=== PATIENT | male | born 1955 | race Caucasian/White ===

== ENCOUNTER → 2017-10-02 13:29 | Outpatient (CLI) | payer MEDICARE, MEDICAID, SELFPAY ==
[2017-10-02 15:00] LABS: Absolute Lymphocyte Count 2.18 X10^3/ul (0.83-4.51); Absolute Neutrophil Count 5.2 X10^3/uL (2.0-7.7); Basophil# 0.02 X10^3/uL; Basophil% 0.2 % (0-1); Eosinophil# 0.08 X10^3/uL; Hematocrit 44.6 % (40-54); Hemoglobin 14.9 g/dl (13.0-16.5); Lymphocyte # 2.18 X10^3/ul (4.0); Lymphocyte % 26.1 % (19-41); Mean Corp Hgb Conc 33.4 g/gl (32-36); Mean Corpuscular Hgb 29.5 pg (27.0-32.0); Mean Corpuscular Volume 88.3 fL (80-94); Mean Platelet Vol. 11.6 fl (6.2-12.0); Monocyte# 0.81 X10^3/uL; Monocyte% 9.7 % (0-10); Neutrophil # 5.23 X10^3/uL (2.7-7.7); Neutrophil % 62.6 % (47-70); Platelet Count 174 K/mm3 (150-450); RBC Distribution Width CV 14.7 % (11.6-14.6); RBC Distribution Width SD 47.4 fl (35.1-43.9); Red Blood Count 5.05 M/mm3 (4.6-6.2); White Blood Count 8.4 K/mm3 (4.4-11.0)
[2017-10-02 15:02] LABS: POSITIVE COUNT NO; POSITIVE DIFFERENTIAL NO; POSITIVE MORPHOLOGY NO
[2017-10-02 15:44] LABS: ALB/GLOB Ratio 1.1 RATIO (0.9-2.4); AST(SGOT) 29 U/L (15-37); Alanine Aminotransfer ALT/SGPT 32 U/L (16-61); Albumin, Serum 3.9 g/dL (3.2-5.0); Alkaline Phosphatase 52 U/L (45-117); Anion Gap 15 (5-15); BUN 22 mg/dL (7-18); Calcium,Total 9.1 mg/dL (8.5-10.1); Chloride 101 mmol/L (98-107); Creatinine, Serum 1.47 mg/dL (0.70-1.30); EST Glomerular Filtration Rate 51 mL/min (>60); Est Glom Filt Rate - Afr Amer 62 mL/min (>60); Globulin 3.6 g/dL (2.2-4.2); Glucose 312 mg/dL (74-106); Magnesium 1.5 mg/dL (1.6-2.6); Potassium 4.4 mmol/L (3.5-5.1); Protein, Total 7.5 g/dL (6.4-8.2); Sodium Level 138 mmol/L (136-145); Thyroid Stim Hormone (TSH) 3.85 uIU/mL (0.358-3.74)
== END ==
PROVIDERS: Family Provider Family Medicine; PCP Family Medicine; Visit Provider Family Medicine
DX: E11.49 Type 2 diabetes mellitus with other diabetic neurological complication (principal); E11.65 Type 2 diabetes mellitus with hyperglycemia
CPT/HCPCS: 36415; 80053; 83735; 84443; 85025

== ENCOUNTER → 2018-02-01 10:47 | Outpatient (CLI) | payer MEDICARE, MEDICAID, SELFPAY ==
[2018-02-01 09:44] VITALS: BMI 32.5
--- NOTE | 2018-02-01 10:51 | RAD_ITS ---
HISTORY: NO CURRENT CHEST COMPLAINTS, BATTERY CHANGE SCHED 02/07 EXAM: XR Chest 2 Views: COMPARISON: None FINDINGS: No significant changes. Normal heart size. Right middle lobe small calcified granuloma. No vascular congestion, pleural effusion, or acute pulmonary infiltration. Left subclavian AICD pacemaker with electrode tip in the region of the right ventricle. 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 Stable fracture of the upper sternotomy sutures. The bony thorax appears intact. RAD/Chest PA and Lateral IMPRESSION: 1. No acute cardiopulmonary disease. No significant interval change. 2. Postsurgical changes, as above. at 4090 Reported and signed by: Leonel Beyer MD Electronically Signed: Leonel Beyer, at 23:55 EST Tel , Service support ,
[2018-02-01 11:06] LABS: Bacteria 0 SEEN /hpf (None Seen); Mucous, Urine 0 SEEN /hpf (<or=2+); Red Blood Cells-Urine 0 SEEN /hpf (0-5); Squamous Epithelial Cells - UA 0 SEEN /hpf (0-5); White Blood Cells 0 SEEN /hpf (0-5)
[2018-02-01 12:18] LABS: Hematocrit 43.6 % (40-54); Hemoglobin 14.5 g/dl (13.0-16.5); Mean Corp Hgb Conc 33.3 g/gl (32-36); Mean Corpuscular Hgb 29.7 pg (27.0-32.0); Mean Corpuscular Volume 89.3 fL (80-94); Mean Platelet Vol. 11.1 fl (6.2-12.0); Platelet Count 161 K/mm3 (150-450); RBC Distribution Width CV 14.4 % (11.6-14.6); RBC Distribution Width SD 46.6 fl (35.1-43.9); Red Blood Count 4.88 M/mm3 (4.6-6.2); White Blood Count 8.8 K/mm3 (4.4-11.0)
[2018-02-01 12:25] LABS: Scan Indicated on CBC? Y/N NO
[2018-02-01 12:46] LABS: Color, Urine Yellow (Yellow); Glucose, Dipstick 1000 mg/dl (Normal); Ketone-Dipstick Negative (Negative); Leukocyte Esterase-Dipstick Negative /ul (Negative); Nitrite-Dipstick Negative (Negative); Occult Blood-Urine Negative /ul (Negative); Protein-Dipstick Negative (Negative); Specific Gravity, Urine 1.015 (1.002-1.030); Urine Bilirubin Dipstick Negative (Negative); Urine Clarity Clear (Clear); Urine Urobilinogen Normal (Normal)
[2018-02-01 12:53] LABS: International Normalized Ratio 1.6; Prothrombin Time (Protime)PT. 19.2 SECONDS (11.7-14.9)
[2018-02-01 13:38] LABS: Anion Gap 12 (5-15); BUN 24 mg/dL (7-18); BUN/Creat Ratio 18.9 RATIO (10-20); Calcium,Total 9.3 mg/dL (8.5-10.1); Chloride 102 mmol/L (98-107); Creatinine, Serum 1.27 mg/dL (0.70-1.30); EST Glomerular Filtration Rate 61 mL/min (>60); Est Glom Filt Rate - Afr Amer 73 mL/min (>60); Glucose 266 mg/dL (74-106); Potassium 4.4 mmol/L (3.5-5.1); Sodium Level 138 mmol/L (136-145)
--- OUTSIDE RECORDS SUMMARY | 2018-03-20 01:55 | XMS RPT_ITS ---
:1955 Author Organization OHIP Support Name Relationship Address Phone DIANA IRA Unavailable [address] + [place] [address] ISIAH ORTIZ Unavailable . + [place] [address] D Unavailable Unavailable Unavailable IRA ORTIZ Unavailable [address] + [place] [address] ISIAH ORTIZ Unavailable Unavailable + [place] [address] D Unavailable Unavailable Unavailable IRA ORTIZ Unavailable [address] + [place] [address] ISIAH ORTIZ Unavailable Unavailable + [place] [address] D Unavailable Unavailable Unavailable IRA ORTIZ Unavailable [address] + [place] [address] ISIAH ORTIZ Unavailable Unavailable + [place] [address] D Unavailable Unavailable Unavailable IRA ORTIZ Unavailable [address] + [place] [address] ISIAH ORTIZ Unavailable 1 + [place] [address] D Unavailable Unavailable Unavailable IRA ORTIZ Unavailable [address] + [place] [address] ISIAH ORTIZ Unavailable 1 + [place] [address] D Unavailable Unavailable Unavailable IRA ORTIZ Unavailable [address] + [facility] [place] [address] ISIAH ORTIZ Unavailable 1 + [place] [address] D Unavailable Unavailable Unavailable IRA ORTIZ Unavailable [address] + [place] [address] ISIAH ORTIZ Unavailable 1 + [place] [address] D Unavailable Unavailable Unavailable DIANAEARNEST CADETIE Unavailable [address] + [place] [address] ISIAH ORTIZ Unavailable 1 + [place] [address] D Unavailable Unavailable Unavailable DIANA, IRA Unavailable [address] + [place] [address] ISIAH ORTIZ Unavailable Unavailable + [place] [address] D Unavailable Unavailable Unavailable DIANA, IRA Unavailable [address] + [place] [address] D Unavailable Unavailable Unavailable DIANA, IRA Unavailable [address] + [place] [address] ISIAH ORTIZ Unavailable Unavailable + [place] [address] D Unavailable Unavailable Unavailable DIANA, IRA Unavailable [address] + [place] [address] D Unavailable Unavailable Unavailable DIANA, IRA Unavailable [address] + [place] [address] D Unavailable Unavailable Unavailable DIANA, IRA Unavailable [address] + [place] [address] D Unavailable Unavailable Unavailable Care Team Providers Name Role Phone Yaritza Reid Attending Unavailable Harish Carreno Attending Unavailable Garcia, Bulmaro Referring Unavailable Kayla, Berry Attending Unavailable Kayla, Berry Referring Unavailable Garcia, Bulmaro Primary Care Unavailable Farshad, Adonis Attending Unavailable Farshad, Adonis Referring Unavailable Garcia, Bulmaro Primary Care Unavailable Farshad, Adonis Attending Unavailable Farshad, Adonis Referring Unavailable Garcia, Bulmaro Primary Care Unavailable Farshad, Adonis Consulting Unavailable Shy Hernandez Attending Unavailable Garcia, Bulmaro Referring Unavailable Garcia, Bulmaro Attending Unavailable Garcia, Bulmaro Primary Care Unavailable Catherine Pierre Attending Unavailable Sidra Borja Attending Unavailable Harish Carreno Attending Unavailable Garcia, Bulmaro Referring Unavailable Garcia, Bulmaro Primary Care Unavailable Shy Hernandez Attending Unavailable Garcia, Bulmaro Referring Unavailable Garcia, Bulmaro Primary Care Unavailable Gracia, Bulmaro Attending Unavailable Garcia, Bulmaro Referring Unavailable Garcia, Bulmaro Primary Care Unavailable Shy Hernandez Attending Unavailable Garcia, Bulmaro Referring Unavailable Garcia, Bulmaro Primary Care Unavailable Shy Hernandez Attending Unavailable Garcia, Bulmaro Referring Unavailable MaryShy limon Attending Unavailable Garcia, Bulmaro Referring Unavailable PROBLEMS PROBLEMS DATE TYPE CONDITION / CODE ATTENDING STATUS SOURCE Unknown Z95.810 - Presence of Berry Garza Active [place] 8 automatic (implantable) Community cardiac defibrillator / Hospital Z95.810(ICD-10) Repository Unknown I25.5 - Ischemic KaylaJamar gibsonril Active [place] 8 cardiomyopathy / Community I25.5(ICD-10) Hospital Repository Unknown E11.49 - Type 2 diabetes Bulmaro Garcia Active [place] 8 mellitus with other Community diabetic neurological Hospital complication / Repository E11.49(ICD-10) Unknown I25.10 - Atherosclerotic Roof, Harish [facility] 8 heart disease of [place] Community coronary artery without Hospital angina pectoris / Repository I25.10(ICD-10) Unknown I10 - Essential (primary) Roof, Harish [facility] [place] 8 hypertension / Community I10(ICD-10) Hospital Repository Unknown E78.00 - Pure Roof, Harish Active [place] 8 hypercholesterolemia, Community unspecified / Hospital E78.00(ICD-10) Repository Unknown E78.0 - Pure Roof, [facility] 8 hypercholesterolemia / Community E78.0(ICD-10) Hospital Repository Unknown I26.99 - Other pulmonary Roof, Harish Active [place] 8 embolism without acute Community cor pulmonale / Hospital I26.99(ICD-10) Repository PROCEDURES PROCEDURES No Procedure Records FoundRESULTS RESULTS PACEMAKER CHECK Observed: 02/25/2018 Status: F Source: [place] 6:44 AM [facility] REPOSITORY [facility] [address] [place], [place] [address]e. [address] [place] [address] Pacemaker Check Date of Service: 02/18/18 1208 MR#: [id number] Acct: [id number] Name: PETE ORTIZ Rep #: [id number] : 1955 From: Shy Hernandez Age/Sex: 62/M Location: [facility] Status: Signed Billing Codes ICD Device Billing: ICD Dev Prog Everette, Single 02/18/18 1209 <Electronically signed by Shy Hernandez > Date Shy Hernandez 02/25/18 0644<Electronically signed by Berry Garza MD> Cosigner Signature: Date (if applicable) Berry Garza MD CC: OPERATIVE REPORT Observed: 02/07/2018 Status: F Source: [place] 10:08 AM [facility] REPOSITORY [facility] Medical Records Department [address] [place] [address] Operative Report 02/07/18 1002 MR#: [id number] Acct: [id number] Name: PETE ORTIZ Rep #: [id number] : 1955 62 From: Adonis Yen MD PCP: Bulmaro Garcia MD Status: REG [facility] Location: [facility] Operative Report Date of Procedure: 02/07/18 Preoperative diagnosis is device at end of life for normal battery depletion. Postoperative diagnosis same as above. After informed consent and IV antibiotics the patient was brought to the [place] catheterization laboratory and the skin over the device was prepped and draped in the usual sterile manner. Intermittent boluses of Versed, fentanyl and ETOMIDATE were used for sedation and analgesia as well as 1% subcutaneous lidocaine. An incision was made over the pre-existing device. Using blunt and Bovie dissection the pocket was opened and the device was removed. Careful attention was paid not to injure the pre-existing leads. The leads were removed from the device header and they were interrogated. There is normal lead function. Hemostasis was obtained. The pocket was flushed with antibiotic solution. The sponge and needle count were correct. The new device was brought to the field. The leads were placed in the appropriate position in the header and secured by the set screw. The leads and the device were then placed in the pocket. At this time, the lead shock impedance was reading values of 125 ohms repeatedly. A commanded shock revealed an impedance error code. Tachy-technical with [employer] was called. A series of trouble shooting steps were completed. The old generator was reattached to the lead and the impedance was normal both painless and commanded shock testing. With this finding, the decision was made to test the lead with a second new ICD generator. With the second new ICD generator the shock impedance painless and commanded were 112-120ohms - consistent with prior history of the lead performance. The decision was to leave the current lead in place and use the second ICD generator since the first new ICD generator was considered faulty. A Tyrex pouch was placed inthe pocket. The pocket was closed with a deep layer of running 2-0 Vicryl, a superficial layer of running 4-0 Vicryl, skin with Steri-Strips which were covered with a rolled 4 x 4 and Tegaderm. Patient left the room with the device programmed to proper parameters and there were no complications. All lead parameters were tested and found to be functionally normal. Lead and device serial and model numbers are available in the chart documents provided by the device company software sales representative procedure summary. 02/07/18 1008 <Electronically signed by Adonis Yen MD> Date Adonis Yen MD CC: Adonis Yen MD; Bulmaro Garcia MD Signed CBC-COMPLETE BLOOD CNT Collected: 02/01/2018 Status: F Source: [place] NO DIFF 11:05 AM [facility] REPOSITORY TYPE CODE TESTS RESULT OUT OF RANGE REFERENCE UNITS LAB L100.1000 4.4-11.0 K/mm3 Normal WBC 8.8 LAB L100.1200 4.6-6.2 M/mm3 Normal RBC 4.88 LAB L100.1300 13.0-16.5 g/dl Normal HGB 14.5 LAB L100.1400 40-54 % Normal HCT 43.6 LAB L100.1500 80-94 fL Normal MCV 89.3 LAB L100.1600 27.0-32.0 pg Normal MCH 29.7 LAB L100.1700 32-36 g/gl Normal MCHC 33.3 LAB L100.1810 11.6-14.6 % Normal RDW CV 14.4 LAB L100.1820 35.1-43.9 fl High RDW SD 46.6 LAB L100.1900 150-450 K/mm3 Normal PLT 161 LAB L100.2000 6.2-12.0 fl Normal MPV 11.1 Performed By: #### L100.0500 #### [facility] [address] [facility] [place], [place], [address] URINALYSIS, COMPLETE Collected: 02/01/2018 Status: F Source: [place] 11:05 AM [facility] REPOSITORY Order Comment: How was Urine Obtained? ACID POLYMERIZATION OPERATOR TO SPECIFY TYPE CODE TESTS RESULT OUT OF RANGE REFERENCE UNITS LAB L400.3000 Yellow COLOR Normal Yellow LAB L400.3050 Clear Normal CLARITY Clear LAB L400.3200 Normal mg/dl High GLUCOSE, UR 1000 LAB L400.3300 Negative mg/dL Normal BILIRUBIN URINE Negative LAB L400.3400 Negative mg/dl Normal KETONE UR Negative LAB L400.3465 1.002-1.030 Normal SP.GR. DIPSTX 1.015 LAB L400.3550 5.0 - 8.0 pH UR Normal 5.0 LAB L400.3600 Negative mg/dl PROT Normal DIPSTX Negative LAB L400.3700 Normal mg/dl Normal UROBILI Normal LAB L400.3750 Negative Normal NITRITE UR Negative LAB L400.3780 Negative /ul Normal OCCULT BLOOD-UR Negative LAB L400.3800 Negative /ul LEUK Normal ESTERASE Negative LAB L400.4050 0-5 /hpf WBC 0 Normal SEEN LAB L400.4100 0-5 /hpf 0 Normal RBC-UA SEEN LAB L400.4150 0-5 /hpf SQUAM 0 Normal EPI SEEN LAB L400.4300 None Seen /hpf 0 Normal BACTERIA SEEN LAB L400.4350 <or=2+ /hpf 0 Normal MUCUS, URINE SEEN Performed By: #### L400.0001 #### [facility] [address] [place], [address] PROTHROMBIN TIME W/INR Collected: 02/01/2018 Status: F Source: [place] 11:05 AM [facility] REPOSITORY TYPE CODE TESTS RESULT OUT OF RANGE REFERENCE UNITS LAB L300.4150 11.7-14.9 SECONDS High PROTIME 19.2 LAB L300.4200 Normal INR 1.6 Performed By: #### L300.3900 #### [facility] [address] [place], [address] BASIC METABOLIC Collected: 02/01/2018 Status: F Source: [place] PROFILE (BMP) 11:05 AM [facility] REPOSITORY TYPE CODE TESTS RESULT OUT OF RANGE REFERENCE UNITS LAB L501.0100 74-106 mg/dL High GLU 266 Result Comment: Glucose result greater than or equal to 200 mg/dL suggests DIABETES MELLITUS per A.D.A. criteria. Please note revised GLUCOSE reference range effective 2017. LAB L501.1000 7-18 mg/dL High BUN 24 LAB L501.1100 0.70-1.30 mg/dL Normal CREAT,SERUM 1.27 Result Comment: The validity of the calculated GFR AND GFRAA in patients over 70 years has not been determined. Clinical correlation is essential. LAB L501.1110 >60 mL/min Normal EST GFR 61 Result Comment: Non- GFR Calc LAB L501.1115 >60 mL/min Normal EST GFR - AA 73 Result Comment: GFR Calc LAB L501.1300 10-20 RATIO Normal BUN/CRE 18.9 LAB L501.2200 8.5-10.1 mg/dL CA Normal 9.3 LAB L501.5300 136-145 mmol/L NA Normal 138 LAB L501.5600 3.5-5.1 mmol/L K Normal 4.4 LAB L501.5900 98-107 mmol/L CL Normal 102 LAB L501.6100 21.0-32.0 mmol/L Normal CO2 24.0 LAB L501.6200 5-15 Normal GAP 12 Performed By: #### L500.2500 #### [facility] [address] [place], [address] CHEST PA AND LATERAL Observed: 02/01/2018 Status: F Source: [place] 10:51 AM [facility] REPOSITORY [facility] Imaging Services [address] [place] [address] Chest PA and Lateral MR#: [id number] Acct: [id number] Name: PETE ORTIZ Rep #: [id number] : 1955 M 62 From: Leonel Beyer MD PCP: Bulmaro Garcia MD Status: REG CLI Study: Chest PA and Lateral Date of Exam: 02/01/18 Exam# [id number] Ordering Dr: Berry Garza MD HISTORY: NO CURRENT CHEST COMPLAINTS, BATTERY CHANGE SCHED 02/07 EXAM: XR Chest 2 Views: COMPARISON: None FINDINGS: No significant changes. Normal heart size. Right middle lobe small calcified granuloma. No vascular congestion, pleural effusion, or acute pulmonary infiltration. Left subclavian AICD pacemaker with electrode tip in the region of the right ventricle. 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 Stable fracture of the upper sternotomy sutures. The bony thorax appears intact. RAD/Chest PA and Lateral IMPRESSION: 1. No acute cardiopulmonary disease. No significant interval change. 2. Postsurgical changes, as above. at 2357 Reported and signed by: Leonel Beyer MD Electronically Signed: Leonel Beyer, at 23:55 EST Tel , Service support , CC: Berry Garza MD; Bulmaro Garcia MD Rn Recovery: Signed PACEMAKER CHECK Observed: 01/21/2018 Status: F Source: [place] 8:41 AM [facility] REPOSITORY [facility] [address] [place] [address] Pacemaker Check Date of Service: 01/18/18 1648 MR#: [id number] Acct: [id number] Name: PETE ORTIZ Rep #: [id number] : 1955 From: Shy Hernandez Age/Sex: 62/M Location: [facility] Status: Signed Billing Codes ICD Device Billing: ICD Dev Prog Eval, Single 01/18/18 1651 <Electronically signed by Shy Hernandez > Date Shy Hernandez 01/21/18 0841<Electronically signed by Berry Garza MD> Cosigner Signature: Date (if applicable) Berry Garza MD CC: PACEMAKER CHECK Observed: 11/28/2017 Status: F Source: [place] 3:24 PM [facility] REPOSITORY [address] [place] [address] Pacemaker Check Date of Service: 11/27/171513 MR#: [id number] Acct: [id number] Name: PETE ORTIZ Rep #: [id number] : 1955 From: Shy Hernandez Age/Sex: 62/M Location: [facility] Status: Signed Billing Codes ICD Device Billing: ICD Dev Prog Eval, Single 11/27/17 1516 <Electronically signed by Shy Hernandez > Date Shy Hernandez 11/28/17 1524<Electronically signed by Berry Garza MD> Cosignashly Signature: Date (if applicable) Berry Garza MD CC: PACEMAKER CHECK Observed: 11/01/2017 Status: F Source: [place] 10:25 AM [facility] REPOSITORY [facility] [place] [address] [place] [address] Pacemaker Check Date of Service: 10/30/17 1357 MR#: [id number] Acct: [id number] Name: PETE ORTIZ Rep #: [id number] : 1955 From: Shy Hernandez Age/Sex: 62/M Location: [facility] Status: Signed Billing Codes ICD Device Billing: ICD Dev Prog Eval, Single 10/30/17 1358 <Electronically signed by Shy Hernandez > Date Shy Hernandez 11/01/17 1025<Electronically signed by Berry Garza MD> Cosigner Signature: Date (if applicable) Berry Garza MD CC: CBC W/DIFF, AUTOMATED Collected: 10/02/2017 Status: F Source: [place] 1:34 PM [facility] REPOSITORY Order Comment: Order Date: 09/12/17 Order Info: [id number] - CBCD TYPE CODE TESTS RESULT OUT OF RANGE REFERENCE UNITS LAB L100.1000 4.4-11.0 K/mm3 Normal WBC 8.4 LAB L100.1200 4.6-6.2 M/mm3 Normal RBC 5.05 LAB L100.1300 13.0-16.5 g/dl Normal HGB 14.9 LAB L100.1400 40-54 % Normal HCT 44.6 LAB L100.1500 80-94 fL Normal MCV 88.3 LAB L100.1600 27.0-32.0 pg Normal MCH 29.5 LAB L100.1700 32-36 g/gl Normal MCHC 33.4 LAB L100.1810 11.6-14.6 % High RDW CV 14.7 LAB L100.1820 35.1-43.9 fl High RDW SD 47.4 LAB L100.1900 150-450 K/mm3 Normal PLT 174 LAB L100.2000 6.2-12.0 fl Normal MPV 11.6 LAB L100.2100 47-70 % Normal NEUT% 62.6 LAB L100.2200 19-41 % Normal LY% 26.1 LAB L100.2300 0-10 % Normal MONO% 9.7 LAB L100.2400 0-5 % Normal EO% 1.0 LAB L100.2500 0-1 % Normal BASO% 0.2 LAB L100.2550 0.0-0.9 % Normal IM GRAN % 0.400 Result Comment: IG% - Immature Granulocytes (promyelocytes, myelocytes and metamyelocytes) > 1% indicates that a LEFT SHIFT is Present. LAB L100.2620 2.0-7.7 X10 3/uL Normal Absolute Neut 5.2 LAB L100.2720 0.83-4.51 X10 3/ul Normal Absolute Lymph 2.18 Performed By: #### L100.0100, L500.4050, L501.5200, L501.9520 #### [facility] [address] [place], [address] COMPREHENSIVE METABOLIC Collected: 10/02/2017 Status: F Source: [facility] 1:34 PM [facility] REPOSITORY Order Comment: Order Date: 09/12/17 Order Info: [id number] - CMP Order Info: [id number] - MG Order Info: 3016-3 - TSH TYPE CODE TESTS RESULT OUT OF RANGE REFERENCE UNITS LAB L501.0100 74-106 mg/dL High GLU 312 Result Comment: Glucose result greater than or equal to 200 mg/dL suggests DIABETES MELLITUS per A.D.A. criteria. Please note revised GLUCOSE reference range effective 2017. LAB L501.1000 7-18 mg/dL High BUN 22 LAB L501.1100 0.70-1.30 mg/dL High CREAT,SERUM 1.47 Result Comment: The validity of the calculated GFR AND GFRAA in patients over 70 years has not been determined. Clinical correlation is essential. LAB L501.1110 >60 mL/min Low EST GFR 51 Result Comment: Non- GFR Calc LAB L501.1115 >60 mL/min Normal EST GFR - AA 62 Result Comment: GFR Calc LAB L501.1300 10-20 RATIO Normal BUN/CRE 15.0 LAB L501.1500 6.4-8.2 g/dL T Normal PROT 7.5 LAB L501.1800 3.2-5.0 g/dL Normal ALB 3.9 LAB L501.1950 2.2-4.2 g/dL Normal GLOB 3.6 LAB L501.2000 0.9-2.4 RATIO Normal A/G 1.1 LAB L501.2200 8.5-10.1 mg/dL CA Normal 9.1 LAB L501.4100 15-37 U/L Normal AST 29 LAB L501.4305 45-117 U/L Normal ALK P 52 LAB L501.4405 16-61 U/L Normal ALT 32 LAB L501.4600 0.20-1.00 mg/dL T Normal BILI 0.80 LAB L501.5300 136-145 mmol/L NA Normal 138 LAB L501.5600 3.5-5.1 mmol/L K Normal 4.4 LAB L501.5900 98-107 mmol/L CL Normal 101 LAB L501.6100 21.0-32.0 mmol/L Normal CO2 22.0 LAB L501.6200 5-15 Normal GAP 15 Performed By: #### L100.0100, L500.4050, L501.5200, L501.9520 #### [facility] [address] [place], [address] MAGNESIUM Collected: 10/02/2017 Status: F Source: [place] 1:34 PM [facility] REPOSITORY Order Comment: Order Date: 09/12/17 Order Info: [id number] - CMP Order Info: [id number] - MG Order Info: 3016-3 - TSH TYPE CODE TESTS RESULT OUT OF RANGE REFERENCE UNITS LAB L501.5200 1.6-2.6 mg/dL Low MG 1.5 Performed By: #### L100.0100, L500.4050, L501.5200, L501.9520 #### [facility] [address] [place], [address] THYROID STIM HORMONE Collected: 10/02/2017 Status: F Source: [place] (TSH) 1:34 PM [facility] REPOSITORY Order Comment: Order Date: 09/12/17 Order Info: [id number] - CMP Order Info: [id number] - MG Order Info: 3016-3 - TSH TYPE CODE TESTS RESULT OUT OF RANGE REFERENCE UNITS LAB L501.9520 0.358-3.74 uIU/mL High TSH 3.85 Performed By: #### L100.0100, L500.4050, L501.5200, L501.9520 #### [facility] [address] [place], [address] CARDIOLOGY VISIT Observed: 07/11/2017 Status: F Source: [place] REPORT 10:55 AM [facility] REPOSITORY [facility] [address] [place] [address] OFFICE VISIT Date of Service: 07/10/17 MR#: [id number] Acct: [id number] Name: PETE ORTIZ Rep #: [id number] : 1955 Provider: HALEY Carreno Age/Sex: 62/M Location: [facility] Status: Signed HPI HPI Details: PETE ORTIZ, is a 62 M who presents to the office today for a cardiovascular outpatient follow-up. He has a history of coronary artery disease status post and plasty and bare-metal stenting of the obtuse marginal vessel in February 2005 and bypass surgery in 1999 with MENDOZA to LAD and left radial artery to RCA, ischemic cardiomyopathy status post ICD implantation, peripheral vascular disease, and hyperlipidemia. Pt. denies arm, jaw, or neck discomfort. His exercise tolerance is stable via walking 4-5 times a week. Pt. denies symptoms of CHF, lightheadedness, dizziness, near syncope, or syncopal episodes. Pt. denies edema or claudication issues. Pt. denies orthopnea, PND, fever, chills, blood in urine, blood in stool, or myalgia. He states episodes rare of heart racing. He states waxing and waning levels of fatigue. Pt. states having chest pain six months ago and four months ago. This occurred while driving and sitting at home. Both were relived with NTG. There was no associated symptoms other than anxiety. Pt. states improved shortness of breath since inhalers were adjusted by PCP. He states having rotator cuff pain that is relieved with pain medication. Intake Vital Signs07/10/17 Height 6 ft 4 in 07/10/17 Weight: 268 lb 07/10/17 Body Mass Index (BMI) 32.5 07/10/17 Blood Pressure 136/70 07/10/17 Blood Pressure Location Rt brachial Intake Visit Reasons: 6 M FU (pt missed on 4-2) Sizing End Bander Required: No Accompanied by: None Is patient in pain?: No Allergies No Known Allergies Allergy (Verified 07/10/17 15:05) Medications Atorvastatin Calcium [Lipitor] 80 mg PO QHS 10/05/13 [History Confirmed 07/10/17] Insulin Aspart [Novolog Vial] 0 unit SQ BID 10/05/13 [History Confirmed 07/10/17] Insulin Glargine [Lantus SoloStar Pen] 90 units SC QHS 10/05/13 [History Confirmed 07/10/17] Ipratropium/Albuterol Respimat [Combivent Respimat Inhal [place]] 4 puff INHALATION DAILY 10/05/13 [History Confirmed 07/10/17] Carvedilol [Coreg (Beta Tin)] 6.25 mg PO BID #60 tab 10/14/13 [Rx Confirmed 07/10/17] Furosemide [Lasix] 40 mg PO DAILY #30 tab 10/14/13 [Rx Confirmed 07/10/17] Nitroglycerin [Nitrostat] 0.4 mg SUBLINGUAL Q5M PRN #25 tab 10/14/13 [Rx Confirmed 07/10/17] Spironolactone [Aldactone] 25 mg PO DAILY #30 tab 10/14/13 [Rx Confirmed 07/10/17] Valsartan [Diovan] 160 mg PO DAILY #30 tab 10/14/13 [Rx Confirmed 07/10/17] Oxycodone HCl/Acetaminophen [Percocet 5/325] 1 - 2 tab PO Q4H PRN PRN #20 tab 12/17/13 [Rx Confirmed 07/10/17] Rivaroxaban [Xarelto] 20 mg PO DAILY 07/26/15 [History Confirmed 07/10/17] traZODone [Desyrel] 25 mg PO QHS 07/26/15 [History Confirmed 07/10/17] Albuterol Sulfate [Proventil Hfa] 6.7 gm IH 07/22/16 [History Confirmed 07/10/17] Levocetirizine Dihydrochloride [Xyzal] 5 mg PO DAILY 07/22/16 [History Confirmed 07/10/17] Metformin HCl [Glucophage] 1,000 mg PO BIDCM 07/22/16 [History Confirmed 07/10/17] hydroxyzine HCl 50 mg tablet 50 mg PO QHS tab 03/14/17 [History Confirmed 07/10/17] budesonide-formoterol HFA 160 mcg-4.5 mcg/actuation aerosol inhaler 2 puff INHALATION BID 07/10/17 [History Confirmed 07/10/17] ezetimibe 10 mg tablet 10 mg PO QDAY 07/10/17 [History Confirmed 07/10/17] umeclidinium 62.5 mcg/actuation blister powder for inhalation 1 inh INHALATION QDAY 07/10/17 [History Confirmed 07/10/17] Ejection fraction %: 35 to 39 (35% per echo 10/04/2016 at [facility] Medical History Ischemic cardiomyopathy (Chronic) Coronary atherosclerosis of [place] coronary vessel (Chronic) Diabetes mellitus (Chronic) Hyperlipidemia (Chronic) History of AR (myocardial infarction) (Chronic) Renal disease (Chronic) Palpitations (Chronic) Presence of automatic implantable cardioverter-defibrillator (Chronic 08/2007) Long-term use of high-risk medication (Chronic) BMI 33.0-33.9,adult (Chronic) Stage 2 moderate COPD by GOLD classification (Chronic) CAD (coronary artery disease) (Chronic) DM2 (diabetes mellitus, type 2) (Chronic) Pacemaker (Chronic) COPD (chronic obstructive pulmonary disease) (Chronic) Pulmonary emboli (Acute) HTN (hypertension) (Chronic) Troponin I above reference range (Acute) Dyslipidemia (Chronic) Pulmonary hypertension (Chronic) Atherosclerosis of [place] coronary artery of [place] heart without angina pectoris (Acute) DVT (deep venous thrombosis) (Chronic) IBS (irritable bowel syndrome) (Chronic) Surgical History Hx of CABG (Chronic 04/18/99) History of left heart catheterization (Chronic) History of percutaneous transluminal coronary angioplasty (Chronic) Hx of cataract extraction (Chronic) Family History Father CAD (coronary artery disease) Diabetes Brother CAD (coronary artery disease) Diabetes Mother Cancer Leukemia Brother Diabetes Social History Smoking Status: Former smoker pack-years: 39 second hand exposure: No alcohol intake: never substance use type: does not use caffeine: Yes (1/day) what type of physical activity do you participate in: none ROS Const Const: Negative for fatigue, weakness, body ache, fever(s) or chills ENT ENT: Negative for dizziness Cardio Chest Pain: Yes Palpitations: Yes Edema: None Muscle aches with walking: None Resp Respiratory: Negative for SOB with activity, SOB at rest, SOB orthopnea\SOB lying down or paroxysmal nocturnal dyspnea GI GI: Negative nausea, black,tarry stools, bright, red blood in stools or vomiting blood/hematemesis : Negative for hematuria or frequent nighttime urination/ nocturia Musc Musc: Positive for joint pain; negative for muscle aches/ myalgia Skin Skin: Negative non-healing lesions or rash Neuro Neuro: Negative for weakness, dizziness, lightheadedness, near syncope, syncope or orthostatic symptoms Endo Endo: Negative for fatigue Psych Psych: Positive for anxiety Allergy Allergy/Immunology: Negative for rash Cardiology Exam Const Appearance: cooperative, healthy appearing, comfortable and no acute distress Orientation: alert, awake and oriented x3 Head Head: normal to inspection Ears: hearing grossly normal bilaterally Nose: external nose normal Face and Sinus: face symmetric Mouth: oral mucosae normal Eyes General: appearance normal, both eyes and all related structures Eyelids: eyelids normal Neck Neck: no JVD and normal visual inspection Carotids: normal carotid upstroke Chest Chest inspection: normal inspection of the chest and normal respiratory effort; negative cough Auscultation: Bilateral: Clear to Auscultation Cardio Rate: regular rate Rhythm: regular rhythm Heart sounds: S1 normal and S2 normal; negative rub or gallop GI GI: normal to inspection Neuro General: alert, awake, oriented x3 and CN's II-XI intact bilaterally Skin Skin: no rashes or lesions noted Extremities Pulses: Normal: Right Posterior Tibial Pulse, Left Posterior Tibial Pulse, Right Radial Pulse, Left Radial Pulse Lower Extremity Edema: None: Bilateral Psych Psychological: normal affect Supplemental Info Stress test from September 2016 showed evidence of previous extensive inferolateral lateral infarct, no ischemia noted, and reduced ejection fraction of 39%. Echocardiogram from September 2016 showed an estimated ejection fraction of 35%, mild concentric LVH, mild aortic stenosis, mild aortic valve insufficiency, RVSP of 42 mmHg, moderate segmental systolic dysfunction (see wall motion), and when compared to previous study no significant changes. Heart catheterization from September 2013 showed severe three- vessel coronary artery disease with occluded obtuse marginal stent appears to place in 2005, widely patent MENDOZA to LAD, widely patent radial to RCA, left to left collateral flow, ejection fraction of 25-30% with evidence of old inferior wall myocardial infarction. Medical management was recommended. Pacemaker check from November 2016 showed no VT/VF episodes since last check 08/08/16. Left pectoral pocket/incision w/o s/s of infection or erosion. Pt offers no cardiac complaints. Presenting rhythm shows NSR @ 68 bpm. 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 B.V and CT stable (MOL1). Lead impedance, sensing and pace/sense threshold remain stable. Assessment AND Plan 1. Atherosclerosis of [place] coronary artery of [place] heart without angina pectoris I25.10 FIDEL Parish Patient's 2 episodes of chest pain appears atypical at this time. Both occurred at rest and there were no associated symptoms. His heart catheterization from 2013 showed patent MENDOZA to LAD and patent radial to RCA. His obtuse marginal stented previously in 2005 is occluded. Medical management was recommended so that the MENDOZA to LAD would not be compromised. Patient is a stress test from September 2016 was negative for stress- induced myocardial ischemia. He will continue lifestyle modification. He will continue current medications. 2. ICD (implantable cardioverter-defibrillator) in place Z95.810 ICD August 2007 FIDEL Parish Patient's most recent check November 2016 showed no VT/VF episodes. Patient's pacemaker/ICD appears to be functioning appropriately. We will continue to monitor this with routine/scheduled follow-ups. 3. Ischemic cardiomyopathy I25.5 FIDEL Parish His echocardiogram from September 2016 showed an ejection fraction of 35%. Patient denies any activity intolerance or shortness of breath. He will continue current beta-tin, ARB, Lasix, and Spironolactone. 4. Essential hypertension I10 FIDEL Parish Patient's blood pressure is well-controlled today in the office. We will continue to monitor this. We will not make any medication regimen changes. 5. Pure hypercholesterolemia E78.00; E78.0 Plan - FIDEL Matamoros Patient states this is being monitored by primary care physician. He will continue current cholesterol-lowering medications. He denies any concerning symptoms such as myalgia. 6. Other pulmonary embolism without acute cor pulmonale, unspecified chronicity I26.99 Plan - FIDEL Matamoros Patient has a history of pulmonary emboli. He will continue with factor Xa inhibitor for this. Plan Detail Additional Comments - FIDEL Matamoros Discussed the above patient with Dr. Garza, he agrees with the plan of care. Thank you for allowing us to participate in the patients plan of care, if you have any questions please do not hesitate to call. This note was generated using a voice recognition system and there may be incorrect words, spelling or punctuation that were not noted when reviewing the office note prior to saving. 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 transplanted heart: [place] heart Associated angina: without angina ICD (implantable cardioverter-defibrillator) in place Z95.810 Ischemic cardiomyopathy I25.5 Essential hypertension I10 Hypertension type: essential hypertension Pure hypercholesterolemia E78.00; E78.0 Hyperlipidemia type: pure hypercholesterolemia Other pulmonary embolism without acute cor pulmonale, unspecified chronicity I26.99 Pulmonary embolism type: other Chronicity: unspecified Acute cor pulmonale presence: without acute cor pulmonale Coding Level of Care Code Off vis,est,level 3 Diagnoses Atherosclerosis of [place] coronary artery of [place] heart without angina pectoris I25.10 Coronary Disease-Associated Artery/Lesion type: [place] artery [place] vs. transplanted heart: [place] heart Associated angina: without angina ICD (implantable cardioverter-defibrillator) in place Z95.810 Ischemic cardiomyopathy I25.5 Essential hypertension I10 Hypertension type: essential hypertension Pure hypercholesterolemia E78.00; E78.0 Hyperlipidemia type: pure hypercholesterolemia Other pulmonary embolism without acute cor pulmonale, unspecified chronicity I26.99 Pulmonary embolism type: other Chronicity: unspecified Acute cor pulmonale presence: without acute cor pulmonale 07/10/17 5911 <Electronically signed by Harish H Roof FIRE DEPARTMENT MARINE ENGINEER-C> Date Harish Carreno FIRE DEPARTMENT MARINE ENGINEER-C 07/11/17 1055<Electronically signed by Berry Garza MD> Cosigner Signature: Date (if applicable) Berry Garza MD CC: Bulmaro Garcia MD HEMOGLOBIN A1C Collected: 03/14/2017 Status: F Source: [place] 1:59 PM [facility] REPOSITORY Order Comment: Order Date: 03/14/17 Order Info: 4548-4 - A1C TYPE CODE TESTS RESULT OUT OF RANGE REFERENCE UNITS LAB L501.9985 4.2-6.3 % High HGB A1C 8.4 Performed By: #### L501.9985, L500.4050 #### [facility] [address] [place], [address] COMPREHENSIVE METABOLIC Collected: 03/14/2017 Status: F Source[facility] 1:59 PM [facility] REPOSITORY Order Comment: Order Date: 03/14/17 Order Info: 0786-1 - CMP TYPE CODE TESTS RESULT OUT OF RANGE REFERENCE UNITS LAB L501.0100 70-110 mg/dL High GLU 262 Result Comment: Glucose result greater than or equal to 200 mg/dL suggests DIABETES MELLITUS per A.D.A. criteria. LAB L501.1000 7-18 mg/dL High BUN 24 LAB L501.1100 0.70-1.30 mg/dL High CREAT,SERUM 1.36 Result Comment: The validity of the calculated GFR AND GFRAA in patients over 70 years has not been determined. Clinical correlation is essential. LAB L501.1110 >60 mL/min Low EST GFR 56 Result Comment: Non- GFR Calc LAB L501.1115 >60 mL/min Normal EST GFR - AA 68 Result Comment: GFR Calc LAB L501.1300 10-20 RATIO Normal BUN/CRE 17.6 LAB L501.1500 6.4-8.2 g/dL T Normal PROT 8.1 LAB L501.1800 3.4-5.0 g/dL Normal ALB 4.1 Result Comment: Please note revised Albumin AND Globulin reference range effective 2016. LAB L501.1950 2.2-4.2 g/dL Normal GLOB 4.0 LAB L501.2000 0.9-2.4 RATIO Normal A/G 1.0 LAB L501.2200 8.5-10.1 mg/dL Normal CA 9.5 LAB L501.4100 15-37 U/L Normal AST 18 LAB L501.4305 45-117 U/L Normal ALK P 65 LAB L501.4405 12-78 U/L Normal ALT 25 LAB L501.4600 0.20-1.00 mg/dL Normal T BILI 0.90 LAB L501.5300 136-145 mmol/L Normal NA 137 LAB L501.5600 3.5-5.1 mmol/L Normal K 4.6 LAB L501.5900 98-107 mmol/L Normal CL 99 LAB L501.6100 21.0-32.0 mmol/L Normal CO2 25.0 LAB L501.6200 5-15 Normal GAP 13 Performed By: #### L501.9985, L500.4050 #### [facility] [address] [place], [address] ALLERGIES ALLERGIES DATE TYPE / CODE NAME / CODE REACTION SEVERITY SOURCE 02/01/2018 Drug No Known Unknown [facility] Allergy/4160 Allergies/F00 Hospital 18559(SNOMED 5225008(RXNOR Repository CT) M) ENCOUNTERS ENCOUNTERS ADMIT/DISCHARGE ACCOUNT ADMITTING ENCOUNTER LOCATION SOURCE NUMBER CLASS 02/18/2018/ [id number] Ambulatory BMSBuilding:B [place] 8 2 [facility] Repository 02/07/2018 [id number] Ambulatory BMSBuilding:B [place] 0 [facility] Repository 02/07/2018/ [id number] Ambulatory [place] 8 4 [facility] ing:CLSP Repository 02/01/2018 [id number] Ambulatory [place] 7 [facility] ing:RAD Repository 02/01/2018/ [id number] Ambulatory BMSBuilding:B [place] 8 8 [facility] Repository 02/01/2018 [id number] Ambulatory BMSBuilding:B [place] 1 [facility] Repository 01/18/2018/ [id number] Ambulatory BMSBuilding:B [place] 8 7 [facility] Repository 11/27/2017/ [id number] Ambulatory BMSBuilding:B [place] 8 9 [facility] Repository 10/30/2017/ [id number] Ambulatory BMSBuilding:B [place] 8 6 [facility] Repository 10/02/2017 [id number] Ambulatory [place] 0 [facility] ing:LAB Repository 07/24/2017/ [id number] Ambulatory BMSBuilding:B [place] 8 1 [facility] Repository 07/10/2017/ [id number] Ambulatory BMSBuilding:B [place] 8 8 [facility] Repository 07/03/2017 [id number] Ambulatory BMS [place] 1 [facility] Repository 03/28/2017 [id number] Ambulatory BMSBuilding:B [place] 0 [facility] Repository 03/14/2017 [id number] Ambulatory [place] 2 [facility] ing:MFPLAB Repository PAYERS PAYERS ENCOUNTER GUARANTOR PAYER SUBSCRIBER SOURCE 02/18/2018 PETE Ye [id number] Primary PETE A [place] [facility] Insurance:MEDICARE BRENNANDOB: [address] [facility] [id number] [facility] [address]Ajl: (330) Number: Repository [phone] [id number] Date:2018-02-01 02/18/2018 Secondary PETE A [place] Insurance[facility] Number: [id number] Hospital [id number] Repository Date:2018-02-01 02/18/2018 Tertiary NOT GIVENUNK [place] Insurance:SELF PAY [facility] Number: Effective Repository Date:2018-02-01 02/07/2018 PETE [id number] Primary PETE [place] Insurance:MEDICARE BRENNANDOB: [address] PART A [facility] [id number] [address]Lqd: (330) Number: Repository [phone] () [id number] Date:2018-01-21 02/07/2018 Secondary PETE A [place] Insurance:MEDICAIDPol BRENNANDOB: Community icy Number: [id number] [place] [address] [id number] Repository Date:2018-01-21 02/07/2018 Tertiary NOT GIVENUNK [place] Insurance:SELF PAY [facility]: Effective Repository Date:2018-02-07 02/07/2018 PETE [id number] Primary PETE A [place] Insurance:MEDICARE BRENNANDOB: [address] PART A [facility] [id number] [address]Bcb: (330) Number: Repository [phone] () [id number] Date:2018-01-21 02/07/2018 Secondary PETE A [place] Insurance:MEDICAIDPol BRENNANDOB: Community icy Number: [id number] [place] [address] [id number] Repository Date:2018-01-21 02/07/2018 Tertiary NOT GIVENUNK [place] Insurance:SELF PAY [facility] Number: Effective Repository Date:2018-01-21 02/01/2018 PETE [id number] Primary PETE A [place] Insurance:MEDICARE BRENNANDOB: [address] PART A [facility] [id number] [address]Igl: (330) Number: Repository [phone] () [id number] Date:2018-02-01 02/01/2018 Secondary PETE A [place] Insurance:MEDICAIDPol BRENNANDOB: Community icy Number: [id number] [place] [address] [id number] Repository Date:2018-02-01 02/01/2018 Tertiary NOT GIVENUNK [place] Insurance:SELF PAY [facility] Number: Effective Repository Date:2018-02-01 02/01/2018 PETE [id number] Primary PETE A [place] Insurance:MEDICARE BRENNANDOB: [address] PART A [facility] [id number] [address]Ist: (330) Number: Repository [phone] () [id number] Date:2018-02-01 02/01/2018 Secondary PETE A [place] Insurance:MEDICAIDPol BRENNANDOB: [facility] icy Number: [id number] [place] [address] [id number] Repository Date:2018-02-01 02/01/2018 Tertiary NOT GIVENUNK [place] Insurance:SELF PAY [facility] Number: Effective Repository Date:2018-02-01 02/01/2018 PETE [id number] Primary PETE A [place] Insurance:MEDICARE BRENNANDOB: [address] PART A [facility] [id number] [address]Mub: (330) Number: Repository [phone] () [id number] Date:2018-02-01 02/01/2018 Secondary PETE A [place] Insurance:MEDICAIDPol BRENNANDOB: [facility] icy Number: [id number] [place] [address] [id number] Repository Date:2018-02-01 02/01/2018 Tertiary NOT GIVENUNK [place] Insurance:SELF PAY [facility] Number: Effective Repository Date:2018-02-01 01/18/2018 PETE [id number] Primary PETE A [place] Insurance:MEDICARE BRENNANDOB: [address] PART A [facility] [id number] [address]Isa: (330) Number: Repository [phone] () [id number] Date:2018-01-16 01/18/2018 Secondary PETE A [place] Insurance:MEDICAIDPol BRENNANDOB: [facility] icy Number: [id number] [place] [address] [id number] Repository Date:2018-01-16 01/18/2018 Tertiary NOT GIVENUNK [place] Insurance:SELF PAY [facility] Number: Effective Repository Date:2018-01-18 11/27/2017 PETE [id number] Primary PETE A [place] Insurance:MEDICARE BRENNANDOB: [address] PART A [facility] [id number] Hospital [address]Var: (330) Number: Repository [phone] () [id number] Date:2017-10-30 11/27/2017 Secondary PETE A [place] Insurance:MEDICAIDPol BRENNANDOB: [facility] icy Number: [id number] [place] [address] [id number] Repository Date:2017-10-30 11/27/2017 Tertiary NOT GIVENUNK [place] Insurance:SELF PAY [facility] Number: Effective Repository Date:2017-11-27 10/30/2017 PETE [id number] Primary PETE [place] Insurance:MEDICARE BRENNANDOB: [address] PART A [facility] [id number] [address]Moi: (330) Number: Repository [phone] () [id number] Date:2017-08-02 10/30/2017 Secondary PETE A [place] Insurance:MEDICAIDPol BRENNANDOB: [facility] icy Number: [id number] Hospital [id number] Repository Date:2017-08-02 10/30/2017 Tertiary NOT GIVENUNK [place] Insurance:SELF PAY [facility] Number: Effective Repository Date:2017-10-30 10/02/2017 PETE [id number] Primary PETE A [place] Insurance:MEDICARE BRENNANDOB: [address] PART A [facility] [id number] [place] [address]Oau: (330) Number: Repository [phone] () [id number] Date:2017-10-02 10/02/2017 Secondary PETE A [place] Insurance:MEDICAIDPol BRENNANDOB: [facility] icy Number: [id number] Hospital [id number] Repository Date:2017-02-19 10/02/2017 Tertiary NOT GIVENUNK [place] Insurance:SELF PAY [facility] Number: Effective Repository Date:2017-10-02 07/24/2017 PETE A [id number] Primary PETE A [place] Insurance:MEDICARE BRENNANDOB: [address] PART A [facility] [id number] Hospital [address]Kue: (330) Number: Repository [phone] () [id number] Date:2017-06-12 07/24/2017 Secondary PETE A [place] Insurance:CARESOURCEP BRENNANDOB: [facility] Number: [id number] Hospital [id number] Repository Date:2017-06-12[address]ATTN: [place] [address]XB: 07/24/2017 Tertiary NOT GIVENUNK [place] Insurance:SELF PAY [facility] Number: Effective Repository Date:2017-08-04 07/10/2017 PETE A [id number] Primary PETE A [place] Insurance:MEDICARE BRENNANDOB: [address] PART A [facility] [id number] Hospital [address]Bkw: (330) Number: Repository [phone] () [id number] Date:2017-06-12 07/10/2017 Secondary PETE A [place] Insurance:CARESOURCEP BRENNANDOB: [facility] Number: [id number] Hospital [id number] Repository Date:2017-06-12[address]ATTN: [place] [address]DL: 07/10/2017 Tertiary PETE A [place] Insurance:MEDICAIDPol BRENNANDOB: [facility] Number: Effective [id number] Hospital Date:2017-06-12 Repository 07/10/2017 Tertiary NOT GIVENUNK [place] Insurance:SELF PAY [facility] Number: Effective Repository Date:2017-07-10 07/03/2017 PETE A [id number] Primary PETE A [place] Insurance:MEDICARE BRENNANDOB: [address] PART A [facility] [id number] Hospital [address]Piz: (330) Number: Repository [phone] () [id number] Date:2017-07-03 07/03/2017 Secondary PETE A [place] Insurance:CARESOURCEP BRENNANDOB: Community [facility]y Number: [id number] Hospital [id number] Repository Date:2017-07-03[address]ATTN: [place] [address]FR: 07/03/2017 Tertiary NOT GIVENUNK [place] Insurance:SELF PAY [facility] Number: Effective Repository Date:2017-07-03 03/28/2017 PETE A [id number] Primary PETE A [place] Insurance:MEDICARE BRENNANDOB: [address], [place] PART A [facility] [id number] Hospital [address]Ytv: (330) Number: Repository [phone] () [id number] Date:2017-03-28 03/28/2017 Secondary PETE A [place] Insurance:CARESOURCEP BRENNANDOB: [facility] Number: [id number] Hospital [id number] Repository Date:2017-03-28[address]ATTN: [place] [address]KN: 03/28/2017 Tertiary NOT GIVENUNK [place] Insurance:SELF PAY [facility] Number: Effective Repository Date:2017-03-28 03/14/2017 PETE A [id number] Primary PETE A [place] Insurance:MEDICARE BRENNANDOB: [address], [place] PART A [facility] [id number] Hospital [address]Fto: (330) Number: Repository [phone] () [id number] Date:2017-03-14 03/14/2017 Secondary PETE A [place] Insurance:CARESOURCEP BRENNANDOB: [facility] Number: [id number] Hospital [id number] Repository Date:2017-03-14[address]ATTN: [place] [address]MA: 03/14/2017 Tertiary NOT GIVENUNK [place] Insurance:SELF PAY [facility] Number: Effective Repository Date:2017-03-14
== END ==
PROVIDERS: Family Provider Family Medicine; PCP Family Medicine; Referring Provider Internal Medicine Cardiovascular Disease; Visit Provider Internal Medicine Cardiovascular Disease
DX: I25.5 Ischemic cardiomyopathy (principal); Z95.810 Presence of automatic (implantable) cardiac defibrillator
CPT/HCPCS: 36415; 71046; 80048; 81001; 85027; 85610

== ENCOUNTER 2018-02-07 06:35 | Day surgery (SDC) | payer MEDICARE, MEDICAID, SELFPAY ==
[2018-02-01 09:44] VITALS: BMI 32.5
[2018-02-06 10:52] VITALS: BMI 32.5
--- NOTE | 2018-02-07 10:02 | PCM.OP.BLANK ---
Operative Report Date of Procedure: 02/07/18 Preoperative diagnosis is device at end of life for normal battery depletion. Postoperative diagnosis same as above. After informed consent and IV antibiotics the patient was brought to the [facility] and the skin over the device was prepped and draped in the usual sterile manner. Intermittent boluses of Versed, fentanyl and ETOMIDATE were used for sedation and analgesia as well as 1% subcutaneous lidocaine. An incision was made over the pre-existing device. Using blunt and Bovie dissection the pocket was opened and the device was removed. Careful attention was paid not to injure the pre-existing leads. The leads were removed from the device header and they were interrogated. There is normal lead function. Hemostasis was obtained. The pocket was flushed with antibiotic solution. The sponge and needle count were correct. The new device was brought to the field. The leads were placed in the appropriate position in the header and secured by the set screw. The leads and the device were then placed in the pocket. At this time, the lead shock impedance was reading values of 125 ohms repeatedly. A commanded shock revealed an impedance error code. Tachy-technical with [employer] was called. A series of trouble shooting steps were completed. The old generator was reattached to the lead and the impedance was normal both painless and commanded shock testing. With this finding, the decision was made to test the lead with a second new ICD generator. With the second new ICD generator the shock impedance painless and commanded were 112-120ohms - consistent with prior history of the lead performance. The decision was to leave the current lead in place and use the second ICD generator since the first new ICD generator was considered faulty. A Tyrex pouch was placed inthe pocket. The pocket was closed with a deep layer of running 2-0 Vicryl, a superficial layer of running 4-0 Vicryl, skin with Steri-Strips which were covered with a rolled 4 x 4 and Tegaderm. Patient left the room with the device programmed to proper parameters and there were no complications. All lead parameters were tested and found to be functionally normal. Lead and device serial and model numbers are available in the chart documents provided by the device company software support representative procedure summary.
== END 2018-02-07 11:15 | disposition home or self-care (01) ==
PROVIDERS: Family Provider Family Medicine; PCP Family Medicine; Referring Provider Internal Medicine Cardiovascular Disease; Visit Provider Internal Medicine Cardiovascular Disease
DX: I25.5 Ischemic cardiomyopathy (principal); Z00.6 Encounter for examination for normal comparison and control in clinical research program; Z95.810 Presence of automatic (implantable) cardiac defibrillator; R42 Dizziness and giddiness; R06.02 Shortness of breath; I25.10 Atherosclerotic heart disease of native coronary artery without angina pectoris; E78.5 Hyperlipidemia, unspecified; E11.9 Type 2 diabetes mellitus without complications; E66.9 Obesity, unspecified; J44.9 Chronic obstructive pulmonary disease, unspecified; I25.2 Old myocardial infarction; Z95.1 Presence of aortocoronary bypass graft; Z95.5 Presence of coronary angioplasty implant and graft; Z87.891 Personal history of nicotine dependence; Z68.32 Body mass index [BMI] 32.0-32.9, adult
CPT/HCPCS: 33262; 93641; 99152; 99153; J7040; J7050

== ENCOUNTER → 2018-03-25 12:33 | Outpatient (CLI) | payer MEDICARE, MEDICAID, SELFPAY ==
[2018-02-06 10:52] VITALS: BMI 32.5
--- NOTE | 2018-03-25 12:37 | ART_ITS ---
Reason For Study: Atherosclerosis with intermittant claudication Procedure A bilateral lower extremity continuous wave Doppler with analog waveform analysis and ankle brachial indexes. Left Segmental Pressures Left brachial= 116mmHg. Left posterior tibial artery = 115mmHg. Left dorsalis pedis artery = 91mmHg. Left digit = 60 mmHg. The left dorsalis pedis waveforms are biphasic. The left posterior tibial artery waveforms are biphasic. Right Segmental Pressures Right brachial= 98mmHg. Right posterior tibial artery = 151mmHg. Right dorsalis pedis artery = 77mmHg. Right digit = 50 mmHg. The right dorsalis pedis waveforms are biphasic. The right posterior tibial artery waveforms are biphasic. Indices The right ankle brachial index by the dorsalis pedis is .66. The right ankle brachial index by the posterior tibial artery is 1.3. The right digital-brachial index is .43. The left ankle brachial index by the dorsalis pedis is .78. The left ankle brachial index by the posterior tibial artery is .99. The left digital-brachial index is .52. Interpretation Summary 1. Right OTTO 1.3 and biphasi flow. 2. Left OTTO 0.99 and bi[hasic flow. 3. Bilateral small vessel disease with dbi 0.43/0.52. Ordering Physician: Eloy Peacock Referring Physician: Bulmaro Garcia MD Performed By: Rosemarie Mixon RVT and Student
== END ==
PROVIDERS: Family Provider Family Medicine; PCP Family Medicine; Referring Provider Surgery Vascular Surgery; Visit Provider Surgery Vascular Surgery
DX: I70.213 Atherosclerosis of native arteries of extremities with intermittent claudication, bilateral legs (principal); E78.00 Pure hypercholesterolemia, unspecified; E11.59 Type 2 diabetes mellitus with other circulatory complications; F17.200 Nicotine dependence, unspecified, uncomplicated; I11.9 Hypertensive heart disease without heart failure
CPT/HCPCS: 93922

== ENCOUNTER 2019-02-11 23:43 | Emergency (ER) | payer MEDICARE, MEDICAID, SELFPAY ==
[2018-09-05 12:46] VITALS: BMI 31.4
[2019-02-11 23:44] VITALS: BP 116/70; PULSE 104; RESP 15; TEMP 36.3; O2SAT 96; BMI 31.1
--- NOTE | 2019-02-11 23:53 | CT_ITS ---
STUDY: CT ABDOMEN AND PELVIS WITHOUT CONTRAST REASON FOR EXAM: Male, 63 years old. diarrhea, ABD PAIN RADIATION DOSAGE (If Supplied By Facility): CTDIvol = ( 18.23 ) mGy, DLP = ( 1210.10 ) mGycm TECHNIQUE: Transaxial images were obtained from the dome of the diaphragm to the symphysis pubis without oral contrast, and without intravenous contrast. Sagittal and coronal images were reconstructed. Individualized dose optimization techniques were used for this CT. COMPARISON: None. FINDINGS: The visualized lung bases are unremarkable. The visualized portions of the heart are within normal limits. Normal liver. There are surgical clips in the gallbladder fossa consistent with a prior cholecystectomy. There are multiple benign calcified granulomata of the spleen. Mild atrophy otherwise normal pancreas. Normal bilateral adrenal glands. Minimal bilateral nonspecific perinephric stranding otherwise normal right kidney. Normal left kidney. Distended stomach with no hiatal hernia. Normal small intestine. Fluid within the colon which may indicate sequela of nonspecific enteritis. There is mild diverticulosis with no signs of diverticulitis. The appendix is visualized and appears normal. There is diffuse atherosclerotic calcification of the abdominal aorta, without a demonstrated aneurysm. Normal inferior vena cava. Normal retroperitoneum. Normal urinary bladder. Normal visualized prostate gland. Normal abdominal wall. There is grade 1 anterolisthesis of L5 on S1 with pars defect of L5. Multilevel degenerative disease throughout the spine more severe from L3 to S1. CT/Abdomen/Pelvis W IV Cont ONLY IMPRESSION: Possible nonspecific enteritis. No signs of bowel obstruction. No acute appendicitis. Mild diverticulosis with no signs of diverticulitis. Electronically Signed: Terese Moreno MD at 2:22 EST , Service support ,
[2019-02-12] MEDS: Ondansetron 4 MG/2 ML Vial IV (00:01)
[2019-02-12] MEDS: 0.9% Normal Saline 1,000 ML 1000 ML IV (00:01)
[2019-02-12 00:19] LABS: Absolute Lymphocyte Count 2.29 X10^3/uL (0.83-4.51); Absolute Neutrophil Count 6.3 X10^3/uL (2.0-7.7); Basophil# 0.03 X10^3/uL; Basophil% 0.3 % (0-1); Eosinophil# 0.17 X10^3/uL; Eosinophils% 1.7 % (0-5); Hematocrit 50.7 % (40-54); Hemoglobin 17.4 g/dL (13.0-16.5); Lymphocyte # 2.29 X10^3/ul (4.0); Lymphocyte % 23.4 % (19-41); Mean Corp Hgb Conc 34.3 g/dL (32-36); Mean Corpuscular Hgb 30.1 pg (27.0-32.0); Mean Corpuscular Volume 87.7 fL (80-94); Mean Platelet Vol. 10.9 fl (6.2-12.0); Monocyte% 10.2 % (0-10); NRBC Flagged by Analyzer 0 % (0-5); Neutrophil # 6.25 X10^3/uL (2.7-7.7); Platelet Count 229 K/mm3 (150-450); RBC Distribution Width CV 14.1 % (11.6-14.6); RBC Distribution Width SD 44.6 fl (35.1-43.9); Red Blood Count 5.78 M/mm3 (4.6-6.2); White Blood Count 9.8 K/mm3 (4.4-11.0)
[2019-02-12 00:29] LABS: ALB/GLOB Ratio 1.1 RATIO (0.9-2.4); AST(SGOT) 21 U/L (15-37); Alanine Aminotransfer ALT/SGPT 35 U/L (16-61); Albumin, Serum 4.2 g/dL (3.2-5.0); Alkaline Phosphatase 63 U/L (45-117); Anion Gap 9 (5-15); BUN 29 mg/dL (7-18); Calcium,Total 10.2 mg/dL (8.5-10.1); Chloride 104 mmol/L (98-107); Creatinine, Serum 1.61 mg/dL (0.70-1.30); EST Glomerular Filtration Rate 46 mL/min (>60); Est Glom Filt Rate - Afr Amer 56 mL/min (>60); Estimated Creatinine Clearance 56.16 ml/min; Globulin 3.9 g/dL (2.2-4.2); Glucose 75 mg/dL (74-106); Lipase 69 U/L (73-393); Potassium 3.4 mmol/L (3.5-5.1); Protein, Total 8.1 g/dL (6.4-8.2); Sodium Level 139 mmol/L (136-145)
[2019-02-12 00:47] LABS: Red Blood Cells-Urine 0 SEEN /hpf (0-5); White Blood Cells 0 SEEN /hpf (0-5)
[2019-02-12 00:49] LABS: Color, Urine Yellow (Yellow); Glucose, Dipstick 100 mg/dl (Normal); Ketone-Dipstick 5 mg/dl (Negative); Leukocyte Esterase-Dipstick Negative /ul (Negative); Nitrite-Dipstick Negative (Negative); Occult Blood-Urine Negative /ul (Negative); Protein-Dipstick 30 mg/dl (Negative); Urine Bilirubin Dipstick Negative (Negative); Urine Clarity Sl. Cloudy (Clear); Urine Urobilinogen Normal (Normal)
[2019-02-12 01:00] LABS: Bacteria RARE /hpf (None Seen); Mucous, Urine 1+ /hpf (<or=2+); Squamous Epithelial Cells - UA 0-5 SEEN /hpf (0-5)
[2019-02-12 01:18] VITALS: BP 127/74; PULSE 92; RESP 18; TEMP 37.3; O2SAT 97
--- NOTE | 2019-02-12 02:13 | ED.RN ---
PATIENT PUT ON HIS CALL LIGHT AND SAID I AM HAVING TROUBLE BREATHING HIS REGULAR NURSE WAS AT [facility] SO MYSELF AND ANOTHER NURSE WENT BACK TO CHECK ON HIM. HIS O2 WAS 96% ON ROOM AIR. I ASKED THE PATIENT WHAT DID YOU COME IN FOR? SINCE HE WAS NO MY PATIENT AND HE PROCEEDED TO SAY YOU DON'T KNOW, YOU DON'T KNOW?' I EXPLAINED TO HIM THAT WE WERE NOT HIS NURSES AND WE DIDN'T CHECK WHAT HE WAS HERE FOR PRIOR TO ADDRESSING HIS SHORTNESS OF BREATH. HE SAID THIS IS THE WORSE VISIT I HAVE EVER HAD, I DIDN'T HAVE MY CALL LIGHT, I HAD TO ASK FOR PAIN MEDICATIONS EARLIER TWICE. I WILL BE WRITING A LETTER TO ADMINISTRATION WHEN I GET OUT OF HERE WE APOLOGIZED TO THE PATIENT, AND EXPLAINED THAT WE HAD A CRITICAL PATIENT COME IN AND THERE IS JUST ONE DOCTOR AT THIS TIME AT NIGHT. PATIENT STATES THEN YOU NEED TO HIRE MORE DOCTORS . HIS NEEDS WERE BROUGHT TO THE ATTENTION TO DR. KAUR FOR A REQUEST FOR PAIN MEDICATION AND AN ALBUTERAL INHALER. BOTH OF THESE ITEMS WERE BROUGHT INTO HIS PROMPTLY BY TIA NORTH
[2019-02-12] MEDS: Morphine 4 MG/ML Syringe IV (02:16)
[2019-02-12 02:20] VITALS: BP 161/81; PULSE 97; RESP 20; O2SAT 95
--- NOTE | 2019-02-12 02:36 | ED.RN ---
UPDATED PT FINE WITH THAT.THAT HIS CAT SCAN RESULTS AND LABS ARE BACK AND THAT THE MD IS AWARE AND WILL BE IN TO GO OVER FINDINGS.PT
--- NOTE | 2019-02-12 02:43 | ED.RN ---
0035 CHECKED ON PT AND FOUND HIM AT THE END OF THE BED.PT STATED THAT HE WAS READY TO YELL SINCE HE DID NOT HAVE HIS CALL VALENTINO. PLACED CALL VALENTINO ON THE BED AND ORIENTED HIM TO IT.ASKED PT IF HE COULD GIVE A URINE SPECIMEN AND HE STATED HE COULD. 0040 URINE SPECIMEN COLLECTED.PT DENIES NEEDING ANYTHING AT THIS TIME.
--- NOTE | 2019-02-12 02:45 | ED.RN ---
0018 REPORT OBTAINED FROM KRIS Lobato
--- NOTE | 2019-02-12 02:52 | ED.DCSUM_ITS ---
- ER Visit Summary Date of Service: 02/12/19 Chief Complaint: Diarrhea History of Present Illness: The patient is a 63 M with diarrhea for 2 days. The patient also reports lower abdominal pain. He feels weak. He says he is eating and drinking okay, but is concerned he is getting dehydrated. Physical Examination: Afebrile and vital signs unremarkable except for heart rate of 104. Exam is unremarkable except for some very mild lower abdominal tenderness. No guarding or rebound. Test Results: Hemoglobin 17.4. Potassium 3.4, BUN 29, creatinine 1.61. Hepatic panel and lipase unremarkable. Urinalysis unremarkable. Patient CT shows nonspecific enteritis. Otherwise unremarkable. Emergency Department Course and Treatment: Patient treated with IV fluids and Zofran. He requested something for pain and received morphine while awaiting results. He also has a history of COPD and uses an inhaler. He requested a Ventolin treatment here. Labs were all fairly unremarkable. CT is showing signs of enteritis. I believe the patient has gastroenteritis given his symptoms. He is better on reevaluation. We will discharge with a course of Zofran. Stay hydrated. Return for any new or worsening issues. Patient voiced understanding and agreement. Treatment Plan: As above Disposition: Discharge Impression: 1. Gastroenteritis This note was generated with [employer] dictation software. It may contain incorrect words, spelling, and punctuation that were not noted in review of the chart prior to signing ED Disposition - Plan for ED Patient: Referrals: Bulmaro Garcia MD [Primary Care Provider] -
--- NOTE | 2019-02-12 02:54 | ED.DEP ---
ED Disposition - Plan for ED Patient: Instructions: VOMITING AND DIARRHEA, Nonspecific (Adult) Prescriptions: Ondansetron [Zofran Odt] 4 mg PO Q8H PRN PRN #10 tab PRN Reason: Nausea Prescription Printed Referrals: Bulmaro Garcia MD [Primary Care Provider] -
[2019-02-12 03:00] VITALS: BP 159/80; PULSE 111; RESP 18; O2SAT 93
== END 2019-02-12 03:01 | disposition home or self-care (01) ==
LOC: ED 02-12 00:08
PROVIDERS: Emergency Provider Emergency Medicine; Family Provider Family Medicine; PCP Family Medicine
DX: K52.9 Noninfective gastroenteritis and colitis, unspecified (principal); J44.9 Chronic obstructive pulmonary disease, unspecified; I25.10 Atherosclerotic heart disease of native coronary artery without angina pectoris; I25.2 Old myocardial infarction; E11.9 Type 2 diabetes mellitus without complications; E78.00 Pure hypercholesterolemia, unspecified; I35.0 Nonrheumatic aortic (valve) stenosis; I27.20 Pulmonary hypertension, unspecified; Z95.810 Presence of automatic (implantable) cardiac defibrillator; Z79.4 Long term (current) use of insulin; Z79.84 Long term (current) use of oral hypoglycemic drugs; Z79.899 Other long term (current) drug therapy; Z87.891 Personal history of nicotine dependence
CPT/HCPCS: 74177; 80053; 81001; 83690; 85025; 94640; 96361; 96374; 96375; 99285; J7030; Q9967; A4216; J2405

== ENCOUNTER → 2019-02-28 09:55 | Outpatient (CLI) | payer MEDICARE, MEDICAID, SELFPAY ==
[2019-02-11 23:44] VITALS: BMI 31.1
[2019-02-28 12:29] LABS: Erythrocyte Sedimentation Rate 24 mm/hr (0-20)
[2019-02-28 12:38] LABS: Absolute Lymphocyte Count 1.72 X10^3/uL (0.83-4.51); Absolute Neutrophil Count 5.9 X10^3/uL (2.0-7.7); Basophil# 0.07 X10^3/uL; Basophil% 0.8 % (0-1); Eosinophil# 0.07 X10^3/uL; Eosinophils% 0.8 % (0-5); Hematocrit 43.2 % (40-54); Lymphocyte # 1.72 X10^3/ul (4.0); Lymphocyte % 20.3 % (19-41); Mean Corp Hgb Conc 32.4 g/dL (32-36); Mean Corpuscular Hgb 29.1 pg (27.0-32.0); Mean Corpuscular Volume 89.8 fL (80-94); Mean Platelet Vol. 10.9 fl (6.2-12.0); Monocyte% 8.2 % (0-10); NRBC Flagged by Analyzer 0 % (0-5); Neutrophil % 69.5 % (47-70); Platelet Count 222 K/mm3 (150-450); RBC Distribution Width CV 14.1 % (11.6-14.6); RBC Distribution Width SD 45.2 fl (35.1-43.9); Red Blood Count 4.81 M/mm3 (4.6-6.2); White Blood Count 8.5 K/mm3 (4.4-11.0)
[2019-02-28 14:17] LABS: AST(SGOT) 30 U/L (15-37); Alanine Aminotransfer ALT/SGPT 31 U/L (16-61); Albumin, Serum 3.7 g/dL (3.2-5.0); Alkaline Phosphatase 59 U/L (45-117); Anion Gap 9 (5-15); BUN 17 mg/dL (7-18); BUN/Creat Ratio 12.8 RATIO (10-20); CRP < 2.90 mg/L (0.0-3.0); Calcium,Total 9.3 mg/dL (8.5-10.1); Chloride 104 mmol/L (98-107); Creatinine, Serum 1.33 mg/dL (0.70-1.30); EST Glomerular Filtration Rate 57 mL/min (>60); Est Glom Filt Rate - Afr Amer 69 mL/min (>60); Globulin 3.6 g/dL (2.2-4.2); Glucose 254 mg/dL (74-106); Potassium 4.9 mmol/L (3.5-5.1); Protein, Total 7.3 g/dL (6.4-8.2); Sodium Level 136 mmol/L (136-145)
== END ==
PROVIDERS: Family Provider Family Medicine; PCP Family Medicine; Referring Provider Family Medicine; Visit Provider Family Medicine
DX: K52.9 Noninfective gastroenteritis and colitis, unspecified (principal)
CPT/HCPCS: 36415; 80053; 85025; 85652; 86140

== ENCOUNTER → 2019-07-02 16:54 | Outpatient (CLI) | payer MEDICARE, SELFPAY ==
[2019-04-08 12:57] VITALS: BMI 30.5
[2019-07-02 18:03] LABS: Microalbumin,Random Urine 7.4 mg/L (NO RANGE EST.); Microalbumin:Creatinine Ratio 7.8 mg/g CRE (<30 mg/g CRE)
[2019-07-02 18:05] LABS: Hemoglobin A1c 8.6 % (4.2-6.3)
[2019-07-02 18:06] LABS: ALB/GLOB Ratio 1.1 RATIO (0.9-2.4); AST(SGOT) 25 U/L (15-37); Alanine Aminotransfer ALT/SGPT 31 U/L (16-61); Albumin, Serum 3.7 g/dL (3.2-5.0); Alkaline Phosphatase 59 U/L (45-117); Anion Gap 8 (5-15); BUN 28 mg/dL (7-18); BUN/Creat Ratio 18.5 RATIO (10-20); Calcium,Total 9.1 mg/dL (8.5-10.1); Chloride 106 mmol/L (98-107); Creatinine, Serum 1.51 mg/dL (0.70-1.30); EST Glomerular Filtration Rate 49 mL/min (>60); Est Glom Filt Rate - Afr Amer 60 mL/min (>60); Globulin 3.3 g/dL (2.2-4.2); Glucose 195 mg/dL (74-106); Potassium 4.3 mmol/L (3.5-5.1); Sodium Level 141 mmol/L (136-145)
== END ==
PROVIDERS: PCP Family Medicine; Referring Provider Family Medicine; Visit Provider Family Medicine
DX: E11.65 Type 2 diabetes mellitus with hyperglycemia (principal); E11.49 Type 2 diabetes mellitus with other diabetic neurological complication
CPT/HCPCS: 36415; 80053; 82043; 82570; 83036

== ENCOUNTER → 2019-10-01 14:23 | Outpatient (CLI) | payer MEDICARE, SELFPAY ==
[2019-04-08 12:57] VITALS: BMI 30.5
[2019-10-01 17:50] LABS: Absolute Lymphocyte Count 2.12 X10^3/uL (0.83-4.51); Absolute Neutrophil Count 4.5 X10^3/uL (2.0-7.7); Basophil# 0.05 X10^3/uL; Basophil% 0.7 % (0-1); Eosinophil# 0.12 X10^3/uL; Eosinophils% 1.6 % (0-5); Hematocrit 44.6 % (40-54); Hemoglobin 14.3 g/dL (13.0-16.5); Lymphocyte # 2.12 X10^3/ul (4.0); Lymphocyte % 28.7 % (19-41); Mean Corp Hgb Conc 32.1 g/dL (32-36); Mean Corpuscular Volume 90.5 fL (80-94); Mean Platelet Vol. 11.8 fl (6.2-12.0); Monocyte# 0.61 X10^3/uL; Monocyte% 8.3 % (0-10); NRBC Flagged by Analyzer 0 % (0-5); Neutrophil # 4.46 X10^3/uL (2.7-7.7); Neutrophil % 60.3 % (47-70); Platelet Count 159 K/mm3 (150-450); RBC Distribution Width CV 13.9 % (11.6-14.6); RBC Distribution Width SD 45.8 fl (35.1-43.9); Red Blood Count 4.93 M/mm3 (4.6-6.2); White Blood Count 7.4 K/mm3 (4.4-11.0)
[2019-10-01 18:09] LABS: ALB/GLOB Ratio 1.1 RATIO (0.9-2.4); AST(SGOT) 27 U/L (15-37); Alanine Aminotransfer ALT/SGPT 32 U/L (16-61); Albumin, Serum 3.9 g/dL (3.2-5.0); Alkaline Phosphatase 51 U/L (45-117); Anion Gap 12 (5-15); BUN 23 mg/dL (7-18); BUN/Creat Ratio 17.6 RATIO (10-20); Calcium,Total 9.1 mg/dL (8.5-10.1); Chloride 101 mmol/L (98-107); Creatinine, Serum 1.31 mg/dL (0.70-1.30); EST Glomerular Filtration Rate 58 mL/min (>60); Est Glom Filt Rate - Afr Amer 70 mL/min (>60); Globulin 3.5 g/dL (2.2-4.2); Glucose 285 mg/dL (74-106); Potassium 4.5 mmol/L (3.5-5.1); Protein, Total 7.4 g/dL (6.4-8.2); Sodium Level 136 mmol/L (136-145)
[2019-10-01 18:27] LABS: Amphetamine Urine VISTA NEGATIVE (<1000 ng/mL); Barbiturate Urine VISTA NEGATIVE (< 200 ng/mL); Benzodiazepine Urine VISTA NEGATIVE (< 200 ng/mL); Cocaine Urine VISTA NEGATIVE (< 300 ng/mL); Ecstacy Urine VISTA NEGATIVE (< 500 ng/mL); Methadone Urine VISTA NEGATIVE (< 300 ng/mL); PCP Urine VISTA NEGATIVE (< 25 ng/mL); THC Urine VISTA NEGATIVE (< 50 ng/mL); Vista UDS pH Range 5
[2019-10-01 18:32] LABS: Microalbumin,Random Urine 5.2 mg/L (NO RANGE EST.); Microalbumin:Creatinine Ratio 22.3 mg/g CRE (<30 mg/g CRE)
[2019-10-01 19:55] LABS: OXY Internal Control LINE = VALID (VALID); Oxycodone Drug Screen Positive (<100 ng/mL)
== END ==
PROVIDERS: PCP Family Medicine; Referring Provider Family Medicine; Visit Provider Family Medicine
DX: J44.9 Chronic obstructive pulmonary disease, unspecified (principal); F11.20 Opioid dependence, uncomplicated; E11.65 Type 2 diabetes mellitus with hyperglycemia
CPT/HCPCS: 36415; 80053; 80307; 80365; 82043; 82570; 85025; G0480

== ENCOUNTER → 2020-03-10 13:51 | Outpatient (CLI) | payer MEDICARE, SELFPAY ==
[2020-02-25 14:31] VITALS: BMI 31.4
--- NOTE | 2020-03-10 13:54 | ECHOCS_ITS ---
Reason For Study: CHF Procedure This was a 2D Doppler, Color Flow transthoracic echocardiogram. Contrast injection was performed. The study was technically difficult. Exam performed in department. Left Ventricle Normal LV size. The estimated ejection fraction is 40 %. Mild to moderate global left ventricular systolic dysfunction. There is mild to moderate global hypokinesis of the left ventricle. Infero- Basal: Akinetic. Posterior-Basal: Akinetic. Mitral Valve Bileaflet diffuse mitral valve thickening. Mild (1+) eccentric mitral valve insufficiency. Tricuspid Valve Normal tricuspid valve. Mild (1+) tricuspid valve insufficiency. Pulmonary artery systolic pressure is 34 mmHg. Aortic Valve The aortic valve is not well visualized. Mild (1+) aortic valve insufficiency. Great Vessels Normal aortic root. The pulmonary artery is normal size. Normal inferior vena cava. Pericardium/Pleural No pericardial effusion. Medication 22 gauge I.V. with prn adaptor inserted into right arm. Diluted definity 3ml given slow IV push to enhance endocardial definition. MMode/2D Measurements & Calculations LVIDd: 5.9 cm IVSd: 1.9 cm LVOT diam: 2.0 cm LVIDs: 5.0 cm LVPWd: 1.3 cm LVOT area: 3.2 cm2 FS: 13.9 % LAV(MOD-bp): 59.2 ml LA A4 area: 20.1 cm2 RA A4 area: 19.6 cm2 LAV(MOD-bp) Indexed: 24.3 ml/m2 LAV(MOD-sp2): 51.3 ml LAV(MOD-sp4): 63.3 ml Time Measurements MV dec time: 0.30 sec Doppler Measurements & Calculations MV E max luigi: 73.5 cm/sec Lat Peak E' Luigi: 7.5 cm/sec Med Peak E' Luigi: 5.9 cm/sec MV A max luigi: 95.7 cm/sec E/E' lat: 9.8 E/E' med: 12.4 MV E/A: 0.77 MV V2 max: 127.1 cm/sec MV P1/2t max luigi: 112.7 cm/sec Ao V2 max: 188.5 cm/sec MV max P.5 mmHg MV P1/2t: 81.4 msec Ao max P.2 mmHg MV V2 mean: 68.8 cm/sec Ao V2 mean: 117.7 cm/sec MV mean P.2 mmHg MV dec slope: 405.4 cm/sec2 Ao mean P.6 mmHg MV V2 VTI: 35.3 cm MVA(P1/2t): 2.7 cm2 Ao V2 VTI: 33.5 cm MVA(VTI): 1.9 cm2 SARAY(I,D): 2.0 cm2 SARAY(V,D): 1.9 cm2 AI max luigi: 357.2 cm/sec LV V1 max: 109.9 cm/sec MR max luigi: 478.8 cm/sec AI max P.0 mmHg LV V1 max P.8 mmHg MR max P.7 mmHg AI dec slope: 196.1 cm/sec2 LV V1 mean P.4 mmHg AI P1/2t: 533.6 msec LV V1 mean: 70.8 cm/sec LV V1 VTI: 20.7 cm SV(LVOT): 67.4 ml PA V2 max: 135.8 cm/sec TR max luigi: 277.6 cm/sec TR max P.8 mmHg Interpretation Summary Normal LV size. The estimated ejection fraction is 40 %. Mild to moderate global left ventricular systolic dysfunction. There is mild to moderate global hypokinesis of the left ventricle. Mild (1+) tricuspid valve insufficiency. Infero-Basal: Akinetic. Posterior-Basal: Akinetic. Compared to previous study, the left ventricular systolic function has improved.. Contrast injection was performed. Ordering Physician: Harish Carreno Referring Physician: Bulmaro Garcia Performed By: Florentino Martinez RCS
== END ==
PROVIDERS: PCP Family Medicine; Referring Provider Nurse Practitioner Family; Visit Provider Nurse Practitioner Family
DX: I25.5 Ischemic cardiomyopathy (principal); I25.10 Atherosclerotic heart disease of native coronary artery without angina pectoris; I10 Essential (primary) hypertension; E78.00 Pure hypercholesterolemia, unspecified; I35.0 Nonrheumatic aortic (valve) stenosis; Z95.1 Presence of aortocoronary bypass graft; Z95.5 Presence of coronary angioplasty implant and graft
CPT/HCPCS: 93306; Q9957; A4216; C8929

== ENCOUNTER → 2020-03-29 14:50 | Outpatient (CLI) | payer MEDICARE, MEDICAID, SELFPAY ==
[2020-02-25 14:31] VITALS: BMI 31.4
[2020-03-29 18:22] LABS: Absolute Neutrophil Count 5.1 X10^3/uL (2.0-7.7); Basophil# 0.06 X10^3/uL; Basophil% 0.7 % (0-1); Eosinophil# 0.11 X10^3/uL; Eosinophils% 1.3 % (0-5); Hematocrit 44.2 % (40-54); Hemoglobin 14.5 g/dL (13.0-16.5); Lymphocyte % 26.3 % (19-41); Mean Corp Hgb Conc 32.8 g/dL (32-36); Mean Corpuscular Hgb 29.5 pg (27.0-32.0); Mean Corpuscular Volume 89.8 fL (80-94); Mean Platelet Vol. 11.9 fl (6.2-12.0); Monocyte# 0.81 X10^3/uL; Monocyte% 9.7 % (0-10); NRBC Flagged by Analyzer 0 % (0-5); Neutrophil # 5.14 X10^3/uL (2.7-7.7); Neutrophil % 61.5 % (47-70); Platelet Count 177 K/mm3 (150-450); RBC Distribution Width CV 14.4 % (11.6-14.6); RBC Distribution Width SD 46.5 fl (35.1-43.9); Red Blood Count 4.92 M/mm3 (4.6-6.2); White Blood Count 8.4 K/mm3 (4.4-11.0)
[2020-03-29 18:59] LABS: ALB/GLOB Ratio 1.2 RATIO (0.9-2.4); AST(SGOT) 22 U/L (15-37); Alanine Aminotransfer ALT/SGPT 28 U/L (16-61); Albumin, Serum 4.2 g/dL (3.2-5.0); Alkaline Phosphatase 53 U/L (45-117); Anion Gap 9 (5-15); BUN 33 mg/dL (7-18); BUN/Creat Ratio 21.7 RATIO (10-20); Calcium,Total 9.4 mg/dL (8.5-10.1); Chloride 99 mmol/L (98-107); Creatinine, Serum 1.52 mg/dL (0.70-1.30); EST Glomerular Filtration Rate 49 mL/min (>60); Est Glom Filt Rate - Afr Amer 59 mL/min (>60); Globulin 3.6 g/dL (2.2-4.2); Glucose 294 mg/dL (74-106); Potassium 4.7 mmol/L (3.5-5.1); Protein, Total 7.8 g/dL (6.4-8.2); Sodium Level 132 mmol/L (136-145)
== END ==
PROVIDERS: PCP Family Medicine; Visit Provider Family Medicine
DX: E11.49 Type 2 diabetes mellitus with other diabetic neurological complication (principal); J44.9 Chronic obstructive pulmonary disease, unspecified
CPT/HCPCS: 36415; 80053; 85025

== ENCOUNTER 2020-05-31 16:41 | Inpatient (IN) | payer MEDICARE, SELFPAY ==
[2020-02-25 14:31] VITALS: BMI 31.4
[2020-05-31] VITALS (8 sets, daily range): BP systolic 100–147; BP diastolic 64–79; PULSE 72–80; RESP 16–18; TEMP 36.6–37.6; O2SAT 95–99; BMI 31.0; BMI 31.9; BMI 32.0
--- NOTE | 2020-05-31 17:48 | US_ITS ---
STUDY: VENOUS DOPPLER ULTRASOUND - RIGHT LOWER EXTREMITY REASON FOR EXAM: Male, 64 years old. RT TOE REDNESS- MOVING UP LEG PT ON XARELTO TECHNIQUE: Ultrasound evaluation of the deep vein system to include holloway-scale imaging and compression was performed. Holloway-scale imaging and Doppler sonographic evaluation, including duplex spectral analysis and qualitative color flow sonography, was performed. COMPARISON: None. FINDINGS: Common Femoral Vein: Normal compression, spontaneity and augmentation. Normal color Doppler. Common Femoral Vein/Greater Saphenous Junction: Normal compression, spontaneity and augmentation. Normal color Doppler. Deep Femoral Vein: Normal compression, spontaneity and augmentation. Normal color Doppler. Femoral Proximal: Normal compression, spontaneity and augmentation. Normal color Doppler. Femoral Middle: Normal compression, spontaneity and augmentation. Normal color Doppler. Femoral Distal: Normal compression, spontaneity and augmentation. Normal color Doppler. Popliteal Vein: Normal compression, spontaneity and augmentation. Normal color Doppler. Posterior Tibial Vein: Normal compression, spontaneity and augmentation. Normal color Doppler. Peroneal Vein: Normal compression, spontaneity and augmentation. Normal color Doppler. US/Venous Duplex Imag/Limited/Uni IMPRESSION: Normal venous Doppler ultrasound of the right lower extremity. Electronically Signed: Jb Caruso MD at 18:48 EDT Tel , Service support ,
[2020-05-31 18:21] LABS: Absolute Lymphocyte Count 1.89 X10^3/uL (0.83-4.51); Absolute Neutrophil Count 6.1 X10^3/uL (2.0-7.7); Basophil# 0.04 X10^3/uL; Basophil% 0.4 % (0-1); Eosinophil# 0.09 X10^3/uL; Hematocrit 43.4 % (40-54); Hemoglobin 13.9 g/dL (13.0-16.5); Lymphocyte # 1.89 X10^3/ul (4.0); Lymphocyte % 20.9 % (19-41); Mean Corpuscular Hgb 29.1 pg (27.0-32.0); Monocyte# 0.89 X10^3/uL; Monocyte% 9.8 % (0-10); NRBC Flagged by Analyzer 0 % (0-5); Neutrophil # 6.09 X10^3/uL (2.7-7.7); Neutrophil % 67.5 % (47-70); Platelet Count 206 K/mm3 (150-450); RBC Distribution Width CV 13.7 % (11.6-14.6); RBC Distribution Width SD 45.6 fl (35.1-43.9); Red Blood Count 4.77 M/mm3 (4.6-6.2)
[2020-05-31 18:29] LABS: Anion Gap 6 (5-15); BUN 21 mg/dL (7-18); BUN/Creat Ratio 16.7 RATIO (10-20); Calcium,Total 9.4 mg/dL (8.5-10.1); Chloride 98 mmol/L (98-107); Creatinine, Serum 1.26 mg/dL (0.70-1.30); EST Glomerular Filtration Rate 61 mL/min (>60); Est Glom Filt Rate - Afr Amer 73 mL/min (>60); Glucose 295 mg/dL (74-106); Potassium 3.8 mmol/L (3.5-5.1); Sodium Level 133 mmol/L (136-145)
--- NOTE | 2020-05-31 18:30 | RAD_ITS ---
STUDY: X-RAY - RIGHT FOOT CLINICAL: Male, 64 years old. Cellulitis. TECHNIQUE: 3 view(s) of the foot. COMPARISON: None. FINDINGS: Normal talus, calcaneus, and tarsal bones. Normal visualized subtalar, talonavicular, calcaneocuboid, tarsal and tarsometatarsal articulations. Normal first through fourth metatarsi. There is a mildly displaced transverse fracture through the base of the fifth metatarsal. Normal metatarsophalangeal joint of the great toe. Normal tibial and fibular sesamoid bones. Normal interphalangeal joint of the great toe. Normal phalanges of the great toe. Normal second through fifth metatarsophalangeal joints. Normal interphalangeal joints and phalanges of the lesser toes. There is soft tissue swelling about the lateral foot. RAD/Foot min 3 Views IMPRESSION: Fracture of the proximal fifth metatarsal. Electronically Signed: Bruno Bradshaw DO at 19:19 EDT Tel [phone], Service support ,
[2020-05-31 18:40] LABS: Lactic Acid 3.1 mmol/L (0.4-1.9)
[2020-05-31 18:57] LABS: Erythrocyte Sedimentation Rate 43 mm/hr (0-20)
[2020-05-31] MEDS: 0.9% Normal Saline 1,000 ML 999 ML IV (19:03)
[2020-05-31 22:14] LABS: Reflex Lactate? Y
--- NOTE | 2020-05-31 22:21 | HP.PCM_ITS ---
<Gema Kowalski - Last Filed: 05/31/20 22:21> Problem List (1) Cellulitis of right foot Status: Acute (2) Diabetes mellitus type 2, controlled, with complications Status: Acute (3) COPD (chronic obstructive pulmonary disease) Status: Chronic (4) History of implantable cardiac defibrillator (ICD) Status: Chronic Comment: 08/2007 implanted, Gen Change 01/2018 (5) History of coronary artery stent placement Status: Resolved Comment: PCI-BMS-OM1 w/ 3.0 x 12 mm, 3.0 x 16 mm and 3.5 x 12 mm Banks Stents 02/27/2005 OCCLUDED Stents per [facility] 2007 and 2013 (6) H/O coronary artery bypass surgery Status: Resolved Comment: CABG x 2: MENDOZA-LAD, RAD-RCA 04/18/1999 (7) Essential (primary) hypertension Status: Chronic (8) Hyperlipidemia Status: Chronic (9) Diabetic neuropathy associated with type 2 diabetes mellitus Status: Chronic History of Present Illness Date of Admission: 05/31/20 Chief Complaint: Foot infection, failed outpatient treatment The patient is a 64 year old M presents today to the ER by direction of his flight superintendent Dr. Gutierrez for right foot wound that is failed outpatient treatment. Patient recently completed doxycycline course with no improvement to wound. Patient presents with redness from tip of big toe to mid arch on right foot. There is an open area noted to the underside of the right big toe. Right foot is warm, erythematous, and inflamed. Patient states area is tender to touch. W [place] in ER patient was started on vancomycin which patient immediately developed severe hives to infusion area. Vancomycin was stopped at that time. After consulting with [place] pharmacist patient will be on clindamycin and Zosyn pending blood and wound culture results. Patient has medical history of hypertension, atherosclerotic heart disease with history of 7 stents and CABG x2, diabetes mellitus type 2, psoriatic arthritis, and neuropathy. Patient reports presence of an AICD. Lactic acid 3.1, however white blood cell count is within normal limits, CRP 22.4. Patient denies other symptoms. Past Medical History Past Medical History (Chronic Problems): Chronic Problems (Last Reviewed 05/31/20 @ 22:33 by Gema Kowalski, [employer]-C) COPD (chronic obstructive pulmonary disease) (Chronic) Diabetic neuropathy associated with type 2 diabetes mellitus (Chronic) History of implantable cardiac defibrillator (ICD) (Chronic 02/07/18) 08/2007 implanted, Gen Change 01/2018 Atherosclerosis of hopi coronary artery of hopi heart without angina pectoris (Chronic) Old inferior wall myocardial infarction (Chronic 02/27/05) Ischemic cardiomyopathy (Chronic) Non-rheumatic aortic stenosis (Chronic) Secondary pulmonary arterial hypertension (Chronic) NSVT (nonsustained ventricular tachycardia) (Chronic) Essential (primary) hypertension (Chronic) Hyperlipidemia (Chronic) Claudication (Chronic) Medical History: Medical History (Last Reviewed 05/31/20 @ 22:33 by Gema Kowalski, [employer]) Atherosclerosis of hopi coronary artery of hopi heart without angina pectoris (Chronic) I25.10 Old inferior wall myocardial infarction (Chronic) Onset Date: 02/27/05 I25.2 History of non-ST elevation myocardial infarction (NSTEMI) (Resolved) Onset Date: 10/11/13 I25.2 Ischemic cardiomyopathy (Chronic) I25.5 Non-rheumatic aortic stenosis (Chronic) I35.0 Secondary pulmonary arterial hypertension (Chronic) I27.21 NSVT (nonsustained ventricular tachycardia) (Chronic) I47.2 Essential (primary) hypertension (Chronic) I10 Hyperlipidemia (Chronic) E78.5 Claudication (Chronic) I73.9 COPD (chronic obstructive pulmonary disease) J44.9 Chronic kidney disease N18.9 DVT (deep venous thrombosis) I82.409 IBS (irritable bowel syndrome) K58.9 Obesity E66.9 Type 2 diabetes mellitus E11.9 Pulmonary embolism Onset Date: 09/2013 I26.99 2007, 2013 Allergies No Known Allergies Allergy (Verified 05/31/20 16:42) Home Medications: Ambulatory Orders Medication Instructions Recorded Atorvastatin Calcium [Lipitor] 80 mg PO DAILY 10/05/13 Insulin Aspart [Novolog Vial] 80 unit SQ BID 10/05/13 Nitroglycerin (INPATIENT USE) 0.4 mg SUBLINGUAL Q5M PRN #25 tab 10/14/13 [Nitrostat] Albuterol Sulfate [Proventil Hfa] 6.7 gm IH Q4H PRN PRN 07/22/16 hydroxyzine HCl 50 mg tablet 50 mg PO QHS tab 03/14/17 ezetimibe 10 mg tablet 10 mg PO DAILY 07/10/17 losartan 50 mg tablet 50 mg PO DAILY 02/01/18 rivaroxaban 15 mg tablet 20 mg PO DAILY tab 02/25/20 trazodone 50 mg tablet 50 mg PO QHS tab 02/25/20 Carvedilol [Coreg (Beta Tin)] 6.25 mg PO BID 05/31/20 Furosemide [Lasix] 40 mg PO DAILY 05/31/20 Insulin Aspart [Novolog Flexpen See Protocol [place] TIDCM 05/31/20 ([facility])] Levemir 80 unit SQ BID 05/31/20 Levocetirizine Dihydrochloride 5 mg PO QHS 05/31/20 Oxycodone HCl/Acetaminophen 1 tablet PO Q4H PRN 05/31/20 [Percocet 5/325] Umeclidinium Brm/Vilanterol Tr 1 puff PO DAILY 05/31/20 [Anoro Ellipta 62.5-25 Mcg INH] Victoza 1.8 mg SQ DAILY 05/31/20 Surgical History: Surgical History (Last Reviewed 05/31/20 @ 22:33 by Gema Kowalski NP-C) History of implantable cardiac defibrillator (ICD) (Chronic) Onset Date: 02/07/1808/2007 implanted, Gen Change 01/2018 History of coronary artery stent placement (Resolved) Onset Date: 02/27/05 Z95.5 PCI-BMS-OM1 w/ 3.0 x 12 mm, 3.0 x 16 mm and 3.5 x 12 mm Banks Stents 02/27/2005 OCCLUDED Stents per [facility] 2007 and 2013 H/O coronary artery bypass surgery (Resolved) Onset Date: 04/18/99 Z95.1 CABG x 2: MENDOZA-LAD, RAD-RCA 04/18/1999 Hx of cataract extraction Z98.49 History of left heart catheterization Onset Date: 10/13/13 Z98.890 1999, 02/2005, 03/14/2007, 10/13/13 Surgical History: coronary bypass surgery, pacemaker implantation Psychiatric History: No pertinent psych hx Lives: Alone Smoking Status: Former smoker Alcohol: None Drugs: None - *Family History Maternal Family History: Family History (Last Reviewed 02/25/20 @ 15:18 by Harish Carreno NP, [employer]) Father CAD (coronary artery disease) Diabetes Brother CAD (coronary artery disease) Diabetes Mother Cancer Brother Diabetes History Items: No pertinent history Review of Systems Constitutional: Denies: Chills, Fever, Weight Change HEENT: Denies: Head Aches, Sinus Congestion, Sinus Drainage Cardiovascular: Denies: Chest Pain, Palpitations Respiratory: Denies: Cough, Shortness of breath at rest, Sputum production Gastrointestinal: Denies: Abdominal Pain, Nausea, Vomiting Genitourinary: Denies: Dysuria Musculoskeletal: Reports: Foot Pain - Right. Denies: Joint Pain, Joint Tenderness Skin: Reports: Wounds. Denies: Rash Neurological: Denies: Numbness, Tingling, Focal weakness Psychiatric: Denies: Anxiety, Depression, Homicidal Ideations, Suicidal Ideations Hematologic/ Lymphatic: Denies: Easy Bruising, Easy Bleeding VTE Information - Inpt Only VTE Present on Admission: No VTE Mechan Device Prophylaxis: None VTE Pharm Prophylaxis ordered?: No Patient Problems: Active and Suspected Problems (Last Reviewed 05/31/20 @ 22:33 by Gema Kowalski [employer]) Diabetes mellitus type 2, controlled, with complications (Acute) Cellulitis of right foot (Acute) - Physical Exam Vitals/I&O's: Vital Signs Temp Pulse Resp BP Pulse Ox 99.6 F H 79 18 141/78 H 98 05/31/20 21:07 05/31/20 21:07 05/31/20 21:07 05/31/20 21:07 05/31/20 21:07 Oxygen Delivery Method Room Air Weight: 255 lb Body Mass Index (BMI) 31.0 Intake and Output for Last 24 Hours 05/29/20 05/30/20 05/31/20 23:59 23:59 23:59 Intake Total 1466.67 / 1466.67 Balance 1466.67 / 1466.67 General: Alert, Oriented x3, Cooperative HEENT: Atraumatic, PERRLA, EOMI, Normocephalic Neck: Supple, No JVD, Negative Carotid Bruits Lungs: Clear to auscultation, Normal air movement Cardiovascular: Regular rate, No murmurs Abdomen: Bowel Sounds Present, Soft, Non Tender Extremities: Capillary Refill Less than 3 Seconds, Peripheral Pulses Normal, - - Right foot erythematous, warm and inflamed with open area to right medial aspect of great toe Skin: No rashes, Ulcer/ Wound - Open area to medial aspect of right great toe Musculoskeletal: Tenderness - Tenderness to right foot Neurological: Cranial nerves II-XII grossly intact Psych/Mental Status: Normal Affect, Appropriate Laboratory Results 05/31/20 16:57: WBC 9.0, RBC 4.77, Hgb 13.9, Hct 43.4, MCV 91.0, MCH 29.1, MCHC 32.0, RDW Std Deviation 45.6 H, RDW Coeff of Eula 13.7, Plt Count 206, MPV 11.0, Immature Gran % (Auto) 0.400, Neut % (Auto) 67.5, Lymph % (Auto) 20.9, [place] % (Auto) 9.8, Eos % (Auto) 1.0, Baso % (Auto) 0.4, Absolute Neuts (auto) 6.1, Absolute Lymphs (auto) 1.89, Nucleated RBC % 0, ESR 43 H 05/31/20 16:57: Sodium 133 L, Potassium 3.8, Chloride 98, Carbon Dioxide 29.0, Anion Gap 6, BUN 21 H, Creatinine 1.26, Estim Creat Clear Calc 70.80, Est GFR (MDRD) Af Amer 73, Est GFR (MDRD) Non-Af 61, BUN/Creatinine Ratio 16.7, Glucose 295 H, Calcium 9.4, C-React Prot Ext Range 22.40 H 05/31/20 16:57: Lactic Acid 3.1 H* Assessment/Plan All Active Problems (Last Reviewed 05/31/20 @ 22:33 by Gema Kowalski, [employer]) Diabetes mellitus type 2, controlled, with complications (Acute) Cellulitis of right foot (Acute) History of coronary artery stent placement (Resolved 02/27/05) H/O coronary artery bypass surgery (Resolved 04/18/99) History of non-ST elevation myocardial infarction (NSTEMI) (Resolved 10/11/13) 1. Cellulitis of the right foot -To [facility] for IV therapy -Dr. Gutierrez consulted for continued treatment -Consult wound nurse -Due to reaction patient had 2 vancomycin in ER clindamycin and Zosyn initiated pending blood and wound culture. -Normal saline 100 ml/hr ordered. -Trend CBC and CMP daily -MRI ordered for rule out osteomyelitis pending evaluation of patient AICD for compatibility with MRI. -PT/OT to eval and treat 2. Diabetes mellitus type 2, controlled, with complications -We will continue patient home medication regimen of Lantus and Humalog -Hold Victoza -AC at bedtime blood sugar checks with sliding scale insulin ordered 3. Diabetic neuropathy -Patient currently not on medication regimen 4. COPD -Well-controlled at this time. 5. Essential hypertension -Continue spironolactone, losartan, Lasix, and carvedilol. 6. Hyperlipidemia -Continue atorvastatin 7. History of implantable cardiac defibrillator -Implanted 2007, GEN change 01/2018 8. History of coronary artery stent placement -Most recent stent placement February 2005 9. History of coronary artery bypass surgery -CABG x2, March 1999 DVT prophylaxis-not indicated, patient on Xarelto This patient was seen by FIDEL Sena under the supervision of Dr. Eaton. <Paolo Eaton - Last Filed: 05/31/20 23:03> History of Present Illness The patient is a 64 year old M [] Past Medical History Medical History: Medical History (Last Reviewed 05/31/20 @ 22:33 by LIBBY SenaC) Atherosclerosis of hopi coronary artery of hopi heart without angina pectoris (Chronic) I25.10 Old inferior wall myocardial infarction (Chronic) Onset Date: 02/27/05 I25.2 History of non-ST elevation myocardial infarction (NSTEMI) (Resolved) Onset Date: 10/11/13 I25.2 Ischemic cardiomyopathy (Chronic) I25.5 Non-rheumatic aortic stenosis (Chronic) I35.0 Secondary pulmonary arterial hypertension (Chronic) I27.21 NSVT (nonsustained ventricular tachycardia) (Chronic) I47.2 Essential (primary) hypertension (Chronic) I10 Hyperlipidemia (Chronic) E78.5 Claudication (Chronic) I73.9 COPD (chronic obstructive pulmonary disease) J44.9 Chronic kidney disease N18.9 DVT (deep venous thrombosis) I82.409 IBS (irritable bowel syndrome) K58.9 Obesity E66.9 Type 2 diabetes mellitus E11.9 Pulmonary embolism Onset Date: 09/2013 I26.99 2007, 2013 Allergies No Known Allergies Allergy (Verified 05/31/20 16:42) Surgical History: Surgical History (Last Reviewed 05/31/20 @ 22:33 by FIDEL Sena) History of implantable cardiac defibrillator (ICD) (Chronic) Onset Date: 02/07/1808/2007 implanted, Gen Change 01/2018 History of coronary artery stent placement (Resolved) Onset Date: 02/27/05 Z95.5 PCI-BMS-OM1 w/ 3.0 x 12 mm, 3.0 x 16 mm and 3.5 x 12 mm Banks Stents 02/27/2005 OCCLUDED Stents per [facility] 2007 and 2013 H/O coronary artery bypass surgery (Resolved) Onset Date: 04/18/99 Z95.1 CABG x 2: MENDOZA-LAD, RAD-RCA 04/18/1999 Hx of cataract extraction Z98.49 History of left heart catheterization Onset Date: 10/13/13 Z98.890 1999, 02/2005, 03/14/2007, 10/13/13 - *Family History Maternal Family History: Family History (Last Reviewed 02/25/20 @ 15:18 by Harish Carreno [employer], [employer]-C) Father CAD (coronary artery disease) Diabetes Brother CAD (coronary artery disease) Diabetes Mother Cancer Brother Diabetes - Physical Exam Vitals/I&O's: Vital Signs Temp Pulse Resp BP Pulse Ox 98.7 F 75 18 139/71 H 97 05/31/20 22:28 05/31/20 22:28 05/31/20 22:28 05/31/20 22:28 05/31/20 22:28 Oxygen Delivery Method Room Air Weight: 119.2 kg Body Mass Index (BMI) 31.9 Intake and Output for Last 24 Hours 05/29/20 05/30/20 05/31/20 23:59 23:59 23:59 Intake Total 1466.67 / 1466.67 Balance 1466.67 / 1466.67 Laboratory Results 05/31/20 16:57: WBC 9.0, RBC 4.77, Hgb 13.9, Hct 43.4, MCV 91.0, MCH 29.1, MCHC 32.0, RDW Std Deviation 45.6 H, RDW Coeff of [place]ula 13.7, Plt Count 206, MPV 11.0, Immature Gran % (Auto) 0.400, Neut % (Auto) 67.5, Lymph % (Auto) 20.9, [place] % (Auto) 9.8, Eos % (Auto) 1.0, Baso % (Auto) 0.4, Absolute Neuts (auto) 6.1, Absolute Lymphs (auto) 1.89, Nucleated RBC % 0, ESR 43 H 05/31/20 16:57: Sodium 133 L, Potassium 3.8, Chloride 98, Carbon Dioxide 29.0, Anion Gap 6, BUN 21 H, Creatinine 1.26, Estim Creat Clear Calc 70.80, Est GFR (MDRD) Af Amer 73, Est GFR (MDRD) Non-Af 61, BUN/Creatinine Ratio 16.7, Glucose 295 H, Calcium 9.4, C-React Prot Ext Range 22.40 H 05/31/20 16:57: Lactic Acid 3.1 H* 05/31/20 22:25: Lactic Acid Pending Current Medications Acetaminophen (Acetaminophen 325 Mg Tablet) 650 mg PO Q6H PRN PRN PRN Reason: Pain Score 1-10/Temp > 100.7 F Sodium Chloride () 1,000 mls @ 100 mls/hr IV .Q10H ITALIA Clindamycin Phosphate 900 mg/ (Dextrose) 106 mls @ 150 mls/hr IV Q8 ITALIA Piperacillin Sod/Tazobactam (Sod 3.375 gm/ Sodium Chloride) 50 mls @ 12.5 mls/hr IV Q8 ITALIA Insulin Human Lispro (Insulin Lispro 100 Unit/Ml Insuln.Pen) 0 unit SC ACHS ITALIA; Protocol Melatonin (Melatonin 3 Mg Tablet) 3 mg PO QHS PRN PRN PRN Reason: INSOMNIA Ondansetron HCl (Ondansetron 4 Mg/2 Ml Vial) 4 mg IV Q8H PRN PRN PRN Reason: NAUSEA/VOMITING Assessment/Plan Patient was seen and examined. I agree with assessment and plan by Gema Kowalski NP. Patient had right big toe biopsied about 2 weeks ago. Thereafter he developed infection and was treated with doxycycline. He completed doxycycline the day before presentation. He has noticed progressively worsening of right toe redness and now it has progressed to his right foot distal right leg. He saw his PCP and podiatry on the same day of presentation. Reportedly right big toe was debrided at flight superintendent office and he was instructed come to the Hospital for IV antibiotics. Reportedly at the ED he was started on vancomycin but developed chills and redness with vancomycin. He is alert and oriented Heart sounds S1-S2 present Lung clear to auscultate Abdomen bowel sounds present soft nontender nondistended. Left leg and leg foot with induration R big toe with eschar and serous drainage; erythema of right big toe; right foot and distal right leg. Tender right foot and right leg. Impression Infected right foot wound with surrounding cellulitis extending to distal right leg. Started on vancomycin but had allergies to it. Review emergency department labs showed elevated CRP and ESR. With elevated lactic acidosis. Lactic acidosis likely secondary to tissue hypoxia. Trend lactic acid Clindamycin and Zosyn ordered. Podiatry consult MRI of right toe and right folds if pacemaker with ICD is MRI compatible Diabetes mellitus Blood glucose on presentation was now within goal Continue home basal insulin. Check Accu-Cheks and add correction scale insulin ordered. Prandial insulin ordered. Ischemic cardiomyopathy With a pacemaker and ICD Stable Review of records shows that EF (from stress test) in 2017 was if ejection fraction of 39% An echocardiogram in 2013 showed ejection fraction of 35% Continue beta-blockers, ALEXANDER receptor blockers; and Lasix History of DVT/PE Xarelto continued. Inpatient E&M: 84183 Init Hosp L3
[2020-05-31 23:26] LABS: Bedside Glucose 140 mg/dL (70-110)
[2020-05-31 23:28] LABS: Lactic Acid 2.8 mmol/L (0.4-1.9)
[2020-06-01] VITALS (8 sets, daily range): BP systolic 95–141; BP diastolic 53–76; PULSE 73–99; RESP 16–18; TEMP 36.7–37.1; O2SAT 94–99
--- NOTE | 2020-06-01 00:02 | ED.DCSUM_ITS ---
- ER Visit Summary Date of Service: 06/01/20 Chief Complaint: Right foot redness History of Present Illness: The patient is a 64 M presenting with redness to right foot. Patient states 2 weeks ago he had a biopsy performed by Dr. Gutierrez. He states he developed infection following that. He just finished 1 week course of doxycycline. He was seen today and advised to come to the ED for failed outpatient treatment and worsening cellulitis. He denies fever. Denies chest pain or shortness of breath. Patient is on Xarelto for history of previous DVT. Denies other complaints. Physical Examination: Vitals are stable. Patient is afebrile. Alert no acute distress. HEENT exam is unremarkable. Neck is supple. Lungs are clear and equal bilaterally. Heart is regular rate and rhythm. Abdomen is soft nontender nondistended. Extremities erythema right great toe with erythema extending to his right calf. Normal cap refill and normal pulses. Skin is warm and dry. Remainder of exam is unremarkable. Emergency Department Course and Treatment: CBC, chemistries unremarkable other than glucose 295. ESR 43, CRP 22.4. Lactic acid 3.1. Patient was given vancomycin and IV fluids. Right foot x-ray read by myself and radiology shows fracture of the proximal fifth metatarsal. Patient states this is a chronic fracture. Venous Doppler right lower extremity shows normal venous Doppler ultrasound of the right lower extremity. Discussed with hospitalist for admission. Disposition: Admission Impression: Right lower extremity cellulitis This note was generated with [employer] dictation software. It may contain incorrect words, spelling, and punctuation that were not noted in review of the chart prior to signing ED Disposition - Plan for ED Patient: Disposition: Acute Care [facility]
[2020-06-01] MEDS: 0.9% Saline Lock 10 ML Syringe IV ×2 (00:43→14:59)
[2020-06-01] MEDS: Acetaminophen 325 MG Tablet 650 MG PO ×2 (00:49→11:15)
[2020-06-01] MEDS: oxyCODONE 5 MG Tablet PO ×4 (00:49→22:22)
[2020-06-01 01:36] LABS: Bedside Glucose 282 mg/dL (70-110)
[2020-06-01 06:25] LABS: Absolute Lymphocyte Count 2.23 X10^3/uL (0.83-4.51); Absolute Neutrophil Count 4.3 X10^3/uL (2.0-7.7); Basophil# 0.04 X10^3/uL; Basophil% 0.5 % (0-1); Eosinophils% 1.3 % (0-5); Hematocrit 37.3 % (40-54); Hemoglobin 11.6 g/dL (13.0-16.5); Lymphocyte # 2.23 X10^3/ul (4.0); Mean Corp Hgb Conc 31.1 g/dL (32-36); Mean Corpuscular Hgb 28.6 pg (27.0-32.0); Mean Corpuscular Volume 91.9 fL (80-94); Monocyte# 0.99 X10^3/uL; Monocyte% 12.9 % (0-10); NRBC Flagged by Analyzer 0 % (0-5); Neutrophil # 4.31 X10^3/uL (2.7-7.7); Neutrophil % 55.9 % (47-70); Platelet Count 162 K/mm3 (150-450); RBC Distribution Width CV 13.5 % (11.6-14.6); RBC Distribution Width SD 46.4 fl (35.1-43.9); Red Blood Count 4.06 M/mm3 (4.6-6.2); White Blood Count 7.7 K/mm3 (4.4-11.0)
[2020-06-01] MEDS: Ipratropium/Albuterol Sulfate 3 ML AMPUL.NEB INHALATION (06:46)
[2020-06-01 06:54] LABS: AST(SGOT) 18 U/L (15-37); Alanine Aminotransfer ALT/SGPT 15 U/L (16-61); Albumin, Serum 2.9 g/dL (3.2-5.0); Alkaline Phosphatase 66 U/L (45-117); Anion Gap 11 (5-15); BUN 21 mg/dL (7-18); BUN/Creat Ratio 19.6 RATIO (10-20); Calcium,Total 8.4 mg/dL (8.5-10.1); Chloride 97 mmol/L (98-107); Creatinine, Serum 1.07 mg/dL (0.70-1.30); EST Glomerular Filtration Rate 73 mL/min (>60); Est Glom Filt Rate - Afr Amer 89 mL/min (>60); Estimated Creatinine Clearance 83.37 ml/min; Glucose 368 mg/dL (74-106); Potassium 4.3 mmol/L (3.5-5.1); Protein, Total 5.9 g/dL (6.4-8.2); Sodium Level 132 mmol/L (136-145)
[2020-06-01 07:00] LABS: Bedside Glucose 260 mg/dL (70-110)
[2020-06-01] MEDS: Insulin Lispro 100 UNIT/ML INSULN.PEN 74 UNIT SC ×2 (08:36→16:03)
--- NOTE | 2020-06-01 08:39 | NURSING ---
wound photo: right medial great toe
[2020-06-01] MEDS: Glucerna Shake 120 ML LIQUID PO ×2 (08:43→12:17)
[2020-06-01] MEDS: hydrOXYzine PAM 25 MG Capsule 50 MG PO ×2 (09:22→22:46)
[2020-06-01] MEDS: Losartan Potassium 50 MG Tablet PO (09:23)
[2020-06-01] MEDS: Furosemide 40 MG Tablet PO (09:23)
[2020-06-01] MEDS: Carvedilol 6.25 MG Tablet PO ×2 (09:23→22:06)
[2020-06-01] MEDS: Ezetimibe 10 MG Tablet PO (09:24)
--- NOTE | 2020-06-01 09:38 | PCM.CONS.GEN ---
Problem List (1) Neuropathic ulcer of right foot with fat layer exposed Status: Acute (2) Diabetes mellitus type 2, controlled, with complications Status: Acute (3) Cellulitis of right foot Status: Acute (4) Psoriasis Status: Acute Reason for Consult Date of Consultation: 06/01/20 Reason for Consultation: Right foot ulcer and cellulitis History of Present Illness: The patient is a 64 year old M who presents for worsening right foot cellulitis. Patient has no significant medical history including diabetes with neuropathy and peripheral vascular disease and psoriasis. Patient failed a course of oral doxycycline. Patient relates that the pain in his right foot has extended up to his thigh. This is improved since being on IV antibiotics. Patient had wound to right foot which started after biopsy of suspicious skin lesion with nonhealing. Patient has history of PVD and is established with Dr. Peacock. Patient relates that he supposed to see him recently but failed to schedule appointment. Patient relates have been about a year or 2 since his last vascular studies. Patient relates that his chest pain and shortness of breath is improved since being in the hospital. Patient denies any current nausea fever vomiting chills chest pain shortness of breath. Patient relates that the right great toe looks and feels better today with significant decrease in pain. [] Past Medical History Past Medical History (Chronic Problems): Chronic Problems (Last Reviewed 05/31/20 @ 22:33 by FIDEL Sena) COPD (chronic obstructive pulmonary disease) (Chronic) Diabetic neuropathy associated with type 2 diabetes mellitus (Chronic) History of implantable cardiac defibrillator (ICD) (Chronic 02/07/18) 08/2007 implanted, Gen Change 01/2018 Atherosclerosis [place] coronary artery [place] heart without angina pectoris (Chronic) Old inferior wall myocardial infarction (Chronic 02/27/05) Ischemic cardiomyopathy (Chronic) Non-rheumatic aortic stenosis (Chronic) Secondary pulmonary arterial hypertension (Chronic) NSVT (nonsustained ventricular tachycardia) (Chronic) Essential (primary) hypertension (Chronic) Hyperlipidemia (Chronic) Claudication (Chronic) Medical History: Medical History (Last Reviewed 05/31/20 @ 22:33 by Gema Kowalski NP-C) Atherosclerosis [place] coronary artery [place] heart without angina pectoris (Chronic) I25.10 Old inferior wall myocardial infarction (Chronic) Onset Date: 02/27/05 I25.2 History of non-ST elevation myocardial infarction (NSTEMI) (Resolved) Onset Date: 10/11/13 I25.2 Ischemic cardiomyopathy (Chronic) I25.5 Non-rheumatic aortic stenosis (Chronic) I35.0 Secondary pulmonary arterial hypertension (Chronic) I27.21 NSVT (nonsustained ventricular tachycardia) (Chronic) I47.2 Essential (primary) hypertension (Chronic) I10 Hyperlipidemia (Chronic) E78.5 Claudication (Chronic) I73.9 COPD (chronic obstructive pulmonary disease) J44.9 Chronic kidney disease N18.9 DVT (deep venous thrombosis) I82.409 IBS (irritable bowel syndrome) K58.9 Obesity E66.9 Type 2 diabetes mellitus E11.9 Pulmonary embolism Onset Date: 09/2013 I26.99 2007, 2013 Allergies vancomycin Adverse Reaction (Verified 06/01/20 05:22) Rash Home Medications: Ambulatory Orders Medication Instructions Recorded Atorvastatin Calcium [Lipitor] 80 mg PO DAILY 10/05/13 Nitroglycerin (INPATIENT USE) 0.4 mg SUBLINGUAL Q5M PRN #25 tab 10/14/13 [Nitrostat] Albuterol Sulfate [Proventil Hfa] 6.7 gm IH Q4H PRN PRN 07/22/16 hydroxyzine HCl 50 mg tablet 50 mg PO QHS tab 03/14/17 ezetimibe 10 mg tablet 10 mg PO DAILY 07/10/17 losartan 50 mg tablet 50 mg PO DAILY 02/01/18 rivaroxaban 15 mg tablet 20 mg PO DAILY tab 02/25/20 trazodone 50 mg tablet 50 mg PO QHS tab 02/25/20 Carvedilol [Coreg (Beta Tin)] 6.25 mg PO BID 05/31/20 Furosemide [Lasix] 40 mg PO DAILY 05/31/20 Insulin Aspart [Novolog Flexpen See Protocol SC TIDCM 05/31/20 ([facility])] Insulin Aspart [Novolog Vial] 80 units SQ BID 05/31/20 Levemir 80 unit SQ BID 05/31/20 Levocetirizine Dihydrochloride 5 mg PO QHS 05/31/20 Oxycodone HCl/Acetaminophen 1 tablet PO Q4H PRN 05/31/20 [Percocet 5/325] Umeclidinium Brm/Vilanterol Tr 1 puff PO DAILY 05/31/20 [Anoro Ellipta 62.5-25 Mcg INH] Victoza 1.8 mg SQ DAILY 05/31/20 Surgical History: Surgical History (Last Reviewed 05/31/20 @ 22:33 by Gema Kowalski NP-Windy) History of implantable cardiac defibrillator (ICD) (Chronic) Onset Date: 02/07/1808/2007 implanted, Gen Change 01/2018 History of coronary artery stent placement (Resolved) Onset Date: 02/27/05 Z95.5 PCI-BMS-OM1 w/ 3.0 x 12 mm, 3.0 x 16 mm and 3.5 x 12 mm Elma Stents 02/27/[address] [facility] 2007 and 2013 H/O coronary artery bypass surgery (Resolved) Onset Date: 04/18/99 Z95.1 CABG x 2: MENDOZA-LAD, RAD-RCA 04/18/1999 Hx of cataract extraction Z98.49 History of left heart catheterization Onset Date: 10/13/13 Z98.890 1999, 02/2005, 03/14/2007, 10/13/13 Surgical History: coronary bypass surgery, pacemaker implantation Psychiatric History: No pertinent psych hx Lives: Alone Smoking Status: Former smoker Tobacco Use: Cigarettes Alcohol: None Drugs: None - *Family History Maternal Family History: Family History (Last Reviewed 02/25/20 @ 15:18 by Harish Carreno NP, NEUROLOGIST-C) Father CAD (coronary artery disease) Diabetes Brother CAD (coronary artery disease) Diabetes Mother Cancer Brother Diabetes History Items: No pertinent history Review of Systems Constitutional: Denies: Chills, Fever, Weakness HEENT: Denies: Difficulty Hearing, Hard of Hearing Cardiovascular: Denies: Chest Pain, Edema Respiratory: Denies: Cough, Shortness of Breath Gastrointestinal: Denies: Nausea, Vomiting Musculoskeletal: Denies: Foot Pain Skin: Reports: Lesions - Psoriasis, Wounds Neurological: Reports: Numbness, Tingling Hematologic/ Lymphatic: Reports: Easy Bleeding, Hx of blood clot Patient Problems: Active and Suspected Problems (Last Reviewed 05/31/20 @ 22:33 by Gema Kowalski, NEUROLOGIST-C) Diabetes mellitus type 2, controlled, with complications (Acute) Cellulitis of right foot (Acute) Neuropathic ulcer of right foot with fat layer exposed (Acute) Psoriasis (Acute) Subjective: Patient seen and examined resting comfortably. Patient denies any new pedal complaints. Patient denies any nausea, fever, chills, chest pain, shortness of breath, cough, streaking, purulence, vomiting. Relates that the pain in his right foot is significantly improved - Physical Exam Vitals/I&O's: Vital Signs Temp Pulse Resp BP Pulse Ox 98.5 F 73 18 136/74 H 97 06/01/20 08:26 06/01/20 08:26 06/01/20 08:26 06/01/20 08:26 06/01/20 08:26 Oxygen Delivery Method Room Air Weight: 119.2 kg Body Mass Index (BMI) 31.9 Intake and Output for Last 24 Hours 05/30/20 05/31/20 06/01/20 23:59 23:59 23:59 Intake Total 1466.67 / 1466.67 1042 / 1042 Balance 1466.67 / 1466.67 1042 / 1042 General: Alert, Oriented x3 HEENT: Atraumatic Extremities: No clubbing, No cyanosis, Capillary Refill Less than 3 Seconds, No Calf Tenderness - Negative Nathaly and Solorzano sign, Diminished Peripheral Pulses, Edema - Right first ray Skin: Ulcer/ Wound - No malodor or purulent drainage. There is surrounding erythema and edema to lower extremity. Does not probes to bone, skin is atrophic and hairless. Minimal serosanguineous drainage Musculoskeletal: Tenderness - Medial thigh Neurological: - - Absent epicritic sensation Psych/Mental Status: Normal Affect, Appropriate Laboratory Results 05/31/20 16:57: WBC 9.0, RBC 4.77, Hgb 13.9, Hct 43.4, MCV 91.0, MCH 29.1, MCHC 32.0, RDW Std Deviation 45.6 H, RDW Coeff of [place] 13.7, Plt Count 206, MPV 11.0, Immature Gran % (Auto) 0.400, Neut % (Auto) 67.5, Lymph % (Auto) 20.9, Shelby % (Auto) 9.8, Eos % (Auto) 1.0, Baso % (Auto) 0.4, Absolute Neuts (auto) 6.1, Absolute Lymphs (auto) 1.89, Nucleated RBC % 0, ESR 43 H 05/31/20 16:57: Sodium 133 L, Potassium 3.8, Chloride 98, Carbon Dioxide 29.0, Anion Gap 6, BUN 21 H, Creatinine 1.26, Estim Creat Clear Calc 70.80, Est GFR (MDRD) Af Amer 73, Est GFR (MDRD) Non-Af 61, BUN/Creatinine Ratio 16.7, Glucose 295 H, Calcium 9.4, C-React Prot Ext Range 22.40 H 05/31/20 16:57: Lactic Acid 3.1 H* 05/31/20 22:25: Lactic Acid 2.8 H* 05/31/20 22:40: POC Glucose 140 H 06/01/20 00:53: POC Glucose 282 H 06/01/20 06:08: WBC 7.7, RBC 4.06 L, Hgb 11.6 L, Hct 37.3 L, MCV 91.9, MCH 28.6, MCHC 31.1 L, RDW Std Deviation 46.4 H, RDW Coeff of Eula 13.5, Plt Count 162, MPV 11.0, Immature Gran % (Auto) 0.400, Neut % (Auto) 55.9, Lymph % (Auto) 29.0, Shelby % (Auto) 12.9 H, Eos % (Auto) 1.3, Baso % (Auto) 0.5, Absolute Neuts (auto) 4.3, Absolute Lymphs (auto) 2.23, Nucleated RBC % 0 06/01/20 06:08: Sodium 132 L, Potassium 4.3, Chloride 97 L, Carbon Dioxide 24.0, Anion Gap 11, BUN 21 H, Creatinine 1.07, Estim Creat Clear Calc 83.37, Est GFR (MDRD) Af Amer 89, Est GFR (MDRD) Non-Af 73, BUN/Creatinine Ratio 19.6, Glucose 368 H, Calcium 8.4 L, Total Bilirubin 0.70, AST 18, ALT 15 L, Alkaline Phosphatase 66, Total Protein 5.9 L, Albumin 2.9 L, Globulin 3.0, Albumin/Globulin Ratio 1.0 06/01/20 06:52: POC Glucose 260 H Current Medications Acetaminophen (Acetaminophen 325 Mg Tablet) 650 mg PO Q6H PRN PRN PRN Reason: Pain Score 1-10/Temp > 100.7 F Last Admin: 06/01/20 00:49 Dose: 650 mg Documented by: Albuterol/Ipratropium (Ipratropium/Albuterol Sulfate 3 Ml Ampul.Neb) 3 ml INHALATION Q6HWA.RT [facility] Last Admin: 06/01/20 06:46 Dose: 3 ml Documented by: Atorvastatin Calcium (Atorvastatin Calcium 80 Mg Tablet) 80 mg PO DAILY@2200 [place] Carvedilol (Carvedilol 6.25 Mg Tablet) 6.25 mg PO BID [facility] Last Admin: 06/01/20 09:23 Dose: 6.25 mg Documented by: Ezetimibe (Ezetimibe 10 Mg Tablet) 10 mg PO DAILY [facility] Last Admin: 06/01/20 09:24 Dose: 10 mg Documented by: Furosemide (Furosemide 40 Mg Tablet) 40 mg PO DAILY [facility] Last Admin: 06/01/20 09:23 Dose: 40 mg Documented by: Hydroxyzine Pamoate (Hydroxyzine Deb 25 Mg Capsule) 50 mg PO QHS [facility] Last Admin: 06/01/20 09:22 Dose: 50 mg Documented by: Clindamycin Phosphate 900 mg/ (Dextrose) 106 mls @ 150 mls/hr IV Q8 [facility] Last Infusion: 06/01/20 06:12 Dose: Infused Documented by: Piperacillin Sod/Tazobactam (Sod 3.375 gm/ Sodium Chloride) 50 mls @ 12.5 mls/hr IV Q8 [facility] Last Admin: 06/01/20 06:53 Dose: 12.5 mls/hr Documented by: Sodium Chloride () 250 mls @ 15 mls/hr IV .[id number] PRN PRN Reason: Saline Flush Insulin Glargine (Insulin Glargine 100 Units/Ml Pen) 80 units SC BID [facility] Insulin Human Lispro (Insulin Lispro 100 Unit/Ml Insuln.Pen) 0 unit SC ACHS [facility]; Protocol Last Admin: 06/01/20 08:40 Dose: Not Given Documented by: Insulin Human Lispro (Insulin Lispro 100 Unit/Ml Insuln.Pen) [facility] Last Admin: 06/01/20 08:36 Dose: 74 units Documented by: Loratadine (Loratadine 10 Mg Tablet) 5 mg PO QHS [facility] Losartan Potassium (Losartan Potassium 50 Mg Tablet) 50 mg PO DAILY [facility] Last Admin: 06/01/20 09:23 Dose: 50 mg Documented by: Melatonin (Melatonin 3 Mg Tablet) 3 mg PO QHS PRN PRN PRN Reason: INSOMNIA Nutritional Formula (Lactose Free) (Glucerna Shake 120 Ml Liquid) 120 ml PO TIDCM [place] Last Admin: 06/01/20 08:43 Dose: 120 ml Documented by: Ondansetron HCl (Ondansetron 4 Mg/2 Ml Vial) 4 mg IV Q8H PRN PRN PRN Reason: NAUSEA/VOMITING Oxycodone HCl (Oxycodone 5 Mg Tablet) 5 mg PO Q4H PRN PRN Reason: Pain Score 1-10 Last Admin: 06/01/20 00:49 Dose: 5 mg Documented by: Rivaroxaban (Rivaroxaban 20 Mg Tablet) 20 mg PO DAILY@1700 [facility] Sodium Chloride (0.9% Saline Lock 10 Ml Syringe) 10 - 40 ml IV UD PRN PRN Reason: SALINE FLUSH Last Admin: 06/01/20 00:43 Dose: 10 ml Documented by: Trazodone HCl (Trazodone 50 Mg Tablet) 50 mg PO QHS [facility] Assessment/Plan All Active Problems (Last Reviewed 05/31/20 @ 22:33 by Gema Kowalski, NEUROLOGIST-C) Diabetes mellitus type 2, controlled, with complications (Acute) Cellulitis of right foot (Acute) Neuropathic ulcer of right foot with fat layer exposed (Acute) Psoriasis (Acute) History of coronary artery stent placement (Resolved 02/27/05) H/O coronary artery bypass surgery (Resolved 04/18/99) History of non-ST elevation myocardial infarction (NSTEMI) (Resolved 10/11/13) Right hallux ulcer to subcu Right hallux and foot cellulitis Diabetes with neuropathy Peripheral vascular disease Patient seen and examined Improvement noted to right foot wound and erythema since being on IV antibiotics Follow wound and blood cultures Continue antibiotics X-ray reviewed without signs of emphysema or osteomyelitis. There is chronic fracture the fifth metatarsal that is been present for years. Reviewed lab work with white blood cell count of 7.7, ESR 43, CRP of 22.4, lactic acid 2.8 MRI and new vascular studies were ordered Venous Doppler reviewed showing no DVT Continue wound care daily. Wound care nurse consulted. Reviewed case with her. Heel weightbearing to right lower extremity No current surgical podiatry plans at this time. Podiatry will continue to follow. Thank you for the consult. Charmaine Gutierrez DPM [facility] [phone]
--- NOTE | 2020-06-01 09:39 | MRI_ITS ---
STUDY: MRI RIGHT FOREFOOT WITHOUT CONTRAST REASON FOR EXAM: Male, 64 years old. hallux ulcer possible OM TECHNIQUE: Standardized fat and water weighted pulse sequences were obtained in all 3 orthogonal planes. COMPARISON: X-ray 05/31/2020 FINDINGS: Normal metatarsophalangeal joint of the hallux. Normal tibial and fibular sesamoids, with normal sesamoids-first metatarsal articulations. Normal interphalangeal joint of the hallux. Skin thickening and edema of the subcutaneous fat of the medial aspect of the first digit consistent with cellulitis. No likely a fluid collection to suggest abscess. Partial destruction of the medial and dorsal cortex of the base of the first distal phalanx consistent with osteomyelitis. Normal medial and lateral heads of the flexor hallucis brevis tendons. Normal flexor and extensor hallucis longus tendons. Normal second through fifth metatarsophalangeal (MTP) joints. Normal interphalangeal joints of the second through fifth toes. Normal proximal, middle and distal phalanges of the second through fifth toes. Normal first through fourth intermetatarsal spaces. Normal flexor and extensor tendons of the second through fifth toes. Normal visualized metatarsi. Normal intrinsic muscles of the forefoot. There is no demonstrated soft tissue abnormality. MRI/Lower Ext/No Jt/w/o IMPRESSION: Cellulitis the medial first digit with osteomyelitis of the dorsal and medial aspect of the base of the first distal phalanx. Electronically Signed: Jessee Rob MD at 15:34 EDT Tel , Service support ,
--- NOTE | 2020-06-01 09:42 | ART_ITS ---
Reason For Study: PVD Procedure A bilateral lower extremity continuous wave Doppler with analog waveform analysis,segmental pressures,and ankle brachial indexes without exercise. Left Segmental Pressures Left brachial= 147mmHg. Left posterior tibial artery = 150mmHg. Left dorsalis pedis artery = 94mmHg. The left dorsalis pedis waveforms are biphasic. The left posterior tibial artery waveforms are biphasic. Right Segmental Pressures Right brachial= 144mmHg. Right posterior tibial artery = >254mmHg. Right dorsalis pedis artery = 98mmHg. The right dorsalis pedis waveforms are monophasic. The right posterior tibial artery waveforms are monophasic. Indices The right ankle brachial index by the dorsalis pedis is 0.67. The right ankle brachial index by the posterior tibial artery is NC. The left ankle brachial index by the dorsalis pedis is 0.64. The left ankle brachial index by the posterior tibial artery is 1.02. VL/Lower Ext Art Exam w/o Exercis Interpretation Summary Right leg with moderate occlusive disease with OTTO 0.67 and monophasic flow. Le ft normal at 1.02. Ordering Physician: Charmaine Gutierrez Referring Physician: Bulmaro Garcia MD Performed By: Haily Farris RVT and Student
[2020-06-01] MEDS: Rivaroxaban 20 MG Tablet PO (11:11)
[2020-06-01 11:31] LABS: Bedside Glucose 379 mg/dL (70-110)
--- NOTE | 2020-06-01 11:35 | CASEMGMT ---
TIA ESCOBAR Assessment: Face to Face with pt for initial transition planning/care coordination assessment. TIA ESCOBAR introduced self and role at [facility], pt voices understanding and consents to assessment. Pt is A/O x4 and answers all questions appropriately at this time. Pt sitting up in chair in no distress. Care providers, pharmacy, and demographics verified/updated. Admitting Dx: Cellulitis, failed oupt tx PCP: Jose Specialists: Kayla, cardio; Shantanu, general laborer; Ayush, vascular [facility]erred [email or web address] [employer] [facility] Prescription Benefit: yes LW/HPOA: Pt denies having a LW/HPOA. LNOK: Renate Ackerman, friend Living Arrangements: Pt lives with friend Renate in a mobile home with 2 steps with a rail. Pt reports being I in ADL's and denies concerns at home. Transportation: Pt states he drives and has no concerns regarding transportation. DME/HHC/SNF: Pt has a walker and crutches at home. He does not use currently. Pt denies having previous HHC or SNF stays. Pt states no concerns with going home at time of dc. Pt states no further concerns/needs. CM to follow for safe dc. Advised pt to ask CM if any further question/concerns/needs arise, voices understanding. Pt Goal: Home Plan: Home with friend support.
[2020-06-01] MEDS: Insulin Lispro 100 UNIT/ML INSULN.PEN SC ×3 (12:10→22:07)
--- NOTE | 2020-06-01 13:37 | PCM.PN.HOSP ---
Patient Problems: Active and Suspected Problems (Last Reviewed 05/31/20 @ 22:33 by Gema Kowalski NP-C) Diabetes mellitus type 2, controlled, with complications (Acute) Cellulitis of right foot (Acute) Neuropathic ulcer of right foot with fat layer exposed (Acute) Psoriasis (Acute) Reason for Visit: Follow-up for foot infection status post failed outpatient therapy Subjective: Patient was seen and examined. He had an episode of anxiety attack this morning. Did not receive his Vistaril last night. He denied any new complaints at time of being seen. Objective: Physical exam: General: Alert, Oriented x3, Cooperative, No apparent distress, Well developed HEENT: Atraumatic Oral: Moist Mucosa Neck: Supple Lungs: Clear to auscultation Cardiovascular: HS I+II, regular, no murmurs Abdomen: Bowel Sounds Present, Soft, Non Tender Extremities: No edema Skin: No rashes, No breakdown Neurological: Grossly intact Psych/Mental Status: Appropriate Vitals/I&O's: Vital Signs Temp Pulse Resp BP Pulse Ox 98.0 F 75 16 134/76 H 96 06/01/20 13:03 06/01/20 13:03 06/01/20 13:03 06/01/20 13:03 06/01/20 13:03 Oxygen Delivery Method Room Air Weight: 119.2 kg Body Mass Index (BMI) 31.9 Intake and Output for Last 24 Hours 05/30/20 05/31/20 06/01/20 23:59 23:59 23:59 Intake Total 1466.67 / 1466.67 1492 / 1492 Balance 1466.67 / 1466.67 1492 / 1492 Microbiology Past 72 Hours 05/31/20 19:26 Wound - Right Foot Gram Stain - Final 05/31/20 19:26 Wound - Right Foot Wound Culture - Preliminary Gram negative leilani Gram Positive Cocci Laboratory Results 05/31/20 16:57: WBC 9.0, RBC 4.77, Hgb 13.9, Hct 43.4, MCV 91.0, MCH 29.1, MCHC 32.0, RDW Std Deviation 45.6 H, RDW Coeff of [place] 13.7, Plt Count 206, MPV 11.0, Immature Gran % (Auto) 0.400, Neut % (Auto) 67.5, Lymph % (Auto) 20.9, [place] % (Auto) 9.8, Eos % (Auto) 1.0, Baso % (Auto) 0.4, Absolute Neuts (auto) 6.1, Absolute Lymphs (auto) 1.89, Nucleated RBC % 0, ESR 43 H 05/31/20 16:57: Sodium 133 L, Potassium 3.8, Chloride 98, Carbon Dioxide 29.0, Anion Gap 6, BUN 21 H, Creatinine 1.26, Estim Creat Clear Calc 70.80, Est GFR (MDRD) Af Amer 73, Est GFR (MDRD) Non-Af 61, BUN/Creatinine Ratio 16.7, Glucose 295 H, Calcium 9.4, C-React Prot Ext Range 22.40 H 05/31/20 16:57: Lactic Acid 3.1 H* 05/31/20 22:25: Lactic Acid 2.8 H* 05/31/20 22:40: POC Glucose 140 H 06/01/20 00:53: POC Glucose 282 H 06/01/20 06:08: WBC 7.7, RBC 4.06 L, Hgb 11.6 L, Hct 37.3 L, MCV 91.9, MCH 28.6, MCHC 31.1 L, RDW Std Deviation 46.4 H, RDW Coeff of [place] 13.5, Plt Count 162, MPV 11.0, Immature Gran % (Auto) 0.400, Neut % (Auto) 55.9, Lymph % (Auto) 29.0, [place] % (Auto) 12.9 H, Eos % (Auto) 1.3, Baso % (Auto) 0.5, Absolute Neuts (auto) 4.3, Absolute Lymphs (auto) 2.23, Nucleated RBC % 0 06/01/20 06:08: Sodium 132 L, Potassium 4.3, Chloride 97 L, Carbon Dioxide 24.0, Anion Gap 11, BUN 21 H, Creatinine 1.07, Estim Creat Clear Calc 83.37, Est GFR (MDRD) Af Amer 89, Est GFR (MDRD) Non-Af 73, BUN/Creatinine Ratio 19.6, Glucose 368 H, Calcium 8.4 L, Total Bilirubin 0.70, AST 18, ALT 15 L, Alkaline Phosphatase 66, Total Protein 5.9 L, Albumin 2.9 L, Globulin 3.0, Albumin/Globulin Ratio 1.0 06/01/20 06:52: POC Glucose 260 H 06/01/20 11:20: POC Glucose 379 H Current Medications Acetaminophen (Acetaminophen 325 Mg Tablet) 650 mg PO Q6H PRN PRN PRN Reason: Pain Score 1-10/Temp > 100.7 F Last Admin: 06/01/20 11:15 Dose: 650 mg Documented by: Atorvastatin Calcium (Atorvastatin Calcium 80 Mg Tablet) 80 mg PO DAILY@2200 [facility] Carvedilol (Carvedilol 6.25 Mg Tablet) 6.25 mg PO BID [facility] Last Admin: 06/01/20 09:23 Dose: 6.25 mg Documented by: Ezetimibe (Ezetimibe 10 Mg Tablet) 10 mg PO DAILY [facility] Last Admin: 06/01/20 09:24 Dose: 10 mg Documented by: Furosemide (Furosemide 40 Mg Tablet) 40 mg PO DAILY [facility] Last Admin: 06/01/20 09:23 Dose: 40 mg Documented by: Hydroxyzine Pamoate (Hydroxyzine Deb 25 Mg Capsule) 50 mg PO QHS [facility] Last Admin: 06/01/20 09:22 Dose: 50 mg Documented by: Clindamycin Phosphate 900 mg/ (Dextrose) 106 mls @ 150 mls/hr IV Q8 [facility] Last Admin: 06/01/20 12:56 Dose: 150 mls/hr Documented by: Piperacillin Sod/Tazobactam (Sod 3.375 gm/ Sodium Chloride) 50 mls @ 12.5 mls/hr IV Q8 [facility] Last Infusion: 06/01/20 10:58 Dose: Infused Documented by: Sodium Chloride () 250 mls @ 15 mls/hr IV .[id number] PRN PRN Reason: Saline Flush Insulin Glargine (Insulin Glargine 100 Units/Ml Pen) 80 units SC BID [facility] Last Admin: 06/01/20 11:20 Dose: 80 units Documented by: Insulin Human Lispro (Insulin Lispro 100 Unit/Ml Insuln.Pen) 0 unit SC ACHS [facility]; Protocol Last Admin: 06/01/20 12:10 Dose: 14 units Documented by: Insulin Human Lispro (Insulin Lispro 100 Unit/Ml [facility]uln.Pen) [facility] Last Admin: 06/01/20 08:36 Dose: 74 units Documented by: Ipratropium [place] (Ipratropium 0.5 Mg/2.5 Ml Solution) 0.5 mg INHALATION Q4H.RT PRN PRN Reason: SOB &/OR WHEEZING Loratadine (Loratadine 10 Mg Tablet) 5 mg PO QHS [facility] Losartan Potassium (Losartan Potassium 50 Mg Tablet) 50 mg PO DAILY [facility] Last Admin: 06/01/20 09:23 Dose: 50 mg Documented by: Melatonin (Melatonin 3 Mg Tablet) 3 mg PO QHS PRN PRN PRN Reason: INSOMNIA Nutritional Formula (Lactose Free) (Glucerna Shake 120 Ml Liquid) 120 ml PO TIDCM [facility] Last Admin: 06/01/20 12:17 Dose: 120 ml Documented by: Ondansetron HCl (Ondansetron 4 Mg/2 Ml Vial) 4 mg IV Q8H PRN PRN PRN Reason: NAUSEA/VOMITING Oxycodone HCl (Oxycodone 5 Mg Tablet) 5 mg PO Q4H PRN PRN Reason: Pain Score 1-10 Last Admin: 06/01/20 11:15 Dose: 5 mg Documented by: Rivaroxaban (Rivaroxaban 20 Mg Tablet) 20 mg PO DAILY [facility] Last Admin: 06/01/20 11:11 Dose: 20 mg Documented by: Sodium Chloride (0.9% Saline Lock 10 Ml Syringe) 10 - 40 ml IV UD PRN PRN Reason: SALINE FLUSH Last Admin: 06/01/20 00:43 Dose: 10 ml Documented by: Trazodone HCl (Trazodone 50 Mg Tablet) 50 mg PO QHS [facility] [place] Vital Signs/Narrative: Vital Signs Temp Pulse Resp BP Pulse Ox 06/01/20 13:03 98.0 F 75 16 134/76 H 96 Medical Necessity - Tobacco Use Smoking Status: Former smoker Tobacco Use: Cigarettes Assessment/Plan All Active Problems (Last Reviewed 05/31/20 @ 22:33 by FIDEL Sena) Diabetes mellitus type 2, controlled, with complications (Acute) Cellulitis of right foot (Acute) Neuropathic ulcer of right foot with fat layer exposed (Acute) Psoriasis (Acute) History of coronary artery stent placement (Resolved 02/27/05) H/O coronary artery bypass surgery (Resolved 04/18/99) History of non-ST elevation myocardial infarction (NSTEMI) (Resolved 10/11/13) 1. Acute Cellulitis/infected ulcer right foot, improving, wound cultures growing gram-negative and positive organisms MRI pending, podiatry following, continue on clindamycin and Zosyn 2. Acute fracture of the proximal fifth metatarsal, podiatry consulted, pain fairly controlled 3. Elevated lactic acid, unclear etiology, no signs of sepsis, improved 4. Type 2 DM complicated with diabetic neuropathy, sugars are fairly uncontrolled, continue on home Lantus and scheduled lispro 3. Hypertension/Hyperlipidemia/ s/p ICD/CAD s/p stent/CABG, stable, continue on statin, carvedilol, Zetia, Lasix, losartan 4. H/o DVT, continue on Xarelto 5. DVT prophylaxis-on Xarelto Inpatient E&M: 30008 Subs Hosp L2
[2020-06-01 16:10] LABS: Bedside Glucose 403 mg/dL (70-110)
[2020-06-01 17:30] LABS: Bedside Glucose 322 mg/dL (70-110)
[2020-06-01] MEDS: Atorvastatin Calcium 80 MG Tablet PO (22:05)
[2020-06-01] MEDS: traZODone 50 MG Tablet PO (22:05)
[2020-06-01] MEDS: Loratadine 10 MG Tablet 5 MG PO (22:05)
[2020-06-01 22:55] LABS: Bedside Glucose 241 mg/dL (70-110)
[2020-06-02 03:25] VITALS: BP 115/41; PULSE 72; RESP 18; TEMP 36.8; O2SAT 98
[2020-06-02] MEDS: oxyCODONE 5 MG Tablet PO ×3 (07:37→22:32)
[2020-06-02] MEDS: Ezetimibe 10 MG Tablet PO (07:38)
[2020-06-02] MEDS: Carvedilol 6.25 MG Tablet PO ×2 (07:38→22:48)
[2020-06-02] MEDS: Losartan Potassium 50 MG Tablet PO (07:38)
[2020-06-02] MEDS: Furosemide 40 MG Tablet PO (07:38)
[2020-06-02] MEDS: Rivaroxaban 20 MG Tablet PO (07:39)
[2020-06-02 07:41] LABS: Bedside Glucose 218 mg/dL (70-110)
[2020-06-02 08:02] VITALS: O2SAT 92
[2020-06-02 08:13] VITALS: BP 126/59; PULSE 75; RESP 16; TEMP 36.6; O2SAT 98
--- NOTE | 2020-06-02 08:45 | PN_ITS ---
Patient Problems: Active and Suspected Problems (Last Reviewed 05/31/20 @ 22:33 by Gema Kowalski NP-C) Diabetes mellitus type 2, controlled, with complications (Acute) Cellulitis of right foot (Acute) Neuropathic ulcer of right foot with fat layer exposed (Acute) Psoriasis (Acute) Subjective: Patient seen and examined resting comfortably. Patient denies any new pedal complaints. Patient denies any nausea, fever, chills, chest pain, shortness of breath, cough, streaking, purulence, vomiting. Patient still complaining of pain to the back of his thighs. Patient has no pain to his foot. He relates his shortness of breath has resolved. Patient relates that he did not sleep well - Physical Exam Vitals/I&O's: Vital Signs Temp Pulse Resp BP Pulse Ox 98 F 75 16 126/59 H 98 06/02/20 08:13 06/02/20 08:13 06/02/20 08:13 06/02/20 08:13 06/02/20 08:13 Oxygen Delivery Method Room Air Weight: 119.2 kg Body Mass Index (BMI) 31.9 Intake and Output for Last 24 Hours 05/31/20 06/01/20 06/02/20 23:59 23:59 23:59 Intake Total 1466.67 / 1466.67 2204 / 2204 106 / 106 Output Total 400 / 400 Balance 1466.67 / 1466.67 1804 / 1804 106 / 106 General: Alert, Oriented x3 HEENT: Atraumatic Extremities: No cyanosis, No edema, Capillary Refill Less than 3 Seconds, No Calf Tenderness - There is some remaining bilateral tenderness behind the knee, Diminished Peripheral Pulses - Bilateral DP and PT Skin: Ulcer/ Wound - Right medial hallux ulceration. Wound is stable with no overall change noted. Fibrotic wound with some eschar noted. Wound is dry. Does not probe to bone. Surrounding erythema and edema improved. No purulence. No malodor., - - Chronic psoriasis bilateral lower extremities changes Musculoskeletal: Tenderness - Behind upper knee into the thigh bilateral Neurological: - - Absent epicritic sensation consistent with patient's neuropathy Psych/Mental Status: Normal Affect, Appropriate Microbiology Past 72 Hours 05/31/20 19:26 Wound - Right Foot Gram Stain - Final 05/31/20 19:26 Wound - Right Foot Wound Culture - Preliminary Escherichia coli Gram Positive Cocci Laboratory Results 06/01/20 11:20: POC Glucose 379 H 06/01/20 16:01: POC Glucose 403 H 06/01/20 17:23: POC Glucose 322 H 06/01/20 22:02: POC Glucose 241 H 06/02/20 07:25: S.aureus Protein A PCR Pending, MRSA (PCR) Pending 06/02/20 07:31: POC Glucose 218 H Current Medications Acetaminophen (Acetaminophen 325 Mg Tablet) 650 mg PO Q6H PRN PRN PRN Reason: Pain Score 1-10/Temp > 100.7 F Last Admin: 06/01/20 11:15 Dose: 650 mg Documented by: Atorvastatin Calcium (Atorvastatin Calcium 80 Mg Tablet) 80 mg PO DAILY@2200 [facility] Last Admin: 06/01/20 22:05 Dose: 80 mg Documented by: Carvedilol (Carvedilol 6.25 Mg Tablet) 6.25 mg PO BID [facility] Last Admin: 06/02/20 07:38 Dose: 6.25 mg Documented by: Collagenase (Collagenase 30gm Tube) 1 applic TOPICAL DAILY [facility]; Protocol Ezetimibe (Ezetimibe 10 Mg Tablet) 10 mg PO DAILY [facility] Last Admin: 06/02/20 07:38 Dose: 10 mg Documented by: Furosemide (Furosemide 40 Mg Tablet) 40 mg PO DAILY [facility] Last Admin: 06/02/20 07:38 Dose: 40 mg Documented by: Hydroxyzine Pamoate (Hydroxyzine Deb 25 Mg Capsule) 50 mg PO QHS [facility] Last Admin: 06/01/20 09:22 Dose: 50 mg Documented by: Clindamycin Phosphate 900 mg/ (Dextrose) 106 mls @ 150 mls/hr IV Q8 [facility] Last Infusion: 06/02/20 07:35 Dose: Infused Documented by: Piperacillin Sod/Tazobactam (Sod 3.375 gm/ Sodium Chloride) 50 mls @ 12.5 mls/hr IV Q8 [facility] Last Admin: 06/02/20 06:33 Dose: 12.5 mls/hr Documented by: Sodium Chloride () 250 mls @ 15 mls/hr IV .[id number] PRN PRN Reason: Saline Flush Insulin Glargine (Insulin Glargine 100 Units/Ml Pen) 84 units SC BID [facility] Insulin Human Lispro (Insulin Lispro 100 Unit/Ml Insuln.Pen) 0 unit SC ACHS [facility]; Protocol Last Admin: 06/01/20 22:07 Dose: 6 units Documented by: Insulin Human Lispro (Insulin Lispro 100 Unit/Ml Insuln.Pen) 74 unit SC BIDCM [facility] Last Admin: 06/01/20 16:03 Dose: 74 units Documented by: Ipratropium [place] (Ipratropium 0.5 Mg/2.5 Ml Solution) 0.5 mg INHALATION Q4H.RT PRN PRN Reason: SOB &/OR WHEEZING Loratadine (Loratadine 10 Mg Tablet) 5 mg PO QHS [facility] Last Admin: 06/01/20 22:05 Dose: 5 mg Documented by: Losartan Potassium (Losartan Potassium 50 Mg Tablet) 50 mg PO DAILY [facility] Last Admin: 06/02/20 07:38 Dose: 50 mg Documented by: Melatonin (Melatonin 3 Mg Tablet) 3 mg PO QHS PRN PRN PRN Reason: INSOMNIA Ondansetron HCl (Ondansetron 4 Mg/2 Ml Vial) 4 mg IV Q8H PRN PRN PRN Reason: NAUSEA/VOMITING Oxycodone HCl (Oxycodone 5 Mg Tablet) 5 mg PO Q4H PRN PRN Reason: Pain Score 1-10 Last Admin: 06/02/20 07:37 Dose: 5 mg Documented by: Rivaroxaban (Rivaroxaban 20 Mg Tablet) 20 mg PO DAILY [facility] Last Admin: 06/02/20 07:39 Dose: 20 mg Documented by: Sodium Chloride (0.9% Saline Lock 10 Ml Syringe) 10 - 40 ml IV UD PRN PRN Reason: SALINE FLUSH Last Admin: 06/01/20 14:59 Dose: 20 ml Documented by: Trazodone HCl (Trazodone 50 Mg Tablet) 50 mg PO QHS [facility] Last Admin: 06/01/20 22:05 Dose: 50 mg Documented by: Medical Necessity - Tobacco Use Smoking Status: Former smoker Tobacco Use: Cigarettes Assessment/Plan All Active Problems (Last Reviewed 05/31/20 @ 22:33 by Gema Kowalski NP-C) Osteomyelitis (Acute) Diabetes mellitus type 2, controlled, with complications (Acute) Cellulitis of right foot (Acute) Neuropathic ulcer of right foot with fat layer exposed (Acute) Psoriasis (Acute) History of coronary artery stent placement (Resolved 02/27/05) H/O coronary artery bypass surgery (Resolved 04/18/99) History of non-ST elevation myocardial infarction (NSTEMI) (Resolved 10/11/13) Right hallux ulcer to subcu Right hallux and foot cellulitis Diabetes with neuropathy Peripheral vascular disease Patient seen and examined Wound noted to be stable with some improvement and erythema noted Follow wound and blood cultures. Wound cultures growing e. coli and gram pos cocci Continue antibiotics. Follow ID recommendations X-ray reviewed without signs of emphysema or osteomyelitis. There is chronic fracture the fifth metatarsal that is been present for years. MRI reviewed showing acute osteomyelitis changes to the hallux right foot. LEAS reviewed showing peripheral vascular disease. Vascular surgery consulted would appreciate their input and recommendations. Reviewed lab work with white blood cell count of ESR 43, CRP of 22.4, lactic acid 2.8 Venous Doppler reviewed showing no DVT Continue wound care daily. Wound care nurse consulted. Reviewed case with her. To start Santyl daily dressing changes. Heel weightbearing to right lower extremity Discussed with the patient at length various treatment options. Given his acute osteo and his wish to save the toe is reasonable to attempt antibiotic therapy. Discussed with the patient other options including surgical debridement or amputation as well. Patient would like to try to save the toe. Discussed the patient that due to his poor vascular status he may have some issues healing the wound. Discussed getting vascular surgery involved to see if there is any intervention that might be possible to improve his blood flow. Discussed all pros and cons of all options. Discussed the risk benefits alternatives and complications of all of them. We will proceed with nonsurgical antibiotic treatment at this time with wound care. We will continue to monitor closely. No current surgical podiatry plans at this time. Podiatry will continue to follow. Charmaine Gutierrez DPM [facility] [phone]
[2020-06-02] MEDS: Collagenase 30gm Tube 1 APPLIC TOPICAL (08:46)
[2020-06-02] MEDS: Insulin Lispro 100 UNIT/ML INSULN.PEN SC ×4 (09:15→22:48)
[2020-06-02] MEDS: Insulin Lispro 100 UNIT/ML INSULN.PEN 74 UNIT SC ×2 (09:15→17:21)
[2020-06-02 11:27] VITALS: BP 121/52; PULSE 77; RESP 16; TEMP 37; O2SAT 94
[2020-06-02 11:30] LABS: Bedside Glucose 264 mg/dL (70-110)
[2020-06-02 11:57] LABS: M R Staph aureus DNA By PCR Negative (Negative); Probe Check PASS; Specimen Processing Control PASS; Staph aureus DNA By PCR POSITIVE (Negative)
--- NOTE | 2020-06-02 12:09 | CON.PCM_ITS ---
Problem List (1) PAD (peripheral artery disease) Status: Acute Reason for Consult Date of Consultation: 06/02/20 Reason for Consultation: PAD History of Present Illness: The patient is a 64 year old M that had area right great toe nonhealing. Had biopsy of the bone and had worsening infection in this area. Appears to have infection into the joint of the right great toe. Has some known underlying PAD. Previously been seen in the past by myself with some iliofemoral disease but it had been stable. Last time we saw was 2017. He had some vascular studies while he was here that showed noncompressibility of the posterior tibial on the right with an OTTO 1.02 on the left. The DP was 0.67 on the right 0.64 on the left. But with monophasic flow both vessels at the ankle on the right with biphasic on the left. Currently is getting antibiotics and is overall doing better. [] Past Medical History Past Medical History (Chronic Problems): Chronic Problems (Last Reviewed 06/02/20 @ 12:[address] 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) History of implantable cardiac defibrillator (ICD) (Chronic 02/07/18) 08/2007 implanted, Gen Change 01/2018 Atherosclerosis of [place] coronary artery of [place] heart without angina pectoris (Chronic) Old inferior wall myocardial infarction (Chronic 02/27/05) Ischemic cardiomyopathy (Chronic) Non-rheumatic aortic stenosis (Chronic) Secondary pulmonary arterial hypertension (Chronic) NSVT (nonsustained ventricular tachycardia) (Chronic) Essential (primary) hypertension (Chronic) Hyperlipidemia (Chronic) Claudication (Chronic) Medical History: Medical History (Last Reviewed 06/02/20 @ 12:[address] Eloy Peacock MD) Atherosclerosis of [place] coronary artery of [place] heart without angina pectoris (Chronic) I25.10 Old inferior wall myocardial infarction (Chronic) Onset Date: 02/27/05 I25.2 History of non-ST elevation myocardial infarction (NSTEMI) (Resolved) Onset Date: 10/11/13 I25.2 Ischemic cardiomyopathy (Chronic) I25.5 Non-rheumatic aortic stenosis (Chronic) I35.0 Secondary pulmonary arterial hypertension (Chronic) I27.21 NSVT (nonsustained ventricular tachycardia) (Chronic) I47.2 Essential (primary) hypertension (Chronic) I10 Hyperlipidemia (Chronic) E78.5 Claudication (Chronic) I73.9 COPD (chronic obstructive pulmonary disease) J44.9 Chronic kidney disease N18.9 DVT (deep venous thrombosis) I82.409 IBS (irritable bowel syndrome) K58.9 Obesity E66.9 Type 2 diabetes mellitus E11.9 Pulmonary embolism Onset Date: 09/2013 I26.99 2007, 2013 Allergies vancomycin Adverse Reaction (Verified 06/01/20 05:22) Rash Home Medications: Ambulatory Orders Medication Instructions Recorded Atorvastatin Calcium [Lipitor] 80 mg PO DAILY 10/05/13 Nitroglycerin (INPATIENT USE) 0.4 mg SUBLINGUAL Q5M PRN #25 tab 10/14/13 [Nitrostat] Albuterol Sulfate [Proventil Hfa] 6.7 gm IH Q4H PRN PRN 07/22/16 hydroxyzine HCl 50 mg tablet 50 mg PO QHS tab 03/14/17 ezetimibe 10 mg tablet 10 mg PO DAILY 07/10/17 losartan 50 mg tablet 50 mg PO DAILY 02/01/18 rivaroxaban 15 mg tablet 20 mg PO DAILY tab 02/25/20 trazodone 50 mg tablet 50 mg PO QHS tab 02/25/20 Carvedilol [Coreg (Beta Tin)] 6.25 mg PO BID 05/31/20 Furosemide [Lasix] 40 mg PO DAILY 05/31/20 Insulin Aspart [Novolog Flexpen See Protocol [facility] 05/31/20 ([facility])] Insulin Aspart [Novolog Vial] 80 units SQ BID 05/31/20 Levemir 80 unit SQ BID 05/31/20 Levocetirizine Dihydrochloride 5 mg PO QHS 05/31/20 Oxycodone HCl/Acetaminophen 1 tablet PO Q4H PRN 05/31/20 [Percocet 5/325] Umeclidinium Brm/Vilanterol Tr 1 puff PO DAILY 05/31/20 [Anoro Ellipta 62.5-25 Mcg INH] Victoza 1.8 mg SQ DAILY 05/31/20 Surgical History: Surgical History (Last Reviewed 06/02/20 @ 12:[address] Eloy Peacock MD) History of implantable cardiac defibrillator (ICD) (Chronic) Onset Date: 02/07/1808/2007 implanted, Gen Change 01/2018 History of coronary artery stent placement (Resolved) Onset Date: 02/27/05 Z95.5 PCI-BMS-OM1 w/ 3.0 x 12 mm, 3.0 x 16 mm and 3.5 x 12 mm [place] Stents 02/27/2005 OCCLUDED Stents per [facility] 2007 and 2013 H/O coronary artery bypass surgery (Resolved) Onset Date: 04/18/99 Z95.1 CABG x 2: MENDOZA-LAD, RAD-RCA 04/18/1999 Hx of cataract extraction Z98.49 History of left heart catheterization Onset Date: 10/13/13 Z98.890 1999, 02/2005, 03/14/2007, 10/13/13 Surgical History: coronary bypass surgery, pacemaker implantation Psychiatric History: No pertinent psych hx Lives: Alone Smoking Status: Former smoker Tobacco Use: Cigarettes Alcohol: None Drugs: None - *Family History Maternal Family History: Family History (Last Reviewed 06/02/20 @ 12:[address] Eloy Peacock MD) Father CAD (coronary artery disease) Diabetes Brother CAD (coronary artery disease) Diabetes Mother Cancer Brother Diabetes History Items: No pertinent history Review of Systems Constitutional: Denies: Anorexia Eyes: Denies: Blurred vision HEENT: Denies: Difficulty Hearing Cardiovascular: Denies: Chest Pain, Claudication Respiratory: Denies: Cough Gastrointestinal: Denies: Abdominal Pain Genitourinary: Denies: Dysuria Musculoskeletal: Denies: Arm Pain, Back Pain Skin: Reports: Wounds - Right great toe Psychiatric: Denies: Anxiety Hematologic/ Lymphatic: Denies: Adenopathy Patient Problems: Active and Suspected Problems (Last Reviewed 06/02/20 @ 12:[address] Eloy Peacock MD) Diabetes mellitus type 2, controlled, with complications (Acute) Cellulitis of right foot (Acute) Neuropathic ulcer of right foot with fat layer exposed (Acute) Psoriasis (Acute) - Physical Exam Vitals/I&O's: Vital Signs Temp Pulse Resp BP Pulse Ox 98.6 F 77 16 121/52 H 94 06/02/20 11:27 06/02/20 11:27 06/02/20 11:27 06/02/20 11:27 06/02/20 11:27 Oxygen Delivery Method Room Air Weight: 262 lb 12.656 oz Body Mass Index (BMI) 31.9 Intake and Output for Last 24 Hours 05/31/20 06/01/20 06/02/20 23:59 23:59 23:59 Intake Total 1466.67 / 1466.67 2204 / 2204 756 / 756 Output Total 400 / 400 Balance 1466.67 / 1466.67 1804 / 1804 756 / 756 General: Alert, Oriented x3 HEENT: Atraumatic, PERRLA Oral: Moist Mucosa Neck: Supple Lungs: Clear to auscultation Cardiovascular: Regular rate Abdomen: Bowel Sounds Present, Soft, Non Tender Extremities: - - Right great toe dressing intact. Palpable radial pulse No palpable pedal pulse Neurological: - - Moves all extremities well x4 Microbiology Past 72 Hours 05/31/20 19:26 Wound - Right Foot Gram Stain - Final 05/31/20 19:26 Wound - Right Foot Wound Culture - Preliminary Escherichia coli Gram Positive Cocci Laboratory Results 06/01/20 16:01: POC Glucose 403 H 06/01/20 17:23: POC Glucose 322 H 06/01/20 22:02: POC Glucose 241 H 06/02/20 07:25: S.aureus Protein A PCR POSITIVE H, MRSA (PCR) Negative 06/02/20 07:31: POC Glucose 218 H 06/02/20 11:20: POC Glucose 264 H Current Medications Acetaminophen (Acetaminophen 325 Mg Tablet) 650 mg PO Q6H PRN PRN PRN Reason: Pain Score 1-10/Temp > 100.7 F Last Admin: 06/01/20 11:15 Dose: 650 mg Documented by: Atorvastatin Calcium (Atorvastatin Calcium 80 Mg Tablet) 80 mg PO DAILY@2200 [facility] Last Admin: 06/01/20 22:05 Dose: 80 mg Documented by: Carvedilol (Carvedilol 6.25 Mg Tablet) 6.25 mg PO BID [facility] Last Admin: 06/02/20 07:38 Dose: 6.25 mg Documented by: Collagenase (Collagenase 30gm Tube) 1 applic TOPICAL DAILY [facility]; Protocol Last Admin: 06/02/20 08:46 Dose: 1 applic Documented by: Ezetimibe (Ezetimibe 10 Mg Tablet) 10 mg PO DAILY [facility] Last Admin: 06/02/20 07:38 Dose: 10 mg Documented by: Furosemide (Furosemide 40 Mg Tablet) 40 mg PO DAILY [facility] Last Admin: 06/02/20 07:38 Dose: 40 mg Documented by: Hydroxyzine Pamoate (Hydroxyzine Deb 25 Mg Capsule) 50 mg PO QHS [facility] Last Admin: 06/01/20 09:22 Dose: 50 mg Documented by: Clindamycin Phosphate 900 mg/ (Dextrose) 106 mls @ 150 mls/hr IV Q8 [facility] Last Infusion: 06/02/20 07:35 Dose: Infused Documented by: Piperacillin Sod/Tazobactam (Sod 3.375 gm/ Sodium Chloride) 50 mls @ 12.5 mls/hr IV Q8 [facility] Last Infusion: 06/02/20 10:34 Dose: Infused Documented by: Sodium Chloride () 250 mls @ 15 mls/hr IV .[id number] PRN PRN Reason: Saline Flush Insulin Glargine (Insulin Glargine 100 Units/Ml Pen) 84 units SC BID [facility] Last Admin: 06/02/20 09:19 Dose: 84 unit Documented by: Insulin Human Lispro (Insulin Lispro 100 Unit/Ml Insuln.Pen) 0 unit SC [facility]; Protocol Last Admin: 06/02/20 11:25 Dose: 9 units Documented by: Insulin Human Lispro (Insulin Lispro 100 Unit/Ml Insuln.Pen) [facility] Last Admin: 06/02/20 09:15 Dose: 74 units Documented by: Ipratropium [place] (Ipratropium 0.5 Mg/2.5 Ml Solution) 0.5 mg INHALATION Q4H.RT PRN PRN Reason: SOB &/OR WHEEZING Loratadine (Loratadine 10 Mg Tablet) 5 mg PO QHS [facility] Last Admin: 06/01/20 22:05 Dose: 5 mg Documented by: Losartan Potassium (Losartan Potassium 50 Mg Tablet) 50 mg PO DAILY [facility] Last Admin: 06/02/20 07:38 Dose: 50 mg Documented by: Melatonin (Melatonin 3 Mg Tablet) 3 mg PO QHS PRN PRN PRN Reason: INSOMNIA Ondansetron HCl (Ondansetron 4 Mg/2 Ml Vial) 4 mg IV Q8H PRN PRN PRN Reason: NAUSEA/VOMITING Oxycodone HCl (Oxycodone 5 Mg Tablet) 5 mg PO Q4H PRN PRN Reason: Pain Score 1-10 Last Admin: 06/02/20 07:37 Dose: 5 mg Documented by: Rivaroxaban (Rivaroxaban 20 Mg Tablet) 20 mg PO DAILY [facility] Last Admin: 06/02/20 07:39 Dose: 20 mg Documented by: Sodium Chloride (0.9% Saline Lock 10 Ml Syringe) 10 - 40 ml IV UD PRN PRN Reason: SALINE FLUSH Last Admin: 06/01/20 14:59 Dose: 20 ml Documented by: Trazodone HCl (Trazodone 50 Mg Tablet) 50 mg PO QHS [facility] Last Admin: 06/01/20 22:05 Dose: 50 mg Documented by: Assessment/Plan All Active Problems (Last Reviewed 06/02/20 @ 12:[address] Eloy Peacock MD) PAD (peripheral artery disease) (Acute) Osteomyelitis (Acute) Diabetes mellitus type 2, controlled, with complications (Acute) Cellulitis of right foot (Acute) Neuropathic ulcer of right foot with fat layer exposed (Acute) Psoriasis (Acute) History of coronary artery stent placement (Resolved 02/27/05) H/O coronary artery bypass surgery (Resolved 04/18/99) History of non-ST elevation myocardial infarction (NSTEMI) (Resolved 10/11/13) 1. PAD. We will need to get a CTA abdomen pelvis with runoff. We will have to better assess this to see how his iliofemoral segment is. This will also assist if we need to come from his arm or his groin to do some angioplasty. Will probably need some type of intervention before proceeding with a toe amputation. We can get the CTA done this week I will review and get him set for an angiogra m while he is here next week
--- NOTE | 2020-06-02 12:14 | CASEMGMT ---
RN LUZ NOTE: [facility] palliative screening tool completed. Pt does not meet criteria for Palliative referral at this time. Nikki JULES RN CM
--- NOTE | 2020-06-02 12:45 | PCM.PN.HOSP ---
Patient Problems: Active and Suspected Problems (Last Reviewed 06/02/20 @ 12:[address] Eloy Peacock MD) PAD (peripheral artery disease) (Acute) Diabetes mellitus type 2, controlled, with complications (Acute) Cellulitis of right foot (Acute) Neuropathic ulcer of right foot with fat layer exposed (Acute) Psoriasis (Acute) Reason for Visit: Follow-up for foot infection status post failed outpatient therapy Subjective: Patient was seen and examined. He was feeling sleepy today. MRI of the left foot showed osteomyelitis of the dorsal and medial aspect of base of 1st distal phalanx. He denies any fever or chills. Objective: Physical exam: General: Alert, Oriented x3, Cooperative, No apparent distress, Well developed HEENT: Atraumatic Oral: Moist Mucosa Neck: Supple Lungs: Clear to auscultation Cardiovascular: HS I+II, regular, no murmurs Abdomen: Bowel Sounds Present, Soft, Non Tender Extremities: No edema Skin: No rashes, No breakdown Neurological: Grossly intact Psych/Mental Status: Appropriate Vitals/I&O's: Vital Signs Temp Pulse Resp BP Pulse Ox 98.6 F 77 16 121/52 H 94 06/02/20 11:27 06/02/20 11:27 06/02/20 11:27 06/02/20 11:27 06/02/20 11:27 Oxygen Delivery Method Room Air Weight: 119.2 kg Body Mass Index (BMI) 31.9 Intake and Output for Last 24 Hours 05/31/20 06/01/20 06/02/20 23:59 23:59 23:59 Intake Total 1466.67 / 1466.67 2204 / 2204 756 / 756 Output Total 400 / 400 Balance 1466.67 / 1466.67 1804 / 1804 756 / 756 Microbiology Past 72 Hours 05/31/20 19:26 Wound - Right Foot Gram Stain - Final 05/31/20 19:26 Wound - Right Foot Wound Culture - Preliminary Escherichia coli Gram Positive Cocci Laboratory Results 06/01/20 16:01: POC Glucose 403 H 06/01/20 17:23: POC Glucose 322 H 06/01/20 22:02: POC Glucose 241 H 06/02/20 07:25: S.aureus Protein A PCR POSITIVE H, MRSA (PCR) Negative 06/02/20 07:31: POC Glucose 218 H 06/02/20 11:20: POC Glucose 264 H Current Medications Acetaminophen (Acetaminophen 325 Mg Tablet) 650 mg PO Q6H PRN PRN PRN Reason: Pain Score 1-10/Temp > 100.7 F Last Admin: 06/01/20 11:15 Dose: 650 mg Documented by: Atorvastatin Calcium (Atorvastatin Calcium 80 Mg Tablet) 80 mg PO DAILY@2200 [facility] Last Admin: 06/01/20 22:05 Dose: 80 mg Documented by: Carvedilol (Carvedilol 6.25 Mg Tablet) 6.25 mg PO BID [facility] Last Admin: 06/02/20 07:38 Dose: 6.25 mg Documented by: Collagenase (Collagenase 30gm Tube) 1 applic TOPICAL DAILY [facility]; Protocol Last Admin: 06/02/20 08:46 Dose: 1 applic Documented by: Ezetimibe (Ezetimibe 10 Mg Tablet) 10 mg PO DAILY [facility] Last Admin: 06/02/20 07:38 Dose: 10 mg Documented by: Furosemide (Furosemide 40 Mg Tablet) 40 mg PO DAILY [facility] Last Admin: 06/02/20 07:38 Dose: 40 mg Documented by: Hydroxyzine Pamoate (Hydroxyzine Deb 25 Mg Capsule) 50 mg PO QHS [facility] Last Admin: 06/01/20 09:22 Dose: 50 mg Documented by: Sodium Chloride () 250 mls @ 15 mls/hr IV .[id number] PRN PRN Reason: Saline Flush Ampicillin Sodium/Sulbactam (Sodium 3 gm/ Sodium Chloride) 112 mls @ 150 mls/hr IV Q8 [facility] Insulin Glargine (Insulin Glargine 100 Units/Ml Pen) 84 units SC BID [facility] Last Admin: 06/02/20 09:19 Dose: 84 unit Documented by: Insulin Human Lispro (Insulin Lispro 100 Unit/Ml Insuln.Pen) 0 unit SC ACHS [facility]; Protocol Last Admin: 06/02/20 11:25 Dose: 9 units Documented by: Insulin Human Lispro (Insulin Lispro 100 Unit/Ml [facility]uln.Pen) [facility] Last Admin: 06/02/20 09:15 Dose: 74 units Documented by: Ipratropium [place] (Ipratropium 0.5 Mg/2.5 Ml Solution) 0.5 mg INHALATION Q4H.RT PRN PRN Reason: SOB &/OR WHEEZING Loratadine (Loratadine 10 Mg Tablet) 5 mg PO QHS [facility] Last Admin: 06/01/20 22:05 Dose: 5 mg Documented by: Losartan Potassium (Losartan Potassium 50 Mg Tablet) 50 mg PO DAILY [facility] Last Admin: 06/02/20 07:38 Dose: 50 mg Documented by: Melatonin (Melatonin 3 Mg Tablet) 3 mg PO QHS PRN PRN PRN Reason: INSOMNIA Ondansetron HCl (Ondansetron 4 Mg/2 Ml Vial) 4 mg IV Q8H PRN PRN PRN Reason: NAUSEA/VOMITING Oxycodone HCl (Oxycodone 5 Mg Tablet) 5 mg PO Q4H PRN PRN Reason: Pain Score 1-10 Last Admin: 06/02/20 07:37 Dose: 5 mg Documented by: Rivaroxaban (Rivaroxaban 20 Mg Tablet) 20 mg PO DAILY [facility] Last Admin: 06/02/20 07:39 Dose: 20 mg Documented by: Sodium Chloride (0.9% Saline Lock 10 Ml Syringe) 10 - 40 ml IV UD PRN PRN Reason: SALINE FLUSH Last Admin: 06/01/20 14:59 Dose: 20 ml Documented by: Trazodone HCl (Trazodone 50 Mg Tablet) 50 mg PO QHS [facility] Last Admin: 06/01/20 22:05 Dose: 50 mg Documented by: STROKE Vital Signs/Narrative: Vital Signs Temp Pulse Resp BP Pulse Ox 06/02/20 11:27 98.6 F 77 16 121/52 H 94 Medical Necessity - Tobacco Use Smoking Status: Former smoker Tobacco Use: Cigarettes Assessment/Plan All Active Problems (Last Reviewed 06/02/20 @ 12:[address] Eloy Peacock MD) PAD (peripheral artery disease) (Acute) Osteomyelitis (Acute) Diabetes mellitus type 2, controlled, with complications (Acute) Cellulitis of right foot (Acute) Neuropathic ulcer of right foot with fat layer exposed (Acute) Psoriasis (Acute) History of coronary artery stent placement (Resolved 02/27/05) H/O coronary artery bypass surgery (Resolved 04/18/99) History of non-ST elevation myocardial infarction (NSTEMI) (Resolved 10/11/13) 1. Acute left distal phalanx E. coli./gram positive cocci osteomyelitis/Cellulitis/infected ulcer right foot Vascular surgery, ID and podiatry consulted Was on IV clindamycin and Zosyn; currently on IV unasyn Will continue per ID recommendations 2.Chronic, not acute, fracture of the proximal fifth metatarsal, podiatry consulted, pain fairly controlled 3. Elevated lactic acid, unclear etiology, no signs of sepsis, improved 4. Type 2 DM complicated with diabetic neuropathy, sugars are fairly uncontrolled, continue on home Lantus and scheduled lispro 5. Hypertension/Hyperlipidemia/ s/p ICD/CAD s/p stent/CABG, stable, continue on statin, carvedilol, Zetia, Lasix, losartan 6. H/o DVT, continue on Xarelto 7. DVT prophylaxis-on Xarelto Inpatient E&M: 34711 Subs Hosp L2
--- NOTE | 2020-06-02 13:37 | CT_ITS ---
STUDY: CTA OF THE ABDOMINAL AORTA AND BILATERAL LOWER EXTREMITIES REASON FOR EXAM: Male, 64 years old. Severe PAD RADIATION DOSAGE (If Supplied By Facility): CTDIvol = ( 8.34 ) mGy, DLP = ( 1727.44 ) mGycm TECHNIQUE: Axial CT angiography multi-detector data acquisition was obtained from the lung bases to the feet following intravenous administration of IV 100mL Isovue-370. Axial images and MIP images were reconstructed from the axial data set. Post-processing of the angiographic images was performed, with multiplanar reformation and 3D reconstruction. Individualized dose optimization techniques were used for this CT. TECHNICAL QUALITY: Good COMPARISON: None. Descriptors of Narrowing: None (0%) Mild (< 50%) Moderate (50-70%) Severe (70-90%) Subtotal/Total Occlusion (90-100%) Non-Evaluable (technically non-diagnostic FINDINGS: Abdominal aorta: Atherosclerotic calcifications with no hemodynamically significant narrowing. Celiac artery: Focal calcification with moderate luminal narrowing of the origin. Calcifications with narrowing at the hepatic artery. Superior mesenteric artery: Atherosclerotic calcification with mild luminal narrowing. Inferior mesenteric artery: Atherosclerotic calcification at the origin with mild narrowing. Right renal artery(arteries): Atherosclerotic calcifications with mild luminal narrowing. Left renal artery(arteries): Focal calcification with slight narrowing at the origin. Right common iliac artery: Diffuse atherosclerotic calcifications with mild luminal narrowing. Right external iliac artery: Diffuse atherosclerotic calcifications with mild luminal narrowing. Right internal iliac artery: Diffuse atherosclerotic calcifications with mild luminal narrowing. Left common iliac artery: Diffuse atherosclerotic calcifications with mild luminal narrowing. Left external iliac artery: Diffuse atherosclerotic calcifications with moderate luminal narrowing. Left internal iliac artery: Diffuse atherosclerotic calcifications with moderate luminal narrowing. RIGHT LOWER EXTREMITY Right common femoral artery: Diffuse atherosclerotic calcifications with severe luminal narrowing. Right profundus femoris: Diffuse atherosclerotic calcifications with mild luminal narrowing. Right superficial femoral: Diffuse atherosclerotic calcifications with moderate to severe segmental luminal narrowings. Right popliteal artery: Diffuse atherosclerotic calcifications with mild focal luminal narrowing. Right tibioperoneal trunk: Diffuse atherosclerotic calcifications with moderate luminal narrowing. Right anterior tibial artery: Distal occlusion just above the ankle. Right posterior tibial artery: Diffuse atherosclerotic calcifications with mild luminal narrowing. Right peroneal artery: Diffuse atherosclerotic calcifications with mild luminal narrowing. LEFT LOWER EXTREMITY Left common femoral artery: Diffuse atherosclerotic calcifications with severe luminal narrowing. Left profundus femoris: Diffuse atherosclerotic calcifications with mild luminal narrowing. Left superficial femoral: Diffuse atherosclerotic calcifications with moderate to severe luminal narrowings. Left popliteal artery: Diffuse atherosclerotic calcifications with mild luminal narrowing. Left tibioperoneal trunk: Diffuse atherosclerotic calcifications with mild luminal narrowing. Left anterior tibial artery: Diffuse atherosclerotic calcifications with mild luminal narrowing. Left posterior tibial artery: Diffuse atherosclerotic calcifications with mild luminal narrowing. Left peroneal artery: Diffuse atherosclerotic calcifications with mild luminal narrowing. Right pulmonary calcified granulomas. Fatty liver. Status post cholecystectomy. CT/CTA Abd w/Runoff W/WO Contrast IMPRESSION: Atherosclerotic calcifications of the abdominal aorta and bilateral lower lower extremity arteries as noted. Occluded distal right anterior tibial artery. Electronically Signed: Yovanny Montilla DO at 20:00 EDT Tel [phone], Service support ,
--- NOTE | 2020-06-02 13:41 | CON.PCM_ITS ---
Problem List (1) Osteomyelitis Status: Acute Reason for Consult: osteo Consulted by: Dr. Gutierrez History of Present Illness: The patient is a 64 year old M with DM neuropathy, reports toe biopsy done 2 weeks ago, then 2 days later started to have progressive redness, swelling, purulent/bloody drainage. No fever or chills. No pain due to neuropathy. Started on a twice daily po antibiotic without improvement. Redness spread up to knee. Came to ED, had rash/itching on arm when vanc was infusing, resolved when vanc was stopped. Admitted on clinda/zosyn, feeling better, redness improved, wants to keep his toe. Refuses covid vaccine, has been masking/distancing. Full ROS performed and neg except as noted above. - Medical History Past Medical History (Chronic Problems): Chronic Problems (Last Reviewed 06/02/20 @ 12:[address] 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) History of implantable cardiac defibrillator (ICD) (Chronic 02/07/18) 08/2007 implanted, Gen Change 01/2018 Atherosclerosis of [place] coronary artery of [place] heart without angina pectoris (Chronic) Old inferior wall myocardial infarction (Chronic 02/27/05) Ischemic cardiomyopathy (Chronic) Non-rheumatic aortic stenosis (Chronic) Secondary pulmonary arterial hypertension (Chronic) NSVT (nonsustained ventricular tachycardia) (Chronic) Essential (primary) hypertension (Chronic) Hyperlipidemia (Chronic) Claudication (Chronic) Allergies/Adverse Reactions: Allergies vancomycin Adverse Reaction (Verified 06/01/20 05:22) Rash Home Medications: Ambulatory Orders Medication Instructions Recorded Atorvastatin Calcium [Lipitor] 80 mg PO DAILY 10/05/13 Nitroglycerin (INPATIENT USE) 0.4 mg SUBLINGUAL Q5M PRN #25 tab 10/14/13 [Nitrostat] Albuterol Sulfate [Proventil Hfa] 6.7 gm IH Q4H PRN PRN 07/22/16 hydroxyzine HCl 50 mg tablet 50 mg PO QHS tab 03/14/17 ezetimibe 10 mg tablet 10 mg PO DAILY 07/10/17 losartan 50 mg tablet 50 mg PO DAILY 02/01/18 rivaroxaban 15 mg tablet 20 mg PO DAILY tab 02/25/20 trazodone 50 mg tablet 50 mg PO QHS tab 02/25/20 Carvedilol [Coreg (Beta Tin)] 6.25 mg PO BID 05/31/20 Furosemide [Lasix] 40 mg PO DAILY 05/31/20 Insulin Aspart [Novolog Flexpen See Protocol SC TIDCM 05/31/20 ([facility])] Insulin Aspart [Novolog Vial] 80 units SQ BID 05/31/20 Levemir 80 unit SQ BID 05/31/20 Levocetirizine Dihydrochloride 5 mg PO QHS 05/31/20 Oxycodone HCl/Acetaminophen 1 tablet PO Q4H PRN 05/31/20 [Percocet 5/325] Umeclidinium Brm/Vilanterol Tr 1 puff PO DAILY 05/31/20 [Anoro Ellipta 62.5-25 Mcg INH] Victoza 1.8 mg SQ DAILY 05/31/20 - Social History SMOKING STATUS:: Former smoker Vital Signs Temp Pulse Resp BP Pulse Ox 98.6 F 77 16 121/52 H 94 06/02/20 11:27 06/02/20 11:27 06/02/20 11:27 06/02/20 11:27 06/02/20 11:27 Oxygen Delivery Method Room Air Weight: 119.2 kg Body Mass Index (BMI) 31.9 Microbiology Past 72 Hours 05/31/20 19:26 Gram Stain - Final Wound - Right Foot Wound Culture - Preliminary Escherichia coli Gram Positive Cocci Laboratory Tests Past 24 Hrs 06/02/20 07:25 S.aureus Protein A PCR POSITIVE H MRSA (PCR) Negative - Other Studies Radiology: [] reviewed Other Studies: [] Route of nutrition/ use of supplements: [] Nutritional Intake: [] IV Site: [] Patel Catheter: [] - Physical Exam General: Alert, Oriented x3, Cooperative, No apparent distress HEENT: Atraumatic, PERRLA, EOMI Neck: Supple, No Nodes Lungs: Clear to auscultation, Normal air movement Cardiovascular: Regular rate, Regular Rhythm Abdomen: Soft, Non Tender, Non-Distended Extremities: No edema Skin: Ulcer/ Wound - reviewed photo IV Site: Peripheral, without redness Musculoskeletal: No Tenderness to Palpation of Joints or Extremities Neurological: Cranial nerves II-XII grossly intact - Assessment/Plan Antibiotics: [] Assessment/Plan: [] Active and Suspected Problems (Last Reviewed 06/02/20 @ 12:[address] Eloy Peacock MD) PAD (peripheral artery disease) (Acute) Diabetes mellitus type 2, controlled, with complications (Acute) Cellulitis of right foot (Acute) Neuropathic ulcer of right foot with fat layer exposed (Acute) Psoriasis (Acute) R 1st toe osteo - cx with ecoli and GPC, pcr (+) mssa. Red Man syndrome with vanc, likely not true allergy. Based on cxs so far, will narrow to unasyn. Will follow, thank you
[2020-06-02] MEDS: 0.9% Normal Saline 1,000 ML 100 ML IV (15:01)
[2020-06-02 15:16] VITALS: BP 128/52; PULSE 85; RESP 16; TEMP 36.8; O2SAT 96
--- NOTE | 2020-06-02 15:35 | CASEMGMT ---
RN LUZ NOTE: Anticipate pt may need IV atb's @ discharge. TIA CM to room to talk with pt. He states, if he would need IV atb's, that he and Indira, who lives with him, would be willing/able to be taught how to do IV administration. He was provided w/list of Infusion companies. He denies preference and is agreeable to [facility]. Call placed to [facility] at this time and spoke w/Indira. Demographics w/insurance information faxed to [facility] at this time. She will run financials and return call to this RN CM once this info is obtained. Pt states he/Indira would both be able to do the dressing changes as well. Pt states he has 3 daughters that are nurses that live fairly close and could assist as needed as well. Nikki JULES RN CM
[2020-06-02 20:01] LABS: Bedside Glucose 326 mg/dL (70-110)
[2020-06-02 22:17] VITALS: BP 142/64; PULSE 81; RESP 18; TEMP 36.8; O2SAT 93
[2020-06-02] MEDS: traZODone 50 MG Tablet PO (22:31)
[2020-06-02] MEDS: hydrOXYzine PAM 25 MG Capsule 50 MG PO (22:31)
[2020-06-02] MEDS: Atorvastatin Calcium 80 MG Tablet PO (22:31)
[2020-06-02] MEDS: Loratadine 10 MG Tablet 5 MG PO (22:32)
[2020-06-02 23:06] LABS: Bedside Glucose 264 mg/dL (70-110)
[2020-06-03] MEDS: 0.9% Normal Saline 1,000 ML 100 ML IV (02:36)
[2020-06-03 04:14] VITALS: BP 133/47; PULSE 76; RESP 18; TEMP 36.6; O2SAT 95
[2020-06-03 07:32] VITALS: O2SAT 96
[2020-06-03 07:40] VITALS: BP 119/45; PULSE 74; RESP 16; TEMP 36.6; O2SAT 97
[2020-06-03 07:40] LABS: Bedside Glucose 130 mg/dL (70-110)
[2020-06-03] MEDS: Insulin Lispro 100 UNIT/ML INSULN.PEN 74 UNIT SC (08:13)
--- NOTE | 2020-06-03 09:12 | PN_ITS ---
Patient Problems: Active and Suspected Problems (Last Reviewed 06/02/20 @ 12:[address] Eloy Peacock MD) PAD (peripheral artery disease) (Acute) Osteomyelitis (Acute) Diabetes mellitus type 2, controlled, with complications (Acute) Cellulitis of right foot (Acute) Neuropathic ulcer of right foot with fat layer exposed (Acute) Psoriasis (Acute) Subjective: Patient seen and examined resting comfortably. Patient denies any new pedal complaints. Patient denies any nausea, fever, chills, chest pain, shortness of breath, cough, streaking, purulence, vomiting. Patient relates pain is better in the foot but not resolved completely. - Physical Exam Vitals/I&O's: Vital Signs Temp Pulse Resp BP Pulse Ox 97.9 F 74 16 119/45 L 97 06/03/20 07:40 06/03/20 07:40 06/03/20 07:40 06/03/20 07:40 06/03/20 07:40 Oxygen Delivery Method Room Air Weight: 119.2 kg Body Mass Index (BMI) 31.9 Intake and Output for Last 24 Hours 06/01/20 06/02/20 06/03/20 23:59 23:59 23:59 Intake Total 2204 / 2204 1686.67 / 1886.67 2098.66 / 2098.66 Output Total 400 / 400 Balance 1804 / 1804 1686.67 / 1886.67 2098.66 / 2098.66 General: Alert, Oriented x3 HEENT: Atraumatic Abdomen: Obese Extremities: No cyanosis, Capillary Refill Less than 3 Seconds, No Calf Tenderness - Negative Nathaly and Solorzano sign, Diminished Peripheral Pulses, Edema - Almost completely resolved to right foot Skin: Ulcer/ Wound - Right medial hallux ulceration. No malodor, purulence, probing to bone, streaking, fluctuation, crepitus. Erythema and edema are much improved. Skin is atrophic and hairless. Wound base is fibrotic in appearance with no remaining necrotic tissue noted since starting Santyl. Musculoskeletal: Tenderness Neurological: - - Absent epicritic sensation consistent with neuropathy Psych/Mental Status: Normal Affect, Appropriate Microbiology Past 72 Hours 05/31/20 19:26 Wound - Right Foot Gram Stain - Final 05/31/20 19:26 Wound - Right Foot Wound Culture - Preliminary Escherichia coli Strep anginosus 05/31/20 19:26 Wound - Right Foot Anaerobic Culture - Preliminary Checking for anaerobes, further studies to follow. Laboratory Results 06/02/20 07:25: S.aureus Protein A PCR POSITIVE H, MRSA (PCR) Negative 06/02/20 11:20: POC Glucose 264 H 06/02/20 16:00: POC Glucose 326 H 06/02/20 22:25: POC Glucose 264 H 06/03/20 07:36: POC Glucose 130 H Current Medications Acetaminophen (Acetaminophen 325 Mg Tablet) 650 mg PO Q6H PRN PRN PRN Reason: Pain Score 1-10/Temp > 100.7 F Last Admin: 06/01/20 11:15 Dose: 650 mg Documented by: Atorvastatin Calcium (Atorvastatin Calcium 80 Mg Tablet) 80 mg PO DAILY@2200 REPLACED BY [facility] Last Admin: 06/02/20 22:31 Dose: 80 mg Documented by: Carvedilol (Carvedilol 6.25 Mg Tablet) 6.25 mg PO BID REPLACED BY [facility] Last Admin: 06/02/20 22:48 Dose: 6.25 mg Documented by: Collagenase (Collagenase 30gm Tube) 1 applic TOPICAL DAILY REPLACED BY [facility]; Protocol Last Admin: 06/02/20 08:46 Dose: 1 applic Documented by: Ezetimibe (Ezetimibe 10 Mg Tablet) 10 mg PO DAILY REPLACED BY [facility] Last Admin: 06/02/20 07:38 Dose: 10 mg Documented by: Furosemide (Furosemide 40 Mg Tablet) 40 mg PO DAILY REPLACED BY [facility] Last Admin: 06/02/20 07:38 Dose: 40 mg Documented by: Hydroxyzine Pamoate (Hydroxyzine Deb 25 Mg Capsule) 50 mg PO QHS REPLACED BY [facility] Last Admin: 06/02/20 22:31 Dose: 50 mg Documented by: Sodium Chloride () 250 mls @ 15 mls/hr IV .[id number] PRN PRN Reason: Saline Flush Ampicillin Sodium/Sulbactam (Sodium 3 gm/ Sodium Chloride) 112 mls @ 150 mls/hr IV Q8 REPLACED BY [facility] Last Infusion: 06/03/20 07:30 Dose: Infused Documented by: Insulin Glargine (Insulin Glargine 100 Units/Ml Pen) 86 units SC BID REPLACED BY [facility] Insulin Human Lispro (Insulin Lispro 100 Unit/Ml Insuln.Pen) 0 unit SC ACHS REPLACED BY [facility]; Protocol Last Admin: 06/03/20 07:39 Dose: Not Given Documented by: Insulin Human Lispro (Insulin Lispro 100 Unit/Ml Insuln.Pen) 74 unit SC BIDCM REPLACED BY [facility] Last Admin: 06/03/20 08:13 Dose: 74 units Documented by: Ipratropium [place] (Ipratropium 0.5 Mg/2.5 Ml Solution) 0.5 mg INHALATION Q4H.RT PRN PRN Reason: SOB &/OR WHEEZING Loratadine (Loratadine 10 Mg Tablet) 5 mg PO QHS REPLACED BY [facility] Last Admin: 06/02/20 22:32 Dose: 5 mg Documented by: Losartan Potassium (Losartan Potassium 50 Mg Tablet) 50 mg PO DAILY REPLACED BY [facility] Last Admin: 06/02/20 07:38 Dose: 50 mg Documented by: Melatonin (Melatonin 3 Mg Tablet) 3 mg PO QHS PRN PRN PRN Reason: INSOMNIA Ondansetron HCl (Ondansetron 4 Mg/2 Ml Vial) 4 mg IV Q8H PRN PRN PRN Reason: NAUSEA/VOMITING Oxycodone HCl (Oxycodone 5 Mg Tablet) 5 mg PO Q4H PRN PRN Reason: Pain Score 1-10 Last Admin: 06/02/20 22:32 Dose: 5 mg Documented by: Rivaroxaban (Rivaroxaban 20 Mg Tablet) 20 mg PO DAILY REPLACED BY [facility] Last Admin: 06/02/20 07:39 Dose: 20 mg Documented by: Sodium Chloride (0.9% Saline Lock 10 Ml Syringe) 10 - 40 ml IV UD PRN PRN Reason: SALINE FLUSH Last Admin: 06/01/20 14:59 Dose: 20 ml Documented by: Trazodone HCl (Trazodone 50 Mg Tablet) 50 mg PO QHS REPLACED BY [facility] Last Admin: 06/02/20 22:31 Dose: 50 mg Documented by: Medical Necessity - Tobacco Use Smoking Status: Former smoker Tobacco Use: Cigarettes Assessment/Plan All Active Problems (Last Reviewed 06/02/20 @ 12:[address] Eloy Peacock MD) PAD (peripheral artery disease) (Acute) Osteomyelitis (Acute) Diabetes mellitus type 2, controlled, with complications (Acute) Cellulitis of right foot (Acute) Neuropathic ulcer of right foot with fat layer exposed (Acute) Psoriasis (Acute) History of coronary artery stent placement (Resolved 02/27/05) H/O coronary artery bypass surgery (Resolved 04/18/99) History of non-ST elevation myocardial infarction (NSTEMI) (Resolved 10/11/13) Right hallux ulcer to fat Right hallux and foot cellulitis Right hallux osteomyelitis Diabetes with neuropathy Peripheral vascular disease Patient seen and examined and is in good spirits. Wound noted to be improved with lack of necrotic tissue and decreased erythema and edema Follow wound and blood cultures. Wound cultures growing e. coli and strep anginosus. Blood cultures are pending Continue antibiotics. Follow ID recommendations. Will likely be discharged on IV antibiotics with PICC line X-ray reviewed without signs of emphysema or osteomyelitis. There is chronic fracture the fifth metatarsal that is been present for years. MRI reviewed showing acute osteomyelitis changes to the hallux distal phalanx right foot. LEAS reviewed showing peripheral vascular disease. Per vascular recommendation CTA was also ordered. Plan for likely angio next week. Venous Doppler reviewed showing no DVT Continue wound care daily. Wound care nurse consulted. Reviewed case with her. To start Santyl daily dressing changes. Focus heel weightbearing in surgical shoe Patient to follow-up with me at the wound care center Sunday upon discharge. Patient is also follow-up with vascular surgery with Dr. Peacock for possible intervention on discharge. Reviewed with the patient concerning signs and symptoms to watch out for upon discharge and if any are seen to contact the office or go the emergency room. All questions answered Podiatry will continue to follow. Charmaine Gutierrez DPM [facility] [phone]
--- NOTE | 2020-06-03 09:20 | DCINST_ITS ---
- Discharge Diagnoses Current Active Problems: Current Active and Chronic Problems (Last Reviewed 06/02/20 @ 12:[address] Eloy Peacock MD) PAD (peripheral artery disease) (Acute) Osteomyelitis (Acute) Diabetes mellitus type 2, controlled, with complications (Acute) COPD (chronic obstructive pulmonary disease) (Chronic) Cellulitis of right foot (Acute) Diabetic neuropathy associated with type 2 diabetes mellitus (Chronic) Neuropathic ulcer of right foot with fat layer exposed (Acute) Psoriasis (Acute) History of implantable cardiac defibrillator (ICD) (Chronic 02/07/18) 08/2007 implanted, Gen Change 01/2018 Essential (primary) hypertension (Chronic) Hyperlipidemia (Chronic) You will use the following diet at home:: Calorie/Carbohydrate Controlled (specify 1200, 1400, etc) Discharge Activity: Return to Normal Activity - Limit excessive physical activity. Okay to ambulate for activities of daily living. Should be in surgical shoe for every step Weight Bearing Status: Weight bearing as tolerated - Surgical shoe right foot Call your doctor if your incision/area has: Increased Pain/ Swelling, Increased Redness, Foul Smelling Discharge, Swelling at the incision site Call your doctor if you observe: Fever of 101 or Higher, Shortness of breath, Dizziness, Fainting spells, Chest pain, Calf discomfort Additional Dressing/Incision Instructions:: Daily dressing change with Santyl to wound bed covered with dry sterile dressing. If applying Greg wrap to prevent dressing from falling off should be applied loosely. Allergies/Adverse Reactions: Allergies vancomycin Adverse Reaction (Verified 06/02/20 13:45) Rash Red Man Syndrome Medications to take at Discharge Atorvastatin Calcium [Lipitor] 80 mg PO DAILY 10/05/13 Nitroglycerin (INPATIENT USE) [Nitrostat] 0.4 mg SUBLINGUAL Q5M PRN #25 tab 10/14/13 Albuterol Sulfate [Proventil Hfa] 6.7 gm IH Q4H PRN PRN 07/22/16 hydroxyzine HCl 50 mg tablet 50 mg PO QHS tab 03/14/17 ezetimibe 10 mg tablet 10 mg PO DAILY 07/10/17 losartan 50 mg tablet 50 mg PO DAILY 02/01/18 rivaroxaban 15 mg tablet 20 mg PO DAILY tab 02/25/20 trazodone 50 mg tablet 50 mg PO QHS tab 02/25/20 Carvedilol [Coreg (Beta Tin)] 6.25 mg PO BID 05/31/20 Furosemide [Lasix] 40 mg PO DAILY 05/31/20 Insulin Aspart [Novolog Flexpen ([facility])] See Protocol SC TIDCM 05/31/20 Insulin Aspart [Novolog Vial] 80 units SQ BID 05/31/20 Levemir 80 unit SQ BID 05/31/20 Levocetirizine Dihydrochloride 5 mg PO QHS 05/31/20 Oxycodone HCl/Acetaminophen [Percocet 5/325] 1 tablet PO Q4H PRN 05/31/20 Umeclidinium Brm/Vilanterol Tr [Anoro Ellipta 62.5-25 Mcg INH] 1 puff PO DAILY 05/31/20 Victoza 1.8 mg SQ DAILY 05/31/20 Primary Care Physician: Bulmaro Garcia MD [Primary Care Provider] - Test Results: Test results from this visit will be discussed in further detail at your follow- up appointment, if applicable. Please Follow Up With: Charmaine Gutierrez DPM When: Next Sunday at the wound care center at [phone]
--- NOTE | 2020-06-03 09:51 | PN.ID_ITS ---
Patient Problems: Active and Suspected Problems (Last Reviewed 06/02/20 @ 12:[address] Eloy Peacock MD) PAD (peripheral artery disease) (Acute) Osteomyelitis (Acute) Diabetes mellitus type 2, controlled, with complications (Acute) Cellulitis of right foot (Acute) Neuropathic ulcer of right foot with fat layer exposed (Acute) Psoriasis (Acute) Subjective: Feeling better, no fever, no n/v/d. - Physical Exam Vitals/I&O's: Vital Signs Temp Pulse Resp BP Pulse Ox 97.9 F 74 16 119/45 L 97 06/03/20 07:40 06/03/20 07:40 06/03/20 07:40 06/03/20 07:40 06/03/20 07:40 Oxygen Delivery Method Room Air Weight: 119.2 kg Body Mass Index (BMI) 31.9 Intake and Output for Last 24 Hours 06/01/20 06/02/20 06/03/20 23:59 23:59 23:59 Intake Total 2204 / 2204 1686.67 / 1886.67 2098.66 / 2098.66 Output Total 400 / 400 Balance 1804 / 1804 1686.67 / 1886.67 2098.66 / 2098.66 General: Alert, Cooperative, No apparent distress Lungs: Clear to auscultation, Normal air movement Cardiovascular: Regular rate, Regular Rhythm Abdomen: Soft, Non Tender, Non-Distended Skin: Rash Present - redness improved Microbiology Past 72 Hours 05/31/20 19:05 Blood Culture (Wb) - Left Hand Blood Culture - Preliminary No growth in 48 hours. 05/31/20 16:57 Blood Culture (Wb) - Right Forearm Blood Culture - Preli minary No growth in 48 hours. 05/31/20 19:26 Wound - Right Foot Gram Stain - Final 05/31/20 19:26 Wound - Right Foot Wound Culture - Preliminary Escherichia coli Strep anginosus 05/31/20 19:26 Wound - Right Foot Anaerobic Culture - Preliminary Checking for anaerobes, further studies to follow. Laboratory Results 06/02/20 07:25: S.aureus Protein A PCR POSITIVE H, MRSA (PCR) Negative 06/02/20 11:20: POC Glucose 264 H 06/02/20 16:00: POC Glucose 326 H 06/02/20 22:25: POC Glucose 264 H 06/03/20 07:36: POC Glucose 130 H Current Medications Acetaminophen (Acetaminophen 325 Mg Tablet) 650 mg PO Q6H PRN PRN PRN Reason: Pain Score 1-10/Temp > 100.7 F Last Admin: 06/01/20 11:15 Dose: 650 mg Documented by: Atorvastatin Calcium (Atorvastatin Calcium 80 Mg Tablet) 80 mg PO DAILY@2200 [facility] Last Admin: 06/02/20 22:31 Dose: 80 mg Documented by: Carvedilol (Carvedilol 6.25 Mg Tablet) 6.25 mg PO BID [facility] Last Admin: 06/02/20 22:48 Dose: 6.25 mg Documented by: Collagenase (Collagenase 30gm Tube) 1 applic TOPICAL DAILY [facility]; Protocol Last Admin: 06/02/20 08:46 Dose: 1 applic Documented by: Ezetimibe (Ezetimibe 10 Mg Tablet) 10 mg PO DAILY [facility] Last Admin: 06/02/20 07:38 Dose: 10 mg Documented by: Furosemide (Furosemide 40 Mg Tablet) 40 mg PO DAILY [facility] Last Admin: 06/02/20 07:38 Dose: 40 mg Documented by: Hydroxyzine Pamoate (Hydroxyzine Deb 25 Mg Capsule) 50 mg PO QHS [facility] Last Admin: 06/02/20 22:31 Dose: 50 mg Documented by: Sodium Chloride () 250 mls @ 15 mls/hr IV .[id number] PRN PRN Reason: Saline Flush Ampicillin Sodium/Sulbactam (Sodium 3 gm/ Sodium Chloride) 112 mls @ 150 mls/hr IV Q8 [facility] Last Infusion: 06/03/20 07:30 Dose: Infused Documented by: Insulin Glargine (Insulin Glargine 100 Units/Ml Pen) 86 units SC BID [facility] Insulin Human Lispro (Insulin Lispro 100 Unit/Ml Insuln.Pen) 0 unit SC ACHS [facility]; Protocol Last Admin: 06/03/20 07:39 Dose: Not Given Documented by: Insulin Human Lispro (Insulin Lispro 100 Unit/Ml [facility]n.[facility]) [facility] Last Admin: 06/03/20 08:13 Dose: 74 units Documented by: Ipratropium [place] (Ipratropium 0.5 Mg/2.5 Ml Solution) 0.5 mg INHALATION Q4H.RT PRN PRN Reason: SOB &/OR WHEEZING Loratadine (Loratadine 10 Mg Tablet) 5 mg PO QHS [facility] Last Admin: 06/02/20 22:32 Dose: 5 mg Documented by: Losartan Potassium (Losartan Potassium 50 Mg Tablet) 50 mg PO DAILY [facility] Last Admin: 06/02/20 07:38 Dose: 50 mg Documented by: Melatonin (Melatonin 3 Mg Tablet) 3 mg PO QHS PRN PRN PRN Reason: INSOMNIA Ondansetron HCl (Ondansetron 4 Mg/2 Ml Vial) 4 mg IV Q8H PRN PRN PRN Reason: NAUSEA/VOMITING Oxycodone HCl (Oxycodone 5 Mg Tablet) 5 mg PO Q4H PRN PRN Reason: Pain Score 1-10 Last Admin: 06/02/20 22:32 Dose: 5 mg Documented by: Rivaroxaban (Rivaroxaban 20 Mg Tablet) 20 mg PO DAILY [facility] Last Admin: 06/02/20 07:39 Dose: 20 mg Documented by: Sodium Chloride (0.9% Saline Lock 10 Ml Syringe) 10 - 40 ml IV UD PRN PRN Reason: SALINE FLUSH Last Admin: 06/01/20 14:59 Dose: 20 ml Documented by: Trazodone HCl (Trazodone 50 Mg Tablet) 50 mg PO QHS [facility] Last Admin: 06/02/20 22:31 Dose: 50 mg Documented by: Medical Necessity - Tobacco Use Smoking Status: Former smoker Tobacco Use: Cigarettes Route of nutrition/ use of supplements: [] Nutritional Intake: [] IV Site: [] Patel Catheter: [] - Assessment/Plan Antibiotics: [] Assessment/Plan: [] Active and Suspected Problems (Last Reviewed 06/02/20 @ 12:[address] Eloy Peacock MD) PAD (peripheral artery disease) (Acute) Diabetes mellitus type 2, controlled, with complications (Acute) Cellulitis of right foot (Acute) Neuropathic ulcer of right foot with fat layer exposed (Acute) Psoriasis (Acute) R 1st toe osteo - cx with ecoli and strep, pcr (+) mssa. Red Man syndrome with vanc, likely not true allergy. On unasyn. Had been on doxy as an outpt. Ok for d/c home on po doxy and augmentin for 6 week course. Planned vascular intervention. Will follow as needed as an outpt, d/w case manager specialist
[2020-06-03] MEDS: Carvedilol 6.25 MG Tablet PO (10:31)
[2020-06-03] MEDS: Losartan Potassium 50 MG Tablet PO (10:31)
[2020-06-03] MEDS: Ezetimibe 10 MG Tablet PO (10:33)
[2020-06-03] MEDS: Rivaroxaban 20 MG Tablet PO (10:33)
[2020-06-03] MEDS: Furosemide 40 MG Tablet PO (10:33)
[2020-06-03] MEDS: Collagenase 30gm Tube 1 APPLIC TOPICAL (10:34)
[2020-06-03] MEDS: Insulin Lispro 100 UNIT/ML INSULN.PEN SC (10:40)
[2020-06-03 10:51] LABS: Bedside Glucose 180 mg/dL (70-110)
--- NOTE | 2020-06-03 11:07 | CASEMGMT ---
Addendum entered by Enedelia Wilkins 06/03/20 11:10: TIA ESCOBAR notified Leslee at [facility] to make aware that pt will not need IV antibiotics. Referral cancelled. Also called [facility] to cancel referral. Original Note: TIA ESCOBAR updated that pt will be dc'd on PO antibiotics. TIA ESCOBAR in to pt room. Pt states he is to follow up at the Wound Center with and denies need for HH nurse for monitoring and assessment of wound. Pt states he is I in dressing changes prior and he and his friend are able to do. He is aware that if he changes his mind or is unable to notify at the wound center who can set up HH if she wishes. Pt denied further needs at this time.
[2020-06-03 13:37] VITALS: BP 129/68; PULSE 82; RESP 16; TEMP 36.7; O2SAT 97
--- NOTE | 2020-06-03 14:52 | DCINST_ITS ---
- Discharge Diagnoses Current Active Problems: Current Active and Chronic Problems (Last Reviewed 06/02/20 @ 12:[address] 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 Okay to ambulate for activities of daily living. Should be in surgical shoe for every step Weight Bearing Status: Weight bearing as tolerated - Surgical shoe right foot Call your doctor if your incision/area has: Increased Pain/ Swelling, Increased Redness, Foul Smelling Discharge, Swelling at the incision site Call your doctor if you observe: Fever of 101 or Higher, Shortness of breath, Dizziness, Fainting spells, Chest pain, Calf discomfort Additional Dressing/Incision Instructions:: Daily dressing change with Santyl to wound bed covered with dry sterile dressing. If applying Greg wrap to prevent dressing from falling off should be applied loosely. Additional Instructions: Continue antibiotics as prescribed. Follow-up with Dr. Gutierrez as planned. Allergies/Adverse Reactions: Allergies vancomycin Adverse Reaction (Verified 06/02/20 13:45) Rash Red Man Syndrome Medications to take at Discharge Atorvastatin Calcium [Lipitor] 80 mg PO DAILY 10/05/13 Nitroglycerin (INPATIENT USE) [Nitrostat] 0.4 mg SUBLINGUAL Q5M PRN #25 tab 10/14/13 Albuterol Sulfate [Proventil Hfa] 6.7 gm IH Q4H PRN PRN 07/22/16 hydroxyzine HCl 50 mg tablet 50 mg PO QHS tab 03/14/17 ezetimibe 10 mg tablet 10 mg PO DAILY 07/10/17 losartan 50 mg tablet 50 mg PO DAILY 02/01/18 rivaroxaban 15 mg tablet 20 mg PO DAILY tab 02/25/20 trazodone 50 mg tablet 50 mg PO QHS tab 02/25/20 Carvedilol [Coreg (Beta Tin)] 6.25 mg PO BID 05/31/20 Furosemide [Lasix] 40 mg PO DAILY 05/31/20 Insulin Aspart [Novolog Flexpen] See Protocol SC TIDCM 05/31/20 Insulin Aspart [Novolog Vial] 80 units SQ BID 05/31/20 Levocetirizine Dihydrochloride 5 mg PO QHS 05/31/20 Oxycodone HCl/Acetaminophen [Percocet 5-325] 1 tablet PO Q4H PRN 05/31/20 Umeclidinium Brm/Vilanterol Tr [Anoro Ellipta 62.5-25 Mcg INH] 1 puff PO DAILY 05/31/20 Victoza 1.8 mg SQ DAILY 05/31/20 Amoxicillin/Potassium Clav [Augmentin 875-125 Tablet] 1 each PO BID #80 tablet 06/03/20 Collagenase [Santyl] 1 applic TOPICAL DAILY tube 06/03/20 Doxycycline 100 mg PO BID #80 capsule 06/03/20 Insulin Glargine [Lantus SoloStar Pen] 86 units SC BID pen 06/03/20 The following prescriptions were given: Amoxicillin/Potassium Clav [Augmentin 875-125 Tablet] 1 each PO BID #80 tablet Transmission Status: Received by [facility] Doxycycline 100 mg PO BID #80 capsule Transmission Status: Received by [facility] Primary Care Physician: Bulmaro Garcia MD [Primary Care Provider] - Please follow up with your Primary Care Physician in: within 2 weeks Test Results: Test results from this visit will be discussed in further detail at your follow- up appointment, if applicable. Please Follow Up With: Charmaine Gutierrez DPM When: Next Sunday at the [facility] at [phone] Proposed Discharge Date: 06/03/20
--- NOTE | 2020-06-03 14:53 | PCM.DC.SUM ---
Discharge Date and Diagnosis - Problem List Patient Problems: Active and Suspected Problems (Last Reviewed 06/02/20 @ 12:[address] Eloy Peacock MD) PAD (peripheral artery disease) (Acute) Osteomyelitis (Acute) Diabetes mellitus type 2, controlled, with complications (Acute) Cellulitis of right foot (Acute) Neuropathic ulcer of right foot with fat layer exposed (Acute) Psoriasis (Acute) Date of Admission: 05/31/20 Date of Discharge: 06/03/20 - Primary Discharge Diagnosis Acute Problems: Active Problems (Last Reviewed 06/02/20 @ 12:[address] Eloy Peacock MD) 1. Acute left distal phalanx E. coli./gram positive cocci osteomyelitis/Cellulitis/infected ulcer right foot 2.Chronic, not acute, fracture of the proximal fifth metatarsal 3. Elevated lactic acid, unclear etiology, no signs of sepsis, improved - Secondary Discharge Diagnosis Chronic Problems: Chronic Problems (Last Reviewed 06/02/20 @ 12:[address] 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 Electronically Signed: Jb Caruso MD at 18:48 EDT Tel , Service support , Foot X-Ray 05/31/20 18:30 IMPRESSION: Fracture of the proximal fifth metatarsal. Electronically Signed: Bruno Bradshaw DO at 19:19 EDT Tel [phone], Service support , Lower Extremity MRI 06/01/20 09:39 IMPRESSION: Cellulitis the medial first digit with osteomyelitis of the dorsal and medial aspect of the base of the first distal phalanx. Electronically Signed: Jessee Rob MD at 15:34 EDT Tel , Service support , Extremity Arterial Study 06/01/20 09:42 Interpretation Summary Right leg with moderate occlusive disease with OTTO 0.67 and monophasic flow. Left normal at 1.02. Ordering Physician: Charmaine Gutierrez Referring Physician: Bulmaro Garcia MD Performed By: Haily Farris RVT and Student Abdomen/Pelvis CTA 06/02/20 13:37 IMPRESSION: Atherosclerotic calcifications of the abdominal aorta and bilateral lower lower extremity arteries as noted. Occluded distal right anterior tibial artery. Electronically Signed: Yovanny Montilla DO at 20:00 EDT Tel [phone], Service support , Consultations 05/31/20 22:22 Consult: Onc/Wound/clinical orthoptist Routine Comment: Podiatry Infectious disease Operations: None Procedures: None Summary of Care Provided: The patient is a 64 year old M with PMHx of Type 2 DM, complicated by peripheral neuropathy, PAD, Hypertension, COPD who follows with podiatry in the outpatient. He had recently completed antibiotics - oral antibiotics for a right toe infection. Patient was referred for evaluation for acute osteomyelitis. He had an MRI of the foot that showed acute right distal phalanx osteomyelitis. In the ED, patient was started on IV vancomycin but developed Mac syndrome. Vancomycin was stopped. He was managed on IV clindamycin and Zosyn. His antibiotics were further narrowed to IV Unasyn. Patient was discharged on doxycycline and Augmentin. Wound cultures grew E. coli/strep anginosus. No blood cultures showed no growth. Patient was seen by ID, podiatry and vascular surgery. He underwent CTA abd/pelvis with run offs. Findings showed an occluded right anterior tibial artery, atherosclerotic calcification of the abdominal aorta and distal lower extremity arteries. Patient Problems: Active and Suspected Problems (Last Reviewed 06/02/20 @ 12:[address] Eloy Peacock MD) PAD (peripheral artery disease) (Acute) Osteomyelitis (Acute) Diabetes mellitus type 2, controlled, with complications (Acute) Cellulitis of right foot (Acute) Neuropathic ulcer of right foot with fat layer exposed (Acute) Psoriasis (Acute) Subjective: On the day of discharge, patient was seen and examined. He felt improved. He is being discharged on oral antibiotics. Objective: Physical exam: General: Alert, Oriented x3, Cooperative, No apparent distress, Well developed HEENT: Atraumatic Oral: Moist Mucosa Neck: Supple Lungs: Clear to auscultation Cardiovascular: HS I+II, regular, no murmurs Abdomen: Bowel Sounds Present, Soft, Non Tender Extremities: No edema Skin: No rashes, No breakdown Neurological: Grossly intact Psych/Mental Status: Appropriate - Physical Exam Vitals/I&O's: Vital Signs Temp Pulse Resp BP Pulse Ox 98.1 F 82 16 129/68 H 97 06/03/20 13:37 06/03/20 13:37 06/03/20 13:37 06/03/20 13:37 06/03/20 13:37 Oxygen Delivery Method Room Air Weight: 119.2 kg Body Mass Index (BMI) 31.9 Intake and Output for Last 24 Hours 06/01/20 06/02/20 06/03/20 23:59 23:59 23:59 Intake Total 2204 / 2204 1686.67 / 1886.67 2210.66 / 2210.66 Output Total 400 / 400 Balance 1804 / 1804 1686.67 / 1886.67 2210.66 / 2210.66 Microbiology Past 72 Hours 05/31/20 19:05 Blood Culture (Wb) - Left Hand Blood Culture - Preliminary No growth in 48 hours. 05/31/20 16:57 Blood Culture (Wb) - Right Forearm Blood Culture - Preliminary No growth in 48 hours. 05/31/20 19:26 Wound - Right Foot Gram Stain - Final 05/31/20 19:26 Wound - Right Foot Wound Culture - Preliminary Escherichia coli Strep anginosus 05/31/20 19:26 Wound - Right Foot Anaerobic Culture - Preliminary Checking for anaerobes, further studies to follow. Laboratory Results 06/02/20 16:00: POC Glucose 326 H 06/02/20 22:25: POC Glucose 264 H 06/03/20 07:36: POC Glucose 130 H 06/03/20 10:39: POC Glucose 180 H Current Medications Acetaminophen (Acetaminophen 325 Mg Tablet) 650 mg PO Q6H PRN PRN PRN Reason: Pain Score 1-10/Temp > 100.7 F Last Admin: 06/01/20 11:15 Dose: 650 mg Documented by: Atorvastatin Calcium (Atorvastatin Calcium 80 Mg Tablet) 80 mg PO DAILY@2200 [facility] Last Admin: 06/02/20 22:31 Dose: 80 mg Documented by: Carvedilol (Carvedilol 6.25 Mg Tablet) 6.25 mg PO BID [facility] Last Admin: 06/03/20 10:31 Dose: 6.25 mg Documented by: Collagenase (Collagenase 30gm Tube) 1 applic TOPICAL DAILY [facility]; Protocol Last Admin: 06/03/20 10:34 Dose: 1 applic Documented by: Ezetimibe (Ezetimibe 10 Mg Tablet) 10 mg PO DAILY [facility] Last Admin: 06/03/20 10:33 Dose: 10 mg Documented by: Furosemide (Furosemide 40 Mg Tablet) 40 mg PO DAILY [facility] Last Admin: 06/03/20 10:33 Dose: 40 mg Documented by: Hydroxyzine Pamoate (Hydroxyzine Deb 25 Mg Capsule) 50 mg PO QHS [facility] Last Admin: 06/02/20 22:31 Dose: 50 mg Documented by: Sodium Chloride () 250 mls @ 15 mls/hr IV .[id number] PRN PRN Reason: Saline Flush Ampicillin Sodium/Sulbactam (Sodium 3 gm/ Sodium Chloride) 112 mls @ 150 mls/hr IV Q8 [facility] Last Infusion: 06/03/20 14:17 Dose: Infused Documented by: Insulin Glargine (Insulin Glargine 100 Units/Ml Pen) 86 units SC BID [facility] Last Admin: 06/03/20 10:32 Dose: 86 u Documented by: Insulin Human Lispro (Insulin Lispro 100 Unit/Ml Insuln.Pen) 0 unit SC ACHS [facility]; Protocol Last Admin: 06/03/20 10:40 Dose: 3 units Documented by: Insulin Human Lispro (Insulin Lispro 100 Unit/Ml Insuln.Pen) [facility] Last Admin: 06/03/20 08:13 Dose: 74 units Documented by: Ipratropium Scott (Ipratropium 0.5 Mg/2.5 Ml Solution) 0.5 mg INHALATION Q4H.RT PRN PRN Reason: SOB &/OR WHEEZING Loratadine (Loratadine 10 Mg Tablet) 5 mg PO QHS [facility] Last Admin: 06/02/20 22:32 Dose: 5 mg Documented by: Losartan Potassium (Losartan Potassium 50 Mg Tablet) 50 mg PO DAILY [facility] Last Admin: 06/03/20 10:31 Dose: 50 mg Documented by: Melatonin (Melatonin 3 Mg Tablet) 3 mg PO QHS PRN PRN PRN Reason: INSOMNIA Ondansetron HCl (Ondansetron 4 Mg/2 Ml Vial) 4 mg IV Q8H PRN PRN PRN Reason: NAUSEA/VOMITING Oxycodone HCl (Oxycodone 5 Mg Tablet) 5 mg PO Q4H PRN PRN Reason: Pain Score 1-10 Last Admin: 06/02/20 22:32 Dose: 5 mg Documented by: Rivaroxaban (Rivaroxaban 20 Mg Tablet) 20 mg PO DAILY [facility] Last Admin: 06/03/20 10:33 Dose: 20 mg Documented by: Sodium Chloride (0.9% Saline Lock 10 Ml Syringe) 10 - 40 ml IV UD PRN PRN Reason: SALINE FLUSH Last Admin: 06/01/20 14:59 Dose: 20 ml Documented by: Trazodone HCl (Trazodone 50 Mg Tablet) 50 mg PO QHS [facility] Last Admin: 06/02/20 22:31 Dose: 50 mg Documented by: Discharge Diet: Low fat/ Low Cholesterol, 2000 mg Sodium Diet, Carb Control Diet Discharge Activity: Return to Normal Activity - Limit excessive physical activity. Okay to ambulate for activities of daily living. Should be in surgical shoe for every step Weight Bearing Status: Weight bearing as tolerated - Surgical shoe right foot Call your doctor if your incision/area has: Increased Pain/ Swelling, Increased Redness, Foul Smelling Discharge, Swelling at the incision site Call your doctor if you observe: Fever of 101 or Higher, Shortness of breath, Dizziness, Fainting spells, Chest pain, Calf discomfort Additional Dressing/Incision Instructions:: Daily dressing change with Santyl to wound bed covered with dry sterile dressing. If applying Greg wrap to prevent dressing from falling off should be applied loosely. Home Medications: Medications to take at Discharge Atorvastatin Calcium [Lipitor] 80 mg PO DAILY 10/05/13 Nitroglycerin (INPATIENT USE) [Nitrostat] 0.4 mg SUBLINGUAL Q5M PRN #25 tab 10/14/13 Albuterol Sulfate [Proventil Hfa] 6.7 gm IH Q4H PRN PRN 07/22/16 hydroxyzine HCl 50 mg tablet 50 mg PO QHS tab 03/14/17 ezetimibe 10 mg tablet 10 mg PO DAILY 07/10/17 losartan 50 mg tablet 50 mg PO DAILY 02/01/18 rivaroxaban 15 mg tablet 20 mg PO DAILY tab 02/25/20 trazodone 50 mg tablet 50 mg PO QHS tab 02/25/20 Carvedilol [Coreg (Beta Tin)] 6.25 mg PO BID 05/31/20 Furosemide [Lasix] 40 mg PO DAILY 05/31/20 Insulin Aspart [Novolog Flexpen] See Protocol SC TIDCM 05/31/20 Insulin Aspart [Novolog Vial] 80 units SQ BID 05/31/20 Levocetirizine Dihydrochloride 5 mg PO QHS 05/31/20 Oxycodone HCl/Acetaminophen [Percocet 5-325] 1 tablet PO Q4H PRN 05/31/20 Umeclidinium Brm/Vilanterol Tr [Anoro Ellipta 62.5-25 Mcg INH] 1 puff PO DAILY 05/31/20 Victoza 1.8 mg SQ DAILY 05/31/20 Amoxicillin/Potassium Clav [Augmentin 875-125 Tablet] 1 each PO BID #80 tablet 06/03/20 Collagenase [Santyl] 1 applic TOPICAL DAILY tube 06/03/20 Doxycycline 100 mg PO BID #80 capsule 06/03/20 Insulin Glargine [Lantus SoloStar Pen] 86 units SC BID pen 06/03/20 Following Prescriptions Were Given to Patient: Amoxicillin/Potassium Clav [Augmentin 875-125 Tablet] 1 each PO BID #80 tablet Transmission Status: Received by [facility] Doxycycline 100 mg PO BID #80 capsule Transmission Status: Received by [facility] Primary Care Physician: Bulmaro Garcia MD [Primary Care Provider] - Please follow up with your Primary Care Physician in: within 2 weeks Please Follow Up With: Charmaine Gutierrez DPM When: Next Sunday at the wound care center at [phone] Disposition: Home Minutes spent on discharge:: 40 Patient Condition:: Stable Medical Necessity - Tobacco Use Smoking Status: Former smoker Tobacco Use: Cigarettes Meaningful Use Info Meaningful Use Diagnoses (Choose all that apply): None applicable Inpatient E&M: [id number] Disch Hosp
--- NOTE | 2020-06-04 14:23 | CASEMGMT ---
RN CM Discharge Follow Up Phone Call: DEANNEE: Lester Strata: 3 Call Date: 06.04.20 Discharge Date: 06.03.20 Time of Call: 1425 Duration: <1 min Admitting Dx: cellulitis failed outpt treatment RN LUZ attempted to complete follow up phone call after recent hospitalization. Received identified vm. Left message for pt with return call back number.
== END 2020-06-03 15:55 | disposition home or self-care (01) | DRG 603 ==
LOC: ED 20:39 → MS3 21:24
PROVIDERS: Nurse Practitioner Family; Podiatrist Foot & Ankle Surgery; Admitting Provider Hospitalist; Emergency Provider Emergency Medicine; PCP Family Medicine; Visit Provider Internal Medicine
DX: L03.115 Cellulitis of right lower limb (principal); E87.2 Acidosis; M86.171 Other acute osteomyelitis, right ankle and foot; E11.621 Type 2 diabetes mellitus with foot ulcer; L97.512 Non-pressure chronic ulcer of other part of right foot with fat layer exposed; J44.9 Chronic obstructive pulmonary disease, unspecified; E78.5 Hyperlipidemia, unspecified; E11.51 Type 2 diabetes mellitus with diabetic peripheral angiopathy without gangrene; E11.22 Type 2 diabetes mellitus with diabetic chronic kidney disease; I12.9 Hypertensive chronic kidney disease with stage 1 through stage 4 chronic kidney disease, or unspecified chronic kidney disease; N18.9 Chronic kidney disease, unspecified; I25.5 Ischemic cardiomyopathy; E11.42 Type 2 diabetes mellitus with diabetic polyneuropathy; I25.10 Atherosclerotic heart disease of native coronary artery without angina pectoris; B96.20 Unspecified Escherichia coli [E. coli] as the cause of diseases classified elsewhere; Z86.718 Personal history of other venous thrombosis and embolism; Z79.01 Long term (current) use of anticoagulants; Z95.810 Presence of automatic (implantable) cardiac defibrillator; Z95.5 Presence of coronary angioplasty implant and graft; Z95.1 Presence of aortocoronary bypass graft; I25.2 Old myocardial infarction; Z87.891 Personal history of nicotine dependence; I70.0 Atherosclerosis of aorta; B95.4 Other streptococcus as the cause of diseases classified elsewhere; M84.474G Pathological fracture, right foot, subsequent encounter for fracture with delayed healing
CPT/HCPCS: 36415; 73630; 73718; 75635; 80048; 80053; 82962; 83605; 85025; 85652; 86140; 87040; 87070; 87075; 87077; 87186; 87205; 87640; 93923; 93971; 94640; 97802; 99284; 99406; J7030; J7040; J7050; Q9967; A4216; J0295

== ENCOUNTER 2020-06-15 08:30 | Outpatient (RCR) | payer MEDICARE, MEDICAID, SELFPAY ==
[2020-05-31 22:33] VITALS: BMI 31.9
[2020-06-08 08:16] VITALS: BP 124/64; PULSE 76; RESP 18; TEMP 35.5; BMI 31.6
--- NOTE | 2020-06-08 12:28 | PCM.WC.HP ---
(1) Non-pressure chronic ulcer of other part of left foot limited to breakdown of skin Status: Acute Code(s): L97.521 - Non-pressure chronic ulcer of other part of left foot limited to breakdown of skin (2) Osteomyelitis Status: Acute Code(s): M86.9 - Osteomyelitis, unspecified (3) Cellulitis of right foot Status: Acute Code(s): L03.115 - Cellulitis of right lower limb (4) PAD (peripheral artery disease) Status: Chronic Code(s): I73.9 - Peripheral vascular disease, unspecified (5) Diabetes mellitus type 2, controlled, with complications Status: Chronic Code(s): E11.8 - Type 2 diabetes mellitus with unspecified complications History of Present Illness Date of Service: 06/08/20 Chief Complaint: Ulceration right hallux. Osteomyelitis right hallux distal phalanx. Cellulitis right hallux. Peripheral vascular disease History of Wound: The patient is a 64 year old M who presents for worsening right foot cellulitis. Patient has significant medical history including diabetes with neuropathy and peripheral vascular disease and psoriasis. Patient was noted to have ulceration after a biopsy of a suspicious lesion to his right hallux failed to heal. Patient was noted to have worsening of ulceration site which sentences be admitted to the hospital per further work-up after failing a course of oral doxycycline. Patient was admitted on 05/31/2020 to [facility]. Patient had cultures obtained which grew E. coli, strep anginosus, Enterococcus faecalis, prevotella disiens and prevotella bivia. Infectious disease was consulted and Dr. Mast had patient discharged on po doxy and augmentin for 6 week course. Patient had an MRI obtained of his right foot which demonstrated cellulitis the medial first digit with osteomyelitis of the dorsal and medial aspect of the base of the first distal phalanx. Dr. Peacock, vascular surgery, was also consulted while in the hospital. Repeat blood flow studies were obtained including L AAS and CTA. Patient is to follow with Dr. Peacock as an outpatient for angioplasty. Patient was discharged from the hospital with instructions to follow-up with the wound care center for continued wound care Past Medical History Past Medical History: Chronic Problems (Last Reviewed 06/02/20 @ 12:[address] Elyo Peacock MD) PAD (peripheral artery disease) (Chronic) Diabetes mellitus type 2, controlled, with complications (Chronic) COPD (chronic obstructive pulmonary disease) (Chronic) Diabetic neuropathy associated with type 2 diabetes mellitus (Chronic) History of implantable cardiac defibrillator (ICD) (Chronic 02/07/18) 08/2007 implanted, Gen Change 01/2018 Atherosclerosis of [place] coronary artery of [place] heart without angina pectoris (Chronic) Old inferior wall myocardial infarction (Chronic 02/27/05) Ischemic cardiomyopathy (Chronic) Non-rheumatic aortic stenosis (Chronic) Secondary pulmonary arterial hypertension (Chronic) NSVT (nonsustained ventricular tachycardia) (Chronic) Essential (primary) hypertension (Chronic) Hyperlipidemia (Chronic) Claudication (Chronic) Surgical History: coronary bypass surgery, pacemaker implantation Allergies/Adverse Reactions: Allergies vancomycin Adverse Reaction (Verified 06/08/20 08:39) Rash Red Man Syndrome Home Medications: Ambulatory Orders Medication Instructions Recorded Atorvastatin Calcium [Lipitor] 80 mg PO DAILY 10/05/13 Nitroglycerin (INPATIENT USE) 0.4 mg SUBLINGUAL Q5M PRN #25 tab 10/14/13 [Nitrostat] Albuterol Sulfate [Proventil Hfa] 6.7 gm IH Q4H PRN PRN 07/22/16 hydroxyzine HCl 50 mg tablet 50 mg PO QHS tab 03/14/17 ezetimibe 10 mg tablet 10 mg PO DAILY 07/10/17 losartan 50 mg tablet 50 mg PO DAILY 02/01/18 rivaroxaban 15 mg tablet 20 mg PO DAILY tab 02/25/20 trazodone 50 mg tablet 50 mg PO QHS tab 02/25/20 Carvedilol [Coreg (Beta Tin)] 6.25 mg PO BID 05/31/20 Furosemide [Lasix] 40 mg PO DAILY 05/31/20 Insulin Aspart [Novolog Flexpen] See Protocol SC TIDCM 05/31/20 Insulin Aspart [Novolog Vial] 80 units SQ BID 05/31/20 Levocetirizine Dihydrochloride 5 mg PO QHS 05/31/20 Oxycodone HCl/Acetaminophen 1 tablet PO Q4H PRN 05/31/20 [Percocet 5-325] Umeclidinium Brm/Vilanterol Tr 1 puff PO DAILY 05/31/20 [Anoro Ellipta 62.5-25 Mcg INH] Victoza 1.8 mg SQ DAILY 05/31/20 Amoxicillin/Potassium Clav 1 each PO BID #80 tablet 06/03/20 [Augmentin 875-125 Tablet] Collagenase [Santyl] 1 applic TOPICAL DAILY tube 06/03/20 Doxycycline 100 mg PO BID #80 capsule 06/03/20 Insulin Glargine [Lantus SoloStar 86 units SC BID pen 06/03/20 Pen] - Family History Maternal Family History: Family History (Last Reviewed 06/02/20 @ 12:[address] Eloy Peacock MD) Father CAD (coronary artery disease) Diabetes Brother CAD (coronary artery disease) Diabetes Mother Cancer Brother Diabetes No pertinent history Smoking Status: Former smoker Review of Systems Constitutional: Denies: Chills, Fever HEENT: Denies: Difficulty Hearing Cardiovascular: Denies: Chest Pain, Edema Respiratory: Denies: Cough, Shortness of Breath Gastrointestinal: Denies: Nausea, Vomiting Musculoskeletal: Denies: Leg Pain Skin: Reports: Wounds - Right hallux Neurological: Reports: Numbness, Tingling Hematologic/ Lymphatic: Reports: - - Bad blood flow Subjective: Patient seen and examined resting comfortably. Patient denies any new pedal complaints. Patient denies any nausea, fever, chills, chest pain, shortness of breath, cough, streaking, purulence, vomiting. - Physical Exam Vital Signs Temp Pulse Resp BP 96 F L 76 18 124/64 H 06/08/20 08:16 06/08/20 08:16 06/08/20 08:16 06/08/20 08:16 General: Alert, Oriented x3 HEENT: Atraumatic Abdomen: Obese Extremities: No clubbing, No cyanosis, No edema, Capillary Refill Less than 3 Seconds, No Calf Tenderness, Diminished Peripheral Pulses Skin: Ulcer/ Wound - Right medial hallux. No malodor, purulence, probing to bone, streaking, fluctuation, crepitus. Erythema is improved. Mild maceration noted to periulcerative area. Skin is atrophic and hairless. Largely fibrotic base base, - - Psoriatic lesions noted bilateral lower extremities without interval change Wound Measurements and Assessment WC - Nurse 1 - General Ulcer Measurement Start: 06/08/20 08:16 Freq: Status: Active Protocol: Activity Type Activity Date Activity User E-Sign Co-Sign Detail Recorded Client Recorded Date Recorded By Document 06/08/20 08:16 [facility] [id number] 06/08/20 08:36 [facility] 06/08/20 08:16 Wound Center Nurse 1 [Ulcer Assessment] #1- R LATERAL GR TOE -Combined with other wound No -Current Size (cm) - Length 0.9 -Current Size (cm) - Width 1.1 -Current Size (cm) - Depth 0.3 -Total Square Cm 0.99 -Date of Last Picture (Recall this 06/08/20 field) -Photo Taken Yes -Epithelialization None Present -Tunneling No -Undermining/Tunneling No -Circular Undermining No -Exudate Amt Small -Exudate Type Serous -Wound Margin Distinct, Outline Attached -Granulation Amt None Present (0 %) -Slough/Fibrin Yes -Necrosis Amt Large (67-100%) -Necrotic Tissue Type Adherent Slough -Texture (Chantelle-wound Skin Appearance) Assessed, Scarring -Moisture (Chantelle-wound Skin Appearance Assessed, ) Maceration,Dry/ Scaly -Color (Chantelle-wound Skin Appearance) Assessed, Erythema,Palor -Temperature (Chantelle-wound Skin No Abnormality Appearance) (Pt Warm) -Tenderness on Palpation (Chantelle-wound No Skin Appearance) -Ulcer Cleansing SOAPY WATER -Foul Odor after Cleansing No -Anesthetic Used 4% Lidocaine Solution [Edema Assessment] -Right Calf (cm) 34.4 -Right Ankle (cm) 20.5 -Left Calf (cm) 33.5 -Left Ankle (cm) 19.9 WC - Nurse 2 - General Ulcer CM Notes Start: 06/08/20 08:16 Freq: Status: Active Protocol: Activity Type Activity Date Activity User E-Sign Co-Sign Detail Recorded Client Recorded Date Recorded By Document 06/08/20 08:49 [facility] [id number] 06/08/20 08:57 [facility] 06/08/20 08:49 Wound Center Nurse 2 [Procedure/Treatment] #1- R LATERAL GR TOE -Time 08:49 -Correct Patient Yes -Correct Side, Site, Position Yes -Correct Procedure Yes -Procedure Performed Yes -Type of Procedure Debridement -Clinical Debridement Subcutaneous -Tissue Removed Subcutaneous -Post Debridement (cm) - Length 1 -Post Debridement (cm) - Width 1.2 -Post Debridement (cm) - Depth 0.2 -Total Square (Post) (cm) 1.2 -Area of Debridement (cm) - Length 1 -Area of Debridement (cm) - Width 1.2 -Total Square (Area) (cm) 1.2 -Tunneling No -Undermining/Tunneling No -Circular Undermining No -Wound/Ulcer Outcome Not Healed -Ulcer Cleansing Rinsed/ Irrigated with Saline -Foul Odor after Cleansing No -Bioengineered Tissue No -Bleeding Controlled with Pressure -Offloading Yes -Type of Offloading Surgical Shoe -Treatment Response Procedure Tolerated Well -Debridement - Subq, 1st 20sq cm Yes [See Physician Procedure note for Specifics] Pain Scale: 0-10 Numeric [Pain] -Is Patient Pain Free? Yes - Nurse 3 - General Ulcer D/C NN Start: 06/08/20 08:16 Freq: Status: Active Protocol: Activity Type Activity Date Activity User E-Sign Co-Sign Detail Recorded Client Recorded Date Recorded By Document 06/08/20 09:07 [facility] [id number] 06/08/20 09:08 [facility] 06/08/20 09:07 Wound Care Nurse 3 [Wound Dressing] #1- R LATERAL GR TOE -Ulcer Cleansing Rinsed/ Irrigated with Saline -Primary Dressing Applied Other -Other Dressing HYDROGEL, BETADINE TO CHANTELLE WOUND -Primary Dressing Covered/Secured Dry Gauze, with Secured with Tape [Compression Applied] Right -Compression Wrap Greg Wrap -Other GREG WRAP TO SECURE [Post Procedure Tolerated] -Treatment Response Procedure Tolerated Well Pain Scale: 0-10 Numeric [Pain] -Is Patient Pain Free? Yes - Visit Discharge [Visit Discharge Information] -Discharge Condition Stable -Ambulatory Status Ambulatory -Transportation Private Auto Musculoskeletal: No Tenderness to Palpation of Joints or Extremities Neurological: - - Absent epicritic sensation Psych/Mental Status: Normal Affect, Appropriate Debridement Note Post-Debridement Measurements/Treatment - Nurse 2 - General Ulcer CM Notes Start: 06/08/20 08:16 Freq: Status: Active Protocol: Activity Type Activity Date Activity User E-Sign Co-Sign Detail Recorded Client Recorded Date Recorded By Document 06/08/20 08:49 [id number] 06/08/20 08:57 [facility] 06/08/20 08:49 Wound Center Nurse 2 #1- R LATERAL GR TOE -Time 08:49 -Correct Patient Yes -Correct Side, Site, Position Yes -Correct Procedure Yes -Procedure Performed Yes -Type of Procedure Debridement -Clinical Debridement Subcutaneous -Tissue Removed Subcutaneous -Post Debridement (cm) - Length 1 -Post Debridement (cm) - Width 1.2 -Post Debridement (cm) - Depth 0.2 -Total Square (Post) (cm) 1.2 -Area of Debridement (cm) - Length 1 -Area of Debridement (cm) - Width 1.2 -Total Square (Area) (cm) 1.2 -Tunneling No -Undermining/Tunneling No -Circular Undermining No -Wound/Ulcer Outcome Not Healed -Ulcer Cleansing Rinsed/ Irrigated with Saline -Foul Odor after Cleansing No -Bioengineered Tissue No -Bleeding Controlled with Pressure -Offloading Yes -Type of Offloading Surgical Shoe -Treatment Response Procedure Tolerated Well -Debridement - Subq, 1st 20sq cm Yes Pain Scale: 0-10 Numeric Is Patient Pain Free? Yes - Nurse 3 - General Ulcer D/C NN Start: 06/08/20 08:16 Freq: Status: Active Protocol: Activity Type Activity Date Activity User E-Sign Co-Sign Detail Recorded Client Recorded Date Recorded By Document 06/08/20 09:07 [facility] [id number] 06/08/20 09:08 [facility] 06/08/20 09:07 Wound Care Nurse 3 #1- R LATERAL GR TOE -Ulcer Cleansing Rinsed/ Irrigated with Saline -Primary Dressing Applied Other -Other Dressing HYDROGEL, BETADINE TO CHANTELLE WOUND -Primary Dressing Covered/Secured with Dry Gauze, Secured with Tape Right -Compression Wrap Greg Wrap -Other GREG WRAP TO SECURE Treatment Response Procedure Tolerated Well Pain Scale: 0-10 Numeric Is Patient Pain Free? Yes - Visit Discharge Discharge Condition Stable Ambulatory Status Ambulatory Transportation Private Auto Wound debrided: Hallux Laterality: Right Wound Grade/Stage: Li 3 Type of Debridement: Excisional debridement Anesthesia Used: 4% Lidocaine Solution Depth: in the subcutaneous layer Percentage of wound debrided: 100 Instrument Used: 3mm curette Tissue Removed: Tissue removed includes fibrous, devitalized, biofilm, and slough tissue Severity: Fat Layer Exposed Amount of bleeding with debridement: Mild Bleeding Controlled with: Pressure Patient tolerated procedure well Assessment/Plan Active Problems (Last Reviewed 06/02/20 @ 12:[address] Eloy Peacock MD) PAD (peripheral artery disease) (Chronic) Non-pressure chronic ulcer of other part of left foot limited to breakdown of skin (Acute) Osteomyelitis (Acute) Diabetes mellitus type 2, controlled, with complications (Chronic) Cellulitis of right foot (Acute) Assessment: Right hallux ulceration-Li 3. Osteomyelitis right hallux distal phalanx. Right hallux cellulitis. PVD. Diabetes with neuropathy. Psoriasis Plan: Patient seen and examined. Patient noted to have stable wound to the right hallux. There is noted less edema and erythema compared to when seen in the hospital last. Patient is to continue using Santyl daily dressing changes. Patient relates that he has wound supplies. Patient to continue antibiotics per infectious disease. Patient is a call Dr. Peacock's office to schedule follow-up appointment for intervention. Patient presents today in surgical shoe for offloading. The surgical shoe was further modified with 2 layers of padding in order to offload the hallux with cut out. Patient educated on the importance of proper wound care, smoking cessation, offloading, proper diet with good nutrition, blood sugar control and their impact on wound healing. After verbal consent was obtained ulceration was sharply debrided without incident. All questions answered. Patient is to follow-up in 1 week. This note was generated with [employer] dictation software. It may contain incorrect words, spelling, and punctuation that were not noted in checking the note before signing.
[2020-06-15 08:46] VITALS: BMI 31.6
[2020-06-15 08:51] VITALS: BP 124/51; PULSE 77; RESP 16; TEMP 36.6
--- NOTE | 2020-06-15 16:19 | PN.PCM_ITS ---
History of Present Illness Date of Service: 06/15/20 Chief Complaint: Ulceration right hallux Osteomyelitis right hallux distal phalanx Cellulitis right hallux Peripheral vascular disease History of Wound: The patient is a 64 year old M who presents for worsening right foot cellulitis. Patient has significant medical history including diabetes with neuropathy and peripheral vascular disease and psoriasis. Patient was noted to have ulceration after a biopsy of a suspicious lesion to his right hallux failed to heal. Patient was noted to have worsening of ulceration site which sent him to be admitted to the hospital per further work-up after failing a course of oral doxycycline. Patient was admitted on 05/31/2020 to [facility]. Patient had cultures obtained which grew E. coli, strep anginosus, Enterococcus faecalis, prevotella disiens and prevotella bivia. Infectious disease was consulted and Dr. Peoples had patient discharged on po doxy and augmentin for 6 week course. Patient had an MRI obtained of his right foot which demonstrated cellulitis the medial first digit with osteomyelitis of the dorsal and medial aspect of the base of the first distal phalanx. Dr. Peacock, vascular surgery, was also consulted while in the hospital. Repeat blood flow studies were obtained including L AAS and CTA. Patient is to follow with Dr. Peacock as an outpatient for angioplasty. Patient was discharged from the hospital with instructions to follow-up with the wound care center for continued wound care Patient has been unable to get a hold of Dr. Peacock's office for follow-up care. Patient continues to take antibiotics Subjective Subjective: Patient is resting comfortably and denies any new pedal complains. Patient denies any nausea, fever, vomiting, chills, chest pain, shortness of xena ath, streaking, or purulence Objective Data Objective Data Vital Signs: Vital Signs Temp Pulse Resp BP 98 F 77 16 124/51 H 06/15/20 08:51 06/15/20 08:51 06/15/20 08:51 06/15/20 08:51 Oxygen Delivery Method Room Air Weight: 117.934 kg Body Mass Index (BMI) 31.6 Exam Physical Exam Const alert and no apparent distress General Appearance: cooperative and comfortable HEENT Head and Scalp: atraumatic Lymph Lymphatic: no lymphedema noted Resp normal respiratory effort Effort and Inspection: able to speak in complete sentences Cardio Peripheral Pulses: posterior tibial pulses present bilateral diminished and dorsalis pedis pulses present bilateral diminished Extremity normal capillary refill, no calf tenderness and no pedal edema General Extremity: no tenderness to palpation of joints or extremities; Negative for clubbing or cyanosis Peripheral Pulses: Yes posterior tibial pulses present right other (nonpalpable) and left 1+ and dorsalis pedis pulses present right other (nonpalpable) and left 1+ Skin General Skin Exam: atrophy and dry skin; Negative for ecchymosis, erythema, eschar or pallor Wounds: wounds noted Wound Narrative: ulcers noted to right hallux No malodor, purulence, probing to bone, streaking, fluctuation, crepitus. Skin is atrophic and hairless. More granular base. Less erthema/edema noted. Capsule is exposed. Psoriasis rash noted to bilateral lower extremities Neuro Gait (Neuro): normal gait Sensory Exam: extremities light-touch: decreased Motor Exam: strength 5/5 throughout Psych Appearance: appropriate Attitude: calm Nursing Assessment and Debridement Post-Debridement Measurements and Additional Note: Post-Debridement Measurements/Treatment - Nurse 1 - General Ulcer Assessment Start: 06/08/20 08:16 Freq: Status: Active Protocol: WC.LOWEXT Activity Type Activity Date Activity User E-Sign Co-Sign Detail Recorded Client Recorded Date Recorded By Document 06/15/20 08:46 [facility] [id number] 06/15/20 08:47 [facility] 06/15/20 08:46 - Today's Visit Information Type of service Follow-up Visit (Physician/PRODUCTION COST ESTIMATOR ) Arrival Mode Ambulatory Transfer Assistance None Patient Identification Verified (Name & Yes ) Patient Requires Transmission-Based No Precautions Height and Weight Body Mass Index (BMI) 31.6 BMI Classification Obese History Since Last Visit- (Skip if this is Patient's initial visit) Have you changed medications since your No last visit? Any new allergies or adverse reactions No Had a fall/change in ADL's that may No increase risk of falls Signs or symptoms of abuse and/or No neglect since last visit Have you been in the hospital since your No last visit? Has dressing in place as prescribed Yes Has compression in place as prescribed Yes Has offloadiing in place as prescribed N/A Experienced any changes in pain level or No management Left Footwear Regular Shoe Right Footwear Surgical Shoe with pressure relief insole Pain Scale: 0-10 Numeric Is Patient Pain Free? Yes - Nurse 1 - General Ulcer Measurement Start: 06/08/20 08:16 Freq: Status: Active Protocol: Activity Type Activity Date Activity User E-Sign Co-Sign Detail Recorded Client Recorded Date Recorded By Document 06/15/20 08:46 [facility] [id number] 06/15/20 08:47 [facility] 06/15/20 08:46 Wound Center Nurse 1 #1- R LATERAL GR TOE -Combined with other wound No -Current Size (cm) - Length 1.1 -Current Size (cm) - Width 1 -Current Size (cm) - Depth 0.2 -Total Square Cm 1.1 -Epithelialization None Present -Tunneling No -Undermining/Tunneling No -Circular Undermining No -Exudate Amt Medium -Exudate Type Serosanguineous -Wound Margin Distinct, Outline Attached -Granulation Amt Small (1-33%) -Granulation Quality Red -Slough/Fibrin Yes -Necrosis Amt Medium (34-66%) -Necrotic Tissue Type Adherent Slough -Texture (Chantelle-wound Skin Appearance) Assessed, Localized Edema ,Scarring -Moisture (Chantelle-wound Skin Appearance) Assessed,Dry/ Scaly -Color (Chantelle-wound Skin Appearance) Assessed, Erythema -Temperature (Chantelle-wound Skin No Abnormality Appearance) (Pt Warm) -Tenderness on Palpation (Chantelle-wound No Skin Appearance) -Ulcer Cleansing Rinsed/ Irrigated with Saline -Foul Odor after Cleansing No -Anesthetic Used 4% Lidocaine Solution - Nurse 2 - General Ulcer CM Notes Start: 06/08/20 08:16 Freq: Status: Active Protocol: Activity Type Activity Date Activity User E-Sign Co-Sign Detail Recorded Client Recorded Date Recorded By Document 06/15/20 08:42 MW [id number] 06/15/20 08:46 MW 06/15/20 08:42 Wound Center Nurse 2 -Time 08:42 -Correct Patient Yes -Correct Side, Site, Position Yes -Correct Procedure Yes -Procedure Performed Yes -Type of Procedure Debridement -Clinical Debridement Subcutaneous -Tissue Removed Subcutaneous -Post Debridement (cm) - Length 0.7 -Post Debridement (cm) - Width 1.2 -Post Debridement (cm) - Depth 0.2 -Total Square (Post) (cm) 0.84 -Area of Debridement (cm) - Length 0.7 -Area of Debridement (cm) - Width 1.2 -Total Square (Area) (cm) 0.84 -Tunneling No -Undermining/Tunneling No -Circular Undermining No -Wound/Ulcer Outcome Not Healed -Ulcer Cleansing Rinsed/ Irrigated with Saline -Foul Odor after Cleansing No -Bioengineered Tissue No -Bleeding Controlled with Pressure -Offloading No -Treatment Response Procedure Tolerated Well -Debridement - Subq, 1st 20sq cm Yes Pain Scale: 0-10 Numeric Is Patient Pain Free? Yes - Nurse 3 - General Ulcer D/C NN Start: 06/08/20 08:16 Freq: Status: Active Protocol: Activity Type Activity Date Activity User E-Sign Co-Sign Detail Recorded Client Recorded Date Recorded By Document 06/15/20 08:51 REGGIE [id number] 06/15/20 08:51 REGGIE 06/15/20 08:51 Wound Care Nurse 3 #1- R LATERAL GR TOE -Ulcer Cleansing Rinsed/ Irrigated with Saline -Primary Dressing Applied C Hydrogel ($) -Primary Dressing Covered/Secured with Dry Gauze, Secured with Tape Vital Signs Temperature (97.8 F-99.1 F) 98 F Temperature Source Temporal Pulse Rate (60-100) 77 Pulse Location Monitor Respiratory Rate (12-18) 16 Respiratory rate source Observation Oxygen Delivery Method Room Air Blood Pressure (90/60-120/80) 124/51 H Blood Pressure Mean (mm Hg) 75 Source Monitor Position Sitting Blood Pressure Location Left Arm Pain Scale: 0-10 Numeric Is Patient Pain Free? Yes - Visit Discharge Discharge Condition Stable Ambulatory Status Ambulatory Transportation Private Auto Assessment and Debridement #1- R LATERAL GR TOE: Wound Debrided: Right hallux Laterality: Right Wound Grade/Stage: Li 3 Type of Debridement: Excisional debridement Anesthesia Used: 4% Lidocaine Solution Depth: to muscle (Wound is to the level OF what only debrided to subcu) Percentage of Wound Debrided: 100 Instrument Used: 3mm curette Tissue Removed: Tissue removed includes fibrous, devitalized, biofilm, and slough tissue Severity: Fat Layer Exposed Amt of Bleeding w/Debridement: Mild Bleeding Controlled with: Pressure Patient Tolerated Procedure: Patient tolerated procedure well Assessment & Plan Assessment/Plan (1) 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 exposed: Status: Chronic Code(s): L97.512 - 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 exposed (2) Osteomyelitis: Status: Acute Code(s): M86.9 - Osteomyelitis, unspecified Qualifiers: Osteomyelitis type: other acute Osteomyelitis location: foot Latera lity: right Qualified Code(s): M86.171 - Other acute osteomyelitis, right ankle and foot (3) PAD (peripheral artery disease): Status: Chronic Code(s): I73.9 - Peripheral vascular disease, unspecified (4) Cellulitis of right foot: Status: Acute Code(s): L03.115 - Cellulitis of right lower limb (5) Diabetic neuropathy associated with type 2 diabetes mellitus: Status: Chronic Code(s): E11.40 - Type 2 diabetes mellitus with diabetic neuropathy, unspecified Qualifiers: Diabetes mellitus complication detail: diabetic polyneuropathy Qualified Code(s): E11.42 - Type 2 diabetes mellitus with diabetic polyneuropathy Plan: Assessment: Right hallux ulceration-Li 3. Osteomyelitis right hallux distal phalanx. Right hallux cellulitis. PVD. Diabetes with neuropathy. Psoriasis Plan: Patient seen and examined. Patient noted to have improved wound to the right hallux with more granulation tissue noted. There is noted less edema and erythema. Ulceration was sharply debrided after verbal consent was given by patient without incident. Patient is to use hydrogel daily dressing changes. Patient relates that he has wound supplies. Patient to continue antibiotics per infectious disease. Patient is a call Dr. Peacock's office to schedule follow-up appointment for intervention. Patient has been unable to get a hold of Dr. Peacock's office. He states he will she will try again today Patient presents today in surgical shoe for offloading. Patient noted to have appointment at our office this afternoon for picking up of his diabetic shoes. Discussed with patient he should bring his surgical shoe with the offloading pad and made at last visit with him to the office. Patient relates that he was unable to keep the offload pad in the shoe as it is only taped down and he did not feel secure with it in. Discussed that he brought to the office that they could glue it down for him so it would be more stable. Patient educated on the importance of proper wound care, smoking cessation, offloading, proper diet with good nutrition, blood sugar control and their impact on wound healing. All questions answered. Patient is to follow-up in 1 week. This note was generated with [employer] software. It may contain incorrect words, spelling, and punctuation that were not noted in checking the note before signing.
--- NOTE | 2020-06-17 13:43 | PCM.WC.PN ---
History of Present Illness Date of Service: 06/17/20 Chief Complaint: Ulceration right hallux Osteomyelitis right hallux distal phalanx Cellulitis right hallux Peripheral vascular disease History of Wound: The patient is a 64 year old M who presents for worsening right foot cellulitis. Patient has significant medical history including diabetes with neuropathy and peripheral vascular disease and psoriasis. Patient was noted to have ulceration after a biopsy of a suspicious lesion to his right hallux failed to heal. Patient was noted to have worsening of ulceration site which sentences be admitted to the hospital per further work-up after failing a course of oral doxycycline. Patient was admitted on 05/31/2020 to [facility]. Patient had cultures obtained which grew E. coli, strep anginosus, Enterococcus faecalis, prevotella disiens and prevotella bivia. Infectious disease was consulted and Dr. Mast had patient discharged on po doxy and augmentin for 6 week course Patient had an MRI obtained of his right foot which demonstrated cellulitis the medial first digit with osteomyelitis of the dorsal and medial aspect of the base of the first distal phalanx. Dr. Peacock, vascular surgery, was also consulted while in the hospital. Repeat blood flow studies were obtained including L AAS and CTA. Patient is to follow with Dr. Peacock as an outpatient for angioplasty. Patient was discharged from the hospital with instructions to follow-up with the wound care center for continued wound care Subjective Subjective: Patient is resting comfortably and denies any new pedal complains. Patient denies any nausea, fever, vomiting, chills, chest pain, shortness of breath, streaking, or purulence Objective Data Objective Data Vital Signs: Vital Signs Temp Pulse Resp BP 98 F 77 16 124/51 H 06/15/20 08:51 06/15/20 08:51 06/15/20 08:51 06/15/20 08:51 Oxygen Delivery Method Room Air Weight: 117.934 kg Body Mass Index (BMI) 31.6 Exam Physical Exam Const alert and no apparent distress General Appearance: cooperative and comfortable HEENT Head and Scalp: atraumatic Resp normal respiratory effort Extremity normal capillary refill and no calf tenderness General Extremity: pulses abnormal; Negative for clubbing, cyanosis or edema Right Lower Extremity: foot and digits Positive for neurovascular exam (decreased epicritic sensation noted) Skin Wounds: wounds noted drainage serosanguineous and no odor Hair: other decreased hair growth noted to lower extremities Psych Appearance: appropriate Attitude: calm Assessment and Debridement #1- R LATERAL GR TOE: Post-Debridement Measurements/Treatment - Nurse 1 - General Ulcer Assessment Start: 06/08/20 08:16 Freq: Status: Active Protocol: MAHSA Activity Type Activity Date Activity User E-Sign Co-Sign Detail Recorded Client Recorded Date Recorded By Document 06/15/20 08:46 [facility] [id number] 06/15/20 08:47 [facility] 06/15/20 08:46 - Today's Visit Information Type of service Follow-up Visit (Physician/BOOKMOBILE LIBRARIAN ) Arrival Mode Ambulatory Transfer Assistance None Patient Identification Verified (Name & Yes ) Patient Requires Transmission-Based No Precautions Height and Weight Body Mass Index (BMI) 31.6 BMI Classification Obese History Since Last Visit- (Skip if this is Patient's initial visit) Have you changed medications since your No last visit? Any new allergies or adverse reactions No Had a fall/change in ADL's that may No increase risk of falls Signs or symptoms of abuse and/or No neglect since last visit Have you been in the hospital since your No last visit? Has dressing in place as prescribed Yes Has compression in place as prescribed Yes Has offloadiing in place as prescribed N/A Experienced any changes in pain level or No management Left Footwear Regular Shoe Right Footwear Surgical Shoe with pressure relief insole Pain Scale: 0-10 Numeric Is Patient Pain Free? Yes - Nurse 2 - General Ulcer CM Notes Start: 06/08/20 08:16 Freq: Status: Active Protocol: Activity Type Activity Date Activity User E-Sign Co-Sign Detail Recorded Client Recorded Date Recorded By Document 06/15/20 08:42 [id number] 06/15/20 08:46 MW 06/15/20 08:42 Wound Center Nurse 2 #1- R LATERAL GR TOE -Time 08:42 -Correct Patient Yes -Correct Side, Site, Position Yes -Correct Procedure Yes -Procedure Performed Yes -Type of Procedure Debridement -Clinical Debridement Subcutaneous -Tissue Removed Subcutaneous -Post Debridement (cm) - Length 0.7 -Post Debridement (cm) - Width 1.2 -Post Debridement (cm) - Depth 0.2 -Total Square (Post) (cm) 0.84 -Area of Debridement (cm) - Length 0.7 -Area of Debridement (cm) - Width 1.2 -Total Square (Area) (cm) 0.84 -Tunneling No -Undermining/Tunneling No -Circular Undermining No -Wound/Ulcer Outcome Not Healed -Ulcer Cleansing Rinsed/ Irrigated with Saline -Foul Odor after Cleansing No -Bioengineered Tissue No -Bleeding Controlled with Pressure -Offloading No -Treatment Response Procedure Tolerated Well -Debridement - Subq, 1st 20sq cm Yes Pain Scale: 0-10 Numeric Is Patient Pain Free? Yes - Nurse 3 - General Ulcer D/C NN Start: 06/08/20 08:16 Freq: Status: Active Protocol: Activity Type Activity Date Activity User E-Sign Co-Sign Detail Recorded Client Recorded Date Recorded By Document 06/15/20 08:51 REGGIE [id number] 06/15/20 08:51 REGGIE 06/15/20 08:51 Wound Care Nurse 3 #1- R LATERAL GR TOE -Ulcer Cleansing Rinsed/ Irrigated with Saline -Primary Dressing Applied C Hydrogel ($) -Primary Dressing Covered/Secured with Dry Gauze, Secured with Tape Vital Signs Temperature (97.8 F-99.1 F) 98 F Temperature Source Temporal Pulse Rate (60-100) 77 Pulse Location Monitor Respiratory Rate (12-18) 16 Respiratory rate source Observation Oxygen Delivery Method Room Air Blood Pressure (90/60-120/80) 124/51 H Blood Pressure Mean (mm Hg) 75 Source Monitor Position Sitting Blood Pressure Location Left Arm Pain Scale: 0-10 Numeric Is Patient Pain Free? Yes WC - Visit Discharge Discharge Condition Stable Ambulatory Status Ambulatory Transportation Private Auto
== END 2020-06-18 23:59 ==
LOC: WC 08:30
PROVIDERS: PCP Family Medicine; Visit Provider Podiatrist Foot & Ankle Surgery
DX: E11.621 Type 2 diabetes mellitus with foot ulcer (principal); L97.512 Non-pressure chronic ulcer of other part of right foot with fat layer exposed; M86.9 Osteomyelitis, unspecified; L03.115 Cellulitis of right lower limb; I73.9 Peripheral vascular disease, unspecified; E11.51 Type 2 diabetes mellitus with diabetic peripheral angiopathy without gangrene; L40.9 Psoriasis, unspecified; J44.9 Chronic obstructive pulmonary disease, unspecified; E78.5 Hyperlipidemia, unspecified; E11.42 Type 2 diabetes mellitus with diabetic polyneuropathy; I10 Essential (primary) hypertension; I25.10 Atherosclerotic heart disease of native coronary artery without angina pectoris; Z95.810 Presence of automatic (implantable) cardiac defibrillator; I27.21 Secondary pulmonary arterial hypertension; Z79.01 Long term (current) use of anticoagulants; Z79.4 Long term (current) use of insulin; Z82.49 Family history of ischemic heart disease and other diseases of the circulatory system; Z83.3 Family history of diabetes mellitus; Z87.891 Personal history of nicotine dependence
CPT/HCPCS: 11042; 99213; G0463

== ENCOUNTER 2020-07-06 08:02 | Day surgery (SDC) | payer MEDICARE, MEDICAID, SELFPAY ==
[2020-06-29 08:16] VITALS: BMI 31.6
[2020-07-06 08:23] LABS: Hematocrit 44.9 % (40-54); Hemoglobin 14.5 g/dL (13.0-16.5); Mean Corp Hgb Conc 32.3 g/dL (32-36); Mean Corpuscular Volume 89.8 fL (80-94); Platelet Count 144 K/mm3 (150-450); RBC Distribution Width CV 14.2 % (11.6-14.6); RBC Distribution Width SD 46.5 fl (35.1-43.9)
[2020-07-06 08:31] LABS: Albumin, Serum 3.5 g/dL (3.2-5.0); BUN 24 mg/dL (7-18); BUN/Creat Ratio 20.7 RATIO (10-20); Calcium,Total 8.9 mg/dL (8.5-10.1); Chloride 104 mmol/L (98-107); Creatinine, Serum 1.16 mg/dL (0.70-1.30); EST Glomerular Filtration Rate 67 mL/min (>60); Est Glom Filt Rate - Afr Amer 81 mL/min (>60); Estimated Creatinine Clearance 79.89 ml/min; Glucose 187 mg/dL (74-106); Phosphorus 3.1 mg/dL (2.5-4.9); Potassium 4.4 mmol/L (3.5-5.1); Sodium Level 138 mmol/L (136-145)
--- NOTE | 2020-07-06 11:54 | OP.PCM_ITS ---
Problems Associated Problem List Diagnoses (1) Claudication: Report of Operation Date of Procedure: 07/06/20 Pre-Operative Diagnosis: PAD with right great toe ulcer Post-Operative Diagnosis: This same Surgery/Procedure Performed:: 1. Ultrasound-guided access retrograde left brachial artery. 2. Aortogram with bilateral iliofemoral angiogram. 3. Balloon angioplasty the right external iliac artery through the common fe moral and into the femoral with a 6 x 120 balloon for 2 different inflations. 4. Closure with manual pressure Surgeon: Eloy Peacock Type of Anesthesia: IV Sedation Description of Procedure: Patient brought to the Computer Equipment Repairer. Underwent appropriate timeout consent. Underwent sedation. Prepped and draped in a s terile fashion. We did ultrasound-guided access retrograde left brachial artery. Put a Glidewire and then a 5 [place] sheath. Get 5000 units of heparin. We got the wire down the descending thoracic aorta and switch to a stiff Glidewire. Brought in a long 6 [place] sheath. We then did an angiogram from the aorta. This showed the bilateral common iliac arteries were patent. Left iliac to common femoral patent with some stenosis distally. The right proximal external iliac artery with moderate stenosis. The right common femoral artery with moderate focal stenosis. Proximal profunda and femoral were patent with good flow. We got the wire through the common femoral artery stenosis. Of note it was getting held up significantly confirming moderate to severe stenosis in this segment. We then balloon from the femoral artery through the common femoral and into the external iliac with a 6 x 120 balloon for over 3 minutes. We then pulled this back and balloon the rest of the external leg artery to the common iliac for over 2 minutes. Completion was much improved with better flow through this entire area. We then removed the sheath put a shorter sheath and then held pressure with good hemostasis after given 40 of protamine. Patient brought to recovery stable condition. Sedation: This 65-year-old gentleman underwent moderate sedation given by Dr. Eloy Peacock. He was monitored EKG blood pressure and pulse ox for over the 30 minutes of the procedure. See the EMR for the complete record. Complications None
== END 2020-07-06 15:35 | disposition home or self-care (01) ==
PROVIDERS: PCP Family Medicine; Referring Provider Surgery Vascular Surgery; Visit Provider Surgery Vascular Surgery
DX: I70.213 Atherosclerosis of native arteries of extremities with intermittent claudication, bilateral legs (principal); L97.519 Non-pressure chronic ulcer of other part of right foot with unspecified severity; I11.9 Hypertensive heart disease without heart failure; E78.00 Pure hypercholesterolemia, unspecified; E11.59 Type 2 diabetes mellitus with other circulatory complications; F17.200 Nicotine dependence, unspecified, uncomplicated; I25.2 Old myocardial infarction
CPT/HCPCS: 36245; 36415; 37220; 75710; 76937; 80069; 85027; 99152; 99153; J7040; Q9967; C1725; C1769; C1887; C1894

== ENCOUNTER 2020-07-13 08:15 | Outpatient (RCR) | payer MEDICARE, SELFPAY ==
[2020-06-19 00:57] VITALS: BP 124/51; PULSE 77; RESP 16; TEMP 36.6
[2020-06-22 08:07] VITALS: BP 104/65; PULSE 75; RESP 20; TEMP 36.8; BMI 31.6
--- NOTE | 2020-06-22 11:18 | PN.PCM_ITS ---
History of Present Illness Date of Service: 06/22/20 Chief Complaint: Ulceration right hallux Osteomyelitis right hallux distal phalanx Cellulitis right hallux Peripheral vascular disease History of Wound: The patient is a 64 year old M who presents for worsening right foot cellulitis. Patient has significant medical history including diabetes with neuropathy and peripheral vascular disease and psoriasis. Patient was noted to have ulceration after a biopsy of a suspicious lesion to his right hallux failed to heal. Patient was noted to have worsening of ulceration site which sent him to be admitted to the hospital per further work-up after failing a course of oral doxycycline. Patient was admitted on 05/31/2020 to [facility]. Patient had cultures obtained which grew E. coli, strep anginosus, Enterococcus faecalis, prevotella disiens and prevotella bivia. Infectious disease was consulted and Dr. Peoples had patient discharged on po doxy and augmentin for 6 week course. Patient had an MRI obtained of his right foot which demonstrated cellulitis the medial first digit with osteomyelitis of the dorsal and medial aspect of the base of the first distal phalanx. Dr. Peacock, vascular surgery, was also consulted while in the hospital. Repeat blood flow studies were obtained including L AAS and CTA. Patient is to follow with Dr. Peacock as an outpatient for angioplasty. Patient was discharged from the hospital with instructions to follow-up with the wound care center for continued wound care Patient has scheduled appointment with Dr Peacock for July 06 Progress of Wound: improved Subjective Subjective: Patient seen and examined resting comfortably. Patient denies any new pedal complaints. Patient denies any nausea, fever, chills, chest pain, shortness of breath, cough, streaking, purulence, vomiting. Objective Data Objective Data Vital Signs: Vital Signs Temp Pulse Resp BP 98.2 F 75 20 H 104/65 06/22/20 08:07 06/22/20 08:07 06/22/20 08:07 06/22/20 08:07 Weight: 260 lb Body Mass Index (BMI) 31.6 Assessment & Plan Assessment/Plan (1) 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 exposed: Status: Chronic Code(s): L97.512 - 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 exposed (2) PAD (peripheral artery disease): Status: Chronic Code(s): I73.9 - Peripheral vascular disease, unspecified (3) Osteomyelitis: Status: Acute Code(s): M86.9 - Osteomyelitis, unspecified Qualifiers: Laterality: right Osteomyelitis location: foot Osteomyelitis type: other acute Qualified Code(s): M86.171 - Other acute osteomyelitis, right ankle and foot (4) Cellulitis of right foot: Status: Acute Code(s): L03.115 - Cellulitis of right lower limb (5) Diabetic neuropathy associated with type 2 diabetes mellitus: Status: Chronic Code(s): E11.40 - Type 2 diabetes mellitus with diabetic neuropathy, unspecified Qualifiers: Diabetes mellitus complication detail: diabetic polyneuropathy Qualified Code(s): E11.42 - Type 2 diabetes mellitus with diabetic polyneuropathy (6) Psoriasis: Status: Acute Code(s): L40.9 - Psoriasis, unspecified (7) Claudication: Status: Chronic Code(s): I73.9 - Peripheral vascular disease, unspecified Plan: Patient seen and examined.? Patient noted to have improved wound to the right hallux with more granulation tissue noted.? There is noted less edema and erythema.? Ulceration was sharply debrided after verbal consent was given by patient without incident. Patient is to use hydrogel daily dressing changes.? Patient relates that he has wound supplies.? Patient to continue antibiotics per infectious disease.? Patient is a call Dr. Peacock's office to schedule follow-up appointment for intervention.? Patient has planned angioplasty with Dr Peacock on July 06, 2020 Patient presents today in surgical shoe for offloading.? Patient relates that even after having offloading insert go down to the bottom of the shoe he still felt unstable and was afraid he was going to roll his ankle.. States that he removed the offloading insert to the surgical shoe and feels much more stable. Patient? educated on the importance of proper wound care, smoking cessation, offloading, proper diet with good nutrition, blood sugar control and their impact on wound healing.? All questions answered.? Patient is to follow-up in 1 week.? This note was generated with [employer] dictation software.? It may contain incorrect words, spelling, and punctuation that were not noted in checking the note before signing. Physical Exam Const alert and no apparent distress General Appearance: cooperative and comfortable HEENT Head and Scalp: atraumatic Lymph Lymphatic: no lymphedema noted Resp normal respiratory effort Effort and Inspection: able to speak in complete sentences Extremity normal capillary refill, no calf tenderness and no pedal edema General Extremity: no tenderness to palpation of joints or extremities; Negative for clubbing or cyanosis Peripheral Pulses: Yes posterior tibial pulses present bilateral diminished and dorsalis pedis pulses present bilateral diminished Skin General Skin Exam: dry skin and venous stasis; Negative for ecchymosis, eschar or pallor Wounds: wounds noted Wound Narrative: ulcers noted to right hallux No malodor, purulence, probing to bone, streaking, fluctuation, crepitus. Skin is atrophic and hairless. More granular base. Less erthema/edema noted. Capsule is exposed. Psoriasis rash noted to bilateral lower extremities Neuro Gait (Neuro): normal gait Sensory Exam: extremities light-touch: decreased Motor Exam: strength 5/5 throughout Psych Appearance: appropriate Attitude: calm Debridement Note Debridement Note Post-Debridement Measurements and Additional Note: Post-Debridement Measurements/Treatment WC - Nurse 2 - General Ulcer CM Notes Start: 06/22/20 08:04 Freq: Status: Active Protocol: Activity Type Activity Date Activity User E-Sign Co-Sign Detail Recorded Client Recorded Date Recorded By Document 06/22/20 08:15 [id number] 06/22/20 08:24 SABA 06/22/20 08:15 Wound Center Nurse 2 #1- R LATERAL GR TOE -Time 08:19 -Correct Patient Yes -Correct Side, Site, Position Yes -Correct Procedure Yes -Procedure Performed Yes -Type of Procedure Debridement -Clinical Debridement Subcutaneous -Tissue Removed Subcutaneous -Post Debridement (cm) - Length 0.7 -Post Debridement (cm) - Width 1.2 -Post Debridement (cm) - Depth 0.2 -Total Square (Post) (cm) 0.84 -Area of Debridement (cm) - Length 0.7 -Area of Debridement (cm) - Width 1.2 -Total Square (Area) (cm) 0.84 -Tunneling No -Undermining/Tunneling No -Circular Undermining No -Wound/Ulcer Outcome Not Healed -Ulcer Cleansing Rinsed/ Irrigated with Saline -Foul Odor after Cleansing No -Bioengineered Tissue No -Bleeding Controlled with Pressure -Offloading Yes -Type of Offloading Surgical Shoe -Treatment Response Procedure Tolerated Well -Debridement - Subq, 1st 20sq cm Yes Pain Scale: 0-10 Numeric Is Patient Pain Free? Yes WC - Nurse 3 - General Ulcer D/C NN Start: 06/22/20 08:04 Freq: Status: Active Protocol: Activity Type Activity Date Activity User E-Sign Co-Sign Detail Recorded Client Recorded Date Recorded By Document 06/22/20 08:31 DL [id number] 06/22/20 08:32 DL 06/22/20 08:31 Wound Care Nurse 3 #1- R LATERAL GR TOE -Ulcer Cleansing Rinsed/ Irrigated with Saline -Foul Odor after Cleansing No -Primary Dressing Applied C Hydrogel ($) -Primary Dressing Covered/Secured with Dry Gauze, Secured with Tape Treatment Response Procedure Tolerated Well Pain Scale: 0-10 Numeric Is Patient Pain Free? Yes WC - Visit Discharge Discharge Condition Stable Ambulatory Status Ambulatory Wound debrided: hallux Laterality: Right Wound Grade/Stage: muniz 3 Type of Debridement: Excisional debridement Anesthesia Used: 4% Lidocaine Solution Depth: in the subcutaneous layer Percentage of wound debrided: 100 Instrument Used: 3mm curette Tissue Removed: includes fibrous, devitalized, biofilm, callus and slough tissue Severity: Fat Layer Exposed Amount of bleeding with debridement: Mild Bleeding Controlled with: Pressure Patient tolerated procedure: Patient tolerated procedure well
[2020-06-29 08:16] VITALS: BP 148/65; PULSE 82; RESP 16; TEMP 36.6; BMI 31.6
--- NOTE | 2020-06-29 09:19 | PCM.WC.PN ---
History of Present Illness Date of Service: 06/29/20 Chief Complaint: Ulceration right hallux Osteomyelitis right hallux distal phalanx Cellulitis right hallux Peripheral vascular disease History of Wound: The patient is a 64 year old M who presents for worsening right foot cellulitis. Patient has significant medical history including diabetes with neuropathy and peripheral vascular disease and psoriasis. Patient was noted to have ulceration after a biopsy of a suspicious lesion to his right hallux failed to heal. Patient was noted to have worsening of ulceration site which sent him to be admitted to the hospital per further work-up after failing a course of oral doxycycline. Patient was admitted on 05/31/2020 to [facility]. Patient had cultures obtained which grew E. coli, strep anginosus, Enterococcus faecalis, prevotella disiens and prevotella bivia. Infectious disease was consulted and Dr. Peoples had patient discharged on po doxy and augmentin for 6 week course. Patient had an MRI obtained of his right foot which demonstrated cellulitis the medial first digit with osteomyelitis of the dorsal and medial aspect of the base of the first distal phalanx. Dr. Peacock, vascular surgery, was also consulted while in the hospital. Repeat blood flow studies were obtained including L AAS and CTA. Patient is to follow with Dr. Peacock as an outpatient for angioplasty. Patient was discharged from the hospital with instructions to follow-up with the wound care center for continued wound care Patient has scheduled appointment with Dr Peacock for July 06 he believes. He is to contact office to confirm date Patient relates running into a cinderblock while doing yard work over the weekend causing a wound to his anterior allan which has been bleeding. He relates that he is on Xarelto and he bleeds easily. Progress of Wound: improved hallux wound. New wound anterior allan Subjective Subjective: Patient seen and examined resting comfortably. Patient relates running into a cinder block causing a wound to his anterior right allan which has been bleeding.. Patient denies any nausea, fever, chills, chest pain, shortness of breath, cough, streaking, purulence, vomiting. Objective Data Objective Data Vital Signs: Vital Signs Temp Pulse Resp BP 97.9 F 82 16 148/65 H 06/29/20 08:16 06/29/20 08:16 06/29/20 08:16 06/29/20 08:16 Oxygen Delivery Method Room Air Weight: 117.934 kg Body Mass Index (BMI) 31.6 Assessment & Plan Assessment/Plan (1) Ulcer of right lower extremity with fat layer exposed: (2) 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 exposed: (3) PAD (peripheral artery disease): (4) Osteomyelitis: QUALIFIERS: Laterality: right Osteomyelitis location: foot Osteomyelitis type: other acute Qualified Code(s): M86.171 - Other acute osteomyelitis, right ankle and foot (5) Cellulitis of right foot: (6) Diabetic neuropathy associated with type 2 diabetes mellitus: QUALIFIERS: Diabetes mellitus complication detail: diabetic polyneuropathy Qualified Code(s): E11.42 - Type 2 diabetes mellitus with diabetic polyneuropathy (7) Psoriasis: (8) Claudication: PLAN: Patient seen and examined.? Patient noted to have improved wound to the right hallux with more granulation tissue noted.? There is noted less edema and erythema.? New wound is noted to the anterior leg. This is superficial with sanguinous drainage. Ulcerations was sharply debrided after verbal consent was given by patient without incident. Patient is to use hydrogel daily dressing changes.? Patient relates that he has wound supplies.? Patient to continue antibiotics per infectious disease.? Patient is a call Dr. Peacock's office to schedule follow-up appointment for intervention.? Patient has planned angioplasty with Dr Peacock on July 06, 2020. Patient instructed to call to confirm date and time Patient presents today in surgical shoe for offloading.? Patient relates that even after having offloading insert go down to the bottom of the shoe he still felt unstable and was afraid he was going to roll his ankle.. States that he removed the offloading insert to the surgical shoe and feels much more stable. Patient? educated on the importance of proper wound care, smoking cessation, offloading, proper diet with good nutrition, blood sugar control and their impact on wound healing.? All questions answered.? Patient is to follow-up in 1 week.? This note was generated with [employer] software.? It may contain incorrect words, spelling, and punctuation that were not noted in checking the note before signing. The problems addressed require a low medical decision making level which includes two or more minor problems, a stable chronic illness, or an acute uncomplicated illness or injury. Physical Exam Const alert and no apparent distress General Appearance: cooperative and comfortable Lymph Lymphatic: no lymphedema noted Resp normal respiratory effort Effort and Inspection: able to speak in complete sentences Extremity normal capillary refill, no calf tenderness and no pedal edema General Extremity: no tenderness to palpation of joints or extremities; Negative for clubbing or cyanosis Skin General Skin Exam: dry skin and venous stasis; Negative for ecchymosis, eschar or pallor Wounds: wounds noted Wound Narrative: ulcers noted to right hallux and anterior allan No malodor, purulence, probing to bone, streaking, fluctuation, crepitus. Skin is atrophic and hairless. More granular base. Less erythema/edema noted. Capsule is exposed to hallux wound. Psoriasis rash noted to bilateral lower extremities. Excoriations noted to anterior allan with open wound noted with bleeding. The superficial. No signs of infection. Neuro Gait (Neuro): normal gait Sensory Exam: extremities light-touch: decreased Motor Exam: strength 5/5 throughout Psych Appearance: appropriate Attitude: calm Debridement Note Debridement Note Post-Debridement Measurements and Additional Note: Post-Debridement Measurements/Treatment - Nurse 1 - General Ulcer Assessment Start: 06/22/20 08:04 Freq: Status: Active Protocol: WC.KAYLYN Activity Type Activity Date Activity User E-Sign Co-Sign Detail Recorded Client Recorded Date Recorded By Document 06/22/20 08:07 [id number] 06/22/20 08:14 DL Document 06/29/20 08:16 [facility] [id number] 06/29/20 08:18 [facility] 06/22/20 06/29/20 08:07 08:16 - Today's Visit Information Type of service Follow-up Visit Follow-up Visit (Physician/PING PONG TABLE ASSEMBLER (Physician/PING PONG TABLE ASSEMBLER ) ) Arrival Mode Ambulatory Ambulatory Transfer Assistance None None Patient Identification Verified (Name & Yes Yes ) Patient Requires Transmission-Based No No Precautions Finger Stick Blood Sugar(mg/dl) (if 161 indicated): Blood Sugar Stated by Stated by Patient Patient Height and Weight Body Mass Index (BMI) 31.6 31.6 BMI Classification Obese Obese Vital Signs Temperature (97.8 F-99.1 F) 98.2 F 97.9 F Temperature Source Temporal Temporal Pulse Rate (60-100) 75 82 Pulse Location Monitor Monitor Respiratory Rate (12-18) 20 H 16 Respiratory rate source Observation Observation Oxygen Delivery Method Room Air Blood Pressure (90/60-120/80) 104/65 148/65 H Blood Pressure Mean (mm Hg) 78 92 Source Monitor Monitor Position Sitting Blood Pressure Location Left Forearm History Since Last Visit- (Skip if this is Patient's initial visit) Have you changed medications since your No No last visit? Any new allergies or adverse reactions No No Had a fall/change in ADL's that may No No increase risk of falls Signs or symptoms of abuse and/or No No neglect since last visit Have you been in the hospital since your No No last visit? Has dressing in place as prescribed Yes Yes Has compression in place as prescribed Yes N/A Has offloadiing in place as prescribed N/A Experienced any changes in pain level or No No management Left Footwear Regular Shoe Right Footwear Surgical Shoe with pressure relief insole Pain Scale: 0-10 Numeric Is Patient Pain Free? Yes WC - Nurse 1 - General Ulcer Measurement Start: 06/22/20 08:04 Freq: Status: Active Protocol: Activity Type Activity Date Activity User E-Sign Co-Sign Detail Recorded Client Recorded Date Recorded By Document 06/22/20 08:07 DL [id number] 06/22/20 08:14 DL Document 06/29/20 08:16 BMF [id number] 06/29/20 08:18 BMF 06/22/20 06/29/20 08:07 08:16 Wound Center Nurse 1 #2- R ALLAN CLUSTER -Combined with other wound No -Current Size (cm) - Length 6.6 -Current Size (cm) - Width 3.7 -Current Size (cm) - Depth 0.1 -Total Square Cm 24.42 -Date of Last Picture (Recall this 06/29/20 field) -Photo Taken Yes -Epithelialization None Present -Tunneling No -Undermining/Tunneling No -Circular Undermining No -Exudate Amt None Present -Wound Margin Distinct, Outline Attached -Granulation Amt None Present (0 %) -Slough/Fibrin Yes -Necrosis Amt Large (67-100%) -Necrotic Tissue Type Eschar -Texture (Chantelle-wound Skin Appearance) Assessed, Localized Edema ,Scarring -Moisture (Chantelle-wound Skin Appearance) Assessed -Color (Chantelle-wound Skin Appearance) Assessed, Erythema -Temperature (Chantelle-wound Skin No Abnormality Appearance) (Pt Warm) -Tenderness on Palpation (Chantelle-wound No Skin Appearance) -Ulcer Cleansing Rinsed/ Irrigated with Saline -Foul Odor after Cleansing No -Anesthetic Used 4% Lidocaine Solution #1- R LATERAL GR TOE -Combined with other wound No No -Current Size (cm) - Length 0.8 0.8 -Current Size (cm) - Width 1 1 -Current Size (cm) - Depth 0.2 0.2 -Total Square Cm 0.8 0.8 -Photo Taken No No -Epithelialization None Present -Tunneling No -Undermining/Tunneling No -Circular Undermining No -Exudate Amt Medium Small -Exudate Type Serosanguineous Serosanguineous -Wound Margin Distinct, Distinct, Outline Outline Attached Attached -Granulation Amt Medium (34-66%) Medium (34-66%) -Granulation Quality Red Red -Slough/Fibrin Yes -Necrosis Amt Medium (34-66%) Medium (34-66%) -Necrotic Tissue Type Adherent Slough Adherent Slough -Structure Exposed N/A -Texture (Chantelle-wound Skin Appearance) Scarring Assessed, Scarring -Moisture (Chantelle-wound Skin Appearance) Maceration Assessed -Color (Chantelle-wound Skin Appearance) Hemosiderin Assessed, Staining Erythema -Temperature (Chantelle-wound Skin No Abnormality No Abnormality Appearance) (Pt Warm) (Pt Warm) -Tenderness on Palpation (Chantelle-wound No No Skin Appearance) -Ulcer Cleansing Wound Cleanser Rinsed/ Irrigated with Saline -Foul Odor after Cleansing No No -Anesthetic Used 4% Lidocaine 5% Lidocaine Solution Gel Left Calf (cm) 34 Left Ankle (cm) 19 WC - Nurse 2 - General Ulcer CM Notes Start: 06/22/20 08:04 Freq: Status: Active Protocol: Activity Type Activity Date Activity User E-Sign Co-Sign Detail Recorded Client Recorded Date Recorded By Document 06/22/20 08:15 JF [id number] 06/22/20 08:24 JF Document 06/29/20 08:31 JF [id number] 06/29/20 08:37 JF 06/22/20 06/29/20 08:15 08:31 Wound Center Nurse 2 #2- R ALLAN CLUSTER -Time 08:34 -Correct Patient Yes -Correct Side, Site, Position Yes -Correct Procedure Yes -Procedure Performed Yes -Type of Procedure Debridement -Clinical Debridement Subcutaneous -Tissue Removed Subcutaneous -Post Debridement (cm) - Length 1.2 -Post Debridement (cm) - Width 1.2 -Post Debridement (cm) - Depth 0.1 -Total Square (Post) (cm) 1.44 -Area of Debridement (cm) - Length 1.2 -Area of Debridement (cm) - Width 1.2 -Total Square (Area) (cm) 1.44 -Tunneling No -Undermining/Tunneling No -Circular Undermining No -Wound/Ulcer Outcome Not Healed -Ulcer Cleansing Rinsed/ Irrigated with Saline -Foul Odor after Cleansing No -Bioengineered Tissue No -Bleeding Controlled with Pressure -Offloading Yes -Type of Offloading Surgical Shoe -Treatment Response Procedure Tolerated Well -Debridement - Subq, 1st 20sq cm No #1- R LATERAL GR TOE -Time 08:19 08:31 -Correct Patient Yes Yes -Correct Side, Site, Position Yes Yes -Correct Procedure Yes Yes -Procedure Performed Yes Yes -Type of Procedure Debridement Debridement -Clinical Debridement Subcutaneous Subcutaneous -Tissue Removed Subcutaneous Subcutaneous -Post Debridement (cm) - Length 0.7 0.7 -Post Debridement (cm) - Width 1.2 1.1 -Post Debridement (cm) - Depth 0.2 0.2 -Total Square (Post) (cm) 0.84 0.77 -Area of Debridement (cm) - Length 0.7 0.7 -Area of Debridement (cm) - Width 1.2 1.1 -Total Square (Area) (cm) 0.84 0.77 -Tunneling No No -Undermining/Tunneling No No -Circular Undermining No No -Wound/Ulcer Outcome Not Healed Not Healed -Ulcer Cleansing Rinsed/ Rinsed/ Irrigated with Irrigated with Saline Saline -Foul Odor after Cleansing No No -Bioengineered Tissue No No -Bleeding Controlled with Pressure Pressure -Offloading Yes Yes -Type of Offloading Surgical Shoe Camwalker -Treatment Response Procedure Procedure Tolerated Well Tolerated Well -Debridement - Subq, 1st 20sq cm Yes Yes Pain Scale: 0-10 Numeric Is Patient Pain Free? Yes Yes WC - Nurse 3 - General Ulcer D/C NN Start: 06/22/20 08:04 Freq: Status: Active Protocol: Activity Type Activity Date Activity User E-Sign Co-Sign Detail Recorded Client Recorded Date Recorded By Document 06/22/20 08:31 DL [id number] 06/22/20 08:32 DL Document 06/29/20 08:44 DL [id number] 06/29/20 08:46 DL 06/22/20 06/29/20 08:31 08:44 Wound Care Nurse 3 #2- R ALLAN CLUSTER -Ulcer Cleansing Rinsed/ Irrigated with Saline -Foul Odor after Cleansing No -Primary Dressing Applied C Hydrogel ($) -Primary Dressing Covered/Secured with Dry Gauze & Roll Gauze, Secured with Tape #1- R LATERAL GR TOE -Ulcer Cleansing Rinsed/ Rinsed/ Irrigated with Irrigated with Saline Saline -Foul Odor after Cleansing No No -Primary Dressing Applied C Hydrogel ($) -Other Dressing hydrogel -Primary Dressing Covered/Secured with Dry Gauze, Dry Gauze & Secured with Roll Gauze, Tape Secured with Tape -Other Covering galileo Treatment Response Procedure Procedure Tolerated Well Tolerated Well Vital Signs Source Monitor Pain Scale: 0-10 Numeric Is Patient Pain Free? Yes Yes WC - Visit Discharge Discharge Condition Stable Stable Ambulatory Status Ambulatory Ambulatory Transportation Private Auto Wound debrided: Right hallux Laterality: Right Wound Grade/Stage: Li 3 Type of Debridement: Excisional debridement Anesthesia Used: 4% Lidocaine Solution Depth: in the subcutaneous layer Percentage of wound debrided: 100 Instrument Used: 3mm curette Tissue Removed: Includes fibrous, devitalized, biofilm, callus and slough tissue Severity: Fat Layer Exposed Amount of bleeding with debridement: Mild Bleeding Controlled with: Pressure Patient tolerated procedure: Patient tolerated procedure well Additional Wound Wound debrided: Anterior allan Laterality: Right Wound Grade/Stage: Li 1 Type of Debridement: Excisional debridement Anesthesia Used: 4% Lidocaine Solution Depth: in the subcutaneous layer Percentage of wound debrided: 50 Instrument Used: 3mm curette Tissue Removed: Includes fibrous, devitalized, biofilm, callus and slough tissue Severity: Fat Layer Exposed Amount of bleeding with debridement: Mild Bleeding Controlled with: Pressure Patient tolerated procedure: Patient tolerated procedure well
[2020-07-13 08:09] VITALS: BP 132/68; PULSE 84; RESP 18; TEMP 36.8; BMI 31.6
--- NOTE | 2020-07-13 08:45 | PN.PCM_ITS ---
History of Present Illness Date of Service: 07/13/20 Chief Complaint: Ulceration right hallux Osteomyelitis right hallux distal phalanx Cellulitis right hallux Peripheral vascular disease History of Wound: The patient is a 64 year old M who presents for worsening right foot cellulitis. Patient has significant medical history including diabetes with neuropathy and peripheral vascular disease and psoriasis. Patient was noted to have ulceration after a biopsy of a suspicious lesion to his right hallux failed to heal. Patient was noted to have worsening of ulceration site which sent him to be admitted to the hospital per further work-up after failing a course of oral doxycycline. Patient was admitted on 05/31/2020 to [facility]. Patient had cultures obtained which grew E. coli, strep anginosus, Enterococcus faecalis, prevotella disiens and prevotella bivia. Infectious disease was consulted and Dr. Peoples had patient discharged on po doxy and augmentin for 6 week course. Patient had an MRI obtained of his right foot which demonstrated cellulitis the medial first digit with osteomyelitis of the dorsal and medial aspect of the base of the first distal phalanx. Dr. Peacock, vascular surgery, was also consulted while in the hospital. Repeat blood flow studies were obtained including L AAS and CTA. Patient is to follow with Dr. Peacock as an outpatient for angioplasty. Patient was discharged from the hospital with instructions to follow-up with the wound care center for continued wound care Patient had intervention with Dr Peacock July 06. Patient had an balloon angioplasty done at 2 different locations with an angiogram. Patient relates running into a cinderblock while doing yard work over the weekend causing a wound to his anterior allan which has been bleeding. He relates that he is on Xarelto and he bleeds easily. He relates that while wrapping this area he has noticed a new sore to the back of his left leg. Progress of Wound: improved hallux wound. Anterior allan wound improved. New sore area to posterior leg right. Subjective Subjective Patient seen and examined resting comfortably. Patient denies any new pedal complaints. Patient denies any nausea, fever, chills, chest pain, shortness of breath, cough, streaking, purulence, vomiting. Objective Data Objective Data Vital Signs: Vital Signs Temp Pulse Resp BP 98.2 F 84 18 132/68 H 07/13/20 08:09 07/13/20 08:09 07/13/20 08:09 07/13/20 08:09 Oxygen Delivery Method Room Air Weight: 117.934 kg Body Mass Index (BMI) 31.6 Physical Exam Const alert and no apparent distress General Appearance: cooperative and comfortable Lymph Lymphatic: no lymphedema noted Resp normal respiratory effort Effort and Inspection: able to speak in complete sentences Extremity normal capillary refill, no calf tenderness and no pedal edema General Extremity: no tenderness to palpation of joints or extremities; Negative for clubbing or cyanosis Peripheral Pulses: Yes posterior tibial pulses present right 2+ and dorsalis pedis pulses present right 2+ Skin General Skin Exam: dry skin and venous stasis; Negative for ecchymosis, eschar or pallor Wounds: wounds noted Wound Narrative: ulcers noted to right hallux and anterior allan No malodor, purulence, probing to bone, streaking, fluctuation, crepitus. Skin is atrophic and hairless. More granular base. Less erythema/edema noted. Caps ule is exposed to hallux wound. Psoriasis rash noted to bilateral lower extremities. Excoriations noted to anterior allan with open wound noted with bleeding. This is superficial. No signs of infection. Mild maceration noted perihallux wound. Serous drainage from anterior allan wound. Posterior right calf noted to have area preulcerative with pain on palpation. There is no open wound at this time. This is likely from cutting off while putting bandage to anterior allan wound. There is callus tissue noted to the distal tuft of the hallux as well as to the plantar aspect of the fifth metatarsal styloid process. 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 Neuro Gait (Neuro): normal gait Sensory Exam: extremities light-touch: decreased Motor Exam: strength 5/5 throughout Psych Appearance: appropriate Attitude: calm Debridement Note Debridement Note Post-Debridement Measurements and Additional Note: Post-Debridement Measurements/Treatment [place] - Nurse 1 - General Ulcer Assessment Start: 06/22/20 08:04 Freq: Status: Active Protocol: MOEEXT Activity Type Activity Date Activity User E-Sign Co-Sign Detail Recorded Client Recorded Date Recorded By Document 06/22/20 08:07 DL [id number] 06/22/20 08:14 DL Document 06/29/20 08:16 BMF [id number] 06/29/20 08:18 BMF Document 07/13/20 08:09 BMF [id number] 07/13/20 08:16 BM 06/22/20 06/29/20 07/13/20 08:07 08:16 08:09 WC - Today's Visit Information Type of service Follow-up Visit Follow-up Visit Follow-up Visit (Physician/ROAD PASSENGER FIRER (Physician/ROAD PASSENGER FIRER (Physician/ROAD PASSENGER FIRER ) ) ) Arrival Mode Ambulatory Ambulatory Ambulatory Transfer Assistance None None None Patient Identification Verified (Name & Yes Yes Yes ) Patient Requires Transmission-Based No No No Precautions Finger Stick Blood Sugar(mg/dl) (if 161 161 indicated): Blood Sugar Stated by Stated by Stated by Patient Patient Patient Height and Weight Body Mass Index (BMI) 31.6 31.6 31.6 BMI Classification Obese Obese Obese Vital Signs Temperature (97.8 F-99.1 F) 98.2 F 97.9 F 98.2 F Temperature Source Temporal Temporal Temporal Pulse Rate (60-100) 75 82 84 Pulse Location Monitor Monitor Monitor Respiratory Rate (12-18) 20 H 16 18 Respiratory rate source Observation Observation Observation Oxygen Delivery Method Room Air Room Air Blood Pressure (90/60-120/80) 104/65 148/65 H 132/68 H Blood Pressure Mean (mm Hg) 78 92 89 Source Monitor Monitor Monitor Position Sitting Sitting Blood Pressure Location Left Forearm Left Arm History Since Last Visit- (Skip if this is Patient's initial visit) Have you changed medications since your No No No last visit? Any new allergies or adverse reactions No No No Had a fall/change in ADL's that may No No No increase risk of falls Signs or symptoms of abuse and/or No No No neglect since last visit Have you been in the hospital since your No No No last visit? Has dressing in place as prescribed Yes Yes Yes Has compression in place as prescribed Yes N/A N/A Has offloadiing in place as prescribed N/A Yes Experienced any changes in pain level or No No No management Left Footwear Regular Shoe Regular Shoe Right Footwear Surgical Shoe Removable Cast with pressure Walker/Walking relief insole Boot Pain Scale: 0-10 Numeric Is Patient Pain Free? Yes Yes - Nurse 1 - General Ulcer Measurement Start: 06/22/20 08:04 Freq: Status: Active Protocol: Activity Type Activity Date Activity User E-Sign Co-Sign Detail Recorded Client Recorded Date Recorded By Document 06/22/20 08:07 DL [id number] 06/22/20 08:14 DL Document 06/29/20 08:16 [facility] [id number] 06/29/20 08:18 BMF Document 07/13/20 08:09 [facility] [id number] 07/13/20 08:16 F 06/22/20 06/29/20 07/13/20 08:07 08:16 08:09 Wound Center Nurse 1 #2- R ALLAN CLUSTER -Combined with other wound No No -Current Size (cm) - Length 6.6 1.2 -Current Size (cm) - Width 3.7 2 -Current Size (cm) - Depth 0.1 0.2 -Total Square Cm 24.42 2.4 -Date of Last Picture (Recall this 06/29/20 field) -Photo Taken Yes No -Epithelialization None Present Small 1-33% -Tunneling No No -Undermining/Tunneling No No -Circular Undermining No No -Exudate Amt None Present Small -Exudate Type Serosanguineous -Wound Margin Distinct, Flat & Intact Outline Attached -Granulation Amt None Present (0 Small (1-33%) %) -Granulation Quality Red -Slough/Fibrin Yes Yes -Necrosis Amt Large (67-100%) Large (67-100%) -Necrotic Tissue Type Eschar Eschar -Texture (Chantelle-wound Skin Appearance) Assessed, Assessed, Localized Edema Scarring,Rash ,Scarring -Moisture (Chantelle-wound Skin Appearance) Assessed Assessed,Dry/ Scaly -Color (Chantelle-wound Skin Appearance) Assessed, Assessed Erythema -Temperature (Chantelle-wound Skin No Abnormality No Abnormality Appearance) (Pt Warm) (Pt Warm) -Tenderness on Palpation (Chantelle-wound No No Skin Appearance) -Ulcer Cleansing Rinsed/ Rinsed/ Irrigated with Irrigated with Saline Saline -Foul Odor after Cleansing No No -Anesthetic Used 4% Lidocaine 5% Lidocaine Solution Gel #1- R LATERAL GR TOE -Combined with other wound No No No -Current Size (cm) - Length 0.8 0.8 0.9 -Current Size (cm) - Width 1 1 0.9 -Current Size (cm) - Depth 0.2 0.2 0.2 -Total Square Cm 0.8 0.8 0.81 -Photo Taken No No No -Epithelialization None Present Small 1-33% -Tunneling No No -Undermining/Tunneling No No -Circular Undermining No No -Exudate Amt Medium Small Small -Exudate Type Serosanguineous Serosanguineous Serosanguineous -Wound Margin Distinct, Distinct, Distinct, Outline Outline Outline Attached Attached Attached -Granulation Amt Medium (34-66%) Medium (34-66%) Small (1-33%) -Granulation Quality Red Red [place] -Slough/Fibrin Yes Yes -Necrosis Amt Medium (34-66%) Medium (34-66%) Large (67-100%) -Necrotic Tissue Type Adherent Slough Adherent Slough Adherent Slough -Structure Exposed N/A -Texture (Chantelle-wound Skin Appearance) Scarring Assessed, Assessed, Scarring Scarring -Moisture (Chantelle-wound Skin Appearance) Maceration Assessed Assessed, Maceration -Color (Chantelle-wound Skin Appearance) Hemosiderin Assessed, Assessed,Palor Staining Erythema -Temperature (Chantelle-wound Skin No Abnormality No Abnormality No Abnormality Appearance) (Pt Warm) (Pt Warm) (Pt Warm) -Tenderness on Palpation (Chantelle-wound No No No Skin Appearance) -Ulcer Cleansing Wound Cleanser Rinsed/ Rinsed/ Irrigated with Irrigated with Saline Saline -Foul Odor after Cleansing No No No -Anesthetic Used 4% Lidocaine 5% Lidocaine 5% Lidocaine Solution Gel Gel Left Calf (cm) 34 Left Ankle (cm) 19 - Nurse 2 - General Ulcer CM Notes Start: 06/22/20 08:04 Freq: Status: Active Protocol: Activity Type Activity Date Activity User E-Sign Co-Sign Detail Recorded Client Recorded Date Recorded By Document 06/22/20 08:15 JF [id number] 06/22/20 08:24 Document 06/29/20 08:31 [id number] 06/29/20 08:37 06/22/20 06/29/20 08:15 08:31 Wound Center Nurse 2 #2- R ALLAN CLUSTER -Time 08:34 -Correct Patient Yes -Correct Side, Site, Position Yes -Correct Procedure Yes -Procedure Performed Yes -Type of Procedure Debridement -Clinical Debridement Subcutaneous -Tissue Removed Subcutaneous -Post Debridement (cm) - Length 1.2 -Post Debridement (cm) - Width 1.2 -Post Debridement (cm) - Depth 0.1 -Total Square (Post) (cm) 1.44 -Area of Debridement (cm) - Length 1.2 -Area of Debridement (cm) - Width 1.2 -Total Square (Area) (cm) 1.44 -Tunneling No -Undermining/Tunneling No -Circular Undermining No -Wound/Ulcer Outcome Not Healed -Ulcer Cleansing Rinsed/ Irrigated with Saline -Foul Odor after Cleansing No -Bioengineered Tissue No -Bleeding Controlled with Pressure -Offloading Yes -Type of Offloading Surgical Shoe -Treatment Response Procedure Tolerated Well -Debridement - Subq, 1st 20sq cm No #1- R LATERAL GR TOE -Time 08:19 08:31 -Correct Patient Yes Yes -Correct Side, Site, Position Yes Yes -Correct Procedure Yes Yes -Procedure Performed Yes Yes -Type of Procedure Debridement Debridement -Clinical Debridement Subcutaneous Subcutaneous -Tissue Removed Subcutaneous Subcutaneous -Post Debridement (cm) - Length 0.7 0.7 -Post Debridement (cm) - Width 1.2 1.1 -Post Debridement (cm) - Depth 0.2 0.2 -Total Square (Post) (cm) 0.84 0.77 -Area of Debridement (cm) - Length 0.7 0.7 -Area of Debridement (cm) - Width 1.2 1.1 -Total Square (Area) (cm) 0.84 0.77 -Tunneling No No -Undermining/Tunneling No No -Circular Undermining No No -Wound/Ulcer Outcome Not Healed Not Healed -Ulcer Cleansing Rinsed/ Rinsed/ Irrigated with Irrigated with Saline Saline -Foul Odor after Cleansing No No -Bioengineered Tissue No No -Bleeding Controlled with Pressure Pressure -Offloading Yes Yes -Type of Offloading Surgical Shoe Camwalker -Treatment Response Procedure Procedure Tolerated Well Tolerated Well -Debridement - Subq, 1st 20sq cm Yes Yes Pain Scale: 0-10 Numeric Is Patient Pain Free? Yes Yes WC - Nurse 3 - General Ulcer D/C NN Start: 06/22/20 08:04 Freq: Status: Active Protocol: Activity Type Activity Date Activity User E-Sign Co-Sign Detail Recorded Client Recorded Date Recorded By Document 06/22/20 08:31 DL [id number] 06/22/20 08:32 DL Document 06/29/20 08:44 DL [id number] 06/29/20 08:46 DL 06/22/20 06/29/20 08:31 08:44 Wound Care Nurse 3 #2- R ALLAN CLUSTER -Ulcer Cleansing Rinsed/ Irrigated with Saline -Foul Odor after Cleansing No -Primary Dressing Applied C Hydrogel ($) -Primary Dressing Covered/Secured with Dry Gauze & Roll Gauze, Secured with Tape #1- R LATERAL GR TOE -Ulcer Cleansing Rinsed/ Rinsed/ Irrigated with Irrigated with Saline Saline -Foul Odor after Cleansing No No -Primary Dressing Applied C Hydrogel ($) -Other Dressing hydrogel -Primary Dressing Covered/Secured with Dry Gauze, Dry Gauze & Secured with Roll Gauze, Tape Secured with Tape -Other Covering galileo Treatment Response Procedure Procedure Tolerated Well Tolerated Well Vital Signs Source Monitor Pain Scale: 0-10 Numeric Is Patient Pain Free? Yes Yes WC - Visit Discharge Discharge Condition Stable Stable Ambulatory Status Ambulatory Ambulatory Transportation Private Auto Wound debrided: Hallux Laterality: Right Wound Grade/Stage: Li 3 Type of Debridement: Excisional debridement Anesthesia Used: 4% Lidocaine Solution Depth: in the subcutaneous layer Percentage of wound debrided: 100 Instrument Used: #15 blade Tissue Removed: includes fibrous, devitalized, biofilm, callus and slough tissue Severity: Fat Layer Exposed Amount of bleeding with debridement: Mild Bleeding Controlled with: Pressure Patient tolerated procedure: Patient tolerated procedure well Additional Wound Wound debrided: Anterior allan Laterality: Right Wound Grade/Stage: Li 1 Type of Debridement: Excisional debridement Anesthesia Used: 4% Lidocaine Solution Depth: in the subcutaneous layer Percentage of wound debrided: 100 Instrument Used: 3mm curette Tissue Removed: Includes fibrous, devitalized, biofilm, callus and slough tissue Severity: Fat Layer Exposed Amount of bleeding with debridement: Mild Bleeding Controlled with: Pressure Patient tolerated procedure: Patient tolerated procedure well Assessment/Plan Assessment/Plan (1) Ulcer of right lower extremity with fat layer exposed: CODE(S): L97.912 - Non-pressure chronic ulcer of unspecified part of right lower leg with fat layer exposed (2) 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 exposed: CODE(S): L97.512 - 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 exposed (3) PAD (peripheral artery disease): CODE(S): I73.9 - Peripheral vascular disease, unspecified (4) Osteomyelitis: CODE(S): M86.9 - Osteomyelitis, unspecified QUALIFIERS: Osteomyelitis type: other acute Osteomyelitis location: foot Laterality: right Qualified Code(s): M86.171 - Other acute osteomyelitis, right ankle and foot (5) Cellulitis of right foot: CODE(S): L03.115 - Cellulitis of right lower limb (6) Diabetic neuropathy associated with type 2 diabetes mellitus: CODE(S): E11.40 - Type 2 diabetes mellitus with diabetic neuropathy, unspecified QUALIFIERS: Diabetes mellitus complication detail: diabetic polyneuropathy Qualified Code(s): E11.42 - Type 2 diabetes mellitus with diabetic polyneuropathy (7) Psoriasis: CODE(S): L40.9 - Psoriasis, unspecified (8) Claudication: CODE(S): I73.9 - Peripheral vascular disease, unspecified PLAN: Patient seen and examined.? Patient noted to have improved wound to the right hallux and anterior allan with more granulation tissue noted.? There is noted less edema and erythema.? New preulcerative area to the posterior calf right. This is likely from digging into area from dressing to anterior allan. Discussed padding up area better to prevent irritation. Patient is watch his area closely. Ulcerations was sharply debrided after verbal consent was given by patient without incident. Patient is to use hydrogel daily dressing changes.? Patient is the pad of posterior calf well to prevent future wounds. Patient relates that he has wound supplies.? Patient relates that today is his last day of antibiotics per infectious d luann. Patient had an arteriogram with bilateral iliofemoral angiogram and a balloon angioplasty to the right external iliac artery performed by Dr. Peacock on 07/06/2020. Patient presents today in surgical shoe for offloading.? Patient relates that even after having offloading insert go down to the bottom of the shoe he still felt unstable and was afraid he was going to roll his ankle.. States that he removed the offloading insert to the surgical shoe and feels much more stable. Patient? educated on the importance of proper wound care, smoking cessation, offloading, proper diet with good nutrition, blood sugar control and their impact on wound healing.? All questions answered.? Patient is to follow-up in 1 week.? This note was generated with Inflectionation software.? It may contain incorrect words, spelling, and punctuation that were not noted in checking the note before signing.
== END 2020-07-19 23:59 ==
LOC: WC 08:15
PROVIDERS: PCP Family Medicine; Visit Provider Podiatrist Foot & Ankle Surgery
DX: E11.621 Type 2 diabetes mellitus with foot ulcer (principal); L97.512 Non-pressure chronic ulcer of other part of right foot with fat layer exposed; E11.51 Type 2 diabetes mellitus with diabetic peripheral angiopathy without gangrene; M86.171 Other acute osteomyelitis, right ankle and foot; L03.115 Cellulitis of right lower limb; E11.42 Type 2 diabetes mellitus with diabetic polyneuropathy; L40.9 Psoriasis, unspecified; Z79.01 Long term (current) use of anticoagulants; E11.69 Type 2 diabetes mellitus with other specified complication
CPT/HCPCS: 11042

== ENCOUNTER 2020-07-14 06:58 | Emergency (ER) | payer MEDICARE, SELFPAY ==
[2020-07-14 06:59] VITALS: BP 164/97; PULSE 90; RESP 14; TEMP 36.9; O2SAT 98; BMI 32.4
--- NOTE | 2020-07-14 07:15 | CT_ITS ---
STUDY: CT ABDOMEN AND PELVIS WITHOUT CONTRAST REASON FOR EXAM: Male, 65 years old. SBO RADIATION DOSAGE (If Supplied By Facility): CTDIvol = ( 21.22 ) mGy, DLP = ( 1102.93 ) mGycm TECHNIQUE: Transaxial images were obtained from the dome of the diaphragm to the symphysis pubis without oral contrast, and without intravenous contrast. Sagittal and coronal images were reconstructed. Individualized dose optimization techniques were used for this CT. COMPARISON: 02/12/2019. FINDINGS: Lung bases: No acute processes. Heart: Cardiac device. Liver: Unremarkable. Gallbladder/biliary ducts: Cholecystectomy. No acute process. Pancreas: Unremarkable. Spleen: Splenic granulomas. Adrenal glands: Unremarkable. Kidneys/ureters/bladder: Unremarkable. Prostate: Prostate calcifications. Mild prostatomegaly. Large bowel/small bowel: Mild constipation. No acute large bowel or small bowel process. Appendix: Unremarkable (axial image 140 series 2). Gastroesophageal junction/stomach: Fluid-filled stomach. Retroperitoneum/lymph nodes: No intra-abdominal free air. No ascites. No pathologically enlarged lymph nodes. Vascular: Vascular calcifications. Osseous structures: L5 bilateral pars defects with grade 1 spondylolisthesis. Spinal degenerative changes. No acute process. Subcutaneous/soft tissues: Mild nonspecific ventral stranding (axial image [address] CT/Abdomen/Pelvis without Cont IMPRESSION: Constipation without acute small bowel obstruction No acute intra-abdominal/pelvic findings Nonspecific fluid-filled stomach (potential gastroenteritis) Nonemergent findings, as above Electronically Signed: Bulmaro Rivera DO at 8:07 EDT Tel , Service support ,
[2020-07-14] MEDS: Ondansetron 4 MG/2 ML Vial IV (07:27)
[2020-07-14] MEDS: 0.9% Normal Saline 1,000 ML 1000 ML IV (07:27)
--- NOTE | 2020-07-14 07:28 | EDS_ITS ---
HPI HPI - GI History of Present Illness Chief Complaint: Constipation Narrative Narrative: of hypertension, hyperlipidemia,Patient presenting secondary to constipation nausea and vomiting. Patient has a underlying history peripheral artery disease, ischemic cardiomyopathy, past history of open cholecystectomy, diabetes, COPD. Patient states that over the course of about the last 5 days he has had a inability to have a bowel movement. Tells me that it feels as if he has stool in the vault, but he is unable to pass it. Now he states that it is progressed to the point where he feels like he either needs to vomit or have a bowel movement but can really do neither. He has not been passing any flatus. He does endorse that he has been having some abdominal distention. He denies that there is really any abdominal pain associated with this. His emesis is almost completely nonproductive, he is only spitting up small amounts of fluid. He denies any fevers. Review of systems otherwise negative. [facility] Medical History (Updated 07/14/20 @ 08:[address] Marko Wright MD) Atherosclerosis of [place] coronary artery of [place] heart without angina p ectoris Chronic kidney disease Claudication COPD (chronic obstructive pulmonary disease) DVT (deep venous thrombosis) Essential (primary) hypertension History of non-ST elevation myocardial infarction (NSTEMI) (10/11/13) Hyperlipidemia IBS (irritable bowel syndrome) Ischemic cardiomyopathy Non-rheumatic aortic stenosis NSVT (nonsustained ventricular tachycardia) Obesity Old inferior wall myocardial infarction (02/27/05) Pulmonary embolism (09/2013) Secondary pulmonary arterial hypertension Type 2 diabetes mellitus Home Medications atorvastatin 80 mg PO DAILY 10/05/13 [History Last Taken 05/31/20] nitroglycerin 0.4 mg SUBLINGUAL Q5M PRN #25 tab 10/14/13 [Rx Last Taken Unknown] albuterol sulfate 6.7 gm IH Q4H PRN PRN 07/22/16 [History Last Taken 05/31/20] hydroxyzine HCl 50 mg tablet 50 mg PO QHS tab 03/14/17 [History Last Taken 05/30/20] ezetimibe 10 mg tablet 10 mg PO DAILY 07/10/17 [History Last Taken 05/31/20] losartan 50 mg tablet 50 mg PO DAILY 02/01/18 [History Last Taken 05/31/20] rivaroxaban 15 mg tablet 20 mg PO DAILY tab 02/25/20 [History Last Taken 05/31/20] trazodone 50 mg tablet 50 mg PO QHS tab 02/25/20 [History Last Taken 05/30/20] Levocetirizine Dihydrochloride 5 mg PO QHS 05/31/20 [History Last Taken 05/30/20] Victoza 1.8 mg SQ DAILY 05/31/20 [History Last Taken 05/31/20] carvedilol 6.25 mg PO BID 05/31/20 [History Last Taken 05/31/20] furosemide 40 mg PO DAILY 05/31/20 [History Last Taken 05/31/20] insulin aspart U-100 80 units SQ BID 05/31/20 [History Last Taken 05/31/20] insulin aspart U-100 See Protocol SC TIDCM 05/31/20 [History Last Taken 05/31/20] oxycodone-acetaminophen 1 tablet PO Q4H PRN 05/31/20 [History Last Taken 05/31/20] umeclidinium-vilanterol 1 puff PO DAILY 05/31/20 [History Last Taken 05/31/20] amoxicillin-pot clavulanate 1 each PO BID #80 tablet 06/03/20 [Rx Last Taken Unknown] collagenase clostridium histo. 1 applic TOPICAL DAILY tube 06/03/20 [Rx Last Taken Unknown] doxycycline monohydrate 100 mg PO BID #80 capsule 06/03/20 [Rx Last Taken Unknown] insulin glargine 86 units SC BID pen 06/03/20 [Rx Last Taken Unknown] valsartan [Diovan] 160 mg PO DAILY 07/05/20 [History Last Taken Unknown] Allergy/AdvReac Type Severity Reaction Status Date / Time vancomycin AdvReac Rash Verified 07/14/20 07:02 Family History Father CAD (coronary artery disease) Diabetes Brother CAD (coronary artery disease) Diabetes Mother Cancer Leukemia Brother Diabetes Surgical History H/O coronary artery bypass surgery (04/18/99) History of coronary artery stent placement (02/27/05) History of implantable cardiac defibrillator (ICD) (02/07/18) History of left heart catheterization (10/13/13) Hx of cataract extraction Social History Smoking Status: Former smoker pack-years: 39 second hand exposure: No alcohol intake: never substance use type: does not use caffeine: Yes (1/day) what type of physical activity do you participate in: none ROS ROS ED Constitutional Constitutional ED: Denies chills or fever(s) ENT ENT ED: Denies sore throat Cardiovascular Cardiovascular: Denies chest pain Respiratory/Chest Respiratory/Chest: Denies cough or dyspnea Gastrointestinal Gastrointestinal: Reports constipation, nausea and vomiting; Denies abdominal pain Genitourinary Genitourinary ED: Denies dysuria, hematuria or urinary frequency Musculoskeletal Musculoskeletal: Denies myalgias Integumentary Denies rash Neurologic Neurologic: Denies paresthesias or weakness Psychiatric Psychiatric: Denies depression Endocrine Endocrinology: Denies polyuria Hematologic/Lymphatic Hematologic/Lymphatic: Denies easy bleeding or easy bruising Allergic/Immunologic Allergic/Immunologic ED: Denies urticaria EXAM Physical Exam Const Vital Signs: 07/14/20 06:59 Temperature 98.5 F Temperature Source Oral Pulse Rate 90 Respiratory Rate 14 Blood Pressure 164/97 H Blood Pressure Mean 119 Pulse Ox 98 Oxygen Delivery Method Room Air Positive well nourished, well developed and obese Constitutional Narrative: Patient is actively retching on my exam General Appearance ED: well developed and NAD Nutritional Appearance: obese HEENT normocephalic and atraumatic Eyes EOMs intact bilaterally General Eye ED: Negative for pale conjunctiva or scleral icterus Neck no lymphadenopathy and supple Resp normal respiratory effort and clear to auscultation bilaterally Cardio regular rate, regular rhythm, no murmurs and peripheral pulses 2+ throughout GI GI Narrative: Abdomen is minimally distended, it is nontender to palpation. No evidence of rigidity. Palpation: soft; Negative for guarding, rigid or rebound tenderness present Narrative: Rectal exam initially deferred secondary to the fact that the patient was actively retching Back/Spine no CVA tenderness Extremity full ROM General Extremety ED: Negative for edema General Extremity: Negative for edema Neuro moves all extremities and no sensory deficits noted Sensorium / Orientation: alert, oriented to person, oriented to place and oriented to time Motor Exam: strength 5/5 throughout Psych mental status grossly normal Skin Rashes: no rashes MDM MDM MDM Narrative Medical decision making narrative: Patient presented secondary to constipation nausea and vomiting. He was actively retching on initial physical exam, I was suspicious for the possibility of a bowel obstruction. Patient was given Zofran and fluids laboratory studies were obtained. CBC and chemistry were basically unremarkable. CT abdomen and pelvis without contrast were performed, per radiology that showed constipation without any evidence of small bowel obstruction. Patient was given an enema in the emergency department and did have a moderate amount of relief. Patient at this point I believe is stable and appropriate for discharge with a course of magnesium citrate. Patient will follow up with his primary care physician. Lab Data Labs: Laboratory Results - last 24 hr 07/14/20 07/14/20 07:20 07:20 WBC 8.9 RBC 5.07 Hgb 14.5 Hct 45.1 MCV 89.0 MCH 28.6 MCHC 32.2 RDW Std Deviation 45.1 H RDW Coeff of [place] 14.1 Plt Count 166 MPV 11.2 Immature Gran % (Auto) 0.500 Neut % (Auto) 63.6 Lymph % (Auto) 24.6 [place] % (Auto) 9.8 Eos % (Auto) 1.2 Baso % (Auto) 0.3 Absolute Neuts (auto) 5.6 Absolute Lymphs (auto) 2.18 Nucleated RBC % 0 Sodium 135 L Potassium 4.5 Chloride 102 Carbon Dioxide 28.0 Anion Gap 5 BUN 17 Creatinine 1.24 Estim Creat Clear Calc 70.97 Est GFR (MDRD) Af Amer 75 Est GFR (MDRD) Non-Af 62 BUN/Creatinine Ratio 13.7 Glucose 189 H Calcium 9.6 Radiography Diagnostic Testing: Radiology Impression Abdomen/Pelvis CT 07/14/20 07:15 IMPRESSION: Constipation without acute small bowel obstruction No acute intra-abdominal/pelvic findings Nonspecific fluid-filled stomach (potential gastroenteritis) Nonemergent findings, as above Electronically Signed: Bulmaro Rivera DO at 8:07 EDT Tel , Service support , Discharge Plan Triage Chief Complaint: Constipation ED Provider: Marko Wright Dx/Rx/DC Orders Clinical Impression: Constipation Instructions: ED Constipation (Adult) Prescriptions: No Action hydroxyzine HCl 50 mg tablet 50 mg PO QHS RF: 0 ezetimibe [Zetia] 10 mg tablet 10 mg PO DAILY RF: 0 losartan 50 mg tablet 50 mg PO DAILY RF: 0 Xarelto 15 mg tablet 20 mg PO DAILY RF: 0 atorvastatin 80 MG tablet 80 mg PO DAILY RF: 0 nitroglycerin 0.4 MG tablet 0.4 mg SUBLINGUAL Q5M PRN (Reason: Angina pain ) Qty: 25 RF: 0 trazodone 50 mg tablet 50 mg PO QHS RF: 0 albuterol sulfate 6.7 GM HFA aerosol inhaler 6.7 gm IH Q4H PRN PRN (Reason: COPD) RF: 0 umeclidinium-vilanterol 1 EACH blister with device 1 puff PO DAILY RF: 0 Victoza 1.8 mg SQ DAILY RF: 0 oxycodone-acetaminophen 1 TABLET tablet 1 tablet PO Q4H PRN (Reason: Pain Score 1-10) RF: 0 insulin aspart U-100 100 UNITS/ML insulin pen See Protocol units SC TIDCM RF: 0 Levocetirizine Dihydrochloride 5 mg PO QHS RF: 0 furosemide 40 MG tablet 40 mg PO DAILY RF: 0 carvedilol 6.25 MG tablet 6.25 mg PO BID RF: 0 insulin aspart U-100 100 UNIT/ML solution 80 units SQ BID RF: 0 amoxicillin-pot clavulanate 1 EACH tablet 1 each PO BID Qty: 80 RF: 0 doxycycline monohydrate 100 MG capsule 100 mg PO BID Qty: 80 RF: 0 collagenase clostridium histo. 1 APPLIC ointment 1 applic TOPICAL DAILY RF: 0 insulin glargine 100 UNITS/ML insulin pen 86 units SC BID RF: 0 valsartan [Diovan] 160 mg Tablet 160 mg PO DAILY RF: 0 Primary Care Provider: Bulmaro Garcia Referrals: Bulmaro Garcia MD [Primary Care Provider] - As Needed Disposition Disposition: Home, self care
[2020-07-14 07:36] LABS: Absolute Lymphocyte Count 2.18 X10^3/uL (0.83-4.51); Absolute Neutrophil Count 5.6 X10^3/uL (2.0-7.7); Basophil# 0.03 X10^3/uL; Basophil% 0.3 % (0-1); Eosinophil# 0.11 X10^3/uL; Eosinophils% 1.2 % (0-5); Hematocrit 45.1 % (40-54); Hemoglobin 14.5 g/dL (13.0-16.5); Lymphocyte # 2.18 X10^3/ul (0.83-4.51); Lymphocyte % 24.6 % (19-41); Mean Corp Hgb Conc 32.2 g/dL (32-36); Mean Corpuscular Hgb 28.6 pg (27.0-32.0); Mean Platelet Vol. 11.2 fl (6.2-12.0); Monocyte# 0.87 X10^3/uL; Monocyte% 9.8 % (0-10); NRBC Flagged by Analyzer 0 % (0-5); Neutrophil # 5.64 X10^3/uL (2.7-7.7); Neutrophil % 63.6 % (47-70); Platelet Count 166 K/mm3 (150-450); RBC Distribution Width CV 14.1 % (11.6-14.6); RBC Distribution Width SD 45.1 fl (35.1-43.9); Red Blood Count 5.07 M/mm3 (4.6-6.2); White Blood Count 8.9 K/mm3 (4.4-11.0)
[2020-07-14 07:45] LABS: Anion Gap 5 (5-15); BUN 17 mg/dL (7-18); BUN/Creat Ratio 13.7 RATIO (10-20); Calcium,Total 9.6 mg/dL (8.5-10.1); Chloride 102 mmol/L (98-107); Creatinine, Serum 1.24 mg/dL (0.70-1.30); EST Glomerular Filtration Rate 62 mL/min (>60); Est Glom Filt Rate - Afr Amer 75 mL/min (>60); Estimated Creatinine Clearance 70.97 ml/min; Glucose 189 mg/dL (74-106); Potassium 4.5 mmol/L (3.5-5.1); Sodium Level 135 mmol/L (136-145)
[2020-07-14] MEDS: Fleet Enema 1 ML RC (08:23)
[2020-07-14] MEDS: Magnesium Citrate 300 ML PO (08:47)
== END 2020-07-14 08:48 | disposition home or self-care (01) ==
PROVIDERS: Emergency Provider Emergency Medicine; PCP Family Medicine
DX: K59.00 Constipation, unspecified (principal); E11.51 Type 2 diabetes mellitus with diabetic peripheral angiopathy without gangrene; E66.9 Obesity, unspecified; E78.5 Hyperlipidemia, unspecified; I10 Essential (primary) hypertension; I25.10 Atherosclerotic heart disease of native coronary artery without angina pectoris; I25.5 Ischemic cardiomyopathy; I27.21 Secondary pulmonary arterial hypertension; J44.9 Chronic obstructive pulmonary disease, unspecified; Z79.01 Long term (current) use of anticoagulants; I25.2 Old myocardial infarction; Z79.4 Long term (current) use of insulin; Z87.891 Personal history of nicotine dependence
CPT/HCPCS: 74176; 80048; 85025; 96361; 96374; 99284; J7030; A4216; J2405

== ENCOUNTER 2020-08-17 08:30 | Outpatient (RCR) | payer MEDICARE, SELFPAY ==
[2020-07-14 06:59] VITALS: BMI 32.4
[2020-07-20 00:36] VITALS: BP 132/68; PULSE 84; RESP 18; TEMP 36.8
[2020-07-20 08:40] VITALS: BMI 32.4
--- NOTE | 2020-07-20 09:43 | PCM.WC.PN ---
History of Present Illness Date of Service: 07/20/20 Chief Complaint: Ulceration right hallux Osteomyelitis right hallux distal phalanx Cellulitis right hallux Peripheral vascular disease History of Wound: The patient is a 64 year old M who presents for worsening right foot cellulitis. Patient has significant medical history including diabetes with neuropathy and peripheral vascular disease and psoriasis. Patient was noted to have ulceration after a biopsy of a suspicious lesion to his right hallux failed to heal. Patient was noted to have worsening of ulceration site which sent him to be admitted to the hospital per further work-up after failing a course of oral doxycycline. Patient was admitted on 05/31/2020 to [facility]. Patient had cultures obtained which grew E. coli, strep anginosus, Enterococcus faecalis, prevotella disiens and prevotella bivia. Infectious disease was consulted and Dr. Peoples had patient discharged on po doxy and augmentin for 6 week course. Patient had an MRI obtained of his right foot which demonstrated cellulitis the medial first digit with osteomyelitis of the dorsal and medial aspect of the base of the first distal phalanx. Dr. Peacock, vascular surgery, was also consulted while in the hospital. Repeat blood flow studies were obtained including L AAS and CTA. Patient is to follow with Dr. Peacock as an outpatient for angioplasty. Patient was discharged from the hospital with instructions to follow-up with the wound care center for continued wound care Patient had intervention with Dr Peacock 07/06/2020 with an iliofemoral angiogram and balloon angioplasty of the right external iliac artery. Patient relates running into a cinderblock while doing yard work over the weekend causing a wound to his anterior allan which has been bleeding. He relates that he is on Xarelto and he bleeds easily. He relates that while wrapping this area he has noticed a new sore to the back of his left leg which is much better now. Progress of Wound: Improvement of the allan wound and hallux wound but with maceration around the hallux wound Subjective Subjective Patient seen and examined resting comfortably. Patient denies any new pedal complaints. Patient denies any nausea, fever, chills, chest pain, shortness of breath, cough, streaking, purulence, vomiting. Objective Data Objective Data Vital Signs: Vital Signs Temp Pulse Resp BP 98.2 F 84 18 132/68 H 07/20/20 00:36 07/20/20 00:36 07/20/20 00:36 07/20/20 00:36 Weight: 117.934 kg Body Mass Index (BMI) 32.4 Physical Exam Narrative Const alert and no apparent distress General Appearance: cooperative and comfortable Lymph Lymphatic: no lymphedema noted Resp normal respiratory effort Effort and Inspection: able to speak in complete sentences Extremity no calf tenderness, negative magdalene and mirza sign no pedal edema General Extremity: no tenderness to palpation of joints or extremities; Negative for clubbing or cyanosis or ecchymosis or erythema Vasc Peripheral Pulses: Yes posterior tibial pulses present right 2+ and dorsalis pedis pulses present right 2+, normal capillary refill, no acute ischemic skin changes noted Skin General Skin Exam: dry skin and venous stasis, decreased hair growth noted; Negative for ecchymosis, eschar, pallor, rashes Wound Narrative: ulcers noted to ulcers noted to right hallux and anterior allan No malodor, purulence, probing to bone, streaking, fluctuation, crepitus. Skin is atrophic and hairless. More granular base. Less erythema/edema noted. Capsule is no longer exposed to hallux wound. Psoriasis rash noted to bilateral lower extremities, improved. Excoriations noted to anterior allan with open wound noted with bleeding. This is superficial. No signs of infection. Maceration noted perihallux wound. Serosanginous drainage from wounds. Posterior right calf noted to have improved. 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 Neuro Gait (Neuro): heel to toe Sensory Exam: extremities light-touch: decreased MSK Motor Exam: strength 5/5 throughout, ROM to foot and ankle joints within normal limits Psych Appearance: appropriate Attitude: calm Debridement Note Debridement Note Post-Debridement Measurements and Additional Note: Post-Debridement Measurements/Treatment [place] - Nurse 1 - General Ulcer Assessment Start: 07/20/20 08:40 Freq: Status: Active Protocol: MAHSA Activity Type Activity Date Activity User E-Sign Co-Sign Detail Recorded Client Recorded Date Recorded By Document 07/20/20 08:40 MW [id number] 07/20/20 08:43 MW 07/20/20 08:40 WC - Today's Visit Information Type of service Follow-up Visit (Physician/DIGITAL PERFORMANCE ANALYST ) Arrival Mode Ambulatory Transfer Assistance None Accompanied by self Patient Identification Verified (Name & Yes ) Patient Requires Transmission-Based No Precautions Safety Precautions NA Finger Stick Blood Sugar(mg/dl) (if 118 indicated): Blood Sugar Stated by Patient Height and Weight Body Mass Index (BMI) 32.4 BMI Classification Obese History Since Last Visit- (Skip if this is Patient's initial visit) Have you changed medications since your No last visit? Any new allergies or adverse reactions No Had a fall/change in ADL's that may No increase risk of falls Signs or symptoms of abuse and/or No neglect since last visit Has dressing in place as prescribed Yes Has compression in place as prescribed Yes Has offloadiing in place as prescribed N/A Experienced any changes in pain level or No management Left Footwear Regular Shoe Right Footwear Regular Shoe Pain Scale: 0-10 Numeric Is Patient Pain Free? Yes WC - Nurse 1 - General Ulcer Measurement Start: 07/20/20 08:40 Freq: Status: Active Protocol: Activity Type Activity Date Activity User E-Sign Co-Sign Detail Recorded Client Recorded Date Recorded By Document 07/20/20 08:40 MW [id number] 07/20/20 08:43 MW 07/20/20 08:40 Wound Center Nurse 1 #2- R ALLAN CLUSTER -Combined with other wound No -Current Size (cm) - Length 0.1 -Current Size (cm) - Width 0.1 -Current Size (cm) - Depth 0.1 -Total Square Cm 0.01 -Photo Taken No -Epithelialization None Present -Tunneling No -Undermining/Tunneling No -Circular Undermining No -Exudate Amt None Present -Wound Margin Flat & Intact -Granulation Amt None Present (0 %) -Granulation Quality N/A -Slough/Fibrin Yes -Necrosis Amt Large (67-100%) -Necrotic Tissue Type Adherent Slough -Structure Exposed N/A -Texture (Chantelle-wound Skin Appearance) Assessed, Scarring -Moisture (Chantelle-wound Skin Appearance) Assessed,Dry/ Scaly -Color (Chantelle-wound Skin Appearance) Assessed, Hemosiderin Staining -Temperature (Chantelle-wound Skin No Abnormality Appearance) (Pt Warm) -Ulcer Cleansing Rinsed/ Irrigated with Saline -Foul Odor after Cleansing No -Anesthetic Used 4% Lidocaine Solution #1- R LATERAL GR TOE -Combined with other wound No -Current Size (cm) - Length 0.5 -Current Size (cm) - Width 0.6 -Current Size (cm) - Depth 0.1 -Total Square Cm 0.30 -Photo Taken No -Epithelialization None Present -Tunneling No -Undermining/Tunneling No -Circular Undermining No -Exudate Amt None Present -Exudate Type Serosanguineous -Wound Margin Distinct, Outline Attached -Granulation Amt Medium (34-66%) -Granulation Quality [place] -Slough/Fibrin Yes -Necrotic Tissue Type Adherent Slough -Texture (Chantelle-wound Skin Appearance) Assessed, Scarring -Moisture (Chantelle-wound Skin Appearance) Assessed -Color (Chantelle-wound Skin Appearance) Assessed -Temperature (Chantelle-wound Skin No Abnormality Appearance) (Pt Warm) -Tenderness on Palpation (Chantelle-wound Yes Skin Appearance) -Ulcer Cleansing Rinsed/ Irrigated with Saline -Foul Odor after Cleansing No -Anesthetic Used 4% Lidocaine Solution Lower Limb Edema Present No WC - Nurse 2 - General Ulcer CM Notes Start: 07/20/20 08:40 Freq: Status: Active Protocol: Activity Type Activity Date Activity User E-Sign Co-Sign Detail Recorded Client Recorded Date Recorded By Document 07/20/20 09:07 SABA [id number] 07/20/20 09:19 SABA 07/20/20 09:07 Wound Center Nurse 2 #2- R ALLAN CLUSTER -Time 09:08 -Correct Patient Yes -Correct Side, Site, Position Yes -Correct Procedure Yes -Procedure Performed Yes -Type of Procedure Debridement -Clinical Debridement Subcutaneous -Tissue Removed Subcutaneous -Post Debridement (cm) - Length 0.7 -Post Debridement (cm) - Width 0.3 -Post Debridement (cm) - Depth 0.1 -Total Square (Post) (cm) 0.21 -Area of Debridement (cm) - Length 0.7 -Area of Debridement (cm) - Width 0.3 -Total Square (Area) (cm) 0.21 -Tunneling No -Undermining/Tunneling No -Circular Undermining No -Wound/Ulcer Outcome Not Healed -Ulcer Cleansing Rinsed/ Irrigated with Saline -Foul Odor after Cleansing No -Bioengineered Tissue No -Bleeding Controlled with Pressure -Offloading No -Treatment Response Procedure Tolerated Well -Debridement - Subq, 1st 20sq cm Yes #1- R LATERAL GR TOE -Time 09:08 -Correct Patient Yes -Correct Side, Site, Position Yes -Correct Procedure Yes -Procedure Performed Yes -Type of Procedure Debridement -Clinical Debridement Subcutaneous -Tissue Removed Subcutaneous -Post Debridement (cm) - Length 0.6 -Post Debridement (cm) - Width 0.4 -Post Debridement (cm) - Depth 0.1 -Total Square (Post) (cm) 0.24 -Area of Debridement (cm) - Length 0.6 -Area of Debridement (cm) - Width 0.4 -Total Square (Area) (cm) 0.24 -Tunneling No -Circular Undermining No -Wound/Ulcer Outcome Not Healed -Ulcer Cleansing Rinsed/ Irrigated with Saline -Foul Odor after Cleansing No -Bioengineered Tissue No -Bleeding Controlled with Pressure -Offloading Yes -Type of Offloading Surgical Shoe -Treatment Response Procedure Tolerated Well -Debridement - Subq, 1st 20sq cm No Pain Scale: 0-10 Numeric Is Patient Pain Free? Yes - Nurse 3 - General Ulcer D/C NN Start: 07/20/20 08:40 Freq: Status: Active Protocol: Activity Type Activity Date Activity User E-Sign Co-Sign Detail Recorded Client Recorded Date Recorded By Document 07/20/20 09:19 [id number] 07/20/20 09:20 SABA 07/20/20 09:19 Wound Care Nurse 3 #2- R ALLAN CLUSTER -Ulcer Cleansing Rinsed/ Irrigated with Saline -Foul Odor after Cleansing No -Primary Dressing Applied C Hydrogel ($), NonAdherent Contact Layer -Primary Dressing Covered/Secured with Dry Gauze & Roll Gauze, Secured with Tape #1- R LATERAL GR TOE -Ulcer Cleansing Rinsed/ Irrigated with Saline -Foul Odor after Cleansing No -Primary Dressing Applied C Hydrogel ($), NonAdherent Contact Layer -Primary Dressing Covered/Secured with Dry Gauze & Roll Gauze, Secured with Tape Pain Scale: 0-10 Numeric Is Patient Pain Free? Yes - Visit Discharge Discharge Condition Stable Ambulatory Status Ambulatory Transportation Private Auto Medication Reconcilliation completed & Yes provided to patient/care provider Clinical Summary of Care Provided Yes Wound debrided: Medial hallux and anterior allan Laterality: Right Wound Grade/Stage: Li 3 Type of Debridement: Excisional debridement Anesthesia Used: 4% Lidocaine Solution Depth: in the subcutaneous layer Percentage of wound debrided: 100 Instrument Used: 3mm curette Tissue Removed: includes fibrous, devitalized, biofilm, callus and slough tissue Severity: Fat Layer Exposed Amount of bleeding with debridement: Mild Bleeding Controlled with: Pressure Patient tolerated procedure: Patient tolerated procedure well Assessment/Plan Assessment/Plan (1) Ulcer of right lower extremity with fat layer exposed: CODE(S): L97.912 - Non-pressure chronic ulcer of unspecified part of right lower leg with fat layer exposed (2) 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 exposed: CODE(S): L97.512 - 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 exposed (3) PAD (peripheral artery disease): CODE(S): I73.9 - Peripheral vascular disease, unspecified (4) Osteomyelitis: CODE(S): M86.9 - Osteomyelitis, unspecified QUALIFIERS: Laterality: right Osteomyelitis location: foot Osteomyelitis type: other acute Qualified Code(s): M86.171 - Other acute osteomyelitis, right ankle and foot (5) Diabetic neuropathy associated with type 2 diabetes mellitus: CODE(S): E11.40 - Type 2 diabetes mellitus with diabetic neuropathy, unspecified QUALIFIERS: Diabetes mellitus complication detail: diabetic polyneuropathy Qualified Code(s): E11.42 - Type 2 diabetes mellitus with diabetic polyneuropathy (6) Psoriasis: CODE(S): L40.9 - Psoriasis, unspecified PLAN: Patient seen and examined. Patient noted to have improved wound to the right hallux and anterior allan with more granulation tissue noted. There is noted less edema and erythema. preulcerative area to the posterior calf right has resolved. Some maceration noted to to hallux wound. Ulcerations was sharply debrided after verbal consent was given by patient without incident. Patient is to use hydrogel daily dressing changes. Patient is the pad of posterior calf well to prevent future wounds. Patient relates that he has wound supplies. Patient relates that today is his last day of antibiotics per infectious disease. Patient had an arteriogram with bilateral iliofemoral angiogram and a balloon angioplasty to the right external iliac artery performed by Dr. Peacock on 07/06/2020. Operative report was recieved and reviewed showing iliofemoral angiogram with balloon angioplasty to right external iliac artery. Patient presents today in surgical shoe for offloading. Patient relates that even after having offloading insert go down to the bottom of the shoe he still felt unstable and was afraid he was going to roll his ankle. States that he removed the offloading insert to the surgical shoe and feels much more stable. Patient educated on the importance of proper wound care, smoking cessation, offloading, proper diet with good nutrition, blood sugar control and their impact on wound healing. All questions answered. Patient is to follow-up in 1 week. This note was generated with [employer] dictation software. It may contain incorrect words, spelling, and punctuation that were not noted in checking the note before signing.
[2020-07-27 08:42] VITALS: BP 125/67; PULSE 77; RESP 18; TEMP 36.6; BMI 32.4
--- NOTE | 2020-07-28 09:45 | PN.PCM_ITS ---
History of Present Illness Date of Service: 07/27/20 Chief Complaint: Ulceration right hallux Osteomyelitis right hallux distal phalanx Peripheral vascular disease History of Wound: The patient is a 64 year old M who presents for worsening right foot cellulitis. Patient has significant medical history including diabetes with neuropathy and peripheral vascular disease and psoriasis. Patient was noted to have ulceration after a biopsy of a suspicious lesion to his right hallux failed to heal. Patient was noted to have worsening of ulceration site which sent him to be admitted to the hospital per further work-up after failing a course of oral doxycycline. Patient was admitted on 05/31/2020 to [facility]. Patient had cultures obtained which grew E. coli, strep anginosus, Enterococcus faecalis, prevotella disiens and prevotella bivia. Infectious disease was consulted and Dr. Peoples had patient discharged on po doxy and augmentin for 6 week course. Patient had an MRI obtained of his right foot which demonstrated cellulitis the medial first digit with osteomyelitis of the dorsal and medial aspect of the base of the first distal phalanx. Dr. Peacock, vascular surgery, was also consulted while in the hospital. Repeat blood flow studies were obtained incl uding L AAS and CTA. Patient is to follow with Dr. Peacock as an outpatient for angioplasty. Patient was discharged from the hospital with instructions to follow-up with the wound care center for continued wound care Patient had intervention with Dr Peacock 07/06/2020 with an iliofemoral angiogram and balloon angioplasty of the right external iliac artery. Patient relates running into a cinderblock while doing yard work over the weekend causing a wound to his anterior allan which has been bleeding. He relates that he is on Xarelto and he bleeds easily. He relates that while wrapping this area he has noticed a new sore to the back of his left leg which is healed Progress of Wound: Improvement of the allan wound and hallux wound and with less maceration around the hallux wound Subjective Subjective Patient seen and examined resting comfortably. Patient denies any new pedal complaints. Patient denies any nausea, fever, chills, chest pain, shortness of breath, cough, streaking, purulence, vomiting. Patient has complaint of constipation Objective Data Objective Data Vital Signs: Vital Signs Temp Pulse Resp BP 97.9 F 77 18 125/67 H 07/27/20 08:42 07/27/20 08:42 07/27/20 08:42 07/27/20 08:42 Weight: 117.934 kg Body Mass Index (BMI) 32.4 Physical Exam Narrative Const alert and no apparent distress General Appearance: cooperative and comfortable Lymph Lymphatic: no lymphedema noted Resp normal respiratory effort Effort and Inspection: able to speak in complete sentences Extremity no calf tenderness, negative magdalene and mirza sign no pedal edema General Extremity: no tenderness to palpation of joints or extremities; Negative for clubbing or cyanosis or ecchymosis or erythema Vasc Peripheral Pulses: Yes posterior tibial pulses present right 2+ and dorsalis pedis pulses present right 2+, normal capillary refill, no acute ischemic skin changes noted Skin General Skin Exam: dry skin and venous stasis, decreased hair growth noted; Negative for ecchymosis, eschar, pallor, rashes Wound Narrative: ulcers noted to ulcers noted to right hallux and anterior allan No malodor, purulence, probing to bone, streaking, fluctuation, crepitus. Skin is atrophic and hairless. More granular base. Less erythema/edema noted. Capsule is no longer exposed to hallux wound. Psoriasis rash noted to bilateral lower extremities, improved. Ulcer noted to anterior allan with open wound smaller in appearance with minimal drainage. This is superficial. No signs of infection. Maceration noted perihallux wound. Serosanginous drainage from wounds. Posterior right calf noted to have healed. 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 Neuro Gait (Neuro): heel to toe Sensory Exam: extremities light-touch: decreased MSK Motor Exam: strength 5/5 throughout, ROM to foot and ankle joints within normal limits Psych Appearance: appropriate Attitude: calm Debridement Note Debridement Note Post-Debridement Measurements and Additional Note: Post-Debridement Measur ements/Treatment WC - Nurse 1 - General Ulcer Assessment Start: 07/20/20 08:40 Freq: Status: Active Protocol: MOEEXT Activity Type Activity Date Activity User E-Sign Co-Sign Detail Recorded Client Recorded Date Recorded By Document 07/20/20 08:40 MW [id number] 07/20/20 08:43 MW Document 07/27/20 08:42 DL [id number] 07/27/20 08:49 DL 07/20/20 07/27/20 08:40 08:42 - Today's Visit Information Type of service Follow-up Visit Follow-up Visit (Physician/RUG CUTTER HELPER (Physician/RUG CUTTER HELPER ) ) Arrival Mode Ambulatory Ambulatory Transfer Assistance None Transfer Board Accompanied by self Patient Identification Verified (Name & Yes ) Patient Requires Transmission-Based No No Precautions Safety Precautions NA Finger Stick Blood Sugar(mg/dl) (if 118 119 indicated): Blood Sugar Stated by Stated by Patient Patient Height and Weight Body Mass Index (BMI) 32.4 32.4 BMI Classification Obese Obese Vital Signs Temperature (97.8 F-99.1 F) 97.9 F Temperature Source Temporal Pulse Rate (60-100) 77 Pulse Location Monitor Respiratory Rate (12-18) 18 Respiratory rate source Observation Blood Pressure (90/60-120/80) 125/67 H Blood Pressure Mean (mm Hg) 86 Source Monitor History Since Last Visit- (Skip if this is Patient's initial visit) Have you changed medications since your No No last visit? Any new allergies or adverse reactions No No Had a fall/change in ADL's that may No No increase risk of falls Signs or symptoms of abuse and/or No No neglect since last visit Have you been in the hospital since your No last visit? Has dressing in place as prescribed Yes Yes Has compression in place as prescribed Yes No Has offloadiing in place as prescribed N/A Yes Experienced any changes in pain level or No No management Left Footwear Regular Shoe Right Footwear Regular Shoe Surgical Shoe with pressure relief insole Pain Scale: 0-10 Numeric Is Patient Pain Free? Yes Yes - Nurse 1 - General Ulcer Measurement Start: 07/20/20 08:40 Freq: Status: Active Protocol: Activity Type Activity Date Activity User E-Sign Co-Sign Detail Recorded Client Recorded Date Recorded By Document 07/20/20 08:40 MW [id number] 07/20/20 08:43 MW Document 07/27/20 08:42 DL [id number] 07/27/20 08:49 DL 07/20/20 07/27/20 08:40 08:42 Wound Center Nurse 1 #2- R ALLAN CLUSTER -Combined with other wound No -Current Size (cm) - Length 0.1 0.4 -Current Size (cm) - Width 0.1 0.2 -Current Size (cm) - Depth 0.1 0.1 -Total Square Cm 0.01 0.08 -Photo Taken No No -Epithelialization None Present -Tunneling No -Undermining/Tunneling No -Circular Undermining No -Exudate Amt None Present None Present -Wound Margin Flat & Intact Thickened -Granulation Amt None Present (0 None Present (0 %) %) -Granulation Quality N/A -Slough/Fibrin Yes -Necrosis Amt Large (67-100%) Small (1-33%) -Necrotic Tissue Type Adherent Slough Eschar -Structure Exposed N/A N/A -Texture (Chantelle-wound Skin Appearance) Assessed, Rash Scarring -Moisture (Chantelle-wound Skin Appearance) Assessed,Dry/ Dry/Scaly Scaly -Color (Chantelle-wound Skin Appearance) Assessed, No Abnormality Hemosiderin Staining -Temperature (Chantelle-wound Skin No Abnormality No Abnormality Appearance) (Pt Warm) (Pt Warm) -Ulcer Cleansing Rinsed/ Rinsed/ Irrigated with Irrigated with Saline Saline -Foul Odor after Cleansing No Yes, Due to Product Use -Anesthetic Used 4% Lidocaine 4% Lidocaine Solution Solution #1- R LATERAL GR TOE -Combined with other wound No -Current Size (cm) - Length 0.5 0.3 -Current Size (cm) - Width 0.6 0.4 -Current Size (cm) - Depth 0.1 0.1 -Total Square Cm 0.30 0.12 -Photo Taken No No -Epithelialization None Present -Tunneling No -Undermining/Tunneling No -Circular Undermining No -Exudate Amt None Present Small -Exudate Type Serosanguineous Serosanguineous -Wound Margin Distinct, Thickened Outline Attached -Granulation Amt Medium (34-66%) Small (1-33%) -Granulation Quality [place] -Slough/Fibrin Yes -Necrosis Amt Small (1-33%) -Necrotic Tissue Type Adherent Slough Adherent Slough -Structure Exposed N/A -Texture (Chantelle-wound Skin Appearance) Assessed, Scarring Scarring -Moisture (Chantelle-wound Skin Appearance) Assessed Maceration -Color (Chantelle-wound Skin Appearance) Assessed Rubor -Temperature (Chantelle-wound Skin No Abnormality No Abnormality Appearance) (Pt Warm) (Pt Warm) -Tenderness on Palpation (Chantelle-wound Yes No Skin Appearance) -Ulcer Cleansing Rinsed/ Rinsed/ Irrigated with Irrigated with Saline Saline -Foul Odor after Cleansing No -Anesthetic Used 4% Lidocaine 4% Lidocaine Solution Solution, Cetacaine Lower Limb Edema Present No WC - Nurse 2 - General Ulcer CM Notes Start: 07/20/20 08:40 Freq: Status: Active Protocol: Activity Type Activity Date Activity User E-Sign Co-Sign Detail Recorded Client Recorded Date Recorded By Document 07/20/20 09:07 JF [id number] 07/20/20 09:19 JF Document 07/27/20 09:02 JF [id number] 07/27/20 09:06 07/20/20 07/27/20 09:07 09:02 Wound Center Nurse 2 #2- R ALLAN CLUSTER -Time 09:08 09:03 -Correct Patient Yes Yes -Correct Side, Site, Position Yes Yes -Correct Procedure Yes Yes -Procedure Performed Yes Yes -Type of Procedure Debridement Debridement -Clinical Debridement Subcutaneous Subcutaneous -Tissue Removed Subcutaneous Subcutaneous -Post Debridement (cm) - Length 0.7 0.4 -Post Debridement (cm) - Width 0.3 0.1 -Post Debridement (cm) - Depth 0.1 0.1 -Total Square (Post) (cm) 0.21 0.04 -Area of Debridement (cm) - Length 0.7 0.4 -Area of Debridement (cm) - Width 0.3 0.1 -Total Square (Area) (cm) 0.21 0.04 -Tunneling No No -Undermining/Tunneling No No -Circular Undermining No No -Wound/Ulcer Outcome Not Healed Not Healed -Ulcer Cleansing Rinsed/ Irrigated with Saline -Foul Odor after Cleansing No No -Bioengineered Tissue No No -Bleeding Controlled with Pressure Silver Nitrate -Offloading No No -Treatment Response Procedure Procedure Tolerated Well Tolerated Well -Debridement - Subq, 1st 20sq cm Yes Yes #1- R LATERAL GR TOE -Time 09:08 09:03 -Correct Patient Yes Yes -Correct Side, Site, Position Yes Yes -Correct Procedure Yes Yes -Procedure Performed Yes Yes -Type of Procedure Debridement Debridement -Clinical Debridement Subcutaneous Subcutaneous -Tissue Removed Subcutaneous Subcutaneous -Post Debridement (cm) - Length 0.6 0.4 -Post Debridement (cm) - Width 0.4 0.5 -Post Debridement (cm) - Depth 0.1 0.1 -Total Square (Post) (cm) 0.24 0.20 -Area of Debridement (cm) - Length 0.6 0.4 -Area of Debridement (cm) - Width 0.4 0.5 -Total Square (Area) (cm) 0.24 0.20 -Tunneling No No -Undermining/Tunneling No -Circular Undermining No No -Wound/Ulcer Outcome Not Healed Not Healed -Ulcer Cleansing Rinsed/ Rinsed/ Irrigated with Irrigated with Saline Saline -Foul Odor after Cleansing No No -Bioengineered Tissue No No -Bleeding Controlled with Pressure Pressure -Offloading Yes Yes -Type of Offloading Surgical Shoe Surgical Shoe -Treatment Response Procedure Procedure Tolerated Well Tolerated Well -Debridement - Subq, 1st 20sq cm No No Pain Scale: 0-10 Numeric Is Patient Pain Free? Yes Yes - Nurse 3 - General Ulcer D/C NN Start: 07/20/20 08:40 Freq: Status: Active Protocol: Activity Type Activity Date Activity User E-Sign Co-Sign Detail Recorded Client Recorded Date Recorded By Document 07/20/20 09:19 [id number] 07/20/20 09:20 Document 07/27/20 09:27 [id number] 07/27/20 09:27 07/20/20 07/27/20 09:19 09:27 Wound Care Nurse 3 #2- R ALLAN CLUSTER -Ulcer Cleansing Rinsed/ Rinsed/ Irrigated with Irrigated with Saline Saline -Foul Odor after Cleansing No No -Primary Dressing Applied C Hydrogel ($), C Hydrogel ($) NonAdherent Contact Layer -Primary Dressing Covered/Secured with Dry Gauze & Dry Gauze Roll Gauze, Secured with Tape #1- R LATERAL GR TOE -Ulcer Cleansing Rinsed/ Rinsed/ Irrigated with Irrigated with Saline Saline -Foul Odor after Cleansing No No -Primary Dressing Applied C Hydrogel ($), C Hydrogel ($) NonAdherent Contact Layer -Primary Dressing Covered/Secured with Dry Gauze & Dry Gauze Roll Gauze, Secured with Tape Pain Scale: 0-10 Numeric Is Patient Pain Free? Yes Yes - Visit Discharge Discharge Condition Stable Stable Ambulatory Status Ambulatory Ambulatory Transportation Private Auto Private Auto Medication Reconcilliation completed & Yes Yes provided to patient/care provider Clinical Summary of Care Provided Yes Yes Wound debrided: Hallux Laterality: Right Wound Grade/Stage: Li 3 Type of Debridement: Excisional debridement Anesthesia Used: 4% Lidocaine Solution Depth: in the subcutaneous layer Percentage of wound debrided: 100 Instrument Used: 3mm curette Tissue Removed: includes fibrous, devitalized, biofilm, callus and slough tissue Severity: Fat Layer Exposed Amount of bleeding with debridement: Mild Bleeding Controlled with: Pressure Patient tolerated procedure: Patient tolerated procedure well Additional Wound Wound debrided: Anterior allan Laterality: Right Wound Grade/Stage: Li 1 Type of Debridement: Excisional debridement Anesthesia Used: 4% Lidocaine Solution Depth: in the subcutaneous layer Percentage of wound debrided: 100 Instrument Used: 3mm curette Tissue Removed: Includes fibrous, devitalized, biofilm, callus and slough tissue Severity: Fat Layer Exposed Amount of bleeding with debridement: Mild Bleeding Controlled with: Pressure Patient tolerated procedure: Patient tolerated procedure well Assessment/Plan Assessment/Plan (1) Ulcer of right lower extremity with fat layer exposed: CODE(S): L97.912 - Non-pressure chronic ulcer of unspecified part of right lower leg with fat layer exposed (2) 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 exposed: CODE(S): L97.512 - 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 exposed (3) PAD (peripheral artery disease): CODE(S): I73.9 - Peripheral vascular disease, unspecified (4) Osteomyelitis: CODE(S): M86.9 - Osteomyelitis, unspecified QUALIFIERS: Osteomyelitis type: other acute Osteomyelitis location: foot Laterality: right Qualified Code(s): M86.171 - Other acute osteomyelitis, right ankle and foot (5) Diabetic neuropathy associated with type 2 diabetes mellitus: CODE(S): E11.40 - Type 2 diabetes mellitus with diabetic neuropathy, unspecified QUALIFIERS: Diabetes mellitus complication detail: diabetic polyneuropathy Qualified Code(s): E11.42 - Type 2 diabetes mellitus with diabetic polyneuropathy (6) Psoriasis: CODE(S): L40.9 - Psoriasis, unspecified PLAN: Patient seen and examined. Patient noted to have improved wound to the right hallux and anterior allan with more granulation tissue noted. Right anterior allan is almost healed. There is noted less edema and erythema. preulcerative area to the posterior calf right has resolved. Some maceration noted to to hallux wound. Patient is also complaining of constipation. He relates that he has an appoint with Dr. Garcia to get this treated. He has been to the emergency room for this issue as well. Ulcerations was sharply debrided after verbal consent was given by patient without incident. Patient is to use hydrogel daily dressing changes. Patient is the pad of posterior calf well to prevent future wounds. Patient relates that he has wound supplies. Patient relates that today is his last day of antibiotics per infectious disease. Patient had an arteriogram with bilateral iliofemoral angiogram and a balloon angioplasty to the right external iliac artery performed by Dr. Peacock on 07/06/2020. Operative report was received and reviewed showing iliofemoral angiogram with balloon angioplasty to right external iliac artery. Patient presents today in surgical shoe for offloading. Patient relates that even after having offloading insert go down to the bottom of the shoe he still felt unstable and was afraid he was going to roll his ankle. States that he removed the offloading insert to the surgical shoe and feels much more stable. Patient educated on the importance of proper wound care, smoking cessation, offloading, proper diet with good nutrition, blood sugar control and their impact on wound healing. All questions answered. Patient is to follow-up in 1 week. This note was generated with [employer] dictation software. It may contain incorrect words, spelling, and punctuation that were not noted in checking the note before signing.
[2020-08-03 08:52] VITALS: BP 128/66; PULSE 88; RESP 16; TEMP 36.9; BMI 32.4
--- NOTE | 2020-08-03 09:36 | PN.PCM_ITS ---
History of Present Illness Date of Service: 08/03/20 Chief Complaint: Ulceration right hallux Osteomyelitis right hallux distal phalanx Peripheral vascular disease History of Wound: The patient is a 64 year old M who presents for worsening right foot cellulitis. Patient has significant medical history including diabetes with neuropathy and peripheral vascular disease and psoriasis. Patient was noted to have ulceration after a biopsy of a suspicious lesion to his right hallux failed to heal. Patient was noted to have worsening of ulceration site which sent him to be admitted to the hospital per further work-up after failing a course of oral doxycycline. Patient was admitted on 05/31/2020 to [facility]. Patient had cultures obtained which grew E. coli, strep anginosus, Enterococcus faecalis, prevotella disiens and prevotella bivia. Infectious disease was consulted and Dr. Peoples had patient discharged on po doxy and augmentin for 6 week course. Patient had an MRI obtained of his right foot which demonstrated cellulitis the medial first digit with osteomyelitis of the dorsal and medial aspect of the base of the first distal phalanx. Dr. Peacock, vascular surgery, was also consulted while in the hospital. Repeat blood flow studies were obtained incl uding L AAS and CTA. Patient is to follow with Dr. Peacock as an outpatient for angioplasty. Patient was discharged from the hospital with instructions to follow-up with the wound care center for continued wound care Patient had intervention with Dr Peacock 07/06/2020 with an iliofemoral angiogram and balloon angioplasty of the right external iliac artery. Patient relates running into a cinderblock while doing yard work over the weekend causing a wound to his anterior nelson which has been bleeding. He relates that he is on Xarelto and he bleeds easily. He relates that while wrapping this area he has noticed a new sore to the back of his left leg which is healed Progress of Wound: Nelson wound has healed. Hallux wound is much improved Subjective Subjective Patient seen and examined resting comfortably. Patient denies any new pedal complaints. Patient denies any nausea, fever, chills, chest pain, shortness of breath, cough, streaking, purulence, vomiting. Objective Data Objective Data Vital Signs: Vital Signs Temp Pulse Resp BP 98.4 F 88 16 128/66 H 08/03/20 08:52 08/03/20 08:52 08/03/20 08:52 08/03/20 08:52 Oxygen Delivery Method Room Air Weight: 117.934 kg Body Mass Index (BMI) 32.4 Physical Exam Narrative Const alert and no apparent distress General Appearance: cooperative and comfortable Lymph Lymphatic: no lymphedema noted Resp normal respiratory effort Effort and Inspection: able to speak in complete sentences Extremity no calf tenderness, negative magdalene and mirza sign no pedal edema General Extremity: no tenderness to palpation of joints or extremities; Negative for clubbing or cyanosis or ecchymosis or erythema Vasc Peripheral Pulses: Yes posterior tibial pulses present right 2+ and dorsalis pedis pulses present right 2+, normal capillary refill, no acute ischemic skin changes noted Skin General Skin Exam: dry skin and venous stasis, decreased hair growth noted; Negative for ecchymosis, eschar, pallor, rashes Wound Narrative: ulcer noted to right hallux. anterior nelson is healed. No malodor, purulence, probing to bone, streaking, fluctuation, crepitus. Skin is atrophic and hairless. More granular base. Less erythema/edema noted. To fascia. Less maceration. Psoriasis rash noted to bilateral lower extremities, improved. 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 Neuro Gait (Neuro): heel to toe Sensory Exam: extremities light-touch: decreased MSK Motor Exam: strength 5/5 throughout, ROM to foot and ankle joints within normal limits Psych Appearance: appropriate Attitude: calm Debridement Note Debridement Note Post-Debridement Measurements and Additional Note: Post-Debridement Measurements/Treatment - Nurse 1 - General Ulcer Assessment Start: 07/20/20 08:40 Freq: Status: Active Protocol: [email or web address] Activity Type Activity Date Activity User E-Sign Co-Sign Detail Recorded Client Recorded Date Recorded By Document 07/20/20 08:40 MW [id number] 07/20/20 08:43 MW Document 07/27/20 08:42 DL [id number] 07/27/20 08:49 DL Document 08/03/20 08:52 BMF [id number] 08/03/20 08:57 BMF 07/20/20 07/27/20 08/03/20 08:40 08:42 08:52 - Today's Visit Information Type of service Follow-up Visit Follow-up Visit Follow-up Visit (Physician/KNITTING MACHINE OPERATOR (Physician/KNITTING MACHINE OPERATOR (Physician/KNITTING MACHINE OPERATOR ) ) ) Arrival Mode Ambulatory Ambulatory Ambulatory Transfer Assistance None Transfer Board None Accompanied by self Patient Identification Verified (Name & Yes Yes ) Patient Requires Transmission-Based No No No Precautions Safety Precautions NA Finger Stick Blood Sugar(mg/dl) (if 118 119 indicated): Blood Sugar Stated by Stated by Patient Patient Height and Weight Body Mass Index (BMI) 32.4 32.4 32.4 BMI Classification Obese Obese Obese Vital Signs Temperature (97.8 F-99.1 F) 97.9 F 98.4 F Temperature Source Temporal Temporal Pulse Rate (60-100) 77 88 Pulse Location Monitor Monitor Respiratory Rate (12-18) 18 16 Respiratory rate source Observation Observation Oxygen Delivery Method Room Air Blood Pressure (90/60-120/80) 125/67 H 128/66 H Blood Pressure Mean (mm Hg) 86 86 Source Monitor Monitor Position Sitting Blood Pressure Location Left Arm History Since Last Visit- (Skip if this is Patient's initial visit) Have you changed medications since your No No No last visit? Any new allergies or adverse reactions No No No Had a fall/change in ADL's that may No No No increase risk of falls Signs or symptoms of abuse and/or No No No neglect since last visit Have you been in the hospital since your No No last visit? Has dressing in place as prescribed Yes Yes No Has compression in place as prescribed Yes No N/A Has offloadiing in place as prescribed N/A Yes Yes Experienced any changes in pain level or No No No management Left Footwear Regular Shoe Regular Shoe Right Footwear Regular Shoe Surgical Shoe Surgical Shoe with pressure with pressure relief insole relief insole Pain Scale: 0-10 Numeric Is Patient Pain Free? Yes Yes Yes WC - Nurse 1 - General Ulcer Measurement Start: 07/20/20 08:40 Freq: Status: Active Protocol: Activity Type Activity Date Activity User E-Sign Co-Sign Detail Recorded Client Recorded Date Recorded By Document 07/20/20 08:40 MW [id number] 07/20/20 08:43 MW Document 07/27/20 08:42 DL [id number] 07/27/20 08:49 DL Document 08/03/20 08:52 BMF [id number] 08/03/20 08:57 BMF 07/20/20 07/27/2021 08:40 08:42 08:52 Wound Center Nurse 1 #2- R NELSON CLUSTER -Combined with other wound No No -Current Size (cm) - Length 0.1 0.4 0.1 -Current Size (cm) - Width 0.1 0.2 0.1 -Current Size (cm) - Depth 0.1 0.1 0.1 -Total Square Cm 0.01 0.08 0.01 -Photo Taken No No -Epithelialization None Present Large 67-100% -Tunneling No -Undermining/Tunneling No -Circular Undermining No -Exudate Amt None Present None Present -Wound Margin Flat & Intact Thickened -Granulation Amt None Present (0 None Present (0 %) %) -Granulation Quality N/A -Slough/Fibrin Yes -Necrosis Amt Large (67-100%) Small (1-33%) -Necrotic Tissue Type Adherent Slough Eschar -Structure Exposed N/A N/A -Texture (Chantelle-wound Skin Appearance) Assessed, Rash Assessed, Scarring Scarring -Moisture (Chantelle-wound Skin Appearance) Assessed,Dry/ Dry/Scaly Assessed Scaly -Color (Chantelle-wound Skin Appearance) Assessed, No Abnormality Assessed Hemosiderin Staining -Temperature (Chantelle-wound Skin No Abnormality No Abnormality No Abnormality Appearance) (Pt Warm) (Pt Warm) (Pt Warm) -Ulcer Cleansing Rinsed/ Rinsed/ Rinsed/ Irrigated with Irrigated with Irrigated with Saline Saline Saline -Foul Odor after Cleansing No Yes, Due to No Product Use -Anesthetic Used 4% Lidocaine 4% Lidocaine Solution Solution #1- R LATERAL GR TOE -Combined with other wound No No -Current Size (cm) - Length 0.5 0.3 0.3 -Current Size (cm) - Width 0.6 0.4 0.3 -Current Size (cm) - Depth 0.1 0.1 0.1 -Total Square Cm 0.30 0.12 0.09 -Photo Taken No No No -Epithelialization None Present Medium 34-66% -Tunneling No No -Undermining/Tunneling No No -Circular Undermining No No -Exudate Amt None Present Small Small -Exudate Type Serosanguineous Serosanguineous Serous -Wound Margin Distinct, Thickened Flat & Intact Outline Attached -Granulation Amt Medium (34-66%) Small (1-33%) Large (67-100%) -Granulation Quality Felton Felton Red -Slough/Fibrin Yes No -Necrosis Amt Small (1-33%) None Present (0 %) -Necrotic Tissue Type Adherent Slough Adherent Slough -Structure Exposed N/A -Texture (Chantelle-wound Skin Appearance) Assessed, Scarring Assessed, Scarring Scarring -Moisture (Chantelle-wound Skin Appearance) Assessed Maceration Assessed, Maceration -Color (Chantelle-wound Skin Appearance) Assessed Rubor Assessed,Palor -Temperature (Chantelle-wound Skin No Abnormality No Abnormality No Abnormality Appearance) (Pt Warm) (Pt Warm) (Pt Warm) -Tenderness on Palpation (Chantelle-wound Yes No No Skin Appearance) -Ulcer Cleansing Rinsed/ Rinsed/ Rinsed/ Irrigated with Irrigated with Irrigated with Saline Saline Saline -Foul Odor after Cleansing No No -Anesthetic Used 4% Lidocaine 4% Lidocaine 5% Lidocaine Solution Solution, Gel Cetacaine Lower Limb Edema Present No WC - Nurse 2 - General Ulcer CM Notes Start: 07/20/20 08:40 Freq: Status: Active Protocol: Activity Type Activity Date Activity User E-Sign Co-Sign Detail Recorded Client Recorded Date Recorded By Document 07/20/20 09:07 [id number] 07/20/20 09:19 Document 07/27/20 09:02 [id number] 07/27/20 09:06 Document 08/03/20 09:10 MW [id number] 08/03/20 09:12 MW 07/20/20 07/27/20 08/03/20 09:07 09:02 09:10 Wound Center Nurse 2 #2- R NELSON CLUSTER -Time 09:08 09:03 09:11 -Correct Patient Yes Yes -Correct Side, Site, Position Yes Yes Yes -Correct Procedure Yes Yes Yes -Procedure Performed Yes Yes No -Type of Procedure Debridement Debridement -Clinical Debridement Subcutaneous Subcutaneous -Tissue Removed Subcutaneous Subcutaneous -Post Debridement (cm) - Length 0.7 0.4 0 -Post Debridement (cm) - Width 0.3 0.1 0 -Post Debridement (cm) - Depth 0.1 0.1 0 -Total Square (Post) (cm) 0.21 0.04 0 -Area of Debridement (cm) - Length 0.7 0.4 -Area of Debridement (cm) - Width 0.3 0.1 -Total Square (Area) (cm) 0.21 0.04 -Tunneling No No -Undermining/Tunneling No No -Circular Undermining No No -Wound/Ulcer Outcome Not Healed Not Healed Healed- Epithelialized -Ulcer Cleansing Rinsed/ Irrigated with Saline -Foul Odor after Cleansing No No -Bioengineered Tissue No No -Bleeding Controlled with Pressure Silver Nitrate -Offloading No No -Treatment Response Procedure Procedure Tolerated Well Tolerated Well -Debridement - Subq, 1st 20sq cm Yes Yes #1- R LATERAL GR TOE -Time 09:08 09:03 09:11 -Correct Patient Yes Yes Yes -Correct Side, Site, Position Yes Yes Yes -Correct Procedure Yes Yes Yes -Procedure Performed Yes Yes Yes -Type of Procedure Debridement Debridement Debridement -Clinical Debridement Subcutaneous Subcutaneous Subcutaneous -Tissue Removed Subcutaneous Subcutaneous -Post Debridement (cm) - Length 0.6 0.4 0.1 -Post Debridement (cm) - Width 0.4 0.5 0.4 -Post Debridement (cm) - Depth 0.1 0.1 0.1 -Total Square (Post) (cm) 0.24 0.20 0.04 -Area of Debridement (cm) - Length 0.6 0.4 0.1 -Area of Debridement (cm) - Width 0.4 0.5 0.4 -Total Square (Area) (cm) 0.24 0.20 0.04 -Tunneling No No No -Undermining/Tunneling No No -Circular Undermining No No No -Wound/Ulcer Outcome Not Healed Not Healed Not Healed -Ulcer Cleansing Rinsed/ Rinsed/ Rinsed/ Irrigated with Irrigated with Irrigated with Saline Saline Saline -Foul Odor after Cleansing No No No -Bioengineered Tissue No No No -Bleeding Controlled with Pressure Pressure Pressure -Offloading Yes Yes No -Type of Offloading Surgical Shoe Surgical Shoe -Treatment Response Procedure Procedure Procedure Tolerated Well Tolerated Well Tolerated Well -Debridement - Subq, 1st 20sq cm No No Yes Pain Scale: 0-10 Numeric Is Patient Pain Free? Yes Yes Yes - Nurse 3 - General Ulcer D/C NN Start: 07/20/20 08:40 Freq: Status: Active Protocol: Activity Type Activity Date Activity User E-Sign Co-Sign Detail Recorded Client Recorded Date Recorded By Document 07/20/20 09:19 SABA [id number] 07/20/20 09:20 Document 07/27/20 09:27 [id number] 07/27/20 09:27 Document 08/03/20 09:17 MW [id number] 08/03/20 09:18 MW 07/20/20 07/27/20 08/03/20 09:19 09:27 09:17 Wound Care Nurse 3 #2- R NELSON CLUSTER -Ulcer Cleansing Rinsed/ Rinsed/ Irrigated with Irrigated with Saline Saline -Foul Odor after Cleansing No No -Primary Dressing Applied C Hydrogel ($), C Hydrogel ($) NonAdherent Contact Layer -Primary Dressing Covered/Secured with Dry Gauze & Dry Gauze Roll Gauze, Secured with Tape #1- R LATERAL GR TOE -Ulcer Cleansing Rinsed/ Rinsed/ Rinsed/ Irrigated with Irrigated with Irrigated with Saline Saline Saline -Foul Odor after Cleansing No No No -Primary Dressing Applied C Hydrogel ($), C Hydrogel ($) NonAdherent NonAdherent Contact Layer, Contact Layer Other -Other Dressing hydrogel -Primary Dressing Covered/Secured with Dry Gauze & Dry Gauze Dry Gauze,Other Roll Gauze, Secured with Tape -Other Covering secured w coban Treatment Response Procedure Tolerated Well Pain Scale: 0-10 Numeric Is Patient Pain Free? Yes Yes Yes WC - Visit Discharge Discharge Condition Stable Stable Stable Ambulatory Status Ambulatory Ambulatory Ambulatory Transportation Private Auto Private Auto Private Auto Medication Reconcilliation completed & Yes Yes provided to patient/care provider Clinical Summary of Care Provided Yes Yes Wound debrided: Hallux Laterality: Right Wound Grade/Stage: Li 3 Type of Debridement: Excisional debridement Anesthesia Used: 4% Lidocaine Solution Depth: in the subcutaneous layer Percentage of wound debrided: 100 Instrument Used: 3mm curette Tissue Removed: includes fibrous, devitalized, biofilm, callus and slough tissue Severity: Fat Layer Exposed Amount of bleeding with debridement: Mild Bleeding Controlled with: Pressure Patient tolerated procedure: Patient tolerated procedure well Assessment/Plan Assessment/Plan (1) Ulcer of right lower extremity with fat layer exposed: CODE(S): L97.912 - Non-pressure chronic ulcer of unspecified part of right lower leg with fat layer exposed (2) 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 exposed: CODE(S): L97.512 - 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 exposed (3) PAD (peripheral artery disease): CODE(S): I73.9 - Peripheral vascular disease, unspecified (4) Osteomyelitis: CODE(S): M86.9 - Osteomyelitis, unspecified QUALIFIERS: Osteomyelitis type: other acute Osteomyelitis location: foot Laterality: right Qualified Code(s): M86.171 - Other acute osteomyelitis, right ankle and foot (5) Diabetic neuropathy associated with type 2 diabetes mellitus: CODE(S): E11.40 - Type 2 diabetes mellitus with diabetic neuropathy, unspecified QUALIFIERS: Diabetes mellitus complication detail: diabetic polyneuropathy Qualified Code(s): E11.42 - Type 2 diabetes mellitus with diabetic polyneuropathy (6) Psoriasis: CODE(S): L40.9 - Psoriasis, unspecified PLAN: Patient seen and examined. Patient noted to have improved wound to the right hallux and anterior nelson has healed. Constipation has resolved Ulceration was sharply debrided after verbal consent was given by patient without incident. Patient is to use hydrogel with Adaptic daily dressing changes. Patient relates that he has wound supplies. Patient had an arteriogram with bilateral iliofemoral angiogram and a balloon angioplasty to the right external iliac artery performed by Dr. Peacock on 07/06/2020. Operative report was received and reviewed showing iliofemoral angiogram with balloon angioplasty to right external iliac artery. Patient has follow-up with Dr. Peacock tomorrow. Patient presents today in surgical shoe for offloading. Patient relates that even after having offloading insert go down to the bottom of the shoe he still felt unstable and was afraid he was going to roll his ankle. States that he removed the offloading insert to the surgical shoe and feels much more stable. Patient educated on the importance of proper wound care, smoking cessation, offloading, proper diet with good nutrition, blood sugar control and their impact on wound healing. All questions answered. Patient is to follow-up in 1 week. This note was generated with [employer] dictation software. It may contain incorrect words, spelling, and punctuation that were not noted in checking the note before signing.
[2020-08-10 08:29] VITALS: BP 143/77; PULSE 89; RESP 16; TEMP 36.3; BMI 32.4
--- NOTE | 2020-08-10 08:56 | PN.PCM_ITS ---
History of Present Illness Date of Service: 08/10/20 Chief Complaint: Ulceration right hallux Osteomyelitis right hallux distal phalanx Peripheral vascular disease History of Wound: The patient is a 64 year old M who presents for worsening right foot cellulitis. Patient has significant medical history including diabetes with neuropathy and peripheral vascular disease and psoriasis. Patient was noted to have ulceration after a biopsy of a suspicious lesion to his right hallux failed to heal. Patient was noted to have worsening of ulceration site which sent him to be admitted to the hospital per further work-up after failing a course of oral doxycycline. Patient was admitted on 05/31/2020 to [facility]. Patient had cultures obtained which grew E. coli, strep anginosus, Enterococcus faecalis, prevotella disiens and prevotella bivia. Infectious disease was consulted and Dr. Peoples had patient discharged on po doxy and augmentin for 6 week course. Patient had an MRI obtained of his right foot which demonstrated cellulitis the medial first digit with osteomyelitis of the dorsal and medial aspect of the base of the first distal phalanx. Dr. Peacock, vascular surgery, was also consulted while in the hospital. Repeat blood flow studies were obtained incl uding L AAS and CTA. Patient is to follow with Dr. Peacock as an outpatient for angioplasty. Patient was discharged from the hospital with instructions to follow-up with the wound care center for continued wound care Patient had intervention with Dr Peacock 07/06/2020 with an iliofemoral angiogram and balloon angioplasty of the right external iliac artery. Progress of Wound: Nelson wound remains healed. Hallux wound is much improved Subjective Subjective Patient seen and examined resting comfortably. Patient denies any new pedal complaints. Patient denies any nausea, fever, chills, chest pain, shortness of breath, cough, streaking, purulence, vomiting. Objective Data Objective Data Vital Signs: Vital Signs Temp Pulse Resp BP 97.4 F L 89 16 143/77 H 08/10/20 08:29 08/10/20 08:29 08/10/20 08:29 08/10/20 08:29 Oxygen Delivery Method Room Air Weight: 117.934 kg Body Mass Index (BMI) 32.4 Physical Exam Narrative Const alert and no apparent distress General Appearance: cooperative and comfortable Lymph Lymphatic: no lymphedema noted Resp normal respiratory effort Effort and Inspection: able to speak in complete sentences Extremity no calf tenderness, negative magdalene and mirza sign no pedal edema General Extremity: no tenderness to palpation of joints or extremities; Negative for clubbing or cyanosis or ecchymosis or erythema Vasc Peripheral Pulses: Yes posterior tibial pulses present right 2+ and dorsalis pedis pulses present right 2+, normal capillary refill, no acute ischemic skin changes noted Skin General Skin Exam: dry skin and venous stasis, decreased hair growth noted; Negative for ecchymosis, eschar, pallor, rashes Wound Narrative: ulcer noted to right hallux. anterior nelson is healed. No malodor, purulence, probing to bone, streaking, fluctuation, crepitus. Skin is atrophic and hairless. More granular base. Less erythema/edema noted. To fascia. Minimal maceration. Psoriasis rash noted to bilateral lower extremities, improved. 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 Neuro Gait (Neuro): heel to toe Sensory Exam: extremities light-touch: Absent MSK Motor Exam: strength 5/5 throughout, ROM to foot and ankle joints within normal limits Psych Appearance: appropriate Attitude: calm Debridement Note Debridement Note Post-Debridement Measurements and Additional Note: Post-Debridement Measurements/Treatment - Nurse 1 - General Ulcer Assessment Start: 07/20/20 08:40 Freq: Status: Active Protocol: LOWEXT Activity Type Activity Date Activity User E-Sign Co-Sign Detail Recorded Client Recorded Date Recorded By Document 07/20/20 08:40 MW [id number] 07/20/20 08:43 MW Document 07/27/20 08:42 DL [id number] 07/27/20 08:49 DL Document 08/03/20 08:52 BMF [id number] 08/03/20 08:57 BMF Document 08/10/20 08:29 BMF [id number] 08/10/20 08:33 [facility] 07/20/20 07/27/20 08/03/20 08:40 08:42 08:52 - Today's Visit Information Type of service Follow-up Visit Follow-up Visit Follow-up Visit (Physician/EMERGENCY ROOM REGISTERED NURSE (Physician/EMERGENCY ROOM REGISTERED NURSE (Physician/EMERGENCY ROOM REGISTERED NURSE ) ) ) Arrival Mode Ambulatory Ambulatory Ambulatory Transfer Assistance None Transfer Board None Accompanied by self Patient Identification Verified (Name & Yes Yes ) Patient Requires Transmission-Based No No No Precautions Safety Precautions NA Finger Stick Blood Sugar(mg/dl) (if 118 119 indicated): Blood Sugar Stated by Stated by Patient Patient Height and Weight Body Mass Index (BMI) 32.4 32.4 32.4 BMI Classification Obese Obese Obese Vital Signs Temperature (97.8 F-99.1 F) 97.9 F 98.4 F Temperature Source Temporal Temporal Pulse Rate (60-100) 77 88 Pulse Location Monitor Monitor Respiratory Rate (12-18) 18 16 Respiratory rate source Observation Observation Oxygen Delivery Method Room Air Blood Pressure (90/60-120/80) 125/67 H 128/66 H Blood Pressure Mean (mm Hg) 86 86 Source Monitor Monitor Position Sitting Blood Pressure Location Left Arm History Since Last Visit- (Skip if this is Patient's initial visit) Have you changed medications since your No No No last visit? Any new allergies or adverse reactions No No No Had a fall/change in ADL's that may No No No increase risk of falls Signs or symptoms of abuse and/or No No No neglect since last visit Have you been in the hospital since your No No last visit? Has dressing in place as prescribed Yes Yes No Has compression in place as prescribed Yes No N/A Has offloadiing in place as prescribed N/A Yes Yes Experienced any changes in pain level or No No No management Left Footwear Regular Shoe Regular Shoe Right Footwear Regular Shoe Surgical Shoe Surgical Shoe with pressure with pressure relief insole relief insole Pain Scale: 0-10 Numeric Is Patient Pain Free? Yes Yes Yes 08/10/20 08:29 WC - Today's Visit Information Type of service Follow-up Visit (Physician/EMERGENCY ROOM REGISTERED NURSE ) Arrival Mode Ambulatory Transfer Assistance None Accompanied by Patient Identification Verified (Name & Yes ) Patient Requires Transmission-Based No Precautions Safety Precautions Finger Stick Blood Sugar(mg/dl) (if indicated): Blood Sugar Height and Weight Body Mass Index (BMI) 32.4 BMI Classification Obese Vital Signs Temperature (97.8 F-99.1 F) 97.4 F L Temperature Source Temporal Pulse Rate (60-100) 89 Pulse Location Monitor Respiratory Rate (12-18) 16 Respiratory rate source Observation Oxygen Delivery Method Room Air Blood Pressure (90/60-120/80) 143/77 H Blood Pressure Mean (mm Hg) 99 Source Monitor Position Sitting Blood Pressure Location Left Arm History Since Last Visit- (Skip if this is Patient's initial visit) Have you changed medications since your No last visit? Any new allergies or adverse reactions No Had a fall/change in ADL's that may No increase risk of falls Signs or symptoms of abuse and/or No neglect since last visit Have you been in the hospital since your No last visit? Has dressing in place as prescribed Has compression in place as prescribed N/A Has offloadiing in place as prescribed Yes Experienced any changes in pain level or No management Left Footwear Regular Shoe Right Footwear Surgical Shoe with pressure relief insole Pain Scale: 0-10 Numeric Is Patient Pain Free? Yes WC - Nurse 1 - General Ulcer Measurement Start: 07/20/20 08:40 Freq: Status: Active Protocol: Activity Type Activity Date Activity User E-Sign Co-Sign Detail Recorded Client Recorded Date Recorded By Document 07/20/20 08:40 MW [id number] 07/20/20 08:43 MW Document 07/27/20 08:42 DL [id number] 07/27/20 08:49 DL Document 08/03/20 08:52 BMF [id number] 08/03/20 08:57 BMF Document 08/10/20 08:29 BMF [id number] 08/10/20 08:33 BMF 07/20/20 07/27/20 08/03/20 08:40 08:42 08:52 Wound Center Nurse 1 #2- R NELSON CLUSTER -Combined with other wound No No -Current Size (cm) - Length 0.1 0.4 0.1 -Current Size (cm) - Width 0.1 0.2 0.1 -Current Size (cm) - Depth 0.1 0.1 0.1 -Total Square Cm 0.01 0.08 0.01 -Photo Taken No No -Epithelialization None Present Large 67-100% -Tunneling No -Undermining/Tunneling No -Circular Undermining No -Exudate Amt None Present None Present -Wound Margin Flat & Intact Thickened -Granulation Amt None Present (0 None Present (0 %) %) -Granulation Quality N/A -Slough/Fibrin Yes -Necrosis Amt Large (67-100%) Small (1-33%) -Necrotic Tissue Type Adherent Slough Eschar -Structure Exposed N/A N/A -Texture (Chantelle-wound Skin Appearance) Assessed, Rash Assessed, Scarring Scarring -Moisture (Chantelle-wound Skin Appearance) Assessed,Dry/ Dry/Scaly Assessed Scaly -Color (Chantelle-wound Skin Appearance) Assessed, No Abnormality Assessed Hemosiderin Staining -Temperature (Chantelle-wound Skin No Abnormality No Abnormality No Abnormality Appearance) (Pt Warm) (Pt Warm) (Pt Warm) -Ulcer Cleansing Rinsed/ Rinsed/ Rinsed/ Irrigated with Irrigated with Irrigated with Saline Saline Saline -Foul Odor after Cleansing No Yes, Due to No Product Use -Anesthetic Used 4% Lidocaine 4% Lidocaine Solution Solution #1- R LATERAL GR TOE -Combined with other wound No No -Current Size (cm) - Length 0.5 0.3 0.3 -Current Size (cm) - Width 0.6 0.4 0.3 -Current Size (cm) - Depth 0.1 0.1 0.1 -Total Square Cm 0.30 0.12 0.09 -Photo Taken No No No -Epithelialization None Present Medium 34-66% -Tunneling No No -Undermining/Tunneling No No -Circular Undermining No No -Exudate Amt None Present Small Small -Exudate Type Serosanguineous Serosanguineous Serous -Wound Margin Distinct, Thickened Flat & Intact Outline Attached -Granulation Amt Medium (34-66%) Small (1-33%) Large (67-100%) -Granulation Quality [place] Red -Slough/Fibrin Yes No -Necrosis Amt Small (1-33%) None Present (0 %) -Necrotic Tissue Type Adherent Slough Adherent Slough -Structure Exposed N/A -Texture (Chantelle-wound Skin Appearance) Assessed, Scarring Assessed, Scarring Scarring -Moisture (Chantelle-wound Skin Appearance) Assessed Maceration Assessed, Maceration -Color (Chantelle-wound Skin Appearance) Assessed Rubor Assessed,Palor -Temperature (Chantelle-wound Skin No Abnormality No Abnormality No Abnormality Appearance) (Pt Warm) (Pt Warm) (Pt Warm) -Tenderness on Palpation (Chantelle-wound Yes No No Skin Appearance) -Ulcer Cleansing Rinsed/ Rinsed/ Rinsed/ Irrigated with Irrigated with Irrigated with Saline Saline Saline -Foul Odor after Cleansing No No -Anesthetic Used 4% Lidocaine 4% Lidocaine 5% Lidocaine Solution Solution, Gel Cetacaine Lower Limb Edema Present No 08/10/20 08:29 Wound Center Nurse 1 #2- R NELSON CLUSTER -Combined with other wound -Current Size (cm) - Length -Current Size (cm) - Width -Current Size (cm) - Depth -Total Square Cm -Photo Taken -Epithelialization -Tunneling -Undermining/Tunneling -Circular Undermining -Exudate Amt -Wound Margin -Granulation Amt -Granulation Quality -Slough/Fibrin -Necrosis Amt -Necrotic Tissue Type -Structure Exposed -Texture (Chantelle-wound Skin Appearance) -Moisture (Chantelle-wound Skin Appearance) -Color (Chantelle-wound Skin Appearance) -Temperature (Chantelle-wound Skin Appearance) -Ulcer Cleansing -Foul Odor after Cleansing -Anesthetic Used #1- R LATERAL GR TOE -Combined with other wound No -Current Size (cm) - Length 0.1 -Current Size (cm) - Width 0.1 -Current Size (cm) - Depth 0.1 -Total Square Cm 0.01 -Photo Taken -Epithelialization Large 67-100% -Tunneling -Undermining/Tunneling -Circular Undermining -Exudate Amt -Exudate Type -Wound Margin -Granulation Amt -Granulation Quality -Slough/Fibrin -Necrosis Amt -Necrotic Tissue Type -Structure Exposed -Texture (Chantelle-wound Skin Appearance) Assessed, Scarring -Moisture (Chantelle-wound Skin Appearance) Assessed, Maceration -Color (Chantelle-wound Skin Appearance) Assessed,Palor -Temperature (Chantelle-wound Skin No Abnormality Appearance) (Pt Warm) -Tenderness on Palpation (Chantelle-wound No Skin Appearance) -Ulcer Cleansing Rinsed/ Irrigated with Saline -Foul Odor after Cleansing No -Anesthetic Used 5% Lidocaine Gel Lower Limb Edema Present WC - Nurse 2 - General Ulcer CM Notes Start: 07/20/20 08:40 Freq: Status: Active Protocol: Activity Type Activity Date Activity User E-Sign Co-Sign Detail Recorded Client Recorded Date Recorded By Document 07/20/20 09:07 [id number] 07/20/20 09:19 Document 07/27/20 09:02 [id number] 07/27/20 09:06 Document 08/03/20 09:10 MW [id number] 08/03/20 09:12 MW Document 08/10/20 08:54 [id number] 08/10/20 08:56 07/20/20 07/27/20 08/03/20 09:07 09:02 09:10 Wound Center Nurse 2 #2- R NELSON CLUSTER -Time : 09:03 09:11 -Correct Patient Yes Yes -Correct Side, Site, Position Yes Yes Yes -Correct Procedure Yes Yes Yes -Procedure Performed Yes Yes No -Type of Procedure Debridement Debridement -Clinical Debridement Subcutaneous Subcutaneous -Tissue Removed Subcutaneous Subcutaneous -Post Debridement (cm) - Length 0.7 0.4 0 -Post Debridement (cm) - Width 0.3 0.1 0 -Post Debridement (cm) - Depth 0.1 0.1 0 -Total Square (Post) (cm) 0.21 0.04 0 -Area of Debridement (cm) - Length 0.7 0.4 -Area of Debridement (cm) - Width 0.3 0.1 -Total Square (Area) (cm) 0.21 0.04 -Tunneling No No -Undermining/Tunneling No No -Circular Undermining No No -Wound/Ulcer Outcome Not Healed Not Healed Healed- Epithelialized -Ulcer Cleansing Rinsed/ Irrigated with Saline -Foul Odor after Cleansing No No -Bioengineered Tissue No No -Bleeding Controlled with Pressure Silver Nitrate -Offloading No No -Treatment Response Procedure Procedure Tolerated Well Tolerated Well -Debridement - Subq, 1st 20sq cm Yes Yes #1- R LATERAL GR TOE -Time : 09:03 09:11 -Correct Patient Yes Yes Yes -Correct Side, Site, Position Yes Yes Yes -Correct Procedure Yes Yes Yes -Procedure Performed Yes Yes Yes -Type of Procedure Debridement Debridement Debridement -Clinical Debridement Subcutaneous Subcutaneous Subcutaneous -Tissue Removed Subcutaneous Subcutaneous -Post Debridement (cm) - Length 0.6 0.4 0.1 -Post Debridement (cm) - Width 0.4 0.5 0.4 -Post Debridement (cm) - Depth 0.1 0.1 0.1 -Total Square (Post) (cm) 0.24 0.20 0.04 -Area of Debridement (cm) - Length 0.6 0.4 0.1 -Area of Debridement (cm) - Width 0.4 0.5 0.4 -Total Square (Area) (cm) 0.24 0.20 0.04 -Tunneling No No No -Undermining/Tunneling No No -Circular Undermining No No No -Wound/Ulcer Outcome Not Healed Not Healed Not Healed -Ulcer Cleansing Rinsed/ Rinsed/ Rinsed/ Irrigated with Irrigated with Irrigated with Saline Saline Saline -Foul Odor after Cleansing No No No -Bioengineered Tissue No No No -Bleeding Controlled with Pressure Pressure Pressure -Offloading Yes Yes No -Type of Offloading Surgical Shoe Surgical Shoe -Treatment Response Procedure Procedure Procedure Tolerated Well Tolerated Well Tolerated Well -Debridement - Subq, 1st 20sq cm No No Yes Pain Scale: 0-10 Numeric Is Patient Pain Free? Yes Yes Yes 08/10/20 08:54 Wound Center Nurse 2 #2- R NELSON CLUSTER -Time -Correct Patient -Correct Side, Site, Position -Correct Procedure -Procedure Performed -Type of Procedure -Clinical Debridement -Tissue Removed -Post Debridement (cm) - Length -Post Debridement (cm) - Width -Post Debridement (cm) - Depth -Total Square (Post) (cm) -Area of Debridement (cm) - Length -Area of Debridement (cm) - Width -Total Square (Area) (cm) -Tunneling -Undermining/Tunneling -Circular Undermining -Wound/Ulcer Outcome -Ulcer Cleansing -Foul Odor after Cleansing -Bioengineered Tissue -Bleeding Controlled with -Offloading -Treatment Response -Debridement - Subq, 1st 20sq cm #1- R LATERAL GR TOE -Time 08:54 -Correct Patient Yes -Correct Side, Site, Position Yes -Correct Procedure Yes -Procedure Performed Yes -Type of Procedure Debridement -Clinical Debridement Subcutaneous -Tissue Removed Subcutaneous -Post Debridement (cm) - Length 0.2 -Post Debridement (cm) - Width 0.1 -Post Debridement (cm) - Depth 0.1 -Total Square (Post) (cm) 0.02 -Area of Debridement (cm) - Length 0.2 -Area of Debridement (cm) - Width 0.1 -Total Square (Area) (cm) 0.02 -Tunneling No -Undermining/Tunneling No -Circular Undermining No -Wound/Ulcer Outcome Not Healed -Ulcer Cleansing Rinsed/ Irrigated with Saline -Foul Odor after Cleansing No -Bioengineered Tissue No -Bleeding Controlled with Pressure -Offloading Yes -Type of Offloading Surgical Shoe -Treatment Response Procedure Tolerated Well -Debridement - Subq, 1st 20sq cm Yes Pain Scale: 0-10 Numeric Is Patient Pain Free? WC - Nurse 3 - General Ulcer D/C NN Start: 07/20/20 08:40 Freq: Status: Active Protocol: Activity Type Activity Date Activity User E-Sign Co-Sign Detail Recorded Client Recorded Date Recorded By Document 07/20/20 09:19 [id number] 07/20/20 09:20 JF Document 07/27/20 09:27 [id number] 07/27/20 09:27 Document 08/03/20 09:17 MW [id number] 08/03/20 09:18 MW 07/20/20 07/27/20 08/03/20 09:19 09:27 09:17 Wound Care Nurse 3 #2- R NELSON CLUSTER -Ulcer Cleansing Rinsed/ Rinsed/ Irrigated with Irrigated with Saline Saline -Foul Odor after Cleansing No No -Primary Dressing Applied C Hydrogel ($), C Hydrogel ($) NonAdherent Contact Layer -Primary Dressing Covered/Secured with Dry Gauze & Dry Gauze Roll Gauze, Secured with Tape #1- R LATERAL GR TOE -Ulcer Cleansing Rinsed/ Rinsed/ Rinsed/ Irrigated with Irrigated with Irrigated with Saline Saline Saline -Foul Odor after Cleansing No No No -Primary Dressing Applied C Hydrogel ($), C Hydrogel ($) NonAdherent NonAdherent Contact Layer, Contact Layer Other -Other Dressing hydrogel -Primary Dressing Covered/Secured with Dry Gauze & Dry Gauze Dry Gauze,Other Roll Gauze, Secured with Tape -Other Covering secured w coban Treatment Response Procedure Tolerated Well Pain Scale: 0-10 Numeric Is Patient Pain Free? Yes Yes Yes WC - Visit Discharge Discharge Condition Stable Stable Stable Ambulatory Status Ambulatory Ambulatory Ambulatory Transportation Private Auto Private Auto Private Auto Medication Reconcilliation completed & Yes Yes provided to patient/care provider Clinical Summary of Care Provided Yes Yes Wound debrided: Medial hallux Laterality: Right Wound Grade/Stage: Li 3 Type of Debridement: Excisional debridement Anesthesia Used: 4% Lidocaine Solution Depth: in the subcutaneous layer Percentage of wound debrided: 100 Instrument Used: 3mm curette Tissue Removed: includes fibrous, devitalized, biofilm, callus and slough tissue Severity: Fat Layer Exposed Amount of bleeding with debridement: Mild Bleeding Controlled with: Pressure Patient tolerated procedure: Patient tolerated procedure well Assessment/Plan Assessment/Plan (1) 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 exposed: CODE(S): L97.512 - 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 exposed (2) PAD (peripheral artery disease): CODE(S): I73.9 - Peripheral vascular disease, unspecified (3) Osteomyelitis: CODE(S): M86.9 - Osteomyelitis, unspecified QUALIFIERS: Osteomyelitis type: other acute Osteomyelitis location: foot Laterality: right Qualified Code(s): M86.171 - Other acute osteomyelitis, right ankle and foot (4) Diabetic neuropathy associated with type 2 diabetes mellitus: CODE(S): E11.40 - Type 2 diabetes mellitus with diabetic neuropathy, unspecified QUALIFIERS: Diabetes mellitus complication detail: diabetic polyneuropathy Qualified Code(s): E11.42 - Type 2 diabetes mellitus with diabetic polyneuropathy (5) Psoriasis: CODE(S): L40.9 - Psoriasis, unspecified PLAN: Patient seen and examined. Patient noted to have improved wound to the right hallux and anterior nelson remains healed. Ulceration was sharply debrided after verbal consent was given by patient without incident. Patient is to use hydrogel with Adaptic daily dressing changes. Patient relates that he has wound supplies. Patient had an arteriogram with bilateral iliofemoral angiogram and a balloon angioplasty to the right external iliac artery performed by Dr. Peacock on 07/06/2020. Operative report was received and reviewed showing iliofemoral angiogram with balloon angioplasty to right external iliac artery. Patient has follow-up with Dr. Peacock last week that patient relates went well. Patient presents today in surgical shoe for offloading. Patient relates that even after having offloading insert go down to the bottom of the shoe he still felt unstable and was afraid he was going to roll his ankle. States that he removed the offloading insert to the surgical shoe and feels much more stable. Patient educated on the importance of proper wound care, smoking cessation, offloading, proper diet with good nutrition, blood sugar control and their impact on wound healing. All questions answered. Patient is to follow-up in 1 week. This note was generated with [employer] dictation software. It may contain incorrect words, spelling, and punctuation that were not noted in checking the note before signing.
[2020-08-17 08:40] VITALS: BP 141/71; PULSE 86; RESP 16; TEMP 36.6; BMI 32.4
--- NOTE | 2020-08-17 09:52 | PCM.WC.PN ---
History of Present Illness Date of Service: 08/17/20 Chief Complaint: Ulceration right hallux Osteomyelitis right hallux distal phalanx Peripheral vascular disease History of Wound: The patient is a 64 year old M who presents for worsening right foot cellulitis. Patient has significant medical history including diabetes with neuropathy and peripheral vascular disease and psoriasis. Patient was noted to have ulceration after a biopsy of a suspicious lesion to his right hallux failed to heal. Patient was noted to have worsening of ulceration site which sent him to be admitted to the hospital per further work-up after failing a course of oral doxycycline. Patient was admitted on 05/31/2020 to [facility]. Patient had cultures obtained which grew E. coli, strep anginosus, Enterococcus faecalis, prevotella disiens and prevotella bivia. Infectious disease was consulted and Dr. Peoples had patient discharged on po doxy and augmentin for 6 week course. Patient had an MRI obtained of his right foot which demonstrated cellulitis the medial first digit with osteomyelitis of the dorsal and medial aspect of the base of the first distal phalanx. Dr. Peacock, vascular surgery, was also consulted while in the hospital. Repeat blood flow studies were obtained including L AAS and CTA. Patient is to follow with Dr. Peacock as an outpatient for angioplasty. Patient was discharged from the hospital with instructions to follow-up with the wound care center for continued wound care Patient had intervention with Dr Peacock 07/06/2020 with an iliofemoral angiogram and balloon angioplasty of the right external iliac artery. Progress of Wound: Nelson wound remains healed. Hallux wound is stable Subjective Subjective Patient seen and examined resting comfortably. Patient denies any new pedal complaints. Patient denies any nausea, fever, chills, chest pain, shortness of breath, cough, streaking, purulence, vomiting. Objective Data Objective Data Vital Signs: Vital Signs Temp Pulse Resp BP 97.9 F 86 16 141/71 H 08/17/20 08:40 08/17/20 08:40 08/17/20 08:40 08/17/20 08:40 Oxygen Delivery Method Room Air Weight: 117.934 kg Body Mass Index (BMI) 32.4 Physical Exam Narrative Const alert and no apparent distress General Appearance: cooperative and comfortable Lymph Lymphatic: no lymphedema noted Resp normal respiratory effort Effort and Inspection: able to speak in complete sentences Extremity no calf tenderness, negative magdalene and mirza sign no pedal edema General Extremity: no tenderness to palpation of joints or extremities; Negative for clubbing or cyanosis or ecchymosis or erythema Vasc Peripheral Pulses: Yes posterior tibial pulses present right 2+ and dorsalis pedis pulses present right 2+, normal capillary refill, no acute ischemic skin changes noted Skin General Skin Exam: dry skin and venous stasis, decreased hair growth noted; Negative for ecchymosis, eschar, pallor, rashes Wound Narrative: ulcer noted to right hallux. No malodor, purulence, probing to bone, streaking, fluctuation, crepitus. Skin is atrophic and hairless. More granular base. Less erythema/edema noted. To fascia. Minimal maceration. Psoriasis rash noted to bilateral lower extremities, improved. 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 Neuro Gait (Neuro): heel to toe Sensory Exam: extremities light-touch: Absent MSK Motor Exam: strength 5/5 throughout, ROM to foot and ankle joints within normal limits Psych Appearance: appropriate Attitude: calm Debridement Note Debridement Note Post-Debridement Measurements and Additional Note: Post-Debridement Measurements/Treatment - Nurse 1 - General Ulcer Assessment Start: 07/20/20 08:40 Freq: Status: Active Protocol: MAHSA Activity Type Activity Date Activity User E-Sign Co-Sign Detail Recorded Client Recorded Date Recorded By Document 07/20/20 08:40 MW [id number] 07/20/20 08:43 MW Document 07/27/20 08:42 DL [id number] 07/27/20 08:49 DL Document 08/03/20 08:52 BMF [id number] 08/03/20 08:57 BMF Document 08/10/20 08:29 BMF [id number] 08/10/20 08:33 BMF Document 08/17/20 08:40 DL [id number] 08/17/20 08:42 DL 07/20/20 07/27/20 08/03/20 08:40 08:42 08:52 - Today's Visit Information Type of service Follow-up Visit Follow-up Visit Follow-up Visit (Physician/CONSULTING BUSINESS DEVELOPER (Physician/CONSULTING BUSINESS DEVELOPER (Physician/CONSULTING BUSINESS DEVELOPER ) ) ) Arrival Mode Ambulatory Ambulatory Ambulatory Transfer Assistance None Transfer Board None Accompanied by self Patient Identification Verified (Name & Yes Yes ) Patient Requires Transmission-Based No No No Precautions Safety Precautions NA Finger Stick Blood Sugar(mg/dl) (if 118 119 indicated): Blood Sugar Stated by Stated by Patient Patient Height and Weight Body Mass Index (BMI) 32.4 32.4 32.4 BMI Classification Obese Obese Obese Vital Signs Temperature (97.8 F-99.1 F) 97.9 F 98.4 F Temperature Source Temporal Temporal Pulse Rate (60-100) 77 88 Pulse Location Monitor Monitor Respiratory Rate (12-18) 18 16 Respiratory rate source Observation Observation Oxygen Delivery Method Room Air Blood Pressure (90/60-120/80) 125/67 H 128/66 H Blood Pressure Mean (mm Hg) 86 86 Source Monitor Monitor Position Sitting Blood Pressure Location Left Arm History Since Last Visit- (Skip if this is Patient's initial visit) Have you changed medications since your No No No last visit? Any new allergies or adverse reactions No No No Had a fall/change in ADL's that may No No No increase risk of falls Signs or symptoms of abuse and/or No No No neglect since last visit Have you been in the hospital since your No No last visit? Has dressing in place as prescribed Yes Yes No Has compression in place as prescribed Yes No N/A Has offloadiing in place as prescribed N/A Yes Yes Experienced any changes in pain level or No No No management Left Footwear Regular Shoe Regular Shoe Right Footwear Regular Shoe Surgical Shoe Surgical Shoe with pressure with pressure relief insole relief insole Pain Scale: 0-10 Numeric Is Patient Pain Free? Yes Yes Yes 08/10/20 08/17/20 08:29 08:40 WC - Today's Visit Information Type of service Follow-up Visit Follow-up Visit (Physician/CONSULTING BUSINESS DEVELOPER (Physician/CONSULTING BUSINESS DEVELOPER ) ) Arrival Mode Ambulatory Ambulatory Transfer Assistance None None Accompanied by Patient Identification Verified (Name & Yes Yes ) Patient Requires Transmission-Based No No Precautions Safety Precautions NA Finger Stick Blood Sugar(mg/dl) (if indicated): Blood Sugar Height and Weight Body Mass Index (BMI) 32.4 32.4 BMI Classification Obese Obese Vital Signs Temperature (97.8 F-99.1 F) 97.4 F L 97.9 F Temperature Source Temporal Temporal Pulse Rate (60-100) 89 86 Pulse Location Monitor Monitor Respiratory Rate (12-18) 16 16 Respiratory rate source Observation Observation Oxygen Delivery Method Room Air Blood Pressure (90/60-120/80) 143/77 H 141/71 H Blood Pressure Mean (mm Hg) 99 94 Source Monitor Monitor Position Sitting Blood Pressure Location Left Arm History Since Last Visit- (Skip if this is Patient's initial visit) Have you changed medications since your No No last visit? Any new allergies or adverse reactions No No Had a fall/change in ADL's that may No No increase risk of falls Signs or symptoms of abuse and/or No No neglect since last visit Have you been in the hospital since your No No last visit? Has dressing in place as prescribed Yes Has compression in place as prescribed N/A N/A Has offloadiing in place as prescribed Yes Yes Experienced any changes in pain level or No management Left Footwear Regular Shoe Right Footwear Surgical Shoe with pressure relief insole Pain Scale: 0-10 Numeric Is Patient Pain Free? Yes Yes WC - Nurse 1 - General Ulcer Measurement Start: 07/20/20 08:40 Freq: Status: Active Protocol: Activity Type Activity Date Activity User E-Sign Co-Sign Detail Recorded Client Recorded Date Recorded By Document 07/20/20 08:40 MW [id number] 07/20/20 08:43 MW Document 07/27/20 08:42 DL [id number] 07/27/20 08:49 DL Document 08/03/20 08:52 BMF [id number] 08/03/20 08:57 BMF Document 08/10/20 08:29 BMF [id number] 08/10/20 08:33 BMF Document 08/17/20 08:40 DL [id number] 08/17/20 08:42 DL 07/20/20 07/27/20 08/03/20 08:40 08:42 08:52 Wound Center Nurse 1 #2- R NELSON CLUSTER -Combined with other wound No No -Current Size (cm) - Length 0.1 0.4 0.1 -Current Size (cm) - Width 0.1 0.2 0.1 -Current Size (cm) - Depth 0.1 0.1 0.1 -Total Square Cm 0.01 0.08 0.01 -Photo Taken No No -Epithelialization None Present Large 67-100% -Tunneling No -Undermining/Tunneling No -Circular Undermining No -Exudate Amt None Present None Present -Wound Margin Flat & Intact Thickened -Granulation Amt None Present (0 None Present (0 %) %) -Granulation Quality N/A -Slough/Fibrin Yes -Necrosis Amt Large (67-100%) Small (1-33%) -Necrotic Tissue Type Adherent Slough Eschar -Structure Exposed N/A N/A -Texture (Chantelle-wound Skin Appearance) Assessed, Rash Assessed, Scarring Scarring -Moisture (Chantelle-wound Skin Appearance) Assessed,Dry/ Dry/Scaly Assessed Scaly -Color (Chantelle-wound Skin Appearance) Assessed, No Abnormality Assessed Hemosiderin Staining -Temperature (Chantelle-wound Skin No Abnormality No Abnormality No Abnormality Appearance) (Pt Warm) (Pt Warm) (Pt Warm) -Ulcer Cleansing Rinsed/ Rinsed/ Rinsed/ Irrigated with Irrigated with Irrigated with Saline Saline Saline -Foul Odor after Cleansing No Yes, Due to No Product Use -Anesthetic Used 4% Lidocaine 4% Lidocaine Solution Solution #1- R LATERAL GR TOE -Combined with other wound No No -Current Size (cm) - Length 0.5 0.3 0.3 -Current Size (cm) - Width 0.6 0.4 0.3 -Current Size (cm) - Depth 0.1 0.1 0.1 -Total Square Cm 0.30 0.12 0.09 -Photo Taken No No No -Epithelialization None Present Medium 34-66% -Tunneling No No -Undermining/Tunneling No No -Circular Undermining No No -Exudate Amt None Present Small Small -Exudate Type Serosanguineous Serosanguineous Serous -Wound Margin Distinct, Thickened Flat & Intact Outline Attached -Granulation Amt Medium (34-66%) Small (1-33%) Large (67-100%) -Granulation Quality Lacona Lacona Red -Slough/Fibrin Yes No -Necrosis Amt Small (1-33%) None Present (0 %) -Necrotic Tissue Type Adherent Slough Adherent Slough -Structure Exposed N/A -Texture (Chantelle-wound Skin Appearance) Assessed, Scarring Assessed, Scarring Scarring -Moisture (Chantelle-wound Skin Appearance) Assessed Maceration Assessed, Maceration -Color (Chantelle-wound Skin Appearance) Assessed Rubor Assessed,Palor -Temperature (Chantelle-wound Skin No Abnormality No Abnormality No Abnormality Appearance) (Pt Warm) (Pt Warm) (Pt Warm) -Tenderness on Palpation (Chantelle-wound Yes No No Skin Appearance) -Ulcer Cleansing Rinsed/ Rinsed/ Rinsed/ Irrigated with Irrigated with Irrigated with Saline Saline Saline -Foul Odor after Cleansing No No -Anesthetic Used 4% Lidocaine 4% Lidocaine 5% Lidocaine Solution Solution, Gel Cetacaine Lower Limb Edema Present No 08/10/20 08/17/20 08:29 08:40 Wound Center Nurse 1 #2- R NELSON CLUSTER -Combined with other wound -Current Size (cm) - Length -Current Size (cm) - Width -Current Size (cm) - Depth -Total Square Cm -Photo Taken -Epithelialization -Tunneling -Undermining/Tunneling -Circular Undermining -Exudate Amt -Wound Margin -Granulation Amt -Granulation Quality -Slough/Fibrin -Necrosis Amt -Necrotic Tissue Type -Structure Exposed -Texture (Chantelle-wound Skin Appearance) -Moisture (Chantelle-wound Skin Appearance) -Color (Chantelle-wound Skin Appearance) -Temperature (Chantelle-wound Skin Appearance) -Ulcer Cleansing -Foul Odor after Cleansing -Anesthetic Used #1- R LATERAL GR TOE -Combined with other wound No -Current Size (cm) - Length 0.1 0.2 -Current Size (cm) - Width 0.1 0.2 -Current Size (cm) - Depth 0.1 0.2 -Total Square Cm 0.01 0.04 -Photo Taken No -Epithelialization Large 67-100% -Tunneling -Undermining/Tunneling -Circular Undermining -Exudate Amt Small -Exudate Type Serosanguineous -Wound Margin Distinct, Outline Attached -Granulation Amt Small (1-33%) -Granulation Quality Lacona -Slough/Fibrin -Necrosis Amt Small (1-33%) -Necrotic Tissue Type Eschar -Structure Exposed N/A -Texture (Chantelle-wound Skin Appearance) Assessed, Scarring -Moisture (Chantelle-wound Skin Appearance) Assessed, Maceration Maceration -Color (Chantelle-wound Skin Appearance) Assessed,Palor No Abnormality -Temperature (Chantelle-wound Skin No Abnormality No Abnormality Appearance) (Pt Warm) (Pt Warm) -Tenderness on Palpation (Chantelle-wound No No Skin Appearance) -Ulcer Cleansing Rinsed/ Wound Cleanser Irrigated with Saline -Foul Odor after Cleansing No No -Anesthetic Used 5% Lidocaine 5% Lidocaine Gel Gel Lower Limb Edema Present WC - Nurse 2 - General Ulcer CM Notes Start: 07/20/20 08:40 Freq: Status: Active Protocol: Activity Type Activity Date Activity User E-Sign Co-Sign Detail Recorded Client Recorded Date Recorded By Document 07/20/20 09:07 JF [id number] 07/20/20 09:19 JF Document 07/27/20 09:02 JF [id number] 07/27/20 09:06 JF Document 08/03/20 09:10 MW [id number] 08/03/20 09:12 MW Document 08/10/20 08:54 JF [id number] 08/10/20 08:56 JF Document 08/17/20 08:46 JF [id number] 08/17/20 08:48 JF 07/20/20 07/27/20 08/03/20 09:07 09:02 09:10 Wound Center Nurse 2 #2- R NELSON CLUSTER -Time 09:08 09:03 09:11 -Correct Patient Yes Yes -Correct Side, Site, Position Yes Yes Yes -Correct Procedure Yes Yes Yes -Procedure Performed Yes Yes No -Type of Procedure Debridement Debridement -Clinical Debridement Subcutaneous Subcutaneous -Tissue Removed Subcutaneous Subcutaneous -Post Debridement (cm) - Length 0.7 0.4 0 -Post Debridement (cm) - Width 0.3 0.1 0 -Post Debridement (cm) - Depth 0.1 0.1 0 -Total Square (Post) (cm) 0.21 0.04 0 -Area of Debridement (cm) - Length 0.7 0.4 -Area of Debridement (cm) - Width 0.3 0.1 -Total Square (Area) (cm) 0.21 0.04 -Tunneling No No -Undermining/Tunneling No No -Circular Undermining No No -Wound/Ulcer Outcome Not Healed Not Healed Healed- Epithelialized -Ulcer Cleansing Rinsed/ Irrigated with Saline -Foul Odor after Cleansing No No -Bioengineered Tissue No No -Bleeding Controlled with Pressure Silver Nitrate -Offloading No No -Treatment Response Procedure Procedure Tolerated Well Tolerated Well -Debridement - Subq, 1st 20sq cm Yes Yes #1- R LATERAL GR TOE -Time 09:08 09:03 09:11 -Correct Patient Yes Yes Yes -Correct Side, Site, Position Yes Yes Yes -Correct Procedure Yes Yes Yes -Procedure Performed Yes Yes Yes -Type of Procedure Debridement Debridement Debridement -Clinical Debridement Subcutaneous Subcutaneous Subcutaneous -Tissue Removed Subcutaneous Subcutaneous -Post Debridement (cm) - Length 0.6 0.4 0.1 -Post Debridement (cm) - Width 0.4 0.5 0.4 -Post Debridement (cm) - Depth 0.1 0.1 0.1 -Total Square (Post) (cm) 0.24 0.20 0.04 -Area of Debridement (cm) - Length 0.6 0.4 0.1 -Area of Debridement (cm) - Width 0.4 0.5 0.4 -Total Square (Area) (cm) 0.24 0.20 0.04 -Tunneling No No No -Undermining/Tunneling No No -Circular Undermining No No No -Wound/Ulcer Outcome Not Healed Not Healed Not Healed -Ulcer Cleansing Rinsed/ Rinsed/ Rinsed/ Irrigated with Irrigated with Irrigated with Saline Saline Saline -Foul Odor after Cleansing No No No -Bioengineered Tissue No No No -Bleeding Controlled with Pressure Pressure Pressure -Offloading Yes Yes No -Type of Offloading Surgical Shoe Surgical Shoe -Treatment Response Procedure Procedure Procedure Tolerated Well Tolerated Well Tolerated Well -Debridement - Subq, 1st 20sq cm No No Yes Pain Scale: 0-10 Numeric Is Patient Pain Free? Yes Yes Yes 08/10/20 08/17/20 08:54 08:46 Wound Center Nurse 2 #2- R NELSON CLUSTER -Time -Correct Patient -Correct Side, Site, Position -Correct Procedure -Procedure Performed -Type of Procedure -Clinical Debridement -Tissue Removed -Post Debridement (cm) - Length -Post Debridement (cm) - Width -Post Debridement (cm) - Depth -Total Square (Post) (cm) -Area of Debridement (cm) - Length -Area of Debridement (cm) - Width -Total Square (Area) (cm) -Tunneling -Undermining/Tunneling -Circular Undermining -Wound/Ulcer Outcome -Ulcer Cleansing -Foul Odor after Cleansing -Bioengineered Tissue -Bleeding Controlled with -Offloading -Treatment Response -Debridement - Subq, 1st 20sq cm #1- R LATERAL GR TOE -Time 08:54 08:46 -Correct Patient Yes Yes -Correct Side, Site, Position Yes Yes -Correct Procedure Yes Yes -Procedure Performed Yes Yes -Type of Procedure Debridement Debridement -Clinical Debridement Subcutaneous Subcutaneous -Tissue Removed Subcutaneous Subcutaneous -Post Debridement (cm) - Length 0.2 0.4 -Post Debridement (cm) - Width 0.1 0.1 -Post Debridement (cm) - Depth 0.1 0.1 -Total Square (Post) (cm) 0.02 0.04 -Area of Debridement (cm) - Length 0.2 0.4 -Area of Debridement (cm) - Width 0.1 0.1 -Total Square (Area) (cm) 0.02 0.04 -Tunneling No No -Undermining/Tunneling No No -Circular Undermining No No -Wound/Ulcer Outcome Not Healed Not Healed -Ulcer Cleansing Rinsed/ Rinsed/ Irrigated with Irrigated with Saline Saline -Foul Odor after Cleansing No No -Bioengineered Tissue No No -Bleeding Controlled with Pressure Pressure -Offloading Yes Yes -Type of Offloading Surgical Shoe Surgical Shoe -Treatment Response Procedure Procedure Tolerated Well Tolerated Well -Debridement - Subq, 1st 20sq cm Yes Yes Pain Scale: 0-10 Numeric Is Patient Pain Free? Yes - Nurse 3 - General Ulcer D/C NN Start: 07/20/20 08:40 Freq: Status: Active Protocol: Activity Type Activity Date Activity User E-Sign Co-Sign Detail Recorded Client Recorded Date Recorded By Document 07/20/20 09:19 [id number] 07/20/20 09:20 Document 07/27/20 09:27 [id number] 07/27/20 09:27 Document 08/03/20 09:17 MW [id number] 08/03/20 09:18 MW Document 08/10/20 09:00 [id number] 08/10/20 09:00 Document 08/17/20 08:54 [facility] Desktop 08/17/20 08:55 [facility] 07/20/20 07/27/20 08/03/20 09:19 09:27 09:17 Wound Care Nurse 3 #2- R NELSON CLUSTER -Ulcer Cleansing Rinsed/ Rinsed/ Irrigated with Irrigated with Saline Saline -Foul Odor after Cleansing No No -Primary Dressing Applied C Hydrogel ($), C Hydrogel ($) NonAdherent Contact Layer -Primary Dressing Covered/Secured with Dry Gauze & Dry Gauze Roll Gauze, Secured with Tape #1- R LATERAL GR TOE -Ulcer Cleansing Rinsed/ Rinsed/ Rinsed/ Irrigated with Irrigated with Irrigated with Saline Saline Saline -Foul Odor after Cleansing No No No -Primary Dressing Applied C Hydrogel ($), C Hydrogel ($) NonAdherent NonAdherent Contact Layer, Contact Layer Other -Other Dressing hydrogel -Primary Dressing Covered/Secured with Dry Gauze & Dry Gauze Dry Gauze,Other Roll Gauze, Secured with Tape -Other Covering secured w coban Treatment Response Procedure Tolerated Well Pain Scale: 0-10 Numeric Is Patient Pain Free? Yes Yes Yes WC - Visit Discharge Discharge Condition Stable Stable Stable Ambulatory Status Ambulatory Ambulatory Ambulatory Transportation [facility] [employer] [facility] [employer] Medication Reconcilliation completed & Yes Yes provided to patient/care provider Clinical Summary of Care Provided Yes Yes 08/10/20 08/17/20 09:00 08:54 Wound Care Nurse 3 #2- R NELSON CLUSTER -Ulcer Cleansing -Foul Odor after Cleansing -Primary Dressing Applied -Primary Dressing Covered/Secured with #1- R LATERAL GR TOE -Ulcer Cleansing Rinsed/ Rinsed/ Irrigated with Irrigated with Saline Saline -Foul Odor after Cleansing No -Primary Dressing Applied C Hydrogel ($), NonAdherent NonAdherent Contact Layer, Contact Layer Other -Other Dressing hydrogel -Primary Dressing Covered/Secured with Dry Gauze, Dry Gauze, Secured with Secured with Tape Tape -Other Covering Treatment Response Procedure Tolerated Well Pain Scale: 0-10 Numeric Is Patient Pain Free? Yes WC - Visit Discharge Discharge Condition Stable Stable Ambulatory Status Ambulatory Ambulatory Transportation [facility] [employer] Medication Reconcilliation completed & Yes provided to patient/care provider Clinical Summary of Care Provided Yes Wound debrided: Hallux Laterality: Right Wound Grade/Stage: Li 3 Type of Debridement: Excisional debridement Anesthesia Used: 4% Lidocaine Solution Depth: in the subcutaneous layer Percentage of wound debrided: 100 Instrument Used: 3mm curette Tissue Removed: includes fibrous, devitalized, biofilm, callus and slough tissue Severity: Fat Layer Exposed Amount of bleeding with debridement: Mild Bleeding Controlled with: Pressure Patient tolerated procedure: Patient tolerated procedure well Assessment/Plan Assessment/Plan (1) 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 exposed: CODE(S): L97.512 - 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 exposed (2) PAD (peripheral artery disease): CODE(S): I73.9 - Peripheral vascular disease, unspecified (3) Osteomyelitis: CODE(S): M86.9 - Osteomyelitis, unspecified QUALIFIERS: Osteomyelitis type: other acute Osteomyelitis location: foot Laterality: right Qualified Code(s): M86.171 - Other acute osteomyelitis, right ankle and foot (4) Diabetic neuropathy associated with type 2 diabetes mellitus: CODE(S): E11.40 - Type 2 diabetes mellitus with diabetic neuropathy, unspecified QUALIFIERS: Diabetes mellitus complication detail: diabetic polyneuropathy Qualified Code(s): E11.42 - Type 2 diabetes mellitus with diabetic polyneuropathy (5) Psoriasis: CODE(S): L40.9 - Psoriasis, unspecified PLAN: Patient seen and examined. Patient noted to have stable wound to the right hallux and anterior nelson remains healed. Ulceration was sharply debrided after verbal consent was given by patient without incident. Patient is to use hydrogel with Adaptic daily dressing changes. Patient relates that he has wound supplies. Patient had an arteriogram with bilateral iliofemoral angiogram and a balloon angioplasty to the right external iliac artery performed by Dr. Peacock on 07/06/2020. Operative report was received and reviewed showing iliofemoral angiogram with balloon angioplasty to right external iliac artery. Patient has follow-up with Dr. Peacock last week that patient relates went well. Patient presents today in surgical shoe for offloading. Patient relates that even after having offloading insert go down to the bottom of the shoe he still felt unstable and was afraid he was going to roll his ankle. States that he removed the offloading insert to the surgical shoe and feels much more stable. Patient educated on the importance of proper wound care, smoking cessation, offloading, proper diet with good nutrition, blood sugar control and their impact on wound healing. All questions answered. Patient is to follow-up in 2 weeks. This note was generated with [employer] dictation software. It may contain incorrect words, spelling, and punctuation that were not noted in checking the note before signing.
== END 2020-08-18 23:59 ==
LOC: WC 08:30
PROVIDERS: PCP Family Medicine; Visit Provider Podiatrist Foot & Ankle Surgery
DX: E11.621 Type 2 diabetes mellitus with foot ulcer (principal); L97.512 Non-pressure chronic ulcer of other part of right foot with fat layer exposed; I73.9 Peripheral vascular disease, unspecified; M86.171 Other acute osteomyelitis, right ankle and foot; E11.42 Type 2 diabetes mellitus with diabetic polyneuropathy; L40.9 Psoriasis, unspecified; E11.51 Type 2 diabetes mellitus with diabetic peripheral angiopathy without gangrene; Z79.01 Long term (current) use of anticoagulants; K59.00 Constipation, unspecified; E11.69 Type 2 diabetes mellitus with other specified complication
CPT/HCPCS: 11042

== ENCOUNTER 2020-08-31 08:30 | Outpatient (RCR) | payer MEDICARE, SELFPAY ==
[2020-08-19 00:26] VITALS: BP 141/71; PULSE 86; RESP 16; TEMP 36.6
[2020-08-31 08:22] VITALS: BP 107/67; BMI 32.4
--- NOTE | 2020-08-31 08:52 | PN.PCM_ITS ---
History of Present Illness Date of Service: 08/31/20 Chief Complaint: Ulceration right hallux Osteomyelitis right hallux distal phalanx Peripheral vascular disease History of Wound: The patient is a 64 year old M who presents for worsening right foot cellulitis. Patient has significant medical history including diabetes with neuropathy and peripheral vascular disease and psoriasis. Patient was noted to have ulceration after a biopsy of a suspicious lesion to his right hallux failed to heal. Patient was noted to have worsening of ulceration site which sent him to be admitted to the hospital per further work-up after failing a course of oral doxycycline. Patient was admitted on 05/31/2020 to [facility]. Patient had cultures obtained which grew E. coli, strep anginosus, Enterococcus faecalis, prevotella disiens and prevotella bivia. Infectious disease was consulted and Dr. Peoples had patient discharged on po doxy and augmentin for 6 week course. Patient had an MRI obtained of his right foot which demonstrated cellulitis the medial first digit with osteomyelitis of the dorsal and medial aspect of the base of the first distal phalanx. Dr. Peacock, vascular surgery, was also consulted while in the hospital. Repeat blood flow studies were obtained incl uding L AAS and CTA. Patient is to follow with Dr. Peacock as an outpatient for angioplasty. Patient was discharged from the hospital with instructions to follow-up with the wound care center for continued wound care Patient had intervention with Dr Peacock 07/06/2020 with an iliofemoral angiogram and balloon angioplasty of the right external iliac artery. Progress of Wound: Much improved, denies drainage Subjective Subjective Patient seen and examined resting comfortably. Patient denies any new pedal complaints. Patient denies any nausea, fever, chills, chest pain, shortness of breath, cough, streaking, purulence, vomiting. Objective Data Objective Data Vital Signs: Vital Signs Temp Pulse Resp BP 97.9 F 86 16 107/67 08/19/20 00:26 08/19/20 00:26 08/19/20 00:26 08/31/20 08:22 Weight: 117.934 kg Body Mass Index (BMI) 32.4 Physical Exam Narrative Const alert and no apparent distress General Appearance: cooperative and comfortable Lymph Lymphatic: no lymphedema noted Resp normal respiratory effort Effort and Inspection: able to speak in complete sentences Extremity no calf tenderness, negative magdalene and mirza sign no pedal edema General Extremity: no tenderness to palpation of joints or extremities; Negative for clubbing or cyanosis or ecchymosis or erythema Vasc Peripheral Pulses: Yes posterior tibial pulses present right 2+ and dorsalis pedis pulses present right 2+, normal capillary refill, no acute ischemic skin changes noted Skin General Skin Exam: dry skin and venous stasis, decreased hair growth noted; Negative for ecchymosis, eschar, pallor, rashes Wound Narrative: ulcer noted to right hallux has since healed with mild maceration noted around the area site.. Psoriasis rash noted to bilateral lower extremities, improved. 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 Neuro Gait (Neuro): heel to toe Sensory Exam: extremities light-touch: Absent MSK Motor Exam: strength 5/5 throughout, ROM to foot and ankle joints within normal limits Psych Appearance: appropriate Attitude: calm Debridement Note Debridement Note Post-Debridement Measurements and Additional Note: Post-Debridement Measurements/Treatment - Nurse 1 - General Ulcer Assessment Start: 08/31/20 08:22 Freq: Status: Active Protocol: [email or web address] Activity Type Activity Date Activity User E-Sign Co-Sign Detail Recorded Client Recorded Date Recorded By Document 08/31/20 08:22 [id number] 08/31/20 08:24 DL 08/31/20 08:22 - Today's Visit Information Type of service Follow-up Visit (Physician/[facility] ) Transfer Assistance None Patient Identification Verified (Name & Yes ) Patient Requires Transmission-Based No Precautions Finger Stick Blood Sugar(mg/dl) (if 146 indicated): Blood Sugar Stated by Patient Height and Weight Body Mass Index (BMI) 32.4 BMI Classification Obese Vital Signs Blood Pressure (90/60-120/80) 107/67 Blood Pressure Mean (mm Hg) 80 Source Monitor History Since Last Visit- (Skip if this is Patient's initial visit) Have you changed medications since your No last visit? Any new allergies or adverse reactions No Had a fall/change in ADL's that may No increase risk of falls Signs or symptoms of abuse and/or No neglect since last visit Have you been in the hospital since your No last visit? Has dressing in place as prescribed Yes Has compression in place as prescribed N/A Has offloadiing in place as prescribed Yes Experienced any changes in pain level or No management Right Footwear Surgical Shoe with pressure relief insole Pain Scale: 0-10 Numeric Is Patient Pain Free? Yes WC - Nurse 1 - General Ulcer Measurement Start: 08/31/20 08:22 Freq: Status: Active Protocol: Activity Type Activity Date Activity User E-Sign Co-Sign Detail Recorded Client Recorded Date Recorded By Document 08/31/20 08:22 DL [id number] 08/31/20 08:24 DL 08/31/20 08:22 Wound Center Nurse 1 #1- R LATERAL GR TOE -Current Size (cm) - Length 0.1 -Current Size (cm) - Width 0.1 -Current Size (cm) - Depth 0.1 -Total Square Cm 0.01 -Photo Taken No -Exudate Amt None Present -Wound Margin Flat & Intact -Granulation Amt Large (67-100%) -Granulation Quality [place] -Necrosis Amt None Present (0 %) -Structure Exposed N/A -Texture (Chantelle-wound Skin Appearance) Scarring -Moisture (Chantelle-wound Skin Appearance) Maceration -Color (Chantelle-wound Skin Appearance) Assessed -Temperature (Chantelle-wound Skin No Abnormality Appearance) (Pt Warm) -Tenderness on Palpation (Chantelle-wound No Skin Appearance) -Ulcer Cleansing Wound Cleanser -Foul Odor after Cleansing No -Anesthetic Used 4% Lidocaine Solution WC - Nurse 2 - General Ulcer CM Notes Start: 08/31/20 08:22 Freq: Status: Active Protocol: Activity Type Activity Date Activity User E-Sign Co-Sign Detail Recorded Client Recorded Date Recorded By Document 08/31/20 08:41 MW [id number] 08/31/20 08:42 MW 08/31/20 08:41 Wound Center Nurse 2 -Time 08:41 -Correct Patient Yes -Correct Side, Site, Position Yes -Correct Procedure Yes -Procedure Performed No -Post Debridement (cm) - Length 0 -Post Debridement (cm) - Width 0 -Post Debridement (cm) - Depth 0 -Total Square (Post) (cm) 0 -Wound/Ulcer Outcome Healed- Epithelialized Pain Scale: 0-10 Numeric Is Patient Pain Free? Yes LINWOOD - Nurse 3 - General Ulcer D/C NN Start: 08/31/20 08:22 Freq: Status: Active Protocol: Activity Type Activity Date Activity User E-Sign Co-Sign Detail Recorded Client Recorded Date Recorded By Document 08/31/20 08:42 MW [id number] 08/31/20 08:43 MW 08/31/20 08:42 Is Patient Pain Free? Yes Teaching: Wound Center Discharge Instructions -Person Taught Patient -Teaching Method Discussion -Response to teaching Verbalize understanding Dressing Your Wound -Person Taught Patient -Teaching Method Discussion, Demonstration -Response to teaching Verbalize understanding WC - Visit Discharge Discharge Condition Stable Ambulatory Status Ambulatory Transportation Private Auto Accompanied by self Medication Reconcilliation completed & No provided to patient/care provider Clinical Summary of Care Provided Yes Notes: discharged from clinic Assessment/Plan Assessment/Plan (1) Ulcer of right lower extremity with fat layer exposed: CODE(S): L97.912 - Non-pressure chronic ulcer of unspecified part of right lower leg with fat layer exposed (2) PAD (peripheral artery disease): CODE(S): I73.9 - Peripheral vascular disease, unspecified (3) Osteomyelitis: CODE(S): M86.9 - Osteomyelitis, unspecified QUALIFIERS: Osteomyelitis type: other acute Osteomyelitis lo cation: foot Laterality: right Qualified Code(s): M86.171 - Other acute osteomyelitis, right ankle and foot PLAN: Patient seen and examined. Ulceration site is noted to have healed. Reviewed with the patient concerning signs and symptoms to watch out for in the future. Reviewed proper foot care and shoe gear with the patient. Educated patient on proper foot care, and the importance of daily foot checks. All questions were answered. Patient to follow up immediately with any problems, questions and/or concerns. Discussed keeping bandage for another week or so as the skin softens up. Discussed any concerning signs and symptoms and contact if seen. Some Betadine placed today around old ulceration site due to the mild maceration is most likely secondary to the hydrogel that he has been placing on the area. Discussed stopping the hydrogel at this time. All questions were answered. Follow-up as needed
== END 2020-08-31 08:54 | disposition home or self-care (01) ==
LOC: WC 08:30
PROVIDERS: PCP Family Medicine; Visit Provider Podiatrist Foot & Ankle Surgery
DX: E11.621 Type 2 diabetes mellitus with foot ulcer (principal); L97.512 Non-pressure chronic ulcer of other part of right foot with fat layer exposed; E11.42 Type 2 diabetes mellitus with diabetic polyneuropathy; E11.51 Type 2 diabetes mellitus with diabetic peripheral angiopathy without gangrene; I87.8 Other specified disorders of veins
CPT/HCPCS: 99213; G0463

== ENCOUNTER → 2020-09-14 12:13 | Outpatient (CLI) | payer MEDICARE, SELFPAY ==
[2020-08-31 08:22] VITALS: BMI 32.4
[2020-09-14 13:03] LABS: Erythrocyte Sedimentation Rate 16 mm/hr (0-20)
[2020-09-14 13:05] LABS: Absolute Lymphocyte Count 2.28 X10^3/uL (0.83-4.51); Absolute Neutrophil Count 4.6 X10^3/uL (2.0-7.7); Basophil# 0.04 X10^3/uL; Basophil% 0.5 % (0-1); Eosinophil# 0.15 X10^3/uL; Eosinophils% 1.9 % (0-5); Hematocrit 42.3 % (40-54); Hemoglobin 14.1 g/dL (13.0-16.5); Lymphocyte # 2.28 X10^3/ul (0.83-4.51); Lymphocyte % 29.2 % (19-41); Mean Corp Hgb Conc 33.3 g/dL (32-36); Mean Corpuscular Hgb 29.1 pg (27.0-32.0); Mean Corpuscular Volume 87.2 fL (80-94); Mean Platelet Vol. 10.7 fl (6.2-12.0); Monocyte# 0.66 X10^3/uL; Monocyte% 8.5 % (0-10); NRBC Flagged by Analyzer 0 % (0-5); Neutrophil # 4.63 X10^3/uL (2.7-7.7); Neutrophil % 59.3 % (47-70); Platelet Count 173 K/mm3 (150-450); RBC Distribution Width CV 14.1 % (11.6-14.6); Red Blood Count 4.85 M/mm3 (4.6-6.2); White Blood Count 7.8 K/mm3 (4.4-11.0)
[2020-09-14 13:28] LABS: Microalbumin,Random Urine 15.5 mg/L (NO RANGE EST.); Microalbumin:Creatinine Ratio 10.5 mg/g CRE (<30 mg/g CRE)
[2020-09-14 13:37] LABS: ALB/GLOB Ratio 0.9 RATIO (0.9-2.4); AST(SGOT) 32 U/L (15-37); Alanine Aminotransfer ALT/SGPT 37 U/L (16-61); Albumin, Serum 3.6 g/dL (3.2-5.0); Alkaline Phosphatase 67 U/L (45-117); Anion Gap 8 (5-15); BUN 22 mg/dL (7-18); BUN/Creat Ratio 16.5 RATIO (10-20); CRP 4.66 mg/L (0.0-3.0); Chloride 101 mmol/L (98-107); Cholesterol 110 mg/dL (200); Creatinine, Serum 1.33 mg/dL (0.70-1.30); EST Glomerular Filtration Rate 57 mL/min (>60); Est Glom Filt Rate - Afr Amer 69 mL/min (>60); Globulin 3.8 g/dL (2.2-4.2); Glucose 323 mg/dL (74-106); High Density Lipoprotein 36 mg/dL; Potassium 4.5 mmol/L (3.5-5.1); Protein, Total 7.4 g/dL (6.4-8.2); Sodium Level 134 mmol/L (136-145); Triglycerides 310 mg/dL; Very Low Density Lipoprotein 62 mg/dL (5-40)
[2020-09-14 13:39] LABS: Hemoglobin A1c 8.5 % (3.8-5.6)
== END ==
LOC: LAB 12:15
PROVIDERS: PCP Family Medicine; Referring Provider Family Medicine; Visit Provider Family Medicine
DX: E11.49 Type 2 diabetes mellitus with other diabetic neurological complication (principal); M86.9 Osteomyelitis, unspecified; J44.9 Chronic obstructive pulmonary disease, unspecified
CPT/HCPCS: 36415; 80053; 80061; 82043; 82570; 83036; 85025; 85652; 86140

== ENCOUNTER → 2021-01-17 16:45 | Outpatient (CLI) | payer MEDICARE, SELFPAY ==
[2021-01-17 18:01] LABS: Absolute Lymphocyte Count 1.39 X10^3/uL (0.83-4.51); Basophil# 0.01 X10^3/uL; Basophil% 0.2 % (0-1); Eosinophil# 0.02 X10^3/uL; Eosinophils% 0.4 % (0-5); Hematocrit 44.1 % (40-54); Hemoglobin 14.9 g/dL (13.0-16.5); Lymphocyte # 1.39 X10^3/ul (0.83-4.51); Lymphocyte % 27.4 % (19-41); Mean Corp Hgb Conc 33.8 g/dL (32-36); Mean Corpuscular Hgb 29.4 pg (27.0-32.0); Mean Corpuscular Volume 87.2 fL (80-94); Mean Platelet Vol. 11.4 fl (6.2-12.0); Monocyte# 0.67 X10^3/uL; Monocyte% 13.2 % (0-10); NRBC Flagged by Analyzer 0 % (0-5); Neutrophil # 2.97 X10^3/uL (2.7-7.7); Neutrophil % 58.4 % (47-70); Platelet Count 114 K/mm3 (150-450); RBC Distribution Width SD 48.2 fl (35.1-43.9); Red Blood Count 5.06 M/mm3 (4.6-6.2); White Blood Count 5.1 K/mm3 (4.4-11.0)
[2021-01-17 18:28] LABS: ALB/GLOB Ratio 0.9 RATIO (0.9-2.4); AST(SGOT) 44 U/L (15-37); Alanine Aminotransfer ALT/SGPT 40 U/L (16-61); Albumin, Serum 3.6 g/dL (3.2-5.0); Alkaline Phosphatase 77 U/L (45-117); Anion Gap 9 (5-15); BUN 31 mg/dL (7-18); BUN/Creat Ratio 18.9 RATIO (10-20); Chloride 97 mmol/L (98-107); Cholesterol 90 mg/dL (200); Creatinine, Serum 1.64 mg/dL (0.70-1.30); EST Glomerular Filtration Rate 45 mL/min (>60); Est Glom Filt Rate - Afr Amer 54 mL/min (>60); Globulin 4.2 g/dL (2.2-4.2); Glucose 372 mg/dL (74-106); High Density Lipoprotein 27 mg/dL; Potassium 4.3 mmol/L (3.5-5.1); Protein, Total 7.8 g/dL (6.4-8.2); Sodium Level 132 mmol/L (136-145); Triglycerides 282 mg/dL; Very Low Density Lipoprotein 56 mg/dL (5-40)
[2021-01-17 18:58] LABS: Hemoglobin A1c 8.5 % (3.8-5.6)
== END ==
PROVIDERS: PCP Family Medicine; Visit Provider Family Medicine
DX: E11.40 Type 2 diabetes mellitus with diabetic neuropathy, unspecified (principal); R05.9 Cough, unspecified; J44.9 Chronic obstructive pulmonary disease, unspecified
CPT/HCPCS: 36415; 80053; 80061; 83036; 85025; 86769; 87633

== ENCOUNTER 2021-01-21 23:27 | Inpatient (IN) | payer MEDICARE, MEDICAID, SELFPAY ==
[2021-01-21 23:28] VITALS: BP 126/64; PULSE 100; RESP 18; TEMP 39.4; O2SAT 96; BMI 31.0
[2021-01-21 23:57] VITALS: BP 143/92; PULSE 106; RESP 18; TEMP 37.9; O2SAT 93
[2021-01-22] VITALS (13 sets, daily range): BP systolic 108–148; BP diastolic 57–72; PULSE 83–100; RESP 8–20; TEMP 36.8–37.4; O2SAT 91–96; BMI 30.2
--- NOTE | 2021-01-22 01:02 | CT_ITS ---
EXAM: CT Abdomen and Pelvis With Intravenous Contrast CLINICAL INDICATION: 65 years old, Male; abd pain TECHNIQUE: Helically acquired images were obtained of the abdomen and pelvis with intravenous contrast. This CT exam was performed using one or more of the following dose reduction techniques: automated exposure control, adjustment of the mA and/or kV according to patient size, and/or use of iterative reconstruction technique. This report was created using [employer] report generation technology. CONTRAST: IV 100mL Isovue-300 COMPARISON: CT Abdomen Pelvis dated 07/14/2020 FINDINGS: Lower thorax: Infiltrates in the lung bases worrisome for pneumonia. Calcified granulomata in the right lung. No cardiomegaly. No significant pericardial effusion. ABDOMEN: Liver: Unremarkable. Homogeneous. No focal mass. Gallbladder and bile ducts: Cholecystectomy. No intra- or extrahepatic biliary ductal dilation. Pancreas: Unremarkable. No focal cystic or solid mass. Spleen: Calcified granulomata in the spleen. Adrenals: Unremarkable. No nodules. Kidneys and ureters: Unremarkable. Normal renal size and position. No hydronephrosis. Stomach and bowel: There is fluid in the colon suggesting diarrhea. No stomach or bowel distention. No focal inflammatory change. PELVIS: Appendix: Normal appendix. Bladder: Unremarkable. Reproductive: Prostate hypertrophy. ABDOMEN and PELVIS: Intraperitoneal space: Unremarkable. No ascites or other fluid collection. No free air. Bones/joints: Grade 1 anterolisthesis of L5 on S1 due to bilateral spondylolistheses. No suspicious lytic or blastic abnormality. Soft tissues: Unremarkable. No discrete abdominal or pelvic wall hernia. Vasculature: Atherosclerotic disease. Abdominal aorta is non-dilated. Lymph nodes: Unremarkable. No enlarged lymph nodes. Tubes, lines and devices: Automatic implantable cardioverter defibrillator (AICD). CT/Abdomen/Pelvis W IV Cont ONLY IMPRESSION: 1. Infiltrates in the lung bases worrisome for pneumonia. 2. There is fluid in the colon suggesting diarrhea. Electronically Signed: Harish Gandhi MD at 4:06 EST Tel , Service support ,
[2021-01-22] MEDS: 0.9% Normal Saline 1,000 ML 999 ML IV (01:40)
[2021-01-22 02:31] LABS: Absolute Lymphocyte Count 0.79 X10^3/uL (0.83-4.51); Absolute Neutrophil Count 3.3 X10^3/uL (2.0-7.7); Basophil# 0.01 X10^3/uL; Basophil% 0.2 % (0-1); Hematocrit 41.9 % (40-54); Hemoglobin 14.2 g/dL (13.0-16.5); Lymphocyte # 0.79 X10^3/ul (0.83-4.51); Lymphocyte % 16.7 % (19-41); Mean Corp Hgb Conc 33.9 g/dL (32-36); Mean Corpuscular Hgb 28.9 pg (27.0-32.0); Mean Corpuscular Volume 85.2 fL (80-94); Mean Platelet Vol. 12.3 fl (6.2-12.0); Monocyte# 0.61 X10^3/uL; Monocyte% 12.9 % (0-10); NRBC Flagged by Analyzer 0 % (0-5); Neutrophil # 3.29 X10^3/uL (2.7-7.7); Neutrophil % 69.4 % (47-70); POSITIVE COUNT YES; Platelet Count 93 K/mm3 (150-450); RBC Distribution Width CV 14.8 % (11.6-14.6); RBC Distribution Width SD 46.3 fl (35.1-43.9); Red Blood Count 4.92 M/mm3 (4.6-6.2); White Blood Count 4.7 K/mm3 (4.4-11.0)
[2021-01-22 02:32] LABS: Differential Indicated SCAN CRITERIA MET
[2021-01-22 02:45] LABS: Anion Gap 13 (5-15); BUN 28 mg/dL (7-18); BUN/Creat Ratio 17.4 RATIO (10-20); Calcium,Total 8.6 mg/dL (8.5-10.1); Chloride 96 mmol/L (98-107); Creatinine, Serum 1.61 mg/dL (0.70-1.30); EST Glomerular Filtration Rate 46 mL/min (>60); Est Glom Filt Rate - Afr Amer 55 mL/min (>60); Estimated Creatinine Clearance 54.66 ml/min; Glucose 422 mg/dL (74-106); Potassium 4.2 mmol/L (3.5-5.1); Sodium Level 129 mmol/L (136-145)
[2021-01-22 02:49] LABS: Differential Comment SCANNED
[2021-01-22] MEDS: Ipratropium/Albuterol Sulfate 3 ML AMPUL.NEB INHALATION ×3 (04:46→19:17)
--- NOTE | 2021-01-22 05:12 | RAD_ITS ---
EXAM: XR Chest, 1 View CLINICAL INDICATION: 65 years old, Male; cough TECHNIQUE: Frontal view of the chest. This report was created using [employer] report generation technology. COMPARISON: XR Chest dated 02/01/2018 FINDINGS: Lungs and pleural spaces: Infiltrates or atelectasis in the lung bases. No pneumothorax. No effusion. Heart: Unremarkable. Cardiac silhouette not enlarged. Mediastinum: Central airways and mediastinal contour are unremarkable. Bones/joints: Median sternotomy. Soft tissues: Unremarkable. Tubes, lines and devices: Pacemaker. RAD/Chest 1 View (Portable) IMPRESSION: Infiltrates or atelectasis in the lung bases. Electronically Signed: Harish Gandhi MD at 5:36 EST Tel , Service support ,
[2021-01-22 06:01] LABS: Lactic Acid 1.8 mmol/L (0.4-1.9)
--- NOTE | 2021-01-22 06:44 | EX.ED.DYSGE1 ---
HPI History of Present Illness Chief Complaint: Diarrhea Narrative Narrative: Patient is a 65-year-old male from home. He states that for the past 7 to 10 days he has been having persistent bouts of diarrhea. He denies any history of intestinal disorder. He states that there has been no known sick contacts recent antibiotic use or travel. He also denies any exposure to livestock. He does state he has history of COPD but does not need supplemental oxygen. He reports that his family doctor ordered an outpatient Covid test on him which was reportedly negative. He states he is getting to the point where he is having bouts of falling now with his persistent diarrhea and secondary to this comes to the ER for evaluation [facility] Medical History Atherosclerosis of [place] coronary artery of [place] heart without angina pectoris Chronic kidney disease Claudication Constipation COPD (chronic obstructive pulmonary disease) DVT (deep venous thrombosis) Essential (primary) hypertension History of non-ST elevation myocardial infarction (NSTEMI) (10/11/13) Hyperlipidemia IBS (irritable bowel syndrome) Ischemic cardiomyopathy NSVT (nonsustained ventricular tachycardia) Obesity Old inferior wall myocardial infarction (02/27/05) Pulmonary embolism (09/2013) Secondary pulmonary arterial hypertension Type 2 diabetes mellitus Home Medications atorvastatin 80 mg PO DAILY 10/05/13 [History Last Taken 05/31/20] nitroglycerin 0.4 mg SUBLINGUAL Q5M PRN #25 tab 10/14/13 [Rx Last Taken Unknown] albuterol sulfate 6.7 gm IH Q4H PRN PRN 07/22/16 [History Last Taken 05/31/20] hydroxyzine HCl 50 mg tablet 50 mg PO QHS tab 03/14/17 [History Last Taken 05/30/20] losartan 50 mg tablet 50 mg PO DAILY 02/01/18 [History Last Taken 05/31/20] rivaroxaban 15 mg tablet 20 mg PO DAILY tab 02/25/20 [History Last Taken 05/31/20] trazodone 50 mg tablet 50 mg PO QHS tab 02/25/20 [History Last Taken 05/30/20] Levocetirizine Dihydrochloride 5 mg PO QHS 05/31/20 [History Last Taken 05/30/20] Victoza 1.8 mg SQ DAILY 05/31/20 [History Last Taken 05/31/20] carvedilol 6.25 mg PO BID 05/31/20 [History Last Taken 05/31/20] furosemide 40 mg PO DAILY 05/31/20 [History Last Taken 05/31/20] insulin aspart U-100 80 units SQ BID 05/31/20 [History Last Taken 05/31/20] insulin aspart U-100 See Protocol SC TIDCM 05/31/20 [History Last Taken 05/31/20] oxycodone-acetaminophen 1 tablet PO Q4H PRN 05/31/20 [History Last Taken 05/31/20] umeclidinium-vilanterol 1 puff PO DAILY 05/31/20 [History Last Taken 05/31/20] insulin glargine 86 units SC BID pen 06/03/20 [Rx Last Taken Unknown] Allergy/AdvReac Type Severity Reaction Status Date / Time vancomycin AdvReac Rash Verified 11/05/20 13:09 Family History Father CAD (coronary artery disease) Diabetes Brother CAD (coronary artery disease) Diabetes Mother Cancer Leukemia Brother Diabetes Surgical History H/O coronary artery bypass surgery (04/18/99) History of coronary artery stent placement (02/27/05) History of implantable cardiac defibrillator (ICD) (02/07/18) History of left heart catheterization (10/13/13) Hx of cataract extraction Social History Smoking Status: Former smoker pack-years: 39 second hand exposure: No alcohol intake: never substance use type: does not use caffeine: Yes (1/day) what type of physical activity do you participate in: none ROS ROS ED Constitutional Constitutional ED: Denies chills or fever(s) ENT ENT ED: Denies sore throat Cardiovascular Cardiovascular: Denies chest pain Respiratory/Chest Respiratory/Chest: Reports cough; Denies dyspnea Gastrointestinal Gastrointestinal: Reports diarrhea; Denies abdominal pain, nausea or vomiting Genitourinary Genitourinary ED: Denies dysuria Musculoskeletal Musculoskeletal: Denies myalgias Integumentary Denies rash Neurologic Neurologic: Denies headache(s) Hematologic/Lymphatic Hematologic/Lymphatic: Reports easy bleeding and easy bruising EXAM Physical Exam Const Vital Signs: 01/21/21 23:28 01/21/21 23:57 01/22/21 01:28 Temperature 103 F H 100.2 F H Temperature Source Temporal Temporal Pulse Rate 100 106 H 100 Respiratory Rate 18 18 16 Respiratory Pattern Blood Pressure 126/64 H 143/92 H 130/68 H Blood Pressure Mean 84 109 88 Pulse Ox 96 93 91 Oxygen Delivery Method Room Air Room Air Room Air 01/22/21 02:37 01/22/21 04:46 01/22/21 05:13 Temperature 99.4 F H 98.2 F Temperature Source Oral Oral Pulse Rate 89 96 94 Respiratory Rate 16 14 16 Respiratory Pattern Normal Blood Pressure 108/72 121/57 H Blood Pressure Mean 84 78 Pulse Ox 95 93 Oxygen Delivery Method Room Air Room Air Positive well nourished, well developed, obese and unkempt General Appearance ED: unkempt and well developed Nutritional Appearance: obese HEENT Reports dry mucous membranes Mouth ED: Yes dry mucous membranes Mouth: dry mucous membranes Eyes PERRL and EOMs intact bilaterally Neck supple and no JVD Resp normal respiratory effort Resp Narrative: Breath sounds are diminished throughout with diffuse expiratory wheeze consistent with history of COPD but no signs of respiratory distress Cardio regular rate and regular rhythm GI non-tender, non-distended and no masses GI Narrative: Abdomen is soft nontender nondistended with hyperactive bowel sounds. No voluntary guarding or rigidity no pulsatile mass. Palpation: soft Back/Spine no CVA tenderness Extremity Extremity Narrative: Patient has chronic soft tissue changes to his bilateral lower legs consistent with peripheral arterial disease however no new or acute findings Neuro oriented x3 and CN's II-XII intact bilaterally Sensorium / Orientation: alert Psych mental status grossly normal Appearance: unkempt Skin Skin Narrative: Soft tissue changes to the bilateral lower legs consistent with peripheral arterial disease MDM MDM MDM Narrative Medical decision making narrative: Patient presented to the ER complaining of 7 to 10 days of persistent diarrhea. He has no known sick contacts and no history of intestinal disorder. He states he had a an outpatient Covid test by his family doctor which was negative. Therefore at this time with his persistent diarrhea I did elect to perform basic laboratory studies as well as a CT scan. A stool pathogen panel as well as influenza swab was also obtained. Stool pathogen panel was negative influenza is negative. CT scan shows fluid in the colon consistent with diarrhea but otherwise no signs of infection or blockage. The patient's chest x-ray shows atelectasis versus infiltrate. The patient does have COPD and has persistent cough but this is chronic for him and therefore I feel it is most likely related to atelectasis instead of underlying true infection. The patient's triage vitals showed a temperature of 103 but he was not given any type of antipyretic medication and his temperature is now 98.2. Moreover patient does not have a white count left shift or lactic acidosis. The patient shows that he is not caring for himself as he has stooled down his legs. He also has not able to ambulate and has report recurrent falls at home secondary to weakness. Therefore at this time I feel patient will need admitted to the hospital for continued IV hydration and to further evaluate him for causes of diarrhea. He states he is agreeable to rehab placement if necessary because of his weakness and inability to ambulate Lab Data Attestation: I reviewed the patient's lab results. Labs: Laboratory Results - last 24 hr 01/22/21 01/22/21 01/22/21 02:20 02:20 05:25 WBC 4.7 RBC 4.92 Hgb 14.2 Hct 41.9 MCV 85.2 MCH 28.9 MCHC 33.9 RDW Std Deviation 46.3 H RDW Coeff of [place]ula 14.8 H Plt Count 93 L MPV 12.3 H Immature Gran % (Auto) 0.800 Neut % (Auto) 69.4 Lymph % (Auto) 16.7 L [place] % (Auto) 12.9 H Eos % (Auto) 0.0 Baso % (Auto) 0.2 Absolute Neuts (auto) 3.3 Absolute Lymphs (auto) 0.79 L Nucleated RBC % 0 Differential Comment SCANNED Sodium 129 L Potassium 4.2 Chloride 96 L Carbon Dioxide 20.0 L Anion Gap 13 BUN 28 H Creatinine 1.61 H Estim Creat Clear Calc 54.66 Est GFR (MDRD) Af Amer 55 L Est GFR (MDRD) Non-Af 46 L BUN/Creatinine Ratio 17.4 Glucose 422 H Lactic Acid 1.8 Calcium 8.6 Magnesium 2.0 Radiography Diagnostic Testing: Clinical Impression(s) from Imaging Studies Abdomen/Pelvis CT 01/22/21 01:02 IMPRESSION: 1. Infiltrates in the lung bases worrisome for pneumonia. 2. There is fluid in the colon suggesting diarrhea. Electronically Signed: Harish Gandhi MD at 4:06 EST Tel , Service support , Chest X-Ray 01/22/21 05:12 IMPRESSION: Infiltrates or atelectasis in the lung bases. Electronically Signed: Harish Gandhi MD at 5:36 EST Tel , Service support , Discharge Plan Triage Chief Complaint: Diarrhea ED Provider: Darryl Márquez Dx/Rx/DC Orders Clinical Impression: Diarrhea, Dehydration, Inability to walk Prescriptions: No Action hydroxyzine HCl 50 mg tablet 50 mg PO QHS RF: 0 losartan 50 mg tablet 50 mg PO DAILY RF: 0 Xarelto 15 mg tablet 20 mg PO DAILY RF: 0 atorvastatin 80 MG tablet 80 mg PO DAILY RF: 0 nitroglycerin 0.4 MG tablet 0.4 mg sublingual Q5M PRN (Reason: Angina pain ) Qty: 25 RF: 0 trazodone 50 mg tablet 50 mg PO QHS RF: 0 albuterol sulfate 6.7 GM HFA aerosol inhaler 6.7 gm IH Q4H PRN PRN (Reason: COPD) RF: 0 umeclidinium-vilanterol 1 EACH blister with device 1 puff PO DAILY RF: 0 Victoza 1.8 mg SQ DAILY RF: 0 oxycodone-acetaminophen 1 TABLET tablet 1 tablet PO Q4H PRN (Reason: Pain Score 1-10) RF: 0 insulin aspart U-100 100 UNITS/ML insulin pen See Protocol units SC TIDCM RF: 0 Levocetirizine Dihydrochloride 5 mg PO QHS RF: 0 furosemide 40 MG tablet 40 mg PO DAILY RF: 0 carvedilol 6.25 MG tablet 6.25 mg PO BID RF: 0 insulin aspart U-100 100 UNIT/ML solution 80 units SQ BID RF: 0 insulin glargine 100 UNITS/ML insulin pen 86 units SC BID RF: 0 Primary Care Provider: Bulmaro Garcia Referrals: Bulmaro Garcia MD [Primary Care Provider] - Disposition Disposition: Acute Care Hospital [facility]
--- NOTE | 2021-01-22 07:20 | HP.PCM.HOS_ITS ---
HPI - General General Date of Admission: 01/22/21 Date of Service: 01/22/21 Chief Complaint: Generalized weakness HPI Narrative PETE ORTIZ, is a 65 M who presents generalized weakness. Patient has multiple comorbidities including coronary artery disease status post CABG diabetes mellitus type 2 peripheral arterial disease who presents with generalized weakness. Per patient symptoms have been ongoing since 01/12/2021 (a day before ). He also did experience watery diarrhea. He has since experienced progressive generalized weakness to the extent where he can hardly ambulate. Presented to the emergency department was found to be dehydrated. There was a suspicion of possible COVID 19 this was confirmed with PCR. Admitted to regular nursing floor for further management [facility] Medical History Atherosclerosis of [place] coronary artery of [place] heart without angina pectoris Chronic kidney disease Claudication Constipation COPD (chronic obstructive pulmonary disease) DVT (deep venous thrombosis) Essential (primary) hypertension History of non-ST elevation myocardial infarction (NSTEMI) (10/11/13) Hyperlipidemia IBS (irritable bowel syndrome) Ischemic cardiomyopathy NSVT (nonsustained ventricular tachycardia) Obesity Old inferior wall myocardial infarction (02/27/05) Pulmonary embolism (09/2013) Secondary pulmonary arterial hypertension Type 2 diabetes mellitus Home Medications atorvastatin 80 mg PO DAILY 10/05/13 [History Last Taken 01/21/21] nitroglycerin 0.4 mg SUBLINGUAL Q5M PRN #25 tab 10/14/13 [Rx Last Taken Unknown] albuterol sulfate 6.7 gm IH Q4H PRN PRN 07/22/16 [History Last Taken 05/31/20] hydroxyzine HCl 50 mg tablet 50 mg PO QHS tab 03/14/17 [History Last Taken 01/21/21] losartan 50 mg tablet 50 mg PO DAILY 02/01/18 [History Last Taken 01/21/21] rivaroxaban 15 mg tablet 20 mg PO DAILY tab 02/25/20 [History Last Taken ] trazodone 50 mg tablet 50 mg PO QHS tab 02/25/20 [History Last Taken 01/21/21] Levocetirizine Dihydrochloride 5 mg PO QHS 05/31/20 [History Last Taken 01/21/21] Victoza 1.8 mg SQ DAILY 05/31/20 [History Last Taken 05/31/20] carvedilol 6.25 mg PO BID 05/31/20 [History Last Taken 01/21/21] furosemide 40 mg PO DAILY 05/31/20 [History Last Taken 01/21/21] insulin aspart U-100 80 units SQ BIDCM 05/31/20 [History Last Taken 05/31/20] oxycodone-acetaminophen 1 tablet PO Q4H PRN 05/31/20 [History Last Taken 05/31/20] umeclidinium-vilanterol 1 puff PO DAILY 05/31/20 [History Last Taken 01/21/21] insulin glargine [Lantus U-100 Insulin] 80 unit SUBCUT BID 01/22/21 [History Last Taken 01/21/21] liraglutide [Victoza 3-Mychal] 1.8 mg SUBCUT DAILY 01/22/21 [History Last Taken 01/21/21] Allergy/AdvReac Type Severity Reaction Status Date / Time No Known Allergies Allergy Verified 01/22/21 08:22 Family History Father CAD (coronary artery disease) Diabetes Brother CAD (coronary artery disease) Diabetes Mother Cancer Leukemia Brother Diabetes Surgical History H/O coronary artery bypass surgery (04/18/99) History of coronary artery stent placement (02/27/05) History of implantable cardiac defibrillator (ICD) (02/07/18) History of left heart catheterization (10/13/13) Hx of cataract extraction Social History Smoking Status: Former smoker pack-years: 39 second hand exposure: No alcohol intake: never substance use type: does not use caffeine: Yes (1/day) what type of physical activity do you participate in: none ROS ROS Narrative GENERAL: Progressive generalized weakness, anorexia HEENT: denies headache, sinus congestion, or drainage, RESPIRATORY: denies cough, sputum production, CARDIAC: denies chest pain, palpitations, orthopnea, PND GASTROINTESTINAL: denies abdominal pain, nausea, GENITOURINARY: denies dysuria, urgency, frequency, EXTREMITY: denies swelling MUSCULOSKELETAL: denies current joint pain or tenderness NEUROLOGIC: denies focal numbness, weakness, tingling HEMATOLOGIC: denies easy bruising and/or hemorrhage INTEGUMENT: denies rashes PSYCHIATRIC: denies suicidal or homicidal ideation Vital Signs Vital Signs Vital Signs: 01/21/21 23:28 01/21/21 23:57 01/22/21 01:28 Temperature 103 F H 100.2 F H Temperature Source Temporal Temporal Pulse Rate 100 106 H 100 Respiratory Rate 18 18 16 Respiratory Pattern Blood Pressure 126/64 H 143/92 H 130/68 H Blood Pressure Mean 84 109 88 Pulse Ox 96 93 91 Oxygen Delivery Method Room Air Room Air Room Air 01/22/21 02:37 01/22/21 04:46 01/22/21 05:13 Temperature 99.4 F H 98.2 F Temperature Source Oral Oral Pulse Rate 89 96 94 Respiratory Rate 16 14 16 Respiratory Pattern Normal Blood Pressure 108/72 121/57 H Blood Pressure Mean 84 78 Pulse Ox 95 93 Oxygen Delivery Method Room Air Room Air Weight Weight: 115.666 kg Body Mass Index (BMI) 31.0 Physical Exam Narrative GENERAL: cooperative HEENT: Atraumatic; EYES; Anicteric, Normal Conjunctiva NECK; supple, normal thyroid, RESPIRATORY: Diminished to auscultation CARDIOVASCULAR: Regular S1 S2, GI: soft, normoactive bowel sounds, : No Renal angle tenderness; EXTREMITIES: Stasis dermatitis, MUSCULOSKELETAL: no muscle waisting NEURO: Awake; no lateralizing signs. SKIN: No Rash PSYCH; Flat affect Results Lab / Micro Data Result Diagrams: 01/22/21 02:20 01/22/21 02:20 Labs: Laboratory Results - last 24 hr 01/22/21 02:20: WBC 4.7, RBC 4.92, Hgb 14.2, Hct 41.9, MCV 85.2, MCH 28.9, MCHC 33.9, RDW Std Deviation 46.3 H, RDW Coeff of Eula 14.8 H, Plt Count 93 L, MPV 12.3 H, Immature Gran % (Auto) 0.800, Neut % (Auto) 69.4, Lymph % (Auto) 16.7 L, [place] % (Auto) 12.9 H, Eos % (Auto) 0.0, Baso % (Auto) 0.2, Absolute Neuts (auto) 3.3, Absolute Lymphs (auto) 0.79 L, Nucleated RBC % 0, Differential Comment SCANNED 01/22/21 02:20: Sodium 129 L, Potassium 4.2, Chloride 96 L, Carbon Dioxide 20.0 L, Anion Gap 13, BUN 28 H, Creatinine 1.61 H, Estim Creat Clear Calc 54.66, Est GFR (MDRD) Af Amer 55 L, Est GFR (MDRD) Non-Af 46 L, BUN/Creatinine Ratio 17.4, Glucose 422 H, Calcium 8.6, Magnesium 2.0 01/22/21 05:25: Lactic Acid 1.8 Micro: Microbiology 01/22/21 05:19 Mucosa - Nasopharyngeal Influenza Types A,B Direct FA (BAYLEE) - Final 01/22/21 01:50 Stool Enteric Bacteriology - Final Radiology Impression Abdomen/Pelvis CT 01/22/21 01:02 IMPRESSION: 1. Infiltrates in the lung bases worrisome for pneumonia. 2. There is fluid in the colon suggesting diarrhea. Electronically Signed: Harish Gandhi MD at 4:06 EST Tel , Service support , Chest X-Ray 01/22/21 05:12 IMPRESSION: Infiltrates or atelectasis in the lung bases. Electronically Signed: Harish Gandhi MD at 5:36 EST Tel , Service support , Assessment & Plan Assessment/Plan (1) COVID-19: (2) Diarrhea: (3) Dehydration: (4) FTT (failure to thrive) in adult: PLAN: Patient is a 65-year-old gentleman unvaccinated against COVID-19, presented with progressive generalized weakness with associated diarrhea. Tested positive for COVID-19 admitted to regular nursing floor for further management 1. COVID 19 ?Patient currently presenting with only GI symptoms mainly diarrhea. Imaging studies obtained on admission demonstrated infiltrate in the lung bases consist ent with pneumonitis. Admitted to regular nursing floor for management of his symptoms 2. Acute viral gastroenteritis ?Secondary to COVID 19 plan is to treat symptomatically 3. Acute kidney injury on chronic kidney disease stage IIIa ?Patient baseline creatinine around 1.3, was 1.61 on admission started on IV fluid with subsequent monitoring of electrolytes with BMPs ordered 4. Diabetes mellitus type II -patient's oral hypoglycemics held. Placed on long acting insulin, Accu-Cheks a.c. and at bedtime and covered with sliding scale insulin 5. Coronary artery disease ?Status post CABG 6. Hypertension - Blood pressure controlled, home medications continued with dose adjustment as needed 7. Peripheral arterial disease ?Per history 8. Ischemic heart disease ?Status post AICD placement 9. History of DVT/PE ?Patient is on Xarelto discontinued 10. Irritable bowel syndrome ?Per history 11. COPD ?Currently not in exacerbation aerosol treatments as needed 12. Class I obesity with BMI of 30.3 ?Weight loss advised 13. DVT prophylaxis ?Patient is on Xarelto Advance planning; did discuss with the patient and family regarding advanced directives as well as CODE STATUS. Did explain the various scenarios involved ( FULL CODE, DNR CCA, DNR CCA with no intubation, and DNR CC and what each meant) patient elected full code with CPR and intubation if warranted. Order was p laced. Time spent on discussion 18 minutes. Charges/Coding Visit Charges Inpatient E&M: 06447 Init Hosp L3 Procedures Hospitalists Procedures: 95784 Advncd Care Plan 30 Min
[2021-01-22] MEDS: 0.9% Normal Saline 1,000 ML 150 ML IV ×3 (08:30→21:12)
[2021-01-22 08:51] LABS: Probe Check PASS
[2021-01-22 11:16] LABS: Fibrinogen 556 mg/dl (203-444)
[2021-01-22 11:22] LABS: D-Dimer Quantitative (DVT/PE) 0.85 FEU/ug/m (0.27-0.49)
[2021-01-22 11:26] LABS: Lactic Acid 1.8 mmol/L (0.4-1.9)
[2021-01-22 11:33] LABS: Procalcitonin 0.21 ng/mL (0.00-0.09)
[2021-01-22] MEDS: Insulin Lispro 100 UNIT/ML INSULN.PEN 80 UNIT SC (11:37)
[2021-01-22 11:41] LABS: AST(SGOT) 37 U/L (15-37); Alanine Aminotransfer ALT/SGPT 23 U/L (16-61); Albumin, Serum 2.7 g/dL (3.2-5.0); Alkaline Phosphatase 60 U/L (45-117); Bilirubin, Direct 0.38 mg/dL (0.00-0.30); CPK Total, Creatine Kinase 603 U/L (39-308); Globulin 4.1 g/dL (2.2-4.2); Glucose 452 mg/dL (74-106); LDH 303 U/L (87-241); Protein, Total 6.8 g/dL (6.4-8.2); Troponin-I HS 124 pg/mL (3.0-78.0)
[2021-01-22 12:00] LABS: Bedside Glucose > 500 mg/dL (70-110)
[2021-01-22 12:00] LABS: Bedside Glucose 433 mg/dL (70-110)
[2021-01-22] MEDS: Loperamide 2 MG Capsule 4 MG PO (12:44)
[2021-01-22] MEDS: Carvedilol 6.25 MG Tablet PO ×2 (12:44→21:12)
[2021-01-22 12:50] LABS: Bedside Glucose 395 mg/dL (70-110)
[2021-01-22] MEDS: Glucerna Shake 120 ML LIQUID PO (17:38)
[2021-01-22] MEDS: Rivaroxaban 20 MG Tablet PO (17:39)
[2021-01-22 17:46] LABS: Bedside Glucose 217 mg/dL (70-110)
[2021-01-22] MEDS: Insulin Lispro 100 UNIT/ML INSULN.PEN 50 UNIT SC (17:54)
--- NOTE | 2021-01-22 18:30 | CASEMGMT ---
TIA ESCOBAR POCKETED SPRING MACHINE OPERATOR CM spoke w/patient for initial transition planning/care coordination assessment. TIA ESCOBAR introduced self and role at [facility]. Pt voices understanding and consents to assessment at this time. Pt is A/O at this time and answers all questions appropriately. Care providers, pharmacy, and demographics verified/updated at this time. COVID testing completed @ [facility]. PCP: Dr Garcia Specialists: Dr Garza-cardiology Preferred Pharmacy: [facility] Retail Insurance: [employer] Prescription Benefit: Yes Living Will/HPOA: Pt does not currently have LW/HCPOA. LNOK: 3 children. Daughter, Janett. Daughter, Shereen. Son, Edwin Living Arrangements: Lives alone. Was independent until about 3 weeks ago when he started becoming ill and has been becoming more weak. He has been falling and it has been becoming more difficult to care for self. Transportation: Pt drives DME: Has functioning glucometer w/supplies. Has no other DME. No home O2. HHC/SNF: No hx of either. Pt states if SNF is needed @ d/c, he would be agreeable and if he is able to go home, may be interested in HHC. PLAN: TBD by course of treatment and progress w/therapy. SNF vs Home w/HHC. Nikki JULES RN, CM
[2021-01-22] MEDS: traZODone 50 MG Tablet PO (21:12)
[2021-01-22] MEDS: Loratadine 10 MG Tablet PO (21:12)
[2021-01-22] MEDS: Atorvastatin Calcium 80 MG Tablet PO (21:12)
[2021-01-22] MEDS: hydrOXYzine PAM 25 MG Capsule 50 MG PO (21:12)
[2021-01-22 21:26] LABS: Bedside Glucose 190 mg/dL (70-110)
[2021-01-23] VITALS (13 sets, daily range): BP systolic 105–149; BP diastolic 55–83; PULSE 79–88; RESP 18–22; TEMP 36.6–38.2; O2SAT 92–96
[2021-01-23] MEDS: Acetaminophen 325 MG Tablet 650 MG PO ×2 (06:18→15:06)
[2021-01-23] MEDS: Ipratropium/Albuterol Sulfate 3 ML AMPUL.NEB INHALATION ×3 (06:40→19:46)
[2021-01-23 06:44] LABS: Absolute Lymphocyte Count 1.17 X10^3/uL (0.83-4.51); Absolute Neutrophil Count 2.8 X10^3/uL (2.0-7.7); Basophil# 0.01 X10^3/uL; Basophil% 0.2 % (0-1); Eosinophil# 0.01 X10^3/uL; Eosinophils% 0.2 % (0-5); Hematocrit 38.8 % (40-54); Hemoglobin 13.1 g/dL (13.0-16.5); Lymphocyte # 1.17 X10^3/ul (0.83-4.51); Lymphocyte % 27.2 % (19-41); Mean Corp Hgb Conc 33.8 g/dL (32-36); Mean Corpuscular Volume 85.8 fL (80-94); Mean Platelet Vol. 12.1 fl (6.2-12.0); Monocyte# 0.28 X10^3/uL; Monocyte% 6.5 % (0-10); NRBC Flagged by Analyzer 0 % (0-5); Neutrophil # 2.79 X10^3/uL (2.7-7.7); POSITIVE COUNT YES; Platelet Count 99 K/mm3 (150-450); RBC Distribution Width CV 15.2 % (11.6-14.6); RBC Distribution Width SD 47.9 fl (35.1-43.9); Red Blood Count 4.52 M/mm3 (4.6-6.2); White Blood Count 4.3 K/mm3 (4.4-11.0)
[2021-01-23 07:13] LABS: Anion Gap 9 (5-15); BUN 19 mg/dL (7-18); BUN/Creat Ratio 18.4 RATIO (10-20); Calcium,Total 8.2 mg/dL (8.5-10.1); Chloride 109 mmol/L (98-107); Creatinine, Serum 1.03 mg/dL (0.70-1.30); EST Glomerular Filtration Rate 76 mL/min (>60); Est Glom Filt Rate - Afr Amer 93 mL/min (>60); Estimated Creatinine Clearance 85.44 ml/min; Glucose 72 mg/dL (74-106); Magnesium 1.8 mg/dL (1.6-2.6); Sodium Level 137 mmol/L (136-145)
[2021-01-23] MEDS: Carvedilol 6.25 MG Tablet PO ×2 (09:07→21:42)
[2021-01-23] MEDS: Glucerna Shake 120 ML LIQUID PO ×3 (09:07→17:30)
[2021-01-23 09:15] LABS: Bedside Glucose 128 mg/dL (70-110)
--- NOTE | 2021-01-23 09:20 | PN.HOSP_ITS ---
Subjective Subjective Patient admitted with acute gastroenteritis tested positive for Covid. Admitted to a monitored bed where patient is currently being managed. Patient hospital stay so far complicated by huge swings in patient's glucose levels. Adjustment made to his insulin therapy Objective Data Objective Data Vital Signs: Vital Signs Temp Pulse Resp BP Pulse Ox 98.1 F 88 18 105/55 L 92 01/23/21 03:00 01/23/21 06:55 01/23/21 03:00 01/23/21 03:00 01/23/21 03:00 Oxygen Flow Rate (L/min) 2 Oxygen Delivery Method Room Air Weight: 112.854 kg Body Mass Index (BMI) 30.2 Intake & Output: Intake and Output for Last 24 Hours 01/21/21 01/22/21 01/23/21 23:59 23:59 23:59 Intake Total 4047.5 / 4247.5 1200 / 1200 Output Total 300 / 300 Balance 4047.5 / 3947.5 900 / 900 Lab / Micro Data Result Diagrams: 01/23/21 05:02 01/23/21 05:02 Labs: Laboratory Results - last 24 hr 01/22/21 08:20: COVID-19 (TYLER) Detected 01/22/21 10:46: Fibrinogen 556 H, D-Dimer Quant (PE/DVT) 0.85 H* 01/22/21 10:46: Total Bilirubin 1.00, Direct Bilirubin 0.38 H, AST 37, ALT 23, Alkaline Phosphatase 60, Lactate Dehydrogenase 303 H, Total Creatine Kinase 603 H, Troponin I High Sens 124 H*, Total Protein 6.8, Albumin 2.7 L, Globulin 4.1 01/22/21 10:46: Lactic Acid 1.8 01/22/21 10:46: Procalcitonin 0.21 H 01/22/21 10:46: Glucose 452 H* 01/22/21 11:26: POC Glucose > 500 H* 01/22/21 11:53: POC Glucose 433 H 01/22/21 12:43: POC Glucose 395 H 01/22/21 17:37: POC Glucose 217 H 01/22/21 21:09: POC Glucose 190 H 01/23/21 05:02: WBC 4.3 L, RBC 4.52 L, Hgb 13.1, Hct 38.8 L, MCV 85.8, MCH 29.0, MCHC 33.8, RDW Std Deviation 47.9 H, RDW Coeff of Eula 15.2 H, Plt Count 99 L, MPV 12.1 H, Immature Gran % (Auto) 0.900, Neut % (Auto) 65.0, Lymph % (Auto) 27.2, [place] % (Auto) 6.5, Eos % (Auto) 0.2, Baso % (Auto) 0.2, Absolute Neuts (auto) 2.8, Absolute Lymphs (auto) 1.17, Nucleated RBC % 0 01/23/21 05:02: Sodium 137, Potassium 4.0, Chloride 109 H, Carbon Dioxide 19.0 L , Anion Gap 9, BUN 19 H, Creatinine 1.03, Estim Creat Clear Calc 85.44, Est GFR (MDRD) Af Amer 93, Est GFR (MDRD) Non-Af 76, BUN/Creatinine Ratio 18.4, Glucose 72 L, Calcium 8.2 L, Magnesium 1.8 01/23/21 09:03: POC Glucose 128 H Micro: Microbiology 01/22/21 20:52 Urine, Clean Catch Legionella Antigen - Final 01/22/21 20:52 Urine, Clean Catch Streptococcus pneumoniae Antigen (M - Final 01/22/21 01:50 Stool C. difficile DNA Amplification - Final 01/22/21 05:19 Mucosa - Nasopharyngeal Influenza Types A,B Direct FA (BAYLEE) - Final 01/22/21 01:50 Stool Enteric Bacteriology - Final Physical Exam Narrative GENERAL: cooperative HEENT: Atraumatic; EYES; Anicteric, Normal Conjunctiva NECK; supple, normal thyroid, RESPIRATORY: Diminished to auscultation CARDIOVASCULAR: Regular S1 S2, GI: soft, normoactive bowel sounds, : No Renal angle tenderness; EXTREMITIES: Stasis dermatitis, MUSCULOSKELETAL: no muscle waisting NEURO: Awake; no lateralizing signs. SKIN: No Rash PSYCH; Flat affect Assessment & Plan Assessment/Plan (1) COVID-19: (2) Diarrhea: (3) Dehydration: (4) FTT (failure to thrive) in adult: PLAN: Patient is a 65-year-old gentleman unvaccinated against COVID-19, presented with progressive generalized weakness with associated diarrhea. Tested positive for COVID-19 admitted to regular nursing floor for further management 1. COVID 19 ?Patient currently presenting with only GI symptoms mainly diarrhea. Imaging studies obtained on admission demonstrated infiltrate in the lung bases consistent with pneumonitis. Admitted to regular nursing floor for management of his symptoms ?02/02/2021; patient so far not requiring any supplemental oxygen held off in itiating Decadron and remdesivir 2. Acute viral gastroenteritis ?Secondary to COVID 19 plan is to treat symptomatically ?02/02/2021 no diarrhea episode this a.m. 3. Acute kidney injury on chronic kidney disease stage IIIa ?Patient baseline creatinine around 1.3, was 1.61 on admission started on IV fluid with subsequent monitoring of electrolytes with BMPs ordered ?02/02/2021 patient kidney function back to baseline - 4. Diabetes mellitus type II -patient's oral hypoglycemics held. Placed on long acting insulin, Accu-Cheks a.c. and at bedtime and covered with sliding scale insulin ?Huge swings in patient glucose levels with both hypo and hyperglycemic episodes. Adjusted insulin therapy 5. Coronary artery disease ?Status post CABG 6. Hypertension - Blood pressure controlled, home medications continued with dose adjustment as needed 7. Peripheral arterial disease ?Per history 8. Ischemic heart disease ?Status post AICD placement 9. History of DVT/PE ?Patient is on Xarelto discontinued 10. Irritable bowel syndrome ?Per history 11. COPD ?Currently not in exacerbation aerosol treatments as needed 12. Class I obesity with BMI of 30.3 ?Weight loss advised 13. DVT prophylaxis ?Patient is on Xarelto Charges/Coding Visit Charges Inpatient E&M: 51748 Subs Hosp L3
[2021-01-23] MEDS: Insulin Lispro 100 UNIT/ML INSULN.PEN 30 UNIT SC ×2 (12:34→17:32)
[2021-01-23 12:50] LABS: Bedside Glucose 268 mg/dL (70-110)
[2021-01-23] MEDS: Ceftriaxone 1 GM/50 ML BAG IV (14:58)
[2021-01-23] MEDS: 0.9% Saline Lock 10 ML Syringe IV ×2 (15:10→21:42)
[2021-01-23] MEDS: Rivaroxaban 20 MG Tablet PO (17:31)
[2021-01-23 17:45] LABS: Bedside Glucose 284 mg/dL (70-110)
[2021-01-23] MEDS: traZODone 50 MG Tablet PO (21:42)
[2021-01-23] MEDS: Atorvastatin Calcium 80 MG Tablet PO (21:42)
[2021-01-23] MEDS: hydrOXYzine PAM 25 MG Capsule 50 MG PO (21:42)
[2021-01-23] MEDS: Loratadine 10 MG Tablet PO (21:42)
[2021-01-23 22:20] LABS: Bedside Glucose 262 mg/dL (70-110)
[2021-01-24] VITALS (12 sets, daily range): BP systolic 133–136; BP diastolic 60–63; PULSE 74–92; RESP 16–22; TEMP 36.6–36.7; O2SAT 92–94
[2021-01-24 07:32] LABS: Absolute Lymphocyte Count 1.14 X10^3/uL (0.83-4.51); Basophil# 0.01 X10^3/uL; Basophil% 0.2 % (0-1); Eosinophil# 0.02 X10^3/uL; Eosinophils% 0.4 % (0-5); Hematocrit 39.8 % (40-54); Hemoglobin 13.2 g/dL (13.0-16.5); Lymphocyte # 1.14 X10^3/ul (0.83-4.51); Lymphocyte % 25.3 % (19-41); Mean Corp Hgb Conc 33.2 g/dL (32-36); Mean Corpuscular Hgb 28.8 pg (27.0-32.0); Mean Corpuscular Volume 86.7 fL (80-94); Mean Platelet Vol. 11.9 fl (6.2-12.0); Monocyte# 0.29 X10^3/uL; Monocyte% 6.4 % (0-10); NRBC Flagged by Analyzer 0 % (0-5); Neutrophil % 66.8 % (47-70); Platelet Count 122 K/mm3 (150-450); RBC Distribution Width CV 15.2 % (11.6-14.6); RBC Distribution Width SD 48.2 fl (35.1-43.9); Red Blood Count 4.59 M/mm3 (4.6-6.2); White Blood Count 4.5 K/mm3 (4.4-11.0)
[2021-01-24] MEDS: Ipratropium/Albuterol Sulfate 3 ML AMPUL.NEB INHALATION ×2 (07:37→21:16)
[2021-01-24 08:02] LABS: Anion Gap 6 (5-15); BUN 12 mg/dL (7-18); BUN/Creat Ratio 11.7 RATIO (10-20); Calcium,Total 8.6 mg/dL (8.5-10.1); Chloride 107 mmol/L (98-107); Creatinine, Serum 1.03 mg/dL (0.70-1.30); EST Glomerular Filtration Rate 76 mL/min (>60); Est Glom Filt Rate - Afr Amer 93 mL/min (>60); Estimated Creatinine Clearance 85.44 ml/min; Glucose 129 mg/dL (74-106); Potassium 3.9 mmol/L (3.5-5.1); Sodium Level 137 mmol/L (136-145)
[2021-01-24] MEDS: Carvedilol 6.25 MG Tablet PO ×2 (09:13→20:17)
[2021-01-24] MEDS: Loperamide 2 MG Capsule PO (09:13)
[2021-01-24] MEDS: Ceftriaxone 1 GM/50 ML BAG IV (09:13)
[2021-01-24] MEDS: Glucerna Shake 120 ML LIQUID PO ×2 (09:21→17:22)
[2021-01-24] MEDS: Insulin Lispro 100 UNIT/ML INSULN.PEN 30 UNIT SC ×3 (09:21→17:22)
[2021-01-24 09:31] LABS: Bedside Glucose 133 mg/dL (70-110)
--- NOTE | 2021-01-24 12:18 | NURSING ---
0900-pt in bed and o2 off and sleeping with breakfast tray in room. pt at times doesnt answer and seemingly with no interest in getting up or doing for self. immodium given for diarhea again today. pt on ra was 94% and left off. instructed pt that needs to stay awake and participate in care and to get up to chair and eat. will follow with spot checks for o2 needs but will leave off for now.
[2021-01-24 12:25] LABS: Bedside Glucose 303 mg/dL (70-110)
--- NOTE | 2021-01-24 15:36 | PCM.PN.HOSP ---
Subjective Subjective Follow-up for debility/acute COVID-19 gastroenteritis/acute COVID-19 pneumonia Patient was seen and examined. He has been on and off oxygen. Weaned off 3 L of oxygen. Currently on room air. He has been having diarrhea. Stool for C. difficile is negative. He feels very weak. Objective Data Objective Data Vital Signs: Vital Signs Temp Pulse Resp BP Pulse Ox 98.1 F 82 18 133/63 H 93 01/24/21 09:12 01/24/21 11:00 01/24/21 09:12 01/24/21 09:12 01/24/21 14:27 Oxygen Flow Rate (L/min) 92 Oxygen Delivery Method Room Air Weight: 112.854 kg Body Mass Index (BMI) 30.2 Intake & Output: Intake and Output for Last 24 Hours 01/22/21 01/23/21 01/24/21 23:59 23:59 23:59 Intake Total 4047.5 / 4247.5 2690 / 2930 530 / 530 Output Total 300 / 925 625 / 625 Balance 4047.5 / 3947.5 2390 / 2004 -95 / -95 Lab / Micro Data Result Diagrams: 01/24/21 06:58 01/24/21 06:58 Labs: Laboratory Results - last 24 hr 01/23/21 17:23: POC Glucose 284 H 01/23/21 21:33: POC Glucose 262 H 01/24/21 06:58: WBC 4.5, RBC 4.59 L, Hgb 13.2, Hct 39.8 L, MCV 86.7, MCH 28.8, MCHC 33.2, RDW Std Deviation 48.2 H, RDW Coeff of Eula 15.2 H, Plt Count 122 L, MPV 11.9, Immature Gran % (Auto) 0.900, Neut % (Auto) 66.8, Lymph % (Auto) 25.3, [place] % (Auto) 6.4, Eos % (Auto) 0.4, Baso % (Auto) 0.2, Absolute Neuts (auto) 3.0, Absolute Lymphs (auto) 1.14, Nucleated RBC % 0 01/24/21 06:58: Sodium 137, Potassium 3.9, Chloride 107, Carbon Dioxide 24.0, Anion Gap 6, BUN 12, Creatinine 1.03, Estim Creat Clear Calc 85.44, Est GFR (MDRD) Af Amer 93, Est GFR (MDRD) Non-Af 76, BUN/Creatinine Ratio 11.7, Glucose 129 H, Calcium 8.6 01/24/21 09:09: POC Glucose 133 H 01/24/21 12:17: POC Glucose 303 H Micro: Microbiology 01/22/21 20:52 Sputum, Expectorated/Coughed Gram Stain - Final 01/22/21 20:52 Sputum, Expectorated/Coughed Respiratory Culture - Final Mixed normal respiratory tonya. No Streptococcus pneumoniae, beta-hemolytic Streptococcus or Staphylococcus aureus isolated. 01/22/21 20:52 Urine, Clean Catch Legionella Antigen - Final 01/22/21 20:52 Urine, Clean Catch Streptococcus pneumoniae Antigen (M - Final 01/22/21 01:50 Stool C. difficile DNA Amplification - Final 01/22/21 05:19 Mucosa - Nasopharyngeal Influenza Types A,B Direct FA (BAYLEE) - Final 01/22/21 01:50 Stool Enteric Bacteriology - Final Physical Exam Narrative Physical exam: General: Alert, oriented x3, Cooperative, no apparent distress, appears very frail HEENT: Atraumatic Oral: Moist Mucosa Neck: Supple Lungs: Diminished to auscultation Cardiovascular: HS I+II, regular, no murmurs Abdomen: Bowel Sounds Present, Soft, Non Tender Extremities: No edema Assessment & Plan Assessment/Plan (1) FTT (failure to thrive) in adult: (2) COVID-19: (3) Diarrhea: QUALIFIERS: Diarrhea type: unspecified type Qualified Code(s): R19.7 - Diarrhea, unspecified (4) Dehydration: (5) Debility: PLAN: 1. Acute COVID-19 gastroenteritis, improved Stool for C. difficile and enteric panel are negative Continue on Imodium as needed 2. Hypoxia secondary to acute COVID-19 pneumonia Admitting chest x-ray shows bilateral infiltrates at the lung bases Patient was on 3 L of oxygen overnight; weaned off this morning Start on dexamethasone 6 mg daily Continue to monitor oxygen levels 3. BREN[place] on CKD stage IIIa, resolved Creatinine is at baseline 4. Type II DM, oral hypoglycemics continue to be on hold, Continue on Lantus, insulin sliding scale with blood glucose checks 5. Debility related to #1, PT and OT to evaluate and treat Check magnesium level 6. Rest of chronic medical conditions including CAD status post CABG, hypertension, PAD, ischemic heart disease status post AICD remain stable Charges/Coding Visit Charges Inpatient E&M: 08894 Subs Hosp L2
[2021-01-24 16:26] LABS: Magnesium 1.9 mg/dL (1.6-2.6)
[2021-01-24] MEDS: dexAMETHasone 4 MG Tablet 6 MG PO (17:27)
[2021-01-24] MEDS: Rivaroxaban 20 MG Tablet PO (17:28)
[2021-01-24 18:00] LABS: Bedside Glucose 194 mg/dL (70-110)
[2021-01-24] MEDS: traZODone 50 MG Tablet PO (20:17)
[2021-01-24] MEDS: Atorvastatin Calcium 80 MG Tablet PO (20:17)
[2021-01-24] MEDS: Loratadine 10 MG Tablet PO (20:17)
[2021-01-24] MEDS: hydrOXYzine PAM 25 MG Capsule 50 MG PO (20:17)
[2021-01-24 20:26] LABS: Bedside Glucose 213 mg/dL (70-110)
[2021-01-25] VITALS (9 sets, daily range): BP systolic 112–136; BP diastolic 54–78; PULSE 76–98; RESP 16–20; TEMP 36.3–36.8; O2SAT 92–97
[2021-01-25] MEDS: Ipratropium/Albuterol Sulfate 3 ML AMPUL.NEB INHALATION ×2 (06:51→12:38)
[2021-01-25 07:12] LABS: Absolute Lymphocyte Count 0.51 X10^3/uL (0.83-4.51); Absolute Neutrophil Count 2.4 X10^3/uL (2.0-7.7); Basophil# 0.01 X10^3/uL; Basophil% 0.3 % (0-1); Hemoglobin 12.8 g/dL (13.0-16.5); Lymphocyte # 0.51 X10^3/ul (0.83-4.51); Mean Corp Hgb Conc 33.7 g/dL (32-36); Mean Corpuscular Hgb 28.8 pg (27.0-32.0); Mean Corpuscular Volume 85.4 fL (80-94); Monocyte# 0.24 X10^3/uL; Monocyte% 7.5 % (0-10); NRBC Flagged by Analyzer 0 % (0-5); Neutrophil # 2.38 X10^3/uL (2.7-7.7); Neutrophil % 74.9 % (47-70); POSITIVE DIFFERENTIAL YES; POSITIVE MORPHOLOGY YES; Platelet Count 133 K/mm3 (150-450); RBC Distribution Width CV 14.9 % (11.6-14.6); RBC Distribution Width SD 46.5 fl (35.1-43.9); Red Blood Count 4.45 M/mm3 (4.6-6.2); White Blood Count 3.2 K/mm3 (4.4-11.0)
[2021-01-25 07:16] LABS: Differential Indicated SCAN CRITERIA MET
[2021-01-25 07:40] LABS: ALB/GLOB Ratio 0.6 RATIO (0.9-2.4); AST(SGOT) 46 U/L (15-37); Alanine Aminotransfer ALT/SGPT 36 U/L (16-61); Albumin, Serum 2.4 g/dL (3.2-5.0); Alkaline Phosphatase 57 U/L (45-117); Anion Gap 9 (5-15); BUN 16 mg/dL (7-18); BUN/Creat Ratio 14.3 RATIO (10-20); Calcium,Total 8.7 mg/dL (8.5-10.1); Chloride 107 mmol/L (98-107); Creatinine, Serum 1.12 mg/dL (0.70-1.30); EST Glomerular Filtration Rate 69 mL/min (>60); Est Glom Filt Rate - Afr Amer 84 mL/min (>60); Estimated Creatinine Clearance 78.58 ml/min; Globulin 4.1 g/dL (2.2-4.2); Glucose 410 mg/dL (74-106); Potassium 4.8 mmol/L (3.5-5.1); Protein, Total 6.5 g/dL (6.4-8.2); Sodium Level 136 mmol/L (136-145)
[2021-01-25 08:33] LABS: Reactive Lymphocyte RARE
--- NOTE | 2021-01-25 08:49 | CASEMGMT ---
SW spoke with patient regarding his discharge plan. Patient said he does not know. HEATHER explained to him that the only local facility that is taking positive COVID patient's is [facility] in [place]. Patient immediately said he will go home. SW asked if he would like home health and he declined. SW let him know home health is covered by insurance and he understood. He wants to try it on his own first. HEATHER told him that if he changes his mind once he gets home he can contact his primary care office and they can order home health. He thanked HEATHER. Uzma Serrato PATIENT ASSISTANT JEREMI
[2021-01-25] MEDS: dexAMETHasone 4 MG Tablet 6 MG PO (09:44)
[2021-01-25] MEDS: Carvedilol 6.25 MG Tablet PO (09:44)
[2021-01-25] MEDS: Glucerna Shake 120 ML LIQUID PO ×3 (09:46→16:07)
--- NOTE | 2021-01-25 09:50 | PCM.DC.SUM ---
Providers Date of Admission: 01/22/21 Date of Discharge: 01/25/21 Primary Care Physician: Dr. Bulmaro Garcia MD Reason For Visit: COVID Diagnosis Discharge Diagnosis (1) FTT (failure to thrive) in adult: Status: Acute Code(s): R62.7 - Adult failure to thrive (2) COVID-19: Status: Acute Code(s): U07.1 - COVID-19 (3) Diarrhea: Status: Resolved Code(s): R19.7 - Diarrhea, unspecified Qualifiers: Diarrhea type: unspecified type Qualified Code(s): R19.7 - Diarrhea, unspecified (4) Dehydration: Status: Resolved Code(s): E86.0 - Dehydration (5) Debility: Status: Acute Code(s): R53.81 - Other malaise Medications at Discharge Home Medications atorvastatin 80 mg PO DAILY 10/05/13 nitroglycerin 0.4 mg SUBLINGUAL Q5M PRN #25 tab 10/14/13 albuterol sulfate 6.7 gm IH Q4H PRN PRN 07/22/16 hydroxyzine HCl 50 mg tablet 50 mg PO QHS tab 03/14/17 losartan 50 mg tablet 50 mg PO DAILY 02/01/18 rivaroxaban 15 mg tablet 20 mg PO DAILY tab 02/25/20 trazodone 50 mg tablet 50 mg PO QHS tab 02/25/20 Levocetirizine Dihydrochloride 5 mg PO QHS 05/31/20 carvedilol 6.25 mg PO BID 05/31/20 furosemide 40 mg PO DAILY 05/31/20 oxycodone-acetaminophen 1 tablet PO Q4H PRN 05/31/20 umeclidinium-vilanterol 1 puff PO DAILY 05/31/20 Victoza 3-Mychal 1.8 mg SUBCUT DAILY 01/22/21 dexamethasone 6 mg PO BREAKFAST 8 Days #12 tab 01/25/21 insulin glargine [Lantus Solostar U-100 Insulin] 80 units SUBCUT BID 30 Days #48 ml 01/25/21 insulin lispro [Humalog KwikPen Insulin] 40 unit SUBCUT TIDCM 30 Days #36 ml 01/25/21 loperamide 2 mg PO Q2H PRN PRN 3 Days #12 cap 01/25/21 Hospital Course Operations None Procedures None Summary of Care Provided Minutes Spent on Discharge: 45 Hospital Course: 65-year old male with past medical history of CAD status post CABG, type II DM who presented with progressive weakness and diarrhea ongoing since 12/21/20. Patient was found to have acute COVID-19 infection. He was admitted to the telemetry floor. He was started on IV fluids and dexamethasone. He also had acute kidney injury on CKD stage IIIa. Patient generally improved. Stool for C. difficile was negative. He was transiently on oxygen but came off it. Patient was seen by PT and OT and skilled for discharge to intermediate facility. ER via did not want to go to the facility accepting Covid patients. He chose to go home. There were issues with blood sugars on account of the steroids. Changes were made to his insulin. Patient declined home health. Patient was discharged to follow-up with his primary care doctor within 1 to 2 weeks. He will complete 20-day quarantine. He was discharged to complete 10 days of dexamethasone. Physical Exam Narrative Physical exam: General: Alert, oriented x3, Cooperative, no apparent distress, appears very frail HEENT: Atraumatic Oral: Moist Mucosa Neck: Supple Lungs: Diminished to auscultation Cardiovascular: HS I+II, regular, no murmurs Abdomen: Bowel Sounds Present, Soft, Non Tender Extremities: No edema Weight / BMI Weight Weight: 112.854 kg Body Mass Index (BMI) 30.2 ABG / Lab / Microbiology Data Result Diagrams: 01/25/21 06:20 01/25/21 06:20 Laboratory: Laboratory Results - last 24 hr 01/24/21 06:58: Magnesium 1.9 01/24/21 12:17: POC Glucose 303 H 01/24/21 17:19: POC Glucose 194 H 01/24/21 20:14: POC Glucose 213 H 01/25/21 06:20: WBC 3.2 L, RBC 4.45 L, Hgb 12.8 L, Hct 38.0 L, MCV 85.4, MCH 28.8, MCHC 33.7, RDW Std Deviation 46.5 H, RDW Coeff of [place] 14.9 H, Plt Count 133 L, MPV 12.0, Immature Gran % (Auto) 1.300 H, Neut % (Auto) 74.9 H, Lymph % (Auto) 16.0 L, [place] % (Auto) 7.5, Eos % (Auto) 0.0, Baso % (Auto) 0.3, Absolute Neuts (auto) 2.4, Absolute Lymphs (auto) 0.51 L, Nucleated RBC % 0, Differential Comment COMMENT, Diff Path Review May foll, Reactive Lymphocytes RARE 01/25/21 06:20: Sodium 136, Potassium 4.8, Chloride 107, Carbon Dioxide 20.0 L, Anion Gap 9, BUN 16, Creatinine 1.12, Estim Creat Clear Calc 78.58, Est GFR (MDRD) Af Amer 84, Est GFR (MDRD) Non-Af 69, BUN/Creatinine Ratio 14.3, Glucose 410 H, Calcium 8.7, Total Bilirubin 0.70, AST 46 H, ALT 36, Alkaline Phosphatase 57, Total Protein 6.5, Albumin 2.4 L, Globulin 4.1, Albumin/Globulin Ratio 0.6 L Microbiology: Microbiology 01/22/21 20:52 Sputum, Expectorated/Coughed Gram Stain - Final 01/22/21 20:52 Sputum, Expectorated/Coughed Respiratory Culture - Final Mixed normal respiratory tonya. No Streptococcus pneumoniae, beta-hemolytic Streptococcus or Staphylococcus aureus isolated. 01/22/21 20:52 Urine, Clean Catch Legionella Antigen - Final 01/22/21 20:52 Urine, Clean Catch Streptococcus pneumoniae Antigen (M - Final 01/22/21 01:50 Stool C. difficile DNA Amplification - Final 01/22/21 05:19 Mucosa - Nasopharyngeal Influenza Types A,B Direct FA (BAYLEE) - Final 01/22/21 01:50 Stool Enteric Bacteriology - Final D/C Instructions Discharge Diet: Low fat / Low cholesterol, 2000 mg Sodium Diet and Carb Control Diet Meaningful Use Info Meaningful Use Diagnoses (Choose all that apply): None applicable Discharge Plan Admission Admit Date/Time: 01/22/21 11:00 Primary Reason for Your Visit: Acute hypoxic respiratory failure/acute COVID-19 pneumonia Attending Provider: Sandra Jacques Primary Care Provider: Bulmaro Garcia Instructions Patient Instructions: Coronavirus Disease 2019 (COVID-19): Caring for Yourself or Others, Preventing the Spread of Infection Understanding Isolation Procedures Additional Instructions / Restrictions: Continue to quarantine for total of 20 days. Wear your mask when you go out. Complete your Decadron Continue to monitor your blood glucose closely. Follow-up with your primary care doctor for changes to your insulin levels in accordance with your blood glucose levels. Discharge Orders/Prescriptions Prescriptions: New insulin lispro [Humalog KwikPen Insulin] 100 unit/mL Insulin Pen 40 unit subcut TIDCM 30 Days Qty: 36 RF: 0 loperamide 2 mg Capsule 2 mg PO Q2H PRN PRN (Reason: diarrhea) 3 Days Qty: 12 RF: 0 dexamethasone 4 mg Tablet 6 mg PO BREAKFAST 8 Days Qty: 12 RF: 0 Lantus Solostar U-100 Insulin 100 unit/mL (3 mL) Insulin Pen 80 units subcut BID 30 Days Qty: 48 RF: 0 Continued hydroxyzine HCl 50 mg tablet 50 mg PO QHS RF: 0 losartan 50 mg tablet 50 mg PO DAILY RF: 0 Xarelto 15 mg tablet 20 mg PO DAILY RF: 0 atorvastatin 80 MG tablet 80 mg PO DAILY RF: 0 nitroglycerin 0.4 MG tablet 0.4 mg sublingual Q5M PRN (Reason: Angina pain ) Qty: 25 RF: 0 trazodone 50 mg tablet 50 mg PO QHS RF: 0 albuterol sulfate 6.7 GM HFA aerosol inhaler 6.7 gm IH Q4H PRN PRN (Reason: COPD) RF: 0 umeclidinium-vilanterol 1 EACH blister with device 1 puff PO DAILY RF: 0 oxycodone-acetaminophen 1 TABLET tablet 1 tablet PO Q4H PRN (Reason: Pain Score 1-10) RF: 0 Levocetirizine Dihydrochloride 5 mg PO QHS RF: 0 furosemide 40 MG tablet 40 mg PO DAILY RF: 0 carvedilol 6.25 MG tablet 6.25 mg PO BID RF: 0 Victoza 3-Mychal 0.6 mg/0.1 mL (18 mg/3 mL) pen injector 1.8 mg SUBCUT DAILY RF: 0 Discontinued Victoza 1.8 mg SQ DAILY RF: 0 insulin aspart U-100 100 UNIT/ML solution 80 units SQ BIDCM RF: 0 Lantus U-100 Insulin 100 unit/mL Solution 80 unit SUBCUT BID RF: 0 Referrals / Follow Up: Bulmaro Garcia MD [Primary Care Provider] - 02/08/21 3:20 pm Disposition Disposition (needs filled in before D/C Order can be placed): Home, Self Care Charges/Coding Visit Charges Inpatient E&M: 13423 Disch Hosp
[2021-01-25] MEDS: Ceftriaxone 1 GM/50 ML BAG IV (09:53)
[2021-01-25] MEDS: Insulin Lispro 100 UNIT/ML INSULN.PEN 30 UNIT SC ×3 (10:01→16:07)
[2021-01-25 10:05] LABS: Bedside Glucose 462 mg/dL (70-110)
--- NOTE | 2021-01-25 11:18 | CASEMGMT ---
Pt does not qualify for home oxygen at this time and per Rebeca ROMERO, pt is declining SNF and HHC at this time. CM to follow for any further discharge planning/needs. Mary WEBER CM
[2021-01-25 11:20] LABS: Bedside Glucose > 500 mg/dL (70-110)
[2021-01-25] MEDS: Insulin Lispro 100 UNIT/ML INSULN.PEN 20 UNIT SC (11:39)
[2021-01-25 12:44] LABS: Pathologist Review Reviewed
[2021-01-25] MEDS: Rivaroxaban 20 MG Tablet PO (16:07)
[2021-01-25 16:16] LABS: Bedside Glucose 474 mg/dL (70-110)
== END 2021-01-25 17:57 | disposition home or self-care (01) | DRG 177 ==
LOC: ED 01-22 07:25 → PCU 01-22 07:45
PROVIDERS: Internal Medicine; Admitting Provider Internal Medicine; Emergency Provider Emergency Medicine; PCP Family Medicine; Visit Provider Internal Medicine
DX: U07.1 COVID-19 (principal); J12.82 Pneumonia due to coronavirus disease 2019; A08.39 Other viral enteritis; N17.9 Acute kidney failure, unspecified; J44.0 Chronic obstructive pulmonary disease with (acute) lower respiratory infection; E86.0 Dehydration; I12.9 Hypertensive chronic kidney disease with stage 1 through stage 4 chronic kidney disease, or unspecified chronic kidney disease; E11.22 Type 2 diabetes mellitus with diabetic chronic kidney disease; N18.31 Chronic kidney disease, stage 3a; I25.10 Atherosclerotic heart disease of native coronary artery without angina pectoris; E78.5 Hyperlipidemia, unspecified; R62.7 Adult failure to thrive; Z28.3 Underimmunization status; K58.9 Irritable bowel syndrome, unspecified; E66.9 Obesity, unspecified; Z68.30 Body mass index [BMI] 30.0-30.9, adult; Z95.1 Presence of aortocoronary bypass graft; Z95.810 Presence of automatic (implantable) cardiac defibrillator; E11.51 Type 2 diabetes mellitus with diabetic peripheral angiopathy without gangrene; I25.9 Chronic ischemic heart disease, unspecified; I25.2 Old myocardial infarction; Z68.31 Body mass index [BMI] 31.0-31.9, adult; Z79.01 Long term (current) use of anticoagulants; Z79.4 Long term (current) use of insulin; Z82.49 Family history of ischemic heart disease and other diseases of the circulatory system; Z83.3 Family history of diabetes mellitus; Z95.5 Presence of coronary angioplasty implant and graft; Z87.891 Personal history of nicotine dependence; R29.6 Repeated falls; Z86.711 Personal history of pulmonary embolism; Z86.718 Personal history of other venous thrombosis and embolism; Z66 Do not resuscitate
CPT/HCPCS: 36415; 71045; 74177; 80048; 80053; 80076; 82550; 82947; 82962; 83605; 83615; 83735; 84145; 84484; 85025; 85379; 85384; 87070; 87205; 87449; 87493; 87506; 87635; 87804; 94640; 97162; 97165; 97530; 99251; 99285; 99406; J7030; J7040; Q9967; U0005; A4216; G0463; U0003

== ENCOUNTER → 2021-06-27 | Outpatient (CLI) | payer MEDICARE, MEDICAID, SELFPAY ==
[2021-06-27 18:02] LABS: Absolute Lymphocyte Count 2.58 X10^3/uL (0.83-4.51); Absolute Neutrophil Count 5.2 X10^3/uL (2.0-7.7); Basophil# 0.05 X10^3/uL; Basophil% 0.6 % (0-1); Eosinophil# 0.14 X10^3/uL; Eosinophils% 1.6 % (0-5); Hematocrit 45.5 % (40-54); Lymphocyte # 2.58 X10^3/ul (0.83-4.51); Lymphocyte % 29.3 % (19-41); Mean Corpuscular Hgb 29.4 pg (27.0-32.0); Mean Corpuscular Volume 89.2 fL (80-94); Mean Platelet Vol. 11.9 fl (6.2-12.0); Monocyte# 0.88 X10^3/uL; NRBC Flagged by Analyzer 0 % (0-5); Neutrophil # 5.15 X10^3/uL (2.7-7.7); Neutrophil % 58.3 % (47-70); Platelet Count 173 K/mm3 (150-450); RBC Distribution Width CV 14.6 % (11.6-14.6); RBC Distribution Width SD 46.7 fl (35.1-43.9); White Blood Count 8.8 K/mm3 (4.4-11.0)
[2021-06-27 18:26] LABS: ALB/GLOB Ratio 1.1 RATIO (0.9-2.4); AST(SGOT) 22 U/L (15-37); Alanine Aminotransfer ALT/SGPT 31 U/L (16-61); Albumin, Serum 3.9 g/dL (3.2-5.0); Alkaline Phosphatase 72 U/L (45-117); Anion Gap 10 (5-15); BUN 28 mg/dL (7-18); BUN/Creat Ratio 19.6 RATIO (10-20); Calcium,Total 9.6 mg/dL (8.5-10.1); Chloride 97 mmol/L (98-107); Creatinine, Serum 1.43 mg/dL (0.70-1.30); EST Glomerular Filtration Rate 52 mL/min (>60); Est Glom Filt Rate - Afr Amer 63 mL/min (>60); Globulin 3.6 g/dL (2.2-4.2); Glucose 263 mg/dL (74-106); Magnesium 2.4 mg/dL (1.6-2.6); Potassium 4.6 mmol/L (3.5-5.1); Protein, Total 7.5 g/dL (6.4-8.2); Sodium Level 134 mmol/L (136-145)
[2021-06-27 19:05] LABS: Hemoglobin A1c 8.1 % (3.8-5.6)
== END | disposition home or self-care (01) ==
LOC: MFPLAB 14:52
PROVIDERS: PCP Family Medicine; Visit Provider Family Medicine
DX: E11.40 Type 2 diabetes mellitus with diabetic neuropathy, unspecified (principal)
CPT/HCPCS: 36415; 80053; 83036; 83735; 85025

== ENCOUNTER 2021-09-17 18:09 | Emergency (ER) | payer MEDICARE, SELFPAY ==
[2021-09-17 18:10] VITALS: BP 138/79; PULSE 82; RESP 16; TEMP 36.8; O2SAT 96; BMI 30.4
--- NOTE | 2021-09-17 18:36 | EDS_ITS ---
HPI HPI - GI History of Present Illness Chief Complaint: Constipation Informant: patient Abdominal Pain/Flank Pain Onset: Days Context: Gradual Onset Timing: Continuous Current Severity: Mild Maximum Severity: Mild Worsened by: Nothing Relieved by: Nothing Nausea/Vomiting/Emesis GI Symptom: Negative for Nausea or Vomiting Diarrhea/Melena/Hematochezia GI Symptom: Negative for Diarrhea, Melena or Hematochezia Associated Symptoms Associated Symptoms: Negative for Dysuria, Frequency or Hematuria Narrative Narrative: 66-year-old male with extensive past medical history CAD with stents, COPD, chronic kidney disease, irritable bowel, diabetes, pulmonary emboli. He is on chronic anticoagulation Xarelto. Patient had a history of intermittent constipation the last 2 years. He has not had any significant bowel movement for last 8 days. He denies nausea or vomiting. No pain. No dysuria. No f ever. He has done milk of magnesia and suppository without relief. He said normally in the past he has used magnesium citrate he went to store to get some and they told him there is have been recalled so I could not get any. 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) Pulmonary embolism (09/2013) Secondary pulmonary arterial hypertension Type 2 diabetes mellitus Home Medications atorvastatin 80 mg tablet 80 mg PO DAILY cholesterol 10/05/13 [History Last Taken 01/21/21] nitroglycerin 0.4 mg sublingual tablet 0.4 mg sublingual Q5M PRN Angina pain #25 tabs 10/14/13 [Rx Last Taken Unknown] albuterol sulfate 90 mcg/actuation aerosol inhaler 6.7 gm IH Q4H PRN PRN COPD 07/22/16 [History Last Taken 05/31/20] hydroxyzine HCl 50 mg tablet 50 mg PO QHS sleep 03/14/17 [History Last Taken 01/21/21] losartan 50 mg tablet 50 mg PO DAILY blood pressure 02/01/18 [History Last Taken 01/21/21] rivaroxaban 15 mg tablet (Xarelto) 20 mg PO DAILY clots 02/25/20 [History Last Taken 01/21/21] trazodone 50 mg tablet 50 mg PO QHS sleep 02/25/20 [History Last Taken 01/21/21] Levocetirizine Dihydrochloride 5 mg PO QHS sleep 05/31/20 [History Last Taken 01/21/21] carvedilol 6.25 mg tablet 6.25 mg PO BID blood pressure 05/31/20 [History Last Taken 01/21/21] furosemide 40 mg tablet 40 mg PO DAILY diuretic 05/31/20 [History Last Taken 01/21/21] oxycodone-acetaminophen 5 mg-325 mg tablet 1 tablet PO Q4H PRN Pain Score 1-10 05/31/20 [History Last Taken 05/31/20] umeclidinium 62.5 mcg-vilanterol 25 mcg/actuation powdr for inhalation 1 puff PO DAILY COPD 05/31/20 [History Last Taken 01/21/21] liraglutide 0.6 mg/0.1 mL (18 mg/3 mL) subcutaneous pen injector (Victoza 3-Mychal) 1.8 mg subcut DAILY diabetes 01/22/21 [History Last Taken 01/21/21] dexamethasone 4 mg tablet 6 mg PO BREAKFAST 8 days #12 tabs 01/25/21 [Rx Last Taken Unknown] insulin glargine 100 unit/mL (3 mL) subcutaneous pen (Lantus Solostar U-100 Insulin) 80 units (0.8 mL) subcut BID 30 days #48 mL 01/25/21 [Rx Last Taken Unknown] insulin lispro 100 unit/mL subcutaneous pen (Humalog KwikPen (U-100) Insulin) 40 unit (0.4 mL) subcut TIDCM 30 days #36 mL 01/25/21 [Rx Last Taken Unknown] loperamide 2 mg capsule 2 mg PO Q2H PRN PRN diarrhea 3 days #12 caps 01/25/21 [Rx Last Taken Unknown] Allergy/AdvReac Type Severity Reaction Status Date / Time No Known Allergies Allergy Verified 09/17/21 18:12 Family History Father CAD (coronary artery disease) Diabetes Brother CAD (coronary artery disease) Diabetes Mother Cancer Leukemia Brother Diabetes Surgical History H/O coronary artery bypass surgery (04/18/99) History of coronary artery stent placement (02/27/05) History of implantable cardiac defibrillator (ICD) (02/07/18) History of left heart catheterization (10/13/13) Hx of cataract extraction Social History Smoking Status: Former smoker pack-years: 39 second hand exposure: No alcohol intake: never substance use type: does not use caffeine: Yes (1/day) what type of physical activity do you participate in: none ROS ROS ED ROS Narrative Constipation. No abdominal pain. No fever. No vomiting. Review of Systems ROS Unobtainable: Denies due to encephalopathy Constitutional Constitutional ED: Denies chills ENT ENT ED: Denies ear pain Cardiovascular Cardiovascular: Denies chest pain Respiratory/Chest Respiratory/Chest: Denies cough Gastrointestinal Gastrointestinal: Reports constipation; Denies abdominal pain, diarrhea, melena or nausea Genitourinary Genitourinary ED: Denies dysuria Musculoskeletal Musculoskeletal: Denies arthralgias Integumentary Denies abscess Neurologic Neurologic: Denies headache(s) Psychiatric Psychiatric: Denies anxiety Endocrine Endocrinology: Denies polydipsia Hematologic/Lymphatic Hematologic/Lymphatic: Denies easy bleeding Allergic/Immunologic Allergic/Immunologic ED: Denies mouth swelling EXAM Physical Exam Narrative Exam Narrative: 58-year-old male no acute distress. Vital signs stable afebrile. Lungs are clear. Heart regular rhythm. Abdomen soft nondistended normal bowel sounds no peritoneal signs. No hernia or mass. No obstruction. Moving all 4 extremities. Nontender no edema. Neurologically is awake and alert. Const Vital Signs: 09/17/21 18:10 Temperature 98.2 F Temperature Source Temporal Pulse Rate 82 Respiratory Rate 16 Blood Pressure 138/79 H Blood Pressure Mean 98 Pulse Ox 96 Oxygen Delivery Method Room Air Positive well nourished, well developed and obese; Negative for cachectic, contractures or unkempt General Appearance ED: well developed; Negative for unkempt, cachectic, contractures or pallor Nutritional Appearance: obese; Negative for cachectic HEENT Reports moist mucous membranes normocephalic and atraumatic; Negative for trauma or tenderness Eyes PERRL and EOMs intact bilaterally General Eye ED: Negative for pale conjunctiva or scleral icterus Neck no lymphadenopathy, supple and no JVD General: Negative for tenderness Carotids: Negative for other Lymph Lymphatic: Negative for other Resp normal respiratory effort and clear to auscultation bilaterally Effort and Inspection: Negative for respiratory distress Auscultation: Negative for rales, rhonchi or wheezes Cardio regular rate, regular rhythm, S1 normal heart sound, S2 normal heart sound and no murmurs Rate: Negative for bradycardia Rhythm: Negative for abnormal rhythm GI non-tender, non-distended and no masses Inspection: Negative for abdominal distention Auscultation: normoactive bowel sounds Palpation: soft; Negative for tender, guarding, rigid, hernia, mass or pulsatile mass Back/Spine no CVA tenderness General Back: Negative for CVA tenderness Cervical Spine: Negative for cervical spine tenderness Thoracic Spine / Upper Back: Negative for thoracic spinal tenderness Lumbar Spine / Lower Back: Negative for lumbar spinal tenderness Coccyx: Negative for other Extremity full ROM General Extremety ED: Negative for edema or tenderness General Extremity: Negative for edema Neuro CN's II-XII intact bilaterally and moves all extremities Sensorium / Orientation: alert, oriented to person, oriented to place and oriented to time; Negative for orientation impaired, confused, lethargic or stuporous Motor Exam: strength 5/5 throughout Psych Appearance: Negative for unkempt Skin no wounds General Skin Exam: Negative for jaundice or pallor Rashes: no rashes MDM MDM MDM Narrative Medical decision making narrative: 66-year-old male with constipation. KUB being obtained. He will be discharged home with magnesium citrate. We did look it up there was a recall on magnesium citrate but it did not have a certain particular flavor. Repeat exam patient is doing well. He will be given magnesium citrate to take at home. Drink the first bottle if no bowel movement several hours drink the second. Return if worse. Follow-up with his doctor if not improving. Radiography Diagnostic Testing: KUB, single view, interpreted by myself shows increased stool load. Consistent with constipation. No bowel obstruction. No free air. Discharge Plan Triage Chief Complaint: Constipation ED Provider: Hayden Grace Dx/Rx/DC Orders Clinical Impression: Constipation, History of coronary artery disease, History of COPD, History of diabetes mellitus Instructions: ED Constipation (Adult) Prescriptions: No Action hydroxyzine HCl 50 mg tablet 50 mg PO QHS losartan 50 mg tablet 50 mg PO DAILY Xarelto 15 mg tablet 20 mg PO DAILY atorvastatin 80 MG tablet 80 mg PO DAILY Label Comments: LOWERS CHOLESTEROL nitroglycerin 0.4 MG tablet 0.4 mg sublingual Q5M PRN (Reason: Angina pain ) Qty: 25 0RF Label Comments: chest pain trazodone 50 mg tablet 50 mg PO QHS albuterol sulfate 6.7 GM HFA aerosol inhaler 6.7 gm IH Q4H PRN PRN (Reason: COPD) umeclidinium-vilanterol 1 EACH blister with device 1 puff PO DAILY Label Comments: inhale 1 (ONE) puff BY MOUTH EVERY DAY oxycodone-acetaminophen 1 TABLET tablet 1 tablet PO Q4H PRN (Reason: Pain Score 1-10) Levocetirizine Dihydrochloride 5 mg PO QHS furosemide 40 MG tablet 40 mg PO DAILY Label Comments: diuretic carvedilol 6.25 MG tablet 6.25 mg PO BID Victoza 3-Mychal 0.6 mg/0.1 mL (18 mg/3 mL) pen injector 1.8 mg SUBCUT DAILY Label Comments: INJECT 1.8 mg SUBCUTANEOUSLY ONCE DAILY. insulin lispro [Humalog KwikPen Insulin] 100 unit/mL Insulin Pen 40 unit subcut TIDCM 30 Days Qty: 36 0RF loperamide 2 mg Capsule 2 mg PO Q2H PRN PRN (Reason: diarrhea) 3 Days Qty: 12 0RF dexamethasone 4 mg Tablet 6 mg PO BREAKFAST 8 Days Qty: 12 0RF Lantus Solostar U-100 Insulin 100 unit/mL (3 mL) Insulin Pen 80 units subcut BID 30 Days Qty: 48 0RF Primary Care Provider: Bulmaro Garcia Referrals: Bulmaro Garcia MD [Primary Care Provider] - 3-5 Days if not improving Activity Restrictions/Additional Instructions: Plenty of fluids, fruits, vegetables and fiber. Use the first bottle of magnesium citrate. Drink the whole thing. If no bowel movement in 4 to 6 hours drink the second. Follow-up with your doctor as needed. Disposition Disposition: Home, Self Care
--- NOTE | 2021-09-17 18:45 | RAD_ITS ---
STUDY: X-RAY - ABDOMEN/PELVIS REASON FOR EXAM: Male, 66 years old. constipation TECHNIQUE: KUB COMPARISON: None. FINDINGS: Lung bases are clear. There is a non-obstructive bowel gas pattern. There is no organomegaly. No abnormal calcifications. Prior cholecystectomy. Soft tissues and bony structures are unremarkable. RAD/Abdomen Single View IMPRESSION: Normal x-ray examination of the abdomen and pelvis. Electronically Signed: Claudia Plummer MD at 19:58 EDT Reading Location ID and State: [id number] / Tel , Service support ,
[2021-09-17] MEDS: Magnesium Citrate 300 ML PO (19:39)
== END 2021-09-17 19:41 | disposition home or self-care (01) ==
PROVIDERS: Emergency Provider Emergency Medicine; PCP Family Medicine; Visit Provider Emergency Medicine
DX: K59.00 Constipation, unspecified (principal); I25.10 Atherosclerotic heart disease of native coronary artery without angina pectoris; I25.2 Old myocardial infarction; E66.9 Obesity, unspecified; Z79.01 Long term (current) use of anticoagulants; Z86.711 Personal history of pulmonary embolism; Z95.5 Presence of coronary angioplasty implant and graft; Z87.891 Personal history of nicotine dependence
CPT/HCPCS: 74018; 99283

== ENCOUNTER → 2021-12-14 | Outpatient (CLI) | payer MEDICARE, SELFPAY ==
--- NOTE | 2021-12-14 17:11 | RAD_ITS ---
STUDY: XR Knee 3 Views 12/14/2021 5:40 PM REASON FOR EXAM: Male, 66 years old. PAIN TECHNIQUE: XR Knee 3 Views RIGHT COMPARISON: None FINDINGS: Normal visualized distal femur. Normal visualized proximal tibia and fibula. Normal proximal tibiofibular articulation. Normal medial femorotibial compartment. Normal lateral femorotibial compartment. Normal patellofemoral articulation. There is a soft tissue prominence in the suprapatellar region suggesting a small volume joint effusion. There are atherosclerotic calcifications. RAD/Knee 3 Views IMPRESSION: Effusion, as described above. Electronically Signed: David Landrum MD at 17:41 EDT ,
== END | disposition home or self-care (01) ==
PROVIDERS: PCP Family Medicine; Referring Provider Nurse Practitioner Family; Visit Provider Nurse Practitioner Family
DX: M25.561 Pain in right knee (principal)
CPT/HCPCS: 73562

== ENCOUNTER → 2021-12-16 | Outpatient (CLI) | payer MEDICARE, SELFPAY ==
[2021-12-16 12:40] LABS: Pathologist Comment May follow
[2021-12-16 13:48] LABS: Synovial Fld Mononuclear WBC # 0.187 10^3/ul; Synovial Fld Mononuclear WBC % 54.2 %; Synovial Fld Polynuclear WBC # 0.158 10^3/uL; Synovial Fld Polynuclear WBC % 45.8 %
[2021-12-16 13:50] LABS: RBC /Synovial Fluid 0.003 10^6/uL (0)
[2021-12-16 14:09] LABS: AUTO B FLUID DILUENT BKGD CT WBC <0.1 RBC <0.01 (W<.1,R<.01)
[2021-12-16 14:10] LABS: CRYSTALS, BODY FLUID MONOSODIUM URATE; Source- Body Fluid SYNOVIAL
[2021-12-16 14:11] LABS: Source / Synovial Fluid RIGHT KNEE; Viscosity / Synovial Fluid Mod. Viscous (HIGH)
[2021-12-16 14:13] LABS: Appearance /Synovial Fluid Hazy (CLEAR); Color / Synovial Fluid Yellow (Pale Yellow)
[2021-12-16 14:48] LABS: Lymph 13 %; Monocyte /Synovial Fluid 8 %; Neutrophil 55 % (0-25); Other Cell /Synovial Fluid 24 %
[2021-12-16 14:53] LABS: Body Fluid QC Type(s) BF4Q,BF5Q
[2021-12-17 14:15] LABS: GLUCOSE, SYNOVIAL FLUID 125 mg/dL (.); PROTEIN, SYNOVIAL FLUID 2.7 g/dL (.)
[2021-12-19 11:56] LABS: Pathologist Review Reviewed
== END | disposition home or self-care (01) ==
LOC: LABSPEC 12:36
PROVIDERS: PCP Family Medicine; Referring Provider Orthopaedic Surgery Sports Medicine; Visit Provider Orthopaedic Surgery Sports Medicine
DX: M11.261 Other chondrocalcinosis, right knee (principal); M25.461 Effusion, right knee
CPT/HCPCS: 82945; 84157; 87070; 87075; 87205; 89050; 89051; 89060

== ENCOUNTER 2021-12-31 04:42 | Emergency (ER) | payer MEDICARE, SELFPAY ==
[2021-12-31 04:45] VITALS: BP 159/72; PULSE 71; RESP 17; TEMP 35.6; O2SAT 99; BMI 32.4
[2021-12-31 04:48] VITALS: BP 159/72; PULSE 68; RESP 14; TEMP 35.6; O2SAT 100
--- NOTE | 2021-12-31 05:07 | EKG12_ITS ---
Test Reason : CP Blood Pressure : / mmHG Vent. Rate : 067 BPM Atrial Rate : 067 BPM P-R Int : 224 ms QRS Dur : 110 ms QT Int : 446 ms P-R-T Axes : 044 085 -62 degrees QTc Int : 471 ms Sinus rhythm with sinus arrhythmia with 1st degree A-V block Possible Left atrial enlargement ST & T wave abnormality, consider inferior ischemia Prolonged QT Abnormal ECG Confirmed by ERNESTO OLIVA, PITA ([id number]), news editor VERONIKA THRUSTON ([id number]) on 01/03/2022 11:02:04 AM Referred By: SCOUT Confirmed By:PITA OROZCO MD
--- NOTE | 2021-12-31 05:07 | RAD_ITS ---
STUDY: X-RAY CHEST REASON FOR EXAM: Male, 66 years old. Chest pain. TECHNIQUE: PA and lateral COMPARISON: 01/22/2021 CXR FINDINGS: LUNGS: No evidence of pneumonia, pulmonary edema, pneumothorax or pleural effusion. Mildly lucent and hyperinflated lungs. MEDIASTINUM, ELSI: Cardiac silhouette, hilar and mediastinal contours with no acute findings. Heart size within normal limits. Sternotomy wires and implanted cardiac device left chest with a single intact lead extending in the right ventricle again demonstrated. BONES: Degenerative osseous changes with no acute osseous abnormality. UPPER ABDOMEN: Not well evaluated on this view. RAD/Chest PA and Lateral IMPRESSION: No acute findings. Underlying COPD/emphysema. Electronically Signed: Jose Townsend MD at 5:47 EST Reading Location ID and State: [facility] / [place] Tel , Service support ,
[2021-12-31 05:21] VITALS: BP 133/67; PULSE 68; RESP 14; O2SAT 96
[2021-12-31 05:23] LABS: Absolute Lymphocyte Count 3.05 X10^3/uL (0.83-4.51); Absolute Neutrophil Count 5.8 X10^3/uL (2.0-7.7); Basophil# 0.06 X10^3/uL; Basophil% 0.6 % (0-1); Eosinophil# 0.41 X10^3/uL; Eosinophils% 3.9 % (0-5); Hematocrit 46.6 % (40-54); Hemoglobin 15.2 g/dL (13.0-16.5); Lymphocyte # 3.05 X10^3/ul (0.83-4.51); Lymphocyte % 28.9 % (19-41); Mean Corp Hgb Conc 32.6 g/dL (32-36); Mean Corpuscular Hgb 29.2 pg (27.0-32.0); Mean Corpuscular Volume 89.4 fL (80-94); Mean Platelet Vol. 10.3 fl (6.2-12.0); Monocyte# 1.19 X10^3/uL; Monocyte% 11.3 % (0-10); NRBC Flagged by Analyzer 0 % (0-5); Neutrophil # 5.79 X10^3/uL (2.7-7.7); Neutrophil % 54.7 % (47-70); Platelet Count 169 K/mm3 (150-450); RBC Distribution Width CV 14.8 % (11.6-14.6); RBC Distribution Width SD 48.6 fl (35.1-43.9); Red Blood Count 5.21 M/mm3 (4.6-6.2); White Blood Count 10.6 K/mm3 (4.4-11.0)
--- NOTE | 2021-12-31 05:27 | EX.ED.DYSGE1 ---
HPI History of Present Illness Chief Complaint: Chest Pain Narrative Narrative: Patient is a 66-year-old male with past medical history of ischemic cardiomyopathy hypertension hyperlipidemia and CAD requiring stent placement in 2005 and bypass in 1999. He also is a history of DVT/PE and is currently on Eliquis. He states he awoke this morning around 345 and noticed midsternal chest discomfort. He states it felt more like a tightness. He states there is no radiation of the pain and he denies any associated nausea vomiting diaphoresis or shortness of breath. He reports because of his severe cardiac history he does have nitro at home and took 2 of these pills with resolution of symptoms. He states however because of his medical history he was concerned that something further could be going on and decided come to the hospital for evaluation [facility] Medical History Atherosclerosis of [place] coronary artery of [place] heart without angina pectoris Chronic kidney disease Claudication Constipation COPD (chronic obstructive pulmonary disease) DVT (deep venous thrombosis) Effusion, right knee Essential (primary) hypertension Gout of right knee History of non-ST elevation myocardial infarction (NSTEMI) (10/11/13) Hyperlipidemia IBS (irritable bowel syndrome) Ischemic cardiomyopathy NSVT (nonsustained ventricular tachycardia) Obesity Old inferior wall myocardial infarction (02/27/05) Pseudogout of right knee Pulmonary embolism (09/2013) Right knee pain Secondary pulmonary arterial hypertension Type 2 diabetes mellitus Home Medications atorvastatin 80 mg tablet 80 mg PO DAILY cholesterol 10/05/13 [History Last Taken 01/21/21] nitroglycerin 0.4 mg sublingual tablet 0.4 mg sublingual Q5M PRN Angina pain #25 tabs 10/14/13 [Rx Last Taken Unknown] albuterol sulfate 90 mcg/actuation aerosol inhaler 6.7 g IH Q4H PRN PRN COPD 07/22/16 [History Last Taken 05/31/20] hydroxyzine HCl 50 mg tablet 50 mg PO QHS sleep 03/14/17 [History Last Taken 01/21/21] losartan 50 mg tablet 50 mg PO DAILY blood pressure 02/01/18 [History Last Taken 01/21/21] rivaroxaban 15 mg tablet (Xarelto) 20 mg PO DAILY clots 02/25/20 [History Last Taken 01/21/21] trazodone 50 mg tablet 50 mg PO QHS sleep 02/25/20 [History Last Taken 01/21/21] Levocetirizine Dihydrochloride 5 mg PO QHS sleep 05/31/20 [History Last Taken 01/21/21] carvedilol 6.25 mg tablet 6.25 mg PO BID blood pressure 05/31/20 [History Last Taken 01/21/21] furosemide 40 mg tablet 40 mg PO DAILY diuretic 05/31/20 [History Last Taken 01/21/21] oxycodone-acetaminophen 5 mg-325 mg tablet 1 tablet PO Q4H PRN Pain Score 1-10 05/31/20 [History Last Taken 05/31/20] umeclidinium 62.5 mcg-vilanterol 25 mcg/actuation powdr for inhalation 1 puff PO DAILY COPD 05/31/20 [History Last Taken 01/21/21] liraglutide 0.6 mg/0.1 mL (18 mg/3 mL) subcutaneous pen injector (Victoza 3-Mychal) 1.8 mg subcut DAILY diabetes 01/22/21 [History Last Taken 01/21/21] insulin glargine 100 unit/mL (3 mL) subcutaneous pen (Lantus Solostar U-100 Insulin) 80 units (0.8 mL) subcut BID 30 days #48 mL 01/25/21 [Rx Last Taken Unknown] insulin lispro 100 unit/mL subcutaneous pen (Humalog KwikPen (U-100) Insulin) 80 unit subcut TIDCM 12/31/21 [History Last Taken Unknown] Allergy/AdvReac Type Severity Reaction Status Date / Time No Known Allergies Allergy Verified 12/19/21 14:53 Family History Father CAD (coronary artery disease) Diabetes Brother CAD (coronary artery disease) Diabetes Mother Cancer Leukemia Brother Diabetes Surgical History H/O coronary artery bypass surgery (04/18/99) History of coronary artery stent placement (02/27/05) History of implantable cardiac defibrillator (ICD) (02/07/18) History of left heart catheterization (10/13/13) Hx of cataract extraction Social History (Reviewed 12/19/21 @ 14:54 by Sarah Villanueva Smoking Status: Former smoker pack-years: 39 second hand exposure: No alcohol intake: never substance use type: does not use caffeine: Yes (1/day) what type of physical activity do you participate in: none ROS ROS ED Constitutional Constitutional ED: Denies chills or fever(s) ENT ENT ED: Denies sore throat Cardiovascular Cardiovascular: Reports chest pain; Denies palpitations or racing heartbeat Respiratory/Chest Respiratory/Chest: Denies cough or dyspnea Gastrointestinal Gastrointestinal: Denies abdominal pain, diarrhea, nausea or vomiting Genitourinary Genitourinary ED: Denies dysuria Musculoskeletal Musculoskeletal: Denies myalgias Integumentary Denies rash Neurologic Neurologic: Denies headache(s) Hematologic/Lymphatic Hematologic/Lymphatic: Reports easy bleeding and easy bruising EXAM Physical Exam Const Vital Signs: 12/31/21 04:45 12/31/21 04:48 12/31/21 05:21 Temperature 96.0 F L 96.0 F L Temperature Source Temporal Temporal Pulse Rate 71 68 68 Respiratory Rate 17 14 14 Blood Pressure 159/72 H 159/72 H 133/67 H Blood Pressure Mean 101 101 89 Pulse Ox 99 100 96 Oxygen Delivery Method Room Air Room Air Room Air Positive well nourished and well developed General Appearance ED: well developed HEENT Reports moist mucous membranes Eyes PERRL and EOMs intact bilaterally Neck supple and no JVD Chest Wall palpation of chest normal Resp normal respiratory effort and clear to auscultation bilaterally Resp Narrative: Breath sounds are slightly diminished throughout but overall clear to auscultation with no signs of respiratory distress Cardio regular rate and regular rhythm Rate: other Other Details: Radial pulses are plus 2 out of 4 bilaterally are equal and symmetric. Carotid pulses are equal and symmetric as well GI normal to inspection, nondistended, normoactive bowel sounds, non-tender and non-distended GI Narrative: No voluntary guarding or rigidity no pulsatile mass Auscultation: normoactive bowel sounds Palpation: soft Extremity normal to inspection Extremity Narrative: No asymmetric edema no pitting edema negative Homans' sign bilaterally Neuro oriented x3 and CN's II-XII intact bilaterally Sensorium / Orientation: alert Psych mental status grossly normal Skin no rashes or lesions noted MDM MDM MDM Narrative Medical decision making narrative: Patient presented to the ER slightly hypertensive but otherwise with stable vitals and had resolution of his chest pain. He is on Xarelto with his history of DVT/PE and states has been taking his medication as directed so I do not feel the need for CTA. Because of his significant cardiac risk factors I did elect to perform a basic cardiac work-up. Labs showed no clinically significant findings with a troponin in the normal value of 46. I discussed with patient that he should wait for a 2-hour delta as his EKG does show nonspecific ST segment flattening and he has multiple cardiac risk factor in order to ensure that the value is not elevating. He states that he has been pain-free since his arrival and he does not wish to stay in the hospital any longer especially as he is follow-up with his family doctor on Sunday. The patient's blood pressure has improved without any type of medication given in the ER. His pain has been resolved for his entire ER stay and his chest x-ray does not suggest any type of widened mediastinum to suggest dissection he is low risk for DVT/PE as he is on Xarelto and as his initial troponin is technically normal I will comply with the patient's wishes and discharge him at this time as his overall cardiac work-up is negative Lab Data Attestation: I reviewed the patient's lab results. Labs: Laboratory Results - last 24 hr 12/31/21 12/31/21 05:17 05:17 WBC 10.6 RBC 5.21 Hgb 15.2 Hct 46.6 MCV 89.4 MCH 29.2 MCHC 32.6 RDW Std Deviation 48.6 H RDW Coeff of Eula 14.8 H Plt Count 169 MPV 10.3 Immature Gran % (Auto) 0.600 Neut % (Auto) 54.7 Lymph % (Auto) 28.9 [place] % (Auto) 11.3 H Eos % (Auto) 3.9 Baso % (Auto) 0.6 Absolute Neuts (auto) 5.8 Absolute Lymphs (auto) 3.05 Nucleated RBC % 0 Sodium 139 Potassium 3.8 Chloride 101 Carbon Dioxide 31.0 Anion Gap 7 BUN 27 H Creatinine 1.25 Estim Creat Clear Calc 69.44 Est GFR (MDRD) Af Amer 74 Est GFR (MDRD) Non-Af 61 BUN/Creatinine Ratio 21.6 H Glucose 65 L Calcium 9.5 Magnesium 2.1 Troponin I High Sens 46 Radiography Diagnostic Testing: Clinical Impression(s) from Imaging Studies Chest X-Ray 12/31/21 05:07 IMPRESSION: No acute findings. Underlying COPD/emphysema. Electronically Signed: Jose Townsend MD at 5:47 EST Reading Location ID and State: [address] [place] [address] Tel , Service support , 2 view chest x-ray as interpreted by the emergency medicine physician reveals underlying COPD/emphysema changes without acute infiltrate pneumothorax pleural effusion or widening of the mediastinum Discharge Plan Triage Chief Complaint: Chest Pain ED Provider: Darryl Márquez Dx/Rx/DC Orders Clinical Impression: Nonspecific chest pain, History of implantable cardiac defibrillator (ICD), Essential (primary) hypertension, Type 2 diabetes mellitus Instructions: ED Chest Pain, Uncertain Cause Prescriptions: No Action hydroxyzine HCl 50 mg tablet 50 mg PO QHS losartan 50 mg tablet 50 mg PO DAILY Xarelto 15 mg tablet 20 mg PO DAILY atorvastatin 80 MG tablet 80 mg PO DAILY Label Comments: LOWERS CHOLESTEROL nitroglycerin 0.4 MG tablet 0.4 mg sublingual Q5M PRN (Reason: Angina pain ) Qty: 25 0RF Label Comments: chest pain trazodone 50 mg tablet 50 mg PO QHS albuterol sulfate 6.7 GM HFA aerosol inhaler 6.7 g IH Q4H PRN PRN (Reason: COPD) umeclidinium-vilanterol 1 EACH blister with device 1 puff PO DAILY Label Comments: inhale 1 (ONE) puff BY MOUTH EVERY DAY oxycodone-acetaminophen 1 TABLET tablet 1 tablet PO Q4H PRN (Reason: Pain Score 1-10) Levocetirizine Dihydrochloride 5 mg PO QHS furosemide 40 MG tablet 40 mg PO DAILY Label Comments: diuretic carvedilol 6.25 MG tablet 6.25 mg PO BID Victoza 3-Mychal 0.6 mg/0.1 mL (18 mg/3 mL) pen injector 1.8 mg SUBCUT DAILY Label Comments: INJECT 1.8 mg SUBCUTANEOUSLY ONCE DAILY. insulin glargine [Lantus Solostar U-100 Insulin] 100 unit/mL (3 mL) Insulin Pen 80 units subcut BID 30 Days Qty: 48 0RF insulin lispro [Humalog KwikPen Insulin] 100 unit/mL insulin pen 80 unit subcut TIDCM Primary Care Provider: Bulmaro Garcia Referrals: Bulmaro Garcia MD [Primary Care Provider] - Activity Restrictions/Additional Instructions: Please continue your medications as directed by your doctor and if you have any further concerns or worsening of symptoms please return to the ER for repeat evaluation Disposition Disposition: Home, Self Care
[2021-12-31 05:46] LABS: Anion Gap 7 (5-15); BUN 27 mg/dL (7-18); BUN/Creat Ratio 21.6 RATIO (10-20); Calcium,Total 9.5 mg/dL (8.5-10.1); Chloride 101 mmol/L (98-107); Creatinine, Serum 1.25 mg/dL (0.70-1.30); EST Glomerular Filtration Rate 61 mL/min (>60); Est Glom Filt Rate - Afr Amer 74 mL/min (>60); Estimated Creatinine Clearance 69.44 ml/min; Glucose 65 mg/dL (74-106); Magnesium 2.1 mg/dL (1.6-2.6); Potassium 3.8 mmol/L (3.5-5.1); Sodium Level 139 mmol/L (136-145); Troponin-I HS 46 pg/mL (3.0-78.0)
[2021-12-31 06:15] VITALS: BP 131/70; PULSE 69; RESP 22; O2SAT 95
[2021-12-31 06:21] VITALS: BP 131/70; PULSE 69; RESP 22; O2SAT 95
== END 2021-12-31 06:22 | disposition home or self-care (01) ==
PROVIDERS: Emergency Provider Emergency Medicine; PCP Family Medicine; Visit Provider Emergency Medicine
DX: R07.9 Chest pain, unspecified (principal); J44.9 Chronic obstructive pulmonary disease, unspecified; E11.22 Type 2 diabetes mellitus with diabetic chronic kidney disease; N18.9 Chronic kidney disease, unspecified; I12.9 Hypertensive chronic kidney disease with stage 1 through stage 4 chronic kidney disease, or unspecified chronic kidney disease; I25.10 Atherosclerotic heart disease of native coronary artery without angina pectoris; I25.5 Ischemic cardiomyopathy; Z87.891 Personal history of nicotine dependence; E78.5 Hyperlipidemia, unspecified; Z95.810 Presence of automatic (implantable) cardiac defibrillator; Z95.5 Presence of coronary angioplasty implant and graft; Z79.01 Long term (current) use of anticoagulants; Z86.718 Personal history of other venous thrombosis and embolism; I25.2 Old myocardial infarction
CPT/HCPCS: 71046; 80048; 83735; 84484; 85025; 93005; 96374; 99283; A4216

== ENCOUNTER 2022-01-02 22:17 | Emergency (ER) | payer MEDICARE, MEDICAID, SELFPAY ==
[2022-01-02 22:23] VITALS: BP 112/64; PULSE 109; RESP 22; TEMP 37.2; O2SAT 95; BMI 30.4
--- NOTE | 2022-01-02 23:02 | EDS_ITS ---
HPI History of Present Illness Chief Complaint: Nausea/Vomiting Informant: patient Onset/Context/Timing Onset: Today Timing: Intermittent Current Severity: Mild Maximum Severity: Mild Narrative Narrative: 66-year-old male history of CAD, SD, defibrillator, cardiomyopathy, COPD, DVT on Eliquis and diabetic. States just felt generally weak and nausea and vomiting today. Constipation for a week. He denies any fever. No dysuria. Said his blood sugars have been running well around 125. Prior similar symptoms: Yes Recent Illness/Hospitalization: No PFSH PFSH Medical History Atherosclerosis of [place] coronary artery of [place] heart without angina pectoris Chronic kidney disease Claudication Constipation COPD (chronic obstructive pulmonary disease) DVT (deep venous thrombosis) Effusion, right knee Essential (primary) hypertension Gout of right knee History of non-ST elevation myocardial infarction (NSTEMI) (10/11/13) Hyperlipidemia IBS (irritable bowel syndrome) Ischemic cardiomyopathy NSVT (nonsustained ventricular tachycardia) Obesity Old inferior wall myocardial infarction (02/27/05) Pseudogout of right knee Pulmonary embolism (09/2013) Right knee pain Secondary pulmonary arterial hypertension Type 2 diabetes mellitus Home Medications atorvastatin 80 mg tablet 80 mg PO DAILY cholesterol 10/05/13 [History Last Taken 01/21/21] nitroglycerin 0.4 mg sublingual tablet 0.4 mg sublingual Q5M PRN Angina pain #25 tabs 10/14/13 [Rx Last Taken Unknown] albuterol sulfate 90 mcg/actuation aerosol inhaler 6.7 g IH Q4H PRN PRN COPD 07/22/16 [History Last Taken 05/31/20] hydroxyzine HCl 50 mg tablet 50 mg PO QHS sleep 03/14/17 [History Last Taken 01/21/21] losartan 50 mg tablet 50 mg PO DAILY blood pressure 02/01/18 [History Last Taken 01/21/21] rivaroxaban 15 mg tablet (Xarelto) 20 mg PO DAILY clots 02/25/20 [History Last Taken 01/21/21] trazodone 50 mg tablet 50 mg PO QHS sleep 02/25/20 [History Last Taken 01/21/21] Levocetirizine Dihydrochloride 5 mg PO QHS sleep 05/31/20 [History Last Taken 01/21/21] carvedilol 6.25 mg tablet 6.25 mg PO BID blood pressure 05/31/20 [History Last Taken 01/21/21] furosemide 40 mg tablet 40 mg PO DAILY diuretic 05/31/20 [History Last Taken 01/21/21] oxycodone-acetaminophen 5 mg-325 mg tablet 1 tablet PO Q4H PRN Pain Score 1-10 05/31/20 [History Last Taken 05/31/20] umeclidinium 62.5 mcg-vilanterol 25 mcg/actuation powdr for inhalation 1 puff PO DAILY COPD 05/31/20 [History Last Taken 01/21/21] liraglutide 0.6 mg/0.1 mL (18 mg/3 mL) subcutaneous pen injector (Victoza 3-Mychal) 1.8 mg subcut DAILY diabetes 01/22/21 [History Last Taken 01/21/21] insulin glargine 100 unit/mL (3 mL) subcutaneous pen (Lantus Solostar U-100 Insulin) 80 units (0.8 mL) subcut BID 30 days #48 mL 01/25/21 [Rx Last Taken Unknown] insulin lispro 100 unit/mL subcutaneous pen (Humalog KwikPen (U-100) Insulin) 80 unit subcut TIDCM 12/31/21 [History Last Taken Unknown] ondansetron 4 mg disintegrating tablet 4 mg PO Q6H PRN nausea and vomiting #7 tabs 01/03/22 [Rx Last Taken Unknown] Allergy/AdvReac Type Severity Reaction Status Date / Time No Known Allergies Allergy Verified 01/02/22 22:23 Family History Father CAD (coronary artery disease) Diabetes Brother CAD (coronary artery disease) Diabetes Mother Cancer Leukemia Brother Diabetes Surgical History H/O coronary artery bypass surgery (04/18/99) History of coronary artery stent placement (02/27/05) History of implantable cardiac defibrillator (ICD) (02/07/18) History of left heart catheterization (10/13/13) Hx of cataract extraction Social History Smoking Status: Former smoker pack-years: 39 second hand exposure: No alcohol intake: never substance use type: does not use caffeine: Yes (1/day) what type of physical activity do you participate in: none ROS ROS ED ROS Narrative Nausea and vomiting. Generalized weakness. Review of Systems ROS Unobtainable: Denies due to encephalopathy Constitutional Constitutional ED: Denies chills or fever(s) Eyes Eyes: Denies blurry vision ENT ENT ED: Denies ear pain Cardiovascular Cardiovascular: Denies chest pain Respiratory/Chest Respiratory/Chest: Denies cough or dyspnea Gastrointestinal Gastrointestinal: Reports constipation, nausea and vomiting; Denies abdominal pain, diarrhea or melena Genitourinary Genitourinary ED: Denies dysuria or hematuria Musculoskeletal Musculoskeletal: Denies arthralgias Integumentary Denies abscess Neurologic Neurologic: Denies headache(s) Psychiatric Psychiatric: Denies anxiety Endocrine Endocrinology: Denies cold intolerance Hematologic/Lymphatic Hematologic/Lymphatic: Reports none Allergic/Immunologic Allergic/Immunologic ED: Denies mouth swelling or tongue swelling EXAM Physical Exam Narrative Exam Narrative: 14-year-old male no acute distress. Vital signs stable afebrile. Pulse ox 95% on room air no hypoxia. H EENT exam dry mucous membranes. Otherwise unremarkable. No facial droop. Normal speech. Atraumatic. Neck nontender. No lymphadenopathy. Lungs clear to auscultation bilaterally. Heart regular rhythm rate about 109 no murmur. Chest wall nontender. Abdomen soft nontender normal bowel sounds no peritoneal signs. No distention or obstruction. No pulsatile mass. Moving all 4 extremities. Nontender no edema. Neurologically is awake and alert. Answering questions and following commands. Const Vital Signs: 01/02/22 22:23 Temperature 99 F Temperature Source Temporal Pulse Rate 109 H Respiratory Rate 22 H Blood Pressure 112/64 Blood Pressure Mean 80 Pulse Ox 95 Oxygen Delivery Method Room Air Positive well nourished, well developed and obese; Negative for cachectic, contractures or unkempt General Appearance ED: well developed and NAD; Negative for unkempt, cachectic, contractures, cyanotic or diaphoretic Nutritional Appearance: obese; Negative for cachectic HEENT Reports dry mucous membranes; Denies moist mucous membranes Negative for trauma or tenderness Mouth ED: Yes dry mucous membranes Mouth: dry mucous membranes Eyes PERRL and EOMs intact bilaterally General Eye ED: Negative for pale conjunctiva or scleral icterus Neck no lymphadenopathy, supple and no JVD General: Negative for tenderness Lymph Lymphatic: Negative for other Chest Wall inspection of chest normal Chest: Negative for other Resp normal respiratory effort and clear to auscultation bilaterally Effort and Inspection: Negative for retractions Auscultation: Negative for rales, rhonchi or wheezes Cardio regular rate, regular rhythm, S1 normal heart sound, S2 normal heart sound and no murmurs Palpation: Negative for palpable S3 Rate: Negative for bradycardia Rhythm: Negative for abnormal rhythm GI normal to inspection, nondistended, normoactive bowel sounds, non-tender and no masses Inspection: Negative for abdominal distention Auscultation: normoactive bowel sounds Palpation: soft; Negative for tender Back/Spine no CVA tenderness General Back: Negative for CVA tenderness Cervical Spine: Negative for cervical spine tenderness Thoracic Spine / Upper Back: Negative for thoracic spinal tenderness Lumbar Spine / Lower Back: Negative for lumbar spinal tenderness Extremity normal to inspection General Extremety ED: Negative for edema or tenderness General Extremity: Negative for edema Neuro oriented x3, CN's II-XII intact bilaterally and no sensory deficits noted Sensorium / Orientation: alert; Negative for orientation impaired, lethargic or stuporous Psych Appearance: Negative for unkempt Attitude: No agitated Mood & Affect: Negative for depressed Skin no rashes or lesions noted and no wounds Lesions: No lesion noted Rashes: No rashes noted Trauma: Negative for abrasion Wounds: Negative for wounds noted MDM MDM MDM Narrative Medical decision making narrative: States 66-year-old male complain nausea and vomiting. Clinical looks dehydrated. Will be treated with IV fluids. Abdomen is benign. Screening labs. IV Zofran for nausea. Repeat exam at 12:25 AM patient is doing better he is receiving IV fluids. Has been drinking glasses of water now gene cedric. I went over his labs his hemoglobin is down about 3 units from several days ago. He denies any bruising. He denies any hematemesis. He denies any melena. I did a rectal exam. There is no gross blood or melena at this time. Patient doing well on repeat exam at 12:43 AM. He is only received about a third of the normal saline because the IV has been running very slowly. He is drank several glasses of water and gene cedric. His abdomen is completely benign. He is comfortable being discharged home with outpatient follow-up. Lab Data Attestation: I reviewed the patient's lab results. Lab results narrative: CBC shows a white count 8.1. H&H 11.4 and 34. This is a change from recent labs were his hemoglobin was 14-15. Platelets 223. Electrolytes show a gap of 7 normal BUN of 11 and creatinine 0.7. No signs of dehydration on his labs. Liver enzymes normal. Labs: Laboratory Results - last 24 hr 01/02/22 01/02/22 23:55 23:55 WBC 8.1 RBC 4.06 L Hgb 11.4 L Hct 34.8 L MCV 85.7 MCH 28.1 MCHC 32.8 RDW Std Deviation 42.8 RDW Coeff of Eula 13.7 Plt Count 223 MPV 8.7 Immature Gran % (Auto) 0.400 Neut % (Auto) 65.4 Lymph % (Auto) 23.5 [place] % (Auto) 9.9 Eos % (Auto) 0.4 Baso % (Auto) 0.4 Absolute Neuts (auto) 5.3 Absolute Lymphs (auto) 1.89 Nucleated RBC % 0 Sodium 137 Potassium 3.6 Chloride 104 Carbon Dioxide 26.0 Anion Gap 7 BUN 11 Creatinine 0.70 Estim Creat Clear Calc 86.80 Est GFR (MDRD) Af Amer 143 Est GFR (MDRD) Non-Af 118 BUN/Creatinine Ratio 15.6 Glucose 94 Calcium 8.6 Total Bilirubin 0.20 AST 14 L ALT 24 Alkaline Phosphatase 62 Total Protein 7.0 Albumin 2.8 L Globulin 4.2 Albumin/Globulin Ratio 0.7 L Discharge Plan Triage Chief Complaint: Nausea/Vomiting ED Provider: Hayden Grace Dx/Rx/DC Orders Clinical Impression: Nausea & vomiting, Acute dehydration, History of diabetes mellitus, Anemia Instructions: ED Vomiting (Adult) Prescriptions: New ondansetron 4 mg tablet,disintegrating 4 mg PO Q6H PRN (Reason: nausea and vomiting) Qty: 7 0RF No Action hydroxyzine HCl 50 mg tablet 50 mg PO QHS losartan 50 mg tablet 50 mg PO DAILY Xarelto 15 mg tablet 20 mg PO DAILY atorvastatin 80 MG tablet 80 mg PO DAILY Label Comments: LOWERS CHOLESTEROL nitroglycerin 0.4 MG tablet 0.4 mg sublingual Q5M PRN (Reason: Angina pain ) Qty: 25 0RF Label Comments: chest pain trazodone 50 mg tablet 50 mg PO QHS albuterol sulfate 6.7 GM HFA aerosol inhaler 6.7 g IH Q4H PRN PRN (Reason: COPD) umeclidinium-vilanterol 1 EACH blister with device 1 puff PO DAILY Label Comments: inhale 1 (ONE) puff BY MOUTH EVERY DAY oxycodone-acetaminophen 1 TABLET tablet 1 tablet PO Q4H PRN (Reason: Pain Score 1-10) Levocetirizine Dihydrochloride 5 mg PO QHS furosemide 40 MG tablet 40 mg PO DAILY Label Comments: diuretic carvedilol 6.25 MG tablet 6.25 mg PO BID Victoza 3-Mychal 0.6 mg/0.1 mL (18 mg/3 mL) pen injector 1.8 mg SUBCUT DAILY Label Comments: INJECT 1.8 mg SUBCUTANEOUSLY ONCE DAILY. insulin glargine [Lantus Solostar U-100 Insulin] 100 unit/mL (3 mL) Insulin Pen 80 units subcut BID 30 Days Qty: 48 0RF insulin lispro [Humalog KwikPen Insulin] 100 unit/mL insulin pen 80 unit subcut TIDCM Primary Care Provider: Bulmaro Garcia Referrals: Bulmaro Garcia MD [Primary Care Provider] - 3-5 Days if not improving Activity Restrictions/Additional Instructions: Plenty of fluids and rest. Zofran as needed if you have nausea. Follow-up with your doctor next couple weeks have your blood count rechecked because today it was a little low but it was normal several days ago when you were in the emergency department. Continue your current medications as prescribed. Disposition Disposition: Home, Self Care
[2022-01-03 00:01] LABS: Absolute Lymphocyte Count 1.89 X10^3/uL (0.83-4.51); Absolute Neutrophil Count 5.3 X10^3/uL (2.0-7.7); Basophil# 0.03 X10^3/uL; Basophil% 0.4 % (0-1); Eosinophil# 0.03 X10^3/uL; Eosinophils% 0.4 % (0-5); Hematocrit 34.8 % (40-54); Hemoglobin 11.4 g/dL (13.0-16.5); Lymphocyte # 1.89 X10^3/ul (0.83-4.51); Lymphocyte % 23.5 % (19-41); Mean Corp Hgb Conc 32.8 g/dL (32-36); Mean Corpuscular Hgb 28.1 pg (27.0-32.0); Mean Corpuscular Volume 85.7 fL (80-94); Mean Platelet Vol. 8.7 fl (6.2-12.0); Monocyte% 9.9 % (0-10); NRBC Flagged by Analyzer 0 % (0-5); Neutrophil # 5.27 X10^3/uL (2.7-7.7); Neutrophil % 65.4 % (47-70); Platelet Count 223 K/mm3 (150-450); RBC Distribution Width CV 13.7 % (11.6-14.6); RBC Distribution Width SD 42.8 fl (35.1-43.9); Red Blood Count 4.06 M/mm3 (4.6-6.2); White Blood Count 8.1 K/mm3 (4.4-11.0)
[2022-01-03 00:21] LABS: ALB/GLOB Ratio 0.7 RATIO (0.9-2.4); AST(SGOT) 14 U/L (15-37); Alanine Aminotransfer ALT/SGPT 24 U/L (16-61); Albumin, Serum 2.8 g/dL (3.2-5.0); Alkaline Phosphatase 62 U/L (45-117); Anion Gap 7 (5-15); BUN 11 mg/dL (7-18); BUN/Creat Ratio 15.6 RATIO (10-20); Calcium,Total 8.6 mg/dL (8.5-10.1); Chloride 104 mmol/L (98-107); EST Glomerular Filtration Rate 118 mL/min (>60); Est Glom Filt Rate - Afr Amer 143 mL/min (>60); Globulin 4.2 g/dL (2.2-4.2); Glucose 94 mg/dL (74-106); Potassium 3.6 mmol/L (3.5-5.1); Sodium Level 137 mmol/L (136-145)
[2022-01-03] MEDS: 0.9% Normal Saline 1,000 ML 1000 ML IV (00:36)
== END 2022-01-03 01:40 | disposition home or self-care (01) ==
PROVIDERS: Emergency Provider Emergency Medicine; PCP Family Medicine; Visit Provider Emergency Medicine
DX: R11.2 Nausea with vomiting, unspecified (principal); J44.9 Chronic obstructive pulmonary disease, unspecified; E11.22 Type 2 diabetes mellitus with diabetic chronic kidney disease; E78.5 Hyperlipidemia, unspecified; I12.9 Hypertensive chronic kidney disease with stage 1 through stage 4 chronic kidney disease, or unspecified chronic kidney disease; I25.10 Atherosclerotic heart disease of native coronary artery without angina pectoris; Z87.891 Personal history of nicotine dependence; E86.0 Dehydration; N18.9 Chronic kidney disease, unspecified; I25.5 Ischemic cardiomyopathy
CPT/HCPCS: 99284; 80053; 85025; A4216; J2405

== ENCOUNTER 2022-01-03 07:31 | Inpatient (IN) | payer MEDICARE, MEDICAID, SELFPAY ==
[2022-01-03] VITALS (10 sets, daily range): BP systolic 86–118; BP diastolic 52–69; PULSE 82–140; RESP 14–22; TEMP 36.3–37.1; O2SAT 94–98; BMI 30.4
--- NOTE | 2022-01-03 07:42 | EKG12_ITS ---
Test Reason : Blood Pressure : / mmHG Vent. Rate : 136 BPM Atrial Rate : 136 BPM P-R Int : 132 ms QRS Dur : 102 ms QT Int : 302 ms P-R-T Axes : 032 088 140 degrees QTc Int : 454 ms Sinus tachycardia with Fusion complexes ST & T wave abnormality, consider anterolateral ischemia Abnormal ECG Confirmed by ERNESTO OLIVA, PITA ([id number]), technical writer and editor RAJANI SHEETS ([id number]) on 01/04/2022 2:39:18 PM Referred By: Confirmed By:PITA OROZCO MD
[2022-01-03 08:14] LABS: Absolute Lymphocyte Count 0.61 X10^3/uL (0.83-4.51); Absolute Neutrophil Count 10.5 X10^3/uL (2.0-7.7); Basophil# 0.03 X10^3/uL; Basophil% 0.2 % (0-1); Eosinophil# 0.28 X10^3/uL; Eosinophils% 2.1 % (0-5); Hematocrit 49.4 % (40-54); Hemoglobin 16.6 g/dL (13.0-16.5); Lymphocyte # 0.61 X10^3/ul (0.83-4.51); Lymphocyte % 4.5 % (19-41); Mean Corp Hgb Conc 33.6 g/dL (32-36); Mean Corpuscular Hgb 29.2 pg (27.0-32.0); Mean Corpuscular Volume 86.8 fL (80-94); Mean Platelet Vol. 10.7 fl (6.2-12.0); Monocyte# 1.96 X10^3/uL; Monocyte% 14.5 % (0-10); NRBC Flagged by Analyzer 0 % (0-5); Neutrophil # 10.47 X10^3/uL (2.7-7.7); Neutrophil % 77.5 % (47-70); POSITIVE DIFFERENTIAL YES; Platelet Count 154 K/mm3 (150-450); RBC Distribution Width CV 15.3 % (11.6-14.6); RBC Distribution Width SD 47.7 fl (35.1-43.9); Red Blood Count 5.69 M/mm3 (4.6-6.2); White Blood Count 13.5 K/mm3 (4.4-11.0)
[2022-01-03 08:15] LABS: Differential Indicated SCAN CRITERIA MET
--- NOTE | 2022-01-03 08:18 | EDS_ITS ---
HPI History of Present Illness Chief Complaint: Nausea/Vomiting/Diarrhea Detail of Chief Complaint: Thirst, nausea, vomiting diarrhea Informant: patient Onset/Context/Timing Onset: Yesterday Context: Sudden Onset Timing: Continuous Quality: Nausea, vomiting diarrhea Location: GI Current Severity: Mild Maximum Severity: Severe Worsened by: Nothing specific Relieved by: Nothing Associated Symptoms Associated Symptoms: Thirst, dry mouth and lightheadedness Narrative Narrative: Patient is a 66-year-old male with multiple medical problems who was seen earlier today and discharged with complaint of nausea, vomiting dehydration. His labs were reviewed. Documentation by Dr. Grace was reviewed. Patient presents because he has vomited 5-10 times since he left and now reports diarrhea. He denies hematemesis, hematochezia or melena. He complains of a vague generalized nausea with abdominal discomfort. He presently has no abdominal discomfort. He denies fever, chills night sweats. He denies headache, visual, ocular auditory symptoms. He denies cardiac or respiratory symptoms. He does endorse decreased urine output. He is uncertain whether his urine is darker in color. He is on Eliquis. He denies bruising easily. He does have a history of DVT. He denies ill contacts. 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) Pseudogout of right knee Pulmonary embolism (09/2013) Right knee pain Secondary pulmonary arterial hypertension Type 2 diabetes mellitus Home Medications atorvastatin 80 mg tablet 80 mg PO DAILY cholesterol 10/05/13 [History Last Taken 01/21/21] nitroglycerin 0.4 mg sublingual tablet 0.4 mg sublingual Q5M PRN Angina pain #25 tabs 10/14/13 [Rx Last Taken Unknown] albuterol sulfate 90 mcg/actuation aerosol inhaler 6.7 g IH Q4H PRN PRN COPD 07/22/16 [History Last Taken 05/31/20] hydroxyzine HCl 50 mg tablet 50 mg PO QHS sleep 03/14/17 [History Last Taken 01/21/21] losartan 50 mg tablet 50 mg PO DAILY blood pressure 02/01/18 [History Last Taken 01/21/21] rivaroxaban 15 mg tablet (Xarelto) 20 mg PO DAILY clots 02/25/20 [History Last Taken 01/21/21] trazodone 50 mg tablet 50 mg PO QHS sleep 02/25/20 [History Last Taken 01/21/21] Levocetirizine Dihydrochloride 5 mg PO QHS sleep 05/31/20 [History Last Taken 01/21/21] carvedilol 6.25 mg tablet 6.25 mg PO BID blood pressure 05/31/20 [History Last Taken 01/21/21] furosemide 40 mg tablet 40 mg PO DAILY diuretic 05/31/20 [History Last Taken 01/21/21] oxycodone-acetaminophen 5 mg-325 mg tablet 1 tablet PO Q4H PRN Pain Score 1-10 05/31/20 [History Last Taken 05/31/20] umeclidinium 62.5 mcg-vilanterol 25 mcg/actuation powdr for inhalation 1 puff PO DAILY COPD 05/31/20 [History Last Taken 01/21/21] liraglutide 0.6 mg/0.1 mL (18 mg/3 mL) subcutaneous pen injector (Victoza 3-Mychal) 1.8 mg subcut DAILY diabetes 01/22/21 [History Last Taken 01/21/21] insulin glargine 100 unit/mL (3 mL) subcutaneous pen (Lantus Solostar U-100 Insulin) 80 units (0.8 mL) subcut BID 30 days #48 mL 01/25/21 [Rx Last Taken Unknown] insulin lispro 100 unit/mL subcutaneous pen (Humalog KwikPen (U-100) Insulin) 80 unit subcut TIDCM 12/31/21 [History Last Taken Unknown] ondansetron 4 mg disintegrating tablet 4 mg PO Q6H PRN nausea and vomiting #7 tabs 01/03/22 [Rx Last Taken Unknown] Allergy/AdvReac Type Severity Reaction Status Date / Time No Known Allergies Allergy Verified 01/03/22 07:32 Family History Father CAD (coronary artery disease) Diabetes Brother CAD (coronary artery disease) Diabetes Mother Cancer Leukemia Brother Diabetes Surgical History H/O coronary artery bypass surgery (04/18/99) History of coronary artery stent placement (02/27/05) History of implantable cardiac defibrillator (ICD) (02/07/18) History of left heart catheterization (10/13/13) Hx of cataract extraction Social History Smoking Status: Former smoker pack-years: 39 second hand exposure: No alcohol intake: never substance use type: does not use caffeine: Yes (1/day) what type of physical activity do you participate in: none ROS ROS ED Constitutional Constitutional ED: Denies chills, fever(s), subjective, sweats or weight loss Eyes Eyes: Denies blurry vision, change in vision or diplopia ENT ENT ED: Denies ear pain, rhinorrhea or sore throat Cardiovascular Cardiovascular: Denies chest pain, orthopnea, palpitations, paroxysmal nocturnal dyspnea or racing heartbeat Respiratory/Chest Respiratory/Chest: Denies cough, dyspnea, dyspnea on exertion, orthopnea or paro xysmal nocturnal dyspnea Gastrointestinal Gastrointestinal: Reports abdominal pain, diarrhea, nausea and vomiting; Denies constipation or melena Genitourinary Genitourinary ED: Denies dysuria, hematuria or urinary frequency Musculoskeletal Musculoskeletal: Denies arthralgias, back pain, myalgias or neck pain Integumentary Denies Abrasions or rash Neurologic Neurologic: Reports weakness; Denies headache(s) or paresthesias Endocrine Endocrinology: Denies cold intolerance, heat intolerance, polydipsia or polyuria Hematologic/Lymphatic Hematologic/Lymphatic: Reports easy bruising; Denies anemia EXAM Physical Exam Const Vital Signs: 01/03/22 07:32 Temperature 97.4 F L Temperature Source Temporal Pulse Rate 140 H Respiratory Rate 18 Blood Pressure 118/69 Blood Pressure Mean 85 Pulse Ox 96 Oxygen Delivery Method Room Air Positive well nourished, well developed and unkempt General Appearance ED: unkempt, well developed and NAD; Negative for cyanotic, diaphoretic or pallor HEENT Reports dry mucous membranes HEENT Narrative: Head is normocephalic. There is no evidence of trauma. Ears normal. Nares patent. Mucosa is dry. Uvula is midline. No deviation tongue or protrusion. No erythema or exudate of the posterior pharynx. Mouth ED: Yes dry mucous membranes Mouth: dry mucous membranes Eyes PERRL and EOMs intact bilaterally General Eye ED: Negative for scleral icterus Neck no lymphadenopathy, supple and no JVD Chest Wall inspection of chest normal and palpation of chest normal Resp normal respiratory effort and clear to auscultation bilaterally Cardio S1 normal heart sound, S2 normal heart sound and no murmurs Rate: tachycardic Rhythm: abnormal rhythm ectopic beats GI normal to inspection, nondistended, normoactive bowel sounds, non-tender, non- distended and no masses; Negative for hepatosplenomegaly Auscultation: hypoactive bowel sounds Palpation: soft Back/Spine no CVA tenderness Cervical Spine: Negative for cervical spine tenderness Thoracic Spine / Upper Back: Negative for thoracic spinal tenderness Lumbar Spine / Lower Back: Negative for lumbar spinal tenderness Extremity normal to inspection General Extremety ED: Negative for edema or tenderness General Extremity: Negative for edema Neuro oriented x3, CN's II-XII intact bilaterally and no sensory deficits noted Sensorium / Orientation: alert Motor Exam: strength 5/5 throughout Psych mental status grossly normal Appearance: unkempt Skin no rashes or lesions noted and no wounds General Skin Exam: Negative for jaundice or pallor MDM MDM MDM Narrative Medical decision making narrative: Patient presents with nausea, vomiting diarrhea. Suspect gastroenteritis. Doubt infectious cause. Will obtain blood work and compare to prior visit. CBC was obtained to determine white count and H&H and specifically to determine if he has hemoconcentration compared to prior labs. Basic metabolic panel because of his multiple medical problems assess glucose, CO2 anion gap, electrolytes and specifically potassium as renal function. Because he has history of congestive heart failure he was given a 500 cc bolus of normal saline initially. He also received Zofran. Lab Data Attestation: I reviewed the patient's lab results. Lab results narrative: White count is elevated at 13.5. Hemoglobin slightly elevated 16.6. Patient is hemoconcentrated compared to prior labs. Patient has a mild anion gap. BUN and creatinine are markedly elevated from yesterday's laboratory results. Total bili slightly elevated nonspecific. Patient will require hydration and admission for his acute kidney injury. Labs: Laboratory Results - last 24 hr 01/03/22 01/03/22 08:07 08:07 WBC 13.5 H RBC 5.69 Hgb 16.6 H Hct 49.4 MCV 86.8 MCH 29.2 MCHC 33.6 RDW Std Deviation 47.7 H RDW Coeff of Eula 15.3 H Plt Count 154 MPV 10.7 Immature Gran % (Auto) 1.200 H Neut % (Auto) 77.5 H Lymph % (Auto) 4.5 L Moca % (Auto) 14.5 H Eos % (Auto) 2.1 Baso % (Auto) 0.2 Absolute Neuts (auto) 10.5 H Absolute Lymphs (auto) 0.61 L Nucleated RBC % 0 Differential Comment COMMENT Diff Path Review May foll Sodium 138 Potassium 3.5 Chloride 100 Carbon Dioxide 22.0 Anion Gap 16 H BUN 39 H Creatinine 2.42 H Estim Creat Clear Calc 35.87 Est GFR (MDRD) Af Amer 34 L Est GFR (MDRD) Non-Af 28 L BUN/Creatinine Ratio 16.1 Glucose 163 H Calcium 9.3 Total Bilirubin 1.50 H AST 18 ALT 30 Alkaline Phosphatase 74 Total Protein 7.7 Albumin 4.0 Globulin 3.7 Albumin/Globulin Ratio 1.1 EKG Initial EKG: Attestation: I personally reviewed and interpreted this EKG as follows: Interpretation: Sinus Tachycardia (Ventricular rate is 136. There are pr emature beats noted. SD interval is 132 ms. QS 302 ms. QT duration 202 ms. [place] is normal. There is an ossific anterolateral changes. We will need to compare to prior. These are slightly more pronounced compared to EKG that was obtained on July 22, 2016.) Prior EKG tracings: available for review (Documented earlier in the chart) Discharge Plan Dx/Rx/DC Orders Clinical Impression: Abdominal pain, vomiting, and diarrhea, Atherosclerosis of osage coronary artery of osage heart without angina pectoris, Acute kidney injury, Severe dehydration, Sinus tachycardia, Hyperglycemia due to type 2 diabetes mellitus, Increased anion gap metabolic acidosis Disposition Disposition: [facility]
[2022-01-03] MEDS: Ondansetron 4 MG/2 ML Vial IV ×2 (08:21→16:27)
[2022-01-03 08:34] LABS: ALB/GLOB Ratio 1.1 RATIO (0.9-2.4); AST(SGOT) 18 U/L (15-37); Alanine Aminotransfer ALT/SGPT 30 U/L (16-61); Alkaline Phosphatase 74 U/L (45-117); Anion Gap 16 (5-15); BUN 39 mg/dL (7-18); BUN/Creat Ratio 16.1 RATIO (10-20); Calcium,Total 9.3 mg/dL (8.5-10.1); Chloride 100 mmol/L (98-107); Creatinine, Serum 2.42 mg/dL (0.70-1.30); EST Glomerular Filtration Rate 28 mL/min (>60); Est Glom Filt Rate - Afr Amer 34 mL/min (>60); Estimated Creatinine Clearance 35.87 ml/min; Globulin 3.7 g/dL (2.2-4.2); Glucose 163 mg/dL (74-106); Potassium 3.5 mmol/L (3.5-5.1); Protein, Total 7.7 g/dL (6.4-8.2); Sodium Level 138 mmol/L (136-145)
[2022-01-03] MEDS: 0.9% Normal Saline 1,000 ML 1000 ML IV (09:58)
--- NOTE | 2022-01-03 11:20 | PCM.HP.STD ---
HPI - General General Date of Admission: 01/03/22 Date of Service: 01/03/22 Chief Complaint: Nausea/vomiting/diarrhea HPI Narrative PETE ORTIZ, is a 66 M who presented emergency department [facility] on 01/03/2022 complaining of intractable nausea vomiting and diarrhea. Patient evidently presented overnight with nausea and vomiting and was treated and given a p.o. challenge to which he tolerated and was able to drink water and gene cedric prior to discharge however the patient indicates when he got home he started having profuse nausea and vomiting and then developed diarrhea. He indicated he had had constipation for approximately a week and then developed nausea and vomiting the day prior to admission. Evidently since he was discharged home from the emergency department overnight he had vomited 5-10 times and had profuse diarrhea and was unable to keep anything down. He denied any hematemesis melena or hematochezia and complained of only some mild lower abdominal cramping. He denied any fever or chills/sweats. He denies any respiratory symptoms but does indicate his urine is darker than normal with decreased output but he does not endorse dysuria. He has no known ill contacts. Vital signs in the emergency department demonstrated a temperature of 97.4, heart rate on presentation was 140, initial blood pressure was 118/69 however this decreased to a floresita of 71/41 at the time of my evaluation at which time I requested a liter bolus be given. His blood pressure did improve with an improved heart rate as well to 116 and 96/52. Respirations were anywhere from 14-22 and he is satting 94 to 96% on room air. His CBC shows a mild leukocytosis and erythrocytosis at 13.5 and 16.6 respectively however I suspect these are hemoconcentrated with his dehydration. His chemistry panel showed normal electrolytes however his anion gap was 16 his BUN was 39 and his serum creatinine was 2.42. This is a dramatic change in 8-hour time frame where his anion gap was 7, BUN was 11 and serum creatinine was 0.7 while he was in the emergency department last evening. His bilirubin is slightly elevated at 1.50 likely due to his dehydration and his LFTs are within normal limits. In the emergency department he was initially given 500 cc as they were concerned with his history of ischemic cardiomyopathy and an EF of 40% however with him being hypotensive and tachycardic another liter was given at which time his heart rate and blood pressure did improve. [facility] Medical History (Updated 01/03/22 @ 11:[address] 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) Pseudogout of right knee Pulmonary embolism (09/2013) Right knee pain Secondary pulmonary arterial hypertension Type 2 diabetes mellitus Home Medications atorvastatin 80 mg tablet 80 mg PO DAILY cholesterol 10/05/13 [History Last Taken 01/21/21] nitroglycerin 0.4 mg sublingual tablet 0.4 mg sublingual Q5M PRN Angina pain #25 tabs 10/14/13 [Rx Last Taken Unknown] albuterol sulfate 90 mcg/actuation aerosol inhaler 6.7 g IH Q4H PRN PRN COPD 07/22/16 [History Last Taken 05/31/20] hydroxyzine HCl 50 mg tablet 50 mg PO QHS sleep 03/14/17 [History Last Taken 01/21/21] losartan 50 mg tablet 50 mg PO DAILY blood pressure 02/01/18 [History Last Taken 01/21/21] rivaroxaban 15 mg tablet (Xarelto) 20 mg PO DAILY clots 02/25/20 [History Last Taken 01/21/21] trazodone 50 mg tablet 50 mg PO QHS sleep 02/25/20 [History Last Taken 01/21/21] Levocetirizine Dihydrochloride 5 mg PO QHS sleep 05/31/20 [History Last Taken 01/21/21] carvedilol 6.25 mg tablet 6.25 mg PO BID blood pressure 05/31/20 [History Last Taken 01/21/21] furosemide 40 mg tablet 40 mg PO DAILY diuretic 05/31/20 [History Last Taken 01/21/21] oxycodone-acetaminophen 5 mg-325 mg tablet 1 tablet PO Q4H PRN Pain Score 1-10 05/31/20 [History Last Taken 05/31/20] umeclidinium 62.5 mcg-vilanterol 25 mcg/actuation powdr for inhalation 1 puff PO DAILY COPD 05/31/20 [History Last Taken 01/21/21] liraglutide 0.6 mg/0.1 mL (18 mg/3 mL) subcutaneous pen injector (Victoza 3-Mychal) 1.8 mg subcut DAILY diabetes 01/22/21 [History Last Taken 01/21/21] insulin glargine 100 unit/mL (3 mL) subcutaneous pen (Lantus Solostar U-100 Insulin) 80 units (0.8 mL) subcut BID 30 days #48 mL 01/25/21 [Rx Last Taken Unknown] insulin lispro 100 unit/mL subcutaneous pen (Humalog KwikPen (U-100) Insulin) 80 unit subcut TIDCM 12/31/21 [History Last Taken Unknown] ondansetron 4 mg disintegrating tablet 4 mg PO Q6H PRN nausea and vomiting #7 tabs 01/03/22 [Rx Last Taken Unknown] Allergy/AdvReac Type Severity Reaction Status Date / Time No Known Allergies Allergy Verified 01/03/22 07:32 Family History Father CAD (coronary artery disease) Diabetes Brother CAD (coronary artery disease) Diabetes Mother Cancer Leukemia Brother Diabetes Surgical History (Updated 01/03/22 @ 11:[address] Velia Bright DO) H/O coronary artery bypass surgery (04/18/99) History of cholecystectomy History of coronary artery stent placement (02/27/05) History of implantable cardiac defibrillator (ICD) (02/07/18) History of left heart catheterization (10/13/13) Hx of cataract extraction Social History (Updated 01/03/22 @ 11:[address] Velia Bright DO) Smoking Status: Former smoker pack-years: 39 second hand exposure: No alcohol intake: former substance use type: does not use caffeine: Yes (1/day) what type of physical activity do you participate in: none ROS Constitutional Constitutional: Reports anorexia and weakness; Denies change in weight, chills, fatigue, fever(s), malaise, night sweats or other Eyes Eyes: Denies blurry vision, change in eye color, change in vision, discharge from eye(s), double vision, erythema, eye pain, loss of vision or other ENT HEENT: Reports abnormal hearing and hearing loss; Denies dysphagia, ear pain, epistaxis, headache(s), nasal congestion, nasal discharge, post nasal drip, sinus pressure, sore throat or other Cardiovascular Cardiovascular: Denies chest pain, claudication, dyspnea on exertion, edema, lightheadedness, orthopnea, palpitations, paroxysmal nocturnal dyspnea, rapid heart rate, syncope or other Respiratory/Chest Respiratory/Chest: Denies cough, dyspnea, excessive phlegm production, hemoptysis, productive cough, shortness of breath at rest, shortness of breath with exertion, wheezing or other Gastrointestinal Gastrointestinal: Reports abdominal pain, diarrhea, nausea and vomiting; Denies coffee ground emesis, constipation, dyspepsia, hematemesis, hematochezia, loose stools, melena or other Genitourinary Genitourinary: Reports other Details: Dark urine with decreased output ; Denies burning urination, difficulty urinating, dysuria, hematuria, nocturia, urinary frequency, urinary hesitancy, urinary incontinence or urinary urgency Musculoskeletal Musculoskeletal: Reports joint pain and joint stiffness; Denies arthralgias, back pain, joint swelling, myalgias, neck pain or other Neurologic Neurologic: Denies abnormal gait, abnormal speech, confusion, disequilibrium, dizziness, focal weakness, headache(s), numbness, paresthesias, seizure-like activity, seizures, syncope, tingling, tremor(s) or other Psychiatric Psychiatric: Denies anxiety, depression, homicidal ideation, suicidal ideation or other Endocrine Endocrinology: Denies change in body appearance, cold intolerance, excessive sweating, heat intolerance, polydipsia, polyuria or other Hematologic/Lymphatic Hematologic/Lymphatic: Denies anemia, easy bleeding, easy bruising, lymphadenopathy or other Allergic/Immunologic Allergic/Immunologic: Denies rhinitis, hives, eczemia, asthma or other Vital Signs Vital Signs Vital Signs: 01/03/22 07:32 01/03/22 09:10 01/03/22 09:57 Temperature 97.4 F L 98 F Temperature Source Temporal Temporal Pulse Rate 140 H 122 H Respiratory Rate 18 22 H Blood Pressure 118/69 91/55 L 86/66 L Blood Pressure Mean 85 67 72 Pulse Ox 96 94 Oxygen Delivery Method Room Air Room Air 01/03/22 10:29 01/03/22 11:05 Temperature Temperature Source Pulse Rate 113 H 116 H Respiratory Rate 14 17 Blood Pressure 96/57 L 96/52 L Blood Pressure Mean 70 66 Pulse Ox 96 96 Oxygen Delivery Method Room Air Room Air Weight Weight: 113.451 kg Body Mass Index (BMI) 30.4 Physical Exam Const alert, oriented x3 and well nourished Constitutional Narrative: Upper middle-aged white male sitting up in bed, appears nontoxic but mildly uncomfortable General Appearance: cooperative HEENT normocephalic and head/scalp atraumatic HEENT Narrative: Dentition is fair, Mallampati is 3, mucous membranes are dry, moderate hearing loss Eyes PERRL, EOMs intact bilaterally and conjunctivae normal Eyes Narrative: No scleral icterus Neck no lymphadenopathy and supple Neck Narrative: Trachea midline, no thyroid enlargement Resp normal respiratory effort, no retractions, no use of accessory muscles and clear to auscultation bilaterally Resp Narrative: Diffusely diminished but clear Auscultation: Negative for crackles, rales, rhonchi or wheezes Cardio regular rhythm, S1 normal heart sound, S2 normal heart sound, no murmurs, no rub, no gallops, no clicks and no JVD Cardio Narrative: Sinus tachycardia GI normal to inspection, nondistended, normoactive bowel sounds and soft to palpation GI Narrative: Mild abdominal discomfort with palpation at bilateral lower quadrants Extremity no clubbing, cyanosis or edema Extremity Narrative: 1+ pedal pulses rapid and thready Skin no rashes or lesions noted, no wounds, skin turgor normal, no jaundice, no petechiae and no mottling Neuro oriented x3, CN's II-XII intact bilaterally, moves all extremities and no focal motor deficits Neuro Narrative: Decreased sensation bilateral distal lower extremities Speech: speech normal Psych affect normal Psych Narrative: Very pleasant and appropriately interactive Results Lab / Micro Data Attestation: I reviewed the patient's lab results. Result Diagrams: 01/03/22 08:07 01/03/22 08:07 Labs: Laboratory Results - last 24 hr 01/03/22 08:07: WBC 13.5 H, RBC 5.69, Hgb 16.6 H, Hct 49.4, MCV 86.8, MCH 29.2, MCHC 33.6, RDW Std Deviation 47.7 H, RDW Coeff of Eula 15.3 H, Plt Count 154, MPV 10.7, Immature Gran % (Auto) 1.200 H, Neut % (Auto) 77.5 H, Lymph % (Auto) 4.5 L, [place] % (Auto) 14.5 H, Eos % (Auto) 2.1, Baso % (Auto) 0.2, Absolute Neuts (auto) 10.5 H, Absolute Lymphs (auto) 0.61 L, Nucleated RBC % 0, Differential Comment COMMENT, Diff Path Review June01/03/22 08:07: Sodium 138, Potassium 3.5, Chloride 100, Carbon Dioxide 22.0, Anion Gap 16 H, BUN 39 H, Creatinine 2.42 H, Estim Creat Clear Calc 35.87, Est GFR (MDRD) Af Amer 34 L, Est GFR (MDRD) Non-Af 28 L, BUN/Creatinine Ratio 16.1, Glucose 163 H, Calcium 9.3, Total Bilirubin 1.50 H, AST 18, ALT 30, Alkaline Phosphatase 74, Total Protein 7.7, Albumin 4.0, Globulin 3.7, Albumin/Globulin Ratio 1.1 Assessment & Plan Assessment/Plan (1) Nausea & vomiting: (2) Acute dehydration: (3) BRENNAN (acute kidney injury): (4) Diarrhea: (5) Increased anion gap metabolic acidosis: (6) Hypotension: (7) Sinus tachycardia: PLAN: Plan Intractable nausea vomiting/diarrhea -Suspect viral illness -Check C. difficile -Check stool enteric's -Antiemetics -IV fluids -Clear liquid diet and will advance as patient is able to tolerate Hypotension/tachycardia -This appears to be all related to his severe dehydration -Responding well to IV fluids -Continue hydration -Monitor vitals -Hold parameters on antihypertensives Acute kidney injury secondary to dehydration -Baseline serum creatinine appears to be between 0.7 and 1.1 -Current serum creatinine 2.4 to -Decrease insulin dosing based on decreased clear since -Hold home losartan -Hold home diuretics -Aggressive IV fluids with LR at 100 cc/h -Closely for any signs of respiratory decompensation with history of ischemic cardiomyopathy and EF of 40% -Repeat BMP in a.m. -If creatinine does not improve will pursue further work-up Elevated anion gap -Likely related to acute kidney injury -Should resolve with IV fluids -Continue to monitor DM-2 -Patient is on substantial doses of insulin including Lantus 80 units twice daily and Humalog 80 units 3 times daily -We will reduce Lantus dose by 50% with 40 units twice daily given oral intake is reduced -We will utilize Humalog 20 units 3 times daily with meals -Sliding scale -Accu-Cheks -Hold home Victoza CAD/HTN/HPL/ischemic cardiomyopathy/history of nonsustained VT -Continue home atorvastatin -continue carvedilol with hold parameters for blood pressure and heart rate next hold home losartan -Patient is status post CABG 1999/stent placement 2005 with BMS -HFrEF is currently compensated -Last echo is from 03/10/2020 and demonstrate an EF of 40% with mild to moderate global left ventricular dysfunction and global hypokinesis along with akinesis in the inferior basal region and posterior basal region of the LV -Monitor respiratory status closely with aggressive hydration due to dehydration -Patient has ICD COPD -Continue home inhalers History of DVT/PE -Continue anticoagulation with Xarelto as I do anticipate his renal function should improve dramatically if not we will need to transition to Eliquis Obesity -BMI 30.4 -Recommend weight loss -Complicates treatment, prognosis, outcomes DVT prophylaxis -Xarelto as above CODE STATUS -Full code is verified prior to admission Charges/Coding Visit Charges OBSV E&M: 87274 Initial observation care L3
[2022-01-03] MEDS: Lactated Ringers 1,000 ML 100 ML IV ×2 (12:00→22:41)
[2022-01-03] MEDS: 0.9% Normal Saline 1,000 ML 250 ML IV (13:17)
[2022-01-03 13:25] LABS: Color, Urine Yellow (Yellow); Glucose, Dipstick Normal (Normal); Ketone-Dipstick 5 mg/dl (Negative); Leukocyte Esterase-Dipstick 25 /ul (Negative); Nitrite-Dipstick Negative (Negative); Occult Blood-Urine Negative /ul (Negative); Protein-Dipstick 30 mg/dl (Negative); Urine Bilirubin Dipstick 3 mg/dL (Negative); Urine Clarity Sl. Cloudy (Clear); Urine Urobilinogen 1 mg/dl (Normal)
[2022-01-03] MEDS: Insulin Lispro 100 UNIT/ML INSULN.PEN 20 UNIT SC (13:30)
[2022-01-03 13:55] LABS: Bedside Glucose 203 mg/dL (74-106)
[2022-01-03 15:15] LABS: Pathologist Review Reviewed
[2022-01-03] MEDS: Insulin Lispro 100 UNIT/ML INSULN.PEN SC (16:23)
[2022-01-03] MEDS: Rivaroxaban 20 MG Tablet PO (16:27)
[2022-01-03 16:50] LABS: Bedside Glucose 172 mg/dL (74-106)
[2022-01-03] MEDS: traZODone 50 MG Tablet PO (22:45)
[2022-01-03] MEDS: hydrOXYzine PAM 25 MG Capsule 50 MG PO (22:45)
[2022-01-03] MEDS: Atorvastatin Calcium 80 MG Tablet PO (22:45)
[2022-01-03] MEDS: Insulin Glargine-YFGN 100 UNIT/ML Pen 40 UNIT SC (22:52)
[2022-01-03 23:41] LABS: Bedside Glucose 221 mg/dL (74-106)
[2022-01-04] VITALS (7 sets, daily range): BP systolic 103–131; BP diastolic 48–66; PULSE 72–88; RESP 16–18; TEMP 36.3–37.2; O2SAT 93–97
[2022-01-04 05:11] LABS: Absolute Lymphocyte Count 1.47 X10^3/uL (0.83-4.51); Absolute Neutrophil Count 5.2 X10^3/uL (2.0-7.7); Basophil# 0.01 X10^3/uL; Basophil% 0.1 % (0-1); Eosinophil# 0.11 X10^3/uL; Eosinophils% 1.3 % (0-5); Hemoglobin 12.4 g/dL (13.0-16.5); Lymphocyte # 1.47 X10^3/ul (0.83-4.51); Mean Corp Hgb Conc 32.6 g/dL (32-36); Mean Platelet Vol. 11.1 fl (6.2-12.0); Monocyte# 1.34 X10^3/uL; Monocyte% 16.4 % (0-10); NRBC Flagged by Analyzer 0 % (0-5); Neutrophil # 5.21 X10^3/uL (2.7-7.7); POSITIVE MORPHOLOGY YES; Platelet Count 105 K/mm3 (150-450); RBC Distribution Width CV 15.4 % (11.6-14.6); RBC Distribution Width SD 49.8 fl (35.1-43.9); Red Blood Count 4.27 M/mm3 (4.6-6.2); White Blood Count 8.2 K/mm3 (4.4-11.0)
[2022-01-04 05:12] LABS: Differential Indicated SCAN CRITERIA MET
[2022-01-04 05:29] LABS: Anisocytosis 1+; Platelet Estimate SLT DEC (ADEQ)
[2022-01-04] MEDS: Lactated Ringers 1,000 ML 100 ML IV (06:28)
[2022-01-04 06:30] LABS: ALB/GLOB Ratio 0.8 RATIO (0.9-2.4); AST(SGOT) 20 U/L (15-37); Alanine Aminotransfer ALT/SGPT 20 U/L (16-61); Albumin, Serum 2.6 g/dL (3.2-5.0); Alkaline Phosphatase 45 U/L (45-117); Anion Gap 8 (5-15); BUN 45 mg/dL (7-18); BUN/Creat Ratio 26.6 RATIO (10-20); Chloride 102 mmol/L (98-107); Creatinine, Serum 1.69 mg/dL (0.70-1.30); EST Glomerular Filtration Rate 43 mL/min (>60); Est Glom Filt Rate - Afr Amer 52 mL/min (>60); Estimated Creatinine Clearance 51.36 ml/min; Globulin 3.1 g/dL (2.2-4.2); Glucose 177 mg/dL (74-106); Magnesium 1.7 mg/dL (1.6-2.6); Phosphorus 2.9 mg/dL (2.5-4.9); Protein, Total 5.7 g/dL (6.4-8.2); Sodium Level 136 mmol/L (136-145); Thyroid Stim Hormone (TSH) 0.64 uIU/mL (0.358-3.74)
[2022-01-04] MEDS: oxyCODONE 5 MG Tablet PO ×2 (10:01→22:35)
[2022-01-04] MEDS: Insulin Glargine-YFGN 100 UNIT/ML Pen 40 UNIT SC (10:02)
[2022-01-04] MEDS: Carvedilol 6.25 MG Tablet PO ×2 (10:02→22:36)
[2022-01-04] MEDS: Insulin Lispro 100 UNIT/ML INSULN.PEN 20 UNIT SC (10:03)
[2022-01-04 10:25] LABS: Bedside Glucose 197 mg/dL (74-106)
--- NOTE | 2022-01-04 12:25 | CASEMGMT ---
RN CM CRIMINAL ANALYST CM to room to meet with patient for initial transition planning/care coordination assessment. RN LUZ introduced self and role at [facility]. Pt voices understanding and consents to assessment at this time. Pt sitting up in recliner chair in room in no distress at this time. Pt is A/O at this time and answers all questions appropriately. Care providers, pharmacy, and demographics verified/updated at this time. PCP: Dr Bulmaro Garcia Specialists: Dr Garza-cardiology Preferred Pharmacy: [facility] Retail pharmacy Insurance: N-Trig ARJUN DEVRIES Prescription Benefit: Yes Living Will/HPOA: Pt does not currently have LW/HCPOA LNOK: 3 daughter: Shereen Rowland Brandy Living Arrangements: Lives alone in mobile home w/2-3 steps to enter. Denies difficulty w/stairs. Independent w/ADL's and IADL's. Transportation: Pt states drives self and states no transportation concerns at this time. DME: States has the following DME: functioning glucometer w/supplies. Has a cane and walker available but does not use. Pt states no need for further DME at this time. HHC/SNF: No hx of either. No needs identified. Pt wishes to return home and states has no concerns with going home at time of discharge. Pt states does not smoke or drink ETOH. CM to follow for any discharge planning/needs. Pt voices no concerns/needs at this time. Advised pt to ask for CM if any further questions/concerns/needs arise. Voices understanding. PLAN: Home Nikki JULES RN, CM
[2022-01-04] MEDS: Vancomycin 125 MG/5 ML Susp PO.SYRINGE PO ×3 (13:14→23:28)
--- NOTE | 2022-01-04 14:57 | PCM.PN.HOSP ---
Subjective Subjective Patient still with ongoing diarrhea. Reports nausea and vomiting has improved. Tolerating clear liquids without any issues. We did discuss that he is positive for C. difficile and he again denies recent antibiotic use. 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 Objective Data Objective Data Vital Signs: Vital Signs Temp Pulse Resp BP Pulse Ox O2 Del Method 98.2 F 83 16 121/52 H 96 Room Air 01/04/22 10:00 01/04/22 10:00 01/04/22 10:00 01/04/22 10:00 01/04/22 10:00 01/04/22 10:00 Oxygen Delivery Method Room Air Weight: 111.8 kg Body Mass Index (BMI) 30.0 Intake & Output: Intake and Output for Last 24 Hours 01/02/22 01/03/22 01/04/22 23:59 23:59 23:59 Intake Total 3900 / 3900 778.33 / 778.33 Balance 3900 / 3900 778.33 / 778.33 Lab / Micro Data Result Diagrams: 01/04/22 04:32 01/04/22 04:32 Labs: Laboratory Results - last 24 hr 01/03/22 08:07: Diff Path Review Reviewed 01/03/22 16:21: POC Glucose 172 H 01/03/22 22:43: POC Glucose 221 H 01/04/22 04:32: WBC 8.2, RBC 4.27 L, Hgb 12.4 L, Hct 38.0 L, MCV 89.0, MCH 29.0, MCHC 32.6, RDW Std Deviation 49.8 H, RDW Coeff of Eula 15.4 H, Plt Count 105 L, MPV 11.1, Immature Gran % (Auto) 0.200, Neut % (Auto) 64.0, Lymph % (Auto) 18.0 L, [place] % (Auto) 16.4 H, Eos % (Auto) 1.3, Baso % (Auto) 0.1, Absolute Neuts (auto) 5.2, Absolute Lymphs (auto) 1.47, Nucleated RBC % 0, Platelet Estimate SLT DEC, Anisocytosis 1+ 01/04/22 04:32: Sodium 136, Potassium 4.0, Chloride 102, Carbon Dioxide 26.0, Anion Gap 8, BUN 45 H, Creatinine 1.69 H, Estim Creat Clear Calc 51.36, Est GFR (MDRD) Af Amer 52 L, Est GFR (MDRD) Non-Af 43 L, BUN/Creatinine Ratio 26.6 H, Glucose 177 H, Calcium 8.0 L, Phosphorus 2.9, Magnesium 1.7, Total Bilirubin 1.40 H, AST 20, ALT 20, Alkaline Phosphatase 45, Total Protein 5.7 L, Albumin 2.6 L, Globulin 3.1, Albumin/Globulin Ratio 0.8 L, TSH 0.64 01/04/22 10:01: POC Glucose 197 H Micro: Microbiology 01/03/22 15:35 Stool Enteric Bacteriology - Final 01/03/22 15:35 Stool C. difficile GDH Antigen & Toxins - Final 01/03/22 15:35 Stool C. difficile DNA Amplification - Final Physical Exam Const alert, oriented x3 and well nourished Constitutional Narrative: Upper middle-aged white male sitting up in bed, appears more comfortable today, ill but nontoxic-appearing General Appearance: cooperative HEENT normocephalic and head/scalp atraumatic Head and Scalp: normocephalic Resp normal respiratory effort, no retractions, no use of accessory muscles and clear to auscultation bilaterally Resp Narrative: Diffusely diminished but clear Auscultation: Negative for crackles, rales, rhonchi or wheezes Cardio regular rate, regular rhythm, S1 normal heart sound, S2 normal heart sound, no murmurs, no rub, no gallops, no clicks and no JVD GI normal to inspection, nondistended, normoactive bowel sounds and soft to palpation GI Narrative: Mild abdominal discomfort with palpation at bilateral lower quadrants Extremity no clubbing, cyanosis or edema Extremity Narrative: 2+ pedal pulses Neuro oriented x3, moves all extremities and no focal motor deficits Speech: speech normal Psych affect normal Psych Narrative: Very pleasant and appropriately interactive Assessment & Plan Assessment/Plan (1) Nausea & vomiting: (2) Acute dehydration: (3) BRENNAN (acute kidney injury): (4) Diarrhea: (5) Increased anion gap metabolic acidosis: (6) Hypotension: (7) Sinus tachycardia: PLAN: Plan C. difficile related diarrheal infection -C. difficile toxin and PCR positive -Start vancomycin oral 125 mg 4 times daily for total of 14 days -Advance diet from clear to falls and if patient tolerates well will be able to advance to regular diet -Decrease IV fluids from 100 cc/h to 50 cc/h -Continue to monitor stool Hypotension/tachycardia -Resolved -Fluid responsive and likely related dehydration which was severe Acute kidney injury secondary to dehydration -Baseline serum creatinine appears to be between 0.7 and 1.1 -Serum creatinine was 2.42 on admission and has improved to 1.69 with hydration -Continue to hold home losartan -Continue to hold home diuretics -Patient received 3 total liters bolus of IV fluids on the day of admission -Decrease IV fluids from 100 to 50 cc/h -Closely for any signs of respiratory decompensation with history of ischemic cardiomyopathy and EF of 40% -Repeat BMP in a.m. Elevated anion gap -Resolved DM-2 -Patient is on substantial doses of insulin including Lantus 80 units twice daily and Humalog 80 units 3 times daily -With advancing of p.o. diet will increase insulin to 60 units twice daily -We will continue to utilize Humalog 20 units 3 times daily with meals -Sliding scale -Accu-Cheks -Hold home Victoza CAD/HTN/HPL/ischemic cardiomyopathy/history of nonsustained VT -Continue home atorvastatin -continue carvedilol with hold parameters for blood pressure and heart rate next hold home losartan -Patient is status post CABG 1999/stent placement 2005 with BMS -HFrEF is currently compensated -Last echo is from 03/10/2020 and demonstrate an EF of 40% with mild to moderate global left ventricular dysfunction and global hypokinesis along with akinesis in the inferior basal region and posterior basal region of the LV -Monitor respiratory status closely with aggressive hydration due to dehydration -Patient has ICD COPD -Continue home inhalers History of DVT/PE -Continue anticoagulation with Xarelto as I do anticipate his renal function should improve dramatically if not we will need to transition to Eliquis Obesity -BMI 30.4 -Recommend weight loss -Complicates treatment, prognosis, outcomes DVT prophylaxis -Xarelto as above CODE STATUS -Full code is verified prior to admission Charges/Coding Visit Charges Inpatient E&M: 94001 Subs Hosp L2
[2022-01-04] MEDS: Rivaroxaban 20 MG Tablet PO (16:34)
[2022-01-04 17:00] LABS: Bedside Glucose 95 mg/dL (74-106)
[2022-01-04] MEDS: Lactated Ringers 1,000 ML 50 ML IV (22:31)
[2022-01-04] MEDS: Insulin Glargine-YFGN 100 UNIT/ML Pen 60 UNIT SC (22:32)
[2022-01-04] MEDS: Atorvastatin Calcium 80 MG Tablet PO (22:36)
[2022-01-04] MEDS: hydrOXYzine PAM 25 MG Capsule 50 MG PO (22:36)
[2022-01-04] MEDS: traZODone 50 MG Tablet PO (22:37)
[2022-01-05] VITALS (11 sets, daily range): BP systolic 94–135; BP diastolic 50–84; PULSE 67–88; RESP 16–18; TEMP 36.3–36.9; O2SAT 92–98
[2022-01-05 02:01] LABS: Bedside Glucose 218 mg/dL (74-106)
[2022-01-05 05:00] LABS: Absolute Lymphocyte Count 1.81 X10^3/uL (0.83-4.51); Absolute Neutrophil Count 4.3 X10^3/uL (2.0-7.7); Basophil# 0.01 X10^3/uL; Basophil% 0.1 % (0-1); Eosinophil# 0.16 X10^3/uL; Eosinophils% 2.2 % (0-5); Hematocrit 36.4 % (40-54); Lymphocyte # 1.81 X10^3/ul (0.83-4.51); Lymphocyte % 25.1 % (19-41); Mean Corpuscular Hgb 29.4 pg (27.0-32.0); Mean Corpuscular Volume 89.2 fL (80-94); Mean Platelet Vol. 10.8 fl (6.2-12.0); Monocyte# 0.92 X10^3/uL; Monocyte% 12.8 % (0-10); NRBC Flagged by Analyzer 0 % (0-5); Neutrophil # 4.25 X10^3/uL (2.7-7.7); Neutrophil % 59.1 % (47-70); POSITIVE COUNT YES; Platelet Count 98 K/mm3 (150-450); RBC Distribution Width CV 14.8 % (11.6-14.6); RBC Distribution Width SD 48.7 fl (35.1-43.9); Red Blood Count 4.08 M/mm3 (4.6-6.2); White Blood Count 7.2 K/mm3 (4.4-11.0)
[2022-01-05] MEDS: Albuterol 2.5 MG/3 ML VIAL.NEB. INHALATION (05:00)
[2022-01-05 05:23] LABS: Anion Gap 4 (5-15); BUN 32 mg/dL (7-18); BUN/Creat Ratio 25.6 RATIO (10-20); Calcium,Total 8.3 mg/dL (8.5-10.1); Chloride 106 mmol/L (98-107); Creatinine, Serum 1.25 mg/dL (0.70-1.30); EST Glomerular Filtration Rate 61 mL/min (>60); Est Glom Filt Rate - Afr Amer 74 mL/min (>60); Estimated Creatinine Clearance 69.44 ml/min; Glucose 180 mg/dL (74-106); Phosphorus 2.5 mg/dL (2.5-4.9); Sodium Level 138 mmol/L (136-145)
[2022-01-05] MEDS: Vancomycin 125 MG/5 ML Susp PO.SYRINGE PO ×4 (05:45→23:54)
[2022-01-05] MEDS: Insulin Lispro 100 UNIT/ML INSULN.PEN 20 UNIT SC ×2 (07:47→16:23)
[2022-01-05] MEDS: Insulin Lispro 100 UNIT/ML INSULN.PEN SC ×3 (07:47→16:23)
[2022-01-05] MEDS: Carvedilol 6.25 MG Tablet PO ×2 (07:54→22:19)
[2022-01-05 08:16] LABS: Bedside Glucose 159 mg/dL (74-106)
[2022-01-05] MEDS: Insulin Glargine-YFGN 100 UNIT/ML Pen 60 UNIT SC ×2 (10:31→22:22)
[2022-01-05 10:50] LABS: Bedside Glucose 161 mg/dL (74-106)
--- NOTE | 2022-01-05 11:25 | PCM.PN.HOSP ---
Subjective Subjective Patient notes that he is feeling much better today. No diarrhea through the night. Ate his first full meal this morning. States he still feels weak and is concerned about going home today as he has to take care of everything on his own at home as he lives alone. He does indicate though that he might be ready tomorrow. Objective Data Objective Data Vital Signs: Vital Signs Temp Pulse Resp BP Pulse Ox O2 Del Method 98.1 F 88 18 127/68 H 98 Room Air 01/05/22 10:00 01/05/22 10:00 01/05/22 10:00 01/05/22 10:00 01/05/22 10:00 01/05/22 10:00 Oxygen Delivery Method Room Air Weight: 111.5 kg Body Mass Index (BMI) 30.0 Intake & Output: Intake and Output for Last 24 Hours 01/03/22 01/04/22 01/05/22 23:59 23:59 23:59 Intake Total 3900 / 3900 1778.33 / 1778.33 Balance 3900 / 3900 1778.33 / 1778.33 Lab / Micro Data Result Diagrams: 01/05/22 04:38 01/05/22 04:38 Labs: Laboratory Results - last 24 hr 01/04/22 16:30: POC Glucose 95 01/04/22 22:28: POC Glucose 218 H 01/05/22 04:38: WBC 7.2, RBC 4.08 L, Hgb 12.0 L, Hct 36.4 L, MCV 89.2, MCH 29.4, MCHC 33.0, RDW Std Deviation 48.7 H, RDW Coeff of Eula 14.8 H, Plt Count 98 L, MPV 10.8, Immature Gran % (Auto) 0.700, Neut % (Auto) 59.1, Lymph % (Auto) 25.1, [place] % (Auto) 12.8 H, Eos % (Auto) 2.2, Baso % (Auto) 0.1, Absolute Neuts (auto) 4.3, Absolute Lymphs (auto) 1.81, Nucleated RBC % 0 01/05/22 04:38: Sodium 138, Potassium 4.0, Chloride 106, Carbon Dioxide 28.0, Anion Gap 4 L, BUN 32 H, Creatinine 1.25, Estim Creat Clear Calc 69.44, Est GFR (MDRD) Af Amer 74, Est GFR (MDRD) Non-Af 61, BUN/Creatinine Ratio 25.6 H, Glucose 180 H, Calcium 8.3 L, Phosphorus 2.5, Magnesium 2.0 01/05/22 07:46: POC Glucose 159 H 01/05/22 10:30: POC Glucose 161 H Micro: Microbiology 01/03/22 15:35 Stool Enteric Bacteriology - Final 01/03/22 15:35 Stool C. difficile GDH Antigen & Toxins - Final 01/03/22 15:35 Stool C. difficile DNA Amplification - Final Physical Exam Const alert, oriented x3 and well nourished Constitutional Narrative: Overweight, upper middle-aged white male sitting up reclining in a chair at the bedside, appears comfortable, nontoxic General Appearance: cooperative HEENT normocephalic, head/scalp atraumatic and moist oral mucous membranes Resp normal respiratory effort, no retractions, no use of accessory muscles and clear to auscultation bilaterally Resp Narrative: Diffusely diminished but clear Auscultation: Negative for crackles, rales, rhonchi or wheezes Cardio regular rate, regular rhythm, S1 normal heart sound, S2 normal heart sound, no murmurs, no rub, no gallops, no clicks and no JVD Cardio Narrative: GI normal to inspection, nondistended, normoactive bowel sounds, soft to palpation and non-tender Extremity no clubbing, cyanosis or edema Extremity Narrative: 2+ pedal pulses Neuro oriented x3, moves all extremities and no focal motor deficits Speech: speech normal Psych affect normal Psych Narrative: Very pleasant and appropriately interactive Assessment & Plan Assessment/Plan (1) Nausea & vomiting: (2) Acute dehydration: (3) BRENNAN (acute kidney injury): (4) Diarrhea: (5) Increased anion gap metabolic acidosis: (6) Hypotension: (7) Sinus tachycardia: (8) Clostridioides difficile infection: PLAN: Plan C. difficile related diarrheal infection -C. difficile toxin and PCR positive -Continue vancomycin oral 125 mg 4 times daily for total of 14 days--> day 2 of 14 -Diet advanced to regular -Discontinue IV fluids -Continue to monitor stool--> diarrhea is much improved Acute kidney injury secondary to dehydration -Baseline serum creatinine appears to be between 0.7 and 1.1 -K eye has almost completely resolved -Serum creatinine was 2.42 on admission and has improved to 1.25 today -Continue to hold home losartan -Continue to hold home diuretics -Patient received 3 total liters bolus of IV fluids on the day of admission -Discontinue IV fluids -Repeat BMP in a.m. DM-2 -Patient is on substantial doses of insulin including Lantus 80 units twice daily and Humalog 80 units 3 times daily -Continue insulin to 60 units twice daily and continue to monitor fasting sugars -We will continue to utilize Humalog 20 units 3 times daily with meals and monitor blood sugars -Sliding scale -Accu-Cheks -Hold home Victoza CAD/HTN/HPL/ischemic cardiomyopathy/history of nonsustained VT -Continue home atorvastatin -continue carvedilol with hold parameters for blood pressure and heart rate -Continue to hold home losartan -Continue to hold Lasix -Patient is status post CABG 1999/stent placement 2005 with BMS -HFrEF is currently compensated -Last echo is from 03/10/2020 and demonstrate an EF of 40% with mild to moderate global left ventricular dysfunction and global hypokinesis along with akinesis in the inferior basal region and posterior basal region of the LV -Monitor respiratory status closely with aggressive hydration due to dehydration -Patient has ICD COPD -Continue home inhalers History of DVT/PE -Continue Xarelto Obesity -BMI 30.4 -Recommend weight loss -Complicates treatment, prognosis, outcomes DVT prophylaxis -Xarelto CODE STATUS -Full code is verified prior to admission Charges/Coding Visit Charges Inpatient E&M: 53699 Subs Hosp L2
--- NOTE | 2022-01-05 13:19 | CASEMGMT ---
[facility]OB[facility] cost of liquid Vancom[facility]. Medication is non-formulary and will cost $220. Hospitalist updated regarding cost.
[2022-01-05] MEDS: oxyCODONE 5 MG Tablet PO (16:26)
[2022-01-05] MEDS: Rivaroxaban 20 MG Tablet PO (16:26)
[2022-01-05 16:45] LABS: Bedside Glucose 272 mg/dL (74-106)
[2022-01-05] MEDS: traZODone 50 MG Tablet PO (22:19)
[2022-01-05] MEDS: Atorvastatin Calcium 80 MG Tablet PO (22:19)
[2022-01-05] MEDS: hydrOXYzine PAM 25 MG Capsule 50 MG PO (22:19)
[2022-01-05 22:45] LABS: Bedside Glucose 225 mg/dL (74-106)
[2022-01-05] MEDS: Ipratropium/Albuterol Sulfate 3 ML AMPUL.NEB INHALATION (22:52)
[2022-01-06 04:17] VITALS: BP 109/43; PULSE 71; RESP 18; TEMP 36.4; O2SAT 96
[2022-01-06 04:20] VITALS: BP 109/43; PULSE 71; RESP 18; TEMP 36.4; O2SAT 96
[2022-01-06] MEDS: Vancomycin 125 MG/5 ML Susp PO.SYRINGE PO ×2 (05:35→12:10)
[2022-01-06 06:12] LABS: Anion Gap 4 (5-15); BUN 26 mg/dL (7-18); BUN/Creat Ratio 24.1 RATIO (10-20); Calcium,Total 8.8 mg/dL (8.5-10.1); Chloride 107 mmol/L (98-107); Creatinine, Serum 1.08 mg/dL (0.70-1.30); EST Glomerular Filtration Rate 72 mL/min (>60); Est Glom Filt Rate - Afr Amer 87 mL/min (>60); Estimated Creatinine Clearance 80.37 ml/min; Glucose 219 mg/dL (74-106); Potassium 4.2 mmol/L (3.5-5.1); Sodium Level 138 mmol/L (136-145)
[2022-01-06 08:20] VITALS: BP 133/62; PULSE 96; RESP 18; TEMP 36.4; O2SAT 96
[2022-01-06] MEDS: Insulin Lispro 100 UNIT/ML INSULN.PEN SC (08:27)
[2022-01-06] MEDS: Carvedilol 6.25 MG Tablet PO (08:29)
[2022-01-06] MEDS: Insulin Lispro 100 UNIT/ML INSULN.PEN 30 UNIT SC (08:29)
[2022-01-06] MEDS: 0.9% Saline Lock 10 ML Syringe IV (08:38)
[2022-01-06] MEDS: Insulin Glargine-YFGN 100 UNIT/ML Pen 80 UNIT SC (08:50)
[2022-01-06] MEDS: oxyCODONE 5 MG Tablet PO (08:52)
[2022-01-06 09:25] LABS: Bedside Glucose 199 mg/dL (74-106)
[2022-01-06 10:00] VITALS: BP 133/62; PULSE 96; RESP 18; TEMP 36.4; O2SAT 96
--- NOTE | 2022-01-06 10:27 | PCM.DC.SUM ---
Providers Date of Admission: 01/04/22 Date of Discharge: 01/06/22 Primary Care Physician: Dr. Bulmaro Garcia MD Reason For Visit: INTRACTABLE NAUSEA/VOMITING Diagnosis Discharge Diagnosis (1) Nausea & vomiting: Status: Resolved Code(s): R11.2 - Nausea with vomiting, unspecified (2) Acute dehydration: Status: Resolved Code(s): E86.0 - Dehydration (3) BRENNAN (acute kidney injury): Status: Acute Code(s): N17.9 - Acute kidney failure, unspecified (4) Diarrhea: Status: Acute Code(s): R19.7 - Diarrhea, unspecified (5) Increased anion gap metabolic acidosis: Status: Resolved Code(s): E87.29 - Other acidosis (6) Hypotension: Status: Resolved Code(s): I95.9 - Hypotension, unspecified (7) Sinus tachycardia: Status: Resolved Code(s): R00.0 - Tachycardia, unspecified (8) Clostridioides difficile infection: Status: Acute Code(s): A49.8 - Other bacterial infections of unspecified site Medications at Discharge Home Medications atorvastatin 80 mg tablet 80 mg PO DAILY cholesterol 10/05/13 nitroglycerin 0.4 mg sublingual tablet 0.4 mg sublingual Q5M PRN Angina pain #25 tabs 10/14/13 albuterol sulfate 90 mcg/actuation aerosol inhaler 6.7 g IH Q4H PRN PRN COPD 07/22/16 hydroxyzine HCl 50 mg tablet 50 mg PO QHS sleep 03/14/17 losartan 50 mg tablet 50 mg PO DAILY blood pressure 02/01/18 trazodone 50 mg tablet 50 mg PO QHS sleep 02/25/20 Levocetirizine Dihydrochloride 5 mg PO QHS sleep 05/31/20 carvedilol 6.25 mg tablet 6.25 mg PO BID blood pressure 05/31/20 furosemide 40 mg tablet 40 mg PO DAILY diuretic 05/31/20 oxycodone-acetaminophen 5 mg-325 mg tablet 1 tablet PO Q4H PRN Pain Score 1-10 05/31/20 umeclidinium 62.5 mcg-vilanterol 25 mcg/actuation powdr for inhalation 1 puff PO DAILY COPD 05/31/20 insulin glargine 100 unit/mL (3 mL) subcutaneous pen (Lantus Solostar U-100 Insulin) 80 units (0.8 mL) subcut BID 30 days #48 mL 01/25/21 insulin lispro 100 unit/mL subcutaneous pen (Humalog KwikPen (U-100) Insulin) 90 unit subcut TIDCM 12/31/21 ezetimibe 10 mg tablet 10 mg PO DAILY 01/03/22 ondansetron 4 mg disintegrating tablet 4 mg PO Q6H PRN nausea and vomiting #7 tabs 01/03/22 rivaroxaban 20 mg tablet (Xarelto) 20 mg PO DAILY 01/03/22 vancomycin 125 mg capsule 125 mg PO Q6H 12 days #48 caps 01/06/22 Hospital Course Operations None Procedures EKG Summary of Care Provided Minutes Spent on Discharge: 38 Hospital Course: Mr. Meier is a 66-year-old male who presented to the emergency department [facility] on 01/03/2022 complaining of intractable nausea, vomiting, and diarrhea. The patient had presented the previous night with nausea vomiting and was discharged after p.o. challenge which she tolerated well. The patient at this admission indicating he got home and started having profuse nausea and vomiting and then developed diarrhea. He indicated that he had some constipation for approximately 1 week prior and then on the day prior to admission developed his nausea and vomiting. He reported he had vomited at least 5-10 times after being discharged home initially from the ER and was not able to keep anything down. He denied any hematemesis, melena, hematochezia and only complained of some mild lower abdominal cramping. He had not been on any recent antibiotics. He denied any fever, chills, or sweats. He reported that his urine has been darker than normal. Vital signs in the emergency department demonstrated a temperature of 97.4, heart rate on presentation was 140, initial blood pressure was 118/69 however this decreased to a floresita of 71/41 at the time of my evaluation at which time I requested a liter bolus be given.? His blood pressure did improve with an improved heart rate as well to 116 and 96/52.? Respirations were anywhere from 14-22 and he is satting 94 to 96% on room air.? His CBC shows a mild leukocytosis and erythrocytosis at 13.5 and 16.6 respectively however I suspect these are hemoconcentrated with his dehydration.? His chemistry panel showed normal electrolytes however his anion gap was 16 his BUN was 39 and his serum creatinine was 2.42.? This is a dramatic change in 8-hour time frame where his anion gap was 7, BUN was 11 and serum creatinine was 0.7 while he was in the emergency department last evening.? His bilirubin is slightly elevated at 1.50 likely due to his dehydration and his LFTs are within normal limits. He was aggressively hydrated given his ongoing blood pressure issues despite his cardiomyopathy and his blood pressure responded well to hydration. Given his marked increase in serum creatinine it is likely that this was just likely due to his severe dehydration. On day 2 of his hospitalization we were able to discontinue IV fluids and he was maintaining hydration without any difficulty. His p.o. intake had improved. On admission so cultures and C. difficile were sent. Enteric panel was negative however C. difficile was positive for toxin and PCR. He was started on vancomycin on 01/04/2022 and will continue this for a total of 14 days. He was discharged home on vancomycin tablets to complete for another 12 days. His creatinine had normalized and his blood pressure was in normal range. We did hold his Lasix and losartan during his hospitalization and I have asked him to hold his Lasix for another week and his losartan for another 5 days. He will continue his carvedilol. All other medications were continued. I request that he follow-up with his primary care physician in the next week to repeat assess his blood pressure given the fact that we are holding his medications for a few days and make sure he is continuing to do well. He was discharged home in stable condition on 01/06/2022. Discharge diagnoses: C. difficile related diarrhea infection Intractable nausea and vomiting-resolved Diarrhea-resolved BRENNAN-resolved Severe dehydration-resolved DM-2 CAD HTN HPL Ischemic cardiomyopathy History of nonsustained VT COPD History of DVT/PE Obesity Physical Exam Narrative No further diarrhea since initiation of vancomycin. Patient indicates he is feeling much better however does not have much of an appetite yet. He has been able to eat regular food without any problem. He does admit to being a bit gassy. Const alert, oriented x3, healthy appearing and well nourished Constitutional Narrative: Overweight, upper middle-aged white male sitting up bed watching TV, appears comfortable, nontoxic, patient indicates he is feeling a lot better and ready to go home General Appearance: cooperative, comfortable, well kempt and well developed Orientation / Consciousness: awake, oriented to person, oriented to place and oriented to time Exam Limitations: no limitations Nutritional Appearance: obese HEENT normocephalic, head/scalp atraumatic and moist oral mucous membranes HEENT Narrative: Moderate hearing loss, dentition is poor, Mallampati is 3, no thrush Eyes PERRL, EOMs intact bilaterally and conjunctivae normal Eyes Narrative: No scleral icterus Neck no lymphadenopathy and supple Neck Narrative: Trachea midline, no thyroid enlargement Resp normal respiratory effort, no retractions, no use of accessory muscles and clear to auscultation bilaterally Resp Narrative: Diffusely diminished but clear Auscultation: Negative for crackles, rales, rhonchi or wheezes Cardio regular rate, regular rhythm, S1 normal heart sound, S2 normal heart sound, no murmurs, no rub, no gallops, no clicks and no JVD Cardio Narrative: GI normal to inspection, nondistended, normoactive bowel sounds, soft to palpation and non-tender Extremity no clubbing, cyanosis or edema Extremity Narrative: 2+ pedal pulses Skin no wounds, skin turgor normal, no jaundice, no petechiae and no mottling Skin Narrative: Few scattered ecchymosis from needle sticks for blood draws Neuro oriented x3, CN's II-XII intact bilaterally, moves all extremities, no focal motor deficits and No no sensory deficits noted Neuro Narrative: Decreased sensation bilateral distal lower extremities, very minimal generalized weakness with proximal musculature being weaker than distal Speech: speech normal Psych affect normal Psych Narrative: Very pleasant and appropriately interactive, joking and much more playful with interaction today Weight / BMI Weight Weight: 115.5 kg Body Mass Index (BMI) 30.0 ABG / Lab / Microbiology Data Result Diagrams: 01/05/22 04:38 01/06/22 04:43 Laboratory: Laboratory Results - last 24 hr 01/05/22 10:30: POC Glucose 161 H 01/05/22 16:21: POC Glucose 272 H 01/05/22 22:06: POC Glucose 225 H 01/06/22 04:43: Sodium 138, Potassium 4.2, Chloride 107, Carbon Dioxide 27.0, Anion Gap 4 L, BUN 26 H, Creatinine 1.08, Estim Creat Clear Calc 80.37, Est GFR (MDRD) Af Amer 87, Est GFR (MDRD) Non-Af 72, BUN/Creatinine Ratio 24.1 H, Glucose 219 H, Calcium 8.8 01/06/22 08:19: POC Glucose 199 H Microbiology: Microbiology 01/03/22 15:35 Stool Enteric Bacteriology - Final 01/03/22 15:35 Stool C. difficile GDH Antigen & Toxins - Final 01/03/22 15:35 Stool C. difficile DNA Amplification - Final Meaningful Use Info Meaningful Use Diagnoses (Choose all that apply): None applicable Discharge Plan Admission Admit Date/Time: 01/04/22 10:25 Primary Reason for Your Visit: Diarrhea/nausea and vomiting Attending Provider: Velia Bright Primary Care Provider: Bulmaro Garcia Instructions Patient Instructions: C diff, C. Diff Prevent Infection, Clostridium Difficile Infection Discharge Orders/Prescriptions Prescriptions: New vancomycin 125 mg capsule 125 mg PO Q6H 12 Days Qty: 48 0RF Continued hydroxyzine HCl 50 mg tablet 50 mg PO QHS atorvastatin 80 MG tablet 80 mg PO DAILY Label Comments: LOWERS CHOLESTEROL nitroglycerin 0.4 MG tablet 0.4 mg sublingual Q5M PRN (Reason: Angina pain ) Qty: 25 0RF Label Comments: chest pain trazodone 50 mg tablet 50 mg PO QHS albuterol sulfate 6.7 GM HFA aerosol inhaler 6.7 g IH Q4H PRN PRN (Reason: COPD) umeclidinium-vilanterol 1 EACH blister with device 1 puff PO DAILY Label Comments: inhale 1 (ONE) puff BY MOUTH EVERY DAY oxycodone-acetaminophen 1 TABLET tablet 1 tablet PO Q4H PRN (Reason: Pain Score 1-10) Levocetirizine Dihydrochloride 5 mg PO QHS carvedilol 6.25 MG tablet 6.25 mg PO BID insulin glargine [Lantus Solostar U-100 Insulin] 100 unit/mL (3 mL) Insulin Pen 80 units subcut BID 30 Days Qty: 48 0RF insulin lispro [Humalog KwikPen Insulin] 100 unit/mL insulin pen 90 unit subcut TIDCM ondansetron 4 mg tablet,disintegrating 4 mg PO Q6H PRN (Reason: nausea and vomiting) Qty: 7 0RF ezetimibe 10 mg tablet 10 mg PO DAILY Xarelto 20 mg tablet 20 mg PO DAILY Held losartan 50 mg tablet 50 mg PO DAILY Hold Instructions: Restart in 5 days furosemide 40 MG tablet 40 mg PO DAILY Hold Instructions: Restart in 1 week Label Comments: diuretic Referrals / Follow Up: Bulmaro Garcia MD [Primary Care Provider] - In 1 Week Disposition Disposition (needs filled in before D/C Order can be placed): Home, Self Care Charges/Coding Visit Charges Inpatient E&M: 21357 Disch Hosp
--- NOTE | 2022-01-06 11:46 | CASEMGMT ---
Addendum entered by Haily Lowery 01/06/22 13:50: Due to uncertainty of prior auth, this RN CM asked charge nurse if pt could get 4 pills to take home but then pt was discharged prior to obtaining. Call to pt to update and see if he could just buy 4 pills to get him till tomorrow or come back and get pills. Pt states he just spoke with pharmacy and they told him the auth went thru and he has no co-pay. Pt voices no further questions/concerns/needs. Mary WEBER CM Original Note: Per [facility], pt needs a prior auth for the Vancomycin capsules. Call to [employer] and prior auth started, expedited. Per rep, approval could take [address] Deangelo holden. Mary WEBER CM
--- NOTE | 2022-01-06 11:57 | PHA.DC.MC ---
Pharmacy Service has performed discharge medication reconciliation and counseling for this patient. The patient was counseled on the following discharge medications and changes in medications for homegoing were reviewed. 1. VANCOMYCIN The Reason for Use, instructions for use, and potential side effects were reviewed for all new medications. The patient's questions regarding all of their medications were answered. The patient was able to verbally demonstrate an understanding of their discharge medications. Home Medications atorvastatin 80 mg tablet 80 mg PO DAILY cholesterol 10/05/13 nitroglycerin 0.4 mg sublingual tablet 0.4 mg sublingual Q5M PRN Angina pain #25 tabs 10/14/13 albuterol sulfate 90 mcg/actuation aerosol inhaler 6.7 g IH Q4H PRN PRN COPD 07/22/16 hydroxyzine HCl 50 mg tablet 50 mg PO QHS sleep 03/14/17 losartan 50 mg tablet 50 mg PO DAILY blood pressure 02/01/18 trazodone 50 mg tablet 50 mg PO QHS sleep 02/25/20 Levocetirizine Dihydrochloride 5 mg PO QHS sleep 05/31/20 carvedilol 6.25 mg tablet 6.25 mg PO BID blood pressure 05/31/20 furosemide 40 mg tablet 40 mg PO DAILY diuretic 05/31/20 oxycodone-acetaminophen 5 mg-325 mg tablet 1 tablet PO Q4H PRN Pain Score 1-10 05/31/20 umeclidinium 62.5 mcg-vilanterol 25 mcg/actuation powdr for inhalation 1 puff PO DAILY COPD 05/31/20 insulin glargine 100 unit/mL (3 mL) subcutaneous pen (Lantus Solostar U-100 Insulin) 80 units (0.8 mL) subcut BID 30 days #48 mL 01/25/21 insulin lispro 100 unit/mL subcutaneous pen (Humalog KwikPen (U-100) Insulin) 90 unit subcut TIDCM 12/31/21 ezetimibe 10 mg tablet 10 mg PO DAILY 01/03/22 ondansetron 4 mg disintegrating tablet 4 mg PO Q6H PRN nausea and vomiting #7 tabs 01/03/22 rivaroxaban 20 mg tablet (Xarelto) 20 mg PO DAILY 01/03/22 vancomycin 125 mg capsule 125 mg PO Q6H 12 days #48 caps 01/06/22 The patient's discharge medication list was reviewed for discrepancies and discrepancies were resolved. Counselled by Roxi Silveira PharmD Candidate
[2022-01-06 12:25] LABS: Bedside Glucose 153 mg/dL (74-106)
== END 2022-01-06 12:59 | disposition home or self-care (01) | DRG 372 ==
LOC: ED 08:42 → PCU 09:21
PROVIDERS: Admitting Provider Internal Medicine; Emergency Provider Emergency Medicine; PCP Family Medicine; Visit Provider Internal Medicine
DX: A04.72 Enterocolitis due to Clostridium difficile, not specified as recurrent (principal); I13.0 Hypertensive heart and chronic kidney disease with heart failure and stage 1 through stage 4 chronic kidney disease, or unspecified chronic kidney disease; E87.20 Acidosis, unspecified; N17.9 Acute kidney failure, unspecified; I50.22 Chronic systolic (congestive) heart failure; E11.22 Type 2 diabetes mellitus with diabetic chronic kidney disease; I95.9 Hypotension, unspecified; J44.9 Chronic obstructive pulmonary disease, unspecified; Z79.4 Long term (current) use of insulin; E11.51 Type 2 diabetes mellitus with diabetic peripheral angiopathy without gangrene; E11.65 Type 2 diabetes mellitus with hyperglycemia; E86.0 Dehydration; I25.5 Ischemic cardiomyopathy; I25.10 Atherosclerotic heart disease of native coronary artery without angina pectoris; N18.9 Chronic kidney disease, unspecified; E78.5 Hyperlipidemia, unspecified; Z87.891 Personal history of nicotine dependence; Z68.30 Body mass index [BMI] 30.0-30.9, adult; E66.9 Obesity, unspecified; Z79.01 Long term (current) use of anticoagulants
CPT/HCPCS: 36415; 80048; 80053; 81002; 82962; 83735; 84100; 84443; 85025; 87493; 87506; 93005; 94640; 97162; 97166; 97802; 99284; 99285; J7030; J7040; J7120; A4216; J2405

== ENCOUNTER → 2022-01-10 | Outpatient (CLI) | payer MEDICARE, MEDICAID, SELFPAY ==
[2022-01-10 12:07] LABS: Absolute Lymphocyte Count 1.59 X10^3/uL (0.83-4.51); Basophil# 0.04 X10^3/uL; Basophil% 0.6 % (0-1); Eosinophil# 0.09 X10^3/uL; Eosinophils% 1.4 % (0-5); Hematocrit 42.4 % (40-54); Hemoglobin 14.4 g/dL (13.0-16.5); Lymphocyte # 1.59 X10^3/ul (0.83-4.51); Lymphocyte % 24.1 % (19-41); Mean Corpuscular Hgb 29.9 pg (27.0-32.0); Monocyte# 0.65 X10^3/uL; Monocyte% 9.9 % (0-10); NRBC Flagged by Analyzer 0 % (0-5); Neutrophil # 4.01 X10^3/uL (2.7-7.7); Neutrophil % 60.8 % (47-70); Platelet Count 151 K/mm3 (150-450); RBC Distribution Width CV 14.6 % (11.6-14.6); RBC Distribution Width SD 47.2 fl (35.1-43.9); Red Blood Count 4.82 M/mm3 (4.6-6.2); White Blood Count 6.6 K/mm3 (4.4-11.0)
[2022-01-10 12:28] LABS: ALB/GLOB Ratio 0.8 RATIO (0.9-2.4); AST(SGOT) 12 U/L (15-37); Alanine Aminotransfer ALT/SGPT 23 U/L (16-61); Albumin, Serum 3.2 g/dL (3.2-5.0); Alkaline Phosphatase 70 U/L (45-117); Anion Gap 5 (5-15); BUN 16 mg/dL (7-18); BUN/Creat Ratio 14.2 RATIO (10-20); Calcium,Total 9.2 mg/dL (8.5-10.1); Chloride 103 mmol/L (98-107); Creatinine, Serum 1.13 mg/dL (0.70-1.30); EST Glomerular Filtration Rate 69 mL/min (>60); Est Glom Filt Rate - Afr Amer 83 mL/min (>60); Globulin 3.9 g/dL (2.2-4.2); Glucose 248 mg/dL (74-106); Magnesium 1.9 mg/dL (1.6-2.6); Potassium 4.7 mmol/L (3.5-5.1); Protein, Total 7.1 g/dL (6.4-8.2); Sodium Level 137 mmol/L (136-145)
[2022-01-10 12:29] LABS: Hemoglobin A1c 7.3 % (3.8-5.6)
== END | disposition home or self-care (01) ==
LOC: MTLAB 09:58
PROVIDERS: PCP Family Medicine; Referring Provider Family Medicine; Visit Provider Family Medicine
DX: M10.9 Gout, unspecified (principal); A04.72 Enterocolitis due to Clostridium difficile, not specified as recurrent
CPT/HCPCS: 36415; 80053; 83036; 83735; 84550; 85025

== ENCOUNTER 2022-03-06 08:47 | Emergency (ER) | payer MEDICARE, MEDICAID, SELFPAY ==
[2022-03-06] VITALS (9 sets, daily range): BP systolic 141–155; BP diastolic 73–83; PULSE 79–99; RESP 12–22; TEMP 36–36.7; O2SAT 92–97; BMI 30.4
--- NOTE | 2022-03-06 09:05 | EKG12_ITS ---
Test Reason : SOB Blood Pressure : / mmHG Vent. Rate : 094 BPM Atrial Rate : 094 BPM P-R Int : 186 ms QRS Dur : 116 ms QT Int : 406 ms P-R-T Axes : 021 086 -55 degrees QTc Int : 507 ms Sinus rhythm with occasional Premature ventricular complexes and Fusion complexes Possible Left atrial enlargement Nonspecific ST and T wave abnormality Prolonged QT Abnormal ECG Confirmed by NELLY OLIVA, AB ([id number]), makeup editor VERONIKA THURSTON ([id number]) on 03/07/2022 9:38:08 AM Referred By: YANICK Confirmed By:AB VILLEGAS MD
--- NOTE | 2022-03-06 09:06 | EDS_ITS ---
HPI History of Present Illness Chief Complaint: Shortness of Breath Detail of Chief Complaint: Shortness of breath that started 5 days ago Informant: patient Narrative Narrative: Patient presents with cough and shortness of breath x5 days. Patient's had fever at home up to 102. Patient coughing up some phlegm at times but mostly clear. He denies chest pain just soreness from coughing. Patient does have history of COPD but does not wear home O2. He does not use inhalers at home. Patient also with history of coronary artery disease and had two-vessel CABG in 2003. Patient has not had the COVID-vaccine but states he had COVID about 2 years ago. Patient did get the flu vaccine. He denies sick contacts. He denies recent travel or surgery. Patient currently on Xarelto for history of DVT and PE. [facility] Medical History (Updated 03/06/22 @ 10:[address] Justine Javier, ) Atherosclerosis of gray[place] coronary artery of [place] heart without angina pectoris Chronic kidney disease Claudication Clostridioides difficile infection Constipation COPD (chronic obstructive pulmonary disease) DVT (deep venous thrombosis) Effusion, right knee Essential (primary) hypertension Gout of right knee History of non-ST elevation myocardial infarction (NSTEMI) (10/11/13) Hyperglycemia due to type 2 diabetes mellitus Hyperlipidemia IBS (irritable bowel syndrome) Ischemic cardiomyopathy NSVT (nonsustained ventricular tachycardia) Obesity Old inferior wall myocardial infarction (02/27/05) Pseudogout of right knee Pulmonary embolism (09/2013) Right knee pain Secondary pulmonary arterial hypertension Type 2 diabetes mellitus Home Medications atorvastatin 80 mg tablet 80 mg PO DAILY cholesterol 10/05/13 [History Last Taken 01/21/21] nitroglycerin 0.4 mg sublingual tablet 0.4 mg sublingual Q5M PRN Angina pain #25 tabs 10/14/13 [Rx Last Taken Unknown] albuterol sulfate 90 mcg/actuation aerosol inhaler 6.7 g IH Q4H PRN PRN COPD 07/22/16 [History Last Taken 05/31/20] hydroxyzine HCl 50 mg tablet 50 mg PO QHS sleep 03/14/17 [History Last Taken 01/21/21] losartan 50 mg tablet 50 mg PO DAILY blood pressure 02/01/18 [History Last Taken 01/21/21] trazodone 50 mg tablet 50 mg PO QHS sleep 02/25/20 [History Last Taken 01/21/21] Levocetirizine Dihydrochloride 5 mg PO QHS sleep 05/31/20 [History Last Taken 1 03/24/20] carvedilol 6.25 mg tablet 6.25 mg PO BID blood pressure 05/31/20 [History Last Taken 01/21/21] furosemide 40 mg tablet 40 mg PO DAILY diuretic 05/31/20 [History Last Taken 01/21/21] oxycodone-acetaminophen 5 mg-325 mg tablet 1 tablet PO Q4H PRN Pain Score 1-10 05/31/20 [History Last Taken 05/31/20] umeclidinium 62.5 mcg-vilanterol 25 mcg/actuation powdr for inhalation 1 puff PO DAILY COPD 05/31/20 [History Last Taken 01/21/21] insulin glargine 100 unit/mL (3 mL) subcutaneous pen (Lantus Solostar U-100 Insulin) 80 units (0.8 mL) subcut BID 30 days #48 mL 01/25/21 [Rx Last Taken Unknown] insulin lispro 100 unit/mL subcutaneous pen (Humalog KwikPen (U-100) Insulin) 90 unit subcut TIDCM 12/31/21 [History Last Taken Unknown] ezetimibe 10 mg tablet 10 mg PO DAILY 01/03/22 [History Last Taken Unknown] ondansetron 4 mg disintegrating tablet 4 mg PO Q6H PRN nausea and vomiting #7 tabs 01/03/22 [Rx Last Taken Unknown] rivaroxaban 20 mg tablet (Xarelto) 20 mg PO DAILY 01/03/22 [History Last Taken Unknown] allopurinol 100 mg tablet 100 mg PO BID 03/06/22 [History Last Taken Unknown] prednisone 20 mg tablet 20 mg PO BID 5 days #10 tabs 03/06/22 [Rx Last Taken Unknown] Allergy/AdvReac Type Severity Reaction Status Date / Time No Known Allergies Allergy Verified 03/06/22 08:47 Family History Father CAD (coronary artery disease) Diabetes Brother CAD (coronary artery disease) Diabetes Mother Cancer Leukemia Brother Diabetes Surgical History H/O coronary artery bypass surgery (04/18/99) History of cholecystectomy History of coronary artery stent placement (02/27/05) History of implantable cardiac defibrillator (ICD) (02/07/18) History of left heart catheterization (10/13/13) Hx of cataract extraction Social History (Updated 01/03/22 @ 11:[address] Velia Bright, DO) Smoking Status: Former smoker pack-years: 39 second hand exposure: No alcohol intake: former substance use type: does not use caffeine: Yes (1/day) what type of physical activity do you participate in: none ROS ROS ED Review of Systems ROS Unobtainable: other Constitutional Constitutional ED: Reports lethargy; Denies chills, fever(s), sweats or weight loss Eyes Eyes: Denies blurry vision, change in vision or diplopia ENT ENT ED: Denies rhinorrhea or sore throat Cardiovascular Cardiovascular: Denies chest pain, orthopnea or racing heartbeat Respiratory/Chest Respiratory/Chest: Reports cough, dyspnea, dyspnea on exertion and sputum; Denies orthopnea Gastrointestinal Gastrointestinal: Denies abdominal pain, diarrhea, nausea or vomiting Genitourinary Genitourinary ED: Denies dysuria, hematuria or urinary frequency Musculoskeletal Musculoskeletal: Denies arthralgias, back pain, myalgias or neck pain Integumentary Denies abscess, Abrasions or rash Neurologic Neurologic: Denies headache(s) or weakness Psychiatric Psychiatric: Denies anxiety, depression or suicidal thoughts Endocrine Endocrinology: Denies polydipsia, polyphagia or polyuria Hematologic/Lymphatic Hematologic/Lymphatic: Denies easy bleeding, easy bruising or lymphadenopathy Allergic/Immunologic Allergic/Immunologic ED: Denies mouth swelling, tongue swelling or urticaria EXAM Physical Exam Const Vital Signs: 03/06/22 08:48 03/06/22 08:50 03/06/22 08:55 Temperature 96.8 F L 97.2 F L Temperature Source Temporal Temporal Pulse Rate 98 94 Respiratory Rate 22 H 18 Respiratory Effort Short of Breath Labored Accessory Muscle Use Respiratory Depth Normal Respiratory Pattern Normal Blood Pressure 141/83 H 149/78 H Blood Pressure Mean 102 101 Pulse Ox 95 94 Oxygen Delivery Method Room Air Room Air Room Air 03/06/22 09:17 03/06/22 09:50 Temperature 97.3 F L Temperature Source Temporal Pulse Rate 92 99 Respiratory Rate 12 20 H Respiratory Effort Respiratory Depth Respiratory Pattern Normal Blood Pressure 155/76 H Blood Pressure Mean 102 Pulse Ox 92 Oxygen Delivery Method Room Air Positive well nourished and well developed General Appearance ED: well developed and NAD HEENT Reports TM's clear and moist mucous membranes normocephalic and atraumatic; Negative for trauma or tenderness Tympanic Membrane ED: Yes TM's clear Eyes PERRL and EOMs intact bilaterally General Eye ED: Negative for pale conjunctiva or scleral icterus Neck no lymphadenopathy, supple and no JVD General: Negative for tenderness Chest Wall inspection of chest normal and palpation of chest normal Chest: Negative for tenderness Resp Resp Narrative: Mild tachypnea. No sensory muscle use or retractions. No conversational dyspnea. Patient has expiratory wheezes bilaterally with slightly diminished breath sounds bilaterally. Effort and Inspection: Negative for respiratory distress or pain with movement Auscultation: wheezes and diminished lung sounds; Negative for rhonchi Cardio regular rate, regular rhythm, S1 normal heart sound, S2 normal heart sound and no murmurs Peripheral Pulses: pulses 2+ throughout GI normal to inspection, nondistended, normoactive bowel sounds, soft to palpation, non-tender, non-distended and no masses Back/Spine no CVA tenderness and no thoracic nor lumbar tenderness Extremity normal to inspection General Extremety ED: Negative for edema General Extremity: Negative for edema Neuro oriented x3, CN's II-XII intact bilaterally, no sensory deficits noted and gait normal Sensorium / Orientation: awake, alert, oriented to person, oriented to place and oriented to time Motor Exam: strength 5/5 throughout and strength abnormal Psych mental status grossly normal Skin no rashes or lesions noted and no wounds MDM MDM MDM Narrative Medical decision making narrative: IV line established on arrival. Patient placed on monitoring and evaluation advisor. Patient was noted to have a sinus rhythm with a rate in the 90s. Patient was given DuoNeb aerosol and albuterol aerosols as well as Solu-Medrol 125 mg IV. Lab work-up was unremarkable. Troponin was negative. In the differential was pneumonia versus CHF versus COPD versus viral illness with reactive airway disease. I considered acute coronary syndrome although I feel this is much less likely. After treatments. Patient did feel somewhat improved but continues to have some wheezing. He did ambulate in the department and had no associated hypoxemia. I feel patient can be discharged to home with albuterol MDI and prescription for prednisone. His rapid flu and COVID were negative. Patient advised to follow- up with his primary care physician within next 3 to 5 days. He is to return if increasing shortness of breath or condition should worsen anyway. Clinically I suspect he likely has a viral URI with reactive airway disease and exacerbation of his COPD. Lab Data Attestation: I reviewed the patient's lab results. Labs: Laboratory Results - last 24 hr 03/06/22 03/06/22 09:20 09:20 WBC 6.3 RBC 5.05 Hgb 14.8 Hct 44.3 MCV 87.7 MCH 29.3 MCHC 33.4 RDW Std Deviation 49.5 H RDW Coeff of Eula 15.6 H Plt Count 145 L MPV 10.8 Immature Gran % (Auto) 0.600 Neut % (Auto) 59.5 Lymph % (Auto) 26.9 Centre % (Auto) 10.4 H Eos % (Auto) 2.1 Baso % (Auto) 0.5 Absolute Neuts (auto) 3.8 Absolute Lymphs (auto) 1.70 Nucleated RBC % 0 Sodium 135 L Potassium 4.0 Chloride 99 Carbon Dioxide 30.0 Anion Gap 6 BUN 26 H Creatinine 1.37 H Estim Creat Clear Calc 63.36 Est GFR (MDRD) Af Amer 66 Est GFR (MDRD) Non-Af 55 L BUN/Creatinine Ratio 19.0 Glucose 265 H Calcium 9.5 Troponin I High Sens 50 Radiography Chest X-Ray - ED: 1 View Diagnostic Testin view chest x-ray obtained interpreted by myself as cardiomegaly with no acute infiltrate or pulmonary congestion or effusions noted. There was evidence of p rior sternotomy wires. Radiology in agreement. EKG Initial EKG: Attestation: I personally reviewed and interpreted this EKG as follows: Comments: Sinus rhythm with ventricular rate of 94 bpm with occasional PVCs and nonspecific ST changes noted anteriorly. Prior EKG tracings: available for review Prior: Unchanged Discharge Plan Triage Chief Complaint: Shortness of Breath ED Provider: Justine Javier Dx/Rx/DC Orders Clinical Impression: Viral URI, COPD exacerbation Instructions: ED COPD Flare, ED URI, Viral W/ Wheezing (Adult) Prescriptions: New prednisone 20 mg tablet 20 mg PO BID 5 Days Qty: 10 0RF No Action hydroxyzine HCl 50 mg tablet 50 mg PO QHS losartan 50 mg tablet 50 mg PO DAILY Hold Instructions: Restart in 5 days atorvastatin 80 MG tablet 80 mg PO DAILY Label Comments: LOWERS CHOLESTEROL nitroglycerin 0.4 MG tablet 0.4 mg sublingual Q5M PRN (Reason: Angina pain ) Qty: 25 0RF Label Comments: chest pain trazodone 50 mg tablet 50 mg PO QHS albuterol sulfate 6.7 GM HFA aerosol inhaler 6.7 g IH Q4H PRN PRN (Reason: COPD) umeclidinium-vilanterol 1 EACH blister with device 1 puff PO DAILY Label Comments: inhale 1 (ONE) puff BY MOUTH EVERY DAY oxycodone-acetaminophen 1 TABLET tablet 1 tablet PO Q4H PRN (Reason: Pain Score 1-10) Levocetirizine Dihydrochloride 5 mg PO QHS furosemide 40 MG tablet 40 mg PO DAILY Hold Instructions: Restart in 1 week Label Comments: diuretic carvedilol 6.25 MG tablet 6.25 mg PO BID insulin glargine [Lantus Solostar U-100 Insulin] 100 unit/mL (3 mL) Insulin Pen 80 units subcut BID 30 Days Qty: 48 0RF insulin lispro [Humalog KwikPen Insulin] 100 unit/mL insulin pen 90 unit subcut TIDCM ondansetron 4 mg tablet,disintegrating 4 mg PO Q6H PRN (Reason: nausea and vomiting) Qty: 7 0RF ezetimibe 10 mg tablet 10 mg PO DAILY Xarelto 20 mg tablet 20 mg PO DAILY allopurinol 100 mg tablet 100 mg PO BID Label Comments: TAKE 1 TABLET BY MOUTH TWICE DAILY Primary Care Provider: Bulmaro Garcia Referrals: Bulmaro Garcia MD [Primary Care Provider] - 3-5 Days Disposition Disposition: Home, Self Care
[2022-03-06] MEDS: Albuterol 2.5 MG/3 ML VIAL.NEB. INHALATION ×3 (09:14)
[2022-03-06] MEDS: Ipratropium/Albuterol Sulfate 3 ML AMPUL.NEB INHALATION (09:14)
[2022-03-06 09:40] LABS: Absolute Neutrophil Count 3.8 X10^3/uL (2.0-7.7); Basophil# 0.03 X10^3/uL; Basophil% 0.5 % (0-1); Eosinophil# 0.13 X10^3/uL; Eosinophils% 2.1 % (0-5); Hematocrit 44.3 % (40-54); Hemoglobin 14.8 g/dL (13.0-16.5); Lymphocyte % 26.9 % (19-41); Mean Corp Hgb Conc 33.4 g/dL (32-36); Mean Corpuscular Hgb 29.3 pg (27.0-32.0); Mean Corpuscular Volume 87.7 fL (80-94); Mean Platelet Vol. 10.8 fl (6.2-12.0); Monocyte# 0.66 X10^3/uL; Monocyte% 10.4 % (0-10); NRBC Flagged by Analyzer 0 % (0-5); Neutrophil # 3.77 X10^3/uL (2.7-7.7); Neutrophil % 59.5 % (47-70); Platelet Count 145 K/mm3 (150-450); RBC Distribution Width CV 15.6 % (11.6-14.6); RBC Distribution Width SD 49.5 fl (35.1-43.9); Red Blood Count 5.05 M/mm3 (4.6-6.2); White Blood Count 6.3 K/mm3 (4.4-11.0)
--- NOTE | 2022-03-06 09:48 | RAD_ITS ---
STUDY: X-RAY CHEST REASON FOR EXAM: Male, 66 years old. Dyspnea TECHNIQUE: Single AP portable view of the chest. COMPARISON: Comparison is made with prior study of 12/31/2021. FINDINGS: EKG electrodes are seen. Hyperinflation. The lungs are clear. There is no demonstrated pleural abnormality. Sternal cerclage wires and vascular clips are present from a prior sternotomy and coronary artery bypass graft procedure (CABG). Cardiomegaly. A left-sided unipolar pacemaker is seen. Normal mediastinum and satish. Normal visualized pulmonary arteries. Normal visualized aortic arch and descending thoracic aorta. Normal visualized thoracic spine. Normal visualized ribs, clavicles, and shoulders. There is no demonstrated abnormality of the visualized soft tissue structures of the upper abdomen. RAD/Chest 1 View (Portable) IMPRESSION: Cardiomegaly. The lungs are clear. Electronically Signed: Sami Valdes MD at 10:28 [facility] ,
[2022-03-06] MEDS: MethylPREDNISolone 125 MG/2 ML Vial IV (09:49)
[2022-03-06] MEDS: 0.9% Normal Saline 1,000 ML 150 ML IV (09:49)
[2022-03-06 09:58] LABS: Anion Gap 6 (5-15); BUN 26 mg/dL (7-18); Calcium,Total 9.5 mg/dL (8.5-10.1); Chloride 99 mmol/L (98-107); Creatinine, Serum 1.37 mg/dL (0.70-1.30); EST Glomerular Filtration Rate 55 mL/min (>60); Est Glom Filt Rate - Afr Amer 66 mL/min (>60); Estimated Creatinine Clearance 63.36 ml/min; Glucose 265 mg/dL (74-106); Sodium Level 135 mmol/L (136-145); Troponin-I HS 50 pg/mL (3.0-78.0)
[2022-03-06 10:36] LABS: Lactic Acid 2.6 mmol/L (0.4-1.9)
[2022-03-06] MEDS: Albuterol Sulfate 8 gm Inhaler (60 puffs) 2 PUFF INHALATION (11:25)
[2022-03-06 13:30] LABS: Reflex Lactate? Y
--- NOTE | 2022-03-07 10:03 | ED.RN ---
THIS RN CONTACTED PT LISTED PHONE NUMBER [phone] TO INFORM PT OF BLOOD CULTURE RESULTS. PT DID NOT ANSWER. THIS RN LEFT A VOICE MESSAGE WITH CALL BACK NUMBER.
--- NOTE | 2022-03-07 10:06 | ED.RN ---
PT CALLS BACK TO THE ED, CONFIMRS NAME AND BIRTHDAY. PT INFORMED OF BLOOD CULTURE RESULTS AND THAT PRESCRIPTION FOR AUGMENTIN WAS SENT TO [facility]. PT EDUCATED TO TAKE ANTIBIOTIC PRESCRIPTION UNTIL COMPLETED AND FOLLOW UP WITH PRIMARY CARE
== END 2022-03-06 11:28 | disposition home or self-care (01) ==
PROVIDERS: Emergency Provider Emergency Medicine; PCP Family Medicine; Visit Provider Emergency Medicine
DX: J06.9 Acute upper respiratory infection, unspecified (principal); J44.1 Chronic obstructive pulmonary disease with (acute) exacerbation; E11.22 Type 2 diabetes mellitus with diabetic chronic kidney disease; E78.5 Hyperlipidemia, unspecified; I25.5 Ischemic cardiomyopathy; Z87.891 Personal history of nicotine dependence; N18.9 Chronic kidney disease, unspecified; I12.9 Hypertensive chronic kidney disease with stage 1 through stage 4 chronic kidney disease, or unspecified chronic kidney disease; I25.10 Atherosclerotic heart disease of native coronary artery without angina pectoris; Z95.1 Presence of aortocoronary bypass graft; Z86.16 Personal history of COVID-19; I25.2 Old myocardial infarction; Z86.718 Personal history of other venous thrombosis and embolism
CPT/HCPCS: 71045; 80048; 83605; 84484; 85025; 87040; 87428; 93005; 94640; 96361; 96374; 99284; J7030; A4216

== ENCOUNTER → 2022-04-03 | Outpatient (CLI) | payer MEDICARE, MEDICAID, SELFPAY ==
[2022-04-03 18:56] LABS: Amphetamine Urine VISTA NEGATIVE (<1000 ng/mL); Barbiturate Urine VISTA NEGATIVE (< 200 ng/mL); Benzodiazepine Urine VISTA NEGATIVE (< 200 ng/mL); Cocaine Urine VISTA NEGATIVE (< 300 ng/mL); Ecstacy Urine VISTA NEGATIVE (< 500 ng/mL); Methadone Urine VISTA NEGATIVE (< 300 ng/mL); PCP Urine VISTA NEGATIVE (< 25 ng/mL); THC Urine VISTA NEGATIVE (< 50 ng/mL); Vista UDS pH Range 5
== END | disposition home or self-care (01) ==
LOC: MFPLAB 15:29
PROVIDERS: PCP Family Medicine; Visit Provider Family Medicine
DX: G89.4 Chronic pain syndrome (principal)
CPT/HCPCS: 80307

== ENCOUNTER 2022-10-13 13:41 | Emergency (ER) | payer MEDICARE, MEDICAID, SELFPAY ==
[2022-10-13 13:42] VITALS: BP 100/56; PULSE 81; RESP 18; TEMP 36; O2SAT 98; BMI 29.9
== END 2022-10-13 15:30 | disposition left against medical advice (07) ==
LOC: ED 15:34
PROVIDERS: PCP Family Medicine
DX: T81.89XA Other complications of procedures, not elsewhere classified, initial encounter (principal)

== ENCOUNTER → 2022-10-17 | Outpatient (CLI) | payer MEDICARE, MEDICAID, SELFPAY ==
[2022-10-17 17:30] LABS: Absolute Lymphocyte Count 2.41 X10^3/uL (0.83-4.51); Absolute Neutrophil Count 9.4 X10^3/uL (2.0-7.7); Basophil# 0.06 X10^3/uL; Basophil% 0.5 % (0-1); Eosinophil# 0.16 X10^3/uL; Eosinophils% 1.2 % (0-5); Hematocrit 46.9 % (40-54); Hemoglobin 15.4 g/dL (13.0-16.5); Lymphocyte # 2.41 X10^3/ul (0.83-4.51); Lymphocyte % 18.5 % (19-41); Mean Corp Hgb Conc 32.8 g/dL (32-36); Mean Corpuscular Hgb 29.1 pg (27.0-32.0); Mean Corpuscular Volume 88.7 fL (80-94); Mean Platelet Vol. 11.1 fl (6.2-12.0); Monocyte# 0.96 X10^3/uL; Monocyte% 7.4 % (0-10); NRBC Flagged by Analyzer 0 % (0-5); Neutrophil # 9.38 X10^3/uL (2.7-7.7); Neutrophil % 71.8 % (47-70); Platelet Count 230 K/mm3 (150-450); RBC Distribution Width CV 14.8 % (11.6-14.6); RBC Distribution Width SD 47.7 fl (35.1-43.9); Red Blood Count 5.29 M/mm3 (4.6-6.2); White Blood Count 13.1 K/mm3 (4.4-11.0)
[2022-10-17 18:45] LABS: Hepatitis C Antibody Non-Reactive (Nonreactive)
[2022-10-17 18:49] LABS: ALB/GLOB Ratio 0.8 RATIO (0.9-2.4); AST(SGOT) 26 U/L (15-37); Alanine Aminotransfer ALT/SGPT 30 U/L (16-61); Alkaline Phosphatase 101 U/L (45-117); Anion Gap 9 (5-15); BUN 13 mg/dL (7-18); BUN/Creat Ratio 11.3 RATIO (10-20); CRP 7.83 mg/L (0.0-3.0); Calcium,Total 9.1 mg/dL (8.5-10.1); Chloride 97 mmol/L (98-107); Creatinine, Serum 1.15 mg/dL (0.70-1.30); EST Glomerular Filtration Rate 67 mL/min (>60); Est Glom Filt Rate - Afr Amer 81 mL/min (>60); Globulin 3.8 g/dL (2.2-4.2); Glucose 300 mg/dL (74-106); Potassium 4.2 mmol/L (3.5-5.1); Protein, Total 6.8 g/dL (6.4-8.2); Sodium Level 134 mmol/L (136-145)
== END | disposition home or self-care (01) ==
LOC: MFPLAB 14:35
PROVIDERS: PCP Family Medicine; Visit Provider Family Medicine
DX: Z11.59 Encounter for screening for other viral diseases (principal); E11.40 Type 2 diabetes mellitus with diabetic neuropathy, unspecified; I99.8 Other disorder of circulatory system
CPT/HCPCS: 36415; 80053; 85025; 86140; 86803

== ENCOUNTER 2022-12-02 10:59 | Inpatient (IN) | payer MEDICARE, SELFPAY ==
[2022-12-02 11:00] VITALS: BP 115/67; PULSE 100; RESP 16; TEMP 36.8; O2SAT 93; BMI 28.9
--- NOTE | 2022-12-02 11:09 | CT_ITS ---
STUDY: CT ABDOMEN AND PELVIS WITH CONTRAST - URINARY TRACT REASON FOR EXAM: Male, 67 years old. abdominal pain RADIATION DOSAGE (If Supplied By Facility): CTDIvol = ( 14.63 ) mGy, DLP = ( 1203.52 ) mGycm TECHNIQUE: IV 100mL Isovue-370 was administered. Transaxial images were obtained from the dome of the diaphragm to the symphysis pubis in the arterial, nephrographic and excretory phases. Multiplanar coronal and sagittal images were reformatted. Individualized Dose Optimization Techniques Were Used For This CT. COMPARISON: CT 01/22/2021. FINDINGS: The visualized lung bases are unremarkable. The visualized portions of the heart are within normal limits. Bibasilar infiltrates have resolved. Normal liver. Status post cholecystectomy. Normal spleen. Pancreatic atrophy likely age-related. Normal bilateral adrenal glands. Normal visualized stomach. Normal small intestine. Fluid is again noted throughout the colon suggesting diarrhea. This appears stable. The appendix is visualized and appears normal. Normal abdominal aorta. No retroperitoneal adenopathy. Normal right kidney. Normal left kidney. Normal urinary bladder. Enlarged prostate with dystrophic calcifications inferiorly. Normal abdominal wall. 5-S1 grade 2 spondylol[address]hesis with bilateral sp[address]ylolysis. CT/Abdomen/Pelvis W IV Cont ONLY IMPRESSION: Interval resolution of bibasilar infiltrates. Fluid throughout nondistended colon consistent with diarrhea. Status post cholecystectomy. Pancreatic atrophy likely age-related. L5-S1 grade 2 spondylolisthesis with bilateral spondylolysis. Electronically Signed: Ross Tran MD at 12:43 EDT ,
--- NOTE | 2022-12-02 11:16 | EX.ED.DYSGE1 ---
HPI <QUYNH Duarte - Last Filed: 12/02/22 20:57> History of Present Illness Chief Complaint: Nausea/Vomiting Narrative Narrative: Presenting today with concerns that he has C. difficile. He had C. difficile about a year ago that did resolve but was recently on an 8-week course of two different antibiotics due to an infected toe after being admitted to [facility] due to a toe infection. He is unsure what antibiotics he was on. He reports that he has been having several bouts of foul-smelling diarrhea over the past week and today has had nausea and several episodes of vomiting. He reports that his abdomen feels like it is, on fire. Previous abdominal surgeries include cholecystectomy. He denies any fever, chills, urinary symptoms, blood in the stool, hematemesis. PMH includes history of CABG, cardiomyopathy, HTN, hyperlipidemia, diabetes mellitus, and COPD. PFSH <QUYNH Duarte - Last Filed: 12/02/22 20:57> PFS Medical History Atherosclerosis of [place] coronary artery of [place] heart without angina pectoris Chronic kidney disease Claudication Clostridioides difficile infection Constipation COPD (chronic obstructive pulmonary disease) DVT (deep venous thrombosis) Effusion, right knee Essential (primary) hypertension Gout of right knee History of non-ST elevation myocardial infarction (NSTEMI) (10/11/13) Hyperglycemia due to type 2 diabetes mellitus Hyperlipidemia IBS (irritable bowel syndrome) Ischemic cardiomyopathy NSVT (nonsustained ventricular tachycardia) Obesity Old inferior wall myocardial infarction (02/27/05) Pseudogout of right knee Pulmonary embolism (09/2013) Right knee pain Secondary pulmonary arterial hypertension Type 2 diabetes mellitus Home Medications atorvastatin 80 mg tablet 80 mg PO DAILY cholesterol 10/05/13 [History Last Taken 12/01/22] nitroglycerin 0.4 mg sublingual tablet 0.4 mg sublingual Q5M PRN Angina pain #25 tabs 10/14/13 [Rx Last Taken Unknown] albuterol sulfate 90 mcg/actuation aerosol inhaler 6.7 g IH Q4H PRN PRN COPD 07/22/16 [History Last Taken 12/02/22] hydroxyzine HCl 50 mg tablet 50 mg PO QHS sleep 03/14/17 [History Last Taken 12/01/22] losartan 50 mg tablet 50 mg PO DAILY blood pressure 02/01/18 [History Last Taken 12/01/22] trazodone 50 mg tablet 50 mg PO QHS sleep 02/25/20 [History Last Taken 12/01/22] Levocetirizine Dihydrochloride 5 mg PO QHS sleep 05/31/20 [History Last Taken 12/01/22] carvedilol 6.25 mg tablet 6.25 mg PO BID blood pressure 05/31/20 [History Last Taken 12/01/22] furosemide 40 mg tablet 40 mg PO DAILY diuretic 05/31/20 [History Last Taken 12/01/22] oxycodone-acetaminophen 5 mg-325 mg tablet 1 tablet PO Q4H PRN Pain Score 1-10 05/31/20 [History Last Taken 12/01/22] umeclidinium 62.5 mcg-vilanterol 25 mcg/actuation powdr for inhalation 1 puff PO DAILY COPD 05/31/20 [History Last Taken 12/01/22] insulin glargine 100 unit/mL (3 mL) subcutaneous pen (Lantus Solostar U-100 Insulin) 80 units (0.8 mL) subcut BID Diabetes 30 days #48 mL 01/25/21 [Rx Last Taken 12/01/22] insulin lispro 100 unit/mL subcutaneous pen (Humalog KwikPen (U-100) Insulin) 90 unit subcut TIDCM diabetes 12/31/21 [History Last Taken Unknown] ezetimibe 10 mg tablet 10 mg PO DAILY Cholesterol 01/03/22 [History Last Taken Unknown] ondansetron 4 mg disintegrating tablet 4 mg PO Q6H PRN nausea and vomiting #7 tabs 01/03/22 [Rx Last Taken Unknown] rivaroxaban 20 mg tablet (Xarelto) 20 mg PO DAILY hx- DVT 01/03/22 [History Last Taken Unknown] allopurinol 100 mg tablet 100 mg PO BID GOUT 03/06/22 [History Last Taken Unknown] Allergy/AdvReac Type Severity Reaction Status Date / Time No Known Allergies Allergy Verified 03/06/22 08:47 Family History Father CAD (coronary artery disease) Diabetes Brother CAD (coronary artery disease) Diabetes Mother Cancer Leukemia Brother Diabetes Surgical History H/O coronary artery bypass surgery (04/18/99) History of cholecystectomy History of coronary artery stent placement (02/27/05) History of implantable cardiac defibrillator (ICD) (02/07/18) History of left heart catheterization (10/13/13) Hx of cataract extraction Social History Smoking Status: Former smoker pack-years: 39 second hand exposure: No alcohol intake: former substance use type: does not use caffeine: Yes (1/day) what type of physical activity do you participate in: none ROS <QUYNH Duarte - Last Filed: 12/02/22 20:57> ROS ED Constitutional Constitutional ED: Denies chills or fever(s) Cardiovascular Cardiovascular: Denies chest pain Respiratory/Chest Respiratory/Chest: Denies cough or dyspnea Gastrointestinal Gastrointestinal: Reports abdominal pain, diarrhea, nausea and vomiting; Denies melena Genitourinary Genitourinary ED: Denies dysuria, hematuria or urinary urgency Musculoskeletal Musculoskeletal: Denies arthralgias or myalgias Integumentary Denies rash Neurologic Neurologic: Denies weakness EXAM <QUYNH Duarte - Last Filed: 12/02/22 20:57> Physical Exam Const Vital Signs: 12/02/22 11:00 Temperature 98.2 F Temperature Source Oral Pulse Rate 100 Respiratory Rate 16 Blood Pressure 115/67 Blood Pressure Mean 83 Pulse Ox 93 Oxygen Delivery Method Room Air Positive well nourished, well developed and no apparent distress General Appearance ED: well developed HEENT Reports normocephalic and head/scalp atraumatic Mouth ED: Yes moist mucous membranes normal Eyes PERRL and EOMs intact bilaterally Neck full ROM and supple Chest Wall inspection of chest normal Resp normal respiratory effort and clear to auscultation bilaterally Cardio regular rate and regular rhythm GI soft to palpation, non-distended and no masses GI Narrative: Generalized tenderness to palpation without any rigidity, guarding, or peritoneal signs. Back/Spine normal ROM and normal to inspection Extremity normal to inspection and full ROM Neuro oriented x3, CN's II-XII intact bilaterally, moves all extremities, no focal motor deficits and no sensory deficits noted Sensorium / Orientation: awake and alert Psych mental status grossly normal and thought process normal Skin no rashes or lesions noted and no wounds <Dr. Prieto Paz MD - Last Filed: 12/02/22 14:45> Physical Exam Const Vital Signs: 12/02/22 11:00 Temperature 98.2 F Temperature Source Oral Pulse Rate 100 Respiratory Rate 16 Blood Pressure 115/67 Blood Pressure Mean 83 Pulse Ox 93 Oxygen Delivery Method Room Air MDM <QUYNH Duarte - Last Filed: 12/02/22 20:57> [facility] Narrative Medical decision making narrative: Patient presenting today with concerns that he has C. difficile. He had in the past, about a year ago that did resolve. However, he was recently on an 8-week course of 2 different antibiotics for a toe infection. He has had several bouts of foul-smelling diarrhea over the past week and today has had nausea and vomiting. He is actively vomiting on initial examination and does have tenderness to his abdomen diffusely. Labs will be obtained to rule out leukocytosis, anemia, electrolyte abnormality, BRENNAN, and UTI. CT of the abdomen and pelvis will be obtained to rule out intra-abdominal etiology. And we will obtain a stool culture to rule out C. difficile. He has been given IV fluids, Zofran, and morphine for pain. He does have a mild BRENNAN, elevated WBC,. I did discuss admission versus outpatient treatment with patient and he reports that he feels too weak to go home and would like to be admitted. Spoke with the hospitalist and he will be admitted in stable condition and is comfortable with plan. Work-up is consistent with C. difficile, however stool culture is pending. My independent interpretation of the CT scan of the abdomen shows increased fluid in the bowels but no acute process. Final reading is similar. Patient CBC CT does show high white count. This is also consistent with C. difficile colitis. Patient's electrolytes show mild elevation of his BUN and creatinine above his baseline. He also has elevated glucose. He was given IV fluids. Patient's liver function test show mild elevation of alkaline phosphatase but no marked abnormalities. Patient's lipase is normal. Since your and does not show signs of acute infection. Patient has had a week or more of diarrhea. He is now having vomiting generalized weakness. He is getting worse. He has a history of C. difficile colitis with malodorous stool that he recognizes as C. difficile. He also has a high white count that supports this. His final studies are pending. But his exam and work-up is consistent with C. difficile colitis. Due to his overall weakness and vomiting he will be admitted. Lab Data Attestation: I reviewed the patient's lab results. Lab results narrative: WBC 70.99, sodium 135, BUN 20, creatinine 1.57 Labs: Laboratory Results - last 24 hr 12/02/22 12/02/22 11:07 13:09 WBC 17.9 H RBC 5.45 Hgb 16.0 Hct 49.4 MCV 90.6 MCH 29.4 MCHC 32.4 RDW Std Deviation 46.6 H RDW Coeff of [place] 14.5 Plt Count 241 MPV 11.1 Immature Gran % (Auto) 0.400 Neut % (Auto) 84.0 H Lymph % (Auto) 9.3 L [place] % (Auto) 5.5 Eos % (Auto) 0.4 Baso % (Auto) 0.4 Absolute Neuts (auto) 15.0 H Absolute Lymphs (auto) 1.66 Nucleated RBC % 0 Sodium 135 L Potassium 3.9 Chloride 101 Carbon Dioxide 23.0 Anion Gap 11 BUN 20 H Creatinine 1.57 H Estim Creat Clear Calc 54.52 Est GFR (MDRD) Af Amer 57 L Est GFR (MDRD) Non-Af 47 L BUN/Creatinine Ratio 12.7 Glucose 282 H Calcium 10.3 H Total Bilirubin 1.00 AST 14 L ALT 23 Alkaline Phosphatase 146 H Total Protein 8.3 H Albumin 3.9 Globulin 4.4 H Albumin/Globulin Ratio 0.9 Lipase 17 Urine Color Yellow Urine Clarity Clear Urine pH 5.0 Ur Specific [place] 1.015 Urine Protein 15 H Urine Glucose (UA) 50 H Urine Ketones Negative Urine Occult Blood Negative Urine Nitrite Negative Urine Bilirubin Negative Urine Urobilinogen Normal Ur Leukocyte Esterase 25 H Urine RBC 0 SEEN Urine WBC 0-5 SEEN Ur Squamous Epith Cells 0 SEEN Urine Bacteria 0 SEEN Urine Mucus 0 SEEN Radiography Diagnostic Testing: Clinical Impression(s) from Imaging Studies Abdomen/Pelvis CT 12/02/22 11:09 IMPRESSION: Interval resolution of bibasilar infiltrates. Fluid throughout nondistended colon consistent with diarrhea. Status post cholecystectomy. Pancreatic atrophy likely age-related. L5-S1 grade 2 spondylolisthesis with bilateral spondylolysis. Electronically Signed: Ross Tran MD at 12:43 EDT , <Dr. Prieto Paz MD - Last Filed: 12/02/22 14:45> [facility] Narrative Medical decision making narrative: Patient presenting today with concerns that he has C. difficile. He had in the past, about a year ago that did resolve. However, he was recently on an 8-week course of 2 different antibiotics for a toe infection. He has had several bouts of foul-smelling diarrhea over the past week and today has had nausea and vomiting. He is actively vomiting on initial examination and does have tenderness to his abdomen diffusely. Labs will be obtained to rule out leukocytosis, anemia, electrolyte abnormality, BRENNAN, and UTI. CT of the abdomen and pelvis will be obtained to rule out intra-abdominal etiology. And we will obtain a stool culture to rule out C. difficile. He has been given IV fluids, Zofran, and morphine for pain. My independent interpretation of the CT scan of the abdomen shows increased fluid in the bowels but no acute process. Final reading is similar. Patient CBC CT does show high white count. This is also consistent with C. difficile colitis. Patient's electrolytes show mild elevation of his BUN and creatinine above his baseline. He also has elevated glucose. He was given IV fluids. Patient's liver function test show mild elevation of alkaline phosphatase but no marked abnormalities. Patient's lipase is normal. Since your and does not show signs of acute infection. Patient has had a week or more of diarrhea. He is now having vomiting generalized weakness. He is getting worse. He has a history of C. difficile colitis with malodorous stool that he recognizes as C. difficile. He also has a high white count that supports this. His final studies are pending. But his exam and work-up is consistent with C. difficile colitis. Due to his overall weakness and vomiting he will be admitted. Lab Data Labs: Laboratory Results - last 24 hr 12/02/22 12/02/22 11:07 13:09 WBC 17.9 H RBC 5.45 Hgb 16.0 Hct 49.4 MCV 90.6 MCH 29.4 MCHC 32.4 RDW Std Deviation 46.6 H RDW Coeff of [place] 14.5 Plt Count 241 MPV 11.1 Immature Gran % (Auto) 0.400 Neut % (Auto) 84.0 H Lymph % (Auto) 9.3 L [place] % (Auto) 5.5 Eos % (Auto) 0.4 Baso % (Auto) 0.4 Absolute Neuts (auto) 15.0 H Absolute Lymphs (auto) 1.66 Nucleated RBC % 0 Sodium 135 L Potassium 3.9 Chloride 101 Carbon Dioxide 23.0 Anion Gap 11 BUN 20 H Creatinine 1.57 H Estim Creat Clear Calc 54.52 Est GFR (MDRD) Af Amer 57 L Est GFR (MDRD) Non-Af 47 L BUN/Creatinine Ratio 12.7 Glucose 282 H Calcium 10.3 H Total Bilirubin 1.00 AST 14 L ALT 23 Alkaline Phosphatase 146 H Total Protein 8.3 H Albumin 3.9 Globulin 4.4 H Albumin/Globulin Ratio 0.9 Lipase 17 Urine Color Yellow Urine Clarity Clear Urine pH 5.0 Ur Specific [place] 1.015 Urine Protein 15 H Urine Glucose (UA) 50 H Urine Ketones Negative Urine Occult Blood Negative Urine Nitrite Negative Urine Bilirubin Negative Urine Urobilinogen Normal Ur Leukocyte Esterase 25 H Urine RBC 0 SEEN Urine WBC 0-5 SEEN Ur Squamous Epith Cells 0 SEEN Urine Bacteria 0 SEEN Urine Mucus 0 SEEN Radiography Diagnostic Testing: Clinical Impression(s) from Imaging Studies Abdomen/Pelvis CT 12/02/22 11:09 IMPRESSION: Interval resolution of bibasilar infiltrates. Fluid throughout nondistended colon consistent with diarrhea. Status post cholecystectomy. Pancreatic atrophy likely age-related. L5-S1 grade 2 spondylolisthesis with bilateral spondylolysis. Electronically Signed: Ross Tran MD at 12:43 EDT , Management Discussion w/another healthcare provider: Hospitalist Treatment and Re-Evaluation :: I have personally performed a face to face assessment of the patient and have reviewed the RENE Note. I performed a substantive portion of the visit including all aspects of the following. My rubin findings include: History: Patient presents with nausea vomiting diarrhea and concern for C. difficile colitis. Patient had C. difficile about a year ago. He had been doing well. He then developed an infection on his left foot related to his diabetes. He was on 1 course of antibiotics for about 6 weeks and another 1 for about 8 weeks. He finished these about 3 weeks ago. He does not recall the names. It was oral not IV. Now for the last week to 10 days he has had diarrhea. It has been turning very watery. He states it smells just like the diarrhea he had when he had C. difficile. He came in today because he is getting more abdominal cramping and now he is vomiting. No fever. His abdominal pain is more just of a generalized ache. He does feel dehydrated. Exam: Patient awake alert. He does not look toxic but he looks tired. He does look a little bit dry. Of note he is also on Lasix. His lungs are clear. Saturations are normal. Abdomen has mild distention versus some obesity. Bowel sounds sound about normal to slightly increased. There is no focal tenderness on exam though Medical Decision Making: Patient will have blood work. We will also check for C-diff. He will be given IV fluids as he has had decreased intake vomiting diarrhea and looks dehydrated. Discharge Plan Dx/Rx/DC Orders Clinical Impression: Nausea vomiting and diarrhea, Creatinine elevation, Dehydration, History of Clostridioides difficile colitis Disposition Disposition: Acute Care Hospital [facility] Discharge Date/Time: 12/02/22 15:13
[2022-12-02 11:21] LABS: Absolute Lymphocyte Count 1.66 X10^3/uL (0.83-4.51); Basophil# 0.08 X10^3/uL; Basophil% 0.4 % (0-1); Eosinophil# 0.07 X10^3/uL; Eosinophils% 0.4 % (0-5); Hematocrit 49.4 % (40-54); Lymphocyte # 1.66 X10^3/ul (0.83-4.51); Lymphocyte % 9.3 % (19-41); Mean Corp Hgb Conc 32.4 g/dL (32-36); Mean Corpuscular Hgb 29.4 pg (27.0-32.0); Mean Corpuscular Volume 90.6 fL (80-94); Mean Platelet Vol. 11.1 fl (6.2-12.0); Monocyte# 0.99 X10^3/uL; Monocyte% 5.5 % (0-10); NRBC Flagged by Analyzer 0 % (0-5); Neutrophil # 14.99 X10^3/uL (2.7-7.7); Platelet Count 241 K/mm3 (150-450); RBC Distribution Width CV 14.5 % (11.6-14.6); RBC Distribution Width SD 46.6 fl (35.1-43.9); Red Blood Count 5.45 M/mm3 (4.6-6.2); White Blood Count 17.9 K/mm3 (4.4-11.0)
[2022-12-02] MEDS: Ondansetron 4 MG/2 ML Vial IV (11:32)
[2022-12-02] MEDS: 0.9% Normal Saline (1000mL) 1,000 ML 1000 ML IV (11:33)
[2022-12-02 11:44] LABS: ALB/GLOB Ratio 0.9 RATIO (0.9-2.4); AST(SGOT) 14 U/L (15-37); Alanine Aminotransfer ALT/SGPT 23 U/L (16-61); Albumin, Serum 3.9 g/dL (3.2-5.0); Alkaline Phosphatase 146 U/L (45-117); Anion Gap 11 (5-15); BUN 20 mg/dL (7-18); BUN/Creat Ratio 12.7 RATIO (10-20); Calcium,Total 10.3 mg/dL (8.5-10.1); Chloride 101 mmol/L (98-107); Creatinine, Serum 1.57 mg/dL (0.70-1.30); EST Glomerular Filtration Rate 47 mL/min (>60); Est Glom Filt Rate - Afr Amer 57 mL/min (>60); Estimated Creatinine Clearance 54.52 ml/min; Globulin 4.4 g/dL (2.2-4.2); Glucose 282 mg/dL (74-106); Lipase 17 U/L (13-75); Potassium 3.9 mmol/L (3.5-5.1); Protein, Total 8.3 g/dL (6.4-8.2); Sodium Level 135 mmol/L (136-145)
[2022-12-02] MEDS: Morphine 4 MG/ML Syringe IV ×2 (11:47→13:58)
[2022-12-02 13:10] LABS: Bacteria 0 SEEN /hpf (None Seen); Mucous, Urine 0 SEEN /hpf (<or=2+); Red Blood Cells-Urine 0 SEEN /hpf (0-5); Squamous Epithelial Cells - UA 0 SEEN /hpf (0-5)
[2022-12-02 13:17] LABS: Color, Urine Yellow (Yellow); Glucose, Dipstick 50 mg/dl (Normal); Ketone-Dipstick Negative (Negative); Leukocyte Esterase-Dipstick 25 /ul (Negative); Nitrite-Dipstick Negative (Negative); Occult Blood-Urine Negative /ul (Negative); Protein-Dipstick 15 mg/dl (Negative); Specific Gravity, Urine 1.015 (1.002-1.030); Urine Bilirubin Dipstick Negative (Negative); Urine Clarity Clear (Clear); Urine Urobilinogen Normal (Normal)
[2022-12-02 13:32] LABS: White Blood Cells 0-5 SEEN /hpf (0-5)
--- NOTE | 2022-12-02 13:47 | PCM.HP.STD ---
HPI - General General Date of Admission: 12/02/22 HPI Narrative PETE ORTIZ, is a 67 M who presents to the hospital with about 10 days of diarrhea. He says it smells very much like his previous episodes of C. difficile which she had about a year ago. He states that he had a toe infection and had been on 6 weeks of p.o. antibiotics and then the diarrhea began. He came in today because of continued diarrhea but then he also developed nausea and vomiting and was unable to hold anything down. Stool studies are pending, and C. difficile is pending. His white is elevated at 18 with an BRENNAN as his baseline creatinine is 1 and today present at 1.57. FORMERLY [facility] Medical History Atherosclerosis of [place] coronary artery of [place] heart without angina pectoris Chronic kidney disease Claudication Clostridioides difficile infection Constipation COPD (chronic obstructive pulmonary disease) DVT (deep venous thrombosis) Effusion, right knee Essential (primary) hypertension Gout of right knee History of non-ST elevation myocardial infarction (NSTEMI) (10/11/13) Hyperglycemia due to type 2 diabetes mellitus Hyperlipidemia IBS (irritable bowel syndrome) Ischemic cardiomyopathy NSVT (nonsustained ventricular tachycardia) Obesity Old inferior wall myocardial infarction (02/27/05) Pseudogout of right knee Pulmonary embolism (09/2013) Right knee pain Secondary pulmonary arterial hypertension Type 2 diabetes mellitus Home Medications atorvastatin 80 mg tablet 80 mg PO DAILY cholesterol 10/05/13 [History Last Taken 12/01/22] nitroglycerin 0.4 mg sublingual tablet 0.4 mg sublingual Q5M PRN Angina pain #25 tabs 10/14/13 [Rx Last Taken Unknown] albuterol sulfate 90 mcg/actuation aerosol inhaler 6.7 g IH Q4H PRN PRN COPD 07/22/16 [History Last Taken 12/02/22] hydroxyzine HCl 50 mg tablet 50 mg PO QHS sleep 03/14/17 [History Last Taken 12/01/22] losartan 50 mg tablet 50 mg PO DAILY blood pressure 02/01/18 [History Last Taken 12/01/22] trazodone 50 mg tablet 50 mg PO QHS sleep 02/25/20 [History Last Taken 12/01/22] Levocetirizine Dihydrochloride 5 mg PO QHS sleep 05/31/20 [History Last Taken 12/01/22] carvedilol 6.25 mg tablet 6.25 mg PO BID blood pressure 05/31/20 [History Last Taken 12/01/22] furosemide 40 mg tablet 40 mg PO DAILY diuretic 05/31/20 [History Last Taken 12/01/22] oxycodone-acetaminophen 5 mg-325 mg tablet 1 tablet PO Q4H PRN Pain Score 1-10 05/31/20 [History Last Taken 12/01/22] umeclidinium 62.5 mcg-vilanterol 25 mcg/actuation powdr for inhalation 1 puff PO DAILY COPD 05/31/20 [History Last Taken 12/01/22] insulin glargine 100 unit/mL (3 mL) subcutaneous pen (Lantus Solostar U-100 Insulin) 80 units (0.8 mL) subcut BID Diabetes 30 days #48 mL 01/25/21 [Rx Last Taken 12/01/22] insulin lispro 100 unit/mL subcutaneous pen (Humalog KwikPen (U-100) Insulin) 90 unit subcut TIDCM diabetes 12/31/21 [History Last Taken Unknown] ezetimibe 10 mg tablet 10 mg PO DAILY Cholesterol 01/03/22 [History Last Taken Unknown] ondansetron 4 mg disintegrating tablet 4 mg PO Q6H PRN nausea and vomiting #7 tabs 01/03/22 [Rx Last Taken Unknown] rivaroxaban 20 mg tablet (Xarelto) 20 mg PO DAILY hx- DVT 01/03/22 [History Last Taken Unknown] allopurinol 100 mg tablet 100 mg PO BID GOUT 03/06/22 [History Last Taken Unknown] Allergy/AdvReac Type Severity Reaction Status Date / Time No Known Allergies Allergy Verified 03/06/22 08:47 Family History Father CAD (coronary artery disease) Diabetes Brother CAD (coronary artery disease) Diabetes Mother Cancer Leukemia Brother Diabetes Surgical History H/O coronary artery bypass surgery (04/18/99) History of cholecystectomy History of coronary artery stent placement (02/27/05) History of implantable cardiac defibrillator (ICD) (02/07/18) History of left heart catheterization (10/13/13) Hx of cataract extraction Social History Smoking Status: Former smoker pack-years: 39 second hand exposure: No alcohol intake: former substance use type: does not use caffeine: Yes (1/day) what type of physical activity do you participate in: none ROS Constitutional Constitutional: Denies chills, fatigue, fever(s) or malaise Eyes Eyes: Denies blurry vision ENT HEENT: Denies headache(s) or nasal discharge Cardiovascular Cardiovascular: Denies chest pain, dyspnea on exertion or syncope Respiratory/Chest Respiratory/Chest: Denies cough, shortness of breath at rest or shortness of breath with exertion Gastrointestinal Gastrointestinal: Reports abdominal pain, diarrhea, nausea and vomiting; Denies constipation Genitourinary Genitourinary: Denies dysuria Neurologic Neurologic: Denies focal weakness, numbness or tremor(s) Psychiatric Psychiatric: Denies anxiety or depression Vital Signs Vital Signs Vital Signs: 12/02/22 11:00 Temperature 98.2 F Temperature Source Oral Pulse Rate 100 Respiratory Rate 16 Blood Pressure 115/67 Blood Pressure Mean 83 Pulse Ox 93 Oxygen Delivery Method Room Air Weight Weight: 237 lb 11.2 oz Body Mass Index (BMI) 28.9 Physical Exam Narrative General: Alert, Oriented x3, Cooperative, No apparent distress HEENT: Atraumatic, PERRLA, EOMI, Normocephalic Oral: Dry mucosa Neck: Supple, No JVD Lungs: Clear to auscultation, Normal air movement, No rhonchi, No wheeze, No rales Cardiovascular: Regular rate, Regular Rhythm, Normal S1, Normal S2, No murmurs Abdomen: Soft, mildly tender, Non-Distended, No Hepato-splenomegaly Extremities: No edema, Capillary Refill Less than 3 Seconds Skin: No rashes, No breakdown Musculoskeletal: No Tenderness to Palpation of Joints or Extremities Neurological: Cranial nerves II-XII grossly intact, Motor Exam 5/5 strength throughout, Sensory exam intact to light touch and pain Psych/Mental Status: Normal Affect, Appropriate Results Lab / Micro Data 12/02/22 11:07 12/02/22 11:07 Labs: Laboratory Results - last 24 hr 12/02/22 11:07: WBC 17.9 H, RBC 5.45, Hgb 16.0, Hct 49.4, MCV 90.6, MCH 29.4, MCHC 32.4, RDW Std Deviation 46.6 H, RDW Coeff of [place] 14.5, Plt Count 241, MPV 11.1, Immature Gran % (Auto) 0.400, Neut % (Auto) 84.0 H, Lymph % (Auto) 9.3 L, [place] % (Auto) 5.5, Eos % (Auto) 0.4, Baso % (Auto) 0.4, Absolute Neuts (auto) 15.0 H, Absolute Lymphs (auto) 1.66, Nucleated RBC % 0, Sodium 135 L, Potassium 3.9, Chloride 101, Carbon Dioxide 23.0, Anion Gap 11, BUN 20 H, Creatinine 1.57 H, Estim Creat Clear Calc 54.52, Est GFR (MDRD) Af Amer 57 L, Est GFR (MDRD) Non-Af 47 L, BUN/Creatinine Ratio 12.7, Glucose 282 H, Calcium 10.3 H, Total Bilirubin 1.00, AST 14 L, ALT 23, Alkaline Phosphatase 146 H, Total Protein 8.3 H, Albumin 3.9, Globulin 4.4 H, Albumin/Globulin Ratio 0.9, Lipase 17 12/02/22 13:09: Urine Color Yellow, Urine Clarity Clear, Urine pH 5.0, Ur Specific [place] 1.015, Urine Protein 15 H, Urine Glucose (UA) 50 H, Urine Ketones Negative, Urine Occult Blood Negative, Urine Nitrite Negative, Urine Bilirubin Negative, Urine Urobilinogen Normal, Ur Leukocyte Esterase 25 H, Urine RBC 0 SEEN, Urine WBC 0-5 SEEN, Ur Squamous Epith Cells 0 SEEN, Urine Bacteria 0 SEEN, Urine Mucus 0 SEEN Radiology Impression Abdomen/Pelvis CT 12/02/22 11:09 IMPRESSION: Interval resolution of bibasilar infiltrates. Fluid throughout nondistended colon consistent with diarrhea. Status post cholecystectomy. Pancreatic atrophy likely age-related. L5-S1 grade 2 spondylolisthesis with bilateral spondylolysis. Electronically Signed: Ross Tran MD at 12:43 EDT , Assessment & Plan Assessment/Plan (1) Creatinine elevation: (2) Dehydration: (3) Nausea vomiting and diarrhea: PLAN: Plan 1. BRENNAN due to dehydration from gastroenteritis versus a C. difficile colitis ? He states that he started having diarrhea for about 10 days then developed some nausea and vomiting says that it is similar to his previous C. difficile infection, testing is pending ? Also obtain fecal leukocytes and enteric pathogen panel as well ? Preemptively start him based on his history on p.o. vancomycin ? CT scan does not show any obvious signs of colitis ? Continue with IV fluids 2. Chronic systolic CHF/HTN/HLD/CAD status post CABG #history of nonsustained VT ? Given his IV fluids and his elevated creatinine we will hold his Lasix and losartan ? Can resume his Lipitor and Coreg 3. DM2 ? He is on significant insulin, will decrease his dose ? Accu-Cheks ACHS ? Sliding scale insulin ? We will monitor and make adjustments as necessary 4. History of DVT/PE ? We will continue with his Xarelto 5. COPD ? Not in exacerbation ? Can his home inhalers DVT: Xarelto 76 minutes was spent on direct patient care, including documentation as well as chart review and collaboration with colleagues Charges/Coding Visit Charges Inpatient E&M: 37964 Init Hosp L3
[2022-12-02 14:00] VITALS: BP 120/60; BP 129/60; PULSE 74; PULSE 77; RESP 18; TEMP 37; O2SAT 97
--- NOTE | 2022-12-02 14:00 | NURSING ---
MED SURG KENDALL DIARRHEA, WEAKNESS, VOMITING, HX CDIFF, ELEVATED CREATINE
[2022-12-02 15:26] VITALS: BMI 28.9
[2022-12-02 16:01] VITALS: BP 114/91; PULSE 120; RESP 16; TEMP 38.2; O2SAT 92
[2022-12-02] MEDS: Insulin Lispro 100 UNIT/ML INSULN.PEN SC ×2 (16:12→21:39)
[2022-12-02] MEDS: 0.9% Normal Saline (1000mL) 1,000 ML 100 ML IV (16:15)
[2022-12-02 16:34] LABS: Bedside Glucose 373 mg/dL (74-106)
[2022-12-02 18:03] VITALS: BP 101/57; PULSE 102; RESP 18; TEMP 36.8; O2SAT 97
[2022-12-02] MEDS: Vancomycin 125 MG/5 ML Susp PO.SYRINGE PO (18:03)
[2022-12-02] MEDS: Ipratropium/Albuterol Sulfate 3 ML AMPUL.NEB INHALATION (19:49)
[2022-12-02 19:54] VITALS: PULSE 98; RESP 18
[2022-12-02] MEDS: Insulin Glargine-YFGN 100 UNIT/ML Pen 20 UNIT SC (21:40)
[2022-12-02] MEDS: Allopurinol 100 MG Tablet PO (21:43)
[2022-12-02] MEDS: Carvedilol 6.25 MG Tablet PO (21:43)
[2022-12-02] MEDS: hydrOXYzine PAM 25 MG Capsule 50 MG PO (21:43)
[2022-12-02] MEDS: traZODone 50 MG Tablet PO (21:44)
[2022-12-02] MEDS: Atorvastatin Calcium 80 MG Tablet PO (21:44)
[2022-12-02 22:06] LABS: Bedside Glucose 410 mg/dL (74-106)
[2022-12-02 22:46] VITALS: BP 129/36; PULSE 88; RESP 16; TEMP 37.1; O2SAT 98
[2022-12-03] MEDS: Vancomycin 125 MG/5 ML Susp PO.SYRINGE PO ×5 (00:12→23:17)
[2022-12-03] MEDS: 0.9% Normal Saline (1000mL) 1,000 ML 100 ML IV ×3 (02:20→21:04)
[2022-12-03] MEDS: oxyCODONE 5 MG Tablet PO ×2 (03:00→21:07)
[2022-12-03 06:00] VITALS: BP 101/63; PULSE 73; RESP 16; TEMP 36.7; O2SAT 95
[2022-12-03 07:17] LABS: Absolute Lymphocyte Count 1.88 X10^3/uL (0.83-4.51); Absolute Neutrophil Count 12.1 X10^3/uL (2.0-7.7); Basophil# 0.07 X10^3/uL; Basophil% 0.4 % (0-1); Eosinophil# 0.08 X10^3/uL; Eosinophils% 0.5 % (0-5); Hematocrit 41.5 % (40-54); Hemoglobin 13.3 g/dL (13.0-16.5); Lymphocyte # 1.88 X10^3/ul (0.83-4.51); Lymphocyte % 11.8 % (19-41); Mean Corpuscular Hgb 29.7 pg (27.0-32.0); Mean Corpuscular Volume 92.6 fL (80-94); Monocyte# 1.64 X10^3/uL; Monocyte% 10.3 % (0-10); NRBC Flagged by Analyzer 0 % (0-5); Neutrophil # 12.13 X10^3/uL (2.7-7.7); Neutrophil % 76.4 % (47-70); POSITIVE DIFFERENTIAL YES; Platelet Count 169 K/mm3 (150-450); RBC Distribution Width CV 14.7 % (11.6-14.6); RBC Distribution Width SD 49.1 fl (35.1-43.9); Red Blood Count 4.48 M/mm3 (4.6-6.2); White Blood Count 15.9 K/mm3 (4.4-11.0)
[2022-12-03] MEDS: Ipratropium/Albuterol Sulfate 3 ML AMPUL.NEB INHALATION ×2 (07:29→19:29)
[2022-12-03 07:30] VITALS: PULSE 77; RESP 18
[2022-12-03 07:37] LABS: Anion Gap 5 (5-15); BUN 23 mg/dL (7-18); BUN/Creat Ratio 16.8 RATIO (10-20); Chloride 105 mmol/L (98-107); Creatinine, Serum 1.37 mg/dL (0.70-1.30); EST Glomerular Filtration Rate 55 mL/min (>60); Est Glom Filt Rate - Afr Amer 66 mL/min (>60); Estimated Creatinine Clearance 62.48 ml/min; Glucose 238 mg/dL (74-106); Potassium 4.3 mmol/L (3.5-5.1); Sodium Level 136 mmol/L (136-145)
[2022-12-03 07:44] LABS: Differential Indicated SCAN CRITERIA MET
--- NOTE | 2022-12-03 07:45 | PN.HOSP_ITS ---
Reason for Visit Reason for Visit: Diagnoses Dehydration (12/02/22) Nausea with vomiting, unspecified (12/02/22) Diarrhea, unspecified (12/02/22) Other specified abnormal findings of blood chemistry (12/02/22) Subjective Subjective Patient is a 67-year-old gentleman admitted with diarrhea which started a week prior to his admission. He did develop nausea and vomiting on the morning of his admission Objective Data Objective Data Vital Signs: Vital Signs Temp Pulse Resp BP Pulse Ox O2 Del Method 98.0 F 77 18 101/63 95 Room Air 12/03/22 06:00 12/03/22 07:30 12/03/22 07:30 12/03/22 06:00 12/03/22 06:00 12/03/22 06:00 Oxygen Delivery Method Room Air Weight: 107.819 kg Body Mass Index (BMI) 28.9 Intake & Output: Intake and Output for Last 24 Hours 12/01/22 12/02/22 12/03/22 23:59 23:59 23:59 Intake Total 1000 / 1000 1000 / 1000 Balance 1000 / 1000 1000 / 1000 Lab / Micro Data 12/03/22 06:32 12/03/22 06:32 Labs: Laboratory Results - last 24 hr 12/02/22 11:07: WBC 17.9 H, RBC 5.45, Hgb 16.0, Hct 49.4, MCV 90.6, MCH 29.4, MCHC 32.4, RDW Std Deviation 46.6 H, RDW Coeff of [place] 14.5, Plt Count 241, MPV 11.1, Immature Gran % (Auto) 0.400, Neut % (Auto) 84.0 H, Lymph % (Auto) 9.3 L, [place] % (Auto) 5.5, Eos % (Auto) 0.4, Baso % (Auto) 0.4, Absolute Neuts (auto) 15.0 H, Absolute Lymphs (auto) 1.66, Nucleated RBC % 0, Sodium 135 L, Potassium 3.9, Chloride 101, Carbon Dioxide 23.0, Anion Gap 11, BUN 20 H, Creatinine 1.57 H, Estim Creat Clear Calc 54.52, Est GFR (MDRD) Af Amer 57 L, Est GFR (MDRD) Non-Af 47 L, BUN/Creatinine Ratio 12.7, Glucose 282 H, Calcium 10.3 H, Total Bilirubin 1.00, AST 14 L, ALT 23, Alkaline Phosphatase 146 H, Total Protein 8.3 H, Albumin 3.9, Globulin 4.4 H, Albumin/Globulin Ratio 0.9, Lipase 17 12/02/22 13:09: Urine Color Yellow, Urine Clarity Clear, Urine pH 5.0, Ur Specific [place] 1.015, Urine Protein 15 H, Urine Glucose (UA) 50 H, Urine Ketones Negative, Urine Occult Blood Negative, Urine Nitrite Negative, Urine Bilirubin Negative, Urine Urobilinogen Normal, Ur Leukocyte Esterase 25 H, Urine RBC 0 SEEN, Urine WBC 0-5 SEEN, Ur Squamous Epith Cells 0 SEEN, Urine Bacteria 0 SEEN, Urine Mucus 0 SEEN 12/02/22 16:11: POC Glucose 373 H 12/02/22 21:38: POC Glucose 410 H 12/03/22 06:32: WBC 15.9 H, RBC 4.48 L, Hgb 13.3, Hct 41.5, MCV 92.6, MCH 29.7, MCHC 32.0, RDW Std Deviation 49.1 H, RDW Coeff of [place] 14.7 H, Plt Count 169, MPV 11.0, Immature Gran % (Auto) 0.600, Neut % (Auto) 76.4 H, Lymph % (Auto) 11.8 L, [place] % (Auto) 10.3 H, Eos % (Auto) 0.5, Baso % (Auto) 0.4, Absolute Neuts (auto) 12.1 H, Absolute Lymphs (auto) 1.88, Nucleated RBC % 0, Sodium 136, Potassium 4.3, Chloride 105, Carbon Dioxide 26.0, Anion Gap 5, BUN 23 H, Creatinine 1.37 H , Estim Creat Clear Calc 62.48, Est GFR (MDRD) Af Amer 66, Est GFR (MDRD) Non-Af 55 L, BUN/Creatinine Ratio 16.8, Glucose 238 H, Calcium 9.0 Radiography Diagnostic Testing: Radiology Impression Abdomen/Pelvis CT 12/02/22 11:09 IMPRESSION: Interval resolution of bibasilar infiltrates. Fluid throughout nondistended colon consistent with diarrhea. Status post cholecystectomy. Pancreatic atrophy likely age-related. L5-S1 grade 2 spondylolisthesis with bilateral spondylolysis. Electronically Signed: Ross Tran MD at 12:43 EDT , Physical Exam Narrative GENERAL: cooperative HEENT: Atraumatic; normocephalic EYES; Anicteric, Normal Conjunctiva NECK; supple, normal thyroid, RESPIRATORY: Diminished to auscultation CARDIOVASCULAR: Regular S1 S2, GI: soft, normoactive bowel sounds, : No Renal angle tenderness; EXTREMITIES: No edema, no clubbing, MUSCULOSKELETAL: no muscle wasting NEURO: Awake; no lateralizing signs. SKIN: No Rash PSYCH; Flat affect Assessment & Plan Assessment/Plan (1) Creatinine elevation: (2) Dehydration: (3) Nausea vomiting and diarrhea: PLAN: Plan Patient is a 67-year-old gentleman admitted with diarrhea which started a week prior to his admission. He did develop nausea and vomiting on the morning of his admission 1. Acute gastroenteritis ? Viral versus C. difficile (has history of C. difficile colitis). Admitted to regular nursing floor managed with rehydration stool studies since 2. Acute kidney injury ? Secondary to gastroenteritis. Patient baseline creatinine is 1.08 creatinine on admission was 1.57 started on rehydration with subsequent monitoring of electrolytes ordered 3. Diabetes mellitus type 2 ? Patient is on long-acting insulin did continue her home dose also placed on Ac cu-Cheks before meals and at bedtime with sliding scale coverage 3. Coronary artery disease ? With previous CABG and subsequent stent placement patient is on guideline directed medical therapy 5. Ischemic cardiomyopathy with history of nonsustained polymorphic VT ? Status post AICD placed 6. Hypertension - Blood pressure controlled, home medications continued with dose adjustment as needed 7. Dyslipidemia -Patient is on statin therapy, continued at home dose 8. Gout ? Patient is on allopurinol continue 9. Peripheral arterial disease ? Per history 10. 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 Patient is on Xarelto continue 11. COPD ? Currently not in exacerbation aerosol treatment as needed 12. Chronic congestive heart failure with reduced ejection fraction ?Last known EF of 40%. Currently on beta-blockers as well as furosemide remains compensated 13. DVT prophylaxis ? Already on Xarelto Time spent in the patient's overall evaluation,decision-making process, review of diagnostic data, adjustment of management, discussion with other providers, nursing nursing and ancillary staff involved in patient's care documentation, 52 Minutes Charges/Coding Visit Charges Inpatient E&M: 35043 Subs Hosp L3
[2022-12-03] MEDS: Insulin Lispro 100 UNIT/ML INSULN.PEN SC ×4 (08:55→21:12)
[2022-12-03] MEDS: Insulin Lispro 100 UNIT/ML INSULN.PEN 20 UNIT SC ×3 (08:55→17:38)
[2022-12-03 09:00] VITALS: BP 124/54; PULSE 80; RESP 18; TEMP 36.7; O2SAT 94
[2022-12-03 09:37] LABS: Differential Comment SCANNED
[2022-12-03] MEDS: Flu Vacc QS2023-24(65YR UP)/PF 240 MCG/0.7 ML Syringe IM (11:22)
[2022-12-03] MEDS: Insulin Glargine-YFGN 100 UNIT/ML Pen 20 UNIT SC ×2 (11:23→21:14)
[2022-12-03] MEDS: Ezetimibe 10 MG Tablet PO (11:24)
[2022-12-03] MEDS: Allopurinol 100 MG Tablet PO ×2 (11:24→21:06)
[2022-12-03] MEDS: Carvedilol 6.25 MG Tablet PO ×2 (11:24→21:05)
[2022-12-03 11:50] LABS: Bedside Glucose 215 mg/dL (74-106)
[2022-12-03 11:50] LABS: Bedside Glucose 226 mg/dL (74-106)
[2022-12-03 16:37] LABS: Bedside Glucose 213 mg/dL (74-106)
[2022-12-03] MEDS: Rivaroxaban 20 MG Tablet PO (17:39)
[2022-12-03 17:40] VITALS: BP 103/52; PULSE 80; RESP 16; TEMP 36.6; O2SAT 96
[2022-12-03 19:30] VITALS: PULSE 78; RESP 16
[2022-12-03] MEDS: Atorvastatin Calcium 80 MG Tablet PO (21:05)
[2022-12-03] MEDS: hydrOXYzine PAM 25 MG Capsule 50 MG PO (21:06)
[2022-12-03] MEDS: traZODone 50 MG Tablet PO (21:06)
[2022-12-03 21:15] VITALS: BP 124/52; PULSE 73; RESP 16; TEMP 36.9; O2SAT 94
[2022-12-04 01:04] LABS: Bedside Glucose 196 mg/dL (74-106)
[2022-12-04 05:35] VITALS: BP 112/61; PULSE 70; RESP 16; TEMP 36.7; O2SAT 94
[2022-12-04] MEDS: 0.9% Normal Saline (1000mL) 1,000 ML 100 ML IV ×2 (05:49→15:28)
[2022-12-04] MEDS: Vancomycin 125 MG/5 ML Susp PO.SYRINGE PO ×4 (06:07→23:11)
[2022-12-04 09:00] VITALS: BP 119/68; PULSE 74; RESP 16; TEMP 36.7; O2SAT 95
[2022-12-04] MEDS: Ezetimibe 10 MG Tablet PO (09:03)
[2022-12-04] MEDS: Allopurinol 100 MG Tablet PO ×2 (09:03→21:14)
[2022-12-04] MEDS: Carvedilol 6.25 MG Tablet PO ×2 (09:04→21:13)
[2022-12-04] MEDS: Insulin Lispro 100 UNIT/ML INSULN.PEN SC ×4 (09:07→21:13)
[2022-12-04] MEDS: Insulin Glargine-YFGN 100 UNIT/ML Pen 20 UNIT SC ×2 (09:07→21:14)
[2022-12-04] MEDS: Insulin Lispro 100 UNIT/ML INSULN.PEN 20 UNIT SC ×3 (09:07→17:12)
[2022-12-04] MEDS: oxyCODONE 5 MG Tablet PO ×2 (09:16→21:19)
[2022-12-04 09:26] LABS: Bedside Glucose 217 mg/dL (74-106)
[2022-12-04] MEDS: Ipratropium/Albuterol Sulfate 3 ML AMPUL.NEB INHALATION ×2 (09:29→19:24)
[2022-12-04 09:36] VITALS: PULSE 77; RESP 18
--- NOTE | 2022-12-04 10:59 | PCM.PN.HOSP ---
Reason for Visit Reason for Visit: Diagnoses Dehydration (12/02/22) Nausea with vomiting, unspecified (12/02/22) Diarrhea, unspecified (12/02/22) Other specified abnormal findings of blood chemistry (12/02/22) Subjective Subjective Patient stool for cdiff came back positive Objective Data Objective Data Vital Signs: Vital Signs Temp Pulse Resp BP Pulse Ox O2 Del Method 98.0 F 77 18 119/68 95 Room Air 12/04/22 09:00 12/04/22 09:36 12/04/22 09:36 12/04/22 09:00 12/04/22 09:00 12/04/22 09:00 Oxygen Delivery Method Room Air Weight: 107.819 kg Body Mass Index (BMI) 28.9 Intake & Output: Intake and Output for Last 24 Hours 12/02/22 12/03/22 12/04/22 23:59 23:59 23:59 Intake Total 1000 / 1000 2873.33 / 2873.33 875 / 875 Balance 1000 / 1000 2873.33 / 2873.33 875 / 875 Medical Nutrition Assessment Dietitian: Malnutrition Criteria Met Start: 12/03/22 09:31 Freq: Status: Active Protocol: Document 12/03/22 09:31 AG (Rec: 12/03/22 09:31 AG [id number]) Nutrition Malnutrition Evidence of Malnutrition Exists Yes Malnutrition (severe): Acute Illness/Injury Evidenced By Suboptimal Energy Intake ( Severe),Weight Loss (Severe) Clinical Problem Acute Disease or Injury Related Malnutrition Etiology severe, acute malnutrition related to inadequate energy intake during acute illness Signs/Symptoms as evidenced by unintentional 7.3#/3% wt loss < 2 weeks, estimated PO intake meeting < 50% of estimated energy needs > 5 days Status Active Problem Recommendation Dietitian Recommendations/Changes will adjust diet to cardiac, consistent CHO diet Lab / Micro Data 12/03/22 06:32 12/03/22 06:32 Labs: Laboratory Results - last 24 hr 12/03/22 08:54: POC Glucose 226 H 12/03/22 11:27: POC Glucose 215 H 12/03/22 16:19: POC Glucose 213 H 12/03/22 21:11: POC Glucose 196 H 12/04/22 09:06: POC Glucose 217 H Micro: Microbiology 12/02/22 23:50 Stool C. difficile GDH Antigen & Toxins - Final Toxigenic C. difficile 12/02/22 23:50 Stool C. difficile DNA Amplification - Final 12/02/22 23:50 Stool Stool Lactoferrin - Final 12/02/22 23:50 Stool Enteric Bacteriology - Final Physical Exam Narrative GENERAL: cooperative HEENT: Atraumatic; normocephalic EYES; Anicteric, Normal Conjunctiva NECK; supple, normal thyroid, RESPIRATORY: Diminished to auscultation CARDIOVASCULAR: Regular S1 S2, GI: soft, normoactive bowel sounds, : No Renal angle tenderness; EXTREMITIES: No edema, no clubbing, MUSCULOSKELETAL: no muscle wasting NEURO: Awake; no lateralizing signs. SKIN: No Rash PSYCH; Flat affect Assessment & Plan Assessment/Plan (1) Creatinine elevation: (2) Dehydration: (3) Nausea vomiting and diarrhea: PLAN: Plan Patient is a 67-year-old gentleman admitted with diarrhea which started a week prior to his admission. He did develop nausea and vomiting on the morning of his admission 1. Acute gastroenteritis ? Viral versus C. difficile (has history of C. difficile colitis). Admitted to regular nursing floor managed with rehydration stool studies since - 12/04/2022; Patient stool for cdiff came back positive . On PO Vancomycin 2. Acute kidney injury ? Secondary to gastroenteritis. Patient baseline creatinine is 1.08 creatinine on admission was 1.57 started on rehydration with subsequent monitoring of electrolytes ordered 3. Diabetes mellitus type 2 ? Patient is on long-acting insulin did continue her home dose also placed on Accu-Cheks before meals and at bedtime with sliding scale coverage 3. Coronary artery disease ? With previous CABG and subsequent stent placement patient is on guideline directed medical therapy 5. Ischemic cardiomyopathy with history of nonsustained polymorphic VT ? Status post AICD placed 6. Hypertension - Blood pressure controlled, home medications continued with dose adjustment as needed 7. Dyslipidemia -Patient is on statin therapy, continued at home dose 8. Gout ? Patient is on allopurinol continue 9. Peripheral arterial disease ? Per history 10. 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 Patient is on Xarelto continue 11. COPD ? Currently not in exacerbation aerosol treatment as needed 12. Chronic congestive heart failure with reduced ejection fraction ?Last known EF of 40%. Currently on beta-blockers as well as furosemide remains compensated 13. DVT prophylaxis ? Already on Xarelto Time spent in the patient's overall evaluation,decision-making process, review of diagnostic data, adjustment of management, discussion with other providers, nursing nursing and ancillary staff involved in patient's care documentation, 52 Minutes Charges/Coding Visit Charges Inpatient E&M: 79552 Subs Hosp L2
--- NOTE | 2022-12-04 11:16 | CASEMGMT ---
TIA ESCOBAR Assessment: Face to Face with pt for initial transition planning/care coordination assessment. RN LUZ introduced self and role at [facility], pt voices understanding and consents to assessment. Pt is A&O x4 and answers all questions appropriately at this time. Pt sitting up in bed in no distress. Care providers, pharmacy, and demographics verified/updated. Admitting Dx: cdiff with BRENNAN PCP:Jose Specialists:Kayla, cardio; Anne Marie, pod Preferred Pharmacy: [facility] Insurance: [email or web address] [facility] Prescription Benefit: yes LNOK: Janett Meier dtr; Shereen Blanco dtr Living Arrangements: Pt lives alone in a mobile home with 2-3 steps to enter with a rail. Pt reports he is I in ADL's and denies concerns at home. Transportation: Pt drives self and denies concerns with transportation. DME:grab bars, crutches, walker, BGM with sufficient supply of strips and lancets- Pt denies using AD for ambulation HHC/SNF: Pt denies hx of Pt states no concerns with going home at time of dc. Pt states no further concerns/needs. CM to follow. Advised pt to ask CM if any further question/concerns/needs arise, voices understanding. Pt Goal: Home Plan: Home
[2022-12-04 12:01] LABS: Bedside Glucose 236 mg/dL (74-106)
[2022-12-04 14:41] VITALS: BP 129/64; PULSE 66; RESP 16; TEMP 36.7; O2SAT 95
[2022-12-04] MEDS: Rivaroxaban 20 MG Tablet PO (17:12)
[2022-12-04 17:32] LABS: Bedside Glucose 213 mg/dL (74-106)
[2022-12-04 19:24] VITALS: PULSE 77; RESP 18
[2022-12-04 21:09] VITALS: BP 129/64; PULSE 65; RESP 15; TEMP 36.9; O2SAT 96
[2022-12-04] MEDS: traZODone 50 MG Tablet PO (21:13)
[2022-12-04] MEDS: Atorvastatin Calcium 80 MG Tablet PO (21:14)
[2022-12-04] MEDS: hydrOXYzine PAM 25 MG Capsule 50 MG PO (21:14)
[2022-12-04 21:39] LABS: Bedside Glucose 243 mg/dL (74-106)
[2022-12-05] MEDS: 0.9% Normal Saline (1000mL) 1,000 ML 100 ML IV (01:36)
[2022-12-05] MEDS: Albuterol 2.5 MG/3 ML VIAL.NEB. INHALATION (03:16)
[2022-12-05 03:17] VITALS: PULSE 75; RESP 20
[2022-12-05 03:24] VITALS: BP 146/72; PULSE 77; RESP 18; TEMP 36.9; O2SAT 95
[2022-12-05] MEDS: Vancomycin 125 MG/5 ML Susp PO.SYRINGE PO ×2 (06:17→11:26)
[2022-12-05 07:02] LABS: Absolute Lymphocyte Count 1.83 X10^3/uL (0.83-4.51); Absolute Neutrophil Count 3.9 X10^3/uL (2.0-7.7); Basophil# 0.03 X10^3/uL; Basophil% 0.4 % (0-1); Hematocrit 33.7 % (40-54); Hemoglobin 10.9 g/dL (13.0-16.5); Lymphocyte # 1.83 X10^3/ul (0.83-4.51); Lymphocyte % 27.1 % (19-41); Mean Corp Hgb Conc 32.3 g/dL (32-36); Mean Corpuscular Hgb 29.6 pg (27.0-32.0); Mean Corpuscular Volume 91.6 fL (80-94); Mean Platelet Vol. 10.6 fl (6.2-12.0); Monocyte# 0.72 X10^3/uL; Monocyte% 10.7 % (0-10); NRBC Flagged by Analyzer 0 % (0-5); Neutrophil # 3.92 X10^3/uL (2.7-7.7); Neutrophil % 57.9 % (47-70); Platelet Count 117 K/mm3 (150-450); RBC Distribution Width CV 14.7 % (11.6-14.6); RBC Distribution Width SD 49.1 fl (35.1-43.9); Red Blood Count 3.68 M/mm3 (4.6-6.2); White Blood Count 6.8 K/mm3 (4.4-11.0)
[2022-12-05] MEDS: Ipratropium/Albuterol Sulfate 3 ML AMPUL.NEB INHALATION (07:17)
[2022-12-05 07:18] VITALS: PULSE 76; RESP 17
[2022-12-05 07:27] LABS: Anion Gap 4 (5-15); BUN 13 mg/dL (7-18); Calcium,Total 8.3 mg/dL (8.5-10.1); Chloride 112 mmol/L (98-107); Creatinine, Serum 0.93 mg/dL (0.70-1.30); EST Glomerular Filtration Rate 86 mL/min (>60); Est Glom Filt Rate - Afr Amer 104 mL/min (>60); Estimated Creatinine Clearance 92.04 ml/min; Glucose 266 mg/dL (74-106); Magnesium 1.5 mg/dL (1.6-2.6); Phosphorus 2.7 mg/dL (2.5-4.9); Potassium 4.2 mmol/L (3.5-5.1); Sodium Level 139 mmol/L (136-145)
--- NOTE | 2022-12-05 07:38 | PCM.PN.HOSP ---
Reason for Visit Reason for Visit: Diagnoses Dehydration (12/02/22) Nausea with vomiting, unspecified (12/02/22) Diarrhea, unspecified (12/02/22) Other specified abnormal findings of blood chemistry (12/02/22) Subjective Subjective Patient seen diarrhea has resolved, and was assessed for possible discharge Objective Data Objective Data Vital Signs: Vital Signs Temp Pulse Resp BP Pulse Ox O2 Del Method 98.4 F 76 17 146/72 H 95 Room Air 12/05/22 03:24 12/05/22 07:18 12/05/22 07:18 12/05/22 03:24 12/05/22 03:24 12/05/22 03:24 Oxygen Delivery Method Room Air Weight: 107.819 kg Body Mass Index (BMI) 28.9 Intake & Output: Intake and Output for Last 24 Hours 12/03/22 12/04/22 12/05/22 23:59 23:59 23:59 Intake Total 2873.33 / 2873.33 2080 / 2360 1520 / 1520 Balance 2873.33 / 2873.33 2079 / 2360 1520 / 1520 Medical Nutrition Assessment Dietitian: Malnutrition Criteria Met Start: 12/03/22 09:31 Freq: Status: Active Protocol: Document 12/03/22 09:31 AG (Rec: 12/03/22 09:31 [id number]) Nutrition Malnutrition Evidence of Malnutrition Exists Yes Malnutrition (severe): Acute Illness/Injury Evidenced By Suboptimal Energy Intake ( Severe),Weight Loss (Severe) Clinical Problem Acute Disease or Injury Related Malnutrition Etiology severe, acute malnutrition related to inadequate energy intake during acute illness Signs/Symptoms as evidenced by unintentional 7.3#/3% wt loss < 2 weeks, estimated PO intake meeting < 50% of estimated energy needs > 5 days Status Active Problem Recommendation Dietitian Recommendations/Changes will adjust diet to cardiac, consistent CHO diet Lab / Micro Data 12/05/22 06:45 12/05/22 06:45 Labs: Laboratory Results - last 24 hr 12/04/22 09:06: POC Glucose 217 H 12/04/22 11:31: POC Glucose 236 H 12/04/22 17:10: POC Glucose 213 H 12/04/22 21:12: POC Glucose 243 H 12/05/22 06:45: WBC 6.8, RBC 3.68 L, Hgb 10.9 L, Hct 33.7 L, MCV 91.6, MCH 29.6, MCHC 32.3, RDW Std Deviation 49.1 H, RDW Coeff of Eula 14.7 H, Plt Count 117 L, MPV 10.6, Immature Gran % (Auto) 0.900, Neut % (Auto) 57.9, Lymph % (Auto) 27.1, Bartholomew % (Auto) 10.7 H, Eos % (Auto) 3.0, Baso % (Auto) 0.4, Absolute Neuts (auto) 3.9, Absolute Lymphs (auto) 1.83, Nucleated RBC % 0, Sodium 139, Potassium 4.2, Chloride 112 H, Carbon Dioxide 23.0, Anion Gap 4 L, BUN 13, Creatinine 0.93, Estim Creat Clear Calc 92.04, Est GFR (MDRD) Af Amer 104, Est GFR (MDRD) Non-Af 86, BUN/Creatinine Ratio 14.0, Glucose 266 H, Calcium 8.3 L, Phosphorus 2.7, Magnesium 1.5 L Micro: Microbiology 12/02/22 23:50 Stool C. difficile GDH Antigen & Toxins - Final Toxigenic C. difficile 12/02/22 23:50 Stool C. difficile DNA Amplification - Final 12/02/22 23:50 Stool Stool Lactoferrin - Final 12/02/22 23:50 Stool Enteric Bacteriology - Final Physical Exam Narrative GENERAL: cooperative HEENT: Atraumatic; normocephalic EYES; Anicteric, Normal Conjunctiva NECK; supple, normal thyroid, RESPIRATORY: Diminished to auscultation CARDIOVASCULAR: Regular S1 S2, GI: soft, normoactive bowel sounds, : No Renal angle tenderness; EXTREMITIES: No edema, no clubbing, MUSCULOSKELETAL: no muscle wasting NEURO: Awake; no lateralizing signs. SKIN: No Rash PSYCH; Flat affect Assessment & Plan Assessment/Plan (1) Creatinine elevation: (2) Dehydration: (3) Nausea vomiting and diarrhea: PLAN: Plan Patient is a 67-year-old gentleman admitted with diarrhea which started a week prior to his admission. He did develop nausea and vomiting on the morning of his admission 1. Acute gastroenteritis ? Viral versus C. difficile (has history of C. difficile colitis). Admitted to regular nursing floor managed with rehydration stool studies since - 12/04/2022; Patient stool for cdiff came back positive . On PO Vancomycin ? 12/05/2022 7 patient diarrhea has resolved patient will be discharged home on p.o. Vanco 2. Acute kidney injury ? Secondary to gastroenteritis. Patient baseline creatinine is 1.08 creatinine on admission was 1.57 started on rehydration with subsequent monitoring of electrolytes ordered 3. Diabetes mellitus type 2 ? Patient is on long-acting insulin did continue her home dose also placed on Accu-Cheks before meals and at bedtime with sliding scale coverage 3. Coronary artery disease ? With previous CABG and subsequent stent placement patient is on guideline directed medical therapy 5. Ischemic cardiomyopathy with history of nonsustained polymorphic VT ? Status post AICD placed 6. Hypertension - Blood pressure controlled, home medications continued with dose adjustment as needed 7. Dyslipidemia -Patient is on statin therapy, continued at home dose 8. Gout ? Patient is on allopurinol continue 9. Peripheral arterial disease ? Per history 10. 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 Patient is on Xarelto continue 11. COPD ? Currently not in exacerbation aerosol treatment as needed 12. Chronic congestive heart failure with reduced ejection fraction ?Last known EF of 40%. Currently on beta-blockers as well as furosemide remains compensated 13. DVT prophylaxis ? Already on Xarelto severe acute malnutrition r/t inadequate energy intake during acute illness as evidenced by unintentional wt loss 7.3#/3% < 2 wks, estimated PO intake meeting < 50% of estimated energy needs > 5 days will adjust diet to cardiac, consistent CHO diet. Time spent in the patient's overall evaluation,decision-making process, review of diagnostic data, adjustment of management, discussion with other providers, nursing nursing and ancillary staff involved in patient's care documentation, 35 Charges/Coding Visit Charges Inpatient E&M: 52807 Subs Hosp L2
[2022-12-05 08:29] VITALS: BP 128/62; PULSE 70; RESP 18; TEMP 36.7; O2SAT 97
[2022-12-05] MEDS: Insulin Lispro 100 UNIT/ML INSULN.PEN 20 UNIT SC (08:30)
[2022-12-05] MEDS: Insulin Lispro 100 UNIT/ML INSULN.PEN SC (08:31)
[2022-12-05] MEDS: Carvedilol 6.25 MG Tablet PO (08:32)
[2022-12-05] MEDS: Ezetimibe 10 MG Tablet PO (08:32)
[2022-12-05] MEDS: Allopurinol 100 MG Tablet PO (08:32)
[2022-12-05] MEDS: Insulin Glargine-YFGN 100 UNIT/ML Pen 20 UNIT SC (08:32)
[2022-12-05 08:59] LABS: Bedside Glucose 250 mg/dL (74-106)
--- NOTE | 2022-12-05 09:22 | NURSING ---
respiratory called for prn breathing tx
--- NOTE | 2022-12-05 09:43 | CPS ---
RT was called for a PRN aerosol but pt refused it. Pt says an inhaler helps him, not the aerosols even though it is the same medicine. RT reported this to Jenniffer WEBER.
[2022-12-05 09:55] LABS: Pathologist Review Reviewed
--- NOTE | 2022-12-05 10:49 | PCM.DC.SUM ---
Providers Date of Admission: 12/02/22 Date of Discharge: 12/05/22 Primary Care Physician: Dr. Bulmaro Garcia MD Reason For Visit: CDIFF WITH BRENNAN Diagnosis Discharge Diagnosis (1) Creatinine elevation: Status: Acute Code(s): R79.89 - Other specified abnormal findings of blood chemistry (2) Dehydration: Status: Acute Code(s): E86.0 - Dehydration (3) Nausea vomiting and diarrhea: Status: Acute Code(s): R11.2 - Nausea with vomiting, unspecified; R19.7 - Diarrhea, unspecified Plan Patient is a 67-year-old gentleman admitted with diarrhea which started a week prior to his admission. He did develop nausea and vomiting on the morning of his admission 1. Acute gastroenteritis ? Viral versus C. difficile (has history of C. difficile colitis). Admitted to regular nursing floor managed with rehydration stool studies since - 12/04/2022; Patient stool for cdiff came back positive . On PO Vancomycin ? 12/05/2022 7 patient diarrhea has resolved patient will be discharged home on p.o. Vanco 2. Acute kidney injury ? Secondary to gastroenteritis. Patient baseline creatinine is 1.08 creatinine on admission was 1.57 started on rehydration with subsequent monitoring of electrolytes ordered ? 12/05/2022 acute kidney injury resolved 3. Diabetes mellitus type 2 ? Patient is on long-acting insulin did continue her home dose also placed on Accu-Cheks before meals and at bedtime with sliding scale coverage 3. Coronary artery disease ? With previous CABG and subsequent stent placement patient is on guideline directed medical therapy 5. Ischemic cardiomyopathy with history of nonsustained polymorphic VT ? Status post AICD placed 6. Hypertension - Blood pressure controlled, home medications continued with dose adjustment as needed 7. Dyslipidemia -Patient is on statin therapy, continued at home dose 8. Gout ? Patient is on allopurinol continue 9. Peripheral arterial disease ? Per history 10. 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 Patient is on Xarelto continue 11. COPD ? Currently not in exacerbation aerosol treatment as needed 12. Chronic congestive heart failure with reduced ejection fraction ?Last known EF of 40%. Currently on beta-blockers as well as furosemide remains compensated 13. DVT prophylaxis ? Already on Xarelto 14. Severe acute malnutrition ? r/t inadequate energy intake during acute illness as evidenced by unintentional wt loss 7.3#/3% < 2 wks, estimated PO intake meeting < 50% of estimated energy needs > 5 days will adjust diet to cardiac, consistent CHO diet. 15. Hypomagnesemia ? Corrected per protocol Time spent in the patient's overall evaluation,decision-making process, review of diagnostic data, adjustment of management, discussion with other providers, nursing nursing and ancillary staff involved in patient's care documentation, 35 Medications at Discharge Home Medications atorvastatin 80 mg tablet 80 mg PO DAILY cholesterol 10/05/13 nitroglycerin 0.4 mg sublingual tablet 0.4 mg sublingual Q5M PRN Angina pain #25 tabs 10/14/13 albuterol sulfate 90 mcg/actuation aerosol inhaler 6.7 g IH Q4H PRN PRN COPD 07/22/16 hydroxyzine HCl 50 mg tablet 50 mg PO QHS sleep 03/14/17 losartan 50 mg tablet 50 mg PO DAILY blood pressure 02/01/18 trazodone 50 mg tablet 50 mg PO QHS sleep 02/25/20 Levocetirizine Dihydrochloride 5 mg PO QHS sleep 05/31/20 carvedilol 6.25 mg tablet 6.25 mg PO BID blood pressure 05/31/20 furosemide 40 mg tablet 40 mg PO DAILY diuretic 05/31/20 oxycodone-acetaminophen 5 mg-325 mg tablet 1 tablet PO Q4H PRN Pain Score 1-10 05/31/20 umeclidinium 62.5 mcg-vilanterol 25 mcg/actuation powdr for inhalation 1 puff PO DAILY COPD 05/31/20 insulin glargine 100 unit/mL (3 mL) subcutaneous pen (Lantus Solostar U-100 Insulin) 80 units (0.8 mL) subcut BID Diabetes 30 days #48 mL 01/25/21 insulin lispro 100 unit/mL subcutaneous pen (Humalog KwikPen (U-100) Insulin) 90 unit subcut TIDCM diabetes 12/31/21 ezetimibe 10 mg tablet 10 mg PO DAILY Cholesterol 01/03/22 ondansetron 4 mg disintegrating tablet 4 mg PO Q6H PRN nausea and vomiting #7 tabs 01/03/22 rivaroxaban 20 mg tablet (Xarelto) 20 mg PO DAILY hx- DVT 01/03/22 allopurinol 100 mg tablet 100 mg PO BID GOUT 01/16/23 magnesium chloride 64 mg (magnesium chloride) tablet,delayed release (Mag 64) 64 mg PO BID 30 days #60 tabs 12/05/22 vancomycin 125 mg capsule 125 mg PO Q6H 10 days #40 caps 12/05/22 Hospital Course Summary of Care Provided Minutes Spent on Discharge: 35 Physical Exam Narrative GENERAL: cooperative HEENT: Atraumatic; normocephalic EYES; Anicteric, Normal Conjunctiva NECK; supple, normal thyroid, RESPIRATORY: Diminished to auscultation CARDIOVASCULAR: Regular S1 S2, GI: soft, normoactive bowel sounds, : No Renal angle tenderness; EXTREMITIES: No edema, no clubbing, MUSCULOSKELETAL: no muscle wasting NEURO: Awake; no lateralizing signs. SKIN: No Rash PSYCH; Flat affect Medical Records Data Medical Nutrition Assessment Dietitian: Malnutrition Criteria Met Start: 12/03/22 09:31 Freq: Status: Active Protocol: Document 12/03/22 09:31 (Rec: 12/03/22 09:31 [id number]) Nutrition Malnutrition Evidence of Malnutrition Exists Yes Malnutrition (severe): Acute Illness/Injury Evidenced By Suboptimal Energy Intake ( Severe),Weight Loss (Severe) Clinical Problem Acute Disease or Injury Related Malnutrition Etiology severe, acute malnutrition related to inadequate energy intake during acute illness Signs/Symptoms as evidenced by unintentional 7.3#/3% wt loss < 2 weeks, estimated PO intake meeting < 50% of estimated energy needs > 5 days Status Active Problem Recommendation Dietitian Recommendations/Changes will adjust diet to cardiac, consistent CHO diet Weight / BMI Weight Weight: 107.819 kg Body Mass Index (BMI) 28.9 ABG / Lab / Microbiology Data 12/05/22 06:45 12/05/22 06:45 Laboratory: Laboratory Results - last 24 hr 12/03/22 06:32: Diff Path Review Reviewed 12/04/22 11:31: POC Glucose 236 H 12/04/22 17:10: POC Glucose 213 H 12/04/22 21:12: POC Glucose 243 H 12/05/22 06:45: WBC 6.8, RBC 3.68 L, Hgb 10.9 L, Hct 33.7 L, MCV 91.6, MCH 29.6, MCHC 32.3, RDW Std Deviation 49.1 H, RDW Coeff of Eula 14.7 H, Plt Count 117 L, MPV 10.6, Immature Gran % (Auto) 0.900, Neut % (Auto) 57.9, Lymph % (Auto) 27.1, [place] % (Auto) 10.7 H, Eos % (Auto) 3.0, Baso % (Auto) 0.4, Absolute Neuts (auto) 3.9, Absolute Lymphs (auto) 1.83, Nucleated RBC % 0, Sodium 139, Potassium 4.2, Chloride 112 H, Carbon Dioxide 23.0, Anion Gap 4 L, BUN 13, Creatinine 0.93, Estim Creat Clear Calc 92.04, Est GFR (MDRD) Af Amer 104, Est GFR (MDRD) Non-Af 86, BUN/Creatinine Ratio 14.0, Glucose 266 H, Calcium 8.3 L, Phosphorus 2.7, Magnesium 1.5 L 12/05/22 08:26: POC Glucose 250 H Microbiology: Microbiology 12/02/22 23:50 Stool C. difficile GDH Antigen & Toxins - Final Toxigenic C. difficile 12/02/22 23:50 Stool C. difficile DNA Amplification - Final 12/02/22 23:50 Stool Stool Lactoferrin - Final 12/02/22 23:50 Stool Enteric Bacteriology - Final D/C Instructions Discharge Diet: No restrictions Discharge Activity: Return to Normal Activity Call your doctor if you observe: Fever of 101 or Higher, Shortness of breath, Fainting spells and Chest pain Meaningful Use Info Meaningful Use Diagnoses (Choose all that apply): None applicable Discharge Plan Admission Admit Date/Time: 12/02/22 13:44 Attending Provider: Simón Floyd Primary Care Provider: Bulmaro Garcia Consulting Providers: German Bahena Discharge Orders/Prescriptions Prescriptions: New Mag 64 64 mg Tablet,Delayed Release (Dr/Ec) 64 mg PO BID 30 Days Qty: 60 0RF vancomycin 125 mg capsule 125 mg PO Q6H 10 Days Qty: 40 0RF Continued hydroxyzine HCl 50 mg tablet 50 mg PO QHS losartan 50 mg tablet 50 mg PO DAILY Hold Instructions: Restart in 5 days atorvastatin 80 MG tablet 80 mg PO DAILY Patient Comments: LOWERS CHOLESTEROL nitroglycerin 0.4 MG tablet 0.4 mg sublingual Q5M PRN (Reason: Angina pain ) Qty: 25 0RF Patient Comments: chest pain trazodone 50 mg tablet 50 mg PO QHS albuterol sulfate 6.7 GM HFA aerosol inhaler 6.7 g IH Q4H PRN PRN (Reason: COPD) umeclidinium-vilanterol 1 EACH blister with device 1 puff PO DAILY Patient Comments: inhale 1 (ONE) puff BY MOUTH EVERY DAY oxycodone-acetaminophen 1 TABLET tablet 1 tablet PO Q4H PRN (Reason: Pain Score 1-10) Levocetirizine Dihydrochloride 5 mg PO QHS furosemide 40 MG tablet 40 mg PO DAILY Hold Instructions: Restart in 1 week Patient Comments: diuretic carvedilol 6.25 MG tablet 6.25 mg PO BID insulin glargine [Lantus Solostar U-100 Insulin] 100 unit/mL (3 mL) Insulin Pen 80 units subcut BID 30 Days Qty: 48 0RF insulin lispro [Humalog KwikPen Insulin] 100 unit/mL insulin pen 90 unit subcut TIDCM ondansetron 4 mg tablet,disintegrating 4 mg PO Q6H PRN (Reason: nausea and vomiting) Qty: 7 0RF ezetimibe 10 mg tablet 10 mg PO DAILY Xarelto 20 mg tablet 20 mg PO DAILY allopurinol 100 mg tablet 100 mg PO BID Patient Comments: TAKE 1 TABLET BY MOUTH TWICE DAILY Referrals / Follow Up: Bulmaro Garcia MD [Primary Care Provider] - Within 2 Weeks Disposition Disposition (needs filled in before D/C Order can be placed): Home, Self Care Charges/Coding Visit Charges Inpatient E&M: 01035 Disch Hosp >30min
--- NOTE | 2022-12-05 11:27 | PHA.DC.MC.R ---
Pharmacy [facility] has performed discharge medication reconciliation and counseling for this patient. The patient's discharge medication list was reviewed for discrepancies and discrepancies were resolved. The patient was counseled on the following discharge medications and changes in medications for homegoing were reviewed. The Reason for Use, instructions for use, and potential side effects were reviewed for all new medications. The patient's questions regarding all of their medications were answered. 1. Vancomycin 125 mg PO Q6H x 10 days 2. Magnesium 64 mg PO BID The patient was able to verbally demonstrate an understanding of their discharge medications. Medications at Discharge Home Medications atorvastatin 80 mg tablet 80 mg PO DAILY cholesterol 10/05/13 nitroglycerin 0.4 mg sublingual tablet 0.4 mg sublingual Q5M PRN Angina pain #25 tabs 10/14/13 albuterol sulfate 90 mcg/actuation aerosol inhaler 6.7 g IH Q4H PRN PRN COPD 07/22/16 hydroxyzine HCl 50 mg tablet 50 mg PO QHS sleep 03/14/17 losartan 50 mg tablet 50 mg PO DAILY blood pressure 02/01/18 trazodone 50 mg tablet 50 mg PO QHS sleep 02/25/20 Levocetirizine Dihydrochloride 5 mg PO QHS sleep 05/31/20 carvedilol 6.25 mg tablet 6.25 mg PO BID blood pressure 05/31/20 furosemide 40 mg tablet 40 mg PO DAILY diuretic 05/31/20 oxycodone-acetaminophen 5 mg-325 mg tablet 1 tablet PO Q4H PRN Pain Score 1-10 05/31/20 umeclidinium 62.5 mcg-vilanterol 25 mcg/actuation powdr for inhalation 1 puff PO DAILY COPD 05/31/20 insulin glargine 100 unit/mL (3 mL) subcutaneous pen (Lantus Solostar U-100 Insulin) 80 units (0.8 mL) subcut BID Diabetes 30 days #48 mL 01/25/21 insulin lispro 100 unit/mL subcutaneous pen (Humalog KwikPen (U-100) Insulin) 90 unit subcut TIDCM diabetes 12/31/21 ezetimibe 10 mg tablet 10 mg PO DAILY Cholesterol 01/03/22 ondansetron 4 mg disintegrating tablet 4 mg PO Q6H PRN nausea and vomiting #7 tabs 01/03/22 rivaroxaban 20 mg tablet (Xarelto) 20 mg PO DAILY hx- DVT 01/03/22 allopurinol 100 mg tablet 100 mg PO BID GOUT 03/06/22 magnesium chloride 64 mg (magnesium chloride) tablet,delayed release (Mag 64) 64 mg PO BID 30 days #60 tabs 12/05/22 vancomycin 125 mg capsule 125 mg PO Q6H 10 days #40 caps 12/05/22
[2022-12-05 11:30] LABS: Bedside Glucose 262 mg/dL (74-106)
--- NOTE | 2022-12-05 11:42 | CASEMGMT ---
TC to [facility] Retail pharmacy, spoke with Felipa, there is no cost or PA for vancomycin.
== END 2022-12-05 13:08 | disposition home or self-care (01) | DRG 371 ==
LOC: ED 11:54 → MS3 14:14
PROVIDERS: Physician Assistant; Admitting Provider Family Medicine; Emergency Provider Emergency Medicine; PCP Family Medicine; Visit Provider Internal Medicine
DX: A04.72 Enterocolitis due to Clostridium difficile, not specified as recurrent (principal); E43 Unspecified severe protein-calorie malnutrition; N17.9 Acute kidney failure, unspecified; I13.0 Hypertensive heart and chronic kidney disease with heart failure and stage 1 through stage 4 chronic kidney disease, or unspecified chronic kidney disease; I50.22 Chronic systolic (congestive) heart failure; R18.8 Other ascites; E11.22 Type 2 diabetes mellitus with diabetic chronic kidney disease; E11.51 Type 2 diabetes mellitus with diabetic peripheral angiopathy without gangrene; J44.9 Chronic obstructive pulmonary disease, unspecified; Z79.4 Long term (current) use of insulin; E11.65 Type 2 diabetes mellitus with hyperglycemia; N18.9 Chronic kidney disease, unspecified; E78.5 Hyperlipidemia, unspecified; E86.0 Dehydration; I25.10 Atherosclerotic heart disease of native coronary artery without angina pectoris; M10.9 Gout, unspecified; I25.5 Ischemic cardiomyopathy; Z23 Encounter for immunization; Z87.891 Personal history of nicotine dependence; Z79.01 Long term (current) use of anticoagulants; Z95.5 Presence of coronary angioplasty implant and graft; Z86.718 Personal history of other venous thrombosis and embolism; Z86.711 Personal history of pulmonary embolism; Z68.28 Body mass index [BMI] 28.0-28.9, adult
CPT/HCPCS: 36415; 74177; 80048; 80053; 81001; 82962; 83630; 83690; 83735; 84100; 85025; 87493; 87506; 94640; 97802; 99285; G0008; J7030; Q9967; 90662; A4216; J2405

== ENCOUNTER → 2022-12-21 | Outpatient (CLI) | payer MEDICARE, SELFPAY ==
[2022-12-21 12:24] LABS: Absolute Lymphocyte Count 1.25 X10^3/uL (0.83-4.51); Absolute Neutrophil Count 9.7 X10^3/uL (2.0-7.7); Basophil# 0.07 X10^3/uL; Basophil% 0.6 % (0-1); Eosinophil# 0.14 X10^3/uL; Eosinophils% 1.1 % (0-5); Hematocrit 47.8 % (40-54); Lymphocyte # 1.25 X10^3/ul (0.83-4.51); Mean Corp Hgb Conc 31.4 g/dL (32-36); Mean Corpuscular Hgb 29.4 pg (27.0-32.0); Mean Corpuscular Volume 93.7 fL (80-94); Mean Platelet Vol. 11.5 fl (6.2-12.0); Monocyte# 1.36 X10^3/uL; Monocyte% 10.8 % (0-10); NRBC Flagged by Analyzer 0 % (0-5); Neutrophil % 77.2 % (47-70); Platelet Count 201 K/mm3 (150-450); RBC Distribution Width CV 14.9 % (11.6-14.6); RBC Distribution Width SD 51.6 fl (35.1-43.9); White Blood Count 12.6 K/mm3 (4.4-11.0)
[2022-12-21 12:38] LABS: ALB/GLOB Ratio 0.9 RATIO (0.9-2.4); AST(SGOT) 15 U/L (15-37); Alanine Aminotransfer ALT/SGPT 23 U/L (16-61); Albumin, Serum 3.7 g/dL (3.2-5.0); Alkaline Phosphatase 119 U/L (45-117); Anion Gap 8 (5-15); BUN 24 mg/dL (7-18); BUN/Creat Ratio 17.5 RATIO (10-20); Calcium,Total 9.5 mg/dL (8.5-10.1); Chloride 101 mmol/L (98-107); Creatinine, Serum 1.37 mg/dL (0.70-1.30); EST Glomerular Filtration Rate 55 mL/min (>60); Est Glom Filt Rate - Afr Amer 66 mL/min (>60); Glucose 248 mg/dL (74-106); Lipase 12 U/L (13-75); Potassium 4.4 mmol/L (3.5-5.1); Protein, Total 7.7 g/dL (6.4-8.2); Sodium Level 136 mmol/L (136-145)
== END | disposition home or self-care (01) ==
PROVIDERS: PCP Family Medicine; Visit Provider Family Medicine
DX: A04.72 Enterocolitis due to Clostridium difficile, not specified as recurrent (principal)
CPT/HCPCS: 36415; 80053; 83690; 85025; 86140; 87493

== ENCOUNTER 2023-03-07 20:32 | Inpatient (IN) | payer MEDICARE, SELFPAY ==
[2023-03-07 20:33] VITALS: BP 101/58; PULSE 99; RESP 13; TEMP 36.2; BMI 29.2
[2023-03-07 21:10] VITALS: BP 104/49; RESP 20; O2SAT 94
[2023-03-07] MEDS: 0.9% Normal Saline (1000mL) 1,000 ML 1000 ML IV (21:11)
[2023-03-07 21:42] LABS: Absolute Lymphocyte Count 1.47 X10^3/uL (0.83-4.51); Absolute Neutrophil Count 14.5 X10^3/uL (2.0-7.7); Basophil# 0.12 X10^3/uL; Basophil% 0.7 % (0-1); Eosinophil# 0.15 X10^3/uL; Eosinophils% 0.8 % (0-5); Hematocrit 54.6 % (40-54); Hemoglobin 17.6 g/dL (13.0-16.5); Lymphocyte # 1.47 X10^3/ul (0.83-4.51); Lymphocyte % 8.1 % (19-41); Mean Corp Hgb Conc 32.2 g/dL (32-36); Mean Corpuscular Hgb 29.1 pg (27.0-32.0); Mean Corpuscular Volume 90.4 fL (80-94); Mean Platelet Vol. 11.6 fl (6.2-12.0); Monocyte# 1.85 X10^3/uL; Monocyte% 10.2 % (0-10); NRBC Flagged by Analyzer 0 % (0-5); Neutrophil # 14.51 X10^3/uL (2.7-7.7); Neutrophil % 79.6 % (47-70); POSITIVE DIFFERENTIAL YES; Platelet Count 227 K/mm3 (150-450); RBC Distribution Width CV 14.6 % (11.6-14.6); RBC Distribution Width SD 47.7 fl (35.1-43.9); Red Blood Count 6.04 M/mm3 (4.6-6.2); White Blood Count 18.2 K/mm3 (4.4-11.0)
--- OUTSIDE RECORDS SUMMARY | 2023-03-07 21:49 | XMS RPT_ITS | CCD ---
Author Name Unknown Address [address] [place] [address] Organization [facility] Care Team Providers Care Quill Skinner Name Role Phone TIA Reid, Yaritza Samson Unavailable UnavailEdilma Weldon Unavailable ITA Reid, Yaritza Samson Unavailable Unavailabl e [employer]ensho SALES AND MARKETING ASSOCIATE, Kate A Unavailable Unavailab le Yensho SALES AND MARKETING ASSOCIATE, Kate A Unavailable Unavailab paola Hernandez RN, Nirali Samson Unavailable Unavailable Yensho SALES AND MARKETING ASSOCIATE, Kate A Unavailable Unavailab paola Hernandez RN, Nirali Mali Unavailable Unavailable TIA Hernandez, Nirali Samson Unavailable Unavailable TIA Hernandez, Nirali Samson Unavailable Unavailable TIA Hernandez, Nirali Samson Unavailable Unavailable TIA Hernandez, Nirali M Unavailable Unavailable Linnette Singh Unavailable Unavailable Shannan WEBER, Saumya Ye Unavailable Unavailable Gabby, Catherine Y Unavailable Unavailable JOSETTE OLIVA, HUMBLE Ye Primary Care Physician HUMBLE GARCAI MD Primary Care Unavailable SANDRA OIL LABORATORY ANALYST-PARALEGAL ASSISTANT, TU Samson Admitting Unavaila ble SUPPAN DPM, RUBÉN [employer] Unavailable KARMA HUDSON, DR SERNA Attending Unavailable Allergies Allergy Classification Reported Allergen(s) Allergy Type Date of Onset Reaction(s) Facility (19 sources) NKDA; Translations: [NKDA] drug allergy 3 None known [facility] Work Phone: NEGATED: Highlighted row has been ruled out! (6 sources) Observed no known allergies at [facility] No Known Allergies 7 propensity to adverse reactions [facility] Work Phone: NEGATED: Highlighted row has been ruled out! (2 sources) Observed no known allergies at [facility] No Known Allergies 7 propensity to adverse reactions [facility] Work Phone: Medications Current Medications Medication Drug Class(es) Dates Sig (Normalized) Sig (Original) allopurinol 100 mg oral tablet (1 source) Xanthine Oxidase Inhibitor Start: 10-13-2022 allopurinol 100 mg oral tablet Dose : 100 mg = 1 tab(s), Oral, BID Start Date: 10/13/22 Status: Ordered atorvastatin 80 mg oral tablet (20 sources) HMG-CoA Reductase Inhibitor Start: 10-13-2022 atorvastatin 80 mg oral tablet Dose : 80 mg = 1 tab(s), Oral, qDay Start Date: 10/13/22 Status: Ordered Completed/Discontinued Medications Medication Drug Class(es) Dates Sig (Normalized) Sig (Original) acetaminophen 325 mg / oxyCODONE hydrochloride 5 mg oral tablet (20 sources) Opioid Agonist Start: 07-04-2012 PERCOCET 5-325 MG TABS twice daily as needed OXYCODONE-ACETAMINO PHEN [id number] Atiya Lau Problems Active Problems Problem Classification Problem Date Documented Da te Episodic/Chronic Chronic obstructive pulmonary disease and bronchiectasis (20 sources) Chronic obstructive lung disease; Translations: [Moderate chronic obstructive pulmonary disease] Onset: 06-20-2010 Resolved: 08-10-2016 06-20-2010 Chronic Congestive heart failure; nonhypertensive (1 source) Heart failure; Translations: [Heart failure, unspecified] Onset: 10-14-2022 Chronic Coronary atherosclerosis and other heart disease (20 sources) Coronary arteriosclerosis; Translations: [Atherosclerotic heart disease of [place] coronary artery without angina pectoris] Onset: 06-20-2010 Resolved: 09-23-2014 06-20-2010 Chronic Diabetes mellitus without complication (16 sources) Diabetes mellitus; Translations: [Type 2 diabetes mellitus without complication] Onset: 06-20-2010 06-20-2010 Chronic Disorders of lipid metabolism (15 sources) Hyperlipidemia; Translations: [Hyperlipidemia, unspecified] Onset: 06-20-2010 06-20-2010 Chronic Essential hypertension (16 sources) Hypertensive disorder; Translations: [Essential hypertension] Onset: 06-20-2010 06-20-2010 Chronic Other nutritional; endocrine; and metabolic disorders (20 sources) Body mass index (BMI) 35.0-35.9, adult; Translations: [Body mass index (BMI) 36.0-36.9, adult] Onset: 08-05-2013 03-17-2014 Chronic Other nutritional; endocrine; and metabolic disorders (7 sources) Body mass index (BMI) 33.0-33.9, adult; Translations: [Body mass index (BMI) 33.0-33.9, adult] Onset: 08-05-2013 03-28-2016 Chronic Pulmonary heart disease (15 sources) Pulmonary hypertension; Translations: [Other secondary pulmonary hypertension] Onset: 10-28-2013 10-28-2013 Chronic Screening or history of mental health and substance abuse (20 sources) Tobacco dependence syndrome; Translations: [Nicotine dependence, unspecified, uncomplicated] Onset: 06-20-2010 Resolved: 09-28-2015 09-28-2015 Chronic Unclassified (8 sources) Implantation of automatic cardiac defibrillator ; Translations: [Presence of automatic (implantable) cardiac defibrillator] Onset: 06-20-2010 06-20-2010 Unclassified (7 sources) Long-term drug therapy; Translations: [Other residential (current) drug therapy] Onset: 06-20-2010 06-20-2010 Past or Other Problems Problem Classification Problem Date Documented Da te Episodic/Chronic Cardiac dysrhythmias (15 sources) Palpitations; Translations: [Palpitations] Onset: 06-20-2010 06-20-2010 Episodic Coronary atherosclerosis and other heart disease (20 sources) Presence of aortocoronary bypass graft; Translations: [Coronary angioplasty status] Onset: 06-20-2010 06-20-2010 Episodic Nonspecific chest pain (7 sources) Chest pain; Translations: [Chest pain, unspecified] Onset: 09-26-2016 09-26-2016 Episodic Other aftercare (8 sources) Other terminal block assembler (current) drug therapy; Translations: [Other residential (current) drug therapy] Onset: 06-20-2010 06-20-2010 Episodic Other circulatory disease (8 sources) History of myocardial infarction; Translations: [Old myocardial infarction] Onset: 06-20-2010 06-20-2010 Episodic Other diseases of kidney and ureters (15 sources) Kidney disease; Translations: [Disorder of kidney and ureter, unspecified] Onset: 06-20-2010 06-20-2010 Episodic Other lower respiratory disease (20 sources) Dyspnea; Translations: [Dyspnea, unspecified] Onset: 08-05-2013 Resolved: 08-10-2016 08-10-2016 Episodic Other lower respiratory disease (14 sources) Dyspnea, unspecified; Translations: [Dyspnea, unspecified] Onset: 09-23-2014 Resolved: 08-10-2016 09-23-2014 Episodic Pulmonary heart disease (15 sources) Pulmonary embolism; Translations: [Other pulmonary embolism without acute cor pulmonale] Onset: 06-20-2010 06-20-2010 Episodic Syncope (20 sources) Syncope and collapse; Translations: [Syncope and collapse] Onset: 12-11-2013 Resolved: 01-27-2014 01-27-2014 Episodic Unclassified (15 sources) Family history of ischemic heart disease and other diseases of the circulatory system; Translations: [Family history of ischemic heart disease and other diseases of the circulatory system] 08-05-2013 Episodic Results Test Name Value Interpretation Reference Range Facil ity Vital Signs Date Time Vital Sign Value Performing Clinician Facility 10-14-2022 12:18-0400 Body temperature 98.24 [degF] TU FLORES OIL LABORATORY ANALYST-PARALEGAL ASSISTANT [facility] 10-14-2022 12:18-0400 Diastolic Blood Pressure Non-Invasive 61 1 TU DE LA CRUZMADI OIL LABORATORY ANALYST-PARALEGAL ASSISTANT [facility] 10-14-2022 12:18-0400 Heart rate 76 /min TU FLORES OIL LABORATORY ANALYST-PARALEGAL ASSISTANT [facility] 10-14-2022 12:18-0400 Respiratory rate 18 /min TU FLORES OIL LABORATORY ANALYST-PARALEGAL ASSISTANT [facility] 10-14-2022 12:18-0400 Systolic Blood Pressure Non-Invasive 136 1 TU FLORES OIL LABORATORY ANALYST-PARALEGAL ASSISTANT [facility] 10-14-2022 08:20-0400 Diastolic Blood Pressure Non-Invasive 68 1 TU FLORES OIL LABORATORY ANALYST-PARALEGAL ASSISTANT [facility] 10-14-2022 08:20-0400 Heart rate 89 /min TU KAPPER OIL LABORATORY ANALYST-PARALEGAL ASSISTANT [facility] 10-14-2022 08:20-0400 Systolic Blood Pressure Non-Invasive 136 1 TU KAPPER OIL LABORATORY ANALYST-PARALEGAL ASSISTANT [facility] 10-14-2022 06:57-0400 Body temperature 98.6 [degF] TU KAPPER OIL LABORATORY ANALYST-PARALEGAL ASSISTANT [facility] 10-14-2022 06:57-0400 Diastolic Blood Pressure Non-Invasive 70 1 TU KAPPER OIL LABORATORY ANALYST-PARALEGAL ASSISTANT [facility] 10-14-2022 06:57-0400 Heart rate 79 /min TU KAPPER OIL LABORATORY ANALYST-PARALEGAL ASSISTANT [facility] 10-14-2022 06:57-0400 Respiratory rate 18 /min TU KAPPER OIL LABORATORY ANALYST-PARALEGAL ASSISTANT [facility] 10-14-2022 06:57-0400 Systolic Blood Pressure Non-Invasive 137 1 TU KAPPER OIL LABORATORY ANALYST-PARALEGAL ASSISTANT [facility] 10-14-2022 03:01-0400 Body temperature 98.6 [degF] TU KAPPER OIL LABORATORY ANALYST-PARALEGAL ASSISTANT [facility] 10-14-2022 03:01-0400 Heart rate 90 /min TU KAPPER OIL LABORATORY ANALYST-PARALEGAL ASSISTANT [facility] 10-14-2022 03:01-0400 Respiratory rate 18 /min TU KAPPER OIL LABORATORY ANALYST-PARALEGAL ASSISTANT [facility] 10-13-2022 23:55-0400 Heart rate 96 /min TU KAPPER OIL LABORATORY ANALYST-PARALEGAL ASSISTANT [facility] 10-13-2022 23:45-0400 Heart rate 84 /min TU FLORES OIL LABORATORY ANALYST-PARALEGAL ASSISTANT [facility] 10-13-2022 20:15-0400 Body height 193 cm TU FLORES OIL LABORATORY ANALYST-PARALEGAL ASSISTANT [facility] 10-13-2022 20:15-0400 Body weight 113.2 kg TU FLORES OIL LABORATORY ANALYST-PARALEGAL ASSISTANT [facility] 10-13-2022 20:15-0400 Body weight 30.39 kg/m2 TU FLORES OIL LABORATORY ANALYST-PARALEGAL ASSISTANT [facility] 10-13-2022 16:20-0400 Blood Pressure Location TU FLORES OIL LABORATORY ANALYST-PARALEGAL ASSISTANT [facility] 10-13-2022 16:20-0400 Blood Pressure Method TU FLORES OIL LABORATORY ANALYST-PARALEGAL ASSISTANT [facility] 09-26-2016 13:03-0400 BMI (Body Mass Index) 32.13 kg/m2 [facility] Work Phone: 09-26-2016 13:03-0400 BP Diastolic 50 mm[Hg] [facility] Work Phone: 09-26-2016 13:03-0400 BP Systolic 120 mm[Hg] [facility] Work Phone: 09-26-2016 13:03-0400 Height 193.04 cm [facility] Work Phone: 09-26-2016 13:03-0400 Pulse (Heart Rate) 72 /min [facility] Work Phone: 09-26-2016 13:03-0400 Respiratory Rate 20 /min [facility] Work Phone: 09-26-2016 13:03-0400 Weight 119.75 kg Edilma Garcia [facility] Work Phone: 08-09-2016 13:28-0400 BMI (Body Mass Index) 32.86 kg/m2 Linnette Singh [facility] Work Phone: 08-09-2016 13:28-0400 Body Temperature 98.2 [degF] Linnette Francisco [facility] Work Phone: 08-09-2016 13:28-0400 BP Diastolic 80 mm[Hg] Linnette Francisco [facility] Work Phone: 08-09-2016 13:28-0400 BP Systolic 151 mm[Hg] Linnette Francisco [facility] Work Phone: 08-09-2016 13:28-0400 Height 193.04 cm Linnette Francisco [facility] Work Phone: 08-09-2016 13:28-0400 Pulse (Heart Rate) 88 /min Linnette Singh [facility] Work Phone: 08-09-2016 13:28-0400 Pulse Oximetry 98 % Linnette Francisco [facility] Work Phone: 08-09-2016 13:28-0400 Respiratory Rate 18 /min Linnette Francisco [facility] Work Phone: 08-09-2016 13:28-0400 Weight 122.47 kg Linnette Francisco [facility] Work Phone: 03-28-2016 13:07-0500 BMI (Body Mass Index) 33.52 kg/m2 [facility] Work Phone: 03-28-2016 13:07-0500 BP Diastolic 60 mm[Hg] Nirali Hernandez RN [facility] Work Phone: 03-28-2016 13:07-0500 BP Systolic 100 mm[Hg] Nirali Hernandez RN [facility] Work Phone: 03-28-2016 13:07-0500 BSA (Body Surface Area) 2.54 m2 [facility] Work Phone: 03-28-2016 13:07-0500 Pulse (Heart Rate) 68 /min [facility] Work Phone: 03-28-2016 13:07-0500 Respiratory Rate 20 /min TIA [facility] Work Phone: 03-28-2016 13:07-0500 Weight 124.92 kg TIA [facility] Work Phone: 02-09-2016 13:20-0500 Body Temperature 96.44 [degF] TIA [facility] Work Phone: 02-09-2016 13:20-0500 Body Temperature 96.4 [degF] [facility] Work Phone: 02-09-2016 13:20-0500 Height 193.04 cm TIA [facility] Work Phone: 02-09-2016 13:20-0500 Pulse Oximetry 97 % [facility] Work Phone: 02-09-2016 13:20-0500 Weight 125 kg TIA [facility] Work Phone: 03-30-2015 13:45-0500 BP Diastolic 62 mm[Hg] TIA [facility] Work Phone: 03-30-2015 13:45-0500 BP Diastolic 60 mm[Hg] TIA [facility] Work Phone: 03-30-2015 13:45-0500 BP Systolic 110 mm[Hg] [facility] Work Phone: 03-30-2015 13:45-0500 BP Systolic 112 mm[Hg] T[facility] Work Phone: 03-30-2015 13:45-0500 Pulse (Heart Rate) 93 /min Nirali Hernandez RN [facility] Work Phone: 03-30-2015 13:45-0500 Pulse (Heart Rate) 78 /min Nirali Hernandez RN [facility] Work Phone: 12-11-2013 14:31-0400 BP Diastolic 62 mm[Hg] Nirali Hernandez RN [facility] Work Phone: 12-11-2013 14:31-0400 BP Systolic 110 mm[Hg] Nirali Hernandez RN [facility] Work Phone: Encounters Encounter Date Encounter Type Care Provider Facility Start: 10-13-2022 End: 10-14-2022 Evaluation and management of inpatient HUMBLE GARCIA MD Facility:B Start: 10-13-2022 End: 10-14-2022 Evaluation and management of inpatient TU Samson SANDRA OIL LABORATORY ANALYST-[facility] Procedures Date Procedure Procedure Detail Performing Clinician Start: 11-22-2016 End: 11-22-2016 Prgrmng dev eval implantable in persn 1 ld dfb Tricia Rodriguez PA-C Work Phone: Start: 09-26-2016 End: 10-04-2016 Echocardiography Berry Garza MD Start: 09-26-2016 End: 09-26-2016 Follow Up Appt 6 months Mali Carr Start: 09-26-2016 End: 09-26-2016 MMM Berry Garza MD Start: 09-26-2016 End: 10-04-2016 Nuclear stress test -Lexiscan Berry Garza MD Start: 09-26-2016 End: 10-04-2016 Echocardiography Berry Garza MD Start: 09-26-2016 End: 09-26-2016 Follow Up Appt 6 months Mali Carr Start: 09-26-2016 End: 09-26-2016 LUCY Garza MD Start: 09-26-2016 End: 10-04-2016 Nuclear stress test -Pat Garza MD Start: 08-09-2016 End: 08-09-2016 Dietary management education, guidance, and counseling Linnette Singh Start: 08-08-2016 End: 08-08-2016 Prgrmng dev eval implantable in persn 1 ld frank Garza MD Start: 08-08-2016 End: 08-08-2016 Icd device prog eval, 1 ezequiel Garza MD Start: 05-02-2016 End: 05-02-2016 Prgrmng dev eval implantable in persn 1 ld frank Garza MD Start: 05-02-2016 End: 05-02-2016 Icd device prog eval, 1 ezequiel Garza MD Start: 03-28-2016 End: 03-28-2016 RACHELE Rodriguez PA-C Work Phone: Start: 03-28-2016 End: 03-28-2016 Follow Up Appt 6 months Tricia pearson PA-C Work Phone: Start: 03-28-2016 End: 03-28-2016 RACHELE Rodriguez PA-C Work Phone: Start: 03-28-2016 End: 03-28-2016 Follow Up Appt 6 months Tricia pearson PA-C Work Phone: Start: 01-26-2016 End: 03-16-2016 Follow Up Appt 3 months Mali Carr Start: 01-26-2016 End: 03-16-2016 Pacer Clinic Berry Garza MD Start: 01-26-2016 End: 01-26-2016 Prgrmng dev eval implantable in persn 1 ld frank Garza MD Start: 01-26-2016 End: 03-16-2016 Follow Up Appt 3 months Mali Carr Start: 01-26-2016 End: 01-26-2016 Icd device prog eval, 1 ezequiel Garza MD Start: 01-26-2016 End: 03-16-2016 Pacer Clinic Berry Garza MD Start: 10-26-2015 End: 03-16-2016 Follow Up Appt 3 months Mali Crar Start: 10-26-2015 End: 03-16-2016 Pacer Clinic Berry Garza MD Start: 10-26-2015 End: 10-26-2015 Prgrmng dev eval implantable in persn 1 ld frank Garza MD Start: 10-26-2015 End: 03-16-2016 Follow Up Appt 3 months Mali Carr Start: 10-26-2015 End: 10-26-2015 Icd device prog eval, 1 snazeem Garza MD Start: 10-26-2015 End: 03-16-2016 Pacer Clinic Berry Garza MD Start: 09-28-2015 End: 09-28-2015 Follow Up Appt 6 months Mali Carr Start: 09-28-2015 End: 09-28-2015 MMMali Garza MD Start: 09-28-2015 End: 09-28-2015 Follow Up Appt 6 months Mali Carr Start: 09-28-2015 End: 09-28-2015 LUCY Garza MD Start: 07-26-2015 End: 03-16-2016 Follow Up Appt 3 months Tricia pearson PA-C Work Phone: Start: 07-26-2015 End: 03-16-2016 Pacer Clinic Tricia Rodriguez PA-C Work Phone: Start: 07-26-2015 End: 07-26-2015 Prgrmng dev eval implantable in persn 1 ld dfb Tricia Rodriguez PA-C Work Phone: Start: 07-26-2015 End: 03-16-2016 Follow Up Appt 3 months Tricia pearson PA-C Work Phone: Start: 07-26-2015 End: 07-26-2015 Icd device prog eval, 1 sngl Tricia Rodriguez PA-C Work Phone: Start: 07-26-2015 End: 03-16-2016 Pacer Clinic Tricia Rodriguez PA-C Work Phone: Start: 03-30-2015 End: 03-30-2015 PARIMUTUEL CLERK Tricia Rodriguez PA-C Work Phone: Start: 03-30-2015 End: 03-16-2016 Follow Up Appt 3 months Mali Carr Start: 03-30-2015 End: 03-30-2015 Follow Up Appt 6 months Tricia pearson PA-C Work Phone: Start: 03-30-2015 End: 03-16-2016 Pacer Clinic Berry Garza MD Start: 03-30-2015 End: 03-31-2015 Prgrmng dev eval implantable in persn 1 ld dfb Berry Garza MD Start: 03-30-2015 End: 03-30-2015 PARIMUTUEL CLERK Tricia Rodriguez PA-C Work Phone: Start: 03-30-2015 End: 03-16-2016 Follow Up Appt 3 months Mali Carr Start: 03-30-2015 End: 03-30-2015 Follow Up Appt 6 months Tricia pearson PA-C Work Phone: Start: 03-30-2015 End: 03-31-2015 Icd device prog eval, 1 sngl Berry Garza MD Start: 03-30-2015 End: 03-16-2016 Pacer Clinic Berry Garza MD Start: 01-26-2015 End: 07-05-2015 Follow Up Appt 6 months Sydney Head Kimberlyn er PARALEGAL ASSISTANT Work Phone: Start: 01-26-2015 End: 03-24-2015 Pulmonary Function Test - complete Sydney Evans PARALEGAL ASSISTANT Work Phone: Start: 01-26-2015 End: 07-05-2015 Pulmonary stress test/simple Sydney Head Evans PARALEGAL ASSISTANT Work Phone: Start: 01-26-2015 End: 07-05-2015 Follow Up Appt 6 months Sydney S Kimberlyn er PARALEGAL ASSISTANT Work Phone: Start: 01-26-2015 End: 03-24-2015 Pulmonary Function Test - complete Sydney S Evans PARALEGAL ASSISTANT Work Phone: Start: 01-26-2015 End: 07-05-2015 Pulmonary stress test/simple Sydney S Evans PARALEGAL ASSISTANT Work Phone: Start: 01-22-2015 End: 03-24-2015 Follow Up Appt 3 months Tricia pearson PA-C Work Phone: Start: 01-22-2015 End: 03-24-2015 Pacer Clinic Tricia Rodriguez PA-C Work Phone: Start: 01-22-2015 End: 01-22-2015 Prgrmng dev eval implantable in persn 1 ld dfb Tricia Rodriguez PA-C Work Phone: Start: 01-22-2015 End: 03-24-2015 Follow Up Appt 3 months Tricia pearson PA-C Work Phone: Start: 01-22-2015 End: 01-22-2015 Icd device prog eval, 1 sngl Tricia Rodriguez PA-C Work Phone: Start: 01-22-2015 End: 03-24-2015 Pacer Clinic Tricia Rodriguez PA-C Work Phone: Start: 09-24-2014 End: 09-25-2014 Documentation of current medications Berry Garza MD Start: 09-24-2014 End: 03-24-2015 Follow Up Appt 3 months Mali Carr Start: 09-24-2014 End: 03-24-2015 Follow Up Appt 6 months Mali Carr Start: 09-24-2014 End: 03-24-2015 MM Berry Garza MD Start: 09-24-2014 End: 03-24-2015 Pacer Clinic Berry Garza MD Start: 09-24-2014 End: 09-25-2014 Pedal pulse taking Berry Garza MD Start: 09-24-2014 End: 09-24-2014 Prgrmng dev eval implantable in persn 1 ld dfb Berry Garza MD Start: 09-24-2014 End: 09-25-2014 Documentation of current medications Berry Garza MD Start: 09-24-2014 End: 03-24-2015 Follow Up Appt 3 months Mali Carr Start: 09-24-2014 End: 03-24-2015 Follow Up Appt 6 months Mali Carr Start: 09-24-2014 End: 09-24-2014 Icd device prog eval, 1 sngl Berry Garza MD Start: 09-24-2014 End: 03-24-2015 MMM Berry Garza MD Start: 09-24-2014 End: 03-24-2015 Pacer Clinic Berry Garza MD Start: 09-24-2014 End: 09-25-2014 Pedal pulse taking Berry Garza MD Start: 06-19-2014 End: 03-24-2015 Follow Up Appt 3 months Tricia pearson PA-C Work Phone: Start: 06-19-2014 End: 03-24-2015 Pacer Clinic Tricia Rodriguez PA-C Work Phone: Start: 06-19-2014 End: 06-19-2014 Prgrmng dev eval implantable in persn 1 ld dfb Tricia Rodriguez PA-C Work Phone: Start: 06-19-2014 End: 03-24-2015 Follow Up Appt 3 months Tricia pearson PA-C Work Phone: Start: 06-19-2014 End: 06-19-2014 Icd device prog eval, 1 sngl Tricia Rodriguez PA-C Work Phone: Start: 06-19-2014 End: 03-24-2015 Pacer Clinic Tricia Rodriguez PA-C Work Phone: Start: 03-17-2014 End: 03-16-2016 *CBC with Differential Tricia ingram PA-C Work Phone: Start: 03-17-2014 End: 03-17-2014 PARIMUTUEL CLERK Tricia Rodriguez PA-C Work Phone: Start: 03-17-2014 End: 03-18-2014 Documentation of current medications Tricia Rodriguez PA-C Work Phone: Start: 03-17-2014 End: 03-24-2015 Follow Up Appt 3 months Mali Carr Start: 03-17-2014 End: 03-17-2014 Follow Up Appt 6 months Tricia pearson PA-C Work Phone: Start: 03-17-2014 End: 03-16-2016 Hemoglobin.gastrointestinal .lower [Presence] in Stool by Immunoassay Tricia Rodriguez PA-C Work Phone: Start: 03-17-2014 End: 03-24-2015 Pacer Clinic Berry Garza MD Start: 03-17-2014 End: 03-18-2014 Pedal pulse taking Tricia Rodriguez PA-C Work Phone: Start: 03-17-2014 End: 03-17-2014 Prgrmng dev eval implantable in persn 1 ld dfb Berry Garza MD Start: 03-17-2014 End: 03-16-2016 *CBC with Differential Tricia ingram PA-C Work Phone: Start: 03-17-2014 End: 03-17-2014 PARIMUTUEL CLERK Tricia Rodriguez PA-C Work Phone: Start: 03-17-2014 End: 03-18-2014 Documentation of current medications Tricia Rodriguez PA-C Work Phone: Start: 03-17-2014 End: 03-24-2015 Follow Up Appt 3 months Mali Carr Start: 03-17-2014 End: 03-17-2014 Follow Up Appt 6 months Tricia pearson PA-C Work Phone: Start: 03-17-2014 End: 03-16-2016 Hemoglobin by Imm presence in stool Tricia Rodriguez PA-C Work Phone: Start: 03-17-2014 End: 03-17-2014 Icd device prog eval, 1 sngl Berry Garza MD Start: 03-17-2014 End: 03-24-2015 Pacer Clinic Berry Garza MD Start: 03-17-2014 End: 03-18-2014 Pedal pulse taking Tricia Rodriguez PA-C Work Phone: Start: 01-27-2014 End: 02-26-2014 Follow Up Appt 6 months Steve De Leon Work Phone: Start: 01-27-2014 End: 02-04-2016 Pulmonary Fuction Test - complete Steve De Leon Work Phone: Start: 01-27-2014 End: 02-04-2016 Pulmonary stress test/simple Steve Isac De Leon Work Phone: Start: 01-27-2014 End: 02-26-2014 Follow Up Appt 6 months Steve Isac De Leon Work Phone: Start: 01-27-2014 End: 02-04-2016 Pulmonary Fuction Test - complete Steve De Leon Work Phone: Start: 01-27-2014 End: 02-04-2016 Pulmonary stress test/simple Steve Isac De Leon Work Phone: Start: 12-11-2013 End: 12-11-2013 Device Interrogation Berry Garza MD Start: 12-11-2013 End: 01-05-2014 Echocardiography Berry Garza MD Start: 12-11-2013 End: 02-26-2014 Follow Up Appt 3 months Wesson S Kayla, M D Start: 12-11-2013 End: 12-11-2013 LUCY Garza MD Start: 12-11-2013 End: 02-26-2014 Pacer Clinic Berry Garza MD Start: 12-11-2013 End: 12-11-2013 Prgrmng dev eval implantable in persn 1 ld dfbeka Garza MD Start: 12-11-2013 End: 12-11-2013 Device Interrogation Berry Garza MD Start: 12-11-2013 End: 01-05-2014 Echocardiography Berry Garza MD Start: 12-11-2013 End: 02-26-2014 Follow Up Appt 3 months Mali Carr Start: 12-11-2013 End: 12-11-2013 Icd device prog eval, 1 sngl Berry Garza MD Start: 12-11-2013 End: 12-11-2013 LUCY Garza MD Start: 12-11-2013 End: 02-26-2014 Pacer Clinic Berry Garza MD Start: 11-04-2013 End: 12-11-2013 Follow Up Appt 3 months Mali Carr Start: 11-04-2013 End: 12-11-2013 Pacer Clinic Berry Garza MD Start: 11-04-2013 End: 11-04-2013 Prgrmng dev eval implantable in persn 1 ld frank Garza MD Start: 11-04-2013 End: 12-11-2013 Follow Up Appt 3 months Mali Carr Start: 11-04-2013 End: 11-04-2013 Icd device prog eval, 1 sngl Berry Garza MD Start: 11-04-2013 End: 12-11-2013 [facility] Berry Garza MD Start: 10-28-2013 End: 01-05-2014 Echo tthrc r-t 2d w/wom-mode compl spec&colr d Steve De Leon Work Phone: Start: 10-28-2013 End: 02-04-2016 Pulmonary Fuction Test - complete Steve De Leon Work Phone: Start: 10-28-2013 End: 02-04-2016 Pulmonary Fuction Test - complete Steve De Leon Work Phone: Start: 10-28-2013 End: 01-05-2014 Tte w/doppler, complete Steve De Leon Work Phone: Start: 08-05-2013 End: 08-05-2013 Follow Up Appt 3 months Mali Carr Start: 08-05-2013 End: 08-05-2013 Follow Up Appt 6 months Mali Carr Start: 08-05-2013 End: 08-05-2013 MMM Berry Garza MD Start: 08-05-2013 End: 08-05-2013 Pacer Clinic Berry Garza MD Start: 08-05-2013 End: 08-05-2013 Prgrmng dev eval implantable in persn 1 ld dfb Berry Garza MD Start: 08-05-2013 End: 08-05-2013 Follow Up Appt 3 months Mali Carr Start: 08-05-2013 End: 08-05-2013 Follow Up Appt 6 months Mali Carr Start: 08-05-2013 End: 08-05-2013 Icd device prog eval, 1 gl Berry Garza MD Start: 08-05-2013 End: 08-05-2013 MMM Berry Garza MD Start: 08-05-2013 End: 08-05-2013 [facility] Clinic Berry Garza MD Start: 05-06-2013 End: 12-11-2013 Follow Up Appt 3 months Mali Carr Start: 05-06-2013 End: 12-11-2013 Pacer Clinic Berry Garza MD Start: 05-06-2013 End: 05-06-2013 Prgrmng dev eval implantable in persn 1 ld dfb Berry Garza MD Start: 05-06-2013 End: 12-11-2013 Follow Up Appt 3 months Mali Carr Start: 05-06-2013 End: 05-06-2013 Icd device prog eval, 1 ezequiel Garza MD Start: 05-06-2013 End: 12-11-2013 [facility] Clinic Berry Garza MD Start: 01-20-2013 End: 12-11-2013 *BMP Tricia Rodriguez PA-C Work Phone: Start: 01-20-2013 End: 12-11-2013 *CBC with Differential Tricia ingram PA-C Work Phone: Start: 01-20-2013 End: 11-26-2013 *Hepatic Function Panel Tricia pearson PA-C Work Phone: Start: 01-20-2013 End: 01-20-2013 PARIMUTUEL CLERK Tricia Rodriguez PA-C Work Phone: Start: 01-20-2013 End: 01-20-2013 Follow Up Appt 3 months Mali Carr Start: 01-20-2013 End: 01-20-2013 Follow Up Appt 6 months Tricia pearson PA-C Work Phone: Start: 01-20-2013 End: 01-20-2013 Follow Up Appt Other Tricia prajapati PA-C Work Phone: Start: 01-20-2013 End: 11-26-2013 Lipid 1996 panel - Serum or Plasma Tricia Rodriguez PA-C Work Phone: Start: 01-20-2013 End: 01-20-2013 Pacer Clinic Berry Garza MD Start: 01-20-2013 End: 01-20-2013 Prgrmng dev eval implantable in persn 1 ld dfb Berry Garza MD Start: 01-20-2013 End: 12-11-2013 *BMP Tricia Rodriguez PA-C Work Phone: Start: 01-20-2013 End: 12-11-2013 *CBC with Differential Tricia ingram PA-C Work Phone: Start: 01-20-2013 End: 11-26-2013 *Hepatic Function Panel Tricia pearson PA-C Work Phone: Start: 01-20-2013 End: 01-20-2013 PARIMUTUEL CLERK Tricia Rodriguez PA-C Work Phone: Start: 01-20-2013 End: 01-20-2013 Follow Up Appt 3 months Mali Carr Start: 01-20-2013 End: 01-20-2013 Follow Up Appt 6 months Tricia pearson PA-C Work Phone: Start: 01-20-2013 End: 01-20-2013 Follow Up Appt Other Tricia prajapati PA-C Work Phone: Start: 01-20-2013 End: 01-20-2013 Icd device prog eval, 1 ezequiel Garza MD Start: 01-20-2013 End: 11-26-2013 Lipid panel [AGGREGATE] Tricia pearson PA-C Work Phone: Start: 01-20-2013 End: 01-20-2013 [facility] Berry Garza MD Start: 10-15-2012 End: 01-09-2013 Follow Up Appt 3 months Mali Carr Start: 10-15-2012 End: 01-09-2013 Pacer Clinic Berry Garza MD Start: 10-15-2012 End: 10-15-2012 Prgrmng dev eval implantable in persn 1 ld reeseb Berry Garza MD Start: 10-15-2012 End: 01-09-2013 Follow Up Appt 3 months Mali Carr Start: 10-15-2012 End: 10-15-2012 Icd device prog eval, 1 ezequiel Garza MD Start: 10-15-2012 End: 01-09-2013 Pacer Clinic Berry Garza MD Start: 08-13-2012 End: 01-09-2013 Follow Up Appt 3 months Mali Carr Start: 08-13-2012 End: 01-09-2013 [facility] Yoel Garza MD Start: 08-13-2012 End: 08-13-2012 Prgrmng dev eval implantable in persn 1 ld dfb Berry Garza MD Start: 08-13-2012 End: 01-09-2013 Follow Up Appt 3 months Mali Carr Start: 08-13-2012 End: 08-13-2012 Icd device prog eval, 1 sngl Berry Garza MD Start: 08-13-2012 End: 01-09-2013 Pacer Clinic Berry Garza MD Start: 07-04-2012 End: 07-04-2012 *Hepatic Function Panel Mali Carr Start: 07-04-2012 End: 07-04-2012 Follow Up Appt 6 months Mali Carr Start: 07-04-2012 End: 07-04-2012 Lipid 1996 panel - Serum or Plasma Berry Garza MD Start: 07-04-2012 End: 07-04-2012 MMM Berry Garza MD Start: 07-04-2012 End: 07-04-2012 Follow Up Appt 6 months Mali Carr Start: 07-04-2012 End: 07-04-2012 MMM Berry Garza MD Start: 07-03-2012 End: 12-11-2013 *Hepatic Function Panel Mali Carr Start: 07-03-2012 End: 12-11-2013 Lipid panel [AGGREGATE] Mali Carr Start: 07-03-2012 End: 12-11-2013 *Hepatic Function Panel Tong Sutherland MD Start: 07-03-2012 End: 12-11-2013 Lipid panel [AGGREGATE] Tong Sutherland MD Start: 05-09-2012 End: 07-04-2012 Follow Up Appt 3 months Tong Sutherland MD Start: 05-09-2012 End: 07-04-2012 Pacer Clinic Tong Sutherland MD Start: 05-09-2012 End: 05-09-2012 Prgrmng dev eval implantable in persn 1 ld dfb Tong Sutherland MD Start: 05-09-2012 End: 07-04-2012 Follow Up Appt 3 months Tong Sutherland MD Start: 05-09-2012 End: 05-09-2012 Icd device prog eval, 1 sngl Tong Sutherland MD Start: 05-09-2012 End: 07-04-2012 Pacer Clinic Tong Sutherland MD Start: 01-04-2012 End: 01-04-2012 Follow Up Appt 6 months Tong Sutherland MD Start: 01-04-2012 End: 01-04-2012 Follow Up Appt 6 months Tong Sutherland MD Start: 09-11-2011 End: 07-04-2012 *Hepatic Function Panel Tong Sutherland MD Start: 09-11-2011 End: 07-04-2012 Lipid 1996 panel - Serum or Plasma Tong Sutherland MD Start: 09-11-2011 End: 07-04-2012 *Hepatic Function Panel Tong Sutherland MD Start: 09-11-2011 End: 07-04-2012 Lipid panel [AGGREGATE] Tong Sutherland MD Start: 04-11-2011 End: 06-06-2011 *BMP Tong Sutherland MD Start: 04-11-2011 End: 06-06-2011 *Hepatic Function Panel Tong Sutherland MD Start: 04-11-2011 End: 06-06-2011 Lipid 1996 panel - Serum or Plasma Tong Sutherland MD Start: 04-11-2011 End: 06-06-2011 Magnesium [Mass/volume] in Serum or Plasma Tong Sutherland MD Start: 04-11-2011 End: 06-06-2011 Thyrotropin [Units/volume] in Serum or Plasma Tong Sutherland MD Start: 04-11-2011 End: 06-06-2011 Thyroxine (T4) [Mass/volume] in Serum or Plasma Tong Sutherland MD Start: 04-11-2011 End: 06-06-2011 *BMP Tong Sutherland MD Start: 04-11-2011 End: 06-06-2011 *Hepatic Function Panel Tong Sutherland MD Start: 04-11-2011 End: 06-06-2011 Lipid panel [AGGREGATE] Tong Sutherland MD Start: 04-11-2011 End: 06-06-2011 Magnesium Tong Sutherland MD Start: 04-11-2011 End: 06-06-2011 Thyroid stimulating hormone (TSH) Tong Sutherland MD Start: 04-11-2011 End: 06-06-2011 Thyroxine (T4) Tong Sutherland MD Start: 04-04-2011 End: 06-06-2011 Echocardiography Tong Sutherland MD Start: 04-04-2011 End: 04-04-2011 Follow Up Appt 6 weeks Tong Sutherland MD Start: 04-04-2011 End: 06-06-2011 Nuclear stress test -adenosine Tong Sutherland MD Start: 04-04-2011 End: 06-06-2011 Echocardiography Tong Sutherland MD Start: 04-04-2011 End: 04-04-2011 Follow Up Appt 6 weeks Tong Sutherland MD Start: 04-04-2011 End: 06-06-2011 Nuclear stress test -adenosine Tong Sutherland MD Start: 06-20-2010 Implantation of automatic cardiac defibrillator IMPLANTATION OF DEFIBRILLATOR, HX OF Nirali Hernandez RN Start: 06-20-2010 Implantation of automatic cardiac defibrillator IMPLANTATION OF DEFIBRILLATOR, HX OF Linnette FLORES [employer] Coronary artery bypa ss graft TU FLORES [employer] Plan of Treatment Date Care Activity Detail Author Start: 03-28-2017 End: 03-28-2017 Appointment Appointment [facility] Work Phone: Start: 03-14-2017 End: 03-14-2017 Appointment Appointment [facility] Work Phone: Start: 02-07-2017 End: 02-07-2017 Appointment Appointment [facility] Work Phone: Start: 11-22-2016 End: 11-22-2016 Follow Up Appt 3 months Follow Up Appt 3 months [facility] Work Phone: Start: 11-22-2016 End: 11-22-2016 [facility] Clinic [facility] Work Phone: Start: 11-22-2016 End: 11-22-2016 Appointment Appointment [facility] Work Phone: Start: 09-26-2016 End: 09-26-2016 Echocardiography Echocardiogram (complete) [facility] Work Phone: Start: 09-26-2016 End: 09-26-2016 Follow Up Appt 6 months Follow Up Appt 6 months [facility] Work Phone: Start: 09-26-2016 End: 09-26-2016 MMM MMM [facility] Work Phone: Start: 09-26-2016 End: 09-26-2016 Nuclear stress test -Lexiscan Nuclear stress test -Lexiscan [facility] Work Phone: Start: 09-26-2016 End: 09-26-2016 Appointment Appointment [facility] Work Phone: Start: 09-26-2016 End: 09-26-2016 Echocardiography Echocardiogram (complete) [facility] Work Phone: Start: 09-26-2016 End: 09-26-2016 Follow Up Appt 6 months Follow Up Appt 6 months [facility] Work Phone: Start: 09-26-2016 End: 09-26-2016 MMM MMM [facility] Work Phone: Start: 09-26-2016 End: 09-26-2016 Nuclear stress test -Lexiscan Nuclear stress test -Lexiscan [facility] Work Phone: Start: 08-09-2016 End: 08-09-2016 [facility] Work Phone: Start: 08-09-2016 End: 08-09-2016 Follow Up Appt 6 months Follow Up Appt 6 months [facility] Work Phone: Start: 08-09-2016 End: 08-09-2016 Pulmonary Function Test - complete Pulmonary Function Test - complete [facility] Work Phone: Start: 08-09-2016 End: 08-09-2016 Appointment Appointment [facility] Work Phone: Start: 08-09-2016 End: 08-09-2016 [facility] Work Phone: Start: 08-09-2016 End: 08-09-2016 Follow Up Appt 6 months Follow Up Appt 6 months [facility] Work Phone: Start: 08-09-2016 End: 08-09-2016 Pulmonary Function Test - complete Pulmonary Function Test - complete [facility] Work Phone: Start: 08-08-2016 End: 08-08-2016 Follow Up Appt 3 months Follow Up Appt 3 months [facility] Work Phone: Start: 08-08-2016 End: 08-08-2016 [facility] Clinic [facility] Work Phone: Start: 08-08-2016 End: 08-08-2016 Appointment Appointment [facility] Work Phone: Start: 08-08-2016 End: 08-08-2016 Follow Up Appt 3 months Follow Up Appt 3 months [facility] Work Phone: Start: 08-08-2016 End: 08-08-2016 [facility] Clinic [facility] Work Phone: Start: 07-03-2016 End: 02-09-2016 Pulmonary Function Test - complete Pulmonary Function Test - complete [facility] Work Phone: Start: 07-03-2016 End: 02-09-2016 Pulmonary stress test/simple Pulmonary stress testing; simple (eg, 6-minute walk) [facility] Work Phone: Start: 07-03-2016 End: 02-09-2016 Pulmonary Function Test - complete Pulmonary Function Test - complete [facility] Work Phone: Start: 07-03-2016 End: 02-09-2016 Pulmonary stress test/simple Pulmonary stress testing; simple (eg, 6-minute walk) [facility] Work Phone: Start: 05-02-2016 End: 05-02-2016 Follow Up Appt 3 months Follow Up Appt 3 months [facility] Work Phone: Start: 05-02-2016 End: 05-02-2016 [facility] Clinic [facility] Work Phone: Start: 05-02-2016 End: 05-02-2016 Follow Up Appt 3 months Follow Up Appt 3 months [facility] Work Phone: Start: 05-02-2016 End: 05-02-2016 [facility] Clinic [facility] Work Phone: Start: 03-28-2016 End: 03-28-2016 PARIMUTUEL CLERK PARIMUTUEL CLERK [facility] Work Phone: Start: 03-28-2016 End: 03-28-2016 Follow Up Appt 6 months Follow Up Appt 6 months [facility] Work Phone: Start: 03-28-2016 End: 03-28-2016 PARIMUTUEL CLERK PARIMUTUEL CLERK [facility] Work Phone: Start: 03-28-2016 End: 03-28-2016 Follow Up Appt 6 months Follow Up Appt 6 months [facility] Work Phone: Start: 02-09-2016 End: 02-09-2016 BWA BWA [facility] Work Phone: Start: 02-09-2016 End: 02-09-2016 Follow Up Appt 6 months Follow Up Appt 6 months [facility] Work Phone: Start: 02-09-2016 End: 02-09-2016 BWA BWA [facility] Work Phone: Start: 02-09-2016 End: 02-09-2016 Follow Up Appt 6 months Follow Up Appt 6 months [facility] Work Phone: Start: 01-26-2016 End: 03-16-2016 Follow Up Appt 3 months Follow Up Appt 3 months [facility] Work Phone: Start: 01-26-2016 End: 03-16-2016 [facility] Clinic [facility] Work Phone: Start: 01-26-2016 End: 03-16-2016 Follow Up Appt 3 months Follow Up Appt 3 months [facility] Work Phone: Start: 01-26-2016 End: 03-16-2016 [facility]er Clinic [facility] Work Phone: Start: 10-26-2015 End: 03-16-2016 Follow Up Appt 3 months Follow Up Appt 3 months [facility] Work Phone: Start: 10-26-2015 End: 03-16-2016 [facility] Clinic [facility] Work Phone: Start: 10-26-2015 End: 03-16-2016 Follow Up Appt 3 months Follow Up Appt 3 months [facility] Work Phone: Start: 10-26-2015 End: 03-16-2016 Pacer Clinic [facility] Work Phone: Start: 09-28-2015 End: 09-28-2015 *Hepatic Function Panel *Hepatic Function Panel [facility] Work Phone: Start: 09-28-2015 End: 09-28-2015 Follow Up Appt 6 months Follow Up Appt 6 months [facility] Work Phone: Start: 09-28-2015 End: 09-28-2015 Lipid 1996 panel *Lipid Profile CC PCP [facility] Work Phone: Start: 09-28-2015 End: 09-28-2015 MMM MMM [facility] Work Phone: Start: 09-28-2015 End: 09-28-2015 *Hepatic Function Panel *Hepatic Function Panel [facility] Work Phone: Start: 09-28-2015 End: 09-28-2015 Follow Up Appt 6 months Follow Up Appt 6 months [facility] Work Phone: Start: 09-28-2015 End: 09-28-2015 Lipid panel [AGGREGATE] *Lipid Profile CC PCP [facility] Work Phone: Start: 09-28-2015 End: 09-28-2015 MMM MMM [facility] Work Phone: Start: 08-18-2015 End: 08-18-2015 [facility] Work Phone: Start: 08-18-2015 End: 08-18-2015 Follow Up Appt 6 months Follow Up Appt 6 months [facility] Work Phone: Start: 08-18-2015 End: 08-18-2015 [facility] Work Phone: Start: 08-18-2015 End: 08-18-2015 Follow Up Appt 6 months Follow Up Appt 6 months [facility] Work Phone: Start: 07-26-2015 End: 03-16-2016 Follow Up Appt 3 months Follow Up Appt 3 months [facility] Work Phone: Start: 07-26-2015 End: 03-16-2016 Pacer Clinic [facility] Work Phone: Start: 07-26-2015 End: 03-16-2016 Follow Up Appt 3 months Follow Up Appt 3 months [facility] Work Phone: Start: 07-26-2015 End: 03-16-2016 Pacer Clinic [facility] Work Phone: Start: 03-30-2015 End: 03-30-[address] [facility] Work Phone: Start: 03-30-2015 End: 03-16-2016 Follow Up Appt 3 months Follow Up Appt 3 months [facility] Work Phone: Start: 03-30-2015 End: 03-30-2015 Follow Up Appt 6 months Follow Up Appt 6 months [facility] Work Phone: Start: 03-30-2015 End: 03-16-2016 [facility] Clinic [facility] Work Phone: Start: 03-30-2015 End: 03-30-[address] [facility] Work Phone: Start: 03-30-2015 End: 03-16-2016 Follow Up Appt 3 months Follow Up Appt 3 months [facility] Work Phone: Start: 03-30-2015 End: 03-30-2015 Follow Up Appt 6 months Follow Up Appt 6 months [facility] Work Phone: Start: 03-30-2015 End: 03-16-2016 [facility] Clinic [facility] Work Phone: Start: 01-26-2015 End: 07-05-2015 Follow Up Appt 6 months Follow Up Appt 6 months [facility] Work Phone: Start: 01-26-2015 End: 03-24-2015 Pulmonary Function Test - complete Pulmonary Function Test - complete [facility] Work Phone: Start: 01-26-2015 End: 07-05-2015 Pulmonary stress test/simple Pulmonary stress testing; simple (eg, 6-minute walk) [facility] Work Phone: Start: 01-26-2015 End: 07-05-2015 Follow Up Appt 6 months Follow Up Appt 6 months [facility] Work Phone: Start: 01-26-2015 End: 03-24-2015 Pulmonary Function Test - complete Pulmonary Function Test - complete [facility] Work Phone: Start: 01-26-2015 End: 07-05-2015 Pulmonary stress test/simple Pulmonary stress testing; simple (eg, 6-minute walk) [facility] Work Phone: Start: 01-22-2015 End: 03-24-2015 Follow Up Appt 3 months Follow Up Appt 3 months [facility] Work Phone: Start: 01-22-2015 End: 03-24-2015 [facility] Clinic [facility] Work Phone: Start: 01-22-2015 End: 03-24-2015 Follow Up Appt 3 months Follow Up Appt 3 months [facility] Work Phone: Start: 01-22-2015 End: 03-24-2015 [facility] Clinic [facility] Work Phone: Start: 09-24-2014 End: 03-24-2015 Follow Up Appt 3 months Follow Up Appt 3 months [facility] Work Phone: Start: 09-24-2014 End: 03-24-2015 Follow Up Appt 6 months Follow Up Appt 6 months [facility] Work Phone: Start: 09-24-2014 End: 03-24-2015 MMM MMM [facility] Work Phone: Start: 09-24-2014 End: 03-24-2015 [facility] Clinic [facility] Work Phone: Start: 09-24-2014 End: 03-24-2015 Follow Up Appt 3 months Follow Up Appt 3 months [facility] Work Phone: Start: 09-24-2014 End: 03-24-2015 Follow Up Appt 6 months Follow Up Appt 6 months [facility] Work Phone: Start: 09-24-2014 End: 03-24-2015 MMM MMM [facility] Work Phone: Start: 09-24-2014 End: 03-24-2015 Pacer Clinic [facility] Work Phone: Start: 07-28-2014 End: 07-28-2014 Follow Up Appt 6 months Follow Up Appt 6 months [facility] Work Phone: Start: 07-28-2014 End: 07-28-2014 Follow Up Appt 6 months Follow Up Appt 6 months [facility] Work Phone: Start: 06-19-2014 End: 03-24-2015 Follow Up Appt 3 months Follow Up Appt 3 months [facility] Work Phone: Start: 06-19-2014 End: 03-24-2015 Pacer Clinic [facility] Work Phone: Start: 06-19-2014 End: 03-24-2015 Follow Up Appt 3 months Follow Up Appt 3 months [facility] Work Phone: Start: 06-19-2014 End: 03-24-2015 Pacer Clinic [facility] Work Phone: Start: 03-17-2014 End: 03-16-2016 *CBC with Differential *CBC with Differential [facility] Work Phone: Start: 03-17-2014 End: 03-17-2014 PARIMUTUEL CLERK [facility] Work Phone: Start: 03-17-2014 End: 03-24-2015 Follow Up Appt 3 months Follow Up Appt 3 months [facility] Work Phone: Start: 03-17-2014 End: 03-17-2014 Follow Up Appt 6 months Follow Up Appt 6 months E[facility] Work Phone: Start: 03-17-2014 End: 03-16-2016 Lower GI hemoglobin IA Ql (St) *STOB - Stool, Occult Blood [facility] Work Phone: Start: 03-17-2014 End: 03-24-2015 Pacer [facility] Work Phone: Start: 03-17-2014 End: 03-16-2016 *CBC with Differential *CBC with Differential [facility] Work Phone: Start: 03-17-2014 End: 03-17-2014 PARIMUTUEL CLERK [facility] Work Phone: Start: 03-17-2014 End: 03-24-2015 Follow Up Appt 3 months Follow Up Appt 3 months Ecelles Carson Work Phone: Start: 03-17-2014 End: 03-17-2014 Follow Up Appt 6 months Follow Up Appt 6 months Ecelles Carson Work Phone: Start: 03-17-2014 End: 03-16-2016 Hemoglobin by Imm presence in stool *STOB - Stool, Occult Blood [facility] Work Phone: Start: 03-17-2014 End: 03-24-2015 Pacer [facility] Work Phone: Start: 01-27-2014 End: 02-26-2014 Follow Up Appt 6 months Follow Up Appt 6 months [facility] Work Phone: Start: 01-27-2014 End: 02-04-2016 Pulmonary Fuction Test - complete Pulmonary Fuction Test - complete [facility] Work Phone: Start: 01-27-2014 End: 02-04-2016 Pulmonary stress test/simple Pulmonary stress testing; simple (eg, 6-minute walk) [facility] Work Phone: Start: 01-27-2014 End: 02-26-2014 Follow Up Appt 6 months Follow Up Appt 6 months [facility] Work Phone: Start: 01-27-2014 End: 02-04-2016 Pulmonary Fuction Test - complete Pulmonary Fuction Test - complete [facility] Work Phone: Start: 01-27-2014 End: 02-04-2016 Pulmonary stress test/simple Pulmonary stress testing; simple (eg, 6-minute walk) [facility] Work Phone: Start: 12-11-2013 End: 12-11-2013 Device Interrogation Device Interrogation [facility] Work Phone: Start: 12-11-2013 End: 12-11-2013 Echocardiography Echocardiogram (complete) [facility] Work Phone: Start: 12-11-2013 End: 02-26-2014 Follow Up Appt 3 months Follow Up Appt 3 months [facility] Work Phone: Start: 12-11-2013 End: 12-11-2013 MMM MMM [facility] Work Phone: Start: 12-11-2013 End: 02-26-2014 Pacer Clinic [facility] Work Phone: Start: 12-11-2013 End: 12-11-2013 Device Interrogation Device Interrogation [facility] Work Phone: Start: 12-11-2013 End: 12-11-2013 Echocardiography Echocardiogram (complete) [facility] Work Phone: Start: 12-11-2013 End: 02-26-2014 Follow Up Appt 3 months Follow Up Appt 3 months [facility] Work Phone: Start: 12-11-2013 End: 12-11-2013 MMM MMM [facility] Work Phone: Start: 12-11-2013 End: 02-26-2014 Pacer Clinic [facility] Work Phone: Start: 11-04-2013 End: 12-11-2013 Follow Up Appt 3 months Follow Up Appt 3 months [facility] Work Phone: Start: 11-04-2013 End: 12-11-2013 Pacer Clinic [facility] Work Phone: Start: 11-04-2013 End: 12-11-2013 Follow Up Appt 3 months Follow Up Appt 3 months [facility] Work Phone: Start: 11-04-2013 End: 12-11-2013 Pacer Clinic [facility] Work Phone: Start: 10-28-2013 End: 01-05-2014 Echo tthrc r-t 2d w/wom-mode compl spec&colr d Echo Complete with Color Flow [facility] Work Phone: Start: 10-28-2013 End: 02-04-2016 Pulmonary Fuction Test - complete Pulmonary Fuction Test - complete [facility] Work Phone: Start: 10-28-2013 End: 02-04-2016 Pulmonary Fuction Test - complete Pulmonary Fuction Test - complete [facility] Work Phone: Start: 10-28-2013 End: 01-05-2014 Tte w/doppler, complete Echo Complete with Color Flow [facility] Work Phone: Start: 08-05-2013 End: 08-05-2013 Follow Up Appt 3 months Follow Up Appt 3 months [facility] Work Phone: Start: 08-05-2013 End: 08-05-2013 Follow Up Appt 6 months Follow Up Appt 6 months [facility] Work Phone: Start: 08-05-2013 End: 08-05-2013 MMM MMM [facility] Work Phone: Start: 08-05-2013 End: 08-05-2013 Pacer Clinic [facility] Work Phone: Start: 08-05-2013 End: 08-05-2013 Follow Up Appt 3 months Follow Up Appt 3 months [facility] Work Phone: Start: 08-05-2013 End: 08-05-2013 Follow Up Appt 6 months Follow Up Appt 6 months [facility] Work Phone: Start: 08-05-2013 End: 08-05-2013 MMM MMM [facility] Work Phone: Start: 08-05-2013 End: 08-05-2013 Pacer Clinic [facility] Work Phone: Start: 05-06-2013 End: 12-11-2013 Follow Up Appt 3 months Follow Up Appt 3 months [facility] Work Phone: Start: 05-06-2013 End: 12-11-2013 Pacer Clinic [facility] Work Phone: Start: 05-06-2013 End: 12-11-2013 Follow Up Appt 3 months Follow Up Appt 3 months [facility] Work Phone: Start: 05-06-2013 End: 12-11-2013 Pacer Clinic [facility] Work Phone: Start: 01-20-2013 End: 12-11-2013 *BMP *BMP [facility] Work Phone: Start: 01-20-2013 End: 12-11-2013 *CBC with Differential *CBC with Differential [facility] Work Phone: Start: 01-20-2013 End: 11-26-2013 *Hepatic Function Panel *Hepatic Function Panel [facility] Work Phone: Start: 01-20-2013 End: 01-20-2013 PARIMUTUEL CLERK PARIMUTUEL CLERK [facility] Work Phone: Start: 01-20-2013 End: 01-20-2013 Follow Up Appt 3 months Follow Up Appt 3 months [facility] Work Phone: Start: 01-20-2013 End: 01-20-2013 Follow Up Appt 6 months Follow Up Appt 6 months [facility] Work Phone: Start: 01-20-2013 End: 01-20-2013 Follow Up Appt Other Follow Up Appt Other [facility] Work Phone: Start: 01-20-2013 End: 11-26-2013 Lipid 1996 panel *Lipid Profile CC PCP [facility] Work Phone: Start: 01-20-2013 End: 01-20-2013 Pacer Clinic [facility] Work Phone: Start: 01-20-2013 End: 12-11-2013 *BMP *BMP [facility] Work Phone: Start: 01-20-2013 End: 12-11-2013 *CBC with Differential *CBC with Differential [facility] Work Phone: Start: 01-20-2013 End: 11-26-2013 *Hepatic Function Panel *Hepatic Function Panel [facility] Work Phone: Start: 01-20-2013 End: 01-20-2013 PARIMUTUEL CLERK PARIMUTUEL CLERK [facility] Work Phone: Start: 01-20-2013 End: 01-20-2013 Follow Up Appt 3 months Follow Up Appt 3 months [facility] Work Phone: Start: 01-20-2013 End: 01-20-2013 Follow Up Appt 6 months Follow Up Appt 6 months [facility] Work Phone: Start: 01-20-2013 End: 01-20-2013 Follow Up Appt Other Follow Up Appt Other [facility] Work Phone: Start: 01-20-2013 End: 11-26-2013 Lipid panel [AGGREGATE] *Lipid Profile CC PCP [facility] Work Phone: Start: 01-20-2013 End: 01-20-2013 Pacer Clinic Pacer Clinic [facility] Work Phone: Start: 10-15-2012 End: 01-09-2013 Follow Up Appt 3 months Follow Up Appt 3 months [facility] Work Phone: Start: 10-15-2012 End: 01-09-2013 Pacer Clinic Pac[facility] Work Phone: Start: 10-15-2012 End: 01-09-2013 Follow Up Appt 3 months Follow Up Appt 3 months [facility] Work Phone: Start: 10-15-2012 End: 01-09-2013 Pacer Clinic Pacer Clinic [facility] Work Phone: Start: 08-13-2012 End: 01-09-2013 Follow Up Appt 3 months Follow Up Appt 3 months [facility] Work Phone: Start: 08-13-2012 End: 01-09-2013 Pacer Clinic Pacer Clinic [facility] Work Phone: Start: 08-13-2012 End: 01-09-2013 Follow Up Appt 3 months Follow Up Appt 3 months [facility] Work Phone: Start: 08-13-2012 End: 01-09-2013 Pacer Clinic Pac[facility] Clinic [facility] Work Phone: Start: 07-04-2012 End: 07-04-2012 *Hepatic Function Panel *Hepatic Function Panel [facility] Work Phone: Start: 07-04-2012 End: 07-04-2012 Follow Up Appt 6 months Follow Up Appt 6 months [facility] Work Phone: Start: 07-04-2012 End: 07-04-2012 Lipid 1996 panel *Lipid Profile [facility] Work Phone: Start: 07-04-2012 End: 07-04-2012 MMM MMM [facility] Work Phone: Start: 07-04-2012 End: 07-04-2012 Follow Up Appt 6 months Follow Up Appt 6 months [facility] Work Phone: Start: 07-04-2012 End: 07-04-2012 MMM MMM [facility] Work Phone: Start: 07-03-2012 End: 12-11-2013 *Hepatic Function Panel *Hepatic Function Panel [facility] Work Phone: Start: 07-03-2012 End: 12-11-2013 Lipid panel [AGGREGATE] *Lipid Profile [facility] Work Phone: Start: 07-03-2012 End: 12-11-2013 *Hepatic Function Panel *Hepatic Function Panel [facility] Work Phone: Start: 07-03-2012 End: 12-11-2013 Lipid panel [AGGREGATE] *Lipid Profile [facility] Work Phone: Start: 05-09-2012 End: 07-04-2012 Follow Up Appt 3 months Follow Up Appt 3 months [facility] Work Phone: Start: 05-09-2012 End: 07-04-2012 Pacer Clinic Pacer Clinic [facility] Work Phone: Start: 05-09-2012 End: 07-04-2012 Follow Up Appt 3 months Follow Up Appt 3 months [facility] Work Phone: Start: 05-09-2012 End: 07-04-2012 Pacer Clinic Pacer Clinic [facility] Work Phone: Start: 01-04-2012 End: 01-04-2012 Follow Up Appt 6 months Follow Up Appt 6 months [facility] Work Phone: Start: 01-04-2012 End: 01-04-2012 Follow Up Appt 6 months Follow Up Appt 6 months [facility] Work Phone: Start: 09-11-2011 End: 07-04-2012 *Hepatic Function Panel *Hepatic Function Panel [facility] Work Phone: Start: 09-11-2011 End: 07-04-2012 Lipid 1996 panel *Lipid Profile [facility] Work Phone: Start: 09-11-2011 End: 07-04-2012 *Hepatic Function Panel *Hepatic Function Panel [facility] Work Phone: Start: 09-11-2011 End: 07-04-2012 Lipid panel [AGGREGATE] *Lipid Profile [facility] Work Phone: Start: 04-11-2011 End: 06-06-2011 *BMP *BMP [facility] Work Phone: Start: 04-11-2011 End: 06-06-2011 *Hepatic Function Panel *Hepatic Function Panel [facility] Work Phone: Start: 04-11-2011 End: 06-06-2011 Lipid 1996 panel *Lipid Profile [facility] Work Phone: Start: 04-11-2011 End: 06-06-2011 Magnesium mass conc *Magnesium [facility] Work Phone: Start: 04-11-2011 End: 06-06-2011 T4 mass conc *T4 (Total) [facility] Work Phone: Start: 04-11-2011 End: 06-06-2011 Thyrotropin Qn *TSH [facility] Work Phone: Start: 04-11-2011 End: 06-06-2011 *BMP *BMP [facility] Work Phone: Start: 04-11-2011 End: 06-06-2011 *Hepatic Function Panel *Hepatic Function Panel [facility] Work Phone: Start: 04-11-2011 End: 06-06-2011 Lipid panel [AGGREGATE] *Lipid Profile [facility] Work Phone: Start: 04-11-2011 End: 06-06-2011 Magnesium *Magnesium [facility] Work Phone: Start: 04-11-2011 End: 06-06-2011 Thyroid stimulating hormone (TSH) *TSH [facility] Work Phone: Start: 04-11-2011 End: 06-06-2011 Thyroxine (T4) *T4 (Total) [facility] Work Phone: Start: 04-04-2011 End: 04-04-2011 Echocardiography Echocardiogram (complete) [facility] Work Phone: Start: 04-04-2011 End: 04-04-2011 Follow Up Appt 6 weeks Follow Up Appt 6 weeks [facility] Work Phone: Start: 04-04-2011 End: 04-04-2011 Nuclear stress test -adenosine Nuclear stress test -adenosine [facility] Work Phone: Start: 04-04-2011 End: 04-04-2011 Echocardiography Echocardiogram (complete) [facility] Work Phone: Start: 04-04-2011 End: 04-04-2011 Follow Up Appt 6 weeks Follow Up Appt 6 weeks [facility] Work Phone: Start: 04-04-2011 End: 04-04-2011 Nuclear stress test -adenosine Nuclear stress test -adenosine [facility] Work Phone: Immunizations Immunization Date Immunization Notes Care Provider Timur lind 10-13-2022 tetanus toxoid, redu jose diphtheria toxoid, and acellular pertussis vaccine, 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 [facility] Payers Date Payer Category Payer Medicare [id number] 2022 Private Health Insurance [id number] 1955 Unknown [id number] Social History Date Type Detail Facility Start: 10-13-2022 Tobacco smoking status Ex-smoker (fi nding) [facility] Sex Assigned At Male [facility] Medical Equipment Procedure Code Equipment Code Equipment Origin al Text Equipment Identifier Dates Unknown Unknown 02/19/10 Unknown Unknown FDA Start: 02-19-2010 Functional Status Date Assessment Result Facility 10-14-2022 Functional Status Room check performed [facility] 10-14-2022 Functional Status [facility] 10-13-2022 Functional Status Sensory Deficits None A [facility] Mental Status Date Assessment Result Facility 10-14-2022 [facility] 10-13-2022 Mental Status [facility] 10-13-2022 Mental Status [facility] Clinical Note 10-18-2022 Note Date & Type Note Facility 10-18-2022 Note . MICRO - Microbiology PROCEDURE: Blood Culture (bacterial) [*1] SOURCE: Blood BODY SITE: COLLECTED DATE/TIME: 10/13/2022 17:14 EDT RECEIVED DATE/TIME: 10/13/2022 19:20 EDT START DATE/TIME: 10/13/2022 19:20 EDT FREE TEXT SOURCE: FINAL REPORTS Final Report [] Verified Date/Time/Personnel: 10/18/2022 19:59 EDT Blood Culture: No Growth at 5 days. PRELIMINARY REPORTS Preliminary Report [] Verified Date/Time/Personnel: 10/13/2022 19:59 EDT Culture has been received in lab and is no growth to date. Routine cultures are held for 5 days. Performing Locations *1: This test was performed at: [facility], [address] [place] [address], [facility] , [facility] ([place]) Clinical Note 10-18-2022 Note Date & Type Note Facility 10-18-2022 Note . MICRO - Microbiology PROCEDURE: Blood Culture (bacterial) [*1] SOURCE: Blood BODY SITE: COLLECTED DATE/TIME: 10/13/2022 17:14 EDT RECEIVED DATE/TIME: 10/13/2022 19:20 EDT START DATE/TIME: 10/13/2022 19:20 EDT FREE TEXT SOURCE: FINAL REPORTS Final Report [] Verified Date/Time/Personnel: 10/18/2022 19:59 EDT Blood Culture: No Growth at 5 days. PRELIMINARY REPORTS Preliminary Report [] Verified Date/Time/Personnel: 10/13/2022 19:59 EDT Culture has been received in lab and is no growth to date. Routine cultures are held for 5 days. Performing Locations *1: This test was performed at: [address], [address] [place] [address] ([place]) Clinical Note 10-16-2022 Note Date & Type Note Facility 10-16-2022 Note . MICRO - Microbiology PROCEDURE: Culture Wound Aerobic with Gram Stain [*1] SOURCE: Wound (surface) BODY SITE: Toe COLLECTED DATE/TIME: 10/13/2022 17:14 EDT RECEIVED DATE/TIME: 10/13/2022 19:42 EDT START DATE/TIME: 10/13/2022 19:42 EDT FREE TEXT SOURCE: FINAL REPORTS Final Report [] Verified Date/Time/Personnel: 10/16/2022 11:03 EDT Light Gram Negative Rods Light Gram Negative Rods #2 Few Gram Negative Rods #3 Few Gram Negative Rods #4 Light Presumptive Group D Enterococcus Due to the presence of numerous mixed bacteria, sensitivity testing on individual isolates is not routinely performed. Plates will be held 48 hours. Sensitivity testing not indicated. Final report to follow. PRELIMINARY REPORTS Preliminary Report [] Verified Date/Time/Personnel: 10/15/2022 13:31 EDT Light Gram Negative Rods Light Gram Negative Rods #2 Few Gram Negative Rods #3 Light Normal skin tonya present. Sensitivity testing not indicated. Final report to follow. Preliminary Report [] Verified Date/Time/Personnel: 10/14/2022 09:57 EDT Culture results pending. STAINS GS [] Verified Date/Time/Personnel: 10/13/2022 20:25 EDT Rare Gram Positive Cocci Rare Gram Positive Rods Performing Locations *1: This test was performed at: [address], [address] [place] [address] ([place]) Evaluation + Plan note 10-14-2022 Note Date & Type Note Facility 1. Toe pain-swelling Acute, new onset *Patient reports clipping his toenails about 2 weeks ago and nicking his left fourth toe. He had bleeding from this toe for about 3 days before getting the bleeding to stop. He noticed about 3 days ago that his left fourth toe had turned black. Came in last night due to concerns for infection. *Patient administered Zosyn and Vancomycin in the ED. *Consult placed to Dr. Rubén Kenney, podiatry, for recommendation. *Continue Vancomycin IV - pharmacy to dose. *Start Ceftriaxone 1 gram IV daily. *Continue pain medication and antiemetics as needed. *Repeat CBC and BMP in the am. 2. Diabetes Chronic, controlled *HgbA1c 8.1% on morning labs. *Blood sugar checks before meals and at bedtime. *Cover with sliding scale insulin. *Start diabetic diet. *Blood sugar goal 180 or less and avoid hypoglycemia. 3. CHF (congestive heart failure) Chronic, stable *Continue current home medications. *Monitor for fluid overload. 4. HTN (hypertension) Chronic, controlled *Continue current antihypertensives. *SBP goal of 140 or less. DVT prophylaxis with Xarelto. Code status: Full Code.. Labs, diagnostic test and progress notes reviewed as noted in HPI. Plan of care discussed with patient. All questions answered. Patient verbalizes understanding and is agreeable with plan of care. This case was discussed with collaborating physician, Dr. Antonio Degroot. 55 minutes spent reviewing past diagnostic tests, reviewing lab results, vital sign trends, medical history, reviewing medications and ordering home medications, examining patient, collaborating with physician, and documenting in chart. [facility] Clinical Note 10-14-2022 Note Date & Type Note Facility 10-14-2022 Note Date of Service 10/14/2022 Chief Complaint Patient complains of left-sided toe pain. Patient states that he is diabetic and on a blood thinner. Patient went to clip his toe nail the other day and it started bleeding and he could not get it to stop. Patient feels like it is now infected. History of Present Illness Patient is a 67-year-old male, who follows with Dr. Humble Garcia with a past medical history significant for type 2 diabetes, hypertension, hyperlipidemia, heart failure and DVT, presents to [facility] emergency department with the chief complaint on left toe pain. Patient reports that he clipped his toenails about 2 weeks ago and accidentally nicked his left fourth toe. He is on a blood thinner and had trouble getting the bleeding to stop. It actually took about 3 days for the bleeding to fully stop. He states that he had some erythema of the the left fourth toe but then noticed about 3 days ago that it turned black. He has peripheral neuropathy and denies any pain in his foot or toe. He presented for evaluation today due to concerns that the toe is infected. He denies any fever, chills, cough, shortness of breath, chest pain, abdominal pain, nausea or dysuria. In the emergency department, x-ray of no acute osseous abnormality. Specifically, no convincing evidence of acute osteomyelitis by radiograph. CBC unremarkable. BMP significant for glucose 410, BUN 25, and creatinine 1.39. ESR normal, CRP mildly elevated 6.1. Lactic acid 3.4 on arrival. Patient was administered 1 liter of NS, 1 gram Vancomycin, 3.375 grams and tetanus booster in the ED. The case was discussed with the ED physician who recommended admission for podiatry consult as well as possible MRI of the left foot to rule out osteomyelitis. Patient was transferred to medical surgical unit for further evaluation and treatment. We will consult Dr. Rubén Kenney, podiatry, for recommendation. We will continue Vancomycin IV - pharmacy to dose. We will start Ceftriaxone 1 gram IV daily. We will continue IV fluids overnight. Continue pain medication and antiemetics as needed. Repeat CBC and BMP in the am. Patient seen and evaluated this morning while resting in bed. He states that he feels fine today. He denies any significant pain in his left fourth toe or foot for that matter due to neuropathy. Patient was just seen by Dr. Kenney who states he is fine with patient discharging on oral antibiotics or staying for IV antibiotics. Dr. Kenney will arrange for patient to see Dr. Peacock, vascular surgery, in the next week or so and will follow-up with patient as an outpatient next week. All questions answered. Review of Systems Review of Systems: Reviewed in detail, including general health, HEENT, cardiovascular, respiratory, gastrointestinal, genitourinary, endocrine, musculoskeletal, neurologic, vascular, skin, and psychiatric. All are negative except for those listed in the History of Present Illness. Physical Exam Vitals and Measurements T: 36.8 C (Oral) TMIN: 36.5 C (Oral) TMAX: 37.0 C (Oral) HR: 76(Monitored) RR: 18 BP: 136/61 SpO2: 93% HT: 193 cm WT: 112.2 kg BMI: 30.39 Weight Current Weight Dosing Weight: 113.2 kg (10/13/22) Current Weight: 112.2 kg (10/14/22) General: No acute distress. Patient is alert and appropriate. Skin: No rash. Skin is warm, dry and intact. HEENT: Head is normocephalic, atraumatic. Pupils are equal, round and reactive. Neck: Supple. No lymphadenopathy, thyromegaly. Lungs: Bilaterally clear but diminished without crepitation or wheeze. Unlabored. Heart: Heart is regular rhythm, S1, S2. No murmurs, gallops or rubs. Abdomen: Abdomen is soft, nontender. Bowels sounds present in all quadrants. Extremities: No clubbing, cyanosis, or edema. Peripheral pulses palpable. No calf tenderness. Left fourth toe blackened. Neurological: Patient is awake and alert to person, place and time. Following simple commands, moving all extremities. Lab Results 10/14 05:22 WBC: 9.9 Hgb: 12.7 L Hct: 37.2 L Platelet: 149 Neutrophil %: 62.7 Glucose Level: 379 H Sodium Level: 137 Potassium Level: 4.2 BUN: 22 H Creatinine Lvl (s): 1.21 10/13 17:14 WBC: 9.8 Hgb: 14.5 Hct: 42.7 Platelet: 179 Neutrophil %: 57.8 Glucose Level: 410 C Sodium Level: 140 Potassium Level: 4.3 BUN: 25 H Creatinine Lvl (s): 1.39 H Imaging Results and Diagnostics XR Foot Minimum 3 Views Left Result Date: October 13, 2022 Verified By: RIZWAN CORTEZ MD CLINICAL STATEMENT: IMPRESSION: No acute osseous abnormality. Specifically, no convincing evidence of acute osteomyelitis by radiograph. Please note early acute osteomyelitis may not be evident on initial radiographs. If there is a strong concern for acute osteomyelitis, MRI of the foot can be obtained. I have personally reviewed the images of this examination and agree with the resident's findings and interpretation. Assessment/Plan 1. Toe pain-swelling Acute, new onset *Patient reports clipping his toenails about 2 weeks ago and nicking his left fourth toe. He had bleeding from this toe for about 3 days before getting the bleeding to stop. He noticed about 3 days ago that his left fourth toe had turned black. Came in last night due to concerns for infection. *Patient administered Zosyn and Vancomycin in the ED. *Consult placed to Dr. Rubén Kenney, podiatry, for recommendation. *Continue Vancomycin IV - pharmacy to dose. *Start Ceftriaxone 1 gram IV daily. *Continue pain medication and antiemetics as needed. *Repeat CBC and BMP in the am. 2. Diabetes Chronic, controlled *HgbA1c 8.1% on morning labs. *Blood sugar checks before meals and at bedtime. *Cover with sliding scale insulin. *Start diabetic diet. *Blood sugar goal 180 or less and avoid hypoglycemia. 3. CHF (congestive heart failure) Chronic, stable *Continue current home medications. *Monitor for fluid overload. 4. HTN (hypertension) Chronic, controlled *Continue current antihypertensives. *SBP goal of 140 or less. DVT prophylaxis with Xarelto. Code status: Full Code.. Labs, diagnostic test and progress notes reviewed as noted in HPI. Plan of care discussed with patient. All questions answered. Patient verbalizes understanding and is agreeable with plan of care. This case was discussed with collaborating physician, Dr. Antonio Degroot. 55 minutes spent reviewing past diagnostic tests, reviewing lab results, vital sign trends, medical history, reviewing medications and ordering home medications, examining patient, collaborating with physician, and documenting in chart. Problem List/Past Medical History Ongoing No qualifying data Historical No qualifying data Procedure/Surgical History Tonsillectomy and adenoidectomy Coronary artery bypass graft Cholecystectomy ICD - Disorder of implantable cardiac defibrillator Medications Home Medications (20) Active Albuterol (Eqv-ProAir HFA) 90 mcg/inh inhalation aerosol 2 puff(s), Inhalation, q4h allopurinol 100 mg oral tablet 100 mg = 1 tab(s), Oral, BID atorvastatin 80 mg oral tablet 80 mg = 1 tab(s), Oral, qDay carvedilol 6.25 mg oral tablet 6.25 mg = 1 tab(s), Oral, BID ciprofloxacin 250 mg oral tablet 500 mg = 2 tab(s), Oral, q12h clindamycin 300 mg oral capsule 300 mg = 1 cap(s), Oral, q6hr diclofenac 1% topical gel See Instructions, PRN ezetimibe 10 mg oral tablet 10 mg = 1 tab(s), Oral, qDay furosemide 40 mg oral tablet 40 mg = 1 tab(s), Oral, qDay lactobacillus acidophilus oral tablet 1 tab(s), Oral, BID Levemir 100 units/mL 10 mL vial 86 unit(s), Subcutaneous, BID levocetirizine 5 mg oral tablet 5 mg = 1 tab(s), Oral, Daily Linzess 145 mcg oral capsule 145 mcg = 1 cap(s), Oral, qDay losartan 50 mg oral tablet 50 mg = 1 tab(s), Oral, qDay NovoLOG 100 units/mL injectable solution See Instructions NovoLOG 100 units/mL injectable solution 80 unit(s), Subcutaneous, BIDAC oxyCODONE 5 mg oral tablet ( IMMEDIATE release ) 5 mg = 1 tab(s), PRN, Oral, TID traZODone 100 mg oral tablet 100 mg = 1 tab(s), Oral, qHS Trulicity Pen 4.5 mg/0.5 mL subcutaneous solution 0.5 mL, Subcutaneous, qWeek Xarelto 20 mg oral tablet 20 mg = 1 tab(s), Oral, qAM Allergies No Known Medication Allergies Social History Alcohol Use: Past., 10/13/2022 Substance Abuse Use: Past., 10/13/2022 Tobacco Nicotine Use: Former smoker, quit more than 30 days ago., 10/13/2022 Family History Alcoholic: Brother. Diabetes mellitus: Father and Brother. Heart disease: Father and Brother. Immunizations tetanus/diphth/pertuss (Tdap) adult/adol: 0.5 mL (10/13/22) Code Status Code Status - Ordered -- 10/13/22 18:58:00 EDT, Full Code, Constant Order Digitally Signed by TU FLORES on 10/14/2022 02:11 PM [facility] Discharge instructions 10-14-2022 Note Date & Type Note Facility 10-14-2022 Hospital Discharg e instructions Patient Education 10/14/2022 10:57:34 Diabetes Mellitus and Foot Care Diabetes Mellitus and Foot Care Foot care is an important part of your health, especially when you have diabetes. Diabetes may cause you to have problems because of poor blood flow (circulation) to your feet and legs, which can cause your skin to: Become thinner and vacuum drier operator. 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 Heal more slowly. Peel and crack. You may also have nerve damage (neuropathy) in your legs and feet, causing decreased feeling in them. This means that you may not notice minor injuries to your feet that could lead to more serious problems. Noticing and addressing any potential problems early is the best way to prevent future foot problems. How to care for your feet Foot hygiene Wash your feet daily with warm water and mild soap. Do not use hot water. Then, pat your feet and the areas between your toes until they are completely dry. Do not soak your feet as this can dry your skin. Trim your toenails straight across. Do not dig under them or around the cuticle. File the edges of your nails with an emery board or nail file. Apply a moisturizing lotion or petroleum jelly to the skin on your feet and to dry, brittle toenails. Use lotion that does not contain alcohol and is unscented. Do not apply lotion between your toes. Shoes and socks Wear clean socks or stockings every day. Make sure they are not too tight. Do not wear knee-high stockings since they may decrease blood flow to your legs. Wear shoes that fit properly and have enough cushioning. Always look in your shoes before you put them on to be sure there are no objects inside. To break in new shoes, wear them for just a few hours a day. This prevents injuries on your feet. Wounds, scrapes, corns, and calluses Check your feet daily for blisters, cuts, bruises, sores, and redness. If you cannot see the bottom of your feet, use a mirror or ask someone for help. Do not cut corns or calluses or try to remove them with medicine. If you find a minor scrape, cut, or break in the skin on your feet, keep it and the skin around it clean and dry. You may clean these areas with mild soap and water. Do not clean the area with peroxide, alcohol, or iodine. If you have a wound, scrape, corn, or callus on your foot, look at it several times a day to make sure it is healing and not infected. Check for: ?Redness, swelling, or pain. ?Fluid or blood. ?Warmth. ?Pus or a bad smell. General instructions Do not cross your legs. This may decrease blood flow to your feet. Do not use heating pads or hot water bottles on your feet. They may burn your skin. If you have lost feeling in your feet or legs, you may not know this is happening until it is too late. Protect your feet from hot and cold by wearing shoes, such as at the beach or on hot pavement. Schedule a complete foot exam at least once a year (annually) or more often if you have foot problems. If you have foot problems, report any cuts, sores, or bruises to your health care provider immediately. Contact a health care provider if: You have a medical condition that increases your risk of infection and you have any cuts, sores, or bruises on your feet. You have an injury that is not healing. You have redness on your legs or feet. You feel burning or tingling in your legs or feet. You have pain or cramps in your legs and feet. Your legs or feet are numb. Your feet always feel cold. You have pain around a toenail. Get help right away if: You have a wound, scrape, corn, or callus on your foot and: ?You have pain, swelling, or redness that gets worse. ?You have fluid or blood coming from the wound, scrape, corn, or callus. ?Your wound, scrape, corn, or callus feels warm to the touch. ?You have pus or a bad smell coming from the wound, scrape, corn, or callus. ?You have a fever. ?You have a red line going up your leg. Summary Check your feet every day for cuts, sores, red spots, swelling, and blisters. Moisturize feet and legs daily. Wear shoes that fit properly and have enough cushioning. If you have foot problems, report any cuts, sores, or bruises to your health care provider immediately. Schedule a complete foot exam at least once a year (annually) or more often if you have foot problems. This information is not intended to replace advice given to you by your health care provider. Make sure you discuss any questions you have with your health care provider. Document Released: 02/02/2001 Document Revised: 03/20/2018 Document Reviewed: 03/09/2017 [employer] Patient Education 2020 [employer]. Follow Up Care 10/13/2022 16:14:15 With:RUBÉN KENNEY DPM, Surgery Address: [address] [facility] [address] [address] [facility] [place] [address]- When:5 to 7 days Comments:call office to schedule an appointment next week with Dr. Kenney. He will arrange for you to see jahaira Real. With:HUMBLE GARCIA MD Address: [facility] [address] [place] [address]- When:5 to 7 days Comments:post-hospitalization follow-up [facility] Clinical Note 10-14-2022 Note Date & Type Note Facility 10-14-2022 Note Discharge Instructions Thank you for allowing [facility] to assist you with your healthcare needs. The following is important discharge information regarding your hospital visit. Your Care Team [facility] Your Diagnosis Toe pain-swelling What to do next Instructions From Your Doctor You were admitted due to a suspected infection of your left 4th digit. We treated you with Vancomycin IV and Ceftriaxone IV overnight. You were seen by Dr. Kenney this morning who does not feel that this is a true infection or osteomyelitis. He does feel that the toe is ischemic and you need to follow-up with vascular surgery soon. Dr. Kenney felt that you can be discharged on oral antibiotics for [address] Kenney would like to see you in his office next week for a follow-up and stated that he would contact Dr. Peacock to get you scheduled in his office for vascular consult next week. If you have any new or worsening problems, please return to the ED. Follow Up Appointments Follow Up with RUBÉN KENNEY DPM, Surgery When Within 5 to 7 days Why: call office to schedule an appointment next week with Dr. Kenney. He will arrange for you to see Dr. Peacock vascular. Where: [address] [facility] [address] [facility] [place] [address]- Follow Up with HUMBLE GARCIA MD When Within 5 to 7 days Why: post-hospitalization follow-up Where: [facility] [address] [place] [address]- The Following Activity and Diet Have Been Ordered for You Discharge Activity - Ordered -- Resume your pre-hospitalization activity, 10/14/22 11:10:00 EDT Discharge Diet - Ordered -- No changes were made to your diet during your hospital stay. Please resume your pre hospitalization diet on discharge., 10/14/22 11:10:00 EDT The Following Equipment Has Been Ordered for You No qualifying data available. The Following Treatments Have Been Ordered for You Discharge Labs No qualifying data available. Discharge Radiology No qualifying data available. Other Therapies No qualifying data available. Post Acute Orders No qualifying data available. Someone Will Contact You Regarding These Home Health Referrals No home referrals have been ordered for you. No one will call you. Allergies No Known Medication Allergies Immunizations This Visit Given Vaccine Datetetanus/diphth/pertuss (Tdap) adult/adol 10/13/2022 Medications Please ask your primary doctor or pharmacist before taking any other medication not listed, including over the counter drugs, herbal medications, vitamins and or supplements as they may interact with your home medications. What How Much When Instructions Last Dose New ciprofloxacin (ciprofloxacin 250 mg oral tablet) 2 tab(s) by mouth Every 12 hours Duration: 14 Days Pickup at [email or web address] n/a New clindamycin (clindamycin 300 mg oral capsule) 1 cap by mouth Every 6 hours Duration: 14 Days Pickup at [email or web address] n/a New lactobacillus acidophilus (lactobacillus acidophilus oral tablet) 1 tab(s) by mouth Two (2) times a day Pickup at [email or web address] n/a Unchanged albuterol (Albuterol (Eqv-ProAir HFA) 90 mcg/ inh inhalation aerosol) 2 puff(s) by inhalation Every 4 hours INHALE 1-2 PUFFS BY MOUTH EVERY 4 HOURS NEEDED FOR COUGH OR BEFORE OTHER INHALERS. n/a Unchanged allopurinol (allopurinol 100 mg oral tablet) 1 tab(s) by mouth Two (2) times a day 9 AM Unchanged atorvastatin (atorvastatin 80 mg oral tablet) 1 tab(s) by mouth Once a day 10 PM 10/13 Unchanged carvedilol (carvedilol 6.25 mg oral tablet) 1 tab(s) by mouth Two (2) times a day 9 AM Unchanged diclofenac topical (diclofenac 1% topical gel) See instructions 4 gram(s) Topical QID n/a Unchanged dulaglutide (Trulicity Pen 4.5 mg/ 0.5 mL subcutaneous solution) 0.5 Milliliter Subcutaneous Every week rotate injection sites n/a Unchanged ezetimibe (ezetimibe 10 mg oral tablet) 1 tab(s) by mouth Once a day 9 AM Unchanged furosemide (furosemide 40 mg oral tablet) 1 tab(s) by mouth Once a day 9 AM Unchanged insulin aspart (Novolog) (NovoLOG 100 units/ mL injectable solution) 80 unit(s) Subcutaneous Two (2) times daily before meals 9 AM Unchanged insulin aspart (Novolog) (NovoLOG 100 units/ mL injectable solution) See instructions 80 unit(s) Subcutaneous BID 9 AM Unchanged insulin detemir (Levemir) (Levemir 100 units/ mL 10 mL vial) 86 unit(s) Subcutaneous Two (2) times a day 9 AM Unchanged levocetirizine (levocetirizine 5 mg oral tablet) 1 tab(s) by mouth Every day n/a Unchanged linaclotide (Linzess 145 mcg oral capsule) 1 cap by mouth Once a day n/a Unchanged losartan (losartan 50 mg oral tablet) 1 tab(s) by mouth Once a day 9 AM Unchanged oxyCODONE (oxyCODONE 5 mg oral tablet ( IMMEDIATE release )) 1 tab(s) by mouth Three (3) times a day as needed for for pain n/a Unchanged rivaroxaban (Xarelto 20 mg oral tablet) 1 tab(s) by mouth Once a day (in the morning) 9 AM Unchanged traZODone (traZODone 100 mg oral tablet) 1 tab(s) by mouth Daily at bedtime Take ONE-HALF to 1 (ONE) Tablet BY MOUTH AT bedtime as needed for sleep 10 PM 10/13 Pharmacy Information [email or web address]: [address] [place], [place] [id number] [phone] Please take this list to your next doctor s visit. Bring all medications you take, including over the counter medications, herbals and other supplements with you to your doctor s visit. Patients and families are reminded to discard old lists and to update any records with all medication providers or retail pharmacies. Education Materials Diabetes Mellitus and Foot Care Foot care is an important part of your health, especially when you have diabetes. Diabetes may cause you to have problems because of poor blood flow (circulation) to your feet and legs, which can cause your skin to: Become thinner and vacuum drier operator. 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 Heal more slowly. Peel and crack. You may also have nerve damage (neuropathy) in your legs and feet, causing decreased feeling in them. This means that you may not notice minor injuries to your feet that could lead to more serious problems. Noticing and addressing any potential problems early is the best way to prevent future foot problems. How to care for your feet Foot hygiene Wash your feet daily with warm water and mild soap. Do not use hot water. Then, pat your feet and the areas between your toes until they are completely dry. Do not soak your feet as this can dry your skin. Trim your toenails straight across. Do not dig under them or around the cuticle. File the edges of your nails with an emery board or nail file. Apply a moisturizing lotion or petroleum jelly to the skin on your feet and to dry, brittle toenails. Use lotion that does not contain alcohol and is unscented. Do not apply lotion between your toes. Shoes and socks Wear clean socks or stockings every day. Make sure they are not too tight. Do not wear knee-high stockings since they may decrease blood flow to your legs. Wear shoes that fit properly and have enough cushioning. Always look in your shoes before you put them on to be sure there are no objects inside. To break in new shoes, wear them for just a few hours a day. This prevents injuries on your feet. Wounds, scrapes, corns, and calluses Check your feet daily for blisters, cuts, bruises, sores, and redness. If you cannot see the bottom of your feet, use a mirror or ask someone for help. Do not cut corns or calluses or try to remove them with medicine. If you find a minor scrape, cut, or break in the skin on your feet, keep it and the skin around it clean and dry. You may clean these areas with mild soap and water. Do not clean the area with peroxide, alcohol, or iodine. If you have a wound, scrape, corn, or callus on your foot, look at it several times a day to make sure it is healing and not infected. Check for: ? Redness, swelling, or pain. ? Fluid or blood. ? Warmth. ? Pus or a bad smell. General instructions Do not cross your legs. This may decrease blood flow to your feet. Do not use heating pads or hot water bottles on your feet. They may burn your skin. If you have lost feeling in your feet or legs, you may not know this is happening until it is too late. Protect your feet from hot and cold by wearing shoes, such as at the beach or on hot pavement. Schedule a complete foot exam at least once a year (annually) or more often if you have foot problems. If you have foot problems, report any cuts, sores, or bruises to your health care provider immediately. Contact a health care provider if: You have a medical condition that increases your risk of infection and you have any cuts, sores, or bruises on your feet. You have an injury that is not healing. You have redness on your legs or feet. You feel burning or tingling in your legs or feet. You have pain or cramps in your legs and feet. Your legs or feet are numb. Your feet always feel cold. You have pain around a toenail. Get help right away if: You have a wound, scrape, corn, or callus on your foot and: ? You have pain, swelling, or redness that gets worse. ? You have fluid or blood coming from the wound, scrape, corn, or callus. ? Your wound, scrape, corn, or callus feels warm to the touch. ? You have pus or a bad smell coming from the wound, scrape, corn, or callus. ? You have a fever. ? You have a red line going up your leg. Summary Check your feet every day for cuts, sores, red spots, swelling, and blisters. Moisturize feet and legs daily. Wear shoes that fit properly and have enough cushioning. If you have foot problems, report any cuts, sores, or bruises to your health care provider immediately. Schedule a complete foot exam at least once a year (annually) or more often if you have foot problems. This information is not intended to replace advice given to you by your health care provider. Make sure you discuss any questions you have with your health care provider. Document Released: 02/02/2001 Document Revised: 03/20/2018 Document Reviewed: 03/09/2017 [employer] Patient Education 2020 [employer]. Additional Information VACCINATE! IT SAVES LIVES! Members of the community who have not yet received the COVID-19 vaccine and would like to receive it can visit one of [facility] vaccine clinics. There are many vaccine clinic locations within the [facility]. For locations and available times, please visit [email or web address] [email or web address] It is important to note that some COVID mobile vaccine clinics are held outdoors and may be canceled in rainy or stormy conditions. To learn more about pediatric vaccinations (ages 5-11), we invite you to visit the [facility] webpage. [email or web address].[email or web address].org/pages/2 599-Hvcbf-Pjkvmjuttxv-Frequently-Asked -Questions.html To learn more about the COVID-19 vaccine, we invite you to visit the CDC website for a list of frequently asked questions.https://www.cdc.gov/coronavi manuela/2019-ncov/vaccines/faq.html [facility] Patient Portal Access Instructions: Stay connected with your healthcare team and access your personal medical information anytime with the [facility] Patient Portal. Please follow the directions below to create your [facility] account: 1.Access the email account you provided upon registration to the hospital/physician office.2.Look for an invitation email from [facility].3.Open the email and access the invitation link: Accept Invitation to [facility].4.Fill in the required nunes to create your account. To access your account, visit [email or web address]. Click the blue button labeled Access Patient Portal and then log in with the username and password that you created in the steps above. You will be able to view your test results, lab results, a summary of your visits, upcoming appointments and more. There is also a convenient messaging option where you can send secure messages to your provider. In addition, you will have the ability to download any documents or summaries to your computer and/or send the information securely to a physician. Remember that your healthcare information is confidential, so carefully consider who you will allow to register on the [facility] Patient Portal for access to your information. You can also access the [facility] Patient Portal on the [facility] rhett. Simply click on Patient Portal and then log into your account. If you would like to receive a full copy of your medical records, please contact the [facility] Medical Records Department by calling [phone], Sunday through Sunday between 8 a.m. and 4:30 p.m. HOW TO SAFELY DISPOSE OF PRESCRIPTION MEDICATIONS Please use one of the following methods to safely dispose of your unused medications. 1.Use a drug disposal kit: the drug disposal pouch allows you to safely discard your old and unused drugs. Ask your nurse to give you one when you are discharged.2.Visit a local take-back location: Many local pharmacies and police departments have programs that collect old and unwanted prescription drugs. Call your local pharmacy or go to http://[employer]/5G3Bm6t to find one close to you.3.Make use of household items: Use cat litter or old coffee grounds to dispose medications if other options are not available. Mix your drugs with these household products, seal them in an airtight container and throw it into the garbage. Call [facility]: [phone] to be sure your drugs can be disposed of in this way. Some medicines may require a different approach.4.Never flush your medications down the toilet. IF YOU HAVE BEEN PRESCRIBED AN OPIOID FOR PAIN If you have been prescribed an opioid (such as hydrocodone, oxycodone or morphine), it is critical to understand the possible side effects and risks of opioid pain medications. Even when taken as directed, opioids can have several side effects including: Tolerance, meaning you might need to take more of a medication for the same pain relief. Nausea, vomiting and/or constipation. Sleepiness, dizziness, dry mouth, confusion, depression or itching. Physical dependence, meaning you have withdrawal symptoms when a medication is stopped, can develop within a few days. KNOW YOUR RESPONSIBILITIES It is important to know exactly how much and how often to take the opioid pain medications you are prescribed. Never take opioids in higher amounts or more often than prescribed. Do not combine opioids with alcohol or other drugs that cause drowsiness, such as benzodiazepines, also known as benzos, including diazepam and alprazolam, muscle relaxants or sleep aids. Never sell or share prescription opioids. This is illegal. Store opioids in a secure place and out of reach of others (including children, family, friends and visitors). The last page of this document has been signed and retained as a CHART COPY. Signatures Patient Education Materials Diabetes Mellitus and Foot Care Medication Leaflets My discharge plan and instructions have been reviewed and explained to me and I,PETE ORTIZ understand my current condition and have read and understand these discharge instructions. I have received a written copy of the plan/instructions. If I have questions, I am aware that I should contact my doctor. 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 HISTORY: ORDERING SYSTEM PROVIDED HISTORY: Reason for Exam: 4th digit infection Pain FINDINGS: No acute fracture or dislocation. No osseous erosion. No periosteal reaction. Varying degrees of multifocal degenerative change. Vascular calcifications. No radiopaque foreign body is present. IMPRESSION: No acute osseous abnormality. Specifically, no convincing evidence of acute osteomyelitis by radiograph. Please note early acute osteomyelitis may not be evident on initial radiographs. If there is a strong concern for acute osteomyelitis, MRI of the foot can be obtained. I have personally reviewed the images of this examination and agree with the resident's findings and interpretation. Interpreted by: Rizwan Cortez Preliminary Report By: Marko Helton Electronically signed By Rizwan Cortez Dictated Date: 10/13/2022 5:08:41 PM Prelim Date: 10/13/2022 5:13:09 PM Sign Date: 10/13/2022 5:42:05 PM Ordering Provider: LAMINE PHAM [facility] course Narrative Note Date & Type Note Facility Hospital course Narrative No data available for this section [facility] Summary Purpose Family History No Family History Records Found Advance Directives No Advanced Directives Records Found Additional Source Comments Patient Care team informatio n (unrecognized section and content) Care Team Personnel Name: HUMBLE GARCIA MD Member Role: Primary Care Physician Address: Address: [facility] [address] [place] [address]- [place] Name: Sabina Wright RN Position: AO RN Member Role: ED RN Name: ELSA DARNELL MD Position: ED Physician Address: Address: [address] [place], [place] [address] Name: LAMINE PHAM DO Position: Resident Member Role: Resident Address: Address: [address] [place] [address] ED Resident [address] Name: TIA Gaston Position: AO RN Member Role: ED RN (unrecognized sect ion and content) No Status Records Found INFORMATION SOURCE (unrecogn ized section and content) FOR RECORDS PERTAINING TO PATIENTS WHO ARE OR HAVE BEEN ENROLLED IN A CHEMICAL DEPENDENCY/SUBSTANCEABUSE PROGRAM, SOME INFORMATION MAY BE OMITTED. This clinical summary was aggregated from multiple sources. Caution should be exercised in using it in the provision of clinical care. This summary normalizes information from multiple sources, and as a consequence, information in this document may materially change the coding, format and clinical context of patient data. In addition, data may be omitted in some cases. CLINICAL DECISIONS SHOULD BE BASED ON THE PRIMARY CLINICAL RECORDS. [facility] [facility]. provides no warranty or guarantee of the accuracy or completeness of information in this document.
[2023-03-07 22:03] LABS: AST(SGOT) 21 U/L (15-37); Alanine Aminotransfer ALT/SGPT 24 U/L (16-61); Albumin, Serum 4.7 g/dL (3.2-5.0); Alkaline Phosphatase 123 U/L (45-117); Anion Gap 9 (5-15); BUN 28 mg/dL (7-18); BUN/Creat Ratio 14.4 RATIO (10-20); Calcium,Total 11.1 mg/dL (8.5-10.1); Chloride 99 mmol/L (98-107); Creatinine, Serum 1.94 mg/dL (0.70-1.30); EST Glomerular Filtration Rate 37 mL/min (>60); Est Glom Filt Rate - Afr Amer 44 mL/min (>60); Estimated Creatinine Clearance 48.68 ml/min; Globulin 4.5 g/dL (2.2-4.2); Glucose 98 mg/dL (74-106); Lipase 26 U/L (13-75); Potassium 3.4 mmol/L (3.5-5.1); Protein, Total 9.2 g/dL (6.4-8.2); Sodium Level 139 mmol/L (136-145)
[2023-03-07 22:05] LABS: Differential Comment SCANNED; Differential Indicated SCAN CRITERIA MET
--- NOTE | 2023-03-07 22:17 | CT_ITS ---
INDICATION: abdominal pain EXAMINATION: CT ABDOMEN AND PELVIS WITH CONTRAST - CT Abdomen And Pelvis W/ Contrast Injection TECHNIQUE: Helically acquired images were obtained of the abdomen and pelvis following IV contrast. A radiation dose optimization technique was used for this scan. IV Contrast dosage and agent: 75 mL Isovue-370 Oral contrast: None. COMPARISON: December 02, 2022., July 14, 2020 FINDINGS: LOWER CHEST: Lung bases are clear. No cardiomegaly or pericardial effusion. LIVER: Homogeneous. No focal mass. GALLBLADDER AND BILIARY TREE: Cholecystectomy. No intra- or extrahepatic biliary ductal dilation. PANCREAS: No focal cystic or solid mass. SPLEEN: Calcified sequela of prior granulomatous disease. Normal size without focal cystic or solid mass. ADRENAL GLANDS: No nodules. KIDNEYS AND URETERS: Normal renal size and position. No hydronephrosis. PERITONEUM: No ascites or free air. No other fluid collection. BOWEL: Mild distal esophageal wall thickening. No acute gastric finding. No small bowel distention or focal wall thickening. Normal appendix. Layering colonic fluid cecum to sigmoid colon. LYMPH NODES: No enlarged mesenteric or retroperitoneal lymph nodes. VESSELS: Aortic atherosclerosis without ectasia.. URINARY BLADDER: Unremarkable. REPRODUCTIVE ORGANS: Prostate 5.9 cm transverse ABDOMINAL WALL: No discrete abdominal or pelvic wall hernia. BONES: No lytic or blastic abnormality. Bilateral pars defects L5 with grade [address]/Abdomen/Pelvis W IV Cont ONLY IMPRESSION: Mild diffuse distal small bowel and colonic fluid which is nonspecific but more than typically seen, sometimes associated with mild infectious colitis or enteritis with diarrhea. Mild chronic circumferential distal esophageal wall thickening without surrounding inflammation or significant change from July 14, 2020. Minimal hiatal hernia. Consider follow-up fluoroscopic esophagram or endoscopy to further evaluate esophageal mucosa when clinically able. Large prostate. Splenic sequela of prior granulomatous disease. Electronically Signed: Leonel Roberto MD at 23:58 EST ,
--- NOTE | 2023-03-07 22:19 | EDS_ITS ---
HPI HPI - GI History of Present Illness Chief Complaint: Nausea/Vomiting/Diarrhea Narrative Narrative: 67-year-old male presenting with nausea, vomiting, diarrhea. Patient states he has a history of C. difficile 3 times this last year and has been on oral vancom ycin. Patient states regardless of this he had a bad tooth and had his daughter who is a nurse practitioner call him an antibiotic last week and now he has nausea, vomiting diarrhea and is concerned he has C. difficile again. He states that he does not want to get the tooth fixed because at his age health care is so expensive. He states he would prefer to be on antibiotics and if he gets C. difficile he is okay with being treated for that even if it means he will be hospitalized for it he has been hospitalized a couple of times with C. difficile in the past as well as dehydration. Patient does not have a fever at home but does state he has chills and bodyaches. The onset of his symptoms are 3 hours ago and he states at this point he is unable to get up and walk and EMS had to carry him to the squad. [facility] Medical History Atherosclerosis of [place] coronary artery of [place] heart without angina pectoris Chronic kidney disease Claudication Clostridioides difficile infection Constipation COPD (chronic obstructive pulmonary disease) DVT (deep venous thrombosis) Effusion, right knee Essential (primary) hypertension Gout of right knee History of non-ST elevation myocardial infarction (NSTEMI) (10/11/13) Hyperglycemia due to type 2 diabetes mellitus Hyperlipidemia IBS (irritable bowel syndrome) Ischemic cardiomyopathy NSVT (nonsustained ventricular tachycardia) Obesity Old inferior wall myocardial infarction (02/27/05) Pseudogout of right knee Pulmonary embolism (09/2013) Right knee pain Secondary pulmonary arterial hypertension Type 2 diabetes mellitus Home Medications atorvastatin 80 mg tablet 80 mg PO DAILY cholesterol 10/05/13 [History Last Taken 12/01/22] nitroglycerin 0.4 mg sublingual tablet 0.4 mg sublingual Q5M PRN Angina pain #25 tabs 10/14/13 [Rx Last Taken Unknown] albuterol sulfate 90 mcg/actuation aerosol inhaler 6.7 g IH Q4H PRN PRN COPD 07/22/16 [History Last Taken 12/02/22] hydroxyzine HCl 50 mg tablet 50 mg PO QHS sleep 03/14/17 [History Last Taken 12/01/22] losartan 50 mg tablet 50 mg PO DAILY blood pressure 02/01/18 [History Last Taken 12/01/22] trazodone 50 mg tablet 50 mg PO QHS sleep 02/25/20 [History Last Taken 12/01/22] Levocetirizine Dihydrochloride 5 mg PO QHS sleep 05/31/20 [History Last Taken 12/01/22] carvedilol 6.25 mg tablet 6.25 mg PO BID blood pressure 05/31/20 [History Last Taken 12/01/22] furosemide 40 mg tablet 40 mg PO DAILY diuretic 05/31/20 [History Last Taken 12/01/22] oxycodone-acetaminophen 5 mg-325 mg tablet 1 tablet PO Q4H PRN Pain Score 1-10 05/31/20 [History Last Taken 12/01/22] umeclidinium 62.5 mcg-vilanterol 25 mcg/actuation powdr for inhalation 1 puff PO DAILY COPD 05/31/20 [History Last Taken 12/01/22] insulin glargine 100 unit/mL (3 mL) subcutaneous pen (Lantus Solostar U-100 Insulin) 80 units (0.8 mL) subcut BID Diabetes 30 days #48 mL 01/25/21 [Rx Last Taken 12/01/22] insulin lispro 100 unit/mL subcutaneous pen (Humalog KwikPen (U-100) Insulin) 90 unit subcut TIDCM diabetes 12/31/21 [History Last Taken Unknown] ezetimibe 10 mg tablet 10 mg PO DAILY Cholesterol 01/03/22 [History Last Taken Unknown] ondansetron 4 mg disintegrating tablet 4 mg PO Q6H PRN nausea and vomiting #7 tabs 01/03/22 [Rx Last Taken Unknown] rivaroxaban 20 mg tablet (Xarelto) 20 mg PO DAILY hx- DVT 01/03/22 [History Last Taken Unknown] allopurinol 100 mg tablet 100 mg PO BID GOUT 03/06/22 [History Last Taken Unknown] dulaglutide 0.75 mg/0.5 mL subcutaneous pen injector (Trulicity) 0.75 mg subcut QWEEK 03/07/23 [History Last Taken Unknown] linaclotide 145 mcg capsule (Linzess) 145 mcg PO DAILY 03/07/23 [History Last Taken Unknown] Allergy/AdvReac Type Severity Reaction Status Date / Time No Known Allergies Allergy Verified 03/07/23 20:36 Family History Father CAD (coronary artery disease) Diabetes Brother CAD (coronary artery disease) Diabetes Mother Cancer Leukemia Brother Diabetes Surgical History H/O coronary artery bypass surgery (04/18/99) History of cholecystectomy History of coronary artery stent placement (02/27/05) History of implantable cardiac defibrillator (ICD) (02/07/18) History of left heart catheterization (10/13/13) Hx of cataract extraction Social History household members: none housing: house Smoking Status: Former smoker pack-years: 39 second hand exposure: No alcohol intake: former substance use type: does not use caffeine: Yes (1/day) what type of physical activity do you participate in: none ROS ROS ED Constitutional Constitutional ED: Reports chills; Denies fever(s) or sweats Eyes Eyes: Denies blurry vision or change in vision ENT ENT ED: Denies ear pain or sore throat Cardiovascular Cardiovascular: Denies chest pain, palpitations or racing heartbeat Respiratory/Chest Respiratory/Chest: Denies cough, dyspnea or sputum Gastrointestinal Gastrointestinal: Reports abdominal pain, diarrhea, nausea and vomiting; Denies constipation Genitourinary Genitourinary ED: Denies dysuria, hematuria or urinary frequency Musculoskeletal Musculoskeletal: Denies arthralgias, myalgias or neck pain Integumentary Denies abscess, Abrasions or rash Neurologic Neurologic: Denies headache(s), paresthesias or weakness Psychiatric Psychiatric: Denies anxiety, depression, suicidal ideation or suicidal thoughts Endocrine Endocrinology: Denies polydipsia or polyuria EXAM Physical Exam Const Vital Signs: 03/07/23 20:33 03/07/23 21:10 03/07/23 23:00 Temperature 97.2 F L Temperature Source Oral Pulse Rate 99 Respiratory Rate 13 20 H Blood Pressure 101/58 L 104/49 L 125/63 H Blood Pressure Mean 72 67 83 Pulse Ox 94 Oxygen Delivery Method Room Air Positive well nourished General Appearance ED: NAD; Negative for pallor HEENT Reports moist mucous membranes normocephalic Eyes PERRL and EOMs intact bilaterally General Eye ED: Negative for pale conjunctiva Resp normal respiratory effort Auscultation: Negative for rales, rhonchi or wheezes Cardio regular rate and regular rhythm GI GI Narrative: Generalized mild tenderness Neuro CN's II-XII intact bilaterally, moves all extremities and no sensory deficits noted Sensorium / Orientation: alert Motor Exam: general weakness Psych mental status grossly normal Skin General Skin Exam: Negative for jaundice or pallor MDM MDM MDM Narrative Medical decision making narrative: 67-year-old male presenting with nausea, vomiting, diarrhea. He has history of C. difficile in the past and was on antibiotics a bad tooth which subsequently improved. Patient has no dental pain currently. With his nausea, vomiting, diarrhea he is concerned he has C. difficile again. He states he typically has to be admitted for this. The onset of his symptoms only a few hours ago but he already admits he is too weak to stand or to take care of himself at home. Differential includes COVID, influenza, C. difficile, dehydration, anemia, electrolyte abnormalities, pancreatitis, gastritis. Patient medicated with Zofran and IV fluids. He states he was still nauseous so he was given Reglan. CBC was obtained to assess white blood cell count, hemoglobin, platelets. CMP to assess liver function, renal function, electrolytes. Lipase to assess for pancreatitis. CBC returned with white blood cell 18.2, hemoglobin of 17.6 which is likely due to hemoconcentration. Platelets are 227 nephro normal. Creatinine is elevated today at 1.94 and his last creatinine was 1.37. His true baseline appears to be a little lower than this. He was given an additional liter of normal saline. Lipase returned negative. Will obtain a CT of the abdomen pelvis with IV contrast. I ordered stool studies but the patient states he would not be able to provide a stool sample. I did review the CT of the abdomen pelvis that ultimately think is significant. I spoke with the hospitalist for admission. He recommended giving Flagyl. Was still waiting for the stool studies come back. Patient admitted in stable condition. Impression: 1. Nausea/vomiting 2. Diarrhea 3. History of C. difficile colitis 4. C. difficile colitis Lab Data Attestation: I reviewed the patient's lab results. Labs: Laboratory Results - last 24 hr 03/07/23 21:10 WBC 18.2 H RBC 6.04 Hgb 17.6 H Hct 54.6 H MCV 90.4 MCH 29.1 MCHC 32.2 RDW Std Deviation 47.7 H RDW Coeff of Eula 14.6 Plt Count 227 MPV 11.6 Immature Gran % (Auto) 0.600 Neut % (Auto) 79.6 H Lymph % (Auto) 8.1 L Lipscomb % (Auto) 10.2 H Eos % (Auto) 0.8 Baso % (Auto) 0.7 Absolute Neuts (auto) 14.5 H Absolute Lymphs (auto) 1.47 Nucleated RBC % 0 Differential Comment SCANNED Diff Path Review June Sodium 139 Potassium 3.4 L Chloride 99 Carbon Dioxide 31.0 Anion Gap 9 BUN 28 H Creatinine 1.94 H Estim Creat Clear Calc 48.68 Est GFR (MDRD) Af Amer 44 L Est GFR (MDRD) Non-Af 37 L BUN/Creatinine Ratio 14.4 Glucose 98 Calcium 11.1 H Total Bilirubin 1.00 AST 21 ALT 24 Alkaline Phosphatase 123 H Total Protein 9.2 H Albumin 4.7 Globulin 4.5 H Albumin/Globulin Ratio 1.0 Lipase 26 Discharge Plan Triage Chief Complaint: Nausea/Vomiting/Diarrhea ED Provider: Shayne Zamarripa Dx/Rx/DC Orders Prescriptions: No Action hydroxyzine HCl 50 mg tablet 50 mg PO QHS losartan 50 mg tablet 50 mg PO DAILY Hold Instructions: Restart in 5 days atorvastatin 80 MG tablet 80 mg PO DAILY Patient Comments: LOWERS CHOLESTEROL nitroglycerin 0.4 MG tablet 0.4 mg sublingual Q5M PRN (Reason: Angina pain ) Qty: 25 0RF Patient Comments: chest pain trazodone 50 mg tablet 50 mg PO QHS albuterol sulfate 6.7 GM HFA aerosol inhaler 6.7 g IH Q4H PRN PRN (Reason: COPD) umeclidinium-vilanterol 1 EACH blister with device 1 puff PO DAILY Patient Comments: inhale 1 (ONE) puff BY MOUTH EVERY DAY oxycodone-acetaminophen 1 TABLET tablet 1 tablet PO Q4H PRN (Reason: Pain Score 1-10) Levocetirizine Dihydrochloride 5 mg PO QHS furosemide 40 MG tablet 40 mg PO DAILY Hold Instructions: Restart in 1 week Patient Comments: diuretic carvedilol 6.25 MG tablet 6.25 mg PO BID insulin glargine [Lantus Solostar U-100 Insulin] 100 unit/mL (3 mL) Insulin Pen 80 units subcut BID 30 Days Qty: 48 0RF insulin lispro [Humalog KwikPen Insulin] 100 unit/mL insulin pen 90 unit subcut TIDCM ondansetron 4 mg tablet,disintegrating 4 mg PO Q6H PRN (Reason: nausea and vomiting) Qty: 7 0RF ezetimibe 10 mg tablet 10 mg PO DAILY Xarelto 20 mg tablet 20 mg PO DAILY allopurinol 100 mg tablet 100 mg PO BID Patient Comments: TAKE 1 TABLET BY MOUTH TWICE DAILY Trulicity 0.75 mg/0.5 mL pen injector 0.75 mg subcut QWEEK Linzess 145 mcg capsule 145 mcg PO DAILY Primary Care Provider: Bulmaro Garcia Referrals: Bulmaro Garcia MD [Primary Care Provider] - [employer] [facility] Medical hold order details:: IF a medical hold is selected below, a suggested order for a MEDICAL HOLD will reflex upon signing the document. Next of kin: [place] law dictates a PRIORITY LIST for identifying legal decision-maker/legal next of kin in the following order (LNOK): 1st: The patient?s legal guardian, if any 2nd: The patient's spouse (if status is questionable, consult Risk Management) 3rd: The patient?s adult child(devorah) (majority, if multiple children) 4th: The patient?s parents 5th: The patient?s adult siblings (majority, if multiple children siblings)
[2023-03-07 23:00] VITALS: BP 125/63
--- NOTE | 2023-03-07 23:22 | PCM.HP.STD ---
[facility] - General General Date of Admission: 03/08/23 Date of Service: 03/07/23 Chief Complaint: Nausea, Vomiting, Diarrhea and Generalized Weakness. HPI Narrative PETE ORTIZ, is a 67 M With a past medical history of essential hypertension, hyperlipidemia, Diabetes mellitus type 2; of unknown control,overweight; with a BMI of 29.3 this admission, history of DVT/PE (); on Xarelto, CAD; s/p PR with CABG (1999) and stents (), history of ischemic cardiomyopathy; s/p AICD (2007 then replaced 2017), NSVT, history of tobacco abuse; with subsequent COPD, history of claudication, history of pseudogout of the Right knee with effusion, CKD; stage III, IBS; on Linzess, history of COVID-19, psoriasis, OA, history of recurrent Clostridium difficile colitis; with three different courses of oral vancomycin in the past year and recently diagnosed dental infection with patient reluctant to undergo tooth extraction causing him to take repeated courses of antibiotics who presents to [facility] ER complaining of nausea, vomiting, diarrhea and generalized weakness. Mr. Ortiz reports his symptoms began approximately 3 hours prior to arrival with the abrupt-onset of GI upset that began with nausea then followed by bilious emesis and non-bloody diarrhea. He took antibiotics from a family member since last week and he states this is very similar to his previous episodes of Clostridium difficile colitis with associated dehydration, malaise and body aches that basically make it impossible to care for himself at home and records indicate he made EMS carry him to the squad. This gentleman then informed his ER provider that he did not want to get his tooth fixed because, at his age health care is so expensive leaving the ER physician dumbfounded. He denies related fever, other acute illness or recent injury. In the ER he was diagnosed with a suspected flare of his Clostridium difficile colitis with leukocytosis of 18.2 present on admission complicated by BRENNAN; with serum creatinine of 1.94 mg/dL and BUN of 28 mg/dL present on admission (up from his baseline serum creatinine of 1.37 and BUN of 24 mg/dL during his last admission in early December 2022) with hypokalemia of 3.4 mmol/L and mild hypercalcemia of 11.1 mg/dL present on admission compounded by clinical evidence of generalized weakness with ambulatory dysfunction and he was then admitted to the general medical floor for ongoing care for a stay that is suspected to be greater than 48 hours. FORMERLY [facility], [facility] Medical History (Updated 03/08/23 @ 06:[address] Simón Montoya, ) Acute kidney injury Atherosclerosis of [place] coronary artery of [place] heart without angina pectoris Chronic kidney disease Claudication Clostridioides difficile infection Constipation COPD (chronic obstructive pulmonary disease) DVT (deep venous thrombosis) Effusion, right knee Essential (primary) hypertension Gout of right knee History of non-ST elevation myocardial infarction (NSTEMI) (10/11/13) Hyperglycemia due to type 2 diabetes mellitus Hyperlipidemia IBS (irritable bowel syndrome) Ischemic cardiomyopathy NSVT (nonsustained ventricular tachycardia) Obesity Old inferior wall myocardial infarction (02/27/05) Pseudogout of right knee Pulmonary embolism (09/2013) Right knee pain Secondary pulmonary arterial hypertension Type 2 diabetes mellitus Home Medications atorvastatin 80 mg tablet 80 mg PO DAILY cholesterol 10/05/13 [History Last Taken 12/01/22] nitroglycerin 0.4 mg sublingual tablet 0.4 mg sublingual Q5M PRN Angina pain #25 tabs 10/14/13 [Rx Last Taken Unknown] albuterol sulfate 90 mcg/actuation aerosol inhaler 6.7 g IH Q4H PRN PRN COPD 07/22/16 [History Last Taken 12/02/22] hydroxyzine HCl 50 mg tablet 50 mg PO QHS sleep 03/14/17 [History Last Taken 12/01/22] losartan 50 mg tablet 50 mg PO DAILY blood pressure 02/01/18 [History Last Taken 12/01/22] trazodone 50 mg tablet 50 mg PO QHS sleep 02/25/20 [History Last Taken 12/01/22] Levocetirizine Dihydrochloride 5 mg PO QHS sleep 05/31/20 [History Last Taken 12/01/22] carvedilol 6.25 mg tablet 6.25 mg PO BID blood pressure 05/31/20 [History Last Taken 12/01/22] furosemide 40 mg tablet 40 mg PO DAILY diuretic 05/31/20 [History Last Taken 12/01/22] oxycodone-acetaminophen 5 mg-325 mg tablet 1 tablet PO Q4H PRN Pain Score 1-10 05/31/20 [History Last Taken 12/01/22] umeclidinium 62.5 mcg-vilanterol 25 mcg/actuation powdr for inhalation 1 puff PO DAILY COPD 05/31/20 [History Last Taken 12/01/22] insulin glargine 100 unit/mL (3 mL) subcutaneous pen (Lantus Solostar U-100 Insulin) 80 units (0.8 mL) subcut BID Diabetes 30 days #48 mL 01/25/21 [Rx Last Taken 12/01/22] insulin lispro 100 unit/mL subcutaneous pen (Humalog KwikPen (U-100) Insulin) 90 unit subcut TIDCM diabetes 12/31/21 [History Last Taken Unknown] ezetimibe 10 mg tablet 10 mg PO DAILY Cholesterol 01/03/22 [History Last Taken Unknown] ondansetron 4 mg disintegrating tablet 4 mg PO Q6H PRN nausea and vomiting #7 tabs 01/03/22 [Rx Last Taken Unknown] rivaroxaban 20 mg tablet (Xarelto) 20 mg PO DAILY hx- DVT 01/03/22 [History Last Taken Unknown] allopurinol 100 mg tablet 100 mg PO BID GOUT 03/06/22 [History Last Taken Unknown] dulaglutide 0.75 mg/0.5 mL subcutaneous pen injector (Trulicity) 0.75 mg subcut QWEEK 03/07/23 [History Last Taken Unknown] linaclotide 145 mcg capsule (Linzess) 145 mcg PO DAILY 03/07/23 [History Last Taken Unknown] Allergy/AdvReac Type Severity Reaction Status Date / Time No Known Allergies Allergy Verified 03/07/23 20:36 Family History Father CAD (coronary artery disease) Diabetes Brother CAD (coronary artery disease) Diabetes Mother Cancer Leukemia Brother Diabetes Surgical History H/O coronary artery bypass surgery (04/18/99) History of cholecystectomy History of coronary artery stent placement (02/27/05) History of implantable cardiac defibrillator (ICD) (02/07/18) History of left heart catheterization (10/13/13) Hx of cataract extraction Social History household members: none housing: house Smoking Status: Former smoker pack-years: 39 second hand exposure: No alcohol intake: former substance use type: does not use caffeine: Yes (1/day) what type of physical activity do you participate in: none ROS ROS Narrative Review of systems: Constitutional: Patient admits to chills but denies fevers or sweats. Eyes: Patient denies blurry vision or discharge from eyes. ENT: Patient denies ear pain, sore throat or runny nose. Cardiovascular: Patient denies chest pain or palpitations. Respiratory: Patient denies shortness of breath or cough. Gastrointestinal: Patient admits to diffuse cramping abdominal pain with diarrhea nausea and vomiting. Genitourinary: Patient denies dysuria, hematuria or urinary frequency. Musculoskeletal: Patient denies arthralgias, or myalgias. Integumentary: Patient denies rash or abscess. Neurologic: Patient denies headache, paresthesias or focal neurologic weakness. Psychiatric: Patient denies uncontrolled depression or anxiety. Endocrine: Patient denies polyuria, polydipsia or polyphagia. Allergic: Patient denies lip swelling, tongue swelling or urticaria. 14 point review of systems otherwise negative except for positives noted above in HPI. Vital Signs Vital Signs Vital Signs: 03/07/23 20:33 03/07/23 21:10 03/07/23 23:00 Temperature 97.2 F L Temperature Source Oral Pulse Rate 99 Respiratory Rate 13 20 H Blood Pressure 101/58 L 104/49 L 125/63 H Blood Pressure Mean 72 67 83 Pulse Ox 94 Oxygen Delivery Method Room Air Weight Weight: 240 lb 11.916 oz Body Mass Index (BMI) 29.2 Physical Exam Const alert, oriented x3, no apparent distress and average body habitus General Appearance: cooperative HEENT normocephalic, head/scalp atraumatic, hearing grossly normal bilaterally and moist oral mucous membranes Eyes PERRL and EOMs intact bilaterally Neck no lymphadenopathy and supple Resp normal respiratory effort, no retractions, no use of accessory muscles and clear to auscultation bilaterally Cardio regular rate and regular rhythm GI normal to inspection, nondistended, normoactive bowel sounds, soft to palpation and non-distended GI Narrative: Generalized mild tenderness to palpation. Results Lab / Micro Data 03/07/23 21:10 03/07/23 21:10 Labs: Laboratory Results - last 24 hr 03/07/23 21:10: WBC 18.2 H, RBC 6.04, Hgb 17.6 H, Hct 54.6 H, MCV 90.4, MCH 29.1, MCHC 32.2, RDW Std Deviation 47.7 H, RDW Coeff of [place] 14.6, Plt Count 227, MPV 11.6, Immature Gran % (Auto) 0.600, Neut % (Auto) 79.6 H, Lymph % (Auto) 8.1 L, [place] % (Auto) 10.2 H, Eos % (Auto) 0.8, Baso % (Auto) 0.7, Absolute Neuts (auto) 14.5 H, Absolute Lymphs (auto) 1.47, Nucleated RBC % 0, Differential Comment SCANNED, Diff Path Review June, Sodium 139, Potassium 3.4 L, Chloride 99, Carbon Dioxide 31.0, Anion Gap 9, BUN 28 H, Creatinine 1.94 H, Estim Creat Clear Calc 48.68, Est GFR (MDRD) Af Amer 44 L, Est GFR (MDRD) Non-Af 37 L, BUN/Creatinine Ratio 14.4, Glucose 98, Calcium 11.1 H, Total Bilirubin 1.00, AST 21, ALT 24, Alkaline Phosphatase 123 H, Total Protein 9.2 H, Albumin 4.7, Globulin 4.5 H, Albumin/Globulin Ratio 1.0, Lipase 26 Micro: Microbiology 03/07/23 21:10 Mucosa - Nose SARS-CoV-2, Influenza & RSV (PCR) - Final [facility] [address] [place] [id number] Abdomen/Pelvis W IV Cont ONLY MR#: [id number] Acct: [id number] Name: PETE ORTIZ Rep #: [id number] : 1955 M 67 From: Leonel Roberto MD PCP: Dr. Bulmaro Garcia MD Status: ADM IN Study: Abdomen/Pelvis W IV Cont ONLY Date of Exam: 03/07/23 Exam# [id number] Ordering Dr: Shayne Zamarripa DO INDICATION: abdominal pain EXAMINATION: CT ABDOMEN AND PELVIS WITH CONTRAST - CT Abdomen And Pelvis W/ Contrast Injection TECHNIQUE: Helically acquired images were obtained of the abdomen and pelvis following IV contrast. A radiation dose optimization technique was used for this scan. IV Contrast dosage and agent: 75 mL Isovue-370 Oral contrast: None. COMPARISON: December 02, 2022., July 14, 2020 FINDINGS: LOWER CHEST: Lung bases are clear. No cardiomegaly or pericardial effusion. LIVER: Homogeneous. No focal mass. GALLBLADDER AND BILIARY TREE: Cholecystectomy. No intra- or extrahepatic biliary ductal dilation. PANCREAS: No focal cystic or solid mass. SPLEEN: Calcified sequela of prior granulomatous disease. Normal size without focal cystic or solid mass. ADRENAL GLANDS: No nodules. KIDNEYS AND URETERS: Normal renal size and position. No hydronephrosis. PERITONEUM: No ascites or free air. No other fluid collection. BOWEL: Mild distal esophageal wall thickening. No acute gastric finding. No small bowel distention or focal wall thickening. Normal appendix. Layering colonic fluid cecum to sigmoid colon. LYMPH NODES: No enlarged mesenteric or retroperitoneal lymph nodes. VESSELS: Aortic atherosclerosis without ectasia.. URINARY BLADDER: Unremarkable. REPRODUCTIVE ORGANS: Prostate 5.9 cm transverse ABDOMINAL WALL: No discrete abdominal or pelvic wall hernia. BONES: No lytic or blastic abnormality. Bilateral pars defects L5 with grade [address]/Abdomen/Pelvis W IV Cont ONLY IMPRESSION: Mild diffuse distal small bowel and colonic fluid which is nonspecific but more than typically seen, sometimes associated with mild infectious colitis or enteritis with diarrhea. Mild chronic circumferential distal esophageal wall thickening without surrounding inflammation or significant change from July 14, 2020. Minimal hiatal hernia. Consider follow-up fluoroscopic esophagram or endoscopy to further evaluate esophageal mucosa when clinically able. Large prostate. Splenic sequela of prior granulomatous disease. Electronically Signed: Leonel Roberto MD at 23:58 EST , CC: Dr. Shayne Zamarripa, DO; Dr. Bulmaro Garcia MD ~ Aeronautical Drafter: Signed Assessment & Plan Assessment/Plan (1) Clostridioides difficile infection: (2) BRENNAN (acute kidney injury): (3) Esophageal thickening: (4) Intractable nausea and vomiting: (5) Generalized weakness: PLAN: Plan 1. C. difficile colitis; recurrent with leukocytosis of 18.2 present on admission with CT suggestive of colitis and distal esophageal thickening with EGD recommended - Admit To general medical floor under enteric precautions. Continue IV Flagyl begun in the ER and add oral vancomycin.Follow-up stool studies to confirm suspicion. Give Zofran IV as needed nausea. Give Tylenol as needed for mild to moderate level 1-5 out of 10 pain or fever. Give morphine IV as needed for severe level 6-10 out of 10 pain. Finally, we will consult gastroenterology to see this patient on-rounds in the AM for further recommendations regarding EGD this admission with help appreciated in advance. 2. BRENNAN; in the setting of CKD; stage III with serum creatinine of 1.94 mg/dL and BUN of 28 mg/dL present on admission (up from his baseline serum creatinine of 1.37 and BUN of 24 mg/dL during his last admission in early December 2022) due to dehydration arising from #1 - Vigorously volume resuscitate and recheck BMP in the a.m. to ensure improvement. 3. Intractable nausea, vomiting and diarrhea with hypokalemia of 3.4 mmol/L and mild hypercalcemia of 11.1 mg/dL present on admission complicating #1 & #2 - Continue supportive care and monitor for improvement. Give supplemental potassium and recheck BMP in the a.m. to confirm correction. Check intact-PTH. 4. Generalized weakness with ambulatory dysfunction due to #1 - #3 - PT/OT and case management consult and treat on rounds in the a.m. with help appreciated in advance. 5. Chronic dental infection with the patient having an irrational reluctance to undergo dental procedure due to concerns about cost precipitating repeated bouts of C. difficile colitis - Noted. Patient's daughter is apparently a nurse practitioner and perhaps she can be recruited to help convince him to get the dental care that he needs to prevent further serial readmission and seemingly unnecessary morbidity. 6. Essential hypertension - Hold scheduled antihypertensives until infection is neutralized. Also we will avoid potentially nephrotoxic agents in light of #2. 7. Hyperlipidemia - Resume statin and ezetimibe as previous. 8. Diabetes mellitus type 2; of unknown control - ADA diet. FSBS q. AC/HS plus SSI. Check HgbA1c to objectively assess quality of diabetic control. 9. Overweight; with a BMI of 29.3 this admission - Weight loss will be recommended. Check TSH. 10. History of DVT/PE (); on Xarelto - Continue Xarelto as previous. 11. CAD; s/p PR with CABG (2005) and stents () - Stable. Serialize troponin. 12. History of ischemic cardiomyopathy; s/p AICD (2007 then replaced 2017) - Stable. 13. History of NSVT - Noted. 14. History of tobacco abuse; with subsequent COPD - Stable with no evidence of flare at this time. Continue prn nebulizers. 15. History of claudication - Noted. 16. History of pseudogout of the Right knee with effusion - Noted. 17. IBS; on Linzess - Hold Linzess at this time with active diarrhea present on admission. 18. History of COVID-19 - Noted. 19. Psoriasis - Stable. 20. OA - Give Tylenol prn. 21. DVT prophylaxis - Patient is already on Xarelto for #10 which will be contined. Total time: Approximately 55 minutes. Charges/Coding Visit Charges Inpatient E&M: 54544 Init Hosp L2
[2023-03-07] MEDS: metroNIDAZOLE 500 MG/100 ML BAG 100 MG IV (23:40)
--- OUTSIDE RECORDS SUMMARY | 2023-03-07 23:51 | XMS RPT_ITS | CCD ---
Author Name Unknown Address [address] [place] [address] Organization [facility] Care Team Providers Care District Medical Examiner Name Role Phone TIA Reid, Yaritza Samson Unavailable UnavailEdilma Weldon Unavailable TIA Reid, Yaritza Samson Unavailable Unavailabl e Yensho DOPE WORKER, Kate A Unavailable Unavailab le Yensho DOPE WORKER, Kate A Unavailable Unavailab paola Hernandez RN, Nirali Samson Unavailable Unavailable Yensho DOPE WORKER, Kate A Unavailable Unavailab paola Hernandez RN, Nirali Mali Unavailable Unavailable TIA Hernandez, Nirali Samson Unavailable Unavailable TIA Hernandez, Nirali Samson Unavailable Unavailable TIA Hernandez, Nirali Samson Unavailable Unavailable TIA Hernandez, Nirali M Unavailable Unavailable Linnette Singh Unavailable Unavailable Shannan WEBER, Saumya Ye Unavailable Unavailable Gabby, Catherine Y Unavailable Unavailable JOSETTE OLIVA, HUMBLE Ye Primary Care Physician [phone] HUMBLE GARCIA MD Primary Care Unavailable SANDRA WHARF BUILDER-AIR CARRIER INSPECTOR, TU Samson Admitting Unavaila ble SUPPAN DPM, RUBÉN [employer] Unavailable KARMA HUDSON, DR SERNA Attending Unavailable Allergies Allergy Classification Reported Allergen(s) Allergy Type Date of Onset Reaction(s) Facility (19 sources) NKDA; Translations: [NKDA] drug allergy 3 None known [facility] Work Phone: NEGATED: Highlighted row has been ruled out! (6 sources) Observed no known allergies at [facility] No Known Allergies 7 propensity to adverse reactions [facility] Work Phone: NEGATED: Highlighted row has been ruled out! (2 sources) Observed no known allergies at [facility] No Known Allergies 7 propensity to adverse reactions [facility] Work Phone: Medications Current Medications [...] TABS twice daily as needed OXYCODONE-ACETAMINO PHEN [id number] Atiya Lau Problems Active Problems Problem Classification [...] Coronary arteriosclerosis; Translations: [Atherosclerotic heart disease of [place] coronary artery without angina pectoris] Onset: 06-20-2010 [...] (7 sources) Long-term drug therapy; Translations: [Other mcc (current) drug therapy] Onset: 06-20-2010 06-20-2010 Past [...] 09-26-2016 Episodic Other aftercare (8 sources) Other technician terminal and repeater (current) drug therapy; Translations: [Other [facility] (current) drug therapy] Onset: 06-20-2010 06-20-2010 Episodic [...] 12:18-0400 Body temperature 98.24 [degF] 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 [facility] 10-14-2022 12:18-0400 Diastolic Blood Pressure Non-Invasive 61 1 TU DE LA CRUZMADI WHARF BUILDER-AIR CARRIER INSPECTOR [facility] 10-14-2022 12:18-0400 Heart rate 76 /min 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 [facility] 10-14-2022 12:18-0400 Respiratory rate 18 /min 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 [facility] 10-14-2022 12:18-0400 Systolic Blood Pressure Non-Invasive 136 1 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 [facility] 10-14-2022 08:20-0400 Diastolic Blood Pressure Non-Invasive 68 1 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 [facility] 10-14-2022 08:20-0400 Heart rate 89 /min TU KAPPER WHARF BUILDER-AIR CARRIER INSPECTOR [facility] 10-14-2022 08:20-0400 Systolic Blood Pressure Non-Invasive 136 1 TU KAPPER WHARF BUILDER-AIR CARRIER INSPECTOR [facility] 10-14-2022 06:57-0400 Body temperature 98.6 [degF] TU KAPPER WHARF BUILDER-AIR CARRIER INSPECTOR [facility] 10-14-2022 06:57-0400 Diastolic Blood Pressure Non-Invasive 70 1 TU KAPPER WHARF BUILDER-AIR CARRIER INSPECTOR [facility] 10-14-2022 06:57-0400 Heart rate 79 /min TU KAPPER WHARF BUILDER-AIR CARRIER INSPECTOR [facility] 10-14-2022 06:57-0400 Respiratory rate 18 /min TU KAPPER WHARF BUILDER-AIR CARRIER INSPECTOR [facility] 10-14-2022 06:57-0400 Systolic Blood Pressure Non-Invasive 137 1 TU KAPPER WHARF BUILDER-AIR CARRIER INSPECTOR [facility] 10-14-2022 03:01-0400 Body temperature 98.6 [degF] TU KAPPER WHARF BUILDER-AIR CARRIER INSPECTOR [facility] 10-14-2022 03:01-0400 Heart rate 90 /min TU KAPPER WHARF BUILDER-AIR CARRIER INSPECTOR [facility] 10-14-2022 03:01-0400 Respiratory rate 18 /min TU KAPPER WHARF BUILDER-AIR CARRIER INSPECTOR [facility] 10-13-2022 23:55-0400 Heart rate 96 /min TU KAPPER WHARF BUILDER-AIR CARRIER INSPECTOR [facility] 10-13-2022 23:45-0400 Heart rate 84 /min 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 [facility] 10-13-2022 20:15-0400 Body height 193 cm 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 [facility] 10-13-2022 20:15-0400 Body weight 113.2 kg 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 [facility] 10-13-2022 20:15-0400 Body weight 30.39 kg/m2 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 [facility] 10-13-2022 16:20-0400 Blood Pressure Location 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 [facility] 10-13-2022 16:20-0400 Blood Pressure Method 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 [facility] 09-26-2016 13:03-0400 BMI (Body Mass Index) 32.13 [...] 32.86 kg/m2 Linnette Singh [facility] Work Phone: 08-09-2016 13:28-0400 Body Temperature 98.2 [degF] Linnette Francisco [facility] Work Phone: 08-09-2016 13:28-0400 BP Diastolic 80 mm[Hg] Linnette Francisco [facility] Work Phone: 08-09-2016 13:28-0400 BP Systolic 151 mm[Hg] Linnette Francisco [facility] Work Phone: 08-09-2016 13:28-0400 Height 193.04 cm Linnette Francisco [facility] Work Phone: 08-09-2016 13:28-0400 Pulse (Heart Rate) 88 /min Linnette Singh [facility] Work Phone: 08-09-2016 13:28-0400 Pulse Oximetry 98 % Linnette Francisco [facility] Work Phone: 08-09-2016 13:28-0400 Respiratory Rate 18 /min Linnette Francisco [facility] Work Phone: 08-09-2016 13:28-0400 Weight 122.47 kg Linnette Francisco [facility] Work Phone: 03-28-2016 13:07-0500 BMI (Body Mass Index) 33.52 kg/m2 [facility] Work Phone: 03-28-2016 13:07-0500 BP Diastolic 60 mm[Hg] Nirali Hernandez RN [facility] Work Phone: 03-28-2016 13:07-0500 BP Systolic 100 mm[Hg] Nirali Hernandez RN [facility] Work Phone: 03-28-2016 13:07-0500 BSA [...] (Heart Rate) 93 /min Nirali Hernandez RN [facility] Work Phone: 03-30-2015 13:45-0500 Pulse (Heart Rate) 78 /min Nirali Hernandez RN [facility] Work Phone: 12-11-2013 14:31-0400 BP Diastolic 62 mm[Hg] Nirali Hernandez RN [facility] Work Phone: 12-11-2013 14:31-0400 BP Systolic 110 mm[Hg] Nirali Hernandez RN [facility] Work Phone: Encounters Encounter Date Encounter Type Care Provider Facility Start: 10-13-2022 End: 10-14-2022 Evaluation and management of inpatient HUMBLE GARCIA MD Facility:B Start: 10-13-2022 End: 10-14-2022 Evaluation and management of inpatient TU Samson SANDRA WHARF BUILDER-[facility] Procedures Date Procedure Procedure Detail Performing [...] 3 months Mali Carr Start: 10-26-2015 End: 03-16-2016 Pacer Clinic Berry [...] PA-C Work Phone: Start: 03-30-2015 End: 03-30-2015 SECURITY SYSTEMS INSTALLER Tricia Rodriguez PA-C Work Phone: Start: 03-30-2015 End: 03-16-2016 Follow Up Appt 3 months Mali Carr Start: 03-30-2015 End: 03-30-2015 Follow Up Appt 6 months Tricia pearson PA-C Work Phone: Start: 03-30-2015 End: 03-16-2016 Pacer Clinic Berry Garza MD Start: 03-30-2015 End: 03-31-2015 Prgrmng dev eval implantable in persn 1 ld dfb Berry Garza MD Start: 03-30-2015 End: 03-30-2015 SECURITY SYSTEMS INSTALLER Tricia Rodriguez PA-C Work Phone: Start: 03-30-2015 [...] Appt 6 months Sydney Head Kimberlyn er AIR CARRIER INSPECTOR Work Phone: Start: 01-26-2015 End: 03-24-2015 Pulmonary Function Test - complete Sydney Evans AIR CARRIER INSPECTOR Work Phone: Start: 01-26-2015 End: 07-05-2015 Pulmonary stress test/simple Sydney Head Evans AIR CARRIER INSPECTOR Work Phone: Start: 01-26-2015 End: 07-05-2015 Follow Up Appt 6 months Sydney S Kimberlyn er AIR CARRIER INSPECTOR Work Phone: Start: 01-26-2015 End: 03-24-2015 Pulmonary Function Test - complete Sydney S Evans AIR CARRIER INSPECTOR Work Phone: Start: 01-26-2015 End: 07-05-2015 Pulmonary stress test/simple Sydney S Evans AIR CARRIER INSPECTOR Work Phone: Start: 01-22-2015 End: 03-24-2015 Follow [...] PA-C Work Phone: Start: 03-17-2014 End: 03-17-2014 SECURITY SYSTEMS INSTALLER Tricia Rodriguez PA-C Work Phone: Start: 03-17-2014 [...] PA-C Work Phone: Start: 03-17-2014 End: 03-17-2014 SECURITY SYSTEMS INSTALLER Tricia Rodriguez PA-C Work Phone: Start: 03-17-2014 [...] 02-04-2016 Pulmonary stress test/simple Steve Isac De Loen Work Phone: Start: 12-11-2013 End: 12-11-2013 Device Interrogation Berry Garza MD Start: 12-11-2013 End: 01-05-2014 Echocardiography Berry Garza MD Start: 12-11-2013 End: 02-26-2014 Follow Up Appt 3 months [place] S Kayla, M D Start: 12-11-2013 End: [...] PA-C Work Phone: Start: 01-20-2013 End: 01-20-2013 SECURITY SYSTEMS INSTALLER Tricia Rodriguez PA-C Work Phone: Start: 01-20-2013 [...] PA-C Work Phone: Start: 01-20-2013 End: 01-20-2013 SECURITY SYSTEMS INSTALLER Tricia Rodriguez PA-C Work Phone: Start: 01-20-2013 [...] IMPLANTATION OF DEFIBRILLATOR, HX OF Linnette FLORES [employer] Coronary artery bypa ss graft TU FLORES [employer] Plan of Treatment Date Care Activity Detail Author Start: 03-28-2017 End: 03-28-2017 Appointment Appointment [facility] Work Phone: Start: 03-14-2017 End: 03-14-2017 Appointment Appointment [facility] Work Phone: Start: 02-07-2017 End: 02-07-2017 Appointment Appointment [facility] Work Phone: Start: 11-22-2016 End: 11-22-2016 Follow Up Appt 3 months Follow Up Appt 3 months [facility] Work Phone: Start: 11-22-2016 End: 11-22-2016 Pacer Clinic [facility] Work Phone: Start: 11-22-2016 End: 11-22-2016 Appointment Appointment [facility] Work Phone: Start: 09-26-2016 End: 09-26-2016 Echocardiography Echocardiogram (complete) [facility] Work Phone: Start: 09-26-2016 End: 09-26-2016 Follow Up Appt 6 months Follow Up Appt 6 months [facility] Work Phone: Start: 09-26-2016 End: 09-26-2016 MMM MMM [facility] Work Phone: Start: 09-26-2016 End: 09-26-2016 Nuclear stress test -Lexiscan Nuclear stress test -Lexiscan [facility] Work Phone: Start: 09-26-2016 End: 09-26-2016 Appointment Appointment [facility] Work Phone: Start: 09-26-2016 End: 09-26-2016 Echocardiography Echocardiogram (complete) [facility] Work Phone: Start: 09-26-2016 End: 09-26-2016 Follow Up Appt 6 months Follow Up Appt 6 months [facility] Work Phone: Start: 09-26-2016 End: 09-26-2016 MMM MMM [facility] Work Phone: Start: 09-26-2016 End: 09-26-2016 Nuclear stress test -Lexiscan Nuclear stress test -Lexiscan [facility] Work Phone: Start: 08-09-2016 End: 08-09-2016 [facility] Work Phone: Start: 08-09-2016 End: 08-09-2016 Follow Up Appt 6 months Follow Up Appt 6 months [facility] Work Phone: Start: 08-09-2016 End: 08-09-2016 Pulmonary Function Test - complete Pulmonary Function Test - complete [facility] Work Phone: Start: 08-09-2016 End: 08-09-2016 Appointment Appointment [facility] Work Phone: Start: 08-09-2016 End: 08-09-2016 [facility] Work Phone: Start: 08-09-2016 End: 08-09-2016 Follow Up Appt 6 months Follow Up Appt 6 months [facility] Work Phone: Start: 08-09-2016 End: 08-09-2016 Pulmonary Function Test - complete Pulmonary Function Test - complete [facility] Work Phone: Start: 08-08-2016 End: 08-08-2016 Follow Up Appt 3 months Follow Up Appt 3 months [facility] Work Phone: Start: 08-08-2016 [...] - complete Pulmonary Function Test - complete [facility] Work Phone: Start: 07-03-2016 End: 02-09-2016 Pulmonary stress test/simple Pulmonary stress testing; simple (eg, 6-minute walk) [facility] Work Phone: Start: 07-03-2016 End: 02-09-2016 Pulmonary Function Test - complete Pulmonary Function Test - complete [facility] Work Phone: Start: 07-03-2016 End: 02-09-2016 Pulmonary stress test/simple Pulmonary stress testing; simple (eg, 6-minute walk) [facility] Work Phone: Start: 05-02-2016 End: 05-02-2016 Follow Up Appt 3 months Follow Up Appt 3 months [facility] Work Phone: Start: 05-02-2016 End: 05-02-2016 Pacer Clinic Pacer Clinic [facility] Work Phone: Start: 05-02-2016 End: 05-02-2016 Follow Up Appt 3 months Follow Up Appt 3 months [facility] Work Phone: Start: 05-02-2016 End: 05-02-2016 Pacer Clinic Pacer Clinic [facility] Work Phone: Start: 03-28-2016 End: 03-28-2016 SECURITY SYSTEMS INSTALLER SECURITY SYSTEMS INSTALLER [facility] Work Phone: Start: 03-28-2016 End: 03-28-2016 Follow Up Appt 6 months Follow Up Appt 6 months [facility] Work Phone: Start: 03-28-2016 End: 03-28-2016 SECURITY SYSTEMS INSTALLER SECURITY SYSTEMS INSTALLER [facility] Work Phone: Start: 03-28-2016 End: 03-28-2016 Follow Up Appt 6 months Follow Up Appt 6 months [facility] Work Phone: Start: 02-09-2016 End: 02-09-2016 BWA BWA [facility] Work Phone: Start: 02-09-2016 End: 02-09-2016 Follow Up Appt 6 months Follow Up Appt 6 months [facility] Work Phone: Start: 02-09-2016 [...] 3 months Follow Up Appt 3 months [facility] Work Phone: Start: 01-26-2016 End: 03-16-2016 Pacer Clinic [facility] Work Phone: Start: 10-26-2015 End: 03-16-2016 Follow Up Appt 3 months Follow Up Appt 3 months [facility] Work Phone: Start: 10-26-2015 [...] 6 months Follow Up Appt 6 months [facility] Work Phone: Start: 09-28-2015 End: 09-28-2015 Lipid 1996 panel *Lipid Profile CC [facility] Work Phone: Start: 09-28-2015 End: 09-28-2015 MMM MMM [facility] Work Phone: Start: 09-28-2015 End: [...] Group Work Phone: Start: 08-18-2015 End: 08-18-2015 [facility] Work Phone: Start: 08-18-2015 End: 08-18-2015 Follow Up Appt 6 months Follow Up Appt 6 months [facility] Work Phone: Start: 08-18-2015 End: 08-18-2015 [facility] Work Phone: Start: 08-18-2015 End: 08-18-2015 Follow Up Appt 6 months Follow Up Appt 6 months [facility] Work Phone: Start: 07-26-2015 End: 03-16-2016 Follow Up Appt 3 months Follow Up Appt 3 months [facility] Work Phone: Start: 07-26-2015 End: 03-16-2016 Pacer Clinic Pacer Clinic [facility] Work Phone: Start: 07-26-2015 End: 03-16-2016 Follow Up Appt 3 months Follow Up Appt 3 months [facility] Work Phone: Start: 07-26-2015 End: 03-16-2016 Pacer Clinic [facility] Clinic [facility] Work Phone: Start: 03-30-2015 End: 03-30-[facility] Work Phone: Start: 03-30-2015 End: 03-16-2016 Follow Up Appt 3 months Follow Up Appt 3 months [facility] Work Phone: Start: 03-30-2015 End: 03-30-2015 Follow Up Appt 6 months Follow Up Appt 6 months [facility] Work Phone: Start: 03-30-2015 End: 03-16-2016 [facility]er Clinic [facility] Work Phone: Start: 03-30-2015 End: 03-30-[facility] Work Phone: Start: 03-30-2015 End: 03-16-2016 Follow Up Appt 3 months Follow Up Appt 3 months [facility] Work Phone: Start: 03-30-2015 End: 03-30-2015 Follow Up Appt 6 months Follow Up Appt 6 months [facility] Work Phone: Start: 03-30-2015 End: 03-16-2016 Pacer Clinic [facility] Work Phone: Start: 01-26-2015 End: 07-05-2015 Follow Up Appt 6 months Follow Up Appt 6 months [facility] Work Phone: Start: 01-26-2015 End: 03-24-2015 Pulmonary Function Test - complete Pulmonary Function Test - complete [facility] Work Phone: Start: 01-26-2015 End: 07-05-2015 Pulmonary stress test/simple Pulmonary stress testing; simple (eg, 6-minute walk) [facility] Work Phone: Start: 01-26-2015 End: 07-05-2015 Follow Up Appt 6 months Follow Up Appt 6 months [facility] Work Phone: Start: 01-26-2015 End: 03-24-2015 Pulmonary Function Test - complete Pulmonary Function Test - complete [facility] Work Phone: Start: 01-26-2015 End: 07-05-2015 Pulmonary stress test/simple Pulmonary stress testing; simple (eg, 6-minute walk) [facility] Work Phone: Start: 01-22-2015 End: 03-24-2015 Follow Up Appt 3 months Follow Up Appt 3 months [facility] Work Phone: Start: 01-22-2015 End: 03-24-2015 Pacer Clinic Pacer Clinic [facility] Work Phone: Start: 01-22-2015 End: [...] Phone: Start: 09-24-2014 End: 03-24-2015 MMM MMM [facility] Work Phone: Start: 09-24-2014 End: 03-24-2015 Pacer Clinic [facility] Work Phone: Start: 09-24-2014 End: 03-24-2015 Follow Up Appt 3 months Follow Up Appt 3 months [facility] Work Phone: Start: 09-24-2014 End: 03-24-2015 Follow Up Appt 6 months Follow Up Appt 6 months [facility] Work Phone: Start: 09-24-2014 End: 03-24-2015 MMM MMM [facility] Work Phone: Start: 09-24-2014 End: 03-24-2015 Pacer Clinic [facility] Work Phone: Start: 07-28-2014 End: 07-28-2014 Follow Up Appt 6 months Follow Up Appt 6 months [facility] Work Phone: Start: 07-28-2014 End: 07-28-2014 Follow Up Appt 6 months Follow Up Appt 6 months [facility] Work Phone: Start: 06-19-2014 End: 03-24-2015 Follow Up Appt 3 months Follow Up Appt 3 months [facility] Work Phone: Start: 06-19-2014 End: 03-24-2015 Pacer Clinic [facility] Clinic [facility] Work Phone: Start: 06-19-2014 End: 03-24-2015 Follow Up Appt 3 months Follow Up Appt 3 months [facility] Work Phone: Start: 06-19-2014 End: 03-24-2015 [facility] Work Phone: Start: 03-17-2014 End: 03-16-2016 *CBC with Differential *CBC with Differential [facility] Work Phone: Start: 03-17-2014 End: 03-17-2014 SECURITY SYSTEMS INSTALLER [employer] Work Phone: Start: 03-17-2014 End: 03-24-2015 Follow Up Appt 3 months Follow Up Appt 3 months [employer] Work Phone: Start: 03-17-2014 End: 03-17-2014 Follow Up Appt 6 months Follow Up Appt 6 months [employer] Work Phone: Start: 03-17-2014 End: 03-16-2016 Lower GI hemoglobin IA Ql (St) *STOB - Stool, Occult Blood [employer] Work Phone: Start: 03-17-2014 End: 03-24-2015 Pacer [facility]er [facility] Work Phone: Start: 03-17-2014 End: 03-16-2016 *CBC with Differential *CBC with Differential [facility] Work Phone: Start: 03-17-2014 End: 03-17-2014 SECURITY SYSTEMS INSTALLER [employer] [facility] Work Phone: Start: 03-17-2014 End: 03-24-2015 Follow Up Appt 3 months Follow Up Appt 3 months [employer] Work Phone: Start: 03-17-2014 End: 03-17-2014 Follow Up Appt 6 months Follow Up Appt 6 months [employer] Work Phone: Start: 03-17-2014 End: 03-16-2016 Hemoglobin by Imm presence in stool *STOB - Stool, Occult Blood [facility] Work Phone: Start: 03-17-2014 End: 03-24-2015 Pacer [facility] Work Phone: Start: 01-27-2014 End: 02-26-2014 Follow Up Appt 6 months Follow Up Appt 6 months [facility] Work Phone: Start: 01-27-2014 End: 02-04-2016 Pulmonary Fuction Test - complete Pulmonary Fuction Test - complete [facility] Work Phone: Start: 01-27-2014 End: 02-04-2016 Pulmonary stress test/simple Pulmonary stress testing; simple (eg, 6-minute walk) [facility] Work Phone: Start: 01-27-2014 End: 02-26-2014 Follow Up Appt 6 months Follow Up Appt 6 months [facility] Work Phone: Start: 01-27-2014 End: 02-04-2016 Pulmonary Fuction Test - complete Pulmonary Fuction Test - complete [facility] Work Phone: Start: 01-27-2014 End: 02-04-2016 Pulmonary stress test/simple Pulmonary stress testing; simple (eg, 6-minute walk) [facility] Work Phone: Start: 12-11-2013 End: 12-11-2013 Device Interrogation Device Interrogation [facility] Work Phone: Start: 12-11-2013 End: 12-11-2013 Echocardiography Echocardiogram (complete) [facility] Work Phone: Start: 12-11-2013 End: 02-26-2014 Follow Up Appt 3 months Follow Up Appt 3 months [facility] Work Phone: Start: 12-11-2013 End: 12-11-2013 MMM MMM [facility] Work Phone: Start: 12-11-2013 End: 02-26-2014 Pacer Clinic [facility] Work Phone: Start: 12-11-2013 End: 12-11-2013 Device Interrogation Device Interrogation [facility] Work Phone: Start: 12-11-2013 End: 12-11-2013 Echocardiography Echocardiogram (complete) [facility] Work Phone: Start: 12-11-2013 End: 02-26-2014 Follow Up Appt 3 months Follow Up Appt 3 months [facility] Work Phone: Start: 12-11-2013 End: 12-11-2013 MMM MMM [facility] Work Phone: Start: 12-11-2013 End: 02-26-2014 Pacer Clinic [facility] Work Phone: Start: 11-04-2013 End: 12-11-2013 Follow Up Appt 3 months Follow Up Appt 3 months [facility] Work Phone: Start: 11-04-2013 End: 12-11-2013 [facility] Work Phone: Start: 11-04-2013 End: 12-11-2013 Follow Up Appt 3 months Follow Up Appt 3 months [facility] Work Phone: Start: 11-04-2013 End: 12-11-2013 [facility] Clinic [facility] Work Phone: Start: 10-28-2013 End: 01-05-2014 Echo tthrc r-t 2d w/wom-mode compl spec&colr d Echo Complete with Color Flow [facility] Work Phone: Start: 10-28-2013 End: 02-04-2016 Pulmonary Fuction Test - complete Pulmonary Fuction Test - complete [facility] Work Phone: Start: 10-28-2013 End: 02-04-2016 Pulmonary Fuction Test - complete Pulmonary Fuction Test - complete [facility] Work Phone: Start: 10-28-2013 End: 01-05-2014 Tte w/doppler, complete Echo Complete with Color Flow [facility] Work Phone: Start: 08-05-2013 End: 08-05-2013 Follow Up Appt 3 months Follow Up Appt 3 months [facility] Work Phone: Start: 08-05-2013 End: 08-05-2013 Follow Up Appt 6 months Follow Up Appt 6 months [facility] Work Phone: Start: 08-05-2013 End: 08-05-2013 MMM MMM [facility] Work Phone: Start: 08-05-2013 End: [...] 08-05-2013 End: 08-05-2013 Pacer Clinic Pacer Clinic [facility] Work Phone: Start: 05-06-2013 End: 12-11-2013 Follow Up Appt 3 months Follow Up Appt 3 months [facility] Work Phone: Start: 05-06-2013 End: 12-11-2013 Pacer Clinic Pacer Clinic [facility] Work Phone: Start: 05-06-2013 End: 12-11-2013 Follow Up Appt 3 months Follow Up Appt 3 months [facility] Work Phone: Start: 05-06-2013 End: 12-11-2013 Pacer Clinic [facility] Work Phone: Start: 01-20-2013 End: 12-11-2013 *BMP *BMP [facility] Work Phone: Start: 01-20-2013 End: 12-11-2013 *CBC with Differential *CBC with Differential [facility] Work Phone: Start: 01-20-2013 End: 11-26-2013 *Hepatic Function Panel *Hepatic Function Panel [facility] Work Phone: Start: 01-20-2013 End: 01-20-2013 SECURITY SYSTEMS INSTALLER SECURITY SYSTEMS INSTALLER [facility] Work Phone: Start: 01-20-2013 End: 01-20-2013 Follow Up Appt 3 months Follow Up Appt 3 months [facility] Work Phone: Start: 01-20-2013 End: 01-20-2013 Follow Up Appt 6 months Follow Up Appt 6 months [facility] Work Phone: Start: 01-20-2013 End: 01-20-2013 Follow Up Appt Other Follow Up Appt Other [facility] Work Phone: Start: 01-20-2013 End: 11-26-2013 Lipid 1996 panel *Lipid Profile CC [facility] Work Phone: Start: 01-20-2013 End: 01-20-2013 Pacer Clinic [facility] Work Phone: Start: 01-20-2013 End: 12-11-2013 *BMP *BMP [facility] Work Phone: Start: 01-20-2013 End: 12-11-2013 *CBC with Differential *CBC with Differential [facility] Work Phone: Start: 01-20-2013 End: 11-26-2013 *Hepatic Function Panel *Hepatic Function Panel [facility] Work Phone: Start: 01-20-2013 End: 01-20-2013 SECURITY SYSTEMS INSTALLER SECURITY SYSTEMS INSTALLER [facility] Work Phone: Start: 01-20-2013 End: 01-20-2013 Follow Up Appt 3 months Follow Up Appt 3 months [facility] Work Phone: Start: 01-20-2013 End: 01-20-2013 Follow Up Appt 6 months Follow Up Appt 6 months [facility] Work Phone: Start: 01-20-2013 End: 01-20-2013 Follow Up Appt Other Follow Up Appt Other [facility] Work Phone: Start: 01-20-2013 End: 11-26-2013 Lipid panel [AGGREGATE] *Lipid Profile CC PCP [facility] Work Phone: Start: 01-20-2013 End: 01-20-2013 Pacer Clinic Pac[facility] Clinic [facility] Work Phone: Start: 10-15-2012 End: 01-09-2013 Follow Up Appt 3 months Follow Up Appt 3 months [facility] Work Phone: Start: 10-15-2012 End: 01-09-2013 Pacer Clinic [facility] Clinic [facility] Work Phone: Start: 10-15-2012 End: 01-09-2013 Follow Up Appt 3 months Follow Up Appt 3 months [facility] Work Phone: Start: 10-15-2012 End: 01-09-2013 Pacer Clinic Pacer Clinic [facility] Work Phone: Start: 08-13-2012 End: 01-09-2013 Follow Up Appt 3 months Follow Up Appt 3 months [facility] Work Phone: Start: 08-13-2012 End: 01-09-2013 Pacer Clinic Pac[facility] Clinic [facility] Work Phone: Start: 08-13-2012 End: [...] 6 months Follow Up Appt 6 months [facility] Work Phone: Start: 07-04-2012 End: 07-04-2012 Lipid 1996 panel *Lipid Profile [facility] Work Phone: Start: 07-04-2012 End: 07-04-2012 MMM MMM [facility] Work Phone: Start: 07-04-2012 End: 07-04-2012 Follow Up Appt 6 months Follow Up Appt 6 months [facility] Work Phone: Start: 07-04-2012 End: 07-04-2012 MMM MMM [facility] Work Phone: Start: 07-03-2012 End: 12-11-2013 *Hepatic Function Panel *Hepatic Function Panel [facility] Work Phone: Start: 07-03-2012 End: 12-11-2013 Lipid panel [AGGREGATE] *Lipid Profile [facility] Work Phone: Start: 07-03-2012 End: 12-11-2013 *Hepatic Function Panel *Hepatic Function Panel [facility] Work Phone: Start: 07-03-2012 End: 12-11-2013 Lipid panel [AGGREGATE] *Lipid Profile [facility] Work Phone: Start: 05-09-2012 End: 07-04-2012 Follow Up Appt 3 months Follow Up Appt 3 months [facility] Work Phone: Start: 05-09-2012 End: 07-04-2012 Pacer Clinic Pacer Clinic [facility] Work Phone: Start: 05-09-2012 End: [...] 07-04-2012 *Hepatic Function Panel *Hepatic Function Panel [facility] Work Phone: Start: 09-11-2011 End: 07-04-2012 Lipid 1996 panel *Lipid Profile [facility] Work Phone: Start: 09-11-2011 End: 07-04-2012 *Hepatic Function Panel *Hepatic Function Panel [facility] Work Phone: Start: 09-11-2011 End: 07-04-2012 Lipid panel [AGGREGATE] *Lipid Profile [facility] Work Phone: Start: 04-11-2011 End: 06-06-2011 *BMP *BMP [facility] Work Phone: Start: 04-11-2011 End: [...] Phone: Start: 04-11-2011 End: 06-06-2011 *BMP *BMP [facility] Work Phone: Start: 04-11-2011 End: 06-06-2011 *Hepatic Function Panel *Hepatic Function Panel [facility] Work Phone: Start: 04-11-2011 End: 06-06-2011 Lipid panel [AGGREGATE] *Lipid Profile [facility] Work Phone: Start: 04-11-2011 End: 06-06-2011 Magnesium *Magnesium [facility] Work Phone: Start: 04-11-2011 End: 06-06-2011 Thyroid stimulating hormone (TSH) *TSH [facility] Work Phone: Start: 04-11-2011 End: 06-06-2011 Thyroxine (T4) *T4 (Total) [facility] Work Phone: Start: 04-04-2011 End: 04-04-2011 Echocardiography Echocardiogram (complete) [facility] Work Phone: Start: 04-04-2011 End: [...] 6 weeks Follow Up Appt 6 weeks [facility] Work Phone: Start: 04-04-2011 End: 04-04-2011 Nuclear stress test -adenosine Nuclear stress test -adenosine [facility] Work Phone: Immunizations Immunization Date Immunization Notes Care Provider Timur lind 10-13-2022 tetanus toxoid, redu jose diphtheria toxoid, and acellular pertussis vaccine, adsorbed 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 [facility] Payers Date Payer Category Payer Medicare [id number] 2022 Private Health Insurance [id number] 1955 Unknown [id number] Social History Date Type Detail Facility Start: 10-13-2022 Tobacco smoking status Ex-smoker (fi nding) [facility] Sex Assigned At Male [facility] Medical Equipment Procedure Code Equipment Code Equipment Origin al Text Equipment Identifier Dates Unknown Unknown 02/19/10 Unknown Unknown FDA Start: 02-19-2010 Functional Status Date Assessment Result Facility 10-14-2022 Functional Status Room check performed [facility] 10-14-2022 Functional Status [facility] 10-13-2022 Functional Status Sensory Deficits None A [facility] Mental Status Date Assessment Result Facility 10-14-2022 [facility] 10-13-2022 Mental Status [facility] 10-13-2022 Mental Status [facility] Clinical Note 10-18-2022 Note Date & [...] Locations *1: This test was performed at: [facility], [address] [place] [address], [facility] , On license of [facility] ([place]) Clinical Note 10-18-2022 Note Date & Type [...] Locations *1: This test was performed at: [address], [address] [place] [address] ([place]) Clinical Note 10-16-2022 Note Date & Type [...] Locations *1: This test was performed at: [address], [address] [place] [address] ([place]) Evaluation + Plan note 10-14-2022 Note [...] collaborating with physician, and documenting in chart. [facility] Clinical Note 10-14-2022 Note Date & Type [...] hyperlipidemia, heart failure and DVT, presents to [facility] emergency department with the chief complaint [...] by TU FLORES on 10/14/2022 02:11 PM [facility] Discharge instructions 10-14-2022 Note Date & Type [...] cause your skin to: Become thinner and drier and pulverizer tender. 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 Heal more slowly. Peel [...] 02/02/2001 Document Revised: 03/20/2018 Document Reviewed: 03/09/2017 [employer] Patient Education 2020 [employer]ineering. Follow Up Care 10/13/2022 16:14:15 With:RUBÉN KENNEY DPM, Surgery Address: [address] [facility], [address] [facility] [place] [address]- When:5 to 7 days Comments:call office to schedule an appointment next week with Dr. Kenney. He will arrange for you to see jahaira Real. With:HUMBLE GARCIA MD Address: [facility] [address] [place] [address]- When:5 to 7 days Comments:post-hospitalization follow-up [facility] Clinical Note 10-14-2022 Note Date & Type Note Facility 10-14-2022 Note Discharge Instructions Thank you for allowing [facility] to assist you with your healthcare needs. The following is important discharge information regarding your hospital visit. Your Care Team [facility] Your Diagnosis Toe pain-swelling What [...] to see Dr. Peacock vascular. Where: [address] [facility], [address] [facility] [place] [address]- Follow Up with HUMBLE GARCIA MD When Within 5 to 7 days Why: post-hospitalization follow-up Where: [facility] [address] [place] [address]- The Following Activity and Diet Have Been [...] 12 hours Duration: 14 Days Pickup at [facility] n/a New clindamycin (clindamycin 300 mg oral capsule) 1 cap by mouth Every 6 hours Duration: 14 Days Pickup at [facility] n/a New lactobacillus acidophilus (lactobacillus acidophilus oral tablet) 1 tab(s) by mouth Two (2) times a day Pickup at [facility] n/a Unchanged albuterol (Albuterol (Eqv-ProAir HFA) [...] for sleep 10 PM 10/13 Pharmacy Information [facility]: [address] [place], [place] [phone] Please take this list to your next [...] cause your skin to: Become thinner and drier and pulverizer tender. 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 Heal more slowly. Peel [...] 02/02/2001 Document Revised: 03/20/2018 Document Reviewed: 03/09/2017 [employer] Patient Education 2020 medineering. Additional Information VACCINATE! IT SAVES LIVES! Members of the community who have not yet received the COVID-19 vaccine and would like to receive it can visit one of [facility] vaccine clinics. There are many vaccine clinic locations within the [facility]. For locations and available times, please visit [email or web address] It is important to note that some COVID mobile vaccine clinics are held outdoors and may be canceled in rainy or stormy conditions. To learn more about pediatric vaccinations (ages 5-11), we invite you to visit the [facility] webpage. [email or web address] -[email or web address].html To learn more about the COVID-19 vaccine, we invite you to visit the CDC website for a list of frequently asked questions.https://www.cdc.gov/coronavi manuela/2019-ncov/vaccines/faq.html [facility] Patient Portal Access Instructions: Stay connected with your healthcare team and access your personal medical information anytime with the [facility] Patient Portal. Please follow the directions below to create your [facility] account: 1.Access the email account you provided upon registration to the hospital/physician office.2.Look for an invitation email from [facility].3.Open the email and access the invitation link: Accept Invitation to [facility].4.Fill in the required nunes to create your account. To access your account, visit [email or web address]. Click the blue button labeled Access Patient [...] you will allow to register on the [facility] [employer] Patient Portal for access to your information. You can also access the [facility] [employer]Chart Patient Portal on the [facility] rhett. Simply click on Patient Portal and then log into your account. If you would like to receive a full copy of your medical records, please contact the [facility] Medical Records Department by calling [phone], Sunday through Sunday between 8 a.m. and [...] Call your local pharmacy or go to [email or web address] to find one close to you.3.Make use of household items: Use cat litter or old coffee grounds to dispose medications if other options are not available. Mix your drugs with these household products, seal them in an airtight container and throw it into the garbage. Call [facility]: [phone] to be sure your drugs can be [...] aware that I should contact my doctor. Patient/Desk Representative Signature: _ Date/Time: Relationship to Patient: Witness Name/Signature: Date/Time: [facility] Clinical Note 10-13-2022 Note Date & Type [...] 10/13/2022 5:42:05 PM Ordering Provider: LAMINE PHAM [facility] course Narrative Note Date & Type Note Facility Hospital course Narrative No data available for this section [facility] Summary Purpose Family History No Family History Records Found Advance Directives No Advanced Directives Records Found Additional Source Comments Patient Care team informatio n (unrecognized section and content) Care Team Personnel Name: HUMBLE GARCIA MD Member Role: Primary Care Physician Address: Address: [facility] [address] [place] [address]- [place] Name: Sabina Wright RN Position: AO RN Member Role: ED RN Name: ELSA DARNELL MD Position: ED Physician Address: Address: [address] [place], [place] [address] Name: LAMINE PHAM DO Position: Resident Member Role: Resident Address: Address: [address] [place] [address] ED Resident [address] Name: TIA Gaston Position: AO RN [...] BE BASED ON THE PRIMARY CLINICAL RECORDS. [facility] [place] [facility]. provides no warranty or guarantee of the accuracy or completeness of information in this document.
[2023-03-08] VITALS (7 sets, daily range): BP systolic 110–133; BP diastolic 53–71; PULSE 77–107; RESP 14–20; TEMP 36.2–37.5; O2SAT 92–98; BMI 29.2; BMI 27.8
[2023-03-08] MEDS: 0.9% Normal Saline (1000mL) 1,000 ML 999 ML IV (00:56)
[2023-03-08] MEDS: KCL 20MEQ in 0.9% NS 20 MEQ/1,000 ML IV.SOLN. 125 MEQ IV ×2 (02:05→09:14)
[2023-03-08] MEDS: Potassium Chloride Oral Tablet 20 MEQ 60 MEQ PO (02:05)
--- OUTSIDE RECORDS SUMMARY | 2023-03-08 02:29 | XMS RPT_ITS | CCD ---
Author Name Unknown Address [address] [place] [address] Organization [facility] Care Team Providers Care Risk Prevention Engineer Name Role Phone TIA Reid, Yaritza Samson Unavailable UnavailEdilma Weldon Unavailable TIA Reid, Yaritza Samson Unavailable Unavailabl e Yensho STONER OUT, Kate A Unavailable Unavailab le Yensho STONER OUT, Kate A Unavailable Unavailab paola Hernandez RN, Nirali Samson Unavailable Unavailable Yensho STONER OUT, Kate A Unavailable Unavailab paola Hernandez RN, Nirali Mali Unavailable Unavailable TIA Hernandez, Nirali Samson Unavailable Unavailable TIA Hernandez, Nirali Samson Unavailable Unavailable TIA Hernandez, Nirali Samson Unavailable Unavailable TIA Hernandez, Nirali M Unavailable Unavailable Linnette Singh Unavailable Unavailable Shannan WEBER, Saumya Ye Unavailable Unavailable Gabby, Catherine Y Unavailable Unavailable JOSETTE OLIVA, HUMBLE Ye Primary Care Physician HUMBLE GARCIA MD Primary Care Unavailable SANDRA [employer]ER GOODS ASSEMBLER-COMPACTING MACHINE OPERATOR/TENDER, TU Samson Admitting Unavaila ble SUPPAN DPM, RUBÉN [employer] Unavailable KARMA HUDSON, DR SERNA Attending Unavailable Allergies Allergy Classification Reported Allergen(s) Allergy Type Date of Onset Reaction(s) Facility (19 sources) NKDA; Translations: [NKDA] drug allergy 3 None known [facility] Work Phone: NEGATED: Highlighted row has been ruled out! (6 sources) Observed no known allergies at [facility] No Known Allergies 7 propensity to adverse reactions [facility] Work Phone: NEGATED: Highlighted row has been ruled out! (2 sources) Observed no known allergies at [facility] No Known Allergies 7 propensity to adverse reactions [facility] Work Phone: Medications Current Medications [...] TABS twice daily as needed OXYCODONE-ACETAMINO PHEN [phone] Atiya Lau Problems Active Problems Problem Classification [...] Coronary arteriosclerosis; Translations: [Atherosclerotic heart disease of [place] coronary artery without angina pectoris] Onset: 06-20-2010 [...] (7 sources) Long-term drug therapy; Translations: [Other skilled nursing (current) drug therapy] Onset: 06-20-2010 06-20-2010 Past [...] Episodic Other aftercare (8 sources) Other terminal worker (current) drug therapy; Translations: [Other skilled nursing (current) drug therapy] Onset: 06-20-2010 06-20-2010 Episodic [...] 12:18-0400 Body temperature 98.24 [degF] 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 [facility] 10-14-2022 12:18-0400 Diastolic Blood Pressure Non-Invasive 61 1 TU DE LA CRUZMADI RUBBER GOODS ASSEMBLER-COMPACTING MACHINE OPERATOR/TENDER [facility] 10-14-2022 12:18-0400 Heart rate 76 /min 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 [facility] 10-14-2022 12:18-0400 Respiratory rate 18 /min 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 [facility] 10-14-2022 12:18-0400 Systolic Blood Pressure Non-Invasive 136 1 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 [facility] 10-14-2022 08:20-0400 Diastolic Blood Pressure Non-Invasive 68 1 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 [facility] 10-14-2022 08:20-0400 Heart rate 89 /min TU KAPPER RUBBER GOODS ASSEMBLER-COMPACTING MACHINE OPERATOR/TENDER [facility] 10-14-2022 08:20-0400 Systolic Blood Pressure Non-Invasive 136 1 TU KAPPER [employer] GOODS ASSEMBLER-COMPACTING MACHINE OPERATOR/TENDER [facility] 10-14-2022 06:57-0400 Body temperature 98.6 [degF] TU KAPPER [employer]ER GOODS ASSEMBLER-COMPACTING MACHINE OPERATOR/TENDER [facility] 10-14-2022 06:57-0400 Diastolic Blood Pressure Non-Invasive 70 1 TU KAPPER [employer]ER GOODS ASSEMBLER-COMPACTING MACHINE OPERATOR/TENDER [facility] 10-14-2022 06:57-0400 Heart rate 79 /min TU KAPPER [employer] ASSEMBLER-COMPACTING MACHINE OPERATOR/TENDER [facility] 10-14-2022 06:57-0400 Respiratory rate 18 /min TU KAPPER [employer] GOODS ASSEMBLER-COMPACTING MACHINE OPERATOR/TENDER [facility] 10-14-2022 06:57-0400 Systolic Blood Pressure Non-Invasive 137 1 TU KAPPER [employer]ER GOODS ASSEMBLER-COMPACTING MACHINE OPERATOR/TENDER [facility] 10-14-2022 03:01-0400 Body temperature 98.6 [degF] TU KAPPER [employer] GOODS ASSEMBLER-COMPACTING MACHINE OPERATOR/TENDER [facility] 10-14-2022 03:01-0400 Heart rate 90 /min TU KAPPER [employer]ER GOODS ASSEMBLER-COMPACTING MACHINE OPERATOR/TENDER [facility] 10-14-2022 03:01-0400 Respiratory rate 18 /min TU KAPPER [employer] GOODS ASSEMBLER-COMPACTING MACHINE OPERATOR/TENDER [facility] 10-13-2022 23:55-0400 Heart rate 96 /min TU KAPPER [employer]ER GOODS ASSEMBLER-COMPACTING MACHINE OPERATOR/TENDER [facility] 10-13-2022 23:45-0400 Heart rate 84 /min 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 [facility] 10-13-2022 20:15-0400 Body height 193 cm 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 [facility] 10-13-2022 20:15-0400 Body weight 113.2 kg 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 [facility] 10-13-2022 20:15-0400 Body weight 30.39 kg/m2 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 [facility] 10-13-2022 16:20-0400 Blood Pressure Location 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 [facility] 10-13-2022 16:20-0400 Blood Pressure Method 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 [facility] 09-26-2016 13:03-0400 BMI (Body Mass Index) 32.13 [...] 32.86 kg/m2 Linnette Singh [facility] Work Phone: 08-09-2016 13:28-0400 Body Temperature 98.2 [degF] Linnette Francisco [facility] Work Phone: 08-09-2016 13:28-0400 BP Diastolic 80 mm[Hg] Linnette Francisco [facility] Work Phone: 08-09-2016 13:28-0400 BP Systolic 151 mm[Hg] Linnette Francisco [facility] Work Phone: 08-09-2016 13:28-0400 Height 193.04 cm Linnette Francisco [facility] Work Phone: 08-09-2016 13:28-0400 Pulse (Heart Rate) 88 /min Linnette Singh [facility] Work Phone: 08-09-2016 13:28-0400 Pulse Oximetry 98 % Linnette Francisco [facility] Work Phone: 08-09-2016 13:28-0400 Respiratory Rate 18 /min Linnette Francisco [facility] Work Phone: 08-09-2016 13:28-0400 Weight 122.47 kg Linnette Francisco [facility] Work Phone: 03-28-2016 13:07-0500 BMI (Body Mass Index) 33.52 kg/m2 [facility] Work Phone: 03-28-2016 13:07-0500 BP Diastolic 60 mm[Hg] Nirali Hernandez RN [facility] Work Phone: 03-28-2016 13:07-0500 BP Systolic 100 mm[Hg] Nirali Hernandez RN [facility] Work Phone: 03-28-2016 13:07-0500 BSA [...] (Heart Rate) 93 /min Nirali Hernandez RN [facility] Work Phone: 03-30-2015 13:45-0500 Pulse (Heart Rate) 78 /min Nirali Hernandez RN [facility] Work Phone: 12-11-2013 14:31-0400 BP Diastolic 62 mm[Hg] Nirali Hernandez RN [facility] Work Phone: 12-11-2013 14:31-0400 BP Systolic 110 mm[Hg] Nirali Hernandez RN [facility] Work Phone: Encounters Encounter Date Encounter Type Care Provider Facility Start: 10-13-2022 End: 10-14-2022 Evaluation and management of inpatient HUMBLE GARCIA MD Facility:B Start: 10-13-2022 End: 10-14-2022 Evaluation and management of inpatient TU Samson SANDRA RUBBER GOODS ASSEMBLER-[facility] Procedures Date Procedure Procedure Detail Performing [...] PA-C Work Phone: Start: 03-30-2015 End: 03-30-2015 REVENUE STAMP CUTTER Tricia Rodriguez PA-C Work Phone: Start: 03-30-2015 End: 03-16-2016 Follow Up Appt 3 months Mali Carr Start: 03-30-2015 End: 03-30-2015 Follow Up Appt 6 months Tricia pearson PA-C Work Phone: Start: 03-30-2015 End: 03-16-2016 Pacer Clinic Berry Garza MD Start: 03-30-2015 End: 03-31-2015 Prgrmng dev eval implantable in persn 1 ld dfb Berry Garza MD Start: 03-30-2015 End: 03-30-2015 REVENUE STAMP CUTTER Tricia Rodriguez PA-C Work Phone: Start: 03-30-2015 [...] Appt 6 months Sydney Head Kimberlyn er COMPACTING MACHINE OPERATOR/TENDER Work Phone: Start: 01-26-2015 End: 03-24-2015 Pulmonary Function Test - complete Sydney Evans COMPACTING MACHINE OPERATOR/TENDER Work Phone: Start: 01-26-2015 End: 07-05-2015 Pulmonary stress test/simple Sydney Head Evans COMPACTING MACHINE OPERATOR/TENDER Work Phone: Start: 01-26-2015 End: 07-05-2015 Follow Up Appt 6 months Sydney S Kimberlyn er COMPACTING MACHINE OPERATOR/TENDER Work Phone: Start: 01-26-2015 End: 03-24-2015 Pulmonary Function Test - complete Sydney S Evans COMPACTING MACHINE OPERATOR/TENDER Work Phone: Start: 01-26-2015 End: 07-05-2015 Pulmonary stress test/simple Sydney S Evans COMPACTING MACHINE OPERATOR/TENDER Work Phone: Start: 01-22-2015 End: 03-24-2015 Follow [...] PA-C Work Phone: Start: 03-17-2014 End: 03-17-2014 REVENUE STAMP CUTTER Tricia Rodriguez PA-C Work Phone: Start: 03-17-2014 [...] PA-C Work Phone: Start: 03-17-2014 End: 03-17-2014 REVENUE STAMP CUTTER Tricia Rodriguez PA-C Work Phone: Start: 03-17-2014 [...] End: 02-26-2014 Follow Up Appt 3 months Agenda S Kayla, M D Start: 12-11-2013 End: [...] PA-C Work Phone: Start: 01-20-2013 End: 01-20-2013 REVENUE STAMP CUTTER Tricia Rodriguez PA-C Work Phone: Start: 01-20-2013 [...] PA-C Work Phone: Start: 01-20-2013 End: 01-20-2013 REVENUE STAMP CUTTER Tricia Rodriguez PA-C Work Phone: Start: 01-20-2013 [...] eval implantable in persn 1 ld dfb Togn Sutherland MD Start: 05-09-2012 End: 07-04-2012 Follow [...] 04-11-2011 End: 06-06-2011 Thyroid stimulating hormone (TSH) oTng Sutherland MD Start: 04-11-2011 End: 06-06-2011 Thyroxine [...] IMPLANTATION OF DEFIBRILLATOR, HX OF Linnette FLORES [facility] Coronary artery bypa ss graft TU FLORES [employer] [employer] [facility] Plan of Treatment Date Care Activity Detail Author Start: 03-28-2017 End: 03-28-2017 Appointment Appointment [facility] Work Phone: Start: 03-14-2017 End: 03-14-2017 Appointment Appointment [facility] Work Phone: Start: 02-07-2017 End: 02-07-2017 Appointment Appointment [facility] Work Phone: Start: 11-22-2016 End: 11-22-2016 Follow Up Appt 3 months Follow Up Appt 3 months [facility] Work Phone: Start: 11-22-2016 End: 11-22-2016 [facility] Clinic [facility] Work Phone: Start: 11-22-2016 End: 11-22-2016 Appointment Appointment [facility] Work Phone: Start: 09-26-2016 End: 09-26-2016 Echocardiography Echocardiogram (complete) [facility] Work Phone: Start: 09-26-2016 End: 09-26-2016 Follow Up Appt 6 months Follow Up Appt 6 months [facility] Work Phone: Start: 09-26-2016 End: 09-26-2016 MMM MMM [facility] Work Phone: Start: 09-26-2016 End: 09-26-2016 Nuclear stress test -Lexiscan Nuclear stress test -Lexiscan [facility] Work Phone: Start: 09-26-2016 End: 09-26-2016 Appointment Appointment [facility] Work Phone: Start: 09-26-2016 End: 09-26-2016 Echocardiography Echocardiogram (complete) [facility] Work Phone: Start: 09-26-2016 End: 09-26-2016 Follow Up Appt 6 months Follow Up Appt 6 months [facility] Work Phone: Start: 09-26-2016 End: 09-26-2016 MMM MMM [facility] Work Phone: Start: 09-26-2016 End: 09-26-2016 Nuclear stress test -Lexiscan Nuclear stress test -Lexiscan [facility] Work Phone: Start: 08-09-2016 End: 08-09-2016 [facility] Work Phone: Start: 08-09-2016 End: 08-09-2016 Follow Up Appt 6 months Follow Up Appt 6 months [facility] Work Phone: Start: 08-09-2016 End: 08-09-2016 Pulmonary Function Test - complete Pulmonary Function Test - complete [facility] Work Phone: Start: 08-09-2016 End: 08-09-2016 Appointment Appointment [facility] Work Phone: Start: 08-09-2016 End: 08-09-2016 [facility] Work Phone: Start: 08-09-2016 End: 08-09-2016 Follow Up Appt 6 months Follow Up Appt 6 months [facility] Work Phone: Start: 08-09-2016 End: 08-09-2016 Pulmonary Function Test - complete Pulmonary Function Test - complete [facility] Work Phone: Start: 08-08-2016 End: 08-08-2016 Follow Up Appt 3 months Follow Up Appt 3 months [facility] Work Phone: Start: 08-08-2016 [...] - complete Pulmonary Function Test - complete [facility] Work Phone: Start: 07-03-2016 End: 02-09-2016 Pulmonary stress test/simple Pulmonary stress testing; simple (eg, 6-minute walk) [facility] Work Phone: Start: 07-03-2016 End: 02-09-2016 Pulmonary Function Test - complete Pulmonary Function Test - complete [facility] Work Phone: Start: 07-03-2016 End: 02-09-2016 Pulmonary stress test/simple Pulmonary stress testing; simple (eg, 6-minute walk) [facility] Work Phone: Start: 05-02-2016 End: 05-02-2016 Follow Up Appt 3 months Follow Up Appt 3 months [facility] Work Phone: Start: 05-02-2016 End: 05-02-2016 Pacer Clinic [facility] Work Phone: Start: 05-02-2016 End: 05-02-2016 Follow Up Appt 3 months Follow Up Appt 3 months [facility] Work Phone: Start: 05-02-2016 End: 05-02-2016 Pacer Clinic [facility] Work Phone: Start: 03-28-2016 End: 03-28-2016 REVENUE STAMP CUTTER REVENUE STAMP CUTTER [facility] Work Phone: Start: 03-28-2016 End: 03-28-2016 Follow Up Appt 6 months Follow Up Appt 6 months [facility] Work Phone: Start: 03-28-2016 End: 03-28-2016 REVENUE STAMP CUTTER REVENUE STAMP CUTTER [facility] Work Phone: Start: 03-28-2016 End: 03-28-2016 Follow Up Appt 6 months Follow Up Appt 6 months [facility] Work Phone: Start: 02-09-2016 End: 02-09-2016 BWA BWA [facility] Work Phone: Start: 02-09-2016 End: 02-09-2016 Follow Up Appt 6 months Follow Up Appt 6 months [facility] Work Phone: Start: 02-09-2016 [...] 3 months Follow Up Appt 3 months [facility] Work Phone: Start: 01-26-2016 End: 03-16-2016 [facility] Clinic [facility] Work Phone: Start: 10-26-2015 End: 03-16-2016 Follow Up Appt 3 months Follow Up Appt 3 months [facility] Work Phone: Start: 10-26-2015 [...] 6 months Follow Up Appt 6 months [facility] Work Phone: Start: 09-28-2015 End: 09-28-2015 Lipid 1996 panel *Lipid Profile CC PCP [facility] Work Phone: Start: 09-28-2015 End: 09-28-2015 MMM MMM [facility] Work Phone: Start: 09-28-2015 End: [...] Group Work Phone: Start: 08-18-2015 End: 08-18-2015 [facility] Work Phone: Start: 08-18-2015 End: 08-18-2015 Follow Up Appt 6 months Follow Up Appt 6 months [facility] Work Phone: Start: 08-18-2015 End: 08-18-2015 [facility] Work Phone: Start: 08-18-2015 End: 08-18-2015 Follow Up Appt 6 months Follow Up Appt 6 months [facility] Work Phone: Start: 07-26-2015 End: 03-16-2016 Follow Up Appt 3 months Follow Up Appt 3 months [facility] Work Phone: Start: 07-26-2015 End: 03-16-2016 Pacer Clinic [facility] Work Phone: Start: 07-26-2015 End: 03-16-2016 Follow Up Appt 3 months Follow Up Appt 3 months [facility] Work Phone: Start: 07-26-2015 End: 03-16-2016 Pacer Clinic [facility] Work Phone: Start: 03-30-2015 End: 03-30-2015 [facility] Work Phone: Start: 03-30-2015 End: 03-16-2016 Follow Up Appt 3 months Follow Up Appt 3 months [facility] Work Phone: Start: 03-30-2015 End: 03-30-2015 Follow Up Appt 6 months Follow Up Appt 6 months [facility] Work Phone: Start: 03-30-2015 End: 03-16-2016 [facility] Clinic [facility] Work Phone: Start: 03-30-2015 End: 03-30-2015 [facility] Work Phone: Start: 03-30-2015 End: 03-16-2016 Follow Up Appt 3 months Follow Up Appt 3 months [facility] Work Phone: Start: 03-30-2015 End: 03-30-2015 Follow Up Appt 6 months Follow Up Appt 6 months [facility] Work Phone: Start: 03-30-2015 End: 03-16-2016 [facility] Clinic [facility] Work Phone: Start: 01-26-2015 End: 07-05-2015 Follow Up Appt 6 months Follow Up Appt 6 months [facility] Work Phone: Start: 01-26-2015 End: 03-24-2015 Pulmonary Function Test - complete Pulmonary Function Test - complete [facility] Work Phone: Start: 01-26-2015 End: 07-05-2015 Pulmonary stress test/simple Pulmonary stress testing; simple (eg, 6-minute walk) [facility] Work Phone: Start: 01-26-2015 End: 07-05-2015 Follow Up Appt 6 months Follow Up Appt 6 months [facility] Work Phone: Start: 01-26-2015 End: 03-24-2015 Pulmonary Function Test - complete Pulmonary Function Test - complete [facility] Work Phone: Start: 01-26-2015 End: 07-05-2015 Pulmonary stress test/simple Pulmonary stress testing; simple (eg, 6-minute walk) [facility] Work Phone: Start: 01-22-2015 End: 03-24-2015 Follow Up Appt 3 months Follow Up Appt 3 months [facility] Work Phone: Start: 01-22-2015 End: 03-24-2015 Pacer Clinic [facility] Work Phone: Start: 01-22-2015 End: [...] Phone: Start: 09-24-2014 End: 03-24-2015 MMM MMM [facility] Work Phone: Start: 09-24-2014 End: 03-24-2015 [facility] Clinic [facility] Work Phone: Start: 09-24-2014 End: 03-24-2015 Follow Up Appt 3 months Follow Up Appt 3 months [facility] Work Phone: Start: 09-24-2014 End: 03-24-2015 Follow Up Appt 6 months Follow Up Appt 6 months [facility] Work Phone: Start: 09-24-2014 End: 03-24-2015 MMM MMM [facility] Work Phone: Start: 09-24-2014 End: 03-24-2015 Pacer Clinic [facility] Work Phone: Start: 07-28-2014 End: 07-28-2014 Follow Up Appt 6 months Follow Up Appt 6 months [facility] Work Phone: Start: 07-28-2014 End: 07-28-2014 Follow Up Appt 6 months Follow Up Appt 6 months [facility] Work Phone: Start: 06-19-2014 End: 03-24-2015 Follow Up Appt 3 months Follow Up Appt 3 months [facility] Work Phone: Start: 06-19-2014 End: 03-24-2015 Pacer Clinic [facility] Work Phone: Start: 06-19-2014 End: 03-24-2015 Follow Up Appt 3 months Follow Up Appt 3 months [facility] Work Phone: Start: 06-19-2014 End: 03-24-2015 Pacer Clinic [facility] Work Phone: Start: 03-17-2014 End: 03-16-2016 *CBC with Differential *CBC with Differential [facility] Work Phone: Start: 03-17-2014 End: 03-17-2014 REVENUE STAMP CUTTER [employer] Work Phone: Start: 03-17-2014 End: 03-24-2015 Follow Up Appt 3 months Follow Up Appt 3 months [employer] Work Phone: Start: 03-17-2014 End: 03-17-2014 Follow Up Appt 6 months Follow Up Appt 6 months [employer] Work Phone: Start: 03-17-2014 End: 03-16-2016 Lower GI hemoglobin IA Ql (St) *STOB - Stool, Occult Blood [facility] Work Phone: Start: 03-17-2014 End: 03-24-2015 Pacer [facility] Work Phone: Start: 03-17-2014 End: 03-16-2016 *CBC with Differential *CBC with Differential [facility] Work Phone: Start: 03-17-2014 End: 03-17-2014 REVENUE STAMP CUTTER [employer] [facility] Work Phone: Start: 03-17-2014 End: 03-24-2015 Follow Up Appt 3 months Follow Up Appt 3 months [employer] Work Phone: Start: 03-17-2014 End: 03-17-2014 Follow Up Appt 6 months Follow Up Appt 6 months [employer] Work Phone: Start: 03-17-2014 End: 03-16-2016 Hemoglobin by Imm presence in stool *STOB - Stool, Occult Blood [facility] Work Phone: Start: 03-17-2014 End: 03-24-2015 Pacer [facility] Work Phone: Start: 01-27-2014 End: 02-26-2014 Follow Up Appt 6 months Follow Up Appt 6 months [facility] Work Phone: Start: 01-27-2014 End: 02-04-2016 Pulmonary Fuction Test - complete Pulmonary Fuction Test - complete [facility] Work Phone: Start: 01-27-2014 End: 02-04-2016 Pulmonary stress test/simple Pulmonary stress testing; simple (eg, 6-minute walk) [facility] Work Phone: Start: 01-27-2014 End: 02-26-2014 Follow Up Appt 6 months Follow Up Appt 6 months [facility] Work Phone: Start: 01-27-2014 End: 02-04-2016 Pulmonary Fuction Test - complete Pulmonary Fuction Test - complete [facility] Work Phone: Start: 01-27-2014 End: 02-04-2016 Pulmonary stress test/simple Pulmonary stress testing; simple (eg, 6-minute walk) [facility] Work Phone: Start: 12-11-2013 End: 12-11-2013 Device Interrogation Device Interrogation [facility] Work Phone: Start: 12-11-2013 End: 12-11-2013 Echocardiography Echocardiogram (complete) [facility] Work Phone: Start: 12-11-2013 End: 02-26-2014 Follow Up Appt 3 months Follow Up Appt 3 months [facility] Work Phone: Start: 12-11-2013 End: 12-11-2013 MMM MMM [facility] Work Phone: Start: 12-11-2013 End: 02-26-2014 Pacer Clinic [facility] Work Phone: Start: 12-11-2013 End: 12-11-2013 Device Interrogation Device Interrogation [facility] Work Phone: Start: 12-11-2013 End: 12-11-2013 Echocardiography Echocardiogram (complete) [facility] Work Phone: Start: 12-11-2013 End: 02-26-2014 Follow Up Appt 3 months Follow Up Appt 3 months [facility] Work Phone: Start: 12-11-2013 End: 12-11-2013 MMM MMM [facility] Work Phone: Start: 12-11-2013 End: 02-26-2014 [facility] Clinic [facility] Work Phone: Start: 11-04-2013 End: 12-11-2013 Follow Up Appt 3 months Follow Up Appt 3 months [employer] Work Phone: Start: 11-04-2013 End: 12-11-2013 Pacer Clinic [facility] Work Phone: Start: 11-04-2013 End: 12-11-2013 Follow Up Appt 3 months Follow Up Appt 3 months [employer] Work Phone: Start: 11-04-2013 End: 12-11-2013 Pacer Clinic [facility] Work Phone: Start: 10-28-2013 End: 01-05-2014 Echo tthrc r-t 2d w/wom-mode compl spec&colr d Echo Complete with Color Flow [facility] Work Phone: Start: 10-28-2013 End: 02-04-2016 Pulmonary Fuction Test - complete Pulmonary Fuction Test - complete [facility] Work Phone: Start: 10-28-2013 End: 02-04-2016 Pulmonary Fuction Test - complete Pulmonary Fuction Test - complete [facility] Work Phone: Start: 10-28-2013 End: 01-05-2014 Tte w/doppler, complete Echo Complete with Color Flow [facility] Work Phone: Start: 08-05-2013 End: 08-05-2013 Follow Up Appt 3 months Follow Up Appt 3 months [facility] Work Phone: Start: 08-05-2013 End: 08-05-2013 Follow Up Appt 6 months Follow Up Appt 6 months [facility] Work Phone: Start: 08-05-2013 End: 08-05-2013 MMM MMM [facility] Work Phone: Start: 08-05-2013 End: [...] 08-05-2013 End: 08-05-2013 Pacer Clinic [facility] Clinic [facility] Work Phone: Start: 05-06-2013 End: 12-11-2013 Follow Up Appt 3 months Follow Up Appt 3 months [facility] Work Phone: Start: 05-06-2013 End: 12-11-2013 Pacer Clinic [facility] Work Phone: Start: 05-06-2013 End: 12-11-2013 Follow Up Appt 3 months Follow Up Appt 3 months [facility] Work Phone: Start: 05-06-2013 End: 12-11-2013 Pacer Clinic [facility] Work Phone: Start: 01-20-2013 End: 12-11-2013 *BMP *BMP [facility] Work Phone: Start: 01-20-2013 End: 12-11-2013 *CBC with Differential *CBC with Differential [facility] Work Phone: Start: 01-20-2013 End: 11-26-2013 *Hepatic Function Panel *Hepatic Function Panel [facility] Work Phone: Start: 01-20-2013 End: 01-20-2013 REVENUE STAMP CUTTER REVENUE STAMP CUTTER [facility] Work Phone: Start: 01-20-2013 End: 01-20-2013 Follow Up Appt 3 months Follow Up Appt 3 months [facility] Work Phone: Start: 01-20-2013 End: 01-20-2013 Follow Up Appt 6 months Follow Up Appt 6 months [facility] Work Phone: Start: 01-20-2013 End: 01-20-2013 Follow Up Appt Other Follow Up Appt Other [facility] Work Phone: Start: 01-20-2013 End: 11-26-2013 Lipid 1996 panel *Lipid Profile CC PCP [facility] Work Phone: Start: 01-20-2013 End: 01-20-2013 Pacer Clinic [facility] Work Phone: Start: 01-20-2013 End: 12-11-2013 *BMP *BMP [facility] Work Phone: Start: 01-20-2013 End: 12-11-2013 *CBC with Differential *CBC with Differential [facility] Work Phone: Start: 01-20-2013 End: 11-26-2013 *Hepatic Function Panel *Hepatic Function Panel [facility] Work Phone: Start: 01-20-2013 End: 01-20-2013 REVENUE STAMP CUTTER REVENUE STAMP CUTTER [facility] Work Phone: Start: 01-20-2013 End: 01-20-2013 Follow Up Appt 3 months Follow Up Appt 3 months [facility] Work Phone: Start: 01-20-2013 End: 01-20-2013 Follow Up Appt 6 months Follow Up Appt 6 months [facility] Work Phone: Start: 01-20-2013 End: 01-20-2013 Follow Up Appt Other Follow Up Appt Other [facility] Work Phone: Start: 01-20-2013 End: 11-26-2013 Lipid panel [AGGREGATE] *Lipid Profile CC PCP [facility] Work Phone: Start: 01-20-2013 End: 01-20-2013 Pacer Clinic Pacer Clinic [facility] Work Phone: Start: 10-15-2012 End: 01-09-2013 Follow Up Appt 3 months Follow Up Appt 3 months [facility] Work Phone: Start: 10-15-2012 End: 01-09-2013 Pacer Clinic Pacer Clinic [facility] Work Phone: Start: 10-15-2012 End: 01-09-2013 Follow Up Appt 3 months Follow Up Appt 3 months [facility] Work Phone: Start: 10-15-2012 End: 01-09-2013 Pacer Clinic Pacer Clinic [facility] Work Phone: Start: 08-13-2012 End: 01-09-2013 Follow Up Appt 3 months Follow Up Appt 3 months [facility] Work Phone: Start: 08-13-2012 End: 01-09-2013 Pacer Clinic Pacer Clinic [facility] Work Phone: Start: 08-13-2012 End: [...] 6 months Follow Up Appt 6 months [facility] Work Phone: Start: 07-04-2012 End: 07-04-2012 Lipid 1996 panel *Lipid Profile [facility] Work Phone: Start: 07-04-2012 End: 07-04-2012 MMM MMM [facility] Work Phone: Start: 07-04-2012 End: 07-04-2012 Follow Up Appt 6 months Follow Up Appt 6 months [facility] Work Phone: Start: 07-04-2012 End: 07-04-2012 MMM MMM [facility] Work Phone: Start: 07-03-2012 End: 12-11-2013 *Hepatic Function Panel *Hepatic Function Panel [facility] Work Phone: Start: 07-03-2012 End: 12-11-2013 Lipid panel [AGGREGATE] *Lipid Profile [facility] Work Phone: Start: 07-03-2012 End: 12-11-2013 *Hepatic Function Panel *Hepatic Function Panel [facility] Work Phone: Start: 07-03-2012 End: 12-11-2013 Lipid panel [AGGREGATE] *Lipid Profile [facility] Work Phone: Start: 05-09-2012 End: 07-04-2012 Follow Up Appt 3 months Follow Up Appt 3 months [facility] Work Phone: Start: 05-09-2012 End: 07-04-2012 Pacer Clinic Pacer Clinic [facility] Work Phone: Start: 05-09-2012 End: [...] 07-04-2012 *Hepatic Function Panel *Hepatic Function Panel [facility] Work Phone: Start: 09-11-2011 End: 07-04-2012 Lipid 1996 panel *Lipid Profile [facility] Work Phone: Start: 09-11-2011 End: 07-04-2012 *Hepatic Function Panel *Hepatic Function Panel [facility] Work Phone: Start: 09-11-2011 End: 07-04-2012 Lipid panel [AGGREGATE] *Lipid Profile [facility] Work Phone: Start: 04-11-2011 End: 06-06-2011 *BMP *BMP [facility] Work Phone: Start: 04-11-2011 End: [...] Phone: Start: 04-11-2011 End: 06-06-2011 *BMP *BMP [facility] Work Phone: Start: 04-11-2011 End: 06-06-2011 *Hepatic Function Panel *Hepatic Function Panel [facility] Work Phone: Start: 04-11-2011 End: 06-06-2011 Lipid panel [AGGREGATE] *Lipid Profile [facility] Work Phone: Start: 04-11-2011 End: 06-06-2011 Magnesium *Magnesium [facility] Work Phone: Start: 04-11-2011 End: 06-06-2011 Thyroid stimulating hormone (TSH) *TSH [facility] Work Phone: Start: 04-11-2011 End: 06-06-2011 Thyroxine (T4) *T4 (Total) [facility] Work Phone: Start: 04-04-2011 End: 04-04-2011 Echocardiography Echocardiogram (complete) [facility] Work Phone: Start: 04-04-2011 End: [...] 6 weeks Follow Up Appt 6 weeks [facility] Work Phone: Start: 04-04-2011 End: 04-04-2011 Nuclear stress test -adenosine Nuclear stress test -adenosine [facility] Work Phone: Immunizations Immunization Date Immunization Notes Care Provider Timur lind 10-13-2022 tetanus toxoid, redu jose diphtheria toxoid, and acellular pertussis vaccine, adsorbed 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 [facility] Payers Date Payer Category Payer Medicare [id number] 2022 Private Health Insurance [id number] 1955 Unknown [id number] Social History Date Type Detail Facility Start: 10-13-2022 Tobacco smoking status Ex-smoker (fi nding) [facility] Sex Assigned At Male [facility] Medical Equipment Procedure Code Equipment Code Equipment Origin al Text Equipment Identifier Dates Unknown Unknown 02/19/10 Unknown Unknown FDA Start: 02-19-2010 Functional Status Date Assessment Result Facility 10-14-2022 Functional Status Room check performed [facility] 10-14-2022 Functional Status [facility] 10-13-2022 Functional Status Sensory Deficits None A [facility] Mental Status Date Assessment Result Facility 10-14-2022 Mental Status [facility]ed x [facility] 10-13-2022 Mental Status [facility] 10-13-2022 Mental Status [facility] Clinical Note 10-18-2022 Note Date & [...] Locations *1: This test was performed at: [facility], [address] [place] [address], [facility] , [facility] ([place]) Clinical Note 10-18-2022 Note Date & Type [...] Locations *1: This test was performed at: [address], [address] [place] [address] ([place]) Clinical Note 10-16-2022 Note Date & Type [...] Locations *1: This test was performed at: [address], [address] [place] [address] ([place]) Evaluation + Plan note 10-14-2022 Note [...] collaborating with physician, and documenting in chart. 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 Heal more [...] 02/02/2001 Document Revised: 03/20/2018 Document Reviewed: 03/09/2017 [employer] Patient Education 2020 [employer]. Follow Up Care 10/13/2022 16:14:15 With:RUBÉN KENNEY DPM, Surgery Address: [address] [facility], [address] [facility] [place] [address]- When:5 to 7 days Comments:call office to schedule an appointment next week with Dr. Kenney. He will arrange for you to see jahaira Real. With:HUMBLE GARCIA MD Address: [facility] [place] [address] [place] [address]- When:5 to 7 days Comments:post-hospitalization follow-up [facility] Clinical Note 10-14-2022 Note Date & Type Note Facility 10-14-2022 Note Discharge Instructions Thank you for allowing [facility] to assist you with your healthcare needs. The following is important discharge information regarding your hospital visit. Your Care Team [facility] Your Diagnosis Toe pain-swelling What [...] to see Dr. Peacock vascular. Where: [address] [facility], [address] [facility] [place] [address]- Follow Up with HUMBLE GARCIA MD When Within 5 to 7 days Why: post-hospitalization follow-up Where: [facility] [address] [place] [address]- The Following Activity and Diet Have Been [...] 12 hours Duration: 14 Days Pickup at [facility] n/a New clindamycin (clindamycin 300 mg oral capsule) 1 cap by mouth Every 6 hours Duration: 14 Days Pickup at [facility] n/a New lactobacillus acidophilus (lactobacillus acidophilus oral tablet) 1 tab(s) by mouth Two (2) times a day Pickup at [facility] n/a Unchanged albuterol (Albuterol (Eqv-ProAir HFA) [...] for sleep 10 PM 10/13 Pharmacy Information [facility]: [address] [place], [place] [phone] Please take this list to your next [...] 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 Heal more [...] 02/02/2001 Document Revised: 03/20/2018 Document Reviewed: 03/09/2017 [employer] Patient Education 2020 [employer]. Additional Information VACCINATE! IT SAVES LIVES! Members of the community who have not yet received the COVID-19 vaccine and would like to receive it can visit one of [facility] vaccine clinics. There are many vaccine clinic locations within the [facility]. For locations and available times, please visit [email or web address] It is important to note that some COVID mobile vaccine clinics are held outdoors and may be canceled in rainy or stormy conditions. To learn more about pediatric vaccinations (ages 5-11), we invite you to visit the [facility] webpage. [email or web address]/[email or web address]-Frequently-[email or web address] -Questions.html To learn more about the COVID-19 vaccine, we invite you to visit the CDC website for a list of frequently asked questions.https://www.cdc.gov/coronavi manuela/2019-ncov/vaccines/faq.html [facility] Patient Portal Access Instructions: Stay connected with your healthcare team and access your personal medical information anytime with the [facility] Patient Portal. Please follow the directions below to create your [facility] account: 1.Access the email account you provided upon registration to the hospital/physician office.2.Look for an invitation email from [facility].3.Open the email and access the invitation link: Accept Invitation to [facility].4.Fill in the required nunes to create your account. To access your account, visit [email or web address]. Click the blue button labeled Access Patient [...] you will allow to register on the [facility] Patient Portal for access to your information. You can also access the [facility]ass[facility]EOSChart Patient Portal on the [facility] rhett. Simply click on Patient Portal and then log into your account. If you would like to receive a full copy of your medical records, please contact the [facility] Medical Records Department by calling [phone], Sunday through Sunday between 8 a.m. and [...] Call your local pharmacy or go to [email or web address] to find one close to you.3.Make use of household items: Use cat litter or old coffee grounds to dispose medications if other options are not available. Mix your drugs with these household products, seal them in an airtight container and throw it into the garbage. Call [facility]: [phone] to be sure your drugs can be [...] aware that I should contact my doctor. Patient/Kidney Puller Signature: _ Date/Time: Relationship to Patient: Witness Name/Signature: Date/Time: [facility] Clinical Note 10-13-2022 Note Date & Type [...] Interpreted by: Rizwan Cortez Preliminary Report By: Marok Helton Electronically signed By Rizwan Cortez Dictated Date: 10/13/2022 5:08:41 PM Prelim Date: 10/13/2022 5:13:09 PM Sign Date: 10/13/2022 5:42:05 PM Ordering Provider: LAMINE PHAM [facility] course Narrative Note Date & Type Note Facility Hospital course Narrative No data available for this section [facility] Summary Purpose Family History No Family History Records Found Advance Directives No Advanced Directives Records Found Additional Source Comments Patient Care team informatio n (unrecognized section and content) Care Team Personnel Name: HUMBLE GARCIA MD Member Role: Primary Care Physician Address: Address: [facility] [place] [address] [place] [address]- [place] Name: Sabina Wright RN Position: AO RN Member Role: ED RN Name: ELSA DARNELL MD Position: ED Physician Address: Address: [address] [place], [place] [address] Name: LAMINE PHAM DO Position: Resident Member Role: Resident Address: Address: [address] [place] [address] ED Resident [address] Name: TIA Gaston Position: AO RN [...] BE BASED ON THE PRIMARY CLINICAL RECORDS. [facility] [employer] [employer] [facility]. provides no warranty or guarantee of the accuracy or completeness of information in this document.
[2023-03-08 05:40] LABS: Bacteria 0 SEEN /hpf (None Seen); Mucous, Urine 0 SEEN /hpf (<or=2+); Red Blood Cells-Urine 0 SEEN /hpf (0-5); Squamous Epithelial Cells - UA 0 SEEN /hpf (0-5); White Blood Cells 0 SEEN /hpf (0-5)
[2023-03-08 05:47] LABS: Color, Urine Yellow (Yellow); Glucose, Dipstick 1000 mg/dl (Normal); Ketone-Dipstick Negative (Negative); Leukocyte Esterase-Dipstick 25 /ul (Negative); Nitrite-Dipstick Negative (Negative); Occult Blood-Urine 10 /ul (Negative); Protein-Dipstick 30 mg/dl (Negative); Specific Gravity, Urine 1.015 (1.002-1.030); Urine Clarity Clear (Clear); Urine Urobilinogen Normal (Normal)
[2023-03-08 05:53] LABS: Urine Bilirubin Dipstick 1 mg/dL (Negative)
[2023-03-08] MEDS: Vancomycin 125 MG/5 ML Susp PO.SYRINGE PO ×4 (06:11→23:49)
[2023-03-08] MEDS: 0.9% Saline Lock 10 ML Syringe IV (06:12)
[2023-03-08] MEDS: metroNIDAZOLE 500 MG/100 ML BAG 100 MG IV ×3 (06:12→22:09)
[2023-03-08] MEDS: Ipratropium/Albuterol Sulfate 3 ML AMPUL.NEB INHALATION ×2 (07:16→19:36)
[2023-03-08 07:19] LABS: PTHIN 55.6 pg/mL (18.4-80.1)
[2023-03-08 07:53] LABS: Absolute Lymphocyte Count 0.78 X10^3/uL (0.83-4.51); Basophil# 0.07 X10^3/uL; Basophil% 0.5 % (0-1); Eosinophil# 0.02 X10^3/uL; Eosinophils% 0.2 % (0-5); Hematocrit 44.8 % (40-54); Hemoglobin 14.7 g/dL (13.0-16.5); Lymphocyte # 0.78 X10^3/ul (0.83-4.51); Lymphocyte % 6.1 % (19-41); Mean Corp Hgb Conc 32.8 g/dL (32-36); Mean Corpuscular Hgb 29.1 pg (27.0-32.0); Mean Corpuscular Volume 88.7 fL (80-94); Mean Platelet Vol. 11.2 fl (6.2-12.0); Monocyte# 1.95 X10^3/uL; Monocyte% 15.1 % (0-10); NRBC Flagged by Analyzer 0 % (0-5); Neutrophil # 10.03 X10^3/uL (2.7-7.7); Neutrophil % 77.8 % (47-70); POSITIVE DIFFERENTIAL YES; Platelet Count 168 K/mm3 (150-450); RBC Distribution Width CV 14.6 % (11.6-14.6); RBC Distribution Width SD 47.4 fl (35.1-43.9); Red Blood Count 5.05 M/mm3 (4.6-6.2); White Blood Count 12.9 K/mm3 (4.4-11.0)
[2023-03-08 08:06] LABS: Differential Indicated SCAN CRITERIA MET
[2023-03-08 08:35] LABS: Differential Comment SCANNED
[2023-03-08 08:52] LABS: AST(SGOT) 15 U/L (15-37); Alanine Aminotransfer ALT/SGPT 17 U/L (16-61); Albumin, Serum 3.4 g/dL (3.2-5.0); Alkaline Phosphatase 82 U/L (45-117); Anion Gap 7 (5-15); BUN 29 mg/dL (7-18); BUN/Creat Ratio 20.6 RATIO (10-20); Chloride 104 mmol/L (98-107); Creatinine, Serum 1.41 mg/dL (0.70-1.30); EST Glomerular Filtration Rate 53 mL/min (>60); Est Glom Filt Rate - Afr Amer 64 mL/min (>60); Estimated Creatinine Clearance 60.71 ml/min; Globulin 3.3 g/dL (2.2-4.2); Glucose 154 mg/dL (74-106); Magnesium 2.2 mg/dL (1.6-2.6); Phosphorus 3.4 mg/dL (2.5-4.9); Potassium 4.5 mmol/L (3.5-5.1); Protein, Total 6.7 g/dL (6.4-8.2); Sodium Level 136 mmol/L (136-145); Thyroid Stim Hormone (TSH) 1.87 uIU/mL (0.358-3.74)
[2023-03-08] MEDS: Insulin Glargine-YFGN 100 UNIT/ML Pen 30 UNIT SC ×2 (09:14→22:13)
[2023-03-08] MEDS: Carvedilol 6.25 MG Tablet PO ×2 (09:15→16:33)
[2023-03-08] MEDS: Ezetimibe 10 MG Tablet PO (09:15)
[2023-03-08] MEDS: Allopurinol 100 MG Tablet PO ×2 (09:15→16:34)
--- NOTE | 2023-03-08 09:23 | WOUNDNOTE ---
wound photo: left great toe
--- NOTE | 2023-03-08 09:24 | WOUNDNOTE ---
wound photo: left 4th toe
--- NOTE | 2023-03-08 09:25 | WOUNDNOTE ---
wound photo: right foot
--- NOTE | 2023-03-08 10:06 | PN.HOSP_ITS ---
Subjective Subjective Feels a little bit better, was able to give a stool sample states that he feels like he is having C. difficile again Objective Data Objective Data Vital Signs: Vital Signs Temp Pulse Resp BP Pulse Ox O2 Del Method 98.2 F 107 H 18 113/56 L 97 Room Air 03/08/23 09:09 03/08/23 09:09 03/08/23 09:09 03/08/23 09:09 03/08/23 09:09 03/08/23 09:09 Oxygen Delivery Method Room Air Weight: 228 lb 12.8 oz Body Mass Index (BMI) 27.8 Intake & Output: Intake and Output for Last 24 Hours 03/07/23 03/08/23 03/09/23 03:59 03:59 03:59 Intake Total 2099 993.75 / 993.75 Balance 2099 993.75 / 993.75 Lab / Micro Data 03/08/23 07:14 03/08/23 07:14 Labs: Laboratory Results - last 24 hr 03/07/23 21:10: WBC 18.2 H, RBC 6.04, Hgb 17.6 H, Hct 54.6 H, MCV 90.4, MCH 29.1, MCHC 32.2, RDW Std Deviation 47.7 H, RDW Coeff of Eula 14.6, Plt Count 227, MPV 11.6, Immature Gran % (Auto) 0.600, Neut % (Auto) 79.6 H, Lymph % (Auto) 8.1 L, [place] % (Auto) 10.2 H, Eos % (Auto) 0.8, Baso % (Auto) 0.7, Absolute Neuts (auto) 14.5 H, Absolute Lymphs (auto) 1.47, Nucleated RBC % 0, Differential Comment SCANNED, Diff Path Review June, Sodium 139, Potassium 3.4 L, Chloride 99, Carbon Dioxide 31.0, Anion Gap 9, BUN 28 H, Creatinine 1.94 H, Estim Creat Clear Calc 48.68, Est GFR (MDRD) Af Amer 44 L, Est GFR (MDRD) Non-Af 37 L, BUN/Creatinine Ratio 14.4, Glucose 98, Calcium 11.1 H, Total Bilirubin 1.00, AST 21, ALT 24, Alkaline Phosphatase 123 H, Total Protein 9.2 H, Albumin 4.7, Globulin 4.5 H, Albumin/Globulin Ratio 1.0, Lipase 26, PTH Intact 55.6 03/08/23 05:30: Urine Color Yellow, Urine Clarity Clear, Urine pH 5.0, Ur Specific [place] 1.015, Urine Protein 30 H, Urine Glucose (UA) 1000 H, Urine Ketones Negative, Urine Occult Blood 10 H, Urine Nitrite Negative, Urine Bilirubin 1 H, Urine Urobilinogen Normal, Ur Leukocyte Esterase 25 H, Urine RBC 0 SEEN, Urine WBC 0 SEEN, Ur Squamous Epith Cells 0 SEEN, Urine Bacteria 0 SEEN, Urine Mucus 0 SEEN 03/08/23 07:14: WBC 12.9 H, RBC 5.05, Hgb 14.7, Hct 44.8, MCV 88.7, MCH 29.1, MCHC 32.8, RDW Std Deviation 47.4 H, RDW Coeff of Eula 14.6, Plt Count 168, MPV 11.2, Immature Gran % (Auto) 0.300, Neut % (Auto) 77.8 H, Lymph % (Auto) 6.1 L, [place] % (Auto) 15.1 H, Eos % (Auto) 0.2, Baso % (Auto) 0.5, Absolute Neuts (auto) 10.0 H, Absolute Lymphs (auto) 0.78 L, Nucleated RBC % 0, Differential Comment SCANNED, Diff Path Review June, Sodium 136, Potassium 4.5, Chloride 104, Carbon Dioxide 25.0, Anion Gap 7, BUN 29 H, Creatinine 1.41 H, Estim Creat Clear Calc 60.71, Est GFR (MDRD) Af Amer 64, Est GFR (MDRD) Non-Af 53 L, BUN/Creatinine Ratio 20.6 H, Glucose 154 H, Calcium 9.0, Phosphorus 3.4, Magnesium 2.2, Total Bilirubin 1.00, AST 15, ALT 17, Alkaline Phosphatase 82, Total Protein 6.7, Albumin 3.4, Globulin 3.3, Albumin/Globulin Ratio 1.0, TSH 1.87 Micro: Microbiology 03/08/23 08:09 Stool Stool Lactoferrin - Final 03/08/23 08:09 Stool Clostridioides difficile (PCR) - Final 03/07/23 21:10 Mucosa - Nose SARS-CoV-2, Influenza & RSV (PCR) - Final Radiography Diagnostic Testing: Radiology Impression Abdomen/Pelvis CT 03/07/23 22:17 IMPRESSION: Mild diffuse distal small bowel and colonic fluid which is nonspecific but more than typically seen, sometimes associated with mild infectious colitis or enteritis with diarrhea. Mild chronic circumferential distal esophageal wall thickening without surrounding inflammation or significant change from July 14, 2020. Minimal hiatal hernia. Consider follow-up fluoroscopic esophagram or endoscopy to further evaluate esophageal mucosa when clinically able. Large prostate. Splenic sequela of prior granulomatous disease. Electronically Signed: Leonel Roberto MD at 23:58 EST , Physical Exam Narrative General: Alert, Oriented x3, Cooperative, No apparent distress HEENT: Atraumatic, PERRLA, EOMI, Normocephalic Oral: Moist Mucosa Neck: Supple, No JVD Lungs: Diminished, Normal air movement, No rhonchi, No wheeze, No rales Cardiovascular: Regular rate, Regular Rhythm, Normal S1, Normal S2, No murmurs Abdomen: Soft, minimally tender, Non-Distended, No Hepato-splenomegaly Extremities: No edema, Capillary Refill Less than 3 Seconds Skin: No rashes, No breakdown Musculoskeletal: No Tenderness to Palpation of Joints or Extremities Neurological: No focal neurologic deficit, Motor Exam 5/5 strength throughout, Sensory exam intact to light touch and pain Psych/Mental Status: Normal Affect, Appropriate Assessment & Plan Assessment/Plan (1) Clostridioides difficile infection: (2) BRENNAN (acute kidney injury): (3) Esophageal thickening: (4) Intractable nausea and vomiting: (5) Generalized weakness: PLAN: Plan 1. BRENNAN due to dehydration from gastroenteritis versus a C. difficile colitis ? Continue with p.o. vancomycin as well as Flagyl as he has had multiple episodes of C. difficile colitis, if this is his third episode he will need a prolonged course of antibiotics ? Enteric pathogen panel as well as C. difficile panel is pending ?CT scan with mild infectious colitis ? Continue with IV fluids 2. Chronic systolic CHF/HTN/HLD/CAD status post CABG/history of nonsustained VT ? Given his IV fluids and his elevated creatinine we will hold his Lasix and losartan ? Can resume his Lipitor and Coreg ? Blood pressures are stable, will monitor make adjustments as necessary 3. DM2 ? He is on significant insulin, will decrease his dose ? Accu-Cheks ACHS ? Sliding scale insulin ? We will monitor and make adjustments as necessary 4. History of DVT/PE ? We will continue with his Xarelto 5. COPD ? Not in exacerbation ? 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 Next of kin: [place] law dictates a PRIORITY LIST for identifying legal decision-maker/legal next of kin in the following order (LNOK): 1st: The patient?s legal guardian, if any 2nd: The patient's spouse (if status is questionable, consult Risk Management) 3rd: The patient?s adult child(devorah) (majority, if multiple children) 4th: The patient?s parents 5th: The patient?s adult siblings (majority, if multiple children siblings) Charges/Coding Visit Charges Inpatient E&M: 87908 Subs Hosp L2
[2023-03-08] MEDS: Insulin Lispro 100 UNIT/ML INSULN.PEN SC ×3 (11:21→22:12)
[2023-03-08 11:42] LABS: Bedside Glucose 314 mg/dL (74-106)
--- NOTE | 2023-03-08 13:05 | CASEMGMT ---
TIA ESCOBAR Assessment: Face to Face with pt for initial transition planning/care coordination assessment. RN LUZ introduced self and role at [facility], pt voices understanding and consents to assessment. Pt is A&O x4 and answers all questions appropriately at this time. Pt lying in bed in no distress with neighbor visiting. Pt agreeable to assessment with neighbor present. Care providers, pharmacy, and demographics verified/updated. Admitting Dx:c.difficile colitis, BRENNAN PCP:Jose Specialists: damion Kenney; malena Garza Preferred Pharmacy:[facility] Retail Insurance:[employer] Prescription Benefit: yes LNOK:Janett Meier dtr; Shereen Blanco dtr Living Arrangements: Pt lives alone in a mobile home with 3 steps to enter with a rail. Pt reports he is I in ADL's and denies concerns at home. Transportation: Pt drives self and denies concerns with transportation. DME:cane, walker- does not use; BGM with sufficient supplies as well as insulin and needles HHC/SNF:Denies hx of Pt states no concerns with going home at time of dc. Pt states no further concerns/needs. CM to follow. Advised pt to ask CM if any further question/concerns/needs arise, voices understanding. Pt Goal:Home Plan:Home
--- NOTE | 2023-03-08 13:59 | CPS ---
patient does not want incenitve or pep, outright refused
--- NOTE | 2023-03-08 14:12 | NURSING ---
blood sugar checked per pt request
[2023-03-08 14:33] LABS: Bedside Glucose 366 mg/dL (74-106)
[2023-03-08 16:28] LABS: Bedside Glucose 149 mg/dL (74-106)
[2023-03-08] MEDS: Rivaroxaban 20 MG Tablet PO (16:34)
[2023-03-08 16:49] LABS: Bedside Glucose 369 mg/dL (74-106)
[2023-03-08] MEDS: Loratadine 10 MG Tablet PO (22:09)
[2023-03-08] MEDS: traZODone 50 MG Tablet PO (22:09)
[2023-03-08] MEDS: KCL 20MEQ in 0.9% NS 20 MEQ/1,000 ML IV.SOLN. 100 MEQ IV (22:09)
[2023-03-08] MEDS: hydrOXYzine PAM 25 MG Capsule 50 MG PO (22:09)
[2023-03-08] MEDS: Atorvastatin Calcium 80 MG Tablet PO (22:09)
[2023-03-09] VITALS (7 sets, daily range): BP systolic 122–136; BP diastolic 60–69; PULSE 77–100; RESP 16–20; TEMP 36.7–37.3; O2SAT 94–99; BMI 27.8
[2023-03-09 00:16] LABS: Bedside Glucose 364 mg/dL (74-106)
[2023-03-09] MEDS: metroNIDAZOLE 500 MG/100 ML BAG 100 MG IV ×2 (06:04→14:30)
[2023-03-09] MEDS: Vancomycin 125 MG/5 ML Susp PO.SYRINGE PO ×2 (06:04→12:25)
[2023-03-09 06:28] LABS: Absolute Lymphocyte Count 2.32 X10^3/uL (0.83-4.51); Absolute Neutrophil Count 5.6 X10^3/uL (2.0-7.7); Basophil# 0.04 X10^3/uL; Basophil% 0.4 % (0-1); Eosinophils% 4.1 % (0-5); Hematocrit 42.5 % (40-54); Hemoglobin 13.8 g/dL (13.0-16.5); Lymphocyte # 2.32 X10^3/ul (0.83-4.51); Lymphocyte % 23.8 % (19-41); Mean Corp Hgb Conc 32.5 g/dL (32-36); Mean Corpuscular Hgb 29.2 pg (27.0-32.0); Mean Platelet Vol. 10.8 fl (6.2-12.0); Monocyte# 1.35 X10^3/uL; Monocyte% 13.8 % (0-10); NRBC Flagged by Analyzer 0 % (0-5); Neutrophil % 57.5 % (47-70); Platelet Count 126 K/mm3 (150-450); RBC Distribution Width CV 14.5 % (11.6-14.6); RBC Distribution Width SD 47.6 fl (35.1-43.9); Red Blood Count 4.72 M/mm3 (4.6-6.2); White Blood Count 9.8 K/mm3 (4.4-11.0)
[2023-03-09] MEDS: Insulin Lispro 100 UNIT/ML INSULN.PEN SC ×4 (06:30→21:14)
[2023-03-09 06:45] LABS: Anion Gap 4 (5-15); BUN 21 mg/dL (7-18); BUN/Creat Ratio 18.8 RATIO (10-20); Chloride 110 mmol/L (98-107); Creatinine, Serum 1.12 mg/dL (0.70-1.30); EST Glomerular Filtration Rate 69 mL/min (>60); Est Glom Filt Rate - Afr Amer 83 mL/min (>60); Estimated Creatinine Clearance 76.42 ml/min; Glucose 195 mg/dL (74-106); Potassium 4.1 mmol/L (3.5-5.1); Sodium Level 139 mmol/L (136-145)
[2023-03-09 06:46] LABS: Bedside Glucose 208 mg/dL (74-106)
[2023-03-09] MEDS: KCL 20MEQ in 0.9% NS 20 MEQ/1,000 ML IV.SOLN. 100 MEQ IV ×2 (09:45→21:17)
[2023-03-09] MEDS: Ezetimibe 10 MG Tablet PO ×2 (09:46)
[2023-03-09] MEDS: Carvedilol 6.25 MG Tablet PO ×2 (09:46→18:06)
[2023-03-09] MEDS: Insulin Glargine-YFGN 100 UNIT/ML Pen 30 UNIT SC (09:46)
[2023-03-09] MEDS: Allopurinol 100 MG Tablet PO ×2 (09:47→18:08)
[2023-03-09 13:04] LABS: Bedside Glucose 312 mg/dL (74-106)
[2023-03-09] MEDS: Ipratropium/Albuterol Sulfate 3 ML AMPUL.NEB INHALATION (13:51)
[2023-03-09 14:51] LABS: Pathologist Review Reviewed
[2023-03-09 14:56] LABS: Pathologist Review Reviewed
--- NOTE | 2023-03-09 15:57 | PN.HOSP_ITS ---
Subjective Subjective Doing well, tolerated a regular diet today however still had some abdominal pain. Fecal studies are negative, he does have elevated leukocytes but C. difficile and enteric pathogen panel are negative Objective Data Objective Data Vital Signs: Vital Signs Temp Pulse Resp BP Pulse Ox O2 Del Method 99.1 F 86 16 126/69 H 95 Room Air 03/09/23 15:49 03/09/23 15:49 03/09/23 15:49 03/09/23 15:49 03/09/23 15:49 03/09/23 15:49 Oxygen Delivery Method Room Air Weight: 228 lb 13.437 oz Body Mass Index (BMI) 27.8 Intake & Output: Intake and Output for Last 24 Hours 03/08/23 03/09/23 03/10/23 03:59 03:59 03:59 Intake Total 2099 2193.75 / 2193.75 1956.00 / 1955.00 Balance 2099 2193.75 / 2193.75 195.00 / 1955.00 Lab / Micro Data 03/09/23 05:50 03/09/23 05:50 Labs: Laboratory Results - last 24 hr 03/07/23 21:10: Diff Path Review Reviewed 03/08/23 06:13: POC Glucose 149 H 03/08/23 07:14: Diff Path Review Reviewed 03/08/23 16:28: POC Glucose 369 H 03/08/23 22:11: POC Glucose 364 H 03/09/23 05:50: WBC 9.8, RBC 4.72, Hgb 13.8, Hct 42.5, MCV 90.0, MCH 29.2, MCHC 32.5, RDW Std Deviation 47.6 H, RDW Coeff of Eula 14.5, Plt Count 126 L, MPV 10.8, Immature Gran % (Auto) 0.400, Neut % (Auto) 57.5, Lymph % (Auto) 23.8, [place] % (Auto) 13.8 H, Eos % (Auto) 4.1, Baso % (Auto) 0.4, Absolute Neuts (auto) 5.6, Absolute Lymphs (auto) 2.32, Nucleated RBC % 0, Sodium 139, Potassium 4.1, Chloride 110 H, Carbon Dioxide 25.0, Anion Gap 4 L, BUN 21 H, Creatinine 1.12, Estim Creat Clear Calc 76.42, Est GFR (MDRD) Af Amer 83, Est GFR (MDRD) Non-Af 69, BUN/Creatinine Ratio 18.8, Glucose 195 H, Calcium 9.0 03/09/23 06:24: POC Glucose 208 H 03/09/23 11:13: POC Glucose 312 H Micro: Microbiology 03/08/23 08:09 Stool Stool Lactoferrin - Final 03/08/23 08:09 Stool Enteric Bacteriology - Final 03/08/23 08:09 Stool Clostridioides difficile (PCR) - Final 03/07/23 21:10 Mucosa - Nose SARS-CoV-2, Influenza & RSV (PCR) - Final Physical Exam Narrative General: Alert, Oriented x3, Cooperative, No apparent distress HEENT: Atraumatic, PERRLA, EOMI, Normocephalic Oral: Moist Mucosa Neck: Supple, No JVD Lungs: Diminished, Normal air movement, No rhonchi, No wheeze, No rales Cardiovascular: Regular rate, Regular Rhythm, Normal S1, Normal S2, No murmurs Abdomen: Soft, minimally tender, Non-Distended, No Hepato-splenomegaly Extremities: No edema, Capillary Refill Less than 3 Seconds Skin: No rashes, No breakdown Musculoskeletal: No Tenderness to Palpation of Joints or Extremities Neurological: No focal neurologic deficit, Motor Exam 5/5 strength throughout, Sensory exam intact to light touch and pain Psych/Mental Status: Normal Affect, Appropriate Assessment & Plan Assessment/Plan (1) Clostridioides difficile infection: (2) BRENNAN (acute kidney injury): (3) Esophageal thickening: (4) Intractable nausea and vomiting: (5) Generalized weakness: PLAN: Plan 1. BRENNAN due to dehydration from gastroenteritis versus a C. difficile colitis ?Stool lactoferrin is positive but C. difficile and enteric panel are negative ?Can discontinue oral antibiotics and this could simply be a viral gastroenteritis, will watch for 24 hours to see if his white count returns and if his symptoms worsen ?CT scan with mild infectious colitis ?Can discontinue IV fluids as creatinine has resolved 2. Chronic systolic CHF/HTN/HLD/CAD status post CABG/history of nonsustained VT ? Given his IV fluids and his elevated creatinine we will hold his Lasix and losartan ? Can resume his Lipitor and Coreg ? Blood pressures are stable, will monitor make adjustments as necessary 3. DM2 ? He is on significant insulin, will decrease his dose ? Accu-Cheks ACHS ? Sliding scale insulin ? We will monitor and make adjustments as necessary 4. History of DVT/PE ? We will continue with his Xarelto 5. COPD ? Not in exacerbation ? Can resume his home inhalers DVT: Romie Charges/Coding Visit Charges Inpatient E&M: 81821 Subs Hosp L2
[2023-03-09 16:48] LABS: Bedside Glucose 488 mg/dL (74-106)
[2023-03-09 16:55] LABS: Glucose 439 mg/dL (74-106)
[2023-03-09] MEDS: Rivaroxaban 20 MG Tablet PO (18:08)
[2023-03-09] MEDS: hydrOXYzine PAM 25 MG Capsule 50 MG PO (21:12)
[2023-03-09] MEDS: Insulin Glargine-YFGN 100 UNIT/ML Pen 45 UNIT SC (21:13)
[2023-03-09] MEDS: Loratadine 10 MG Tablet PO (21:13)
[2023-03-09] MEDS: traZODone 50 MG Tablet PO (21:15)
[2023-03-09] MEDS: Atorvastatin Calcium 80 MG Tablet PO (21:16)
[2023-03-09 22:41] LABS: Bedside Glucose 336 mg/dL (74-106)
[2023-03-09] MEDS: Albuterol 2.5 MG/3 ML VIAL.NEB. INHALATION (23:16)
[2023-03-10 01:14] LABS: Bedside Glucose 281 mg/dL (74-106)
[2023-03-10] MEDS: Oxycodone/Apap 5/325 Tablet PO (02:16)
[2023-03-10] MEDS: MELATONIN 3 MG TABLET PO (02:16)
[2023-03-10 02:19] VITALS: BP 130/75; PULSE 81; RESP 18; TEMP 36.6; O2SAT 97
[2023-03-10 06:00] VITALS: BMI 28.0
[2023-03-10 06:10] LABS: Absolute Lymphocyte Count 2.25 X10^3/uL (0.83-4.51); Absolute Neutrophil Count 5.3 X10^3/uL (2.0-7.7); Basophil# 0.03 X10^3/uL; Basophil% 0.3 % (0-1); Eosinophils% 4.4 % (0-5); Hematocrit 39.8 % (40-54); Lymphocyte # 2.25 X10^3/ul (0.83-4.51); Lymphocyte % 24.9 % (19-41); Mean Corp Hgb Conc 32.7 g/dL (32-36); Mean Corpuscular Hgb 29.4 pg (27.0-32.0); Mean Platelet Vol. 10.7 fl (6.2-12.0); Monocyte# 1.05 X10^3/uL; Monocyte% 11.6 % (0-10); NRBC Flagged by Analyzer 0 % (0-5); Neutrophil # 5.27 X10^3/uL (2.7-7.7); Neutrophil % 58.2 % (47-70); Platelet Count 114 K/mm3 (150-450); RBC Distribution Width CV 14.3 % (11.6-14.6); RBC Distribution Width SD 46.7 fl (35.1-43.9); Red Blood Count 4.42 M/mm3 (4.6-6.2); White Blood Count 9.1 K/mm3 (4.4-11.0)
[2023-03-10 06:30] LABS: Anion Gap 5 (5-15); BUN 19 mg/dL (7-18); BUN/Creat Ratio 19.8 RATIO (10-20); Calcium,Total 8.7 mg/dL (8.5-10.1); Chloride 110 mmol/L (98-107); Creatinine, Serum 0.96 mg/dL (0.70-1.30); EST Glomerular Filtration Rate 83 mL/min (>60); Est Glom Filt Rate - Afr Amer 100 mL/min (>60); Estimated Creatinine Clearance 96.35 ml/min; Glucose 246 mg/dL (74-106); Potassium 4.1 mmol/L (3.5-5.1); Sodium Level 138 mmol/L (136-145)
[2023-03-10] MEDS: Insulin Lispro 100 UNIT/ML INSULN.PEN 15 UNIT SC (06:36)
[2023-03-10] MEDS: Insulin Lispro 100 UNIT/ML INSULN.PEN SC (06:36)
[2023-03-10 06:59] LABS: Bedside Glucose 263 mg/dL (74-106)
[2023-03-10] MEDS: Carvedilol 6.25 MG Tablet PO (08:23)
[2023-03-10] MEDS: Allopurinol 100 MG Tablet PO (08:24)
[2023-03-10] MEDS: Insulin Glargine-YFGN 100 UNIT/ML Pen 45 UNIT SC (09:34)
[2023-03-10 10:00] VITALS: BP 123/65; PULSE 73; RESP 18; TEMP 36.7; O2SAT 97
--- NOTE | 2023-03-10 10:09 | DCINST_ITS ---
Discharge Instructions Diet Discharge Diet: Carb Control Diet Activity Discharge Activity: Return to Normal Activity Dressing / Incision Call your doctor if you observe: Fever of 101 or Higher, Shortness of breath, Dizziness, Fainting spells, Swelling in the ankles, Chest pain and Increased palpitations (irregular heartbeat) Follow Up Care Test Results: Test results from this visit will be discussed in further detail at your follow- up appointment, if applicable. Discharge Plan Admission Admit Date/Time: 03/08/23 00:18 Attending Provider: German Bahena Primary Care Provider: Bulmaro Garcia Consulting Providers: Simón Montoya Instructions Additional Instructions / Restrictions: Obtain outpatient referral for GI for possible EGD and colonoscopy given the mild colitis seen on the CT scan Discharge Orders/Prescriptions Prescriptions: Continued hydroxyzine HCl 50 mg tablet 50 mg PO QHS losartan 50 mg tablet 50 mg PO DAILY Hold Instructions: Restart in 5 days atorvastatin 80 MG tablet 80 mg PO DAILY Patient Comments: LOWERS CHOLESTEROL nitroglycerin 0.4 MG tablet 0.4 mg sublingual Q5M PRN (Reason: Angina pain ) Qty: 25 0RF Patient Comments: chest pain trazodone 50 mg tablet 50 mg PO QHS albuterol sulfate 6.7 GM HFA aerosol inhaler 6.7 g IH Q4H PRN PRN (Reason: COPD) umeclidinium-vilanterol 1 EACH blister with device 1 puff PO DAILY Patient Comments: inhale 1 (ONE) puff BY MOUTH EVERY DAY oxycodone-acetaminophen 1 TABLET tablet 1 tablet PO Q4H PRN (Reason: Pain Score 1-10) Levocetirizine Dihydrochloride 5 mg PO QHS furosemide 40 MG tablet 40 mg PO DAILY Hold Instructions: Restart in 1 week Patient Comments: diuretic carvedilol 6.25 MG tablet 6.25 mg PO BID insulin glargine [Lantus Solostar U-100 Insulin] 100 unit/mL (3 mL) Insulin Pen 80 units subcut BID 30 Days Qty: 48 0RF insulin lispro [Humalog KwikPen Insulin] 100 unit/mL insulin pen 90 unit subcut TIDCM ondansetron 4 mg tablet,disintegrating 4 mg PO Q6H PRN (Reason: nausea and vomiting) Qty: 7 0RF ezetimibe 10 mg tablet 10 mg PO DAILY Xarelto 20 mg tablet 20 mg PO DAILY allopurinol 100 mg tablet 100 mg PO BID Patient Comments: TAKE 1 TABLET BY MOUTH TWICE DAILY Trulicity 0.75 mg/0.5 mL pen injector 0.75 mg subcut QWEEK Linzess 145 mcg capsule 145 mcg PO DAILY Referrals / Follow Up: Bulmaro Garcia MD [Primary Care Provider] - Within 1 Week Disposition Disposition (needs filled in before D/C Order can be placed): Home, Self Care
[2023-03-10 11:20] VITALS: BP 128/70; PULSE 70; RESP 18; TEMP 36.9; O2SAT 98
--- NOTE | 2023-03-10 13:31 | PCM.DC.SUM ---
Providers Date of Admission: 03/08/23 Primary Care Physician: Dr. 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 DIFFICILE COLITIS, ACUTE KIDNEY INJURY AND Diagnosis Discharge Diagnosis (1) Clostridioides difficile infection: Status: Acute Code(s): A49.8 - Other bacterial infections of unspecified site (2) BRENNAN (acute kidney injury): Status: Acute Code(s): N17.9 - Acute kidney failure, unspecified (3) Esophageal thickening: Status: Acute Code(s): K22.89 - Other specified disease of esophagus (4) Intractable nausea and vomiting: Status: Acute Code(s): R11.2 - Nausea with vomiting, unspecified (5) Generalized weakness: Status: Acute Code(s): R53.1 - Weakness Plan 1. BRENNAN due to dehydration from gastroenteritis versus a C. difficile colitis ?Stool lactoferrin is positive but C. difficile and enteric panel are negative ?Can discontinue oral antibiotics and this could simply be a viral gastroenteritis, will watch for 24 hours to see if his white count returns and if his symptoms worsen ?CT scan with mild infectious colitis ?Can discontinue IV fluids as creatinine has resolved 2. Chronic systolic CHF/HTN/HLD/CAD status post CABG/history of nonsustained VT ? Given his IV fluids and his elevated creatinine we will hold his Lasix and losartan ? Can resume his Lipitor and Coreg ? Blood pressures are stable, will monitor make adjustments as necessary 3. DM2 ? He is on significant insulin, will decrease his dose ? Accu-Cheks ACHS ? Sliding scale insulin ? We will monitor and make adjustments as necessary 4. History of DVT/PE ? We will continue with his Xarelto 5. COPD ? Not in exacerbation ? Can resume his home inhalers DVT: Xarelto Medications at Discharge Home Medications atorvastatin 80 mg tablet 80 mg PO DAILY cholesterol 10/05/13 nitroglycerin 0.4 mg sublingual tablet 0.4 mg sublingual Q5M PRN Angina pain #25 tabs 10/14/13 albuterol sulfate 90 mcg/actuation aerosol inhaler 6.7 g IH Q4H PRN PRN COPD 07/22/16 hydroxyzine HCl 50 mg tablet 50 mg PO QHS sleep 03/14/17 losartan 50 mg tablet 50 mg PO DAILY blood pressure 02/01/18 trazodone 50 mg tablet 50 mg PO QHS sleep 02/25/20 Levocetirizine Dihydrochloride 5 mg PO QHS sleep 05/31/20 carvedilol 6.25 mg tablet 6.25 mg PO BID blood pressure 05/31/20 furosemide 40 mg tablet 40 mg PO DAILY diuretic 05/31/20 oxycodone-acetaminophen 5 mg-325 mg tablet 1 tablet PO Q4H PRN Pain Score 1-10 05/31/20 umeclidinium 62.5 mcg-vilanterol 25 mcg/actuation powdr for inhalation 1 puff PO DAILY COPD 05/31/20 insulin glargine 100 unit/mL (3 mL) subcutaneous pen (Lantus Solostar U-100 Insulin) 80 units (0.8 mL) subcut BID Diabetes 30 days #48 mL 01/25/21 insulin lispro 100 unit/mL subcutaneous pen (Humalog KwikPen (U-100) Insulin) 90 unit subcut TIDCM diabetes 12/31/21 ezetimibe 10 mg tablet 10 mg PO DAILY Cholesterol 01/03/22 ondansetron 4 mg disintegrating tablet 4 mg PO Q6H PRN nausea and vomiting #7 tabs 01/03/22 rivaroxaban 20 mg tablet (Xarelto) 20 mg PO DAILY hx- DVT 01/03/22 allopurinol 100 mg tablet 100 mg PO BID GOUT 03/06/22 dulaglutide 0.75 mg/0.5 mL subcutaneous pen injector (Trulicity) 0.75 mg subcut QWEEK 03/07/23 linaclotide 145 mcg capsule (Linzess) 145 mcg PO DAILY 03/07/23 Hospital Course Operations None Procedures None Summary of Care Provided Minutes Spent on Discharge: 35 Hospital Course: Per HPI: PETE ORTIZ, is a 67 M With a past medical history of essential hypertension, hyperlipidemia, Diabetes mellitus type 2; of unknown control,overweight; with a BMI of 29.3 this admission, history of DVT/PE (); on Xarelto, CAD; s/p OR with CABG (1999) and stents (), history of ischemic cardiomyopathy; s/p AICD (2007 then replaced 2017), NSVT, history of tobacco abuse; with subsequent COPD, history of claudication, history of pseudogout of the Right knee with effusion, CKD; stage III, IBS; on Linzess, history of COVID-19, psoriasis, OA, history of recurrent Clostridium difficile colitis; with three different courses of oral vancomycin in the past year and recently diagnosed dental infection with patient reluctant to undergo tooth extraction causing him to take repeated courses of antibiotics who presents to [facility] ER complaining of nausea, vomiting, diarrhea and generalized weakness. Mr. Ortiz reports his symptoms began approximately 3 hours prior to arrival with the abrupt-onset of GI upset that began with nausea then followed by bilious emesis and non-bloody diarrhea. He took antibiotics from a family member since last week and he states this is very similar to his previous episodes of Clostridium difficile colitis with associated dehydration, malaise and body aches that basically make it impossible to care for himself at home and records indicate he made EMS carry him to the squad. This gentleman then informed his ER provider that he did not want to get his tooth fixed because, at his age health care is so expensive leaving the ER physician dumbfounded. He denies related fever, other acute illness or recent injury. In the ER he was diagnosed with a suspected flare of his Clostridium difficile colitis with leukocytosis of 18.2 present on admission complicated by BRENNAN; with serum creatinine of 1.94 mg/dL and BUN of 28 mg/dL present on admission (up from his baseline serum creatinine of 1.37 and BUN of 24 mg/dL during his last admission in early December 2022) with hypokalemia of 3.4 mmol/L and mild hypercalcemia of 11.1 mg/dL present on admission compounded by clinical evidence of generalized weakness with ambulatory dysfunction and he was then admitted to the general medical floor for ongoing care for a stay that is suspected to be greater than 48 hours. Hospital course: 1. BRENNAN due to dehydration from gastroenteritis?67-year-old male presented to the hospital with intractable nausea and vomiting a bit of abdominal pain. In CT scan of the abdomen and pelvis showed signs of a mild enteritis. He has had an extensive previous history of C. difficile infection so he was empirically started on p.o. vancomycin and IV Flagyl as his white count on admission was around 18,000 white count completely resolved yesterday and his antibiotics were discontinued because his C. difficile and enteric pathogen panel were both completely negative. Today his abdominal pain resolved and he was able to tolerate a regular diet, and 24 hours his white count did not elevate and he did not have a fever so I discussed with him the plan for possible discharge today he expressed understanding of the risk and benefits of going home and is okay with going home today. I discussed with him the need to follow-up with his PCP in 3 to 5 days and to obtain outpatient referral for colonoscopy and EGD. We also discussed indications as to why to return to the hospital. 2. Chronic systolic CHF, hypertension, hyperlipidemia, coronary artery disease status post CABG, history of nonsustained V. tach, type 2 diabetes, history of DVT/PE, COPD are all chronic medical conditions which complicate his care. His home medications were continued where appropriate Physical Exam Narrative General: Alert, Oriented x3, Cooperative, No apparent distress HEENT: Atraumatic, PERRLA, EOMI, Normocephalic Oral: Moist Mucosa Neck: Supple, No JVD Lungs: Diminished, Normal air movement, No rhonchi, No wheeze, No rales Cardiovascular: Regular rate, Regular Rhythm, Normal S1, Normal S2, No murmurs Abdomen: Soft, nontender, Non-Distended, No Hepato-splenomegaly Extremities: No edema, Capillary Refill Less than 3 Seconds Skin: No rashes, No breakdown Musculoskeletal: No Tenderness to Palpation of Joints or Extremities Neurological: No focal neurologic deficit, Motor Exam 5/5 strength throughout, Sensory exam intact to light touch and pain Psych/Mental Status: Normal Affect, Appropriate Weight / BMI Weight Weight: 229 lb 15.074 oz Body Mass Index (BMI) 28.0 ABG / Lab / Microbiology Data 03/10/23 05:34 03/10/23 05:34 Laboratory: Laboratory Results - last 24 hr 03/07/23 21:10: Diff Path Review Reviewed 03/08/23 07:14: Diff Path Review Reviewed 03/09/23 16:11: POC Glucose 488 H* 03/09/23 16:29: Glucose 439 H 03/09/23 21:11: POC Glucose 336 H 03/10/23 00:53: POC Glucose 281 H 03/10/23 05:34: WBC 9.1, RBC 4.42 L, Hgb 13.0, Hct 39.8 L, MCV 90.0, MCH 29.4, MCHC 32.7, RDW Std Deviation 46.7 H, RDW Coeff of Eula 14.3, Plt Count 114 L, MPV 10.7, Immature Gran % (Auto) 0.600, Neut % (Auto) 58.2, Lymph % (Auto) 24.9, [place] % (Auto) 11.6 H, Eos % (Auto) 4.4, Baso % (Auto) 0.3, Absolute Neuts (auto) 5.3, Absolute Lymphs (auto) 2.25, Nucleated RBC % 0, Sodium 138, Potassium 4.1, Chloride 110 H, Carbon Dioxide 23.0, Anion Gap 5, BUN 19 H, Creatinine 0.96, Estim Creat Clear Calc 96.35, Est GFR (MDRD) Af Amer 100, Est GFR (MDRD) Non-Af 83, BUN/Creatinine Ratio 19.8, Glucose 246 H, Calcium 8.7 03/10/23 06:35: POC Glucose 263 H Microbiology: Microbiology 03/08/23 08:09 Stool Stool Lactoferrin - Final 03/08/23 08:09 Stool Enteric Bacteriology - Final 03/08/23 08:09 Stool Clostridioides difficile (PCR) - Final 03/07/23 21:10 Mucosa - Nose SARS-CoV-2, Influenza & RSV (PCR) - Final D/C Instructions Discharge Diet: Carb Control Diet Call your doctor if you observe: Fever of 101 or Higher, Shortness of breath, Dizziness, Fainting spells, Swelling in the ankles, Chest pain and Increased palpitations (irregular heartbeat) Meaningful Use Info Meaningful Use Diagnoses (Choose all that apply): None applicable Discharge Plan Admission Admit Date/Time: 03/08/23 00:18 Attending Provider: German Bahena Primary Care Provider: Bulmaro Garcia Consulting Providers: Simón Montoya Instructions Additional Instructions / Restrictions: Obtain outpatient referral for GI for possible EGD and colonoscopy given the mild colitis seen on the CT scan Discharge Orders/Prescriptions Prescriptions: Continued hydroxyzine HCl 50 mg tablet 50 mg PO QHS losartan 50 mg tablet 50 mg PO DAILY Hold Instructions: Restart in 5 days atorvastatin 80 MG tablet 80 mg PO DAILY Patient Comments: LOWERS CHOLESTEROL nitroglycerin 0.4 MG tablet 0.4 mg sublingual Q5M PRN (Reason: Angina pain ) Qty: 25 0RF Patient Comments: chest pain trazodone 50 mg tablet 50 mg PO QHS albuterol sulfate 6.7 GM HFA aerosol inhaler 6.7 g IH Q4H PRN PRN (Reason: COPD) umeclidinium-vilanterol 1 EACH blister with device 1 puff PO DAILY Patient Comments: inhale 1 (ONE) puff BY MOUTH EVERY DAY oxycodone-acetaminophen 1 TABLET tablet 1 tablet PO Q4H PRN (Reason: Pain Score 1-10) Levocetirizine Dihydrochloride 5 mg PO QHS furosemide 40 MG tablet 40 mg PO DAILY Hold Instructions: Restart in 1 week Patient Comments: diuretic carvedilol 6.25 MG tablet 6.25 mg PO BID insulin glargine [Lantus Solostar U-100 Insulin] 100 unit/mL (3 mL) Insulin Pen 80 units subcut BID 30 Days Qty: 48 0RF insulin lispro [Humalog KwikPen Insulin] 100 unit/mL insulin pen 90 unit subcut TIDCM ondansetron 4 mg tablet,disintegrating 4 mg PO Q6H PRN (Reason: nausea and vomiting) Qty: 7 0RF ezetimibe 10 mg tablet 10 mg PO DAILY Xarelto 20 mg tablet 20 mg PO DAILY allopurinol 100 mg tablet 100 mg PO BID Patient Comments: TAKE 1 TABLET BY MOUTH TWICE DAILY Trulicity 0.75 mg/0.5 mL pen injector 0.75 mg subcut QWEEK Linzess 145 mcg capsule 145 mcg PO DAILY Referrals / Follow Up: Bulmaro Garcia MD [Primary Care Provider] - Within 1 Week Disposition Disposition (needs filled in before D/C Order can be placed): Home, Self Care Charges/Coding Visit Charges Inpatient E&M: 56487 Disch Hosp >30min
== END 2023-03-10 11:35 | disposition home or self-care (01) | DRG 683 ==
LOC: ED 21:47 → MS3 23:53
PROVIDERS: Admitting Provider Internal Medicine; Emergency Provider Student in an Organized Health Care Education/Training Program; PCP Family Medicine; Visit Provider Family Medicine
DX: N17.9 Acute kidney failure, unspecified (principal); A09 Infectious gastroenteritis and colitis, unspecified; I13.0 Hypertensive heart and chronic kidney disease with heart failure and stage 1 through stage 4 chronic kidney disease, or unspecified chronic kidney disease; I50.22 Chronic systolic (congestive) heart failure; E11.638 Type 2 diabetes mellitus with other oral complications; E11.22 Type 2 diabetes mellitus with diabetic chronic kidney disease; D64.9 Anemia, unspecified; J44.9 Chronic obstructive pulmonary disease, unspecified; N18.30 Chronic kidney disease, stage 3 unspecified; E11.51 Type 2 diabetes mellitus with diabetic peripheral angiopathy without gangrene; Z79.4 Long term (current) use of insulin; E86.0 Dehydration; E78.5 Hyperlipidemia, unspecified; I25.10 Atherosclerotic heart disease of native coronary artery without angina pectoris; K29.70 Gastritis, unspecified, without bleeding; E83.52 Hypercalcemia; L40.9 Psoriasis, unspecified; E87.6 Hypokalemia; M19.90 Unspecified osteoarthritis, unspecified site; I25.5 Ischemic cardiomyopathy; K58.0 Irritable bowel syndrome with diarrhea; K44.9 Diaphragmatic hernia without obstruction or gangrene; K22.89 Other specified disease of esophagus; Z87.891 Personal history of nicotine dependence; Z86.16 Personal history of COVID-19; Z95.5 Presence of coronary angioplasty implant and graft; Z79.01 Long term (current) use of anticoagulants; R53.1 Weakness; E66.3 Overweight; Z86.718 Personal history of other venous thrombosis and embolism; Z86.711 Personal history of pulmonary embolism; Z68.27 Body mass index [BMI] 27.0-27.9, adult; Z79.899 Other long term (current) drug therapy
CPT/HCPCS: 36415; 74177; 80048; 80053; 81001; 82947; 82962; 83630; 83690; 83735; 83970; 84100; 84443; 85025; 87177; 87209; 87493; 87506; 87631; 94640; 99284; 99406; J7030; Q9967; A4216

== ENCOUNTER → 2023-07-02 | Outpatient (CLI) | payer MEDICARE, SELFPAY ==
--- NOTE | 2023-07-02 13:28 | CT_ITS ---
HISTORY: STRICTURE OF ARTERY. TECHNIQUE: Axial CT angiography multi-detector data acquisition was obtained from the abdomen and pelvis to the bilateral lower extremities following intravenous administration of 100 mL Isovue-370. Axial images and MIP images were reconstructed from the axial data set. Post-processing of the angiographic images was performed, with multiplanar reformation and 3D reconstruction. Individualized dose optimization techniques were used for this CT. 913 images. COMPARISON: 06/02/2020. Descriptors of Narrowing: None (0%) Mild (< 50%) Moderate (50-70%) Severe (70-90%) Subtotal/Total Occlusion (90-100%) Non-Evaluable (technically non-diagnostic) FINDINGS: LOWER CHEST: Pacemaker noted. Calcified granulomas in the lung bases. BOWEL: Chronic mild distal esophageal wall thickening. Bowel including appendix nondilated. No pericolonic inflammation. PERITONEUM: No significant ascites. LIVER: No enhancing mass. GALLBLADDER: Cholecystectomy. SPLEEN: Calcified granulomas. PANCREAS: Homogeneous with mild atrophy. KIDNEYS/ADRENAL GLANDS: Unremarkable. PELVIC ORGANS: Enlarged prostate gland with calcifications. OSSEOUS STRUCTURES: L5 spondylolysis with grade 1 spondylolisthesis. ABDOMINAL AORTA: Mild atherosclerosis. No aneurysm or dissection flap. CELIAC AXIS: Chronic moderate stenosis of the origin. SUPERIOR MESENTERIC ARTERY: Chronic mild stenosis. INFERIOR MESENTERIC ARTERY: Atherosclerosis at the origin. No occlusion. RIGHT RENAL ARTERY: Mild narrowing. LEFT RENAL ARTERY: Mild narrowing. RIGHT ILIAC ARTERIES: Mild stenosis with calcified plaque in the common iliac artery. Up to 50% stenosis with calcified plaque at the origins of the external/internal iliac arteries. LEFT ILIAC ARTERIES: Mild stenosis with calcified plaque in the common iliac artery. Moderate at least 60% stenoses of the external/internal iliac arteries. RIGHT LOWER EXTREMITY-chronic sclerosis of the distal femur. Old united fracture of the fifth metatarsal base. Lateral and plantar ulceration with surrounding soft tissue edema and adjacent heterogeneous sclerosis of the proximal fifth metatarsal. Degenerative change. RIGHT COMMON FEMORAL ARTERY: 60-70% stenosis with calcified and noncalcified plaque. RIGHT PROFUNDUS FEMORIS ARTERY: Mild stenosis. RIGHT SUPERFICIAL FEMORAL ARTERY: Calcified plaque with 60-70% stenoses. RIGHT POPLITEAL ARTERY: Calcified plaque with less than 50% stenosis. RIGHT THREE-VESSEL RUNOFF: Mild calcified plaque in the tibioperoneal trunk. Patent anterior tibial artery to the ankle, then again occluded. Mild calcified plaque in the patent posterior tibial and peroneal arteries followed past the ankle into the foot. LEFT LOWER EXTREMITY-Ulceration and air in the soft tissues of the first toe with erosion of the first metatarsal head, proximal phalanx, and distal phalanx with air in the distal phalanx. Suspect mild joint effusion with synovial enhancement of the first metatarsophalangeal joint. LEFT COMMON FEMORAL ARTERY: Calcified plaque with severe greater than 75% stenosis distally. LEFT PROFUNDUS FEMORIS ARTERY: Mild calcified plaque. LEFT SUPERFICIAL FEMORAL ARTERY: Moderate and severe stenoses throughout its course. LEFT POPLITEAL ARTERY: Mild stenosis. LEFT THREE-VESSEL RUNOFF: Patent tibioperoneal trunk. Mild stenoses of the anterior tibial artery with flow past the ankle into the foot. Patent posterior tibial artery with flow past the ankle into the foot. Mild calcified plaque of the patent peroneal artery. CT/CTA Abd w/Runoff W/WO Contrast IMPRESSION: Peripheral vascular disease as above. Chronic occlusion of the distal right anterior tibial artery. Chronic ununited fracture of the right fifth metatarsal base. Ulceration and soft tissue swelling in the right foot with adjacent sclerosis of the proximal fifth metatarsal, possible sequela of osteomyelitis. Patent left three-vessel runoff. Emphysematous/gangrenous osteomyelitis of the left first toe with ulceration, air, and cellulitis of the surrounding soft tissues. Osteomyelitis of the left first metatarsal head with possible septic arthritis at the metatarsophalangeal joint. Electronically Signed: Yaneth Hi MD at 13:42 EDT ,
--- NOTE | 2023-07-02 13:31 | ART_ITS ---
Reason For Study: PVD Procedure A bilateral lower extremity continuous wave Doppler with analog waveform analysis and ankle brachial indexes. Left Segmental Pressures Left brachial= 113mmHg. Left posterior tibial artery = 79mmHg. Left dorsalis pedis artery = 48mmHg. Right Segmental Pressures Right brachial= 106mmHg. Right posterior tibial artery = >254mmHg. Right dorsalis pedis artery = >254mmHg. Right digit = 51 mmHg. Indices The right ankle brachial index by the posterior tibial artery is NC. The right ankle brachial index by the dorsalis pedis is NC. The right digital-brachial index is 0.45. The left ankle brachial index by the posterior tibial artery is 0.70. The left ankle brachial index by the dorsalis pedis is 0.42. VL/Ankle Brachial Index Interpretation Summary Moderate occlusive disease with bilateral monophasic and right noncompressible and left 0.7. Ordering Physician: Eloy Peacock Referring Physician: Bulmaro Garcia Performed By: Blaire Carreno RDCS/RVT
[2023-07-02 14:11] LABS: CREATININE FINGERSTICK < 1.0 mg/dL (0.70-1.30); EGFR FINGERSTICK > 60.0000 mL/min (>60)
== END | disposition home or self-care (01) ==
LOC: CT 13:17
PROVIDERS: PCP Family Medicine; Referring Provider Surgery Vascular Surgery; Visit Provider Surgery Vascular Surgery
DX: I70.213 Atherosclerosis of native arteries of extremities with intermittent claudication, bilateral legs (principal); E11.59 Type 2 diabetes mellitus with other circulatory complications; I77.1 Stricture of artery; I70.0 Atherosclerosis of aorta; E78.70 Disorder of bile acid and cholesterol metabolism, unspecified; I51.9 Heart disease, unspecified; F17.200 Nicotine dependence, unspecified, uncomplicated
CPT/HCPCS: 75635; 93922; Q9967

== ENCOUNTER → 2023-07-04 | Outpatient (CLI) | payer MEDICARE, SELFPAY ==
[2023-07-04 15:13] LABS: Absolute Lymphocyte Count 1.98 X10^3/uL (0.83-4.51); Absolute Neutrophil Count 8.9 X10^3/uL (2.0-7.7); Basophil# 0.06 X10^3/uL; Basophil% 0.5 % (0-1); Eosinophils% 0.8 % (0-5); Hematocrit 42.4 % (40-54); Hemoglobin 13.1 g/dL (13.0-16.5); Lymphocyte # 1.98 X10^3/ul (0.83-4.51); Mean Corp Hgb Conc 30.9 g/dL (32-36); Mean Corpuscular Volume 87.4 fL (80-94); Mean Platelet Vol. 10.5 fl (6.2-12.0); Monocyte# 1.25 X10^3/uL; Monocyte% 10.1 % (0-10); NRBC Flagged by Analyzer 0 % (0-5); Neutrophil # 8.93 X10^3/uL (2.7-7.7); Neutrophil % 72.3 % (47-70); Platelet Count 273 K/mm3 (150-450); RBC Distribution Width CV 15.6 % (11.6-14.6); RBC Distribution Width SD 49.6 fl (35.1-43.9); Red Blood Count 4.85 M/mm3 (4.6-6.2); White Blood Count 12.4 K/mm3 (4.4-11.0)
[2023-07-04 15:38] LABS: Erythrocyte Sedimentation Rate 20 mm/hr (0-20)
== END | disposition home or self-care (01) ==
PROVIDERS: PCP Family Medicine; Referring Provider Family Medicine; Visit Provider Family Medicine
DX: M79.671 Pain in right foot (principal)
CPT/HCPCS: 36415; 85025; 85652; 86140

== ENCOUNTER → 2023-07-18 | Outpatient (CLI) | payer MEDICARE, SELFPAY ==
--- NOTE | 2023-07-18 18:16 | STRESSREP ---
Stress Test Report Date: 07/18/2023 Procedure: Pharmacologic stress nuclear imaging study Indications: Preoperative evaluation Consent: Per the patient Procedure: The patient underwent pharmacologic (Regadenoson) evaluation with a peak heart rate of 87 beats per minute (58%predicted maximal heart rate) and a peak blood pressure of 122/68 mmHg. The baseline ECG demonstrated normal sinus rhythm, nonspecific ST-T changes. EKG during lexiscan infusion revealed no significant ischemic changes. EKG post infusion revealed no significant ischemic changes [There were no cardiac dysrhythmias pretest, during pharmacologic infusion, or recovery]. [There was no complaint of chest discomfort during pharmacologic infusion or recovery]. The examination was discontinued secondary to completion of protocol. Impression: 1. Lexiscan stress test test is negative for Lexiscan infusion induced EKG changes of ischemia. 2. Lexiscan stress test test is negative for Lexiscan infusion induced chest pain. 3. Results of the nuclear portion of the test is as below Myocardial perfusion imaging study: Technique: The patient was injected with 14.3 millicuries of technetium 99m Cardiolite and subsequently rest SPECT Cardiolite nuclear imaging was obtained in the horizontal long, vertical long, and short axis views. The patient underwent pharmacologic [Regadenoson 0.4mg] evaluation. Please see above for details. The patient was injected with 44.2 millicuries of technetium 99m Cardiolite and subsequently stress SPECT Cardiolite nuclear imaging was obtained in the horizontal long, vertical long, and short axis views. A gated Cardiolite study at peak stress was obtained. Interpretation: Rest and stress SPECT Cardiolite nuclear imaging status post realignment, normalization, and attenuation correction demonstrate fixed defect involving the inferior wall, lateral wall and apex. No significant reversibility. These findings are suggestive of prior infarction involving the inferior wall, lateral wall and apex. No evidence of significant ischemia. Gated images reveal global hypokinesis. The reported LVEF is 40%. Impression: 1. There is no evidence of significant ischemia. Prior myocardial infarction as described. 2. Estimated ejection fraction is 40%. This note was generated with SnapLayoutation software. It may contain incorrect words, spelling, and punctuation that were not noted in checking the note before signing.
== END | disposition home or self-care (01) ==
LOC: CVS 06:24
PROVIDERS: PCP Family Medicine; Referring Provider Physician Assistant Medical; Visit Provider Physician Assistant Medical
DX: Z95.5 Presence of coronary angioplasty implant and graft (principal); I25.5 Ischemic cardiomyopathy; E78.5 Hyperlipidemia, unspecified
CPT/HCPCS: 78452; 93017; A9500; A4216; J2785

== ENCOUNTER → 2024-02-01 | Outpatient (CLI) | payer MEDICARE, SELFPAY ==
[2024-02-01 15:12] LABS: Hematocrit 51.7 % (40-54); Hemoglobin 15.3 g/dL (13.0-16.5); Mean Corp Hgb Conc 29.6 g/dL (32-36); Mean Corpuscular Hgb 23.9 pg (27.0-32.0); Mean Corpuscular Volume 80.8 fL (80-94); Mean Platelet Vol. 11.5 fl (6.2-12.0); Platelet Count 196 K/mm3 (150-450); RBC Distribution Width CV 18.1 % (11.6-14.6); RBC Distribution Width SD 49.1 fl (35.1-43.9); White Blood Count 8.7 K/mm3 (4.4-11.0)
[2024-02-01 15:32] LABS: ALB/GLOB Ratio 0.9 RATIO (0.9-2.4); AST(SGOT) 22 U/L (15-37); Alanine Aminotransfer ALT/SGPT 29 U/L (16-61); Albumin, Serum 3.7 g/dL (3.2-5.0); Alkaline Phosphatase 112 U/L (45-117); Anion Gap 7 (5-15); BUN 24 mg/dL (7-18); Calcium,Total 9.7 mg/dL (8.5-10.1); Chloride 101 mmol/L (98-107); Creatinine, Serum 1.33 mg/dL (0.70-1.30); EST Glomerular Filtration Rate 56 mL/min (>60); Est Glom Filt Rate - Afr Amer 68 mL/min (>60); Globulin 4.1 g/dL (2.2-4.2); Glucose 227 mg/dL (74-106); Potassium 4.6 mmol/L (3.5-5.1); Protein, Total 7.8 g/dL (6.4-8.2); Sodium Level 135 mmol/L (136-145)
[2024-02-01 16:14] LABS: Hemoglobin A1c 10.7 % (3.8-5.6)
== END | disposition home or self-care (01) ==
LOC: MFPLAB 12:10
PROVIDERS: PCP Family Medicine; Referring Provider Family Medicine; Visit Provider Family Medicine
DX: L40.50 Arthropathic psoriasis, unspecified (principal)
CPT/HCPCS: 36415; 80053; 83036; 85027

== ENCOUNTER → 2024-03-31 | Outpatient (CLI) | payer MEDICARE, MEDICAID, SELFPAY ==
--- NOTE | 2024-03-31 08:45 | AAVD_ITS ---
Reason For Study Reason For Study: S/P Sx Circulatory System Aorta Measurements Aorta Doppler Measurements Proximal aorta measures2.19x2.36cm. in cross-sectional axis.Peak systolic flow velocities within the proximal aorta Proximal aorta measures2.15cm. in longitudinal axis. measure 74.8 cm/sec. Mid aorta measures1.69x1.55cm. in cross-sectional axis. Peak systolic flow velocities within the mid aorta measure Mid aorta measures1.76cm. in longitudinal axis. 89.3 cm/sec. Distal aorta measures1.56x1.65cm. in cross-sectional axis. Peak systolic flow velocities within the distal aorta Distal aorta measures1.70cm. in longitudinal axis. measure 78.4 cm/sec. Left Iliac Artery Left iliac artery measures 1.11x1.11 cm. in the cross-sectional axis. Left iliac artery measures 1.14 cm. in the longitudinal axis. Peak systolic velocity in the left iliac artery measures 82.0 cm/sec. Right Iliac Artery Right iliac artery measures 0.99x1.11 cm. in the cross-sectional axis. Right iliac artery measures 1.08 cm. in the longitudinal axis. Peak systolic velocity in the right iliac artery measures 85.7 cm/sec. Procedure Aorta IVC Iliac vasculature or bypass grafts 23222. Heterogeneous plaque noted in the mid to distal aorta. Limited views obtained. Exam performed in department. VL/Abd Aortic/IVC Duplex scan Interpretation Summary Aortoiliac no aneurysm and no stenosis seen. Ordering Physician: Eloy Peacock Referring Physician: Eloy Peacock Performed By: Jose Louis RVT and Student
--- NOTE | 2024-03-31 08:45 | ART_ITS ---
Reason For Study Reason For Study: S/P Sx Circulatory System Procedure A bilateral lower extremity continuous wave Doppler with analog waveform analysis and ankle brachial indexes. Left Segmental Pressures Left brachial= 120mmHg. Left posterior tibial artery = 129mmHg. Left dorsalis pedis artery = 100mmHg. The left dorsalis pedis waveforms are biphasic. The left posterior tibial artery waveforms are biphasic. Right Segmental Pressures Right brachial= 121mmHg. Right posterior tibial artery = 96mmHg. Right dorsalis pedis artery = 76mmHg. Right digit = 43 mmHg. The right dorsalis pedis waveforms are monophasic. The right posterior tibial artery waveforms are monophasic. Indices The right ankle brachial index by the dorsalis pedis is 0.63. The right ankle brachial index by the posterior tibial artery is 0.79. The right digital-brachial index is 0.36. The left ankle brachial index by the dorsalis pedis is 0.83. The left ankle brachial index by the posterior tibial artery is 1.07. VL/Ankle Brachial Index Interpretation Summary The right resting ankle-brachial index appears mildly abnormal. Left OTTO _, nor mal. Ordering Physician: Zelalem Orlando Referring Physician: ZELALEM ORLANDO DR. Performed By: Jose Louis RVT and Student
== END | disposition home or self-care (01) ==
LOC: CVS 08:40
PROVIDERS: PCP Family Medicine; Referring Provider Surgery Vascular Surgery; Visit Provider Surgery Vascular Surgery
DX: Z48.812 Encounter for surgical aftercare following surgery on the circulatory system (principal); E11.59 Type 2 diabetes mellitus with other circulatory complications; I70.213 Atherosclerosis of native arteries of extremities with intermittent claudication, bilateral legs; I70.0 Atherosclerosis of aorta; I10 Essential (primary) hypertension; F17.200 Nicotine dependence, unspecified, uncomplicated
CPT/HCPCS: 93922; 93978

== ENCOUNTER → 2024-05-08 | Outpatient (CLI) | payer MEDICARE, MEDICAID, SELFPAY ==
[2024-05-08 17:52] LABS: Absolute Lymphocyte Count 2.44 X10^3/uL (0.83-4.51); Basophil# 0.06 X10^3/uL; Basophil% 0.8 % (0-1); Eosinophil# 0.18 X10^3/uL; Eosinophils% 2.4 % (0-5); Hematocrit 46.2 % (40-54); Lymphocyte # 2.44 X10^3/ul (0.83-4.51); Mean Corp Hgb Conc 32.5 g/dL (32-36); Mean Corpuscular Hgb 27.5 pg (27.0-32.0); Mean Corpuscular Volume 84.8 fL (80-94); Mean Platelet Vol. 10.8 fl (6.2-12.0); Monocyte# 0.94 X10^3/uL; Monocyte% 12.3 % (0-10); NRBC Flagged by Analyzer 0 % (0-5); Neutrophil # 3.98 X10^3/uL (2.7-7.7); Neutrophil % 52.2 % (47-70); Platelet Count 161 K/mm3 (150-450); RBC Distribution Width CV 19.1 % (11.6-14.6); RBC Distribution Width SD 56.7 fl (35.1-43.9); Red Blood Count 5.45 M/mm3 (4.6-6.2); White Blood Count 7.6 K/mm3 (4.4-11.0)
[2024-05-08 18:18] LABS: ALB/GLOB Ratio 1.2 RATIO (0.9-2.4); AST(SGOT) 19 U/L (<=37); Alanine Aminotransfer ALT/SGPT 11 U/L (<=46); Albumin, Serum 4.2 g/dL (3.4-4.8); Alkaline Phosphatase 99 U/L (40-129); Anion Gap 13 (5-15); BUN 22 mg/dL (4-19); Calcium,Total 9.6 mg/dL (7.6-11.0); Carbon Dioxide 26.7 mmol/L (21.0-32.0); Chloride 97 mmol/L (98-108); Creatinine, Serum 1.12 mg/dL (0.70-1.20); EST Glomerular Filtration Rate 71 (>60); Globulin 3.6 g/dL (2.2-4.2); Glucose 194 mg/dL (70-99); Potassium 4.1 mmol/L (3.3-5.1); Protein, Total 7.8 g/dL (5.9-8.4); Sodium Level 137 mmol/L (133-145); Total Bilirubin 0.67 mg/dL (0.00-1.30)
[2024-05-08 19:16] LABS: Microalbumin,Random Urine < 12.0 mg/L (NO RANGE EST.)
[2024-05-08 20:35] LABS: Hemoglobin A1c 10.1 % (<=5.6)
[2024-05-08 20:36] LABS: Microalbumin:Creatinine Ratio UNABLE TO CALCULATE mg/g CRE
== END | disposition home or self-care (01) ==
PROVIDERS: PCP Family Medicine; Referring Provider Family Medicine; Visit Provider Family Medicine
DX: E11.9 Type 2 diabetes mellitus without complications (principal); Z86.39 Personal history of other endocrine, nutritional and metabolic disease
CPT/HCPCS: 36415; 80053; 82043; 82570; 83036; 85025

== ENCOUNTER 2024-06-14 11:08 | Inpatient (IN) | payer MEDICARE, MEDICAID, SELFPAY ==
[2024-06-14] VITALS (13 sets, daily range): BP systolic 130–153; BP diastolic 71–83; PULSE 72–87; RESP 16–20; TEMP 36.5–36.8; O2SAT 94–98; BMI 31.1; BMI 30.2
--- NOTE | 2024-06-14 11:19 | RAD_ITS ---
EXAM: XR Chest, 2 Views CLINICAL INDICATION: SOB TECHNIQUE: Frontal and lateral views of the chest. COMPARISON: No relevant prior studies available. FINDINGS: LUNGS AND PLEURAL SPACES: Unremarkable. No consolidation. No pneumothorax. HEART: Unremarkable. No cardiomegaly. MEDIASTINUM: Unremarkable. Normal mediastinal contour. BONES/JOINTS: Unremarkable. No acute fracture. TUBES, LINES AND DEVICES: Left-sided cardiac pacemaker. RAD/Chest PA and Lateral IMPRESSION: No acute cardiopulmonary process. Reading Location: [id number]
--- NOTE | 2024-06-14 11:24 | EX.ED.DYSGE1 ---
HPI History of Present Illness Chief Complaint: Shortness of Breath Narrative Narrative: Patient is a 68-year-old male with past medical history of type 2 diabetes, hypertension, CAD with stents, DVT on Xarelto, hyperlipidemia who presents to the emergency department chief complaint shortness of breath. Patient states that the last 3 to 4 days he has had worsening shortness of breath prompting him to come here for further evaluation management. Patient states that especially when he walks around he feels like he is getting more short of breath. Patient states that he has been compliant with his Xarelto not missing doses. Patient denies any sick contacts denies any sputum production. Patient states that if he does try to lie down he feels that he is having difficulty breathing. [facility] Medical History Abnormal lead impedance of implantable cardioverter-defibrillator Clostridioides difficile infection Hyperglycemia due to type 2 diabetes mellitus Acute kidney injury Gout of right knee Pseudogout of right knee Effusion, right knee Right knee pain Constipation Claudication Essential (primary) hypertension History of non-ST elevation myocardial infarction (NSTEMI) (10/11/13) NSVT (nonsustained ventricular tachycardia) Obesity Secondary pulmonary arterial hypertension Pulmonary embolism (09/2013) COPD (chronic obstructive pulmonary disease) Chronic kidney disease Type 2 diabetes mellitus Old inferior wall myocardial infarction (02/27/05) DVT (deep venous thrombosis) IBS (irritable bowel syndrome) Ischemic cardiomyopathy Atherosclerosis of [place] coronary artery of [place] heart without angina pectoris Hyperlipidemia Home Medications ?Medication ?Instructions ?Recorded ?Last Taken ?Type atorvastatin 80 mg tablet 80 mg PO DAILY cholesterol 10/05/13 06/13/24 History nitroglycerin 0.4 mg sublingual 0.4 mg sublingual Q5M PRN Angina 10/14/13 Unknown Rx tablet pain #25 tabs albuterol sulfate 90 mcg/actuation 6.7 g inhalation Q4H PRN COPD 07/22/16 12/02/22 History aerosol inhaler hydroxyzine HCl 50 mg tablet 50 mg PO QHS sleep 03/14/17 06/13/24 History losartan 50 mg tablet 50 mg PO DAILY blood pressure 02/01/18 06/14/24 History trazodone 50 mg tablet 50 mg PO QHS sleep 02/25/20 06/13/24 History carvedilol 6.25 mg tablet 6.25 mg PO BID blood pressure 05/31/20 06/14/24 History furosemide 40 mg tablet 40 mg PO DAILY diuretic 05/31/20 06/14/24 History umeclidinium 62.5 mcg-vilanterol 1 puff PO DAILY COPD 05/31/20 06/14/24 History 25 mcg/actuation powdr for inhalation insulin glargine 100 unit/mL (3 80 units subcut BID Diabetes 30 01/25/21 06/14/24 Rx mL) subcutaneous pen (Lantus days #48 mL Solostar U-100 Insulin) insulin lispro 100 unit/mL 90 unit subcut TIDCM diabetes 12/31/21 06/14/24 History subcutaneous pen (Humalog KwikPen (U-100) Insulin) ezetimibe 10 mg tablet 10 mg PO DAILY Cholesterol 01/03/22 06/14/24 History rivaroxaban 20 mg tablet (Xarelto) 20 mg PO DAILY hx- DVT 01/03/22 06/14/24 History allopurinol 100 mg tablet 100 mg PO BID GOUT 03/06/22 06/14/24 History linaclotide 145 mcg capsule 145 mcg PO DAILY 03/07/23 06/14/24 History (Linzess) dapagliflozin propanediol 5 mg 5 mg PO DAILY 07/13/23 06/14/24 History tablet (Farxiga) levocetirizine 5 mg tablet 5 mg PO DAILY itch 06/14/24 06/14/24 History Allergy/AdvReac Type Severity Reaction Status Date / Time No Known Allergies Allergy Verified 04/04/24 14:48 Family History Father CAD (coronary artery disease) Diabetes Brother CAD (coronary artery disease) Diabetes Mother Cancer Leukemia Brother Diabetes Surgical History Amputated toe of left foot History of cholecystectomy History of implantable cardiac defibrillator (ICD) (02/07/18) History of left heart catheterization (10/13/13) History of coronary artery stent placement (02/27/05) H/O coronary artery bypass surgery (04/18/99) Hx of cataract extraction Social History household members: none housing: house Smoking Status: Former smoker pack-years: 39 second hand exposure: No alcohol intake: former substance use type: does not use caffeine: Yes (1/day) what type of physical activity do you participate in: none ROS ROS ED ROS Narrative Constitutional: Denies any fevers, chills, headaches, lightness, dizziness Eyes: No change in vision double vision blurry vision Cardiovascular: Denies chest pain or palpitation Respiratory: Complains of shortness of breath as noted above Abdomen: Denies abdominal pain nausea vomit diarrhea : Denies urinary Neurological: Denies numbness, weakness, ting Musculoskeletal: Denies back Skin: Denies rashes or lesions EXAM Physical Exam Narrative Exam Narrative: General: Patient lying in bed rest comfortably did not appear to be acute distress Head: Atraumatic, normocephalic Eyes: PERRL bilaterally, EOMI bilateral, no conjunctival injection noted Neck: Soft, supple, trachea midline Cardiovascular: Regular in rhythm no murmurs gallops rubs noted Respiratory: Clear to auscultation bilaterally no rhonchi rales or wheezing noted Abdomen: Soft, nondistended, tender to palpation Extremities: Radial pulse +2/4 in the bilateral extremities, +5/5 strength noted in the bilateral upper and lower extremities Neurological: Patient follow commands knew that he was at [facility] year is 2024 Skin: Warm, dry, tact no rashes or lesions Const Vital Signs: 06/14/24 11:09 06/14/24 11:13 06/14/24 11:27 Temperature 98.1 F Temperature Source Temporal Pulse Rate 86 Respiratory Rate 20 H Respiratory Effort Short of Breath Respiratory Depth Shallow Respiratory Pattern Normal Blood Pressure 153/83 H Blood Pressure Mean 106 Pulse Ox 98 97 Oxygen Delivery Method Room Air Room Air Room Air 06/14/24 11:55 06/14/24 12:55 06/14/24 13:00 Temperature 97.7 F L 97.8 F 97.8 F Temperature Source Oral Oral Oral Pulse Rate 77 78 75 Respiratory Rate 20 H 18 18 Respiratory Effort Respiratory Depth Respiratory Pattern Blood Pressure 138/78 H 137/71 H 137/71 H Blood Pressure Mean 98 93 93 Pulse Ox 94 95 95 Oxygen Delivery Method Room Air Room Air Room Air 06/14/24 14:00 06/14/24 14:46 Temperature 97.8 F 97.8 F Temperature Source Oral Pulse Rate 72 72 Respiratory Rate 18 18 Respiratory Effort Respiratory Depth Respiratory Pattern Blood Pressure 131/72 H 131/72 H Blood Pressure Mean 91 91 Pulse Ox 96 96 Oxygen Delivery Method Room Air [facility] MDM Narrative Medical decision making narrative: Patient is a 68-year-old male who presented to the emergency department chief complaint of dyspnea on exertion. On the differential diagnose includes but not limited to ACS, pneumonia, PE although feel this less likely as he is chronically anticoagulated on Xarelto, pneumothorax, CHF. Once workup is obtained reviewed he will be reevaluated. Patient be given 1 L of fluid as there is concern for hypervolemic state therefore 30 cc/kg bolus of IV fluids not indicated. Patient CBC was reviewed and showed no evidence leukocytosis white blood count normal 9.3, hemoglobin 15.5, platelet count was noted be 151. Patient INR normal 1.2, PT of 15.2. Patient sodium normal 140, potassium normal 4.6, creatinine normal at 0.98. Patient's AST and ALT are 18 and 9 respectively. Patient troponin was noted be 26 with a delta troponin obtained noted to be 23. Patient's EKG was reviewed and showed sinus rhythm with PVCs noted with a rate of 80 bpm this was compared to previous EKG from March 06, 2022 and is largely unchanged. Patient's chest x-ray reviewed by myself by radiology which showed no acute cardiopulmonary processes. At this point in time do believe the patient will warrant admission as his last echocardiogram showed an ejection fraction of 40% he is on Lasix at home already and having worsening dyspnea on exertion with elevated proBNP to 1581 here in the emergency department. Patient was also very unsteady and weak on his feet will discuss case with hospitalist for admission. Patient given 40 mg IV Lasix. Discussed case with hospitalist Dr. Blanca who accept the patient for admission. Patient was agreeable this plan all question concerns answered at bedside. Lab Data Labs: Laboratory Results - last 24 hr 06/14/24 06/14/24 06/14/24 11:15 11:53 13:43 WBC 9.3 RBC 5.63 Hgb 15.5 Hct 48.4 MCV 86.0 MCH 27.5 MCHC 32.0 RDW Std Deviation 53.1 H RDW Coeff of [place] 17.1 H Plt Count 151 MPV 11.0 Immature Gran % (Auto) 0.500 Neut % (Auto) 62.0 Lymph % (Auto) 23.6 [place] % (Auto) 10.7 H Eos % (Auto) 2.3 Baso % (Auto) 0.9 Absolute Neuts (auto) 5.8 Absolute Lymphs (auto) 2.19 Nucleated RBC % 0 PT 15.2 H INR 1.2 APTT 35.5 Sodium 140 Potassium 4.6 Chloride 101 Carbon Dioxide 28.2 Anion Gap 11 BUN 12 Creatinine 0.98 Estim Creat Clear Calc 96.33 Est GFR (MDRD) Non-Af 83 BUN/Creatinine Ratio 12.6 Glucose 149 H Lactic Acid 1.5 Calcium 9.6 Total Bilirubin 0.67 AST 18 ALT 9 Alkaline Phosphatase 110 Troponin T High Sens 26 H Troponin T Hi Sens 2 Hr 23 H NT pro BNP II 1581 H Total Protein 7.6 Albumin 4.2 Globulin 3.4 Albumin/Globulin Ratio 1.2 Urine Color Yellow Urine Clarity Clear Urine pH 6.0 Ur Specific [place] 1.020 Urine Protein 30 H Urine Glucose (UA) Normal Urine Ketones Negative Urine Occult Blood 10 H Urine Nitrite Negative Urine Bilirubin Negative Urine Urobilinogen Normal Ur Leukocyte Esterase Negative Urine RBC 0 SEEN Urine WBC 0 SEEN Ur Squamous Epith Cells 0 SEEN Urine Bacteria 0 SEEN Urine Mucus 0 SEEN Radiography Diagnostic Testing: Clinical Impression(s) from Imaging Studies Chest X-Ray 06/14/24 11:19 IMPRESSION: No acute cardiopulmonary process. Reading Location: [facility] Discharge Plan Triage Chief Complaint: Shortness of Breath ED Provider: Giacomo Hathaway Dx/Rx/DC Orders Clinical Impression: Generalized weakness, CHF exacerbation Prescriptions: No Action hydroxyzine HCl 50 mg tablet 50 mg PO QHS losartan 50 mg tablet 50 mg PO DAILY dapagliflozin propanediol [Farxiga] 5 mg tablet 5 mg PO DAILY atorvastatin 80 MG tablet 80 mg PO DAILY nitroglycerin 0.4 MG tablet 0.4 mg sublingual Q5M PRN (Reason: Angina pain ) Qty: 25 0RF trazodone 50 mg tablet 50 mg PO QHS albuterol sulfate 6.7 GM HFA aerosol inhaler 6.7 g inhalation Q4H PRN (Reason: COPD) umeclidinium-vilanterol 1 EACH blister with device 1 puff PO DAILY furosemide 40 MG tablet 40 mg PO DAILY carvedilol 6.25 MG tablet 6.25 mg PO BID insulin glargine [Lantus Solostar U-100 Insulin] 100 unit/mL (3 mL) Insulin Pen 80 units subcut BID 30 Days Qty: 48 0RF insulin lispro [Humalog KwikPen Insulin] 100 unit/mL insulin pen 90 unit subcut TIDCM ezetimibe 10 mg tablet 10 mg PO DAILY Xarelto 20 mg tablet 20 mg PO DAILY allopurinol 100 mg tablet 100 mg PO BID Linzess 145 mcg capsule 145 mcg PO DAILY levocetirizine 5 mg tablet 5 mg PO DAILY Primary Care Provider: Bulmaro Garcai Referrals: Bulmaro Garcia MD [Primary Care Provider] - Print Language: Moroccan Disposition Disposition: Acute Care Hospital [facility]
[2024-06-14 11:32] LABS: Absolute Lymphocyte Count 2.19 X10^3/uL (0.83-4.51); Absolute Neutrophil Count 5.8 X10^3/uL (2.0-7.7); Basophil# 0.08 X10^3/uL; Basophil% 0.9 % (0-1); Eosinophil# 0.21 X10^3/uL; Eosinophils% 2.3 % (0-5); Hematocrit 48.4 % (40-54); Hemoglobin 15.5 g/dL (13.0-16.5); Lymphocyte # 2.19 X10^3/ul (0.83-4.51); Lymphocyte % 23.6 % (19-41); Mean Corpuscular Hgb 27.5 pg (27.0-32.0); Monocyte# 0.99 X10^3/uL; Monocyte% 10.7 % (0-10); NRBC Flagged by Analyzer 0 % (0-5); Neutrophil # 5.75 X10^3/uL (2.7-7.7); Platelet Count 151 K/mm3 (150-450); RBC Distribution Width CV 17.1 % (11.6-14.6); RBC Distribution Width SD 53.1 fl (35.1-43.9); Red Blood Count 5.63 M/mm3 (4.6-6.2); White Blood Count 9.3 K/mm3 (4.4-11.0)
[2024-06-14] MEDS: 0.9% Normal Saline (1000mL) 1,000 ML 999 ML IV (11:33)
[2024-06-14] MEDS: predniSONE 20 MG Tablet 60 MG PO (11:33)
[2024-06-14 11:41] LABS: International Normalized Ratio 1.2; Prothrombin Time (Protime)PT. 15.2 SECONDS (11.7-14.9)
[2024-06-14 11:42] LABS: Partial Thromboplast Time 35.5 Seconds (24.1-36.2)
[2024-06-14 11:58] LABS: Bacteria 0 SEEN /hpf (None Seen); Mucous, Urine 0 SEEN /hpf (<or=2+); Red Blood Cells-Urine 0 SEEN /hpf (0-5); Squamous Epithelial Cells - UA 0 SEEN /hpf (0-5); White Blood Cells 0 SEEN /hpf (0-5)
[2024-06-14 12:02] LABS: Lactic Acid 1.5 mmol/L (0.0-2.0)
[2024-06-14 12:04] LABS: ALB/GLOB Ratio 1.2 RATIO (0.9-2.4); AST(SGOT) 18 U/L (<=37); Alanine Aminotransfer ALT/SGPT 9 U/L (<=46); Albumin, Serum 4.2 g/dL (3.4-4.8); Alkaline Phosphatase 110 U/L (40-129); Anion Gap 11 (5-15); BUN 12 mg/dL (4-19); BUN/Creat Ratio 12.6 RATIO (10-20); Calcium,Total 9.6 mg/dL (7.6-11.0); Carbon Dioxide 28.2 mmol/L (21.0-32.0); Chloride 101 mmol/L (98-108); Creatinine, Serum 0.98 mg/dL (0.70-1.20); EST Glomerular Filtration Rate 83 (>60); Estimated Creatinine Clearance 96.33 ml/min (50-250); Globulin 3.4 g/dL (2.2-4.2); Glucose 149 mg/dL (70-99); Potassium 4.6 mmol/L (3.3-5.1); Pro- Brain NATRIURETIC PEPTIDE 1581 pg/mL (<=900); Protein, Total 7.6 g/dL (5.9-8.4); Sodium Level 140 mmol/L (133-145); Total Bilirubin 0.67 mg/dL (0.00-1.30); Troponin T High Sensitivity 26 ng/L (<=22)
[2024-06-14 12:09] LABS: Color, Urine Yellow (Yellow); Glucose, Dipstick Normal (Normal); Ketone-Dipstick Negative (Negative); Leukocyte Esterase-Dipstick Negative /ul (Negative); Nitrite-Dipstick Negative (Negative); Occult Blood-Urine 10 /ul (Negative); Protein-Dipstick 30 mg/dl (Negative); Urine Bilirubin Dipstick Negative (Negative); Urine Clarity Clear (Clear); Urine Urobilinogen Normal (Normal)
[2024-06-14] MEDS: Furosemide 40 MG/4 ML Vial IV (13:17)
[2024-06-14 14:12] LABS: Troponin T High Sens 2 HR 23 ng/L (<=22)
--- NOTE | 2024-06-14 15:25 | PCM.HP.STD ---
HPI - General General Date of Admission: 06/14/24 Date of Service: 06/14/24 Chief Complaint: Shortness of breath HPI Narrative PETE ORTIZ, is a Patient is a 68-year-old male history of DVT on Xarelto, COPD, gout, coronary artery disease with stenting and bypass, hypertension, diabetes who presented to [facility] ED 06/14/2024 with chief complaint of shortness of breath that has worsened over the past 3 to 4 days prompting him to come to the ED for further management. His shortness of breath is worsened with exertion and when he tries to lie down. In the ED patient afebrile, heart rate 86 with a blood pressure 153/83, respiratory rate 20 with a pulse ox of 98% on room air. CBC and CMP fairly benign, chest x-ray with no acute process however troponin 26 which down trended to 23 and patient with a proBNP of 1581. Patient's last echocardiogram demonstrated 40% EF and patient already on home Lasix, patient unsteady and weak so given all the above hospitalist contacted for admission. Patient evaluated at bedside. Pt reports that for the past 3 to 4 days he has had significant shortness of breath on exertion but especially lying flat and has been unable to sleep as he feels like he cannot breathe, has been sleeping in his recliner for about a week. Also feels very fatigued and had sweats a couple nights ago. Reports that over the past 4 days every now and he will get 30 seconds where he has a slight pressure in the left side of his chest but denies any exacerbating or relieving factors, not presently having this. Also denies any weight gain/change or leg swelling [facility] Medical History Abnormal lead impedance of implantable cardioverter-defibrillator Clostridioides difficile infection Hyperglycemia due to type 2 diabetes mellitus Acute kidney injury Gout of right knee Pseudogout of right knee Effusion, right knee Right knee pain Constipation Claudication Essential (primary) hypertension History of non-ST elevation myocardial infarction (NSTEMI) (10/11/13) NSVT (nonsustained ventricular tachycardia) Obesity Secondary pulmonary arterial hypertension Pulmonary embolism (09/2013) COPD (chronic obstructive pulmonary disease) Chronic kidney disease Type 2 diabetes mellitus Old inferior wall myocardial infarction (02/27/05) DVT (deep venous thrombosis) IBS (irritable bowel syndrome) Ischemic cardiomyopathy Atherosclerosis of [place] coronary artery of [place] heart without angina pectoris Hyperlipidemia Home Medications ?Medication ?Instructions ?Recorded ?Last Taken ?Type atorvastatin 80 mg tablet 80 mg PO DAILY cholesterol 10/05/13 06/13/24 History nitroglycerin 0.4 mg sublingual 0.4 mg sublingual Q5M PRN Angina 10/14/13 Unknown Rx tablet pain #25 tabs albuterol sulfate 90 mcg/actuation 6.7 g inhalation Q4H PRN COPD 07/22/16 12/02/22 History aerosol inhaler hydroxyzine HCl 50 mg tablet 50 mg PO QHS sleep 03/14/17 06/13/24 History losartan 50 mg tablet 50 mg PO DAILY blood pressure 02/01/18 06/14/24 History trazodone 50 mg tablet 50 mg PO QHS sleep 02/25/20 06/13/24 History carvedilol 6.25 mg tablet 6.25 mg PO BID blood pressure 05/31/20 06/14/24 History furosemide 40 mg tablet 40 mg PO DAILY diuretic 05/31/20 06/14/24 History umeclidinium 62.5 mcg-vilanterol 1 puff PO DAILY COPD 05/31/20 06/14/24 History 25 mcg/actuation powdr for inhalation insulin glargine 100 unit/mL (3 80 units subcut BID Diabetes 30 01/25/21 06/14/24 Rx mL) subcutaneous pen (Lantus days #48 mL Solostar U-100 Insulin) insulin lispro 100 unit/mL 90 unit subcut TIDCM diabetes 12/31/21 06/14/24 History subcutaneous pen (Humalog KwikPen (U-100) Insulin) ezetimibe 10 mg tablet 10 mg PO DAILY Cholesterol 01/03/22 06/14/24 History rivaroxaban 20 mg tablet (Xarelto) 20 mg PO DAILY hx- DVT 01/03/22 06/14/24 History allopurinol 100 mg tablet 100 mg PO BID GOUT 03/06/22 06/14/24 History linaclotide 145 mcg capsule 145 mcg PO DAILY 03/07/23 06/14/24 History (Linzess) dapagliflozin propanediol 5 mg 5 mg PO DAILY 07/13/23 06/14/24 History tablet (Farxiga) levocetirizine 5 mg tablet 5 mg PO DAILY itch 06/14/24 06/14/24 History Allergy/AdvReac Type Severity Reaction Status Date / Time No Known Allergies Allergy Verified 04/04/24 14:48 Family History Father CAD (coronary artery disease) Diabetes Brother CAD (coronary artery disease) Diabetes Mother Cancer Leukemia Brother Diabetes Surgical History Amputated toe of left foot History of cholecystectomy History of implantable cardiac defibrillator (ICD) (02/07/18) History of left heart catheterization (10/13/13) History of coronary artery stent placement (02/27/05) H/O coronary artery bypass surgery (04/18/99) Hx of cataract extraction Social History household members: none housing: house Smoking Status: Former smoker pack-years: 39 second hand exposure: No alcohol intake: former substance use type: does not use caffeine: Yes (1/day) what type of physical activity do you participate in: none ROS ROS Narrative General: Denies fever/chills HENT: Denies headache, denies stuffy nose, denies sore throat EYES: Denies changes in vision Resp: Denies cough, does have shortness of breath especially on exertion lying flat Cardiac: Had about 30 seconds of a left-sided pressure-like sensation a couple of times over the past 4 days with no exacerbating or relieving factors, not happening at present GI: Denies abdominal pain, does report some constipation, denies nausea/vomiting : Denies changes in urination Extremity: Denies swelling MSK: Feels generally weak and fatigued Neuro: Denies any numbness/tingling Heme: Denies any bleeding or bruising Skin: Denies rashes Psychiatric: No complaints voiced Vital Signs Vital Signs Vital Signs: 06/14/24 11:09 06/14/24 11:13 06/14/24 11:27 Temperature 98.1 F Temperature Source Temporal Pulse Rate 86 Respiratory Rate 20 H Respiratory Effort Short of Breath Respiratory Depth Shallow Respiratory Pattern Normal Blood Pressure 153/83 H Blood Pressure Mean 106 Pulse Ox 98 97 Oxygen Delivery Method Room Air Room Air Room Air 06/14/24 11:55 06/14/24 12:55 06/14/24 13:00 Temperature 97.7 F L 97.8 F 97.8 F Temperature Source Oral Oral Oral Pulse Rate 77 78 75 Respiratory Rate 20 H 18 18 Respiratory Effort Respiratory Depth Respiratory Pattern Blood Pressure 138/78 H 137/71 H 137/71 H Blood Pressure Mean 98 93 93 Pulse Ox 94 95 95 Oxygen Delivery Method Room Air Room Air Room Air 06/14/24 14:00 06/14/24 14:46 06/14/24 15:00 Temperature 97.8 F 97.8 F 98 F Temperature Source Oral Oral Pulse Rate 72 72 78 Respiratory Rate 18 18 16 Respiratory Effort Respiratory Depth Respiratory Pattern Blood Pressure 131/72 H 131/72 H 130/72 H Blood Pressure Mean 91 91 91 Pulse Ox 96 96 98 Oxygen Delivery Method Room Air Room Air Weight Weight: 116 kg Body Mass Index (BMI) 31.1 Physical Exam Narrative General: Alert, oriented, no apparent distress HEENT: Atraumatic, normocephalic Eyes: Anicteric, normal conjunctiva, extraocular movements grossly intact Neck: Supple Respiratory: Increased respiratory effort, does have crackles at the bases Cardiovascular: Regular rate and rhythm GI: Soft, nontender, slightly protuberant with no rebound, guarding, rigidity Extremities: No edema Musculoskeletal: Moving all extremities Neuro: No overt focal neurological deficits Skin: No rashes appreciated Psych: Cooperative Results Lab / Micro Data 06/14/24 11:15 06/14/24 11:15 Labs: Laboratory Results - last 24 hr 06/14/24 11:15: WBC 9.3, RBC 5.63, Hgb 15.5, Hct 48.4, MCV 86.0, MCH 27.5, MCHC 32.0, RDW Std Deviation 53.1 H, RDW Coeff of [place]ula 17.1 H, Plt Count 151, MPV 11.0, Immature Gran % (Auto) 0.500, Neut % (Auto) 62.0, Lymph % (Auto) 23.6, [place] % (Auto) 10.7 H, Eos % (Auto) 2.3, Baso % (Auto) 0.9, Absolute Neuts (auto) 5.8, Absolute Lymphs (auto) 2.19, Nucleated RBC % 0, PT 15.2 H, INR 1.2, APTT 35.5, Sodium 140, Potassium 4.6, Chloride 101, Carbon Dioxide 28.2, Anion Gap 11, BUN 12, Creatinine 0.98, Estim Creat Clear Calc 96.33, Est GFR (MDRD) Non-Af 83, BUN/Creatinine Ratio 12.6, Glucose 149 H, Lactic Acid 1.5, Calcium 9.6, Total Bilirubin 0.67, AST 18, ALT 9, Alkaline Phosphatase 110, Troponin T High Sens 26 H, NT pro BNP II 1581 H, Total Protein 7.6, Albumin 4.2, Globulin 3.4, Albumin/Globulin Ratio 1.2 06/14/24 11:53: Urine Color Yellow, Urine Clarity Clear, Urine pH 6.0, Ur Specific [place] 1.020, Urine Protein 30 H, Urine Glucose (UA) Normal, Urine Ketones Negative, Urine Occult Blood 10 H, Urine Nitrite Negative, Urine Bilirubin Negative, Urine Urobilinogen Normal, Ur Leukocyte Esterase Negative, Urine RBC 0 SEEN, Urine WBC 0 SEEN, Ur Squamous Epith Cells 0 SEEN, Urine Bacteria 0 SEEN, Urine Mucus 0 SEEN 06/14/24 13:43: Troponin T Hi Sens 2 Hr 23 H Micro: Microbiology 06/14/24 11:24 Mucosa - Nose SARS-CoV-2, Influenza & RSV (PCR) - Final Imaging Radiology Impression Chest X-Ray 06/14/24 11:19 IMPRESSION: No acute cardiopulmonary process. Reading Location: [facility] Assessment & Plan Assessment/Plan (1) Fluid overload: PLAN: Plan #Acute exacerbation of chronic ischemic cardiomyopathy -Admit to telemetry -proBNP 1581 -CXR did not read out any acute process the patient does have some crackles at the bases on auscultation and has dyspnea on exertion as well as orthopnea -Continue IV lasix -Last echo with EF of 40% with mild-moderate global hypokinesis of the left ventricle, PASP of 34 -Repeat echo ordered -Daily weights, I's and O's -Fluid restriction, heart healthy diet - Does follow with cardiology on an outpatient basis # Elevated troponin -Suspect secondary to patient's fluid overload state -Initial troponin of 26 and subsequently down trended to 23 #Type 2 diabetes mellitus -Glucose checks and sliding scale insulin - Patient's med list says 80 twice daily for his long-acting insulin however on external Rx shows multiple insulin regimens, clarified with patient he reports he takes 30 to 40 units of long-acting insulin with each meal and snacks as well as 30-40 of NovoLog with each meal and snacks, confirmed multiple times that he takes both long-acting and NovoLog this way and he confirmed. External Rx does support this so we will adjust his regimen here but will start him low-end with 30 of Levemir as patient may eat differently than he does at home and continue sliding scale # Hypercholesterolemia - Continue statin and Zetia # History of CAD -With history of stenting and CABG -Continue home medications atorvastatin, beta-edenilson, Xarelto # History of DVT -Patient on Xarelto, reports compliance #Hypertension - Continue patient on losartan and beta-edenilson #Hx PAD - Patient reports left lower extremity intervention, follows with Dr. Peacock - Continue home statin Xarelto #Hx AICD/Pacer - Patient reports he has a pacemaker defibrillator, presently following with electrophysiology as he may need leads replaced or adjustments, discussed had an echo next month for further determination of management #Hx COPD -Continue home inhalers -Incentive spirometer #Gout -Continue home allopurinol #DVT ppx: Not indicated, patient already on full dose anticoagulation with Xarelto Gloria Blanca MD Charges/Coding Visit Charges Inpatient E&M: 52691 Init Hosp L2
[2024-06-14 15:53] LABS: Troponin T High Sens 4 HR 17 ng/L (<=22)
--- NOTE | 2024-06-14 16:12 | ECHOCS_ITS ---
Reason For Study Reason For Study: Dyspnea/SOB Procedure This was a 2D Doppler, Color Flow transthoracic echocardiogram. The study was technically difficult. Contrast injection was performed. Exam performed portable in patient room. Left Ventricle Normal LV size. The estimated ejection fraction is 45 %. Inferolateral and basal septal hypokinesis. Right Ventricle Normal RV size. ICD or pacer leads identified within the right ventricle. Normal systolic function. Atria The left and right atria are normal. ICD or pacer leads identified within the right atrium. No doppler evidence for ASD. Mitral Valve There is no mitral valve stenosis. Mild (1+) mitral valve insufficiency. Tricuspid Valve There is no tricuspid stenosis. Mild tricuspid valve insufficiency. Pulmonary artery systolic pressure is 45 mmHg. Aortic Valve Aortic sclerosis, no stenosis. There is no aortic stenosis. Mild (1+) aortic valve insufficiency. Pulmonic Valve There is no pulmonic valvular stenosis. No pulmonic valve insufficiency. Great Vessels Normal sized aortic root. Pericardium/Pleural No pericardial effusion. Medication Diluted definity 3ml given slow IV push to enhance endocardial definition. MMode/2D Measurements & Calculations LVIDd: 5.8 cm IVSd: 1.2 cm LVOT diam: 2.0 cm LVIDs: 5.1 cm LVPWd: 1.1 cm RVDd: 4.3 cm FS: 12.7 % LVOT area: 3.2 cm2 Ao root diam: 3.1 cm LAV(MOD-bp): 75.6 ml LVAd ap4: 41.5 cm2 LAV(MOD-bp) Indexed: 31.1 ml/m2 LVLd ap4: 9.5 cm LAV(MOD-sp2): 71.8 ml EDV(MOD-sp4): 148.0 ml LAV(MOD-sp4): 76.0 ml EDV(sp4-el): 153.2 ml LVAs ap4: 29.6 cm2 LVLs ap4: 9.0 cm ESV(MOD-sp4): 86.4 ml ESV(sp4-el): 82.1 ml EF(MOD-sp4): 41.6 % EF(sp4-el): 46.4 % SV(MOD-sp4): 61.6 ml SV(sp4-el): 71.0 ml LA A4 area: 22.7 cm2 SI(MOD-sp4): 25.3 ml/m2 LA dimension(2D): 4.6 cm RA A4 area: 22.1 cm2 TAPSE: 1.2 cm Time Measurements MV dec time: 0.18 sec Doppler Measurements & Calculations MV E max luigi: 94.8 cm/sec Lat Peak E' Luigi: 8.8 cm/sec Med Peak E' Luigi: 5.9 cm/sec MV A max luigi: 91.7 cm/sec E/E' lat: 10.7 E/E' med: 16.0 MV E/A: 1.0 MV V2 max: 131.1 cm/sec MV P1/2t max luigi: 132.3 cm/sec Ao V2 max: 196.6 cm/sec MV max P.9 mmHg MV P1/2t: 73.8 msec Ao max P.5 mmHg MV V2 mean: 73.4 cm/sec MV dec slope: 525.3 cm/sec2 Ao V2 mean: 118.9 cm/sec MV mean P.6 mmHg MVA(P1/2t): 3.0 cm2 Ao mean P.8 mmHg MV V2 VTI: 33.1 cm Ao V2 VTI: 36.6 cm MVA(VTI): 1.9 cm2 AV (velocity ratio): 0.53 SARAY(I,D): 1.7 cm2 SARAY(V,D): 1.6 cm2 AI max luigi: 368.9 cm/sec LV V1 max: 97.3 cm/sec MR max luigi: 495.2 cm/sec AI max P.6 mmHg LV V1 max P.8 mmHg MR max P.1 mmHg LV V1 mean P.2 mmHg MR mean luigi: 354.4 cm/sec AI dec slope: 354.8 cm/sec2 LV V1 mean: 70.2 cm/sec MR mean P.0 mmHg AI P1/2t: 304.5 msec LV V1 VTI: 19.5 cm MR VTI: 169.0 cm SV(LVOT): 61.9 ml PA V2 max: 112.5 cm/sec TR max luigi: 309.3 cm/sec TR max P.3 mmHg ECHO/Echo Complete W/ Contrast Interpretation Summary The estimated ejection fraction is 45 %. Inferolateral and basal septal hypokinesis Mild (1+) mitral valve insufficiency. Mild (1+) aortic valve insufficiency. Ordering Physician: Gloria Blanca Performed By: Florentino Martinez RCS
[2024-06-14] MEDS: Insulin Glargine-YFGN 100 UNIT/ML Pen 30 UNIT SC (16:47)
[2024-06-14] MEDS: Carvedilol 6.25 MG Tablet PO (16:48)
[2024-06-14] MEDS: Insulin Lispro 100 UNIT/ML INSULN.PEN SC ×2 (16:54→21:09)
[2024-06-14 17:07] LABS: Bedside Glucose 172 mg/dL (74-106)
[2024-06-14] MEDS: Ipratropium/Albuterol Sulfate 3 ML AMPUL.NEB INHALATION (19:47)
[2024-06-14] MEDS: MELATONIN 3 MG TABLET 10 MG PO (21:08)
[2024-06-14] MEDS: traZODone 50 MG Tablet PO (21:08)
[2024-06-14] MEDS: Senna/Docusate Sodium 1 Tablet 2 TABLET PO (21:08)
[2024-06-14] MEDS: Allopurinol 100 MG Tablet PO (21:08)
[2024-06-14] MEDS: oxyCODONE 5 MG Tablet PO (22:05)
[2024-06-14 22:44] LABS: Bedside Glucose 276 mg/dL (74-106)
[2024-06-15] VITALS (8 sets, daily range): BP systolic 112–124; BP diastolic 46–64; PULSE 71–88; RESP 14–20; TEMP 36.6–37.2; O2SAT 93–97; BMI 30.4
[2024-06-15 05:08] LABS: Absolute Lymphocyte Count 0.95 X10^3/uL (0.83-4.51); Absolute Neutrophil Count 7.6 X10^3/uL (2.0-7.7); Basophil# 0.01 X10^3/uL; Basophil% 0.1 % (0-1); Lymphocyte # 0.95 X10^3/ul (0.83-4.51); Lymphocyte % 10.4 % (19-41); Mean Corp Hgb Conc 32.5 g/dL (32-36); Mean Corpuscular Hgb 27.4 pg (27.0-32.0); Mean Corpuscular Volume 84.2 fL (80-94); Mean Platelet Vol. 11.4 fl (6.2-12.0); Monocyte# 0.57 X10^3/uL; Monocyte% 6.2 % (0-10); NRBC Flagged by Analyzer 0 % (0-5); Neutrophil # 7.56 X10^3/uL (2.7-7.7); Neutrophil % 82.8 % (47-70); Platelet Count 132 K/mm3 (150-450); RBC Distribution Width CV 16.1 % (11.6-14.6); RBC Distribution Width SD 49.7 fl (35.1-43.9); Red Blood Count 4.75 M/mm3 (4.6-6.2); White Blood Count 9.1 K/mm3 (4.4-11.0)
[2024-06-15 05:39] LABS: Anion Gap 11 (5-15); BUN 20 mg/dL (4-19); BUN/Creat Ratio 19.9 RATIO (10-20); Calcium,Total 8.8 mg/dL (7.6-11.0); Carbon Dioxide 24.1 mmol/L (21.0-32.0); Chloride 101 mmol/L (98-108); Creatinine, Serum 1.02 mg/dL (0.70-1.20); EST Glomerular Filtration Rate 79 (>60); Estimated Creatinine Clearance 92.99 ml/min (50-250); Glucose 245 mg/dL (70-99); Potassium 4.4 mmol/L (3.3-5.1); Sodium Level 136 mmol/L (133-145)
[2024-06-15] MEDS: Insulin Lispro 100 UNIT/ML INSULN.PEN SC ×2 (06:34→11:25)
[2024-06-15] MEDS: Insulin Glargine-YFGN 100 UNIT/ML Pen 30 UNIT SC (06:34)
[2024-06-15 06:56] LABS: Bedside Glucose 281 mg/dL (74-106)
[2024-06-15] MEDS: Ipratropium/Albuterol Sulfate 3 ML AMPUL.NEB INHALATION ×3 (06:57→19:42)
--- NOTE | 2024-06-15 07:36 | PCM.PN.HOSP ---
Reason for Visit Reason for Visit: Shortness of breath Subjective Subjective Patient states orthopnea and lower extremity edema is improved significantly. Endorses that he is feeling about 50% better since admission. No acute needs at this time. Objective Data Objective Data Vital Signs: Vital Signs Temp Pulse Resp BP Pulse Ox O2 Del Method 97.9 F 88 18 121/64 H 95 Room Air 06/15/24 03:30 06/15/24 06:57 06/15/24 06:57 06/15/24 03:30 06/15/24 06:57 06/15/24 06:57 Oxygen Delivery Method Room Air Weight: 113.7 kg Body Mass Index (BMI) 30.4 Intake & Output: Intake and Output for Last 24 Hours 06/13/24 06/14/24 06/15/24 23:59 23:59 23:59 Intake Total 1440 / 1440 240 / 240 Balance 1440 / 1440 240 / 240 Lab / Micro Data 06/15/24 04:52 06/15/24 04:52 Labs: Laboratory Results - last 24 hr 06/14/24 11:15: WBC 9.3, RBC 5.63, Hgb 15.5, Hct 48.4, MCV 86.0, MCH 27.5, MCHC 32.0, RDW Std Deviation 53.1 H, RDW Coeff of [place] 17.1 H, Plt Count 151, MPV 11.0, Immature Gran % (Auto) 0.500, Neut % (Auto) 62.0, Lymph % (Auto) 23.6, [place] % (Auto) 10.7 H, Eos % (Auto) 2.3, Baso % (Auto) 0.9, Absolute Neuts (auto) 5.8, Absolute Lymphs (auto) 2.19, Nucleated RBC % 0, PT 15.2 H, INR 1.2, APTT 35.5, Sodium 140, Potassium 4.6, Chloride 101, Carbon Dioxide 28.2, Anion Gap 11, BUN 12, Creatinine 0.98, Estim Creat Clear Calc 96.33, Est GFR (MDRD) Non-Af 83, BUN/Creatinine Ratio 12.6, Glucose 149 H, Lactic Acid 1.5, Calcium 9.6, Total Bilirubin 0.67, AST 18, ALT 9, Alkaline Phosphatase 110, Troponin T High Sens 26 H, NT pro BNP II 1581 H, Total Protein 7.6, Albumin 4.2, Globulin 3.4, Albumin/Globulin Ratio 1.2 06/14/24 11:53: Urine Color Yellow, Urine Clarity Clear, Urine pH 6.0, Ur Specific [place] 1.020, Urine Protein 30 H, Urine Glucose (UA) Normal, Urine Ketones Negative, Urine Occult Blood 10 H, Urine Nitrite Negative, Urine Bilirubin Negative, Urine Urobilinogen Normal, Ur Leukocyte Esterase Negative, Urine RBC 0 SEEN, Urine WBC 0 SEEN, Ur Squamous Epith Cells 0 SEEN, Urine Bacteria 0 SEEN, Urine Mucus 0 SEEN 06/14/24 13:43: Troponin T Hi Sens 2 Hr 23 H 06/14/24 15:30: Troponin T Hi Sens 4Hr 17 06/14/24 16:46: POC Glucose 172 H 06/14/24 20:59: POC Glucose 276 H 06/15/24 04:52: WBC 9.1, RBC 4.75, Hgb 13.0, Hct 40.0, MCV 84.2, MCH 27.4, MCHC 32.5, RDW Std Deviation 49.7 H, RDW Coeff of [place] 16.1 H, Plt Count 132 L, MPV 11.4, Immature Gran % (Auto) 0.500, Neut % (Auto) 82.8 H, Lymph % (Auto) 10.4 L, [place] % (Auto) 6.2, Eos % (Auto) 0.0, Baso % (Auto) 0.1, Absolute Neuts (auto) 7.6, Absolute Lymphs (auto) 0.95, Nucleated RBC % 0, Sodium 136, Potassium 4.4, Chloride 101, Carbon Dioxide 24.1, Anion Gap 11, BUN 20 H, Creatinine 1.02, Estim Creat Clear Calc 92.99, Est GFR (MDRD) Non-Af 79, BUN/Creatinine Ratio 19.9, Glucose 245 H, Calcium 8.8 06/15/24 06:33: POC Glucose 281 H Micro: Microbiology 06/14/24 11:24 Mucosa - Nose SARS-CoV-2, Influenza & RSV (PCR) - Final Radiography Diagnostic Testing: Radiology Impression Chest X-Ray 06/14/24 11:19 IMPRESSION: No acute cardiopulmonary process. Reading Location: [facility] Physical Exam Const alert, oriented x3, no apparent distress and well nourished; Negative for average body habitus or healthy appearing Constitutional Narrative: Obese, older, white male, sitting up in bed eating lunch and watching television, appears comfortable, does not look toxic, breathing well on room air. HEENT head/scalp atraumatic and moist oral mucous membranes HEENT Narrative: Mallampati 3, no thrush Resp normal respiratory effort, no retractions, no use of accessory muscles and No clear to auscultation bilaterally Resp Narrative: Diminished at bases bilaterally with few scattered crackles Auscultation: crackles; Negative for rhonchi or wheezes Cardio regular rate, regular rhythm, S1 normal heart sound, S2 normal heart sound, no murmurs, no rub, no gallops and no clicks GI normal to inspection, nondistended, normoactive bowel sounds, soft to palpation and non-tender Extremity Extremity Narrative: Trace bilateral lower extremity pitting edema around ankles, no cyanosis or clubbing Neuro moves all extremities and no focal motor deficits Speech: speech normal Psych affect normal Psych Narrative: Extremely pleasant, interacts appropriately, cooperative Assessment & Plan Assessment/Plan (1) Generalized weakness: (2) Shortness of breath: (3) Orthopnea: (4) Elevated brain natriuretic peptide (BNP) level: (5) Elevated troponin: (6) Acute on chronic heart failure with reduced ejection fraction (HFrEF, <= 40%): PLAN: Plan Shortness of breath and orthopnea secondary to acute on chronic HFrEF - Previous echocardiogram shows an EF of 40% with mild to moderate global hypokinesis of the LV and of right ventricular systolic pressure of 34 mmHg - Repeat echocardiogram is pending and will likely be done tomorrow - Responding well to diuresis--> continue Lasix as ordered - Continue daily weights - Continue strict I's and O's - Continue fluid restricted diet - Add sodium restriction to diet - Check ambulatory pulse ox tomorrow and if clinically improved may be able to discharge depending on echo findings Troponin elevation - Secondary to demand ischemia with acute on chronic HFrEF - Echocardiogram is pending but no further workup at this time - Initial troponin was 23 with a repeat at 17 DM-2 - Has been verified for 80 units twice daily for basal insulin and 90 units 3 times daily's with meals for bolus insulin - Blood sugars are elevated so will increase basal insulin to 60 units twice daily and give 30 units 3 times daily of Humalog -Reevaluate tomorrow and may need to increase to home doses - Continue SSI - Check Accu-Cheks as ordered - Cardiac/carb controlled diet - Hemoglobin A1c on 05/08/2024 was 10.1 Thrombocytopenia - Platelet count was 132,000 - Has had fluctuating counts in the past but typically appears normal - Will repeat in a.m. CAD/chronic HFrEF/hyperlipidemia/essential hypertension - Previous CABG in 1999 with MENDOZA to LAD, left radial to RCA with subsequent occlusion of both bypass grafts and development of collateral circulation - Has multiple coronary stents - Continue all goal-directed medications to include carvedilol, Farxiga, losartan - Continue home statin and Zetia - Follows as an outpatient with cardiology in [place] - Patient has AICD/pacer in place -Follows with electrophysiology and indicated he may need lead replaced or adjustments with follow-up pending - Had negative stress test in June 2023 History of nonsustained VT - Has ICD pacer next-follows in [place] with electrophysiology History of PEs/DVT - Multiple PEs previously - Continue home Xarelto Peripheral vascular disease - Multiple bilateral lower extremity stents - Has required amputation due to severe peripheral vascular disease with poor perfusion in 2023 - Continue outpatient follow-up with vascular surgery - continue secondary prevention Gout - Continue home allopurinol COPD without exacerbation - Continue as needed nebulizers - Restart home inhalers at discharge Irritable bowel syndrome - Restart Linzess at discharge DVT prophylaxis - Continue home Xarelto CODE STATUS - Full code is verified on admission Charges/Coding Visit Charges Inpatient E&M: 35103 Subs Hosp L2
[2024-06-15] MEDS: Carvedilol 6.25 MG Tablet PO ×2 (08:45→16:13)
[2024-06-15] MEDS: Insulin Lispro 100 UNIT/ML INSULN.PEN 30 UNIT SC ×3 (08:46→17:27)
[2024-06-15] MEDS: Losartan Potassium 50 MG Tablet PO (08:46)
[2024-06-15] MEDS: Loratadine 10 MG Tablet PO (08:46)
[2024-06-15] MEDS: Empagliflozin 10 MG Tablet PO (08:47)
[2024-06-15] MEDS: Furosemide 40 MG/4 ML Vial IV (08:47)
[2024-06-15] MEDS: 0.9% Saline Lock 10 ML Syringe IV (08:47)
[2024-06-15] MEDS: Atorvastatin Calcium 80 MG Tablet PO (08:47)
[2024-06-15] MEDS: Senna/Docusate Sodium 1 Tablet 2 TABLET PO ×2 (08:47→21:28)
[2024-06-15] MEDS: Allopurinol 100 MG Tablet PO ×2 (08:48→21:28)
[2024-06-15] MEDS: Rivaroxaban 20 MG Tablet PO (08:48)
[2024-06-15] MEDS: Ezetimibe 10 MG Tablet PO (08:48)
[2024-06-15] MEDS: Insulin Glargine-YFGN 100 UNIT/ML Pen 60 UNIT SC (10:10)
[2024-06-15 11:44] LABS: Bedside Glucose 207 mg/dL (74-106)
[2024-06-15] MEDS: oxyCODONE 5 MG Tablet PO ×2 (14:26→21:28)
[2024-06-15 16:59] LABS: Bedside Glucose 127 mg/dL (74-106)
[2024-06-15] MEDS: traZODone 50 MG Tablet PO (21:28)
[2024-06-15] MEDS: hydrOXYzine 10 MG Tablet 50 MG PO (21:36)
[2024-06-15 23:19] LABS: Bedside Glucose 116 mg/dL (74-106)
[2024-06-16] VITALS (7 sets, daily range): BP systolic 111–140; BP diastolic 60–73; PULSE 67–81; RESP 18–20; TEMP 36.6–37.1; O2SAT 94–97; BMI 29.9
--- NOTE | 2024-06-16 02:33 | EKG12_ITS ---
Test Reason : CP Blood Pressure : */* mmHG Vent. Rate : 71 BPM Atrial Rate : 71 BPM P-R Int : 220 ms QRS Dur : 116 ms QT Int : 460 ms P-R-T Axes : 75 90 195 degrees QTcB Int : 499 ms Sinus rhythm with 1st degree A-V block Possible Left atrial enlargement Rightward axis ST & T wave abnormality, consider lateral ischemia Prolonged QT Abnormal ECG Confirmed by ERNESTO OLIVA, PITA ([id number]), digital editor VERONIKA THURSTON ([id number]) on 06/19/2024 1:37:47 PM Referred By: JIN Confirmed By: PITA OROZCO MD
[2024-06-16 03:20] LABS: Hematocrit 40.2 % (40-54); Hemoglobin 13.2 g/dL (13.0-16.5); Mean Corp Hgb Conc 32.8 g/dL (32-36); Mean Corpuscular Hgb 27.5 pg (27.0-32.0); Mean Corpuscular Volume 83.8 fL (80-94); Mean Platelet Vol. 11.1 fl (6.2-12.0); Platelet Count 129 K/mm3 (150-450); RBC Distribution Width CV 16.4 % (11.6-14.6); RBC Distribution Width SD 50.2 fl (35.1-43.9); White Blood Count 9.2 K/mm3 (4.4-11.0)
[2024-06-16 03:35] LABS: Troponin T High Sensitivity 29 ng/L (<=22)
[2024-06-16 03:38] LABS: Anion Gap 12 (5-15); BUN 23 mg/dL (4-19); BUN/Creat Ratio 21.6 RATIO (10-20); Calcium,Total 8.8 mg/dL (7.6-11.0); Chloride 100 mmol/L (98-108); Creatinine, Serum 1.04 mg/dL (0.70-1.20); EST Glomerular Filtration Rate 77 (>60); Glucose 142 mg/dL (70-99); Magnesium 1.8 mg/dL (1.5-2.2); Phosphorus 4.2 mg/dL (2.7-4.5); Potassium 3.9 mmol/L (3.3-5.1); Sodium Level 137 mmol/L (133-145)
[2024-06-16 03:41] LABS: Bedside Glucose 134 mg/dL (74-106)
[2024-06-16] MEDS: oxyCODONE 5 MG Tablet PO ×3 (05:37→21:43)
--- NOTE | 2024-06-16 07:28 | PN.HOSP_ITS ---
Reason for Visit Reason for Visit: Diagnoses Fluid overload, unspecified (06/14/24) Acute on chronic systolic (congestive) heart failure (06/14/24) Orthopnea (06/14/24) Shortness of breath (06/14/24) Weakness (06/14/24) Other specified abnormal findings of blood chemistry (06/14/24) Subjective Subjective Patient is a 68-year-old gentleman with multiple comorbidities including chronic congestive heart failure who presented with shortness of breath and assessment of acute congestive heart failure made admitted to a monitored bed for further management Objective Data Objective Data Vital Signs: Vital Signs Temp Pulse Resp BP Pulse Ox O2 Del Method 97.8 F 67 18 119/60 95 Room Air 06/16/24 05:36 06/16/24 05:36 06/16/24 05:36 06/16/24 05:36 06/16/24 05:36 06/16/24 05:36 Oxygen Delivery Method Room Air Weight: 111.6 kg Body Mass Index (BMI) 29.9 Intake & Output: Intake and Output for Last 24 Hours 06/14/24 06/15/24 06/16/24 23:59 23:59 23:59 Intake Total 1440 / 1440 680 / 920 600 / 600 Balance 1440 / 1440 680 / 920 600 / 600 Lab / Micro Data 06/16/24 03:09 06/16/24 03:09 Labs: Laboratory Results - last 24 hr 06/15/24 11:24: POC Glucose 207 H 06/15/24 16:12: POC Glucose 127 H 06/15/24 21:25: POC Glucose 116 H 06/16/24 02:29: POC Glucose 134 H 06/16/24 03:09: WBC 9.2, RBC 4.80, Hgb 13.2, Hct 40.2, MCV 83.8, MCH 27.5, MCHC 32.8, RDW Std Deviation 50.2 H, RDW Coeff of Eula 16.4 H, Plt Count 129 L, MPV 11.1, Sodium 137, Potassium 3.9, Chloride 100, Carbon Dioxide 25.0, Anion Gap 12, BUN 23 H, Creatinine 1.04, Estim Creat Clear Calc 91.20, Est GFR (MDRD) Non- Af 77, BUN/Creatinine Ratio 21.6 H, Glucose 142 H, Calcium 8.8, Phosphorus 4.2, Magnesium 1.8, Troponin T High Sens 29 H D Micro: Microbiology 06/14/24 11:53 Urine Catheter - Catheter Urine Culture - Preliminary Coag Negative Staph 06/14/24 11:24 Mucosa - Nose SARS-CoV-2, Influenza & RSV (PCR) - Final Physical Exam Narrative GENERAL: cooperative HEENT: Atraumatic; normocephalic EYES; Anicteric, Normal Conjunctiva NECK; supple, normal thyroid, RESPIRATORY: Diminished to auscultation with some wheezes CARDIOVASCULAR: Regular S1 S2, GI: soft, normoactive bowel sounds, : No Renal angle tenderness; EXTREMITIES: No edema, no clubbing, MUSCULOSKELETAL: no muscle wasting NEURO: Awake; no lateralizing signs. SKIN: No Rash PSYCH; Flat affect Assessment & Plan Assessment/Plan (1) Generalized weakness: (2) Shortness of breath: (3) Orthopnea: (4) Elevated brain natriuretic peptide (BNP) level: (5) Elevated troponin: (6) Acute on chronic heart failure with reduced ejection fraction (HFrEF, <= 40%): PLAN: Plan Patient is a 68-year-old gentleman with multiple comorbidities including chronic congestive heart failure who presented with shortness of breath and assessment of acute congestive heart failure made admitted to a monitored bed for further management 1. Acute on chronic congestive heart failure with reduced ejection fraction ? 2D echo from 03/10/2020 demonstrated EF of 40% with moderate global hypokinesis. Patient admitted to monitored bed repeat echo ordered. Subsequent management with strict input and output, daily weight, low-sodium diet as well as diuretic therapy with furosemide initiated 2. Elevated troponin ? Secondary to demand ischemia from congestive heart failure 3. Diabetes mellitus type 2 ? Patient is on long-acting insulin did continue her home dose also placed on Accu-Cheks before meals and at bedtime with sliding scale coverage 3. Coronary artery disease ? With previous CABG and subsequent stent placement patient is on guideline directed medical therapy 5. Ischemic cardiomyopathy with history of nonsustained polymorphic VT ? Status post AICD placed 6. Hypertension - Blood pressure controlled, home medications continued with dose adjustment as needed 7. Dyslipidemia -Patient is on statin therapy, continued at home dose 8. Gout ? Patient is on allopurinol continue 9. Peripheral arterial disease ? Multiple bilateral lower extremity stents patient underwent amputation due to severe peripheral vascular disease with poor perfusion in 2023 10. 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 Patient is on Xarelto continue 11. COPD ? Currently not in exacerbation aerosol treatment as needed 12. Irritable bowel syndrome - Restart Linzess at discharge 13. DVT prophylaxis ? Already on Xarelto Time spent in the patient's overall evaluation,decision-making process, review of diagnostic data, adjustment of management, discussion with other providers, nursing nursing and ancillary staff involved in patient's care documentation, 40 Minutes Charges/Coding Visit Charges Inpatient E&M: 78894 Subs Hosp L2
[2024-06-16 08:26] LABS: Bedside Glucose 162 mg/dL (74-106)
[2024-06-16] MEDS: Carvedilol 6.25 MG Tablet PO ×2 (08:43→21:44)
[2024-06-16] MEDS: Ezetimibe 10 MG Tablet PO (08:43)
[2024-06-16] MEDS: Losartan Potassium 50 MG Tablet PO (08:43)
[2024-06-16] MEDS: Senna/Docusate Sodium 1 Tablet 2 TABLET PO ×2 (08:43→21:44)
[2024-06-16] MEDS: Loratadine 10 MG Tablet PO (08:43)
[2024-06-16] MEDS: Furosemide 40 MG/4 ML Vial IV (08:44)
[2024-06-16] MEDS: Atorvastatin Calcium 80 MG Tablet PO (08:44)
[2024-06-16] MEDS: Rivaroxaban 20 MG Tablet PO (08:44)
[2024-06-16] MEDS: Allopurinol 100 MG Tablet PO ×2 (08:44→21:45)
[2024-06-16] MEDS: Empagliflozin 10 MG Tablet PO (08:44)
[2024-06-16] MEDS: Insulin Lispro 100 UNIT/ML INSULN.PEN 30 UNIT SC ×2 (08:58→17:29)
--- NOTE | 2024-06-16 10:07 | CASEMGMT ---
Social Work Pt has not completed LW/POA, would like to do so as time allows. SW will assist with completing documents as time allows. NASIM Porras
--- NOTE | 2024-06-16 11:50 | CASEMGMT ---
RN LUZ Face to Face with patient for initial transition planning/care coordination assessment. RN CM introduced self and role at [facility]. Patient lying in bed, alert and oriented. Patient willing to participate in assessment and is able to answer all questions appropriately. Care providers, pharmacy, and demographics verified. Strata: 3 PCP: Jose Specialists: Ayush, vascular; Kayla, reduction plant supervisor; Anne Marie, Flash Designer Preferred Pharmacy: [facility] Insurance: [facility], [facility] Prescription Benefit: yes Living Will/HPOA: none LNOK: Daughter Living Arrangements: Patient lives alone in a mobile home with 3 steps and railing to enter the home. Patient states he is independent at home. Transportation: self, daughters, friends DME/HHC: Patient has raised toilet, walker, crutches, grab bars, wheelchair, glucometer. Patient has been to [facility] in the past. Patient has had [facility] in the past. Will monitor for home oxygen, prefers [employer]. Patient wishes to discharge home, denies need for home health at this time. Patient states he has no further needs or concerns at this time. CM to follow for discharge planning needs that may arise. Disposition Plan: Patient to discharge home with family support and follow-up plans in place. Will monitor for home oxygen. Haily JULES, RN, CM
[2024-06-16 12:16] LABS: Bedside Glucose 141 mg/dL (74-106)
--- NOTE | 2024-06-16 15:55 | CASEMGMT ---
Social Work - Advance Directive Received notice patient is interested in completing or at least getting more information regarding advance directives. Presented to patient's room to disusss, but patient in the middle of an ECHO. Unable to meet with patient. HEATHER willl attempt to come back at a later time for discussion. JAMES Guillaume
[2024-06-16 17:50] LABS: Bedside Glucose 208 mg/dL (74-106)
[2024-06-16] MEDS: traZODone 50 MG Tablet PO (21:44)
[2024-06-16] MEDS: hydrOXYzine 10 MG Tablet 50 MG PO (21:44)
[2024-06-16] MEDS: 0.9% Saline Lock 10 ML Syringe IV (21:46)
[2024-06-16 22:34] LABS: Bedside Glucose 128 mg/dL (74-106)
[2024-06-17 04:44] VITALS: BMI 29.9
[2024-06-17 05:12] VITALS: BP 116/54; PULSE 84; RESP 16; TEMP 36.5; O2SAT 93
[2024-06-17] MEDS: oxyCODONE 5 MG Tablet PO ×2 (05:16→14:20)
[2024-06-17 06:44] LABS: Absolute Lymphocyte Count 2.21 X10^3/uL (0.83-4.51); Absolute Neutrophil Count 4.3 X10^3/uL (2.0-7.7); Basophil# 0.06 X10^3/uL; Basophil% 0.8 % (0-1); Eosinophil# 0.19 X10^3/uL; Eosinophils% 2.5 % (0-5); Hematocrit 43.4 % (40-54); Lymphocyte # 2.21 X10^3/ul (0.83-4.51); Lymphocyte % 29.3 % (19-41); Mean Corp Hgb Conc 32.3 g/dL (32-36); Mean Corpuscular Hgb 27.3 pg (27.0-32.0); Mean Corpuscular Volume 84.6 fL (80-94); Mean Platelet Vol. 11.3 fl (6.2-12.0); Monocyte# 0.82 X10^3/uL; Monocyte% 10.9 % (0-10); NRBC Flagged by Analyzer 0 % (0-5); Neutrophil # 4.25 X10^3/uL (2.7-7.7); Neutrophil % 56.2 % (47-70); Platelet Count 127 K/mm3 (150-450); RBC Distribution Width CV 16.3 % (11.6-14.6); RBC Distribution Width SD 50.2 fl (35.1-43.9); Red Blood Count 5.13 M/mm3 (4.6-6.2); White Blood Count 7.6 K/mm3 (4.4-11.0)
[2024-06-17 07:03] LABS: Anion Gap 11 (5-15); BUN 24 mg/dL (4-19); BUN/Creat Ratio 22.5 RATIO (10-20); Calcium,Total 8.8 mg/dL (7.6-11.0); Chloride 101 mmol/L (98-108); Creatinine, Serum 1.06 mg/dL (0.70-1.20); EST Glomerular Filtration Rate 75 (>60); Estimated Creatinine Clearance 88.75 ml/min (50-250); Glucose 178 mg/dL (70-99); Magnesium 1.9 mg/dL (1.5-2.2); Phosphorus 4.1 mg/dL (2.7-4.5); Potassium 3.8 mmol/L (3.3-5.1); Sodium Level 139 mmol/L (133-145)
--- NOTE | 2024-06-17 07:43 | PCM.PN.HOSP ---
Reason for Visit Reason for Visit: Diagnoses Fluid overload, unspecified (06/14/24) Acute on chronic systolic (congestive) heart failure (06/14/24) Orthopnea (06/14/24) Shortness of breath (06/14/24) Weakness (06/14/24) Other specified abnormal findings of blood chemistry (06/14/24) Objective Data Objective Data Vital Signs: Vital Signs Temp Pulse Resp BP Pulse Ox O2 Del Method 97.7 F L 84 16 116/54 L 93 Room Air 06/17/24 05:12 06/17/24 05:12 06/17/24 05:12 06/17/24 05:12 06/17/24 05:12 06/17/24 05:17 Oxygen Delivery Method Room Air Weight: 111.7 kg Body Mass Index (BMI) 29.9 Intake & Output: Intake and Output for Last 24 Hours 06/15/24 06/16/24 06/17/24 23:59 23:59 23:59 Intake Total 680 / 920 1900 / 1900 Output Total 3700 / 3700 600 / 600 Balance 680 / 920 -1800 / -1800 -600 / -600 Lab / Micro Data 06/17/24 06:23 06/17/24 06:23 Labs: Laboratory Results - last 24 hr 06/16/24 07:44: POC Glucose 162 H 06/16/24 11:36: POC Glucose 141 H 06/16/24 17:25: POC Glucose 208 H 06/16/24 21:41: POC Glucose 128 H 06/17/24 06:23: WBC 7.6, RBC 5.13, Hgb 14.0, Hct 43.4, MCV 84.6, MCH 27.3, MCHC 32.3, RDW Std Deviation 50.2 H, RDW Coeff of Eula 16.3 H, Plt Count 127 L, MPV 11.3, Immature Gran % (Auto) 0.300, Neut % (Auto) 56.2, Lymph % (Auto) 29.3, [place] % (Auto) 10.9 H, Eos % (Auto) 2.5, Baso % (Auto) 0.8, Absolute Neuts (auto) 4.3, Absolute Lymphs (auto) 2.21, Nucleated RBC % 0, Sodium 139, Potassium 3.8, Chloride 101, Carbon Dioxide 27.0, Anion Gap 11, BUN 24 H, Creatinine 1.06, Estim Creat Clear Calc 88.75, Est GFR (MDRD) Non-Af 75, BUN/Creatinine Ratio 22.5 H, Glucose 178 H, Calcium 8.8, Phosphorus 4.1, Magnesium 1.9 Micro: Microbiology 06/14/24 11:30 Blood Culture (Wb) - Anticubital Right Blood Culture - Preliminary No growth in 48 hours. 06/14/24 11:15 Blood Culture (Wb) - Venous Blood Culture - Preliminary No growth in 48 hours. 06/14/24 11:53 Urine Catheter - Catheter Urine Culture - Final Coag Negative Staph 06/14/24 11:24 Mucosa - Nose SARS-CoV-2, Influenza & RSV (PCR) - Final Physical Exam Narrative GENERAL: cooperative HEENT: Atraumatic; normocephalic EYES; Anicteric, Normal Conjunctiva NECK; supple, normal thyroid, RESPIRATORY: Diminished to auscultation with some wheezes CARDIOVASCULAR: Regular S1 S2, GI: soft, normoactive bowel sounds, : No Renal angle tenderness; EXTREMITIES: No edema, no clubbing, MUSCULOSKELETAL: no muscle wasting NEURO: Awake; no lateralizing signs. SKIN: No Rash PSYCH; Flat affect Assessment & Plan Assessment/Plan (1) Generalized weakness: (2) Shortness of breath: (3) Orthopnea: (4) Elevated brain natriuretic peptide (BNP) level: (5) Elevated troponin: (6) Acute on chronic heart failure with reduced ejection fraction (HFrEF, <= 40%): PLAN: Plan Patient is a 68-year-old gentleman with multiple comorbidities including chronic congestive heart failure who presented with shortness of breath and assessment of acute congestive heart failure made admitted to a monitored bed for further management 1. Acute on chronic congestive heart failure with reduced ejection fraction ? 2D echo from 03/10/2020 demonstrated EF of 40% with moderate global hypokinesis. Patient admitted to monitored bed repeat echo ordered. Subsequent management with strict input and output, daily weight, low-sodium diet as well as diuretic therapy with furosemide initiated 2. Elevated troponin ? Secondary to demand ischemia from congestive heart failure 3. Diabetes mellitus type 2 ? Patient is on long-acting insulin did continue her home dose also placed on Accu-Cheks before meals and at bedtime with sliding scale coverage 3. Coronary artery disease ? With previous CABG and subsequent stent placement patient is on guideline directed medical therapy 5. Ischemic cardiomyopathy with history of nonsustained polymorphic VT ? Status post AICD placed 6. Hypertension - Blood pressure controlled, home medications continued with dose adjustment as needed 7. Dyslipidemia -Patient is on statin therapy, continued at home dose 8. Gout ? Patient is on allopurinol continue 9. Peripheral arterial disease ? Multiple bilateral lower extremity stents patient underwent amputation due to severe peripheral vascular disease with poor perfusion in 2023 10. 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 Patient is on Xarelto continue 11. COPD ? Currently not in exacerbation aerosol treatment as needed 12. Irritable bowel syndrome - Restart Linzess at discharge 13. DVT prophylaxis ? Already on Xarelto Time spent in the patient's overall evaluation,decision-making process, review of diagnostic data, adjustment of management, discussion with other providers, nursing nursing and ancillary staff involved in patient's care documentation, 40 Minutes
[2024-06-17 08:05] LABS: Bedside Glucose 188 mg/dL (74-106)
[2024-06-17 09:05] VITALS: BP 123/61; PULSE 76; RESP 16; TEMP 36.6; O2SAT 94
[2024-06-17] MEDS: Insulin Lispro 100 UNIT/ML INSULN.PEN 30 UNIT SC ×2 (09:22→12:53)
[2024-06-17] MEDS: Loratadine 10 MG Tablet PO (09:24)
[2024-06-17] MEDS: Carvedilol 6.25 MG Tablet PO (09:24)
[2024-06-17] MEDS: Losartan Potassium 50 MG Tablet PO (09:24)
[2024-06-17] MEDS: Empagliflozin 10 MG Tablet PO (09:25)
[2024-06-17] MEDS: Atorvastatin Calcium 80 MG Tablet PO (09:25)
[2024-06-17] MEDS: Senna/Docusate Sodium 1 Tablet 2 TABLET PO (09:25)
[2024-06-17] MEDS: Allopurinol 100 MG Tablet PO (09:26)
[2024-06-17] MEDS: Rivaroxaban 20 MG Tablet PO (09:26)
[2024-06-17] MEDS: Ezetimibe 10 MG Tablet PO (09:26)
[2024-06-17] MEDS: Furosemide 40 MG/4 ML Vial IV (09:27)
[2024-06-17] MEDS: 0.9% Saline Lock 10 ML Syringe IV (09:34)
--- NOTE | 2024-06-17 09:39 | PCM.DC.SUM ---
Providers Date of Admission: 06/14/24 Primary Care Physician: Dr. Bulmaro Garcia MD Reason For Visit: AECHF Diagnosis Discharge Diagnosis (1) Generalized weakness: Status: Acute Code(s): R53.1 - Weakness (2) Shortness of breath: Status: Acute Code(s): R06.02 - Shortness of breath (3) Orthopnea: Status: Acute Code(s): R06.01 - Orthopnea (4) Elevated brain natriuretic peptide (BNP) level: Status: Acute Code(s): R79.89 - Other specified abnormal findings of blood chemistry (5) Elevated troponin: Status: Acute Code(s): R79.89 - Other specified abnormal findings of blood chemistry (6) Acute on chronic heart failure with reduced ejection fraction (HFrEF, <= 40%): Status: Chronic Code(s): I50.23 - Acute on chronic systolic (congestive) heart failure Plan Patient is a 68-year-old gentleman with multiple comorbidities including chronic congestive heart failure who presented with shortness of breath and assessment of acute congestive heart failure made admitted to a monitored bed for further management 1. Acute on chronic congestive heart failure with reduced ejection fraction ? 2D echo from 03/10/2020 demonstrated EF of 40% with moderate global hypokinesis. Patient admitted to monitored bed repeat echo ordered. Subsequent management with strict input and output, daily weight, low-sodium diet as well as diuretic therapy with furosemide initiated 2. Elevated troponin ? Secondary to demand ischemia from congestive heart failure 3. Diabetes mellitus type 2 ? Patient is on long-acting insulin did continue her home dose also placed on Accu-Cheks before meals and at bedtime with sliding scale coverage 3. Coronary artery disease ? With previous CABG and subsequent stent placement patient is on guideline directed medical therapy 5. Ischemic cardiomyopathy with history of nonsustained polymorphic VT ? Status post AICD placed 6. Hypertension - Blood pressure controlled, home medications continued with dose adjustment as needed 7. Dyslipidemia -Patient is on statin therapy, continued at home dose 8. Gout ? Patient is on allopurinol continue 9. Peripheral arterial disease ? Multiple bilateral lower extremity stents patient underwent amputation due to severe peripheral vascular disease with poor perfusion in 2023 10. 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 Patient is on Xarelto continue 11. COPD ? Currently not in exacerbation aerosol treatment as needed 12. Irritable bowel syndrome - Restart Linzess at discharge 13. DVT prophylaxis ? Already on Xarelto 14. Anxiety disorder -patient was prescribed Paxil on discharge Time spent in the patient's overall evaluation,decision-making process, review of diagnostic data, adjustment of management, discussion with other providers, nursing nursing and ancillary staff involved in patient's care documentation, 35 Minutes Medications at Discharge Home Medications atorvastatin 80 mg tablet 80 mg PO DAILY cholesterol 10/05/13 nitroglycerin 0.4 mg sublingual tablet 0.4 mg sublingual Q5M PRN Angina pain #25 tabs 10/14/13 albuterol sulfate 90 mcg/actuation aerosol inhaler 6.7 g inhalation Q4H PRN COPD 07/22/16 hydroxyzine HCl 50 mg tablet 50 mg PO QHS sleep 03/14/17 losartan 50 mg tablet 50 mg PO DAILY blood pressure 02/01/18 trazodone 50 mg tablet 50 mg PO QHS sleep 02/25/20 carvedilol 6.25 mg tablet 6.25 mg PO BID blood pressure 05/31/20 umeclidinium 62.5 mcg-vilanterol 25 mcg/actuation powdr for inhalation 1 puff PO DAILY COPD 05/31/20 ezetimibe 10 mg tablet 10 mg PO DAILY Cholesterol 01/03/22 rivaroxaban 20 mg tablet (Xarelto) 20 mg PO DAILY hx- DVT 01/03/22 allopurinol 100 mg tablet 100 mg PO BID GOUT 03/06/22 linaclotide 145 mcg capsule (Linzess) 145 mcg PO DAILY 03/07/23 dapagliflozin propanediol 5 mg tablet (Farxiga) 5 mg PO DAILY 07/13/23 levocetirizine 5 mg tablet 5 mg PO DAILY itch 06/14/24 oxycodone 5 mg tablet 5 mg PO TID pain 06/14/24 dulaglutide 0.75 mg/0.5 mL subcutaneous pen injector (Trulicity) 0.75 mg subcut QWEEK blood sugar 06/17/24 furosemide 40 mg tablet 40 mg PO BIDCM diuretic #60 tabs 06/17/24 insulin glargine 100 unit/mL (3 mL) subcutaneous pen (Lantus Solostar U-100 Insulin) 60 unit (0.6 mL) subcut 2XD Diabetes #15 mL 06/17/24 insulin lispro 100 unit/mL subcutaneous pen (Humalog KwikPen (U-100) Insulin) 30 unit (0.3 mL) subcut 3XD diabetes #15 mL 06/17/24 paroxetine HCl 20 mg tablet (Paxil) 20 mg PO DAILY #60 tabs 06/17/24 Physical Exam Narrative GENERAL: cooperative HEENT: Atraumatic; normocephalic EYES; Anicteric, Normal Conjunctiva NECK; supple, normal thyroid, RESPIRATORY: Diminished to auscultation with some wheezes CARDIOVASCULAR: Regular S1 S2, GI: soft, normoactive bowel sounds, : No Renal angle tenderness; EXTREMITIES: No edema, no clubbing, MUSCULOSKELETAL: no muscle wasting NEURO: Awake; no lateralizing signs. SKIN: No Rash PSYCH; Flat affect Weight / BMI Weight Weight: 111.7 kg Body Mass Index (BMI) 29.9 ABG / Lab / Microbiology Data 06/17/24 06:23 06/17/24 06:23 Laboratory: Laboratory Results - last 24 hr 06/16/24 11:36: POC Glucose 141 H 06/16/24 17:25: POC Glucose 208 H 06/16/24 21:41: POC Glucose 128 H 06/17/24 06:23: WBC 7.6, RBC 5.13, Hgb 14.0, Hct 43.4, MCV 84.6, MCH 27.3, MCHC 32.3, RDW Std Deviation 50.2 H, RDW Coeff of Eula 16.3 H, Plt Count 127 L, MPV 11.3, Immature Gran % (Auto) 0.300, Neut % (Auto) 56.2, Lymph % (Auto) 29.3, [place] % (Auto) 10.9 H, Eos % (Auto) 2.5, Baso % (Auto) 0.8, Absolute Neuts (auto) 4.3, Absolute Lymphs (auto) 2.21, Nucleated RBC % 0, Sodium 139, Potassium 3.8, Chloride 101, Carbon Dioxide 27.0, Anion Gap 11, BUN 24 H, Creatinine 1.06, Estim Creat Clear Calc 88.75, Est GFR (MDRD) Non-Af 75, BUN/Creatinine Ratio 22.5 H, Glucose 178 H, Calcium 8.8, Phosphorus 4.1, Magnesium 1.9 06/17/24 07:48: POC Glucose 188 H Microbiology: Microbiology 06/14/24 11:30 Blood Culture (Wb) - Anticubital Right Blood Culture - Preliminary No growth in 48 hours. 06/14/24 11:15 Blood Culture (Wb) - Venous Blood Culture - Preliminary No growth in 48 hours. 06/14/24 11:53 Urine Catheter - Catheter Urine Culture - Final Coag Negative Staph 06/14/24 11:24 Mucosa - Nose SARS-CoV-2, Influenza & RSV (PCR) - Final D/C Instructions Discharge Diet: 1800 Calorie Control Diet, 8 Cup Fluid Restriction and 2000 mg Sodium Diet Discharge Activity: Return to Normal Activity Call your doctor if you observe: Fever of 101 or Higher, Shortness of breath, Fainting spells and Chest pain DC O2, CPAP, BIPAP Needs Home O2 Discharge instructions: No Meaningful Use Info Meaningful Use Meaningful Use Diagnoses (Choose all that apply): CHF CHF ALEXANDER/ARB ordered at discharge?: Yes Documented LVEF (%): 40 Ischemic Stroke Statin Dosing Therapy Reference: STATIN DOSE THERAPY REFERENCE: * Patients > 75 years receive moderate or high dose statin therapy. * Patients 75 years or YOUNGER should receive HIGH intensity statin dose unless contraindicated. You will be required to document reason for non-treatment if statin daily dose does not meet guidelines. HIGH DOSE STATIN THERAPY DAILY Atorvastatin > than or = to 40 mg Rosuvastatin > than or = to 20 mg Amlodipine + Atorvastatin > than or = to 2.5/40 mg Ezetimibe + Simvastatin 10/80 mg Simvastatin 80mg Discharge Plan Admission Admit Date/Time: 06/14/24 15:26 Attending Provider: Simón Floyd Primary Care Provider: Bulmaro Garcia Consulting Providers: Gloria Blanca; Velia Bright Discharge Orders/Prescriptions Prescriptions: New paroxetine HCl [Paxil] 20 mg tablet 20 mg PO DAILY Qty: 60 0RF Continued hydroxyzine HCl 50 mg tablet 50 mg PO QHS losartan 50 mg tablet 50 mg PO DAILY dapagliflozin propanediol [Farxiga] 5 mg tablet 5 mg PO DAILY atorvastatin 80 MG tablet 80 mg PO DAILY nitroglycerin 0.4 MG tablet 0.4 mg sublingual Q5M PRN (Reason: Angina pain ) Qty: 25 0RF trazodone 50 mg tablet 50 mg PO QHS albuterol sulfate 6.7 GM HFA aerosol inhaler 6.7 g inhalation Q4H PRN (Reason: COPD) umeclidinium-vilanterol 1 EACH blister with device 1 puff PO DAILY carvedilol 6.25 MG tablet 6.25 mg PO BID ezetimibe 10 mg tablet 10 mg PO DAILY Xarelto 20 mg tablet 20 mg PO DAILY allopurinol 100 mg tablet 100 mg PO BID Linzess 145 mcg capsule 145 mcg PO DAILY levocetirizine 5 mg tablet 5 mg PO DAILY oxycodone 5 mg tablet 5 mg PO TID Trulicity 0.75 mg/0.5 mL pen injector 0.75 mg subcut QWEEK Changed furosemide 40 MG tablet 40 mg PO BIDCM Qty: 60 0RF insulin lispro [Humalog KwikPen Insulin] 100 unit/mL insulin pen 30 unit subcut 3XD Qty: 15 0RF insulin glargine [Lantus Solostar U-100 Insulin] 100 unit/mL (3 mL) Insulin Pen 60 unit subcut 2XD Qty: 15 0RF Patient Comments: pt states continues to work on dosing with PCP Discontinued insulin glargine [Lantus U-100 Insulin] 100 unit/mL solution 40 unit subcut 4X/DAY insulin aspart U-100 [Novolog U-100 Insulin aspart] 100 unit/mL solution Patient Comments: INJECT 84 UNITS twice DAILY WITH MEALS and 64 UNITS WITH snacks up to twice DAILY pt states continues to work on dosing with PCP Referrals / Follow Up: Berry Garza MD [Med Staff - Active Staff] - Within 2 Weeks Bulmaro Garcia MD [Primary Care Provider] - Within 2 Weeks Disposition Disposition (needs filled in before D/C Order can be placed): Home, Self Care Charges/Coding Visit Charges Inpatient E&M: 04100 Disch Hosp >30min
[2024-06-17 10:58] VITALS: O2SAT 92; O2SAT 94
[2024-06-17 11:57] LABS: Bedside Glucose 170 mg/dL (74-106)
--- NOTE | 2024-06-17 12:52 | CASEMGMT ---
Patient has order for discharge. RN CM in to discuss needs at discharge. Patient denies needs or help at discharge. Patient had no further questions or concerns.
--- NOTE | 2024-06-17 13:15 | PHA.DC.MC.R ---
Pharmacy [facility] has performed discharge medication reconciliation and counseling for this patient. 1. Paroxetine 20mg PO daily 2. Lasix increased to BID 3. Lantus changed to 60 units SC BID and Humalog changed to 30units SC TID The patient's discharge medication list was reviewed for discrepancies and discrepancies were resolved. The patient was counseled on the following discharge medications and changes in medications for homegoing were reviewed. The Reason for Use, instructions for use, and potential side effects were reviewed for all new medications. The patient's questions regarding all of their medications were answered. The patient was able to verbally demonstrate an understanding of their discharge medications. Medications at Discharge Home Medications atorvastatin 80 mg tablet 80 mg PO DAILY cholesterol 10/05/13 nitroglycerin 0.4 mg sublingual tablet 0.4 mg sublingual Q5M PRN Angina pain #25 tabs 10/14/13 albuterol sulfate 90 mcg/actuation aerosol inhaler 6.7 g inhalation Q4H PRN COPD 07/22/16 hydroxyzine HCl 50 mg tablet 50 mg PO QHS sleep 03/14/17 losartan 50 mg tablet 50 mg PO DAILY blood pressure 02/01/18 trazodone 50 mg tablet 50 mg PO QHS sleep 02/25/20 carvedilol 6.25 mg tablet 6.25 mg PO BID blood pressure 05/31/20 umeclidinium 62.5 mcg-vilanterol 25 mcg/actuation powdr for inhalation 1 puff PO DAILY COPD 05/31/20 ezetimibe 10 mg tablet 10 mg PO DAILY Cholesterol 01/03/22 rivaroxaban 20 mg tablet (Xarelto) 20 mg PO DAILY hx- DVT 01/03/22 allopurinol 100 mg tablet 100 mg PO BID GOUT 03/06/22 linaclotide 145 mcg capsule (Linzess) 145 mcg PO DAILY 03/07/23 dapagliflozin propanediol 5 mg tablet (Farxiga) 5 mg PO DAILY 07/13/23 levocetirizine 5 mg tablet 5 mg PO DAILY itch 06/14/24 oxycodone 5 mg tablet 5 mg PO TID pain 06/14/24 dulaglutide 0.75 mg/0.5 mL subcutaneous pen injector (Trulicity) 0.75 mg subcut QWEEK blood sugar 06/17/24 furosemide 40 mg tablet 40 mg PO BIDCM diuretic #60 tabs 06/17/24 insulin glargine 100 unit/mL (3 mL) subcutaneous pen (Lantus Solostar U-100 Insulin) 60 unit (0.6 mL) subcut 2XD Diabetes #15 mL 06/17/24 insulin lispro 100 unit/mL subcutaneous pen (Humalog KwikPen (U-100) Insulin) 30 unit (0.3 mL) subcut 3XD diabetes #15 mL 06/17/24 paroxetine HCl 20 mg tablet (Paxil) 20 mg PO DAILY #60 tabs 06/17/24
[2024-06-17 13:36] VITALS: BP 119/76; PULSE 80; RESP 16; TEMP 36.7; O2SAT 97
--- NOTE | 2024-06-17 13:43 | CASEMGMT ---
Social Work SW assisted pt in completing HCPOA and living will. Copy placed on pt chart and original given to pt. FRACISCO Nugent
== END 2024-06-17 15:04 | disposition home or self-care (01) | DRG 291 ==
LOC: ED 14:58 → PCU 15:13
PROVIDERS: Internal Medicine; Admitting Provider Internal Medicine; Emergency Provider Emergency Medicine; PCP Family Medicine; Visit Provider Internal Medicine
DX: I13.0 Hypertensive heart and chronic kidney disease with heart failure and stage 1 through stage 4 chronic kidney disease, or unspecified chronic kidney disease (principal); I50.23 Acute on chronic systolic (congestive) heart failure; I24.89 Other forms of acute ischemic heart disease; I47.10 Supraventricular tachycardia, unspecified; D69.6 Thrombocytopenia, unspecified; J44.9 Chronic obstructive pulmonary disease, unspecified; E11.65 Type 2 diabetes mellitus with hyperglycemia; N18.9 Chronic kidney disease, unspecified; Z68.30 Body mass index [BMI] 30.0-30.9, adult; E11.51 Type 2 diabetes mellitus with diabetic peripheral angiopathy without gangrene; Z79.4 Long term (current) use of insulin; E78.00 Pure hypercholesterolemia, unspecified; K58.9 Irritable bowel syndrome, unspecified; I25.5 Ischemic cardiomyopathy; M10.9 Gout, unspecified; E11.22 Type 2 diabetes mellitus with diabetic chronic kidney disease; I25.10 Atherosclerotic heart disease of native coronary artery without angina pectoris; I25.2 Old myocardial infarction; Z79.01 Long term (current) use of anticoagulants; Z87.891 Personal history of nicotine dependence; I49.3 Ventricular premature depolarization; R53.1 Weakness; Z95.5 Presence of coronary angioplasty implant and graft; Z86.718 Personal history of other venous thrombosis and embolism; Z79.84 Long term (current) use of oral hypoglycemic drugs; Z95.810 Presence of automatic (implantable) cardiac defibrillator; E66.09 Other obesity due to excess calories; R79.89 Other specified abnormal findings of blood chemistry; R06.01 Orthopnea
CPT/HCPCS: 36415; 71046; 80048; 80053; 81001; 82962; 83605; 83735; 83880; 84100; 84484; 85025; 85027; 85610; 85730; 87040; 87086; 87088; 87631; 93005; 93306; 94640; 94668; 99252; 99285; Q9957; A4216; C8929; G0463; J1940

== ENCOUNTER 2024-08-26 11:28 | Inpatient (IN) | payer MEDICARE, MEDICAID, SELFPAY ==
[2024-08-26] VITALS (11 sets, daily range): BP systolic 97–116; BP diastolic 51–86; PULSE 66–87; RESP 15–23; TEMP 37–37.3; O2SAT 93–99; BMI 29.2; BMI 27.5
--- NOTE | 2024-08-26 11:45 | EKG12_ITS ---
Test Reason : Blood Pressure : */* mmHG Vent. Rate : 79 BPM Atrial Rate : 79 BPM P-R Int : 216 ms QRS Dur : 122 ms QT Int : 440 ms P-R-T Axes : 54 80 109 degrees QTcB Int : 504 ms Sinus rhythm with 1st degree A-V block Possible Left atrial enlargement Non-specific intra-ventricular conduction delay Nonspecific ST abnormality Abnormal ECG Confirmed by ERNESTO OLIVA, PITA ([id number]), editorial specialist RAJANI SHEETS ([id number]) on 08/28/2024 6:39:54 AM Referred By: Confirmed By: PITA OROZCO MD
--- NOTE | 2024-08-26 11:45 | RAD_ITS ---
PROCEDURE: FOOT MIN 3 VIEWS 08/26/2024 REASON FOR EXAM: PAIN, WOUND TECHNIQUE: FOOT MIN 3 VIEWS COMPARISON: None FINDINGS: Bones: The patient is status post amputation of the 1st metatarsal and great toe. Status post amputation of the middle and distal phalanges of the 2nd toe. Partial resection of the proximal phalanx of the 2nd toe. Soft tissue swelling overlying the distal aspect of the proximal phalanx of the 3rd toe with findings suggestive of erosive change. Joints: Normal alignment. Soft tissues: Soft tissue swelling. Other: RAD/Foot min 3 Views IMPRESSION: Status post amputation of the great toe as well as the middle and distal phalan ges of the 2nd toe and partial resection of the proximal phalanx of the 2nd toe. Soft tissue swelling and erosive change overlying the distal portion of the pro ximal phalanx of the 3rd toe. Prior resection of the middle and distal phalanges of the 3rd toe. Soft tissue swelling. Reading Location: [facility]-
--- NOTE | 2024-08-26 11:45 | RAD_ITS ---
PROCEDURE: FOOT MIN 3 VIEWS 08/26/2024 REASON FOR EXAM: PAIN, WOUND TECHNIQUE: FOOT MIN 3 VIEWS COMPARISON: None FINDINGS: Bones: The patient is status post amputation of the 1st metatarsal and great toe. Status post amputation of the middle and distal phalanges of the 2nd toe. Partial resection of the proximal phalanx of the 2nd toe. Soft tissue swelling overlying the distal aspect of the proximal phalanx of the 3rd toe with findings suggestive of erosive change. Joints: Normal alignment. Soft tissues: Soft tissue swelling. Other: RAD/Foot min 3 Views IMPRESSION: Status post amputation of the great toe as well as the middle and distal phalan ges of the 2nd toe and partial resection of the proximal phalanx of the 2nd toe. Soft tissue swelling and erosive change overlying the distal portion of the pro ximal phalanx of the 3rd toe. Prior resection of the middle and distal phalanges of the 3rd toe. Soft tissue swelling. Reading Location: [facility]-
--- NOTE | 2024-08-26 11:45 | EKG12_ITS ---
Test Reason : Blood Pressure : */* mmHG Vent. Rate : 79 BPM Atrial Rate : 79 BPM P-R Int : 216 ms QRS Dur : 122 ms QT Int : 440 ms P-R-T Axes : 54 80 109 degrees QTcB Int : 504 ms Sinus rhythm with 1st degree A-V block Possible Left atrial enlargement Non-specific intra-ventricular conduction delay Nonspecific ST abnormality Abnormal ECG Confirmed by ERNESTO OLIVA, PITA ([id number]), advertising editor RAJANI SHEETS ([id number]) on 08/28/2024 6:39:54 AM Referred By: Confirmed By: PITA OROZCO MD
--- NOTE | 2024-08-26 12:00 | RAD_ITS ---
EXAM: XR Chest, 1 View CLINICAL INDICATION: WEAKNESS, FEVER TECHNIQUE: Frontal view of the chest. COMPARISON: No relevant prior studies available. FINDINGS: LUNGS AND PLEURAL SPACES: Unremarkable. No consolidation. No pneumothorax. HEART: Cardiomegaly without overt failure. MEDIASTINUM: Unremarkable. Normal mediastinal contour. BONES/JOINTS: Unremarkable. No acute fracture. TUBES, LINES AND DEVICES: Left-sided cardiac pacemaker. RAD/Chest 1 View (Portable) IMPRESSION: Cardiomegaly without overt failure. [facility]
--- NOTE | 2024-08-26 12:00 | RAD_ITS ---
EXAM: XR Chest, 1 View CLINICAL INDICATION: WEAKNESS, FEVER TECHNIQUE: Frontal view of the chest. COMPARISON: No relevant prior studies available. FINDINGS: LUNGS AND PLEURAL SPACES: Unremarkable. No consolidation. No pneumothorax. HEART: Cardiomegaly without overt failure. MEDIASTINUM: Unremarkable. Normal mediastinal contour. BONES/JOINTS: Unremarkable. No acute fracture. TUBES, LINES AND DEVICES: Left-sided cardiac pacemaker. RAD/Chest 1 View (Portable) IMPRESSION: Cardiomegaly without overt failure. Reading [facility] [place]
[2024-08-26 12:06] LABS: Hematocrit 45.8 % (40-54); Hemoglobin 15.4 g/dL (13.0-16.5); Immature Granulocytes Count 0.060 X10^3/uL (0.0-0.0); Mean Corp Hgb Conc 33.6 g/dL (32-36); Mean Corpuscular Volume 84.0 fL (80-94); Mean Platelet Vol. 11.0 fl (6.2-12.0); NRBC Flagged by Analyzer 0 % (0-5); Platelet Count 164 K/mm3 (150-450); RBC Distribution Width CV 17.2 % (11.6-14.6); RBC Distribution Width SD 51.7 fl (35.1-43.9); Red Blood Count 5.45 M/mm3 (4.6-6.2); White Blood Count 8.8 K/mm3 (4.4-11.0)
[2024-08-26 12:16] LABS: Prothrombin Time (Protime)PT. 26.9 SECONDS (11.7-14.9)
[2024-08-26 12:17] LABS: Partial Thromboplast Time 44.2 Seconds (24.1-36.2)
[2024-08-26 12:53] LABS: AST(SGOT) 22 U/L (<=37); Alanine Aminotransfer ALT/SGPT 12 U/L (<=46); Albumin, Serum 3.7 g/dL (3.4-4.8); Alkaline Phosphatase 129 U/L (40-129); Anion Gap 13 (5-15); BUN 29 mg/dL (4-19); BUN/Creat Ratio 23.7 RATIO (10-20); Calcium,Total 9.2 mg/dL (7.6-11.0); Carbon Dioxide 24.7 mmol/L (21.0-32.0); Chloride 96 mmol/L (98-108); Estimated Creatinine Clearance 74.52 ml/min (50-250); Globulin 3.6 g/dL (2.2-4.2); Glucose 173 mg/dL (70-99); Potassium 4.0 mmol/L (3.3-5.1)
[2024-08-26 13:20] LABS: Mucous, Urine 0 SEEN /hpf (<or=2+); Red Blood Cells-Urine 0 SEEN /hpf (0-5); Squamous Epithelial Cells - UA 0 SEEN /hpf (0-5)
[2024-08-26 13:21] LABS: Color, Urine Yellow (Yellow); Glucose, Dipstick 1000 mg/dl (Normal); Ketone-Dipstick Negative (Negative); Leukocyte Esterase-Dipstick Negative /ul (Negative); Nitrite-Dipstick Negative (Negative); Occult Blood-Urine 25 /ul (Negative); Protein-Dipstick 15 mg/dl (Negative); Specific Gravity, Urine 1.010 (1.002-1.030); Urine Bilirubin Dipstick Negative (Negative)
--- NOTE | 2024-08-26 13:29 | EX.ED.DYSGE1 ---
HPI History of Present Illness Chief Complaint: General Illness Narrative Narrative: 69-year-old male multiple medical problems including diabetes with neuropathy of bilateral lower extremities, presents with generalized weakness, fever, chills, and malaise for the last 6 days. 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 He lives at home alone, and feels very weak. He called the squad today because he was unable to care for himself, and has not been feeling well. He denies any cough or difficulty breathing, no problems with urination. [facility] Medical History Abnormal lead impedance of implantable cardioverter-defibrillator Clostridioides difficile infection Hyperglycemia due to type 2 diabetes mellitus Acute kidney injury Gout of right knee Pseudogout of right knee Effusion, right knee Right knee pain Constipation Claudication Essential (primary) hypertension History of non-ST elevation myocardial infarction (NSTEMI) (10/11/13) NSVT (nonsustained ventricular tachycardia) Obesity Secondary pulmonary arterial hypertension Pulmonary embolism (09/2013) COPD (chronic obstructive pulmonary disease) Chronic kidney disease Type 2 diabetes mellitus Old inferior wall myocardial infarction (02/27/05) DVT (deep venous thrombosis) IBS (irritable bowel syndrome) Ischemic cardiomyopathy Atherosclerosis of cahto coronary artery of cahto heart without angina pectoris Hyperlipidemia Home Medications ?Medication ?Instructions ?Recorded ?Last Taken ?Type atorvastatin 80 mg tablet 80 mg PO DAILY cholesterol 10/05/13 06/13/24 History nitroglycerin 0.4 mg sublingual 0.4 mg sublingual Q5M PRN Angina 10/14/13 Unknown Rx tablet pain #25 tabs albuterol sulfate 90 mcg/actuation 6.7 g inhalation Q4H PRN COPD 07/22/16 12/02/22 History aerosol inhaler hydroxyzine HCl 50 mg tablet 50 mg PO QHS sleep 03/14/17 06/13/24 History losartan 50 mg tablet 50 mg PO DAILY blood pressure 02/01/18 06/14/24 History trazodone 50 mg tablet 50 mg PO QHS sleep 02/25/20 06/13/24 History carvedilol 6.25 mg tablet 6.25 mg PO BID blood pressure 05/31/20 06/14/24 History umeclidinium 62.5 mcg-vilanterol 1 puff PO DAILY COPD 05/31/20 06/14/24 History 25 mcg/actuation powdr for inhalation ezetimibe 10 mg tablet 10 mg PO DAILY Cholesterol 01/03/22 06/14/24 History rivaroxaban 20 mg tablet (Xarelto) 20 mg PO DAILY hx- DVT 01/03/22 06/14/24 History allopurinol 100 mg tablet 100 mg PO BID GOUT 03/06/22 06/14/24 History linaclotide 145 mcg capsule 145 mcg PO DAILY 03/07/23 06/14/24 History (Linzess) dapagliflozin propanediol 5 mg 5 mg PO DAILY 07/13/23 06/14/24 History tablet (Farxiga) levocetirizine 5 mg tablet 5 mg PO DAILY itch 06/14/24 06/14/24 History oxycodone 5 mg tablet 5 mg PO Q6H pain 06/14/24 Unknown History dulaglutide 0.75 mg/0.5 mL 0.75 mg subcut QWEEK blood sugar 06/17/24 Unknown History subcutaneous pen injector (Trulicity) furosemide 40 mg tablet 40 mg PO BIDCM diuretic #60 tabs 06/17/24 Unknown Rx insulin glargine 100 unit/mL (3 60 unit (0.6 mL) subcut 2XD 06/17/24 06/14/24 Rx mL) subcutaneous pen (Lantus Diabetes #15 mL Solostar U-100 Insulin) insulin lispro 100 unit/mL 30 unit (0.3 mL) subcut 3XD 06/17/24 06/14/24 Rx subcutaneous pen (Humalog KwikPen diabetes #15 mL (U-100) Insulin) paroxetine HCl 20 mg tablet (Paxil) 20 mg PO DAILY #60 tabs 06/17/24 Unknown Rx Allergy/AdvReac Type Severity Reaction Status Date / Time No Known Allergies Allergy Verified 08/26/24 11:34 Family History Father CAD (coronary artery disease) Diabetes Colon cancer Heart disease Hypertension Brother CAD (coronary artery disease) Diabetes Kidney disease Mother Cancer Leukemia Brother Diabetes Surgical History Amputated toe of left foot History of cholecystectomy History of implantable cardiac defibrillator (ICD) (02/07/18) History of left heart catheterization (10/13/13) History of coronary artery stent placement (02/27/05) H/O coronary artery bypass surgery (04/18/99) Hx of cataract extraction Social History household members: none housing: house Smoking Status: Former smoker pack-years: 39 second hand exposure: No alcohol intake: former substance use type: does not use caffeine: Yes (1/day) what type of physical activity do you participate in: none ROS ROS ED ROS Narrative Review of systems positive for feeling feverish with chills. Generalized malaise and fatigue and generalized weakness. Toes on left foot there remain started bleeding with history of ulcer. EXAM Physical Exam Narrative Exam Narrative: Afebrile. Vital signs noted. Nontoxic-appearing. Does have slightly elevated temperature of 99.2 ?F. Cardiovascular examination reveals regular rate and rhythm. Lungs are clear to auscultation bilaterally. Abdomen soft, nontender, with positive bowel sounds. No guarding or rebound. He is awake, and alert. Inspection of the left lower extremity does show an ulcer on the remaining toe, third digit without active bleeding. There is dried blood diffusely on the toes. Positive soft tissue swelling without crepitance on dorsum of left foot at the base of the remaining toes. Const Vital Signs: 08/26/24 11:29 08/26/24 11:32 08/26/24 12:03 Temperature 99.2 F H 99.2 F H Temperature Source Oral Oral Pulse Rate 79 81 Respiratory Rate 23 H 23 H Respiratory Effort Respiratory Pattern Blood Pressure 112/56 L 112/56 L Blood Pressure Mean 74 74 Pulse Ox 96 93 98 Oxygen Delivery Method Room Air Room Air Room Air 08/26/24 12:32 08/26/24 13:00 08/26/24 13:56 Temperature 99.2 F H 99 F 99 F Temperature Source Oral Oral Pulse Rate 78 80 80 Respiratory Rate 18 18 18 Respiratory Effort Respiratory Pattern Blood Pressure 116/78 100/85 H 100/85 H Blood Pressure Mean 90 90 90 Pulse Ox 98 99 99 Oxygen Delivery Method Room Air Room Air 08/26/24 13:57 08/26/24 14:00 Temperature 999 F H Temperature Source Oral Pulse Rate 87 Respiratory Rate 18 Respiratory Effort Normal Non-Labored Respiratory Pattern Normal Blood Pressure 100/86 H Blood Pressure Mean 90 Pulse Ox 99 Oxygen Delivery Method Room Air MDM MDM MDM Narrative Medical decision making narrative: Differential diagnosis includes but not limited to dehydration versus other electrolyte abnormality for his generalized weakness versus cellulitis versus necrotizing fasciitis versus infected diabetic foot ulcer of left toe. I have low suspicion for necrotizing fasciitis based on his examination. Sepsis workup was pursued. I reviewed his laboratory work and he has a normal white count of 8.8 with hemoglobin 15.4, hematocrit 45.8, platelet count 164. INR slightly elevated at 2.4. However he is not on Coumadin but does take Xarelto for history of DVT. Review of his electrolyte panel shows chloride low at 96 but normal sodium of 134, potassium normal at 4.0, glucose elevated at 173 with anion gap normal at 13 so I doubt diabetic ketoacidosis. Mild dehydration with a BUN of 29 and creatinine 1.23. LFTs are grossly unremarkable. Chest x-ray in 1 view interpreted by myself shows no consolidation, no pneumonia or pneumothorax. There is cardiomegaly. No evidence of heart failure. I reviewed the radiology report which confirms my independent interpretation. Lactic acid is normal at 1.9 so I doubt sepsis. Blood cultures are pending. Given his debility and possibility of infected diabetic foot ulcer, he will be started on antibiotics and admitted. I reviewed his urinalysis which is negative for infection. I discussed the patient with Dr. Lindsay for admission. He ordered a bolus of lactated Ringer's because of borderline systolic blood pressure of 100. Disposition is admitted in stable condition. History & Record Review Discussion w/independent historian: Patient Lab Data Attestation: I reviewed the patient's lab results. Labs: Laboratory Results - last 24 hr 08/26/24 08/26/24 08/26/24 11:31 11:35 11:50 WBC 8.8 RBC 5.45 Hgb 15.4 Hct 45.8 MCV 84.0 MCH 28.3 MCHC 33.6 RDW Std Deviation 51.7 H RDW Coeff of Eula 17.2 H Plt Count 164 MPV 11.0 Immature Gran % (Auto) 0.700 Neut % (Auto) 73.3 H Lymph % (Auto) 15.8 L [place] % (Auto) 9.7 Eos % (Auto) 0.2 Baso % (Auto) 0.3 Absolute Neuts (auto) 6.4 Absolute Lymphs (auto) 1.38 Nucleated RBC % 0 PT 26.9 H INR 2.4 APTT 44.2 H Sodium 134 Potassium 4.0 Chloride 96 L Carbon Dioxide 24.7 Anion Gap 13 BUN 29 H Creatinine 1.23 H Estim Creat Clear Calc 74.52 Est GFR (MDRD) Non-Af 63 BUN/Creatinine Ratio 23.7 H Glucose 173 H Lactic Acid 1.9 Calcium 9.2 Total Bilirubin 1.06 AST 22 ALT 12 Alkaline Phosphatase 129 Total Protein 7.3 Albumin 3.7 Globulin 3.6 Albumin/Globulin Ratio 1.0 Urine Color Urine Clarity Urine pH Ur Specific [place] Urine Protein Urine Glucose (UA) Urine Ketones Urine Occult Blood Urine Nitrite Urine Bilirubin Urine Urobilinogen Ur Leukocyte Esterase Urine RBC Urine WBC Ur Squamous Epith Cells Urine Bacteria Urine Mucus 08/26/24 13:07 WBC RBC Hgb Hct MCV MCH MCHC RDW Std Deviation RDW Coeff of Eula Plt Count MPV Immature Gran % (Auto) Neut % (Auto) Lymph % (Auto) [place] % (Auto) Eos % (Auto) Baso % (Auto) Absolute Neuts (auto) Absolute Lymphs (auto) Nucleated RBC % PT INR APTT Sodium Potassium Chloride Carbon Dioxide Anion Gap BUN Creatinine Estim Creat Clear Calc Est GFR (MDRD) Non-Af BUN/Creatinine Ratio Glucose Lactic Acid Calcium Total Bilirubin AST ALT Alkaline Phosphatase Total Protein Albumin Globulin Albumin/Globulin Ratio Urine Color Yellow Urine Clarity Clear Urine pH 6.0 Ur Specific [place] 1.010 Urine Protein 15 H Urine Glucose (UA) 1000 H Urine Ketones Negative Urine Occult Blood 25 H Urine Nitrite Negative Urine Bilirubin Negative Urine Urobilinogen Normal Ur Leukocyte Esterase Negative Urine RBC 0 SEEN Urine WBC 0 SEEN Ur Squamous Epith Cells 0 SEEN Urine Bacteria 0 SEEN Urine Mucus 0 SEEN Radiography Diagnostic Testing: Clinical Impression(s) from Imaging Studies Foot X-Ray 08/26/24 11:45 IMPRESSION: Status post amputation of the great toe as well as the middle and distal phalanges of the 2nd toe and partial resection of the proximal phalanx of the 2nd toe. Soft tissue swelling and erosive change overlying the distal portion of the proximal phalanx of the 3rd toe. Prior resection of the middle and distal phalanges of the 3rd toe. Soft tissue swelling. Reading Location: [facility] Chest X-Ray 08/26/24 12:00 IMPRESSION: Cardiomegaly without overt failure. Reading Location: [facility] Discharge Plan Dx/Rx/DC Orders Clinical Impression: Diabetes mellitus type 2, controlled, with complications, Diabetic neuropathy associated with type 2 diabetes mellitus, Debility, Diabetic foot ulcer, Generalized weakness Disposition Disposition: Acute Care Hospital [facility]
[2024-08-26] MEDS: Piperacil/Tazobactam 4.5 GM in 0.9% Normal Saline (100mL MB+) 100 ML IV (13:51)
--- NOTE | 2024-08-26 14:20 | CASEMGMT ---
Care Management Face to Face with patient for initial transition planning/care coordination assessment in the ED.? This food writer introduced self and role at [facility]. Patient alert and oriented. Patient willing to participate in assessment and is able to answer all questions appropriately.? Care providers, pharmacy, and demographics verified. Admitting Diagnosis: Debility Other diagnosis history: ?Type 2 diabetes, BRENNAN, hypertension, COPD, DVT PCP: ?Jose Specialists: Peacock, vascular, Kayla, technical manager chemical plant, Suppan, Unit Director Preferred Pharmacy: [facility]? Insurance: ?[employer] [facility] Prescription Benefit: ?yes Living Will/HPOA: ?Both completed and on file LNOK: Daughters Living Arrangements: ?patient lives alone in a mobile home.? 3 steps to enter.? Reports increased weakness, 10+ falls in last 5 days, decreased intake, general inability to care for self properly.? Transportation: ?Patient drives, daughters and friend will also provide transportation DME: ?raised toilet seat, walker, crutches, grab bars, wheelchair, glucometer HHC: ?Has used [facility] in past SNF/Rehab: ?[facility] after amputation Community Resources: ?None Behavioral Health History: ?Denies Patient goals: Patient wishes to go to SNF for rehab stay. Prefers [facility]. Disposition Plan: admission to acute; RN CM/SW to follow for discharge planning needs that may arise. Fozia Hooker, MEDICAL RECORDS MANAGER, BRADDER
--- NOTE | 2024-08-26 14:20 | CASEMGMT ---
Care Management Face to Face with patient for initial transition planning/care coordination assessment in the ED.? This policy writer sales introduced self and role at [facility]. Patient alert and oriented. Patient willing to participate in assessment and is able to answer all questions appropriately.? Care providers, pharmacy, and demographics verified. Admitting Diagnosis: Debility Other diagnosis history: ?Type 2 diabetes, BRENNAN, hypertension, COPD, DVT PCP: ?Jose Specialists: Peacock, vascular, Kayla, industrial millwright, Suppan, Service Person Preferred Pharmacy: [facility]? Insurance: ?Humana [facility] Prescription Benefit: ?yes Living Will/HPOA: ?Both completed and on file LNOK: Daughters Living Arrangements: ?patient lives alone in a mobile home.? 3 steps to enter.? Reports increased weakness, 10+ falls in last 5 days, decreased intake, general inability to care for self properly.? Transportation: ?Patient drives, daughters and friend will also provide transportation DME: ?raised toilet seat, walker, crutches, grab bars, wheelchair, glucometer HHC: ?Has used [facility] in past SNF/Rehab: ?[facility] month stay after amputation Community Resources: ?None Behavioral Health History: ?Denies Patient goals: Patient wishes to go to SNF for rehab stay. Pref[facility]. Disposition Plan: admission to acute; RN CM/SW to follow for discharge planning needs that may arise. Fozia Hooker, TURNAROUND ENGINEER, PACKAGE DESIGNER
[2024-08-26] MEDS: Vancomycin HCl 2,000 MG in 0.9% Normal Saline (500mL Bag) 500 ML 250 MG IV (14:28)
--- NOTE | 2024-08-26 14:53 | PCM.HP.STD ---
HPI - General General Date of Admission: 08/26/24 Date of Service: 08/26/24 Chief Complaint: Fever and bloody discharge from left third toe for 6 days HPI Narrative PETE ORTIZ, is a 69 M with multiple comorbidities came to ED for fever and chill for 6 days along with generalized weakness and multiple falls. Patient has wound on the left third toe with bloody discharge for 3-4 days along with swelling. He does not have pain because of diabetic neuropathy bilateral legs below knee levels. He did not check his temperature at home. He has been also following about 1/day and using walker for last 1 day. He usually he does not use any walking support. His last left first 2 toes and distal 3rd toe amputation was about 2 years ago. 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 In ED, mild temperature Tmax 99.5 Fahrenheit, BP on lower side 100/85, 97/51, rate in 70s with tachypnea but no hypoxia. Patient has history of chronic HFrEF, CAD status post bypass and NC/stent last 2011, peripheral artery disease. Social history: Quit smoking in in 2011. Smoking history a pack per day since age of 16. Alcohol quit in 1986 was drinking same age 16. Denies substance use. [facility] Medical History Anxiety Diabetes Arthritis with psoriasis Former smoker Asthma ICD (implantable cardioverter-defibrillator) in place Pacemaker Congestive heart failure (CHF) Myocardial infarct Coronary artery disease Hypertension Abnormal lead impedance of implantable cardioverter-defibrillator Clostridioides difficile infection Hyperglycemia due to type 2 diabetes mellitus Acute kidney injury Gout of right knee Pseudogout of right knee Effusion, right knee Right knee pain Constipation Claudication Essential (primary) hypertension History of non-ST elevation myocardial infarction (NSTEMI) (10/11/13) NSVT (nonsustained ventricular tachycardia) Obesity Secondary pulmonary arterial hypertension Pulmonary embolism (09/2013) COPD (chronic obstructive pulmonary disease) Chronic kidney disease Type 2 diabetes mellitus Old inferior wall myocardial infarction (02/27/05) DVT (deep venous thrombosis) IBS (irritable bowel syndrome) Ischemic cardiomyopathy Atherosclerosis of [place] coronary artery of [place] heart without angina pectoris Hyperlipidemia Home Medications ?Medication ?Instructions ?Recorded ?Last Taken ?Type atorvastatin 80 mg tablet 80 mg PO DAILY cholesterol 10/05/13 06/13/24 History nitroglycerin 0.4 mg sublingual 0.4 mg sublingual Q5M PRN Angina 10/14/13 Unknown Rx tablet pain #25 tabs albuterol sulfate 90 mcg/actuation 6.7 g inhalation Q4H PRN COPD 07/22/16 12/02/22 History aerosol inhaler hydroxyzine HCl 50 mg tablet 50 mg PO QHS sleep 03/14/17 06/13/24 History losartan 50 mg tablet 50 mg PO DAILY blood pressure 02/01/18 06/14/24 History trazodone 50 mg tablet 50 mg PO QHS sleep 02/25/20 06/13/24 History carvedilol 6.25 mg tablet 6.25 mg PO BID blood pressure 05/31/20 06/14/24 History umeclidinium 62.5 mcg-vilanterol 1 puff PO DAILY COPD 05/31/20 06/14/24 History 25 mcg/actuation powdr for inhalation ezetimibe 10 mg tablet 10 mg PO DAILY Cholesterol 01/03/22 06/14/24 History rivaroxaban 20 mg tablet (Xarelto) 20 mg PO DAILY hx- DVT 01/03/22 06/14/24 History allopurinol 100 mg tablet 100 mg PO BID GOUT 03/06/22 06/14/24 History linaclotide 145 mcg capsule 145 mcg PO DAILY 03/07/23 06/14/24 History (Linzess) dapagliflozin propanediol 5 mg 5 mg PO DAILY 07/13/23 06/14/24 History tablet (Farxiga) levocetirizine 5 mg tablet 5 mg PO DAILY itch 06/14/24 06/14/24 History oxycodone 5 mg tablet 5 mg PO Q6H pain 06/14/24 Unknown History dulaglutide 0.75 mg/0.5 mL 0.75 mg subcut QWEEK blood sugar 06/17/24 Unknown History subcutaneous pen injector (Trulicity) furosemide 40 mg tablet 40 mg PO BIDCM diuretic #60 tabs 06/17/24 Unknown Rx insulin glargine 100 unit/mL (3 60 unit (0.6 mL) subcut 2XD 06/17/24 06/14/24 Rx mL) subcutaneous pen (Lantus Diabetes #15 mL Solostar U-100 Insulin) insulin lispro 100 unit/mL 30 unit (0.3 mL) subcut 3XD 06/17/24 06/14/24 Rx subcutaneous pen (Humalog KwikPen diabetes #15 mL (U-100) Insulin) paroxetine HCl 20 mg tablet (Paxil) 20 mg PO DAILY #60 tabs 06/17/24 Unknown Rx Allergy/AdvReac Type Severity Reaction Status Date / Time No Known Allergies Allergy Verified 08/26/24 11:34 Family History Father CAD (coronary artery disease) Diabetes Colon cancer Heart disease Hypertension Brother CAD (coronary artery disease) Diabetes Kidney disease Mother Cancer Leukemia Brother Diabetes Surgical History Amputated toe of left foot History of cholecystectomy History of implantable cardiac defibrillator (ICD) (02/07/18) History of left heart catheterization (10/13/13) History of coronary artery stent placement (02/27/05) H/O coronary artery bypass surgery (04/18/99) Hx of cataract extraction Social History household members: none housing: house Smoking Status: Former smoker pack-years: 39 second hand exposure: No alcohol intake: former substance use type: does not use caffeine: Yes (1/day) what type of physical activity do you participate in: none ROS ROS Narrative Constitutional: Reports acute onset of fatigue and weakness. Fever as described in HPI HEENT: Reports systems reviewed and no addt'l complaints, except as documented Respiratory/Chest: No acute shortness of breath or respiratory distress or wheezing. CVS: No chest pain/dyspnea. PAD Gastrointestinal: Denies coffee ground emesis, hematemesis or vomiting Genitourinary: Denies burning urination or new urinary tract symptoms Musculoskeletal: As described in HPI. Recurrent fall. Neurologic: Denies seizure-like symptoms. Diabetic neuropathy skin: As described in HPI. Right foot ulcer Endocrinology: DM type II, reports systems reviewed and no addt'l complaints, except as documented Hematologic/Lymphatic: Reports systems reviewed and no addt'l complaints, except as documented Rest 14 ROS are negative except as mentioned in HPI Vital Signs Vital Signs Vital Signs: 08/26/24 11:29 08/26/24 11:32 08/26/24 12:03 Temperature 99.2 F H 99.2 F H Temperature Source Oral Oral Pulse Rate 79 81 Respiratory Rate 23 H 23 H Respiratory Effort Respiratory Pattern Blood Pressure 112/56 L 112/56 L Blood Pressure Mean 74 74 Pulse Ox 96 93 98 Oxygen Delivery Method Room Air Room Air Room Air 08/26/24 12:32 08/26/24 13:00 08/26/24 13:56 Temperature 99.2 F H 99 F 99 F Temperature Source Oral Oral Pulse Rate 78 80 80 Respiratory Rate 18 18 18 Respiratory Effort Respiratory Pattern Blood Pressure 116/78 100/85 H 100/85 H Blood Pressure Mean 90 90 90 Pulse Ox 98 99 99 Oxygen Delivery Method Room Air Room Air 08/26/24 13:57 08/26/24 14:00 Temperature 999 F H Temperature Source Oral Pulse Rate 87 Respiratory Rate 18 Respiratory Effort Normal Non-Labored Respiratory Pattern Normal Blood Pressure 100/86 H Blood Pressure Mean 90 Pulse Ox 99 Oxygen Delivery Method Room Air Weight Weight: 240 lb 1.334 oz Body Mass Index (BMI) 29.2 Physical Exam Narrative General: Alert, Oriented x3, Cooperative. BMI 29.2 kg/m? HEENT: Atraumatic, PERRLA, EOMI, Normocephalic. Oral: Oral mucosa dry. No Gingival or Mucosal Lesions/ Ulcerations Neck: Supple, No JVD, Negative Carotid Bruits Chest wall/Lungs: Air entry diminished in bilateral lung bases. No crepitation/rhonchi Cardiovascular: Regular rate and rhythm, No M/G/R. Bilateral decreased pulsation in DPA. Bilateral ALLERGIST/PEDIATRIC PULMONOLOGIST normal. Abdomen: Bowel Sounds Present, Soft, Non Tender, Non-Distended : No dysuria. No renal angle tenderness. No suprapubic tenderness. Extremities: left foot dependent edema, Capillary Refill Less than 3 Seconds Skin: left third toe swollen, erythematous/redness with clotted blood at the tip. Status post left 1st and 2nd toe amputation and right third distal amputation. No tenderness. Musculoskeletal: No Tenderness to Palpation of Joints or Extremities. Neurological: Cranial nerves II-XII grossly intact, DTR 2+/4. Chronic decreased gross sensation in bilateral legs below knee level Psych/Mental Status: Flat affect Results Lab / Micro Data 08/26/24 11:50 08/26/24 11:31 Labs: Laboratory Results - last 24 hr 08/26/24 11:31: Sodium 134, Potassium 4.0, Chloride 96 L, Carbon Dioxide 24.7, Anion Gap 13, BUN 29 H, Creatinine 1.23 H, Estim Creat Clear Calc 74.52, Est GFR (MDRD) Non-Af 63, BUN/Creatinine Ratio 23.7 H, Glucose 173 H, Lactic Acid 1.9, Calcium 9.2, Total Bilirubin 1.06, AST 22, ALT 12, Alkaline Phosphatase 129, Total Protein 7.3, Albumin 3.7, Globulin 3.6, Albumin/Globulin Ratio 1.0 08/26/24 11:35: PT 26.9 H, INR 2.4, APTT 44.2 H 08/26/24 11:50: WBC 8.8, RBC 5.45, Hgb 15.4, Hct 45.8, MCV 84.0, MCH 28.3, MCHC 33.6, RDW Std Deviation 51.7 H, RDW Coeff of [place] 17.2 H, Plt Count 164, MPV 11.0, Immature Gran % (Auto) 0.700, Neut % (Auto) 73.3 H, Lymph % (Auto) 15.8 L, [place] % (Auto) 9.7, Eos % (Auto) 0.2, Baso % (Auto) 0.3, Absolute Neuts (auto) 6.4, Absolute Lymphs (auto) 1.38, Nucleated RBC % 0 08/26/24 13:07: Urine Color Yellow, Urine Clarity Clear, Urine pH 6.0, Ur Specific [place] 1.010, Urine Protein 15 H, Urine Glucose (UA) 1000 H, Urine Ketones Negative, Urine Occult Blood 25 H, Urine Nitrite Negative, Urine Bilirubin Negative, Urine Urobilinogen Normal, Ur Leukocyte Esterase Negative, Urine RBC 0 SEEN, Urine WBC 0 SEEN, Ur Squamous Epith Cells 0 SEEN, Urine Bacteria 0 SEEN, Urine Mucus 0 SEEN Imaging Radiology Impression Foot X-Ray 08/26/24 11:45 IMPRESSION: Status post amputation of the great toe as well as the middle and distal phalanges of the 2nd toe and partial resection of the proximal phalanx of the 2nd toe. Soft tissue swelling and erosive change overlying the distal portion of the proximal phalanx of the 3rd toe. Prior resection of the middle and distal phalanges of the 3rd toe. Soft tissue swelling. Reading Location: [facility] Chest X-Ray 08/26/24 12:00 IMPRESSION: Cardiomegaly without overt failure. Reading Location: [facility] Assessment & Plan Assessment/Plan (1) Diabetic foot ulcer: PLAN: Plan This 69-year-old gentleman being admitted for left third toe diabetic foot ulcer and fever for 6 days. 1. SIRS (fever, tachypnea), due to left foot infection with contiguous left foot cellulitis probably due to polymicrobial organism: Patient does not have lactic acid and BP not below systolic 90 yet but dropped from baseline 124/69-97/51. Patient does not meet criteria of severe sepsis as per SEP 1 criteria or sepsis sep3 criteria. Lactic acid normal. IV fluid Ringer lactate 2 L bolus. Patient is being admitted to PCU. Started on IV vancomycin and Zosyn. Line Tender, Dr. Monteiro consult. ESR and CRP ordered. Foot x-ray shows soft tissue swelling and erosive changes overlying distal portion of proximal phalanx of third toe with prior resection of middle and distal phalanges of third toe. 2. DM type II complicated with diabetic neuropathy: Accu-Chek before meals and at bedtime with Humalog sliding scale coverage and hypoglycemia protocol.. A1c ordered for tomorrow a.m. 3. Chronic HFrEF, CAD s/p cardiac stent and CABG, bilateral PAD status post femoral stent, history of polymorphic VT status post AICD: Patient was last admitted in May 2024 for acute on chronic HFrEF. He also had right femoral stent about 10 months ago and left stent about [address] Peacock. During last admission, his furosemide dose was doubled. Chest x-ray daily reviewed and shows no features of overt heart failure. Cardiomegaly. Currently patient does not have features of acute acute heart failure but he is dehydrated therefore IV fluid. Continue his heart medications including Xarelto. Last echo in May 2024 interpretation Summary The estimated ejection fraction is 45 %. Inferolateral and basal septal hypokinesis Mild (1+) mitral valve insufficiency. Mild (1+) aortic valve insufficiency. 4. Hypertension: As mentioned above BP on lower side therefore hold antihypertensive medications 5. Dyslipidemia -Patient is on statin therapy, continued at home dose 6. Gout ? Patient is on allopurinol continue 7. 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 Patient is on Xarelto, continue 8. COPD, not in exacerbation, active smoker. DuoNeb as needed. Patient quit smoking in 1986. 9. Irritable bowel syndrome: Hold Linzess as nonformulary. 10. DVT prophylaxis, high risk with history of DVT in the past ? Already on Xarelto Living will/advanced directive/end of life care: Patient does have living will or advanced directive. He stated he has a daughter with nurse practitioner and she is power of decorator mannequin for health. After discussion of benefits/risks procedures involved with full code, DNR CC arrest and DNR CC, the patient opted for DNR CC arrest with no intubation Patient doesn't want artificial life support including intubation, tube feed, ventilator and/chest compression, central venous catheter, vasopressor and DC shock if needed Total time spent in [id number] encounter in discussion of advanced directive 17 minutes. Laboratory Results 08/26/24 11:31: Sodium 134, Potassium 4.0, Chloride 96 L, Carbon Dioxide 24.7, Anion Gap 13, BUN 29 H, Creatinine 1.23 H, Estim Creat Clear Calc 74.52, Est GFR (MDRD) Non-Af 63, BUN/Creatinine Ratio 23.7 H, Glucose 173 H, Lactic Acid 1.9, Calcium 9.2, Total Bilirubin 1.06, AST 22, ALT 12, Alkaline Phosphatase 129, Total Protein 7.3, Albumin 3.7, Globulin 3.6, Albumin/Globulin Ratio 1.0 08/26/24 11:35: PT 26.9 H, INR 2.4, APTT 44.2 H 08/26/24 11:50: WBC 8.8, RBC 5.45, Hgb 15.4, Hct 45.8, MCV 84.0, MCH 28.3, MCHC 33.6, RDW Std Deviation 51.7 H, RDW Coeff of [place] 17.2 H, Plt Count 164, MPV 11.0, Immature Gran % (Auto) 0.700, Neut % (Auto) 73.3 H, Lymph % (Auto) 15.8 L, [place] % (Auto) 9.7, Eos % (Auto) 0.2, Baso % (Auto) 0.3, Absolute Neuts (auto) 6.4, Absolute Lymphs (auto) 1.38, Nucleated RBC % 0 08/26/24 13:07: Urine Color Yellow, Urine Clarity Clear, Urine pH 6.0, Ur Specific [place] 1.010, Urine Protein 15 H, Urine Glucose (UA) 1000 H, Urine Ketones Negative, Urine Occult Blood 25 H, Urine Nitrite Negative, Urine Bilirubin Negative, Urine Urobilinogen Normal, Ur Leukocyte Esterase Negative, Urine RBC 0 SEEN, Urine WBC 0 SEEN, Ur Squamous Epith Cells 0 SEEN, Urine Bacteria 0 SEEN, Urine Mucus 0 SEEN Clinical Impression(s) from Imaging Studies Foot X-Ray 08/26/24 11:45 IMPRESSION: Status post amputation of the great toe as well as the middle and distal phalanges of the 2nd toe and partial resection of the proximal phalanx of the 2nd toe. Soft tissue swelling and erosive change overlying the distal portion of the proximal phalanx of the 3rd toe. Prior resection of the middle and distal phalanges of the 3rd toe. Soft tissue swelling. Reading Location: [facility] Chest X-Ray 08/26/24 12:00 IMPRESSION: Cardiomegaly without overt failure. Reading [facility] Charges/Coding Visit Charges Inpatient E&M: 86062 Disch Hosp >30min Procedures Hospitalists Procedures: 18380 Advncd Care Plan 30 Min
--- NOTE | 2024-08-26 14:53 | PCM.HP.STD ---
HPI - General General Date of Admission: 08/26/24 Date of Service: 08/26/24 Chief Complaint: Fever and bloody discharge from left third toe for 6 days HPI Narrative PETE ORTIZ, is a 69 M with multiple comorbidities came to ED for fever and chill for 6 days along with generalized weakness and multiple falls. Patient has wound on the left third toe with bloody discharge for 3-4 days along with swelling. He does not have pain because of diabetic neuropathy bilateral legs below knee levels. He did not check his temperature at home. He has been also following about 1/day and using walker for last 1 day. He usually he does not use any walking support. His last left first 2 toes and distal 3rd toe amputation was about 2 years ago. 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 In ED, mild temperature Tmax 99.5 Fahrenheit, BP on lower side 100/85, 97/51, rate in 70s with tachypnea but no hypoxia. Patient has history of chronic HFrEF, CAD status post bypass and AL/stent last 2011, peripheral artery disease. Social history: Quit smoking in in 2011. Smoking history a pack per day since age of 16. Alcohol quit in 1986 was drinking same age 16. Denies substance use. [facility] Medical History Anxiety Diabetes Arthritis with psoriasis Former smoker Asthma ICD (implantable cardioverter-defibrillator) in place Pacemaker Congestive heart failure (CHF) Myocardial infarct Coronary artery disease Hypertension Abnormal lead impedance of implantable cardioverter-defibrillator Clostridioides difficile infection Hyperglycemia due to type 2 diabetes mellitus Acute kidney injury Gout of right knee Pseudogout of right knee Effusion, right knee Right knee pain Constipation Claudication Essential (primary) hypertension History of non-ST elevation myocardial infarction (NSTEMI) (10/11/13) NSVT (nonsustained ventricular tachycardia) Obesity Secondary pulmonary arterial hypertension Pulmonary embolism (09/2013) COPD (chronic obstructive pulmonary disease) Chronic kidney disease Type 2 diabetes mellitus Old inferior wall myocardial infarction (02/27/05) DVT (deep venous thrombosis) IBS (irritable bowel syndrome) Ischemic cardiomyopathy Atherosclerosis of [place] coronary artery of [place] heart without angina pectoris Hyperlipidemia Home Medications ?Medication ?Instructions ?Recorded ?Last Taken ?Type atorvastatin 80 mg tablet 80 mg PO DAILY cholesterol 10/05/13 06/13/24 History nitroglycerin 0.4 mg sublingual 0.4 mg sublingual Q5M PRN Angina 10/14/13 Unknown Rx tablet pain #25 tabs albuterol sulfate 90 mcg/actuation 6.7 g inhalation Q4H PRN COPD 07/22/16 12/02/22 History aerosol inhaler hydroxyzine HCl 50 mg tablet 50 mg PO QHS sleep 03/14/17 06/13/24 History losartan 50 mg tablet 50 mg PO DAILY blood pressure 02/01/18 06/14/24 History trazodone 50 mg tablet 50 mg PO QHS sleep 02/25/20 06/13/24 History carvedilol 6.25 mg tablet 6.25 mg PO BID blood pressure 05/31/20 06/14/24 History umeclidinium 62.5 mcg-vilanterol 1 puff PO DAILY COPD 05/31/20 06/14/24 History 25 mcg/actuation powdr for inhalation ezetimibe 10 mg tablet 10 mg PO DAILY Cholesterol 01/03/22 06/14/24 History rivaroxaban 20 mg tablet (Xarelto) 20 mg PO DAILY hx- DVT 01/03/22 06/14/24 History allopurinol 100 mg tablet 100 mg PO BID GOUT 03/06/22 06/14/24 History linaclotide 145 mcg capsule 145 mcg PO DAILY 03/07/23 06/14/24 History (Linzess) dapagliflozin propanediol 5 mg 5 mg PO DAILY 07/13/23 06/14/24 History tablet (Farxiga) levocetirizine 5 mg tablet 5 mg PO DAILY itch 06/14/24 06/14/24 History oxycodone 5 mg tablet 5 mg PO Q6H pain 06/14/24 Unknown History dulaglutide 0.75 mg/0.5 mL 0.75 mg subcut QWEEK blood sugar 06/17/24 Unknown History subcutaneous pen injector (Trulicity) furosemide 40 mg tablet 40 mg PO BIDCM diuretic #60 tabs 06/17/24 Unknown Rx insulin glargine 100 unit/mL (3 60 unit (0.6 mL) subcut 2XD 06/17/24 06/14/24 Rx mL) subcutaneous pen (Lantus Diabetes #15 mL Solostar U-100 Insulin) insulin lispro 100 unit/mL 30 unit (0.3 mL) subcut 3XD 06/17/24 06/14/24 Rx subcutaneous pen (Humalog KwikPen diabetes #15 mL (U-100) Insulin) paroxetine HCl 20 mg tablet (Paxil) 20 mg PO DAILY #60 tabs 06/17/24 Unknown Rx Allergy/AdvReac Type Severity Reaction Status Date / Time No Known Allergies Allergy Verified 08/26/24 11:34 Family History Father CAD (coronary artery disease) Diabetes Colon cancer Heart disease Hypertension Brother CAD (coronary artery disease) Diabetes Kidney disease Mother Cancer Leukemia Brother Diabetes Surgical History Amputated toe of left foot History of cholecystectomy History of implantable cardiac defibrillator (ICD) (02/07/18) History of left heart catheterization (10/13/13) History of coronary artery stent placement (02/27/05) H/O coronary artery bypass surgery (04/18/99) Hx of cataract extraction Social History household members: none housing: house Smoking Status: Former smoker pack-years: 39 second hand exposure: No alcohol intake: former substance use type: does not use caffeine: Yes (1/day) what type of physical activity do you participate in: none ROS ROS Narrative Constitutional: Reports acute onset of fatigue and weakness. Fever as described in HPI HEENT: Reports systems reviewed and no addt'l complaints, except as documented Respiratory/Chest: No acute shortness of breath or respiratory distress or wheezing. CVS: No chest pain/dyspnea. PAD Gastrointestinal: Denies coffee ground emesis, hematemesis or vomiting Genitourinary: Denies burning urination or new urinary tract symptoms Musculoskeletal: As described in HPI. Recurrent fall. Neurologic: Denies seizure-like symptoms. Diabetic neuropathy skin: As described in HPI. Right foot ulcer Endocrinology: DM type II, reports systems reviewed and no addt'l complaints, except as documented Hematologic/Lymphatic: Reports systems reviewed and no addt'l complaints, except as documented Rest 14 ROS are negative except as mentioned in HPI Vital Signs Vital Signs Vital Signs: 08/26/24 11:29 08/26/24 11:32 08/26/24 12:03 Temperature 99.2 F H 99.2 F H Temperature Source Oral Oral Pulse Rate 79 81 Respiratory Rate 23 H 23 H Respiratory Effort Respiratory Pattern Blood Pressure 112/56 L 112/56 L Blood Pressure Mean 74 74 Pulse Ox 96 93 98 Oxygen Delivery Method Room Air Room Air Room Air 08/26/24 12:32 08/26/24 13:00 08/26/24 13:56 Temperature 99.2 F H 99 F 99 F Temperature Source Oral Oral Pulse Rate 78 80 80 Respiratory Rate 18 18 18 Respiratory Effort Respiratory Pattern Blood Pressure 116/78 100/85 H 100/85 H Blood Pressure Mean 90 90 90 Pulse Ox 98 99 99 Oxygen Delivery Method Room Air Room Air 08/26/24 13:57 08/26/24 14:00 Temperature 999 F H Temperature Source Oral Pulse Rate 87 Respiratory Rate 18 Respiratory Effort Normal Non-Labored Respiratory Pattern Normal Blood Pressure 100/86 H Blood Pressure Mean 90 Pulse Ox 99 Oxygen Delivery Method Room Air Weight Weight: 240 lb 1.334 oz Body Mass Index (BMI) 29.2 Physical Exam Narrative General: Alert, Oriented x3, Cooperative. BMI 29.2 kg/m? HEENT: Atraumatic, PERRLA, EOMI, Normocephalic. Oral: Oral mucosa dry. No Gingival or Mucosal Lesions/ Ulcerations Neck: Supple, No JVD, Negative Carotid Bruits Chest wall/Lungs: Air entry diminished in bilateral lung bases. No crepitation/rhonchi Cardiovascular: Regular rate and rhythm, No M/G/R. Bilateral decreased pulsation in DPA. 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 Abdomen: Bowel Sounds Present, Soft, Non Tender, Non-Distended : No dysuria. No renal angle tenderness. No suprapubic tenderness. Extremities: left foot dependent edema, Capillary Refill Less than 3 Seconds Skin: left third toe swollen, erythematous/redness with clotted blood at the tip. Status post left 1st and 2nd toe amputation and right third distal amputation. No tenderness. Musculoskeletal: No Tenderness to Palpation of Joints or Extremities. Neurological: Cranial nerves II-XII grossly intact, DTR 2+/4. Chronic decreased gross sensation in bilateral legs below knee level Psych/Mental Status: Flat affect Results Lab / Micro Data 08/26/24 11:50 08/26/24 11:31 Labs: Laboratory Results - last 24 hr 08/26/24 11:31: Sodium 134, Potassium 4.0, Chloride 96 L, Carbon Dioxide 24.7, Anion Gap 13, BUN 29 H, Creatinine 1.23 H, Estim Creat Clear Calc 74.52, Est GFR (MDRD) Non-Af 63, BUN/Creatinine Ratio 23.7 H, Glucose 173 H, Lactic Acid 1.9, Calcium 9.2, Total Bilirubin 1.06, AST 22, ALT 12, Alkaline Phosphatase 129, Total Protein 7.3, Albumin 3.7, Globulin 3.6, Albumin/Globulin Ratio 1.0 08/26/24 11:35: PT 26.9 H, INR 2.4, APTT 44.2 H 08/26/24 11:50: WBC 8.8, RBC 5.45, Hgb 15.4, Hct 45.8, MCV 84.0, MCH 28.3, MCHC 33.6, RDW Std Deviation 51.7 H, RDW Coeff of [place] 17.2 H, Plt Count 164, MPV 11.0, Immature Gran % (Auto) 0.700, Neut % (Auto) 73.3 H, Lymph % (Auto) 15.8 L, [place] % (Auto) 9.7, Eos % (Auto) 0.2, Baso % (Auto) 0.3, Absolute Neuts (auto) 6.4, Absolute Lymphs (auto) 1.38, Nucleated RBC % 0 08/26/24 13:07: Urine Color Yellow, Urine Clarity Clear, Urine pH 6.0, Ur Specific [place] 1.010, Urine Protein 15 H, Urine Glucose (UA) 1000 H, Urine Ketones Negative, Urine Occult Blood 25 H, Urine Nitrite Negative, Urine Bilirubin Negative, Urine Urobilinogen Normal, Ur Leukocyte Esterase Negative, Urine RBC 0 SEEN, Urine WBC 0 SEEN, Ur Squamous Epith Cells 0 SEEN, Urine Bacteria 0 SEEN, Urine Mucus 0 SEEN Imaging Radiology Impression Foot X-Ray 08/26/24 11:45 IMPRESSION: Status post amputation of the great toe as well as the middle and distal phalanges of the 2nd toe and partial resection of the proximal phalanx of the 2nd toe. Soft tissue swelling and erosive change overlying the distal portion of the proximal phalanx of the 3rd toe. Prior resection of the middle and distal phalanges of the 3rd toe. Soft tissue swelling. Reading Location: [facility] Chest X-Ray 08/26/24 12:00 IMPRESSION: Cardiomegaly without overt failure. Reading Location: [facility] Assessment & Plan Assessment/Plan (1) Diabetic foot ulcer: PLAN: Plan This 69-year-old gentleman being admitted for left third toe diabetic foot ulcer and fever for 6 days. 1. SIRS (fever, tachypnea), due to left foot infection with contiguous left foot cellulitis probably due to polymicrobial organism: Patient does not have lactic acid and BP not below systolic 90 yet but dropped from baseline 124/69-97/51. Patient does not meet criteria of severe sepsis as per SEP 1 criteria or sepsis sep3 criteria. Lactic acid normal. IV fluid Ringer lactate 2 L bolus. Patient is being admitted to PCU. Started on IV vancomycin and Zosyn. Appraisal Technician, Dr. Monteiro consult. ESR and CRP ordered. Foot x-ray shows soft tissue swelling and erosive changes overlying distal portion of proximal phalanx of third toe with prior resection of middle and distal phalanges of third toe. 2. DM type II complicated with diabetic neuropathy: Accu-Chek before meals and at bedtime with Humalog sliding scale coverage and hypoglycemia protocol.. A1c ordered for tomorrow a.m. 3. Chronic HFrEF, CAD s/p cardiac stent and CABG, bilateral PAD status post femoral stent, history of polymorphic VT status post AICD: Patient was last admitted in May 2024 for acute on chronic HFrEF. He also had right femoral stent about 10 months ago and left stent about [address] Peacock. During last admission, his furosemide dose was doubled. Chest x-ray daily reviewed and shows no features of overt heart failure. Cardiomegaly. Currently patient does not have features of acute acute heart failure but he is dehydrated therefore IV fluid. Continue his heart medications including Xarelto. Last echo in May 2024 interpretation Summary The estimated ejection fraction is 45 %. Inferolateral and basal septal hypokinesis Mild (1+) mitral valve insufficiency. Mild (1+) aortic valve insufficiency. 4. Hypertension: As mentioned above BP on lower side therefore hold antihypertensive medications 5. Dyslipidemia -Patient is on statin therapy, continued at home dose 6. Gout ? Patient is on allopurinol continue 7. 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 Patient is on Xarelto, continue 8. COPD, not in exacerbation, active smoker. DuoNeb as needed. Patient quit smoking in 1986. 9. Irritable bowel syndrome: Hold Linzess as nonformulary. 10. DVT prophylaxis, high risk with history of DVT in the past ? Already on Xarelto Living will/advanced directive/end of life care: Patient does have living will or advanced directive. He stated he has a daughter with nurse practitioner and she is power of attorney recruiter for health. After discussion of benefits/risks procedures involved with full code, DNR CC arrest and DNR CC, the patient opted for DNR CC arrest with no intubation Patient doesn't want artificial life support including intubation, tube feed, ventilator and/chest compression, central venous catheter, vasopressor and DC shock if needed Total time spent in [id number] encounter in discussion of advanced directive 17 minutes. Laboratory Results 08/26/24 11:31: Sodium 134, Potassium 4.0, Chloride 96 L, Carbon Dioxide 24.7, Anion Gap 13, BUN 29 H, Creatinine 1.23 H, Estim Creat Clear Calc 74.52, Est GFR (MDRD) Non-Af 63, BUN/Creatinine Ratio 23.7 H, Glucose 173 H, Lactic Acid 1.9, Calcium 9.2, Total Bilirubin 1.06, AST 22, ALT 12, Alkaline Phosphatase 129, Total Protein 7.3, Albumin 3.7, Globulin 3.6, Albumin/Globulin Ratio 1.0 08/26/24 11:35: PT 26.9 H, INR 2.4, APTT 44.2 H 08/26/24 11:50: WBC 8.8, RBC 5.45, Hgb 15.4, Hct 45.8, MCV 84.0, MCH 28.3, MCHC 33.6, RDW Std Deviation 51.7 H, RDW Coeff of [place] 17.2 H, Plt Count 164, MPV 11.0, Immature Gran % (Auto) 0.700, Neut % (Auto) 73.3 H, Lymph % (Auto) 15.8 L, [place] % (Auto) 9.7, Eos % (Auto) 0.2, Baso % (Auto) 0.3, Absolute Neuts (auto) 6.4, Absolute Lymphs (auto) 1.38, Nucleated RBC % 0 08/26/24 13:07: Urine Color Yellow, Urine Clarity Clear, Urine pH 6.0, Ur Specific [place] 1.010, Urine Protein 15 H, Urine Glucose (UA) 1000 H, Urine Ketones Negative, Urine Occult Blood 25 H, Urine Nitrite Negative, Urine Bilirubin Negative, Urine Urobilinogen Normal, Ur Leukocyte Esterase Negative, Urine RBC 0 SEEN, Urine WBC 0 SEEN, Ur Squamous Epith Cells 0 SEEN, Urine Bacteria 0 SEEN, Urine Mucus 0 SEEN Clinical Impression(s) from Imaging Studies Foot X-Ray 08/26/24 11:45 IMPRESSION: Status post amputation of the great toe as well as the middle and distal phalanges of the 2nd toe and partial resection of the proximal phalanx of the 2nd toe. Soft tissue swelling and erosive change overlying the distal portion of the proximal phalanx of the 3rd toe. Prior resection of the middle and distal phalanges of the 3rd toe. Soft tissue swelling. Reading Location: [facility] Chest X-Ray 08/26/24 12:00 IMPRESSION: Cardiomegaly without overt failure. Reading [facility] Charges/Coding Visit Charges Inpatient E&M: 91350 Disch Hosp >30min Procedures Hospitalists Procedures: 88428 Advncd Care Plan 30 Min
[2024-08-26] MEDS: Lactated Ringers 1,000 ML 999 ML IV (15:15)
--- NOTE | 2024-08-26 16:04 | PCM.RX.CS ---
Consult Antibiotic Management Pharmacy has been consulted to manage selected antibiotic: Vancomycin Type of Intervention Type of Consult: New start Suspected Infection Suspected Infection: Bacteremia Prior Doses of Antibiotics Prior Doses of Antibiotics Received/Current Regimen: 08/26/24 @ 1428 Vancomycin 2000mg x1 Labs Labs: Sodium 134 mmol/L (133-145) 08/26/24 11:31 Potassium 4.0 mmol/L (3.3-5.1) 08/26/24 11:31 Chloride 96 mmol/L (98-108) L 08/26/24 11:31 Carbon Dioxide 24.7 mmol/L (21.0-32.0) 08/26/24 11:31 Anion Gap 13 (5-15) 08/26/24 11:31 BUN 29 mg/dL (4-19) H 08/26/24 11:31 Creatinine 1.23 mg/dL (0.70-1.20) H 08/26/24 11:31 Est GFR (MDRD) Non-Af 63 (>60) 08/26/24 11:31 BUN/Creatinine Ratio 23.7 RATIO (10-20) H 08/26/24 11:31 Glucose 173 mg/dL (70-99) H 08/26/24 11:31 Dosing Weight Weight used for dosin kg Estimated Creatinine Clearance Estimated Creatinine Clearance: 75 Goal Trough Goal Trough: 15-20 mcg/mL Pharmacy Plan for Drug Dosing Pharmacy Plan for Drug Dosing: Start Vancomycin 1500mg every 12 hours. Start 08/27/24 @ 0230 Pharmacy Service will continue to monitor and adjust dosing as required. Follow-Up Labs Follow-Up Labs: Trough: Vancomycin Date/Time Labs Ordered Labs to be done on [date and time ordered]: 08/28/24 @ 0200
[2024-08-26 16:28] LABS: CRP 49.90 mg/L (0.0-3.0); Magnesium 2.2 mg/dL (1.5-2.2)
[2024-08-26] MEDS: Lactated Ringers 1,000 ML 1000 ML IV ×2 (16:38→18:44)
--- NOTE | 2024-08-26 17:39 | CT_ITS ---
PROCEDURE: EXTREMITY LOWER WITH CONTRAST 08/26/2024 REASON FOR EXAM: OSTEOMYELITIS TECHNIQUE: EXTREMITY LEFT LOWER WITH CONTRAST. Axial CT images of the left ankle/foot were performed with intravenous contrast. Coronal and Sagittal reconstruction series were provided. One or more dose reduction techniques were used (e.g., Automated exposure control, adjustment of the mA and/or kV according to patient size, use of iterative reconstruction technique). RADIATION DOSE SUMMARY: DLP: 996.99 mGycm COMPARISON: Left foot radiographs earlier same day 08/26/2024. FINDINGS: Patient's distal digits/toes are incompletely imaged on this exam and not assessed. Postoperative changes status post surgical amputation of the 1st ray at the level of the 1st tarsometatarsal joint. No acute fracture or dislocation. Midfoot alignment is maintained on these nonweightbearing images. Relatively well preserved joint spaces. Congruent ankle mortise. No overt osseous erosion/destruction is seen to suggest osteomyelitis involving the ankle and hindfoot/midfoot. The forefoot is incompletely imaged including the toes. Mild calcaneal spurring and degenerative calcification at the Achilles tendon insertion likely thickening likely reflecting tendinosis. Mild generalized subcutaneous edema about the ankle and foot. No drainable fluid collection/abscess. No subcutaneous emphysema. Advanced peripheral atherosclerotic vascular disease, with preserved three- vessel arterial runoff to the ankle/foot. CT/Extremity Lower WITH Contrast IMPRESSION: 1. Postop changes of surgical resection of the 1st digit from the TMT joint. 2. No osseous erosion/destruction to suggest osteomyelitis involving the visual ized ankle and hindfoot/midfoot. Distal forefoot/digits are excluded from the [id number] and not assessed. 3. Note that radiographs and CT are limited in the detection of early osteomyel itis, and if there is strong/persistent clinical concern MRI has superior sensitivity. 4. Mild generalized soft tissue edema. No drainable fluid collection/abscess o r emphysema. Reading Location: [id number]
--- NOTE | 2024-08-26 17:39 | CT_ITS ---
PROCEDURE: EXTREMITY LOWER WITH CONTRAST 08/26/2024 REASON FOR EXAM: OSTEOMYELITIS TECHNIQUE: EXTREMITY LEFT LOWER WITH CONTRAST. Axial CT images of the left ankle/foot were performed with intravenous contrast. Coronal and Sagittal reconstruction series were provided. One or more dose reduction techniques were used (e.g., Automated exposure control, adjustment of the mA and/or kV according to patient size, use of iterative reconstruction technique). RADIATION DOSE SUMMARY: DLP: 996.99 mGycm COMPARISON: Left foot radiographs earlier same day 08/26/2024. FINDINGS: Patient's distal digits/toes are incompletely imaged on this exam and not assessed. Postoperative changes status post surgical amputation of the 1st ray at the level of the 1st tarsometatarsal joint. No acute fracture or dislocation. Midfoot alignment is maintained on these nonweightbearing images. Relatively well preserved joint spaces. Congruent ankle mortise. No overt osseous erosion/destruction is seen to suggest osteomyelitis involving the ankle and hindfoot/midfoot. The forefoot is incompletely imaged including the toes. Mild calcaneal spurring and degenerative calcification at the Achilles tendon insertion likely thickening likely reflecting tendinosis. Mild generalized subcutaneous edema about the ankle and foot. No drainable fluid collection/abscess. No subcutaneous emphysema. Advanced peripheral atherosclerotic vascular disease, with preserved three- vessel arterial runoff to the ankle/foot. CT/Extremity Lower WITH Contrast IMPRESSION: 1. Postop changes of surgical resection of the 1st digit from the TMT joint. 2. No osseous erosion/destruction to suggest osteomyelitis involving the visual ized ankle and hindfoot/midfoot. Distal forefoot/digits are excluded from the [id number] and not assessed. 3. Note that radiographs and CT are limited in the detection of early osteomyel itis, and if there is strong/persistent clinical concern MRI has superior sensitivity. 4. Mild generalized soft tissue edema. No drainable fluid collection/abscess o r emphysema. Reading Location: [id number]
--- NOTE | 2024-08-26 17:46 | PCM.CONS.GEN ---
Assessment & Plan Assessment/Plan (1) Diabetic foot ulcer: PLAN: seen today and will follow up in the am. no intervention necessary for tonight will plan fo incision and drainage left foot tomorrow pm and f/u then may consider at bedside (2) Acute osteomyelitis of left foot: (3) Osteomyelitis: QUALIFIERS: Osteomyelitis type: other acute Osteomyelitis location: foot Laterality: right Qualified Code(s): M86.171 - Other acute osteomyelitis, right ankle and foot (4) Diabetic neuropathy associated with type 2 diabetes mellitus: QUALIFIERS: Diabetes mellitus complication detail: diabetic polyneuropathy Qualified Code(s): E11.42 - Type 2 diabetes mellitus with diabetic polyneuropathy HPI Consult Data Date of Consult: 08/26/24 HPI Narrative Reason for Consultation: cellulitis possible osteomyelitis, post amputation and historyof DM HPI Narrative: PETE ORTIZ, is a 69 M who presents [facility] Medical History Anxiety Diabetes Arthritis with psoriasis Former smoker Asthma ICD (implantable cardioverter-defibrillator) in place Pacemaker Congestive heart failure (CHF) Myocardial infarct Coronary artery disease Hypertension Abnormal lead impedance of implantable cardioverter-defibrillator Clostridioides difficile infection Hyperglycemia due to type 2 diabetes mellitus Acute kidney injury Gout of right knee Pseudogout of right knee Effusion, right knee Right knee pain Constipation Claudication Essential (primary) hypertension History of non-ST elevation myocardial infarction (NSTEMI) (10/11/13) NSVT (nonsustained ventricular tachycardia) Obesity Secondary pulmonary arterial hypertension Pulmonary embolism (09/2013) COPD (chronic obstructive pulmonary disease) Chronic kidney disease Type 2 diabetes mellitus Old inferior wall myocardial infarction (02/27/05) DVT (deep venous thrombosis) IBS (irritable bowel syndrome) Ischemic cardiomyopathy Atherosclerosis of [place] coronary artery of [place] heart without angina pectoris Hyperlipidemia Home Medications ?Medication ?Instructions ?Recorded ?Last Taken ?Type atorvastatin 80 mg tablet 80 mg PO DAILY cholesterol 10/05/13 06/13/24 History nitroglycerin 0.4 mg sublingual 0.4 mg sublingual Q5M PRN Angina 10/14/13 Unknown Rx tablet pain #25 tabs albuterol sulfate 90 mcg/actuation 6.7 g inhalation Q4H PRN COPD 07/22/16 12/02/22 History aerosol inhaler hydroxyzine HCl 50 mg tablet 50 mg PO QHS sleep 03/14/17 06/13/24 History losartan 50 mg tablet 50 mg PO DAILY blood pressure 02/01/18 06/14/24 History trazodone 50 mg tablet 50 mg PO QHS sleep 02/25/20 06/13/24 History carvedilol 6.25 mg tablet 6.25 mg PO BID blood pressure 05/31/20 06/14/24 History umeclidinium 62.5 mcg-vilanterol 1 puff PO DAILY COPD 05/31/20 06/14/24 History 25 mcg/actuation powdr for inhalation ezetimibe 10 mg tablet 10 mg PO DAILY Cholesterol 01/03/22 06/14/24 History rivaroxaban 20 mg tablet (Xarelto) 20 mg PO DAILY hx- DVT 01/03/22 06/14/24 History allopurinol 100 mg tablet 100 mg PO BID GOUT 03/06/22 06/14/24 History linaclotide 145 mcg capsule 145 mcg PO DAILY 03/07/23 06/14/24 History (Linzess) dapagliflozin propanediol 5 mg 5 mg PO DAILY 07/13/23 06/14/24 History tablet (Farxiga) levocetirizine 5 mg tablet 5 mg PO DAILY itch 06/14/24 06/14/24 History oxycodone 5 mg tablet 5 mg PO Q6H pain 06/14/24 Unknown History dulaglutide 0.75 mg/0.5 mL 0.75 mg subcut QWEEK blood sugar 06/17/24 Unknown History subcutaneous pen injector (Trulicity) furosemide 40 mg tablet 40 mg PO BIDCM diuretic #60 tabs 06/17/24 Unknown Rx insulin glargine 100 unit/mL (3 60 unit (0.6 mL) subcut 2XD 06/17/24 06/14/24 Rx mL) subcutaneous pen (Lantus Diabetes #15 mL Solostar U-100 Insulin) insulin lispro 100 unit/mL 30 unit (0.3 mL) subcut 3XD 06/17/24 06/14/24 Rx subcutaneous pen (Humalog KwikPen diabetes #15 mL (U-100) Insulin) paroxetine HCl 20 mg tablet (Paxil) 20 mg PO DAILY #60 tabs 06/17/24 Unknown Rx Allergy/AdvReac Type Severity Reaction Status Date / Time No Known Allergies Allergy Verified 08/26/24 11:34 Family History Father CAD (coronary artery disease) Diabetes Colon cancer Heart disease Hypertension Brother CAD (coronary artery disease) Diabetes Kidney disease Mother Cancer Leukemia Brother Diabetes Surgical History Amputated toe of left foot History of cholecystectomy History of implantable cardiac defibrillator (ICD) (02/07/18) History of left heart catheterization (10/13/13) History of coronary artery stent placement (02/27/05) H/O coronary artery bypass surgery (04/18/99) Hx of cataract extraction Social History household members: none housing: house Smoking Status: Former smoker pack-years: 39 second hand exposure: No alcohol intake: former substance use type: does not use caffeine: Yes (1/day) what type of physical activity do you participate in: none Physical Exam Narrative redness and non healing wound with possible palpable bone noted erosions on the xray, mild pain and some low BP but not septic with no significant white count and constitutional symptoms. he has a pacer that may need to be evaluated for vegetations Const alert and oriented x3 HEENT Face and Sinus: normal facial exam Nose: external nose normal Eyes Visual Acuity: acuity normal Neck full ROM Resp normal respiratory effort, normal air movement, no retractions, no use of accessory muscles, clear to auscultation bilaterally and percussion normal Cardio Rate: regular rate GI normal to inspection, nondistended, normoactive bowel sounds, soft to palpation, non-tender, non-distended, hepatosplenomegaly, no masses and no bruits Extremity Extremity Narrative: palpable pedal pulses thin skin and redness with proximal infection and ascending cellulits of the right foto and the 3rd digit of the left foot. aching pain and some soreness but has neuropathy due to poorly controlled dm. will need xrays and also ct scan to eval for OM General Extremity: amputation, edema and pulses abnormal Lab / Micro Data 08/26/24 11:50 08/26/24 11:31 Labs: Laboratory Results - last 24 hr 08/26/24 11:31: Sodium 134, Potassium 4.0, Chloride 96 L, Carbon Dioxide 24.7, Anion Gap 13, BUN 29 H, Creatinine 1.23 H, Estim Creat Clear Calc 74.52, Est GFR (MDRD) Non-Af 63, BUN/Creatinine Ratio 23.7 H, Glucose 173 H, Lactic Acid 1.9, Calcium 9.2, Magnesium 2.2, Total Bilirubin 1.06, AST 22, ALT 12, Alkaline Phosphatase 129, C-React Prot Ext Range 49.90 H, Total Protein 7.3, Albumin 3.7, Globulin 3.6, Albumin/Globulin Ratio 1.0 08/26/24 11:35: PT 26.9 H, INR 2.4, APTT 44.2 H 08/26/24 11:50: WBC 8.8, RBC 5.45, Hgb 15.4, Hct 45.8, MCV 84.0, MCH 28.3, MCHC 33.6, RDW Std Deviation 51.7 H, RDW Coeff of [place] 17.2 H, Plt Count 164, MPV 11.0, Immature Gran % (Auto) 0.700, Neut % (Auto) 73.3 H, Lymph % (Auto) 15.8 L, Day % (Auto) 9.7, Eos % (Auto) 0.2, Baso % (Auto) 0.3, Absolute Neuts (auto) 6.4, Absolute Lymphs (auto) 1.38, Nucleated RBC % 0, ESR 34 H 08/26/24 13:07: Urine Color Yellow, Urine Clarity Clear, Urine pH 6.0, Ur Specific [place] 1.010, Urine Protein 15 H, Urine Glucose (UA) 1000 H, Urine Ketones Negative, Urine Occult Blood 25 H, Urine Nitrite Negative, Urine Bilirubin Negative, Urine Urobilinogen Normal, Ur Leukocyte Esterase Negative, Urine RBC 0 SEEN, Urine WBC 0 SEEN, Ur Squamous Epith Cells 0 SEEN, Urine Bacteria 0 SEEN, Urine Mucus 0 SEEN 08/26/24 16:43: POC Glucose 217 H Imaging Radiology Impression Foot X-Ray 08/26/24 11:45 IMPRESSION: Status post amputation of the great toe as well as the middle and distal phalanges of the 2nd toe and partial resection of the proximal phalanx of the 2nd toe. Soft tissue swelling and erosive change overlying the distal portion of the proximal phalanx of the 3rd toe. Prior resection of the middle and distal phalanges of the 3rd toe. Soft tissue swelling. Reading Location: [facility] Chest X-Ray 08/26/24 12:00 IMPRESSION: Cardiomegaly without overt failure. Reading [facility]
[2024-08-26] MEDS: Lactated Ringers 1,000 ML 100 ML IV (19:46)
[2024-08-26] MEDS: Piperacil/Tazobactam 3.375 GM in 0.9% Normal Saline (50mL MB+) 50 ML IV (21:22)
[2024-08-26] MEDS: hydrOXYzine PAM 25 MG Capsule PO (21:22)
[2024-08-27] VITALS (7 sets, daily range): BP systolic 108–147; BP diastolic 48–58; PULSE 69–94; RESP 18; TEMP 36.6–37.7; O2SAT 92–94; BMI 27.6
[2024-08-27] MEDS: Vancomycin HCl 1,500 MG in 0.9% Normal Saline (500mL Bag) 500 ML 250 MG IV ×2 (02:45→14:12)
[2024-08-27 05:12] LABS: Hematocrit 36.5 % (40-54); Hemoglobin 12.2 g/dL (13.0-16.5); Immature Granulocytes Count 0.020 X10^3/uL (0.0-0.0); Mean Corp Hgb Conc 33.4 g/dL (32-36); Mean Corpuscular Volume 83.9 fL (80-94); Mean Platelet Vol. 10.9 fl (6.2-12.0); NRBC Flagged by Analyzer 0 % (0-5); Platelet Count 126 K/mm3 (150-450); RBC Distribution Width CV 17.0 % (11.6-14.6); RBC Distribution Width SD 51.8 fl (35.1-43.9); Red Blood Count 4.35 M/mm3 (4.6-6.2); White Blood Count 5.1 K/mm3 (4.4-11.0)
[2024-08-27 05:41] LABS: Anion Gap 11 (5-15); BUN 23 mg/dL (4-19); BUN/Creat Ratio 19.2 RATIO (10-20); Calcium,Total 8.3 mg/dL (7.6-11.0); Carbon Dioxide 23.7 mmol/L (21.0-32.0); Chloride 100 mmol/L (98-108); Estimated Creatinine Clearance 69.32 ml/min (50-250); Glucose 213 mg/dL (70-99); Potassium 3.5 mmol/L (3.3-5.1)
[2024-08-27] MEDS: Piperacil/Tazobactam 3.375 GM in 0.9% Normal Saline (50mL MB+) 50 ML IV ×3 (06:19→21:28)
--- NOTE | 2024-08-27 07:29 | PCM.PN.SRG ---
Subjective Subjective Patient seen today resting in bed seems to be rather comfortable he does not look constitutionally sick. He does state that he is feeling better his appetite is starting to return. He states he was falling at home hence he was getting somewhat septic but is not sepsis today. He did have a low-grade temp. Patient states he used to see Dr. Nirali Willis performed the surgery has not followed up with him in years. He does state that recently the third digit became a problem not certain he was wearing diabetic shoes with inserts he truly states his blood sugars when they are under control are in the 170s to 180s. Currently resting comfortably he also states that he has a problem on his right foot that has been there for 2 to 3 years with no one looking at this right foot as well. Which I was not told about from the ER as well. Objective Data Objective Data On exam he has palpable pedal pulses DP and PT noted his PVRs in April showed that he had OTTO of 0.83 on the left 0.63 on the right with concern for moderate peripheral vascular disease. May or may not need vascular check would consider new PVRs as well. Right foot has ulceration subfifth metatarsal tuberosity with large callus area he has a severe cavovarus foot type which is also creating a difficulty with the foot that rolls inward. He is able to dorsiflex the foot but he does has no signs of eversion. At some point need to get x-rays on the right side as well. CT scan was inconclusive as it did not cover all the way to the digits. Otherwise the rest the foot is stable. I did discuss with him surgical intervention at this point he also has a right foot ulceration Right foot shows a large ulceration with large amounts of necrotic tissue there is an odor at this point it appears to be a chronic wound with or without infection. Will get x-rays on the right side. Patient has peripheral neuropathy with no pain to either side. Left foot has extensive cellulitis extending up to the ankle level which does show that since antibiotics it is descending. Hemoglobin A1c is 8.6, CRP is 49 Vital Signs: Vital Signs Temp Pulse Resp BP Pulse Ox O2 Del Method 99.9 F H 82 18 115/57 L 93 Room Air 08/27/24 03:15 08/27/24 03:15 08/27/24 03:15 08/27/24 03:15 08/27/24 03:15 08/27/24 03:15 Oxygen Delivery Method Room Air Weight: 102.8 kg Body Mass Index (BMI) 27.6 Intake & Output: Intake and Output for Last 24 Hours 08/25/24 08/26/24 08/27/24 23:59 23:59 23:59 Intake Total 3820 / 3820 723.33 / 723.33 Balance 3820 / 3820 723.33 / 723.33 Lab / Micro Data Attestation: I reviewed the patient's lab results. 08/27/24 04:37 08/27/24 04:37 Labs: Laboratory Results - last 24 hr 08/26/24 11:31: Sodium 134, Potassium 4.0, Chloride 96 L, Carbon Dioxide 24.7, Anion Gap 13, BUN 29 H, Creatinine 1.23 H, Estim Creat Clear Calc 74.52, Est GFR (MDRD) Non-Af 63, BUN/Creatinine Ratio 23.7 H, Glucose 173 H, Lactic Acid 1.9, Calcium 9.2, Magnesium 2.2, Total Bilirubin 1.06, AST 22, ALT 12, Alkaline Phosphatase 129, C-React Prot Ext Range 49.90 H, Total Protein 7.3, Albumin 3.7, Globulin 3.6, Albumin/Globulin Ratio 1.0 08/26/24 11:35: PT 26.9 H, INR 2.4, APTT 44.2 H 08/26/24 11:50: WBC 8.8, RBC 5.45, Hgb 15.4, Hct 45.8, MCV 84.0, MCH 28.3, MCHC 33.6, RDW Std Deviation 51.7 H, RDW Coeff of [place] 17.2 H, Plt Count 164, MPV 11.0, Immature Gran % (Auto) 0.700, Neut % (Auto) 73.3 H, Lymph % (Auto) 15.8 L, [place] % (Auto) 9.7, Eos % (Auto) 0.2, Baso % (Auto) 0.3, Absolute Neuts (auto) 6.4, Absolute Lymphs (auto) 1.38, Nucleated RBC % 0, ESR 34 H 08/26/24 13:07: Urine Color Yellow, Urine Clarity Clear, Urine pH 6.0, Ur Specific [place] 1.010, Urine Protein 15 H, Urine Glucose (UA) 1000 H, Urine Ketones Negative, Urine Occult Blood 25 H, Urine Nitrite Negative, Urine Bilirubin Negative, Urine Urobilinogen Normal, Ur Leukocyte Esterase Negative, Urine RBC 0 SEEN, Urine WBC 0 SEEN, Ur Squamous Epith Cells 0 SEEN, Urine Bacteria 0 SEEN, Urine Mucus 0 SEEN 08/26/24 16:43: POC Glucose 217 H 08/26/24 21:27: POC Glucose 323 H 08/27/24 04:37: WBC 5.1, RBC 4.35 L, Hgb 12.2 L, Hct 36.5 L, MCV 83.9, MCH 28.0, MCHC 33.4, RDW Std Deviation 51.8 H, RDW Coeff of [place] 17.0 H, Plt Count 126 L, MPV 10.9, Immature Gran % (Auto) 0.400, Neut % (Auto) 53.9, Lymph % (Auto) 31.3, [place] % (Auto) 13.8 H, Eos % (Auto) 0.2, Baso % (Auto) 0.4, Absolute Neuts (auto) 2.7, Absolute Lymphs (auto) 1.59, Nucleated RBC % 0, Sodium 135, Potassium 3.5, Chloride 100, Carbon Dioxide 23.7, Anion Gap 11, BUN 23 H, Creatinine 1.20, Estim Creat Clear Calc 69.32, Est GFR (MDRD) Non-Af 65, BUN/Creatinine Ratio 19.2, Glucose 213 H, Hemoglobin A1c 8.6 H, Calcium 8.3, Phosphorus 2.4 L Micro: Microbiology 08/26/24 11:31 Blood Culture (Wb) - Venous Blood Culture - Preliminary 08/26/24 20:15 Wound - Left Foot Skin and Soft Tissue MRSA/MSSA (PCR - Final Radiography Diagnostic Testing: Radiology Impression Foot X-Ray 08/26/24 11:45 IMPRESSION: Status post amputation of the great toe as well as the middle and distal phalanges of the 2nd toe and partial resection of the proximal phalanx of the 2nd toe. Soft tissue swelling and erosive change overlying the distal portion of the proximal phalanx of the 3rd toe. Prior resection of the middle and distal phalanges of the 3rd toe. Soft tissue swelling. Reading Location: [place] [id number] Chest X-Ray 08/26/24 12:00 IMPRESSION: Cardiomegaly without overt failure. Reading Location: [facility] Lower Extremity CT 08/26/24 17:39 IMPRESSION: 1. Postop changes of surgical resection of the 1st digit from the TMT joint. 2. No osseous erosion/destruction to suggest osteomyelitis involving the visualized ankle and hindfoot/midfoot. Distal forefoot/digits are excluded from the [id number] and not assessed. 3. Note that radiographs and CT are limited in the detection of early osteomyelitis, and if there is strong/persistent clinical concern MRI has superior sensitivity. 4. Mild generalized soft tissue edema. No drainable fluid collection/abscess or emphysema. Reading Location: [facility] Physical Exam Narrative Physical exam noted above with cellulitis left foot nonhealing ulceration significant acute osteomyelitis third digit with contracture at this point recommend transmetatarsal amputation with advancement flap. Assessment & Plan Assessment/Plan (1) Acute osteomyelitis of left foot: PLAN: Patient will need amputation left foot with transmetatarsal amputation advancement flap muscle flap. Does have good range of motion may or may not need to tendo Achilles lengthening. Right side will need debridement and long-term will need reconstruction to get amount of his cavovarus foot type. At some point long-term patients can need procedure on the right foot as well to help resolve the ulceration on the lateral side. For now he needs amputation left foot. (2) Diabetic foot ulcer: PLAN: Discussed proper treatment as well as follow-up care at the same time he knows need to get his blood sugars under better control in the under 150 should improve and heal. (3) Ulcer of right lower extremity with fat layer exposed: PLAN: This point we will get x-rays plan for surgical debridement at this point since he will have to be weightbearing on the left foot may need to hold off on anything on the right foot as he may need a calcaneal osteotomy and further workup due to his open wound to offload this area. Will get x-rays consider osteotomy of the fifth metatarsal if necessary. (4) BRENNAN (acute kidney injury): (5) Diabetic neuropathy associated with type 2 diabetes mellitus: QUALIFIERS: Diabetes mellitus complication detail: diabetic polyneuropathy Qualified Code(s): E11.42 - Type 2 diabetes mellitus with diabetic polyneuropathy
--- NOTE | 2024-08-27 07:44 | RAD_ITS ---
PROCEDURE: FOOT MIN 3 VIEWS 08/27/2024 REASON FOR EXAM: ULCER RIGHT FOOT 5TH METATARSAL TUBEROSITY TECHNIQUE: FOOT MIN 3 VIEWS COMPARISON: Right foot study of 05/31/2020. RAD/Foot min 3 Views IMPRESSION: Progressive degenerative changes are seen throughout the 1st ray, now moderate throughout. Prior transverse fracture of the proximal right 5th metatarsal bone seen, with partial healing seen medially. A soft tissue ulcer is seen in the level of the proximal shaft of the 5th metat arsal bone, but no subjacent osseous destructive change is seen to suggest the presence of osteomyelitis at this time. No new fracture site is seen. On the lateral view, normal contour of the Achilles tendon is noted. Reading Location: [id number]
--- NOTE | 2024-08-27 07:44 | RAD_ITS ---
PROCEDURE: FOOT MIN 3 VIEWS 08/27/2024 REASON FOR EXAM: ULCER RIGHT FOOT 5TH METATARSAL TUBEROSITY TECHNIQUE: FOOT MIN 3 VIEWS COMPARISON: Right foot study of 05/31/2020. RAD/Foot min 3 Views IMPRESSION: Progressive degenerative changes are seen throughout the 1st ray, now moderate throughout. Prior transverse fracture of the proximal right 5th metatarsal bone seen, with partial healing seen medially. A soft tissue ulcer is seen in the level of the proximal shaft of the 5th metat arsal bone, but no subjacent osseous destructive change is seen to suggest the presence of osteomyelitis at this time. No new fracture site is seen. On the lateral view, normal contour of the Achilles tendon is noted. Reading Location: [id number]
[2024-08-27] MEDS: Insulin Glargine-YFGN 100 UNIT/ML Pen 60 UNIT SC ×2 (08:33→17:40)
--- NOTE | 2024-08-27 11:27 | WOUNDNOTE ---
wound photo: left foot
--- NOTE | 2024-08-27 11:27 | WOUNDNOTE ---
wound photo: left foot
--- NOTE | 2024-08-27 11:29 | WOUNDNOTE ---
wound photo: left foot
--- NOTE | 2024-08-27 11:29 | WOUNDNOTE ---
wound photo: left foot
--- NOTE | 2024-08-27 11:29 | WOUNDNOTE ---
wound photo: right foot
--- NOTE | 2024-08-27 11:29 | WOUNDNOTE ---
wound photo: right foot
--- NOTE | 2024-08-27 11:30 | WOUNDNOTE ---
wound photo: right foot
--- NOTE | 2024-08-27 11:30 | WOUNDNOTE ---
wound photo: right foot
[2024-08-27] MEDS: 0.9% Saline Lock 10 ML Syringe IV ×2 (14:08→21:34)
--- NOTE | 2024-08-27 15:24 | CASEMGMT ---
TIA ESCOBAR in to discuss discharge planning with patient. Patient states he would like to go to [facility] at discharge, patient declined SNF list. Patient had no further questions or concerns. TIA ESCOBAR updated DC Process Area Supervisor to send referral to [facility]. CM will continue to follow this patient and plan for a safe discharge.
--- NOTE | 2024-08-27 15:24 | CASEMGMT ---
TIA ESCOBAR in to discuss discharge planning with patient. Patient states he would like to go to [facility] at discharge, patient declined SNF list. Patient had no further questions or concerns. TIA ESCOBAR updated [facility] Travel Guide to send referral to [facility]. CM will continue to follow this patient and plan for a safe discharge.
--- NOTE | 2024-08-27 18:11 | PN.HOSP_ITS ---
Reason for Visit Reason for Visit: Diagnoses Type 2 diabetes mellitus with diabetic polyneuropathy (08/26/24) Type 2 diabetes mellitus with foot ulcer (08/26/24) Non-pressure chronic ulcer of other part of unspecified foot with unspecified severity (08/26/24) Non-pressure chronic ulcer of unspecified part of right lower leg with fat layer exposed (08/26/24) Other acute osteomyelitis, right ankle and foot (08/26/24) Other acute osteomyelitis, left ankle and foot (08/26/24) Acute kidney failure, unspecified (08/26/24) Subjective Subjective Patient was seen and examined today, I talked with podiatry about his care, tomorrow he will go for a left forefoot amputation and also have debridement of his right foot wound. [facility] from the hospital here. Objective Data Objective Data Vital Signs: Vital Signs Temp Pulse Resp BP Pulse Ox O2 Del Method 98.3 F 77 18 116/52 L 92 Room Air 08/27/24 16:05 08/27/24 16:05 08/27/24 16:05 08/27/24 16:05 08/27/24 16:05 08/27/24 16:05 Oxygen Delivery Method Room Air Weight: 102.8 kg Body Mass Index (BMI) 27.6 Intake & Output: Intake and Output for Last 24 Hours 08/25/24 08/26/24 08/27/24 23:59 23:59 23:59 Intake Total 3820 / 3920 33 / 33 Output Total 300 / 300 Balance 3820 / 3920 1713.33 / 1713.33 Lab / Micro Data 08/27/24 04:37 08/27/24 04:37 Labs: Laboratory Results - last 24 hr 08/26/24 21:27: POC Glucose 323 H 08/27/24 04:37: WBC 5.1, RBC 4.35 L, Hgb 12.2 L, Hct 36.5 L, MCV 83.9, MCH 28.0, MCHC 33.4, RDW Std Deviation 51.8 H, RDW Coeff of [place] 17.0 H, Plt Count 126 L, MPV 10.9, Immature Gran % (Auto) 0.400, Neut % (Auto) 53.9, Lymph % (Auto) 31.3, [place] % (Auto) 13.8 H, Eos % (Auto) 0.2, Baso % (Auto) 0.4, Absolute Neuts (auto) 2.7, Absolute Lymphs (auto) 1.59, Nucleated RBC % 0, Sodium 135, Potassium 3.5, Chloride 100, Carbon Dioxide 23.7, Anion Gap 11, BUN 23 H, Creatinine 1.20, Estim Creat Clear Calc 69.32, Est GFR (MDRD) Non-Af 65, BUN/Creatinine Ratio 19.2, Glucose 213 H, Hemoglobin A1c 8.6 H, Calcium 8.3, Phosphorus 2.4 L 08/27/24 08:27: POC Glucose 171 H 08/27/24 11:24: POC Glucose 166 H 08/27/24 16:29: POC Glucose 265 H Micro: Microbiology 08/26/24 11:31 Blood Culture (Wb) - Left Hand Bacteria Detection (PCR) - Final Meth. resistant Staph. aureus 08/26/24 11:31 Blood Culture (Wb) - Left Hand Blood Culture - Preliminary 08/26/24 11:50 Blood Culture (Wb) - Left Hand Blood Culture - Preliminary 08/26/24 20:15 Wound Drainage - Toe Gram Stain - Final 08/26/24 20:15 Wound Drainage - Toe Wound Culture - Preliminary No growth-Final to follow 08/26/24 20:15 Wound - Left Foot Skin and Soft Tissue MRSA/MSSA (PCR - Final Radiography Diagnostic Testing: Radiology Impression Lower Extremity CT 08/26/24 17:39 IMPRESSION: 1. Postop changes of surgical resection of the 1st digit from the TMT joint. 2. No osseous erosion/destruction to suggest osteomyelitis involving the visualized ankle and hindfoot/midfoot. Distal forefoot/digits are excluded from the menxy-ai-sbrn and not assessed. 3. Note that radiographs and CT are limited in the detection of early osteomyelitis, and if there is strong/persistent clinical concern MRI has superior sensitivity. 4. Mild generalized soft tissue edema. No drainable fluid collection/abscess or emphysema. Reading Location: [id number] Foot X-Ray 08/27/24 07:44 IMPRESSION: Progressive degenerative changes are seen throughout the 1st ray, now moderate throughout. Prior transverse fracture of the proximal right 5th metatarsal bone seen, with partial healing seen medially. A soft tissue ulcer is seen in the level of the proximal shaft of the 5th metatarsal bone, but no subjacent osseous destructive change is seen to suggest the presence of osteomyelitis at this time. No new fracture site is seen. On the lateral view, normal contour of the Achilles tendon is noted. Reading Location: [address] Physical Exam Const alert, oriented x3 and no apparent distress General Appearance: cooperative, well kempt and well developed Orientation / Consciousness: awake, oriented to person, oriented to place and oriented to time HEENT normocephalic, head/scalp atraumatic and moist oral mucous membranes Eyes PERRL, EOMs intact bilaterally and conjunctivae normal Neck supple, no JVD, thyroid normal and no carotid bruits General: trachea midline Resp normal respiratory effort, no retractions, no use of accessory muscles and clear to auscultation bilaterally Auscultation: Negative for rales, rhonchi or wheezes Cardio regular rate, regular rhythm, S1 normal heart sound, S2 normal heart sound, no murmurs, no rub and no gallops GI normal to inspection, nondistended, normoactive bowel sounds, soft to palpation, non-tender and non-distended Skin Skin Narrative: Patient's foot areas were not examined by me today, he has surgical dressing over his foot wounds. Neuro oriented x3, CN's II-XII intact bilaterally, moves all extremities, no focal motor deficits and no sensory deficits noted Sensorium / Orientation: awake and alert Speech: speech normal Psych affect normal Assessment & Plan Assessment/Plan (1) Acute osteomyelitis of left foot: PLAN: Plan 1. Osteomyelitis of the left foot-again patient will be taken for a left forefoot amputation tomorrow #2 neuropathic right foot ulcer secondary to poorly controlled type 2 diabetes- this foot ulcer will be debrided tomorrow by podiatry #3 poorly controlled type 2 diabetes-blood sugars will be monitored, sliding scale insulin will be administered and his basal insulin will be adjusted as needed #4 hyperlipidemia-patient is on atorvastatin and Zetia #5 chronic obstructive pulmonary disease-patient is on aerosol treatments #6 chronic use of anticoagulants-patient's Xarelto will be held due to surgery tomorrow #7 essential hypertension-patient will remain on his present medication Total clinical time spent by myself addressing the patient's medical issues, reviewing all of his data, and collaborating with patient's care team: 35 minutes Charges/Coding Visit Charges Inpatient E&M: 29574 Subs Hosp L2
[2024-08-27] MEDS: hydrOXYzine PAM 25 MG Capsule PO (21:34)
[2024-08-28] VITALS (11 sets, daily range): BP systolic 114–137; BP diastolic 54–69; PULSE 68–90; RESP 14–19; TEMP 2.2–37.2; O2SAT 91–97; BMI 28.2
[2024-08-28 03:08] LABS: Vancomycin, Trough Level 16.3 ug/mL (5.0-15.0)
--- NOTE | 2024-08-28 03:21 | PCM.RX.CS ---
Consult Antibiotic Management Pharmacy has been consulted to manage selected antibiotic: Vancomycin Type of Intervention Type of Consult: Follow-up Labs Labs: Sodium 135 mmol/L (133-145) 08/27/24 04:37 Potassium 3.5 mmol/L (3.3-5.1) 08/27/24 04:37 Chloride 100 mmol/L (98-108) 08/27/24 04:37 Carbon Dioxide 23.7 mmol/L (21.0-32.0) 08/27/24 04:37 Anion Gap 11 (5-15) 08/27/24 04:37 BUN 23 mg/dL (4-19) H 08/27/24 04:37 Creatinine 1.20 mg/dL (0.70-1.20) 08/27/24 04:37 Est GFR (MDRD) Non-Af 65 (>60) 08/27/24 04:37 BUN/Creatinine Ratio 19.2 RATIO (10-20) 08/27/24 04:37 Glucose 213 mg/dL (70-99) H 08/27/24 04:37 Vancomycin Trough 16.3 ug/mL (5.0-15.0) H 08/28/24 02:00 Microbiology Microbiology: Microbiology 08/26/24 11:31 Blood Culture (Wb) - Left Hand Bacteria Detection (PCR) - Final Meth. resistant Staph. aureus 08/26/24 11:31 Blood Culture (Wb) - Left Hand Blood Culture - Preliminary 08/26/24 11:50 Blood Culture (Wb) - Left Hand Blood Culture - Preliminary 08/26/24 20:15 Wound Drainage - Toe Gram Stain - Final 08/26/24 20:15 Wound Drainage - Toe Wound Culture - Preliminary No growth-Final to follow 08/26/24 20:15 Wound - Left Foot Skin and Soft Tissue MRSA/MSSA (PCR - Final Goal Trough Goal Trough: 15-20 mcg/mL Pharmacy Plan for Drug Dosing Pharmacy Plan for Drug Dosing: Pharmacy Service will continue to monitor and adjust dosing as required. TROUGH 16.3 @ 11.75 HOURS. NO CHANGES, FOLLOW UP TROUGH IN 2 DAYS Follow-Up Labs Follow-Up Labs: Trough: Vancomycin Date/Time Labs Ordered Labs to be done on [date and time ordered]: 08/30 @ 0200
[2024-08-28] MEDS: Vancomycin HCl 1,500 MG in 0.9% Normal Saline (500mL Bag) 500 ML 250 MG IV ×2 (03:24→15:46)
[2024-08-28] MEDS: 0.9% Saline Lock 10 ML Syringe IV (06:20)
[2024-08-28] MEDS: Piperacil/Tazobactam 3.375 GM in 0.9% Normal Saline (50mL MB+) 50 ML IV ×2 (06:22→17:48)
--- NOTE | 2024-08-28 10:23 | CASEMGMT ---
Addendum entered by Ramesh Velazquez 08/28/24 12:56: Pt being taken to OR at this time. Dtr made aware [facility] has accepted pt. Addendum entered by Ramesh Velazquez 08/28/24 11:32: Message received from [facility] that pt has been accepted. Original Note: TIA ESCOBAR note: Referral sent to [facility] via [facility]. Nikki JULES RN CM
--- NOTE | 2024-08-28 10:23 | CASEMGMT ---
Addendum entered by Ramesh Velazquez 08/28/24 12:56: Pt being taken to OR at this time. Dtr made aware [place] [facility] has accepted pt. Addendum entered by Ramesh Velazquez 08/28/24 11:32: Message received from [place] that pt has been accepted. Original Note: TIA ESCOBAR note: Referral sent to [place] [facility] via [facility]. Nikki JULES RN CM
--- NOTE | 2024-08-28 10:39 | WOUNDNOTE ---
Pt scheduled for surgery later today. will leave dressings in place for now.
--- NOTE | 2024-08-28 10:39 | WOUNDNOTE ---
Pt scheduled for surgery later today. will leave dressings in place for now.
--- NOTE | 2024-08-28 12:51 | NURSING ---
Report called to TIA Mata in [place].
--- NOTE | 2024-08-28 12:51 | NURSING ---
Report called to TIA Mata in [place].
[2024-08-28] MEDS: 0.9% Normal Saline (1000mL) 1,000 ML 15 ML IV (13:20)
--- NOTE | 2024-08-28 14:55 | PCM.PRE.AN2 ---
ASA Classification* ASA Classification ASA Classification: 3 Assessment & Plan Anesthesia* Anesthesia Assessment Anesthesia Assessment: Discussed sedation and/or anesthesia options, risks, benefits, and alternatives with patient/parents/legal guardian/POA. Questions invited. The patient/parents/legal guardian/POA seems to understand and agrees to proceed with anesthesia plan. Reviewed the physical assessment, medical history, allergy history and patient home medications list prior to surgery/procedure/anesthetic and documented any changes. Performed airway and anesthesia risk assessments. Anesthesia Type Anesthesia Type: MAC History Source History Obtained from:: Patient and Chart Anesthesia Focused Assessment* Temperature: 98.3 F Pulse Rate: 73 Blood Pressure: 118/61 Respiratory Rate: 18 Pulse Ox: 94 Oxygen Delivery Method: Room Air Airway Assessment Mouth opens: >3 cm Mallampati Score: I Teeth Condition: Dentures (Upper dentures are out.) and Missing (Multiple missing. Remaining teeth on the bottom are all tight.) Neck Range of motion (ROM): Limited ROM (Slight Decrease) Labs Anesthesia Preop lab: CBC WBC 5.1 K/mm3 (4.4-11.0) 08/27/24 04:37 08/27/24 RBC 4.35 M/mm3 (4.6-6.2) L 08/27/24 04:37 08/27/24 Hgb 12.2 g/dL (13.0-16.5) L 08/27/24 04:37 08/27/24 Hct 36.5 % (40-54) L 08/27/24 04:37 08/27/24 Plt Count 126 K/mm3 (150-450) L 08/27/24 04:37 08/27/24 CHEMISTRY Potassium 3.5 mmol/L (3.3-5.1) 08/27/24 04:37 08/27/24 Sodium 135 mmol/L (133-145) 08/27/24 04:37 08/27/24 Magnesium 2.2 mg/dL (1.5-2.2) 08/26/24 11:31 08/26/24 Phosphorus 2.4 mg/dL (2.7-4.5) L 08/27/24 04:37 08/27/24 BUN 23 mg/dL (4-19) H 08/27/24 04:37 08/27/24 Creatinine 1.20 mg/dL (0.70-1.20) 08/27/24 04:37 08/27/24 Glucose 213 mg/dL (70-99) H 08/27/24 04:37 08/27/24 POC Glucose 164 mg/dL (74-106) H 08/28/24 11:53 08/28/24 TSH 1.87 uIU/mL (0.358-3.74) 03/08/23 07:14 03/08/23 COAG PT 26.9 SECONDS (11.7-14.9) H 08/26/24 11:35 08/26/24 Pre-Assessment Diagnosis/Proposed Procedure Planned Operative Procedure(s): Left foot transmetatarsal amputation, muscle flap advancement with bone anchors. Debridement of ulceration right foot with removal of all necrotic bone and soft tissue, application of graft right foot. Anesthesia History Anesthesia History - [employer]: Anesthesia History - vice president client services Hx Hospitalization No 12/16/21 10:09 Any Problems With Anesthesia No 08/27/24 21:37 Cholinesterase deficiency No 08/27/24 21:37 You/Your Family Experience No 08/27/24 21:37 fever (hyperthermia) with Relationship Recent Exposure to Contagious No 08/27/24 21:37 Disease Does patient have nerve No 08/27/24 21:37 stimulator Patient instructed to have No 08/27/24 21:37 device shut off --Does patient have Pacemaker Yes 08/28/24 11:51 or ICD? When Was Last Pacemaker Check 2 months ago 08/27/24 21:37 QUESTION #4 FULL TEXT: You/Your Family Experience fever (hyperthermia) with Anesthesia Last Oral Intake Last Oral intake: Last Oral Intake NPO since 00:00 08/28/24 11:51 Meds taken in AM with sips of Yes 08/28/24 11:51 water? Meds patient instructed to Oxyir 08/28/24 11:51 take am of surgery Tylenol Allopurinol Lipitor Paxil Protonix Zetia PONV PONV - vice president client services: PONV - vice president client services Female HX of Motion Sickness HX of N/V After Surgery Non-Smoker Duration of Surgery greater than 60 minutes Number of Risk Factors PONV Score Height & Weight Height & Weight: Anesthesia: Height & Weight Height 6 ft 4 in 08/28/24 11:51 Weight: 105.1 kg 08/28/24 11:51 Body Mass Index (BMI) 28.2 08/28/24 11:51 Respiratory Assessment Respiratory Assessment - vice president client services: Respiratory Tract Infection Hx - vice president client services Hx Respiratory Tract Infection No 08/27/24 21:37 STOP Sleep Apnea STOP Sleep Apnea - vice president client services: STOP Sleep Apnea - vice president client services Hx Hypertension Yes 08/27/24 14:38 Hx Sleep Apnea No 08/26/24 15:52 CPAP No 08/26/24 15:52 BIPAP No 08/26/24 15:52 Do you snore loudly (louder No 08/26/24 15:52 than talking or can be heard Do you often feel tired/ Yes 08/26/24 15:52 fatigued/ sleepy during daytime? Has anyone observed you stop No 08/26/24 15:52 breathing during sleep? STOP Results Positive 08/26/24 15:52 QUESTION #5 FULL TEXT : Do you snore loudly (louder than talking or can be heard through closed doors)? 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 confused, unrespo /Reproduction History /Reproductive History - vice president client services: /Reproductive Hx- vice president client services Hx Now No 08/27/24 21:37 Gestational Age (in weeks): EDC: Hx Hx Para Hx Section SAB No 08/27/24 21:37 Active Medications Active Medications: Current Medications Generic Name Dose Route Start Last Admin Trade Name Freq PRN Reason Stop Dose Admin Acetaminophen 650 mg 08/26/24 15:59 08/28/24 08:09 Acetaminophen 325 Mg Tablet PO 650 mg Q6H PRN PRN Administration Pain 1-10 Or Fever>100.7 Albuterol/Ipratropium 3 ml 08/26/24 15:59 Ipratropium/Albuterol Sulfate 3 Ml Ampul.Neb INHALATION Q4H.RT PRN sob Allopurinol 100 mg 08/26/24 22:00 08/28/24 08:12 Allopurinol 100 Mg Tablet PO 100 mg BID ITALIA Administration Atorvastatin Calcium 80 mg 08/27/24 10:00 08/28/24 08:11 Atorvastatin Calcium 80 Mg Tablet PO 80 mg DAILY ITALIA Administration Ezetimibe 10 mg 08/27/24 10:00 08/28/24 08:11 Ezetimibe 10 Mg Tablet PO 10 mg DAILY ITALIA Administration Glucagon 1 mg 08/26/24 15:59 Glucagon 1 Mg/Ml Syringe IM X1 PRN Hypoglycemia Protocol Hydroxyzine Pamoate 25 mg 08/26/24 22:00 08/27/24 21:34 Hydroxyzine Deb 25 Mg Capsule PO 25 mg QHS ITALIA Administration Sodium Chloride 250 mls @ 15 mls/hr 08/26/24 15:50 IV .[id number] PRN Saline Flush Sodium Chloride 250 mls @ 15 mls/hr 08/26/24 15:50 IV .[id number] PRN Additional IVPB Infusion Vancomycin HCl 1,500 mg/ 530 mls @ 250 mls/hr 08/27/24 02:30 08/28/24 05:46 Sodium Chloride IV Infused Q12H ITALIA Infusion Piperacillin Sod/Tazobactam 50 mls @ 12.5 mls/hr 08/26/24 22:00 08/28/24 10:22 Sod 3.375 gm/ Sodium Chloride IV Infused Q8 ITALIA Infusion Dextrose 250 mls @ 0 mls/hr 08/26/24 15:59 Dextrose 10%-Water IV .Q0M PRN HYPOGLYCEMIA Protocol As Directed Vancomycin IV-PHARMACY TO DOSE 500 mls @ 250 mls/hr 08/27/24 11:25 1 each/ Sodium Chloride IV DAILY PRN PRN Pharmacy to Dose Protocol Sodium Chloride 1,000 mls @ 15 mls/hr 08/28/24 13:15 08/28/24 13:20 IV 15 mls/hr .Q48H ITALIA Administration Insulin Glargine 60 unit 08/27/24 07:00 08/28/24 08:09 Insulin Glargine-Yfgn 100 Unit/Ml Pen SC Not Given BIDAC [facility] Insulin Human Lispro 30 unit 08/27/24 07:00 08/28/24 11:59 Insulin Lispro 100 Unit/Ml Insuln.Pen SC Not Given TIDAC [facility] Insulin Human Lispro 0 unit 08/26/24 16:00 08/28/24 11:59 Insulin Lispro 100 Unit/Ml Insuln.Pen SC Not Given ACHS [facility] Protocol Loratadine 10 mg 08/27/24 10:00 Loratadine 10 Mg Tablet PO DAILY PRN ALLERGIES Nitroglycerin 0.4 mg 08/26/24 15:59 Nitroglycerin (Inpatient Use) 0.4 Mg Tab.Subl SL Q5M PRN CARDIAC/CHEST PAIN Oxycodone HCl 2.5 - 5 mg 08/26/24 15:59 08/28/24 08:08 Oxycodone 5 Mg Tablet PO 5 mg Q4H PRN PRN Administration Pain Score 4-10 Pantoprazole Sodium 40 mg 08/27/24 10:00 08/28/24 08:11 Pantoprazole Sodium 40 Mg Tablet PO 40 mg DAILY ITALIA Administration Paroxetine HCl 20 mg 08/27/24 10:00 08/28/24 08:10 Paroxetine 20 Mg Tablet PO 20 mg DAILY ITALIA Administration Prochlorperazine Edisylate 5 mg 08/26/24 15:59 Prochlorperazine 10 Mg/2 Ml Vial IV Q4H PRN PRN Breakthrough Nausea/Vomiting Rivaroxaban 20 mg 08/27/24 10:00 08/27/24 14:24 Rivaroxaban 20 Mg Tablet PO Not Given DAILY ITALIA Senna/Docusate Sodium 2 tablet 08/26/24 15:59 Senna/Docusate Sodium 1 Tablet PO BID PRN PRN Constipation Sodium Chloride 10 - 40 ml 08/26/24 15:50 08/28/24 06:20 0.9% Saline Lock 10 Ml Syringe IV 10 ml UD PRN Administration SALINE FLUSH Trazodone HCl 50 mg 08/26/24 22:00 08/27/24 21:34 Trazodone 50 Mg Tablet PO 50 mg QHS ITALIA Administration Vancomycin Protocol 1 lab 08/30/24 01:00 Vancomycin Trough/Random Due MC 08/30/24 03:00 DAILY ITALIA PFSH Medical History Anxiety Diabetes Arthritis with psoriasis Former smoker Asthma ICD (implantable cardioverter-defibrillator) in place Pacemaker Congestive heart failure (CHF) Myocardial infarct Coronary artery disease Hypertension Abnormal lead impedance of implantable cardioverter-defibrillator Clostridioides difficile infection Hyperglycemia due to type 2 diabetes mellitus Acute kidney injury Gout of right knee Pseudogout of right knee Effusion, right knee Right knee pain Constipation Claudication Essential (primary) hypertension History of non-ST elevation myocardial infarction (NSTEMI) (10/11/13) NSVT (nonsustained ventricular tachycardia) Obesity Secondary pulmonary arterial hypertension Pulmonary embolism (09/2013) COPD (chronic obstructive pulmonary disease) Chronic kidney disease Type 2 diabetes mellitus Old inferior wall myocardial infarction (02/27/05) DVT (deep venous thrombosis) IBS (irritable bowel syndrome) Ischemic cardiomyopathy Atherosclerosis of [place] coronary artery of [place] heart without angina pectoris Hyperlipidemia Home Medications ?Medication ?Instructions ?Recorded ?Last Taken ?Type atorvastatin 80 mg tablet 80 mg PO DAILY cholesterol 10/05/13 06/13/24 History nitroglycerin 0.4 mg sublingual 0.4 mg sublingual Q5M PRN Angina 10/14/13 Unknown Rx tablet pain #25 tabs albuterol sulfate 90 mcg/actuation 6.7 g inhalation Q4H PRN COPD 07/22/16 12/02/22 History aerosol inhaler hydroxyzine HCl 50 mg tablet 50 mg PO QHS sleep 03/14/17 06/13/24 History losartan 50 mg tablet 50 mg PO DAILY blood pressure 02/01/18 06/14/24 History trazodone 50 mg tablet 50 mg PO QHS sleep 02/25/20 06/13/24 History carvedilol 6.25 mg tablet 6.25 mg PO BID blood pressure 05/31/20 06/14/24 History umeclidinium 62.5 mcg-vilanterol 1 puff PO DAILY COPD 05/31/20 06/14/24 History 25 mcg/actuation powdr for inhalation ezetimibe 10 mg tablet 10 mg PO DAILY Cholesterol 01/03/22 06/14/24 History rivaroxaban 20 mg tablet (Xarelto) 20 mg PO DAILY hx- DVT 01/03/22 08/25/24 History allopurinol 100 mg tablet 100 mg PO BID GOUT 03/06/22 06/14/24 History linaclotide 145 mcg capsule 145 mcg PO DAILY 03/07/23 06/14/24 History (Linzess) dapagliflozin propanediol 5 mg 5 mg PO DAILY 07/13/23 06/14/24 History tablet (Farxiga) levocetirizine 5 mg tablet 5 mg PO DAILY itch 06/14/24 06/14/24 History oxycodone 5 mg tablet 5 mg PO Q6H pain 06/14/24 Unknown History dulaglutide 0.75 mg/0.5 mL 0.75 mg subcut QWEEK blood sugar 06/17/24 Unknown History subcutaneous pen injector (Trulicity) furosemide 40 mg tablet 40 mg PO BIDCM diuretic #60 tabs 06/17/24 Unknown Rx insulin glargine 100 unit/mL (3 60 unit (0.6 mL) subcut 2XD 06/17/24 06/14/24 Rx mL) subcutaneous pen (Lantus Diabetes #15 mL Solostar U-100 Insulin) insulin lispro 100 unit/mL 30 unit (0.3 mL) subcut 3XD 06/17/24 06/14/24 Rx subcutaneous pen (Humalog KwikPen diabetes #15 mL (U-100) Insulin) paroxetine HCl 20 mg tablet (Paxil) 20 mg PO DAILY #60 tabs 06/17/24 Unknown Rx Allergy/AdvReac Type Severity Reaction Status Date / Time No Known Allergies Allergy Verified 08/26/24 11:34 Family History Father CAD (coronary artery disease) Diabetes Colon cancer Heart disease Hypertension Brother CAD (coronary artery disease) Diabetes Kidney disease Mother Cancer Leukemia Brother Diabetes Surgical History Amputated toe of left foot History of cholecystectomy History of implantable cardiac defibrillator (ICD) (02/07/18) History of left heart catheterization (10/13/13) History of coronary artery stent placement (02/27/05) H/O coronary artery bypass surgery (04/18/99) Hx of cataract extraction Social History household members: none housing: house Smoking Status: Former smoker pack-years: 39 second hand exposure: No alcohol intake: former substance use type: does not use caffeine: Yes (1/day) what type of physical activity do you participate in: none Review of Systems (Anesthesia) ROS Narrative System reviewed and no additional complaints, except as documented.
--- NOTE | 2024-08-28 14:55 | PCM.PRE.AN2 ---
ASA Classification* ASA Classification ASA Classification: 3 Assessment & Plan Anesthesia* Anesthesia Assessment Anesthesia Assessment: Discussed sedation and/or anesthesia options, risks, benefits, and alternatives with patient/parents/legal guardian/POA. Questions invited. The patient/parents/legal guardian/POA seems to understand and agrees to proceed with anesthesia plan. Reviewed the physical assessment, medical history, allergy history and patient home medications list prior to surgery/procedure/anesthetic and documented any changes. Performed airway and anesthesia risk assessments. Anesthesia Type Anesthesia Type: MAC History Source History Obtained from:: Patient and Chart Anesthesia Focused Assessment* Temperature: 98.3 F Pulse Rate: 73 Blood Pressure: 118/61 Respiratory Rate: 18 Pulse Ox: 94 Oxygen Delivery Method: Room Air Airway Assessment Mouth opens: >3 cm Mallampati Score: I Teeth Condition: Dentures (Upper dentures are out.) and Missing (Multiple missing. Remaining teeth on the bottom are all tight.) Neck Range of motion (ROM): Limited ROM (Slight Decrease) Labs Anesthesia Preop lab: CBC WBC 5.1 K/mm3 (4.4-11.0) 08/27/24 04:37 08/27/24 RBC 4.35 M/mm3 (4.6-6.2) L 08/27/24 04:37 08/27/24 Hgb 12.2 g/dL (13.0-16.5) L 08/27/24 04:37 08/27/24 Hct 36.5 % (40-54) L 08/27/24 04:37 08/27/24 Plt Count 126 K/mm3 (150-450) L 08/27/24 04:37 08/27/24 CHEMISTRY Potassium 3.5 mmol/L (3.3-5.1) 08/27/24 04:37 08/27/24 Sodium 135 mmol/L (133-145) 08/27/24 04:37 08/27/24 Magnesium 2.2 mg/dL (1.5-2.2) 08/26/24 11:31 08/26/24 Phosphorus 2.4 mg/dL (2.7-4.5) L 08/27/24 04:37 08/27/24 BUN 23 mg/dL (4-19) H 08/27/24 04:37 08/27/24 Creatinine 1.20 mg/dL (0.70-1.20) 08/27/24 04:37 08/27/24 Glucose 213 mg/dL (70-99) H 08/27/24 04:37 08/27/24 POC Glucose 164 mg/dL (74-106) H 08/28/24 11:53 08/28/24 TSH 1.87 uIU/mL (0.358-3.74) 03/08/23 07:14 03/08/23 COAG PT 26.9 SECONDS (11.7-14.9) H 08/26/24 11:35 08/26/24 Pre-Assessment Diagnosis/Proposed Procedure Planned Operative Procedure(s): Left foot transmetatarsal amputation, muscle flap advancement with bone anchors. Debridement of ulceration right foot with removal of all necrotic bone and soft tissue, application of graft right foot. Anesthesia History Anesthesia History - environmental manager: Anesthesia History - environmental manager Hx Hospitalization No 12/16/21 10:09 Any Problems With Anesthesia No 08/27/24 21:37 Cholinesterase deficiency No 08/27/24 21:37 You/Your Family Experience No 08/27/24 21:37 fever (hyperthermia) with Relationship Recent Exposure to Contagious No 08/27/24 21:37 Disease Does patient have nerve No 08/27/24 21:37 stimulator Patient instructed to have No 08/27/24 21:37 device shut off --Does patient have Pacemaker Yes 08/28/24 11:51 or ICD? When Was Last Pacemaker Check 2 months ago 08/27/24 21:37 QUESTION #4 FULL TEXT: You/Your Family Experience fever (hyperthermia) with Anesthesia Last Oral Intake Last Oral intake: Last Oral Intake NPO since 00:00 08/28/24 11:51 Meds taken in AM with sips of Yes 08/28/24 11:51 water? Meds patient instructed to Oxyir 08/28/24 11:51 take am of surgery Tylenol Allopurinol Lipitor Paxil Protonix Zetia PONV PONV - environmental manager: PONV - environmental manager Female HX of Motion Sickness HX of N/V After Surgery Non-Smoker Duration of Surgery greater than 60 minutes Number of Risk Factors PONV Score Height & Weight Height & Weight: Anesthesia: Height & Weight Height 6 ft 4 in 08/28/24 11:51 Weight: 105.1 kg 08/28/24 11:51 Body Mass Index (BMI) 28.2 08/28/24 11:51 Respiratory Assessment Respiratory Assessment - environmental manager: Respiratory Tract Infection Hx - environmental manager Hx Respiratory Tract Infection No 08/27/24 21:37 STOP Sleep Apnea STOP Sleep Apnea - environmental manager: STOP Sleep Apnea - environmental manager Hx Hypertension Yes 08/27/24 14:38 Hx Sleep Apnea No 08/26/24 15:52 CPAP No 08/26/24 15:52 BIPAP No 08/26/24 15:52 Do you snore loudly (louder No 08/26/24 15:52 than talking or can be heard Do you often feel tired/ Yes 08/26/24 15:52 fatigued/ sleepy during daytime? Has anyone observed you stop No 08/26/24 15:52 breathing during sleep? STOP Results Positive 08/26/24 15:52 QUESTION #5 FULL TEXT : Do you snore loudly (louder than talking or can be heard through closed doors)? Tobacco Use History Tobacco Use History - environmental manager: Tobacco Use History - environmental manager Tobacco Use Cigarettes 12/16/21 10:09 Smoking Status Former smoker 08/26/24 15:52 Hx Tobacco Use No 08/26/24 15:52 Years Smoking Packs Smoked per Day Smoking Cessation Date was No - quit smoking greater 08/26/24 15:52 within the last 15 years than 15 years ago Hx Smoking Cessation Date 11/20/11 08/26/24 15:52 Hx Smoking Cessation No 08/26/24 15:52 Counseling Hematologic Medial History Hematologic Hx - environmental manager: Hematologic Medical Hx - electrophysiology scientist Hx of Blood Transfusion No 08/26/24 15:52 Hx of Transfusion in last 3 No 08/26/24 15:52 Months Date of Last Transfusion (if within last 3 months) Ever experience any problems No 08/26/24 15:52 with transfusion(s)? 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 confused, unrespo /Reproduction History /Reproductive History - environmental manager: /Reproductive Hx- environmental manager Hx Now No 08/27/24 21:37 Gestational Age (in weeks): EDC: Hx Hx Para Hx Section SAB No 08/27/24 21:37 Active Medications Active Medications: Current Medications Generic Name Dose Route Start Last Admin Trade Name Freq PRN Reason Stop Dose Admin Acetaminophen 650 mg 08/26/24 15:59 08/28/24 08:09 Acetaminophen 325 Mg Tablet PO 650 mg Q6H PRN PRN Administration Pain 1-10 Or Fever>100.7 Albuterol/Ipratropium 3 ml 08/26/24 15:59 Ipratropium/Albuterol Sulfate 3 Ml Ampul.Neb INHALATION Q4H.RT PRN sob Allopurinol 100 mg 08/26/24 22:00 08/28/24 08:12 Allopurinol 100 Mg Tablet PO 100 mg BID ITALIA Administration Atorvastatin Calcium 80 mg 08/27/24 10:00 08/28/24 08:11 Atorvastatin Calcium 80 Mg Tablet PO 80 mg DAILY ITALIA Administration Ezetimibe 10 mg 08/27/24 10:00 08/28/24 08:11 Ezetimibe 10 Mg Tablet PO 10 mg DAILY ITALIA Administration Glucagon 1 mg 08/26/24 15:59 Glucagon 1 Mg/Ml Syringe IM X1 PRN Hypoglycemia Protocol Hydroxyzine Pamoate 25 mg 08/26/24 22:00 08/27/24 21:34 Hydroxyzine Deb 25 Mg Capsule PO 25 mg QHS ITALIA Administration Sodium Chloride 250 mls @ 15 mls/hr 08/26/24 15:50 IV .[id number] PRN Saline Flush Sodium Chloride 250 mls @ 15 mls/hr 08/26/24 15:50 IV .[id number] PRN Additional IVPB Infusion Vancomycin HCl 1,500 mg/ 530 mls @ 250 mls/hr 08/27/24 02:30 08/28/24 05:46 Sodium Chloride IV Infused Q12H ITALIA Infusion Piperacillin Sod/Tazobactam 50 mls @ 12.5 mls/hr 08/26/24 22:00 08/28/24 10:22 Sod 3.375 gm/ Sodium Chloride IV Infused Q8 ITALIA Infusion Dextrose 250 mls @ 0 mls/hr 08/26/24 15:59 Dextrose 10%-Water IV .Q0M PRN HYPOGLYCEMIA Protocol As Directed Vancomycin IV-PHARMACY TO DOSE 500 mls @ 250 mls/hr 08/27/24 11:25 1 each/ Sodium Chloride IV DAILY PRN PRN Pharmacy to Dose Protocol Sodium Chloride 1,000 mls @ 15 mls/hr 08/28/24 13:15 08/28/24 13:20 IV 15 mls/hr .Q48H ITALIA Administration Insulin Glargine 60 unit 08/27/24 07:00 08/28/24 08:09 Insulin Glargine-Yfgn 100 Unit/Ml Pen SC Not Given BIDAC [facility] Insulin Human Lispro 30 unit 08/27/24 07:00 08/28/24 11:59 Insulin Lispro 100 Unit/Ml Insuln.Pen SC Not Given TIDAC [facility] Insulin Human Lispro 0 unit 08/26/24 16:00 08/28/24 11:59 Insulin Lispro 100 Unit/Ml Insuln.Pen SC Not Given ACHS [facility] Protocol Loratadine 10 mg 08/27/24 10:00 Loratadine 10 Mg Tablet PO DAILY PRN ALLERGIES Nitroglycerin 0.4 mg 08/26/24 15:59 Nitroglycerin (Inpatient Use) 0.4 Mg Tab.Subl SL Q5M PRN CARDIAC/CHEST PAIN Oxycodone HCl 2.5 - 5 mg 08/26/24 15:59 08/28/24 08:08 Oxycodone 5 Mg Tablet PO 5 mg Q4H PRN PRN Administration Pain Score 4-10 Pantoprazole Sodium 40 mg 08/27/24 10:00 08/28/24 08:11 Pantoprazole Sodium 40 Mg Tablet PO 40 mg DAILY ITALIA Administration Paroxetine HCl 20 mg 08/27/24 10:00 08/28/24 08:10 Paroxetine 20 Mg Tablet PO 20 mg DAILY ITALIA Administration Prochlorperazine Edisylate 5 mg 08/26/24 15:59 Prochlorperazine 10 Mg/2 Ml Vial IV Q4H PRN PRN Breakthrough Nausea/Vomiting Rivaroxaban 20 mg 08/27/24 10:00 08/27/24 14:24 Rivaroxaban 20 Mg Tablet PO Not Given DAILY ITALIA Senna/Docusate Sodium 2 tablet 08/26/24 15:59 Senna/Docusate Sodium 1 Tablet PO BID PRN PRN Constipation Sodium Chloride 10 - 40 ml 08/26/24 15:50 08/28/24 06:20 0.9% Saline Lock 10 Ml Syringe IV 10 ml UD PRN Administration SALINE FLUSH Trazodone HCl 50 mg 08/26/24 22:00 08/27/24 21:34 Trazodone 50 Mg Tablet PO 50 mg QHS ITALIA Administration Vancomycin Protocol 1 lab 08/30/24 01:00 Vancomycin Trough/Random Due MC 08/30/24 03:00 DAILY ITALIA PFSH Medical History Anxiety Diabetes Arthritis with psoriasis Former smoker Asthma ICD (implantable cardioverter-defibrillator) in place Pacemaker Congestive heart failure (CHF) Myocardial infarct Coronary artery disease Hypertension Abnormal lead impedance of implantable cardioverter-defibrillator Clostridioides difficile infection Hyperglycemia due to type 2 diabetes mellitus Acute kidney injury Gout of right knee Pseudogout of right knee Effusion, right knee Right knee pain Constipation Claudication Essential (primary) hypertension History of non-ST elevation myocardial infarction (NSTEMI) (10/11/13) NSVT (nonsustained ventricular tachycardia) Obesity Secondary pulmonary arterial hypertension Pulmonary embolism (09/2013) COPD (chronic obstructive pulmonary disease) Chronic kidney disease Type 2 diabetes mellitus Old inferior wall myocardial infarction (02/27/05) DVT (deep venous thrombosis) IBS (irritable bowel syndrome) Ischemic cardiomyopathy Atherosclerosis of [place] coronary artery of [place] heart without angina pectoris Hyperlipidemia Home Medications ?Medication ?Instructions ?Recorded ?Last Taken ?Type atorvastatin 80 mg tablet 80 mg PO DAILY cholesterol 10/05/13 06/13/24 History nitroglycerin 0.4 mg sublingual 0.4 mg sublingual Q5M PRN Angina 10/14/13 Unknown Rx tablet pain #25 tabs albuterol sulfate 90 mcg/actuation 6.7 g inhalation Q4H PRN COPD 07/22/16 12/02/22 History aerosol inhaler hydroxyzine HCl 50 mg tablet 50 mg PO QHS sleep 03/14/17 06/13/24 History losartan 50 mg tablet 50 mg PO DAILY blood pressure 02/01/18 06/14/24 History trazodone 50 mg tablet 50 mg PO QHS sleep 02/25/20 06/13/24 History carvedilol 6.25 mg tablet 6.25 mg PO BID blood pressure 05/31/20 06/14/24 History umeclidinium 62.5 mcg-vilanterol 1 puff PO DAILY COPD 05/31/20 06/14/24 History 25 mcg/actuation powdr for inhalation ezetimibe 10 mg tablet 10 mg PO DAILY Cholesterol 01/03/22 06/14/24 History rivaroxaban 20 mg tablet (Xarelto) 20 mg PO DAILY hx- DVT 01/03/22 08/25/24 History allopurinol 100 mg tablet 100 mg PO BID GOUT 03/06/22 06/14/24 History linaclotide 145 mcg capsule 145 mcg PO DAILY 03/07/23 06/14/24 History (Linzess) dapagliflozin propanediol 5 mg 5 mg PO DAILY 07/13/23 06/14/24 History tablet (Farxiga) levocetirizine 5 mg tablet 5 mg PO DAILY itch 06/14/24 06/14/24 History oxycodone 5 mg tablet 5 mg PO Q6H pain 06/14/24 Unknown History dulaglutide 0.75 mg/0.5 mL 0.75 mg subcut QWEEK blood sugar 06/17/24 Unknown History subcutaneous pen injector (Trulicity) furosemide 40 mg tablet 40 mg PO BIDCM diuretic #60 tabs 06/17/24 Unknown Rx insulin glargine 100 unit/mL (3 60 unit (0.6 mL) subcut 2XD 06/17/24 06/14/24 Rx mL) subcutaneous pen (Lantus Diabetes #15 mL Solostar U-100 Insulin) insulin lispro 100 unit/mL 30 unit (0.3 mL) subcut 3XD 06/17/24 06/14/24 Rx subcutaneous pen (Humalog KwikPen diabetes #15 mL (U-100) Insulin) paroxetine HCl 20 mg tablet (Paxil) 20 mg PO DAILY #60 tabs 06/17/24 Unknown Rx Allergy/AdvReac Type Severity Reaction Status Date / Time No Known Allergies Allergy Verified 08/26/24 11:34 Family History Father CAD (coronary artery disease) Diabetes Colon cancer Heart disease Hypertension Brother CAD (coronary artery disease) Diabetes Kidney disease Mother Cancer Leukemia Brother Diabetes Surgical History Amputated toe of left foot History of cholecystectomy History of implantable cardiac defibrillator (ICD) (02/07/18) History of left heart catheterization (10/13/13) History of coronary artery stent placement (02/27/05) H/O coronary artery bypass surgery (04/18/99) Hx of cataract extraction Social History household members: none housing: house Smoking Status: Former smoker pack-years: 39 second hand exposure: No alcohol intake: former substance use type: does not use caffeine: Yes (1/day) what type of physical activity do you participate in: none Review of Systems (Anesthesia) ROS Narrative System reviewed and no additional complaints, except as documented.
--- NOTE | 2024-08-28 15:30 | AMP_PTH ---
PATIENT: PETE ORTIZ LOC: [facility] U#:[id number] AGE/SX: 69/M ROOM: [facility] RE08/26/[address]: Dr. Ross Alejandro DO : 1955 BED: 1 DIS: 09/02/2024 SPEC #: [id number] RECD: 08/29/24 07:15 STATUS: TABBY WEI #: [id number] MANPREET: 08/28/24 15:[address]: Cornelio Bowers DEPT: SURGICAL PATHOLOGY RECD BY: Leland Beck ENTERED: 08/29/24 10:39 SP TYPE: Amputation OTHR DR: MD Dr. Ross Chow DO Dr. Prakash Chand, MD Dr. Robert Leininger, MD Tissues: A - Foot, NOS Procedures: Decalcification bone/plaque Surgery Specimen Level V HEADER OPERATION: Transmetatarsal amputation left foot, muscle flap PRE-OP DIAGNOSIS: Acute osteomyelitis of left foot, diabetic foot ulcer, ulcer of right lower extremity with fat layer exposed TISSUE SUBMITTED: A- Left forefoot MICROSCOPIC DIAGNOSIS A. Foot, left, acute osteomyelitis of left foot, diabetic foot ulcer, ulcer of right lower extremity with fat layer exposed, amputation, transmetatarsal: Skin and soft tissue with necrosis and abscess. Acute osteomyelitis. MICROSCOPIC DESCRIPTION Slides are reviewed. GROSS DESCRIPTION A. Received in formalin labeled with the patient's name and date of . Designated as left forefoot is an 8.0 x 6.0 x 3.0 cm partial foot amputation with 3 attached digits (#3-#5). The skin is herbert and slightly wrinkled with focal peeling lesions and firm somewhat hemorrhagic lesions involving digits #4-#5; digit #3 is green-oh in color with an irregular, thickened nail and a 1.4 x 1.4 cm ulcerative lesion on the dorsal aspect. Sectioning reveals herbert-to focally erythematous, medullary bone of digits #3-#4. Also received within the container are multiple bone fragments surfaced by articular cartilage, soft tissue and fibrotendinous tissue, collectively measuring 6.9 x 5.9 x 1.9 cm in aggregate. Bottom Crane Operator sections are submitted in 3 cassettes, following decalcification as follows: A1-A2: Digit #3A3: Digit #4 PR 09/01/2024 CPT:61173,57676
--- NOTE | 2024-08-28 15:30 | AMP_PTH ---
PATIENT: PETE ORTIZ LOC: [facility] U#:[id number] AGE/SX: 69/M ROOM: [facility] RE08/26/[address]: Dr. Ross Alejandro DO : 1955 BED: 1 DIS: 09/02/2024 SPEC #: [id number] RECD: 08/29/24 07:15 STATUS: TABBY WEI #: [id number] MANPREET: 08/28/24 15:[address]: Cornelio Bowers DEPT: SURGICAL PATHOLOGY RECD BY: Leland Beck ENTERED: 08/29/24 10:39 SP TYPE: Amputation OTHR DR: MD Dr. Ross Chow DO Dr. Prakash Chand, MD Dr. Robert Leininger, MD Tissues: A - Foot, NOS Procedures: Decalcification bone/plaque Surgery Specimen Level V HEADER OPERATION: Transmetatarsal amputation left foot, muscle flap PRE-OP DIAGNOSIS: Acute osteomyelitis of left foot, diabetic foot ulcer, ulcer of right lower extremity with fat layer exposed TISSUE SUBMITTED: A- Left forefoot MICROSCOPIC DIAGNOSIS A. Foot, left, acute osteomyelitis of left foot, diabetic foot ulcer, ulcer of right lower extremity with fat layer exposed, amputation, transmetatarsal: Skin and soft tissue with necrosis and abscess. Acute osteomyelitis. MICROSCOPIC DESCRIPTION Slides are reviewed. GROSS DESCRIPTION A. Received in formalin labeled with the patient's name and date of . Designated as left forefoot is an 8.0 x 6.0 x 3.0 cm partial foot amputation with 3 attached digits (#3-#5). The skin is herbert and slightly wrinkled with focal peeling lesions and firm somewhat hemorrhagic lesions involving digits #4-#5; digit #3 is green-oh in color with an irregular, thickened nail and a 1.4 x 1.4 cm ulcerative lesion on the dorsal aspect. Sectioning reveals herbert-to focally erythematous, medullary bone of digits #3-#4. Also received within the container are multiple bone fragments surfaced by articular cartilage, soft tissue and fibrotendinous tissue, collectively measuring 6.9 x 5.9 x 1.9 cm in aggregate. Lead Principal Technical Architect sections are submitted in 3 cassettes, following decalcification as follows: A1-A2: Digit #3A3: Digit #4 MT 09/01/2024 CPT:[id number]
--- NOTE | 2024-08-28 16:09 | PCM.HP.STD ---
HPI - General General Date of Admission: 08/26/24 Chief Complaint: Fever and bloody discharge from left third toe for 6 days HPI Narrative PETE ORTIZ, is a 69 M who presents non healing ulcer left foot with acute osteomyelitis and cellulitis with infection and constitutional symptoms. pain and non healing ucler right foot for 2 years with contracture [facility] Medical History Anxiety Diabetes Arthritis with psoriasis Former smoker Asthma ICD (implantable cardioverter-defibrillator) in place Pacemaker Congestive heart failure (CHF) Myocardial infarct Coronary artery disease Hypertension Abnormal lead impedance of implantable cardioverter-defibrillator Clostridioides difficile infection Hyperglycemia due to type 2 diabetes mellitus Acute kidney injury Gout of right knee Pseudogout of right knee Effusion, right knee Right knee pain Constipation Claudication Essential (primary) hypertension History of non-ST elevation myocardial infarction (NSTEMI) (10/11/13) NSVT (nonsustained ventricular tachycardia) Obesity Secondary pulmonary arterial hypertension Pulmonary embolism (09/2013) COPD (chronic obstructive pulmonary disease) Chronic kidney disease Type 2 diabetes mellitus Old inferior wall myocardial infarction (02/27/05) DVT (deep venous thrombosis) IBS (irritable bowel syndrome) Ischemic cardiomyopathy Atherosclerosis of [place] coronary artery of [place] heart without angina pectoris Hyperlipidemia Home Medications ?Medication ?Instructions ?Recorded ?Last Taken ?Type atorvastatin 80 mg tablet 80 mg PO DAILY cholesterol 10/05/13 06/13/24 History nitroglycerin 0.4 mg sublingual 0.4 mg sublingual Q5M PRN Angina 10/14/13 Unknown Rx tablet pain #25 tabs albuterol sulfate 90 mcg/actuation 6.7 g inhalation Q4H PRN COPD 07/22/16 12/02/22 History aerosol inhaler hydroxyzine HCl 50 mg tablet 50 mg PO QHS sleep 03/14/17 06/13/24 History losartan 50 mg tablet 50 mg PO DAILY blood pressure 02/01/18 06/14/24 History trazodone 50 mg tablet 50 mg PO QHS sleep 02/25/20 06/13/24 History carvedilol 6.25 mg tablet 6.25 mg PO BID blood pressure 05/31/20 06/14/24 History umeclidinium 62.5 mcg-vilanterol 1 puff PO DAILY COPD 05/31/20 06/14/24 History 25 mcg/actuation powdr for inhalation ezetimibe 10 mg tablet 10 mg PO DAILY Cholesterol 01/03/22 06/14/24 History rivaroxaban 20 mg tablet (Xarelto) 20 mg PO DAILY hx- DVT 01/03/22 08/25/24 History allopurinol 100 mg tablet 100 mg PO BID GOUT 03/06/22 06/14/24 History linaclotide 145 mcg capsule 145 mcg PO DAILY 03/07/23 06/14/24 History (Linzess) dapagliflozin propanediol 5 mg 5 mg PO DAILY 07/13/23 06/14/24 History tablet (Farxiga) levocetirizine 5 mg tablet 5 mg PO DAILY itch 06/14/24 06/14/24 History oxycodone 5 mg tablet 5 mg PO Q6H pain 06/14/24 Unknown History dulaglutide 0.75 mg/0.5 mL 0.75 mg subcut QWEEK blood sugar 06/17/24 Unknown History subcutaneous pen injector ([facility]) furosemide 40 mg tablet 40 mg PO BIDCM diuretic #60 tabs 06/17/24 Unknown Rx insulin glargine 100 unit/mL (3 60 unit (0.6 mL) subcut 2XD 06/17/24 06/14/24 Rx mL) subcutaneous pen (Lantus Diabetes #15 mL Solostar U-100 Insulin) insulin lispro 100 unit/mL 30 unit (0.3 mL) subcut 3XD 06/17/24 06/14/24 Rx subcutaneous pen (Humalog KwikPen diabetes #15 mL (U-100) Insulin) paroxetine HCl 20 mg tablet (Paxil) 20 mg PO DAILY #60 tabs 06/17/24 Unknown Rx Allergy/AdvReac Type Severity Reaction Status Date / Time No Known Allergies Allergy Verified 08/26/24 11:34 Family History Father CAD (coronary artery disease) Diabetes Colon cancer Heart disease Hypertension Brother CAD (coronary artery disease) Diabetes Kidney disease Mother Cancer Leukemia Brother Diabetes Surgical History Amputated toe of left foot History of cholecystectomy History of implantable cardiac defibrillator (ICD) (02/07/18) History of left heart catheterization (10/13/13) History of coronary artery stent placement (02/27/05) H/O coronary artery bypass surgery (04/18/99) Hx of cataract extraction Social History household members: none housing: house Smoking Status: Former smoker pack-years: 39 second hand exposure: No alcohol intake: former substance use type: does not use caffeine: Yes (1/day) what type of physical activity do you participate in: none ROS Constitutional Constitutional: Reports systems reviewed and no addt'l complaints, except as documented, as per HPI, anorexia, body ache(s), change in weight, chills, daytime sleepiness, difficulty sleeping, excessive sweating, fatigue, fever(s), frequent falls, headache(s), increased appetite, lethargy, malaise, night sweats, poor appetite, snoring, stops breathing during sleep, weakness, weight gain, weight loss and other Vital Signs Vital Signs Vital Signs: 08/27/24 19:56 08/27/24 21:24 08/28/24 03:31 Temperature 98.6 F 97.7 F L Temperature Source Oral Temporal Pulse Rate 85 68 Respiratory Rate 18 19 H Respiratory Effort Normal Non-Labored Respiratory Depth Normal Respiratory Pattern Normal Blood Pressure 147/58 H 121/54 H Blood Pressure Mean 87 76 Blood Pressure Source Blood Pressure Position Blood Pressure Location Pulse Ox 94 95 Oxygen Delivery Method Room Air Room Air Room Air 08/28/24 03:31 08/28/24 08:10 08/28/24 09:30 Temperature 98.9 F Temperature Source Oral Pulse Rate 77 Respiratory Rate 16 Respiratory Effort Normal Non-Labored Normal Non-Labored Respiratory Depth Normal Normal Respiratory Pattern Normal Normal Blood Pressure 118/56 L Blood Pressure Mean 76 Blood Pressure Source Blood Pressure Position Blood Pressure Location Pulse Ox 93 Oxygen Delivery Method Room Air Room Air Room Air 08/28/24 11:51 08/28/24 11:51 08/28/24 15:08 Temperature 98.3 F 98.3 F 98.3 F Temperature Source Oral Oral Pulse Rate 73 73 73 Respiratory Rate 18 18 18 Respiratory Effort Respiratory Depth Respiratory Pattern Blood Pressure 118/61 118/61 118/61 Blood Pressure Mean 80 80 Blood Pressure Source Monitor Blood Pressure Position Semi-Fowlers Blood Pressure Location Right Arm Pulse Ox 94 94 94 Oxygen Delivery Method Room Air Room Air Room Air Weight Weight: 105.1 kg Body Mass Index (BMI) 28.2 Physical Exam Narrative non healing ulcer chronic right foot. left foot with acute infection and osteomyelitis left foot Const alert, oriented x3, no apparent distress, average body habitus, no limitations, healthy appearing and well nourished HEENT normocephalic, head/scalp atraumatic, hearing grossly normal bilaterally, external ears normal, EAC's normal, TM's normal bilaterally, external nose normal, nasal mucous membranes and turbinates normal, moist oral mucous membranes, oropharynx normal, dentition normal and gingiva normal Eyes PERRL, EOMs intact bilaterally, conjunctivae normal, no scleral icterus, no papilledema, normal visual nunes by confrontation and fundi normal bilaterally Neck full ROM, nuchal rigidity, no lymphadenopathy, supple, no meningeal signs, no JVD, thyroid normal, nodes and no carotid bruits Chest inspection of chest normal, palpation of chest normal, inspection of breasts normal and palpation of breasts normal Resp normal respiratory effort, normal air movement, no retractions, no use of accessory muscles, clear to auscultation bilaterally and percussion normal Results Lab / Micro Data 08/27/24 04:37 08/27/24 04:37 Labs: Laboratory Results - last 24 hr 08/27/24 16:29: POC Glucose 265 H 08/27/24 21:26: POC Glucose 226 H 08/28/24 02:00: Vancomycin Trough 16.3 H 08/28/24 08:06: POC Glucose 158 H 08/28/24 11:53: POC Glucose 164 H Micro: Microbiology 08/26/24 13:07 Urine, Clean Catch Urine Culture - Final Culture exhibits no growth. 08/26/24 20:15 Wound Drainage - Toe Gram Stain - Final 08/26/24 20:15 Wound Drainage - Toe Wound Culture - Preliminary Mixed Gram Pos & Gram Neg Org 08/26/24 11:50 Blood Culture (Wb) - Left Hand Blood Culture - Preliminary Staphylococcus aureus 08/26/24 11:31 Blood Culture (Wb) - Left Hand Bacteria Detection (PCR) - Final Meth. resistant Staph. aureus 08/26/24 11:31 Blood Culture (Wb) - Left Hand Blood Culture - Preliminary Staphylococcus aureus Assessment & Plan Assessment/Plan (1) Acute osteomyelitis of left foot: PLAN: plan for amputation left foot wtih flapo and muscle covering (2) Diabetic foot ulcer: PLAN: debridemnet right foot and transmetatarsal ampuation left foot (3) Ulcer of right lower extremity with fat layer exposed:
--- NOTE | 2024-08-28 16:18 | PN.HOSP_ITS ---
Reason for Visit Reason for Visit: Diagnoses Type 2 diabetes mellitus with diabetic polyneuropathy (08/26/24) Type 2 diabetes mellitus with foot ulcer (08/26/24) Non-pressure chronic ulcer of other part of unspecified foot with unspecified severity (08/26/24) Non-pressure chronic ulcer of unspecified part of right lower leg with fat layer exposed (08/26/24) Other acute osteomyelitis, right ankle and foot (08/26/24) Other acute osteomyelitis, left ankle and foot (08/26/24) Acute kidney failure, unspecified (08/26/24) Subjective Subjective Patient was seen and examined this morning, he is going to surgery today for transmetatarsal amputation of his left foot due to osteomyelitis and debridement of his right foot. The plan is for the patient to go to a senior care facility at the time of discharge from the hospital. Objective Data Objective Data Vital Signs: Vital Signs Temp Pulse Resp BP Pulse Ox O2 Del Method 98.3 F 73 18 118/61 94 Room Air 08/28/24 15:00 08/28/24 15:00 08/28/24 15:00 08/28/24 15:00 08/28/24 15:00 08/28/24 15:08 Oxygen Delivery Method Room Air Weight: 105.1 kg Body Mass Index (BMI) 28.2 Intake & Output: Intake and Output for Last 24 Hours 08/26/24 08/27/24 08/28/24 23:59 23:59 23:59 Intake Total 3820 / 3920 2013.33 / 2373.33 1110 / 1110 Output Total 300 / 300 Balance 3820 / 3920 1713.33 / 2073.33 1110 / 1110 Lab / Micro Data 08/27/24 04:37 08/27/24 04:37 Labs: Laboratory Results - last 24 hr 08/27/24 16:29: POC Glucose 265 H 08/27/24 21:26: POC Glucose 226 H 08/28/24 02:00: Vancomycin Trough 16.3 H 08/28/24 08:06: POC Glucose 158 H 08/28/24 11:53: POC Glucose 164 H Micro: Microbiology 08/26/24 13:07 Urine, Clean Catch Urine Culture - Final Culture exhibits no growth. 08/26/24 20:15 Wound Drainage - Toe Gram Stain - Final 08/26/24 20:15 Wound Drainage - Toe Wound Culture - Preliminary Mixed Gram Pos & Gram Neg Org 08/26/24 11:50 Blood Culture (Wb) - Left Hand Blood Culture - Preliminary Staphylococcus aureus 08/26/24 11:31 Blood Culture (Wb) - Left Hand Bacteria Detection (PCR) - Final Meth. resistant Staph. aureus 08/26/24 11:31 Blood Culture (Wb) - Left Hand Blood Culture - Preliminary Staphylococcus aureus 08/26/24 20:15 Wound - Left Foot Skin and Soft Tissue MRSA/MSSA (PCR - Final Physical Exam Narrative alert, oriented x3 and no apparent distress General Appearance: cooperative, well kempt and well developed Orientation / Consciousness: awake, oriented to person, oriented to place and oriented to time HEENT normocephalic, head/scalp atraumatic and moist oral mucous membranes Eyes PERRL, EOMs intact bilaterally and conjunctivae normal Neck supple, no JVD, thyroid normal and no carotid bruits General: trachea midline Resp normal respiratory effort, no retractions, no use of accessory muscles and clear to auscultation bilaterally Auscultation: Negative for rales, rhonchi or wheezes Cardio regular rate, regular rhythm, S1 normal heart sound, S2 normal heart sound, no murmurs, no rub and no gallops GI normal to inspection, nondistended, normoactive bowel sounds, soft to palpation, non-tender and non-distended Skin Skin Narrative: Patient's foot areas were not examined by me today, he has surgical dressing over his foot wounds. Neuro oriented x3, CN's II-XII intact bilaterally, moves all extremities, no focal motor deficits and no sensory deficits noted Sensorium / Orientation: awake and alert Speech: speech normal Psych affect normal Assessment & Plan Assessment/Plan (1) Acute osteomyelitis of left foot: PLAN: Plan 1. Osteomyelitis of the left foot-again patient will be taken for a left forefoot amputation today #2 neuropathic right foot ulcer secondary to poorly controlled type 2 diabetes- this foot ulcer will be debrided tomorrow by podiatry #3 poorly controlled type 2 diabetes-blood sugars will be monitored, sliding scale insulin will be administered and his basal insulin will be adjusted as needed #4 hyperlipidemia-patient is on atorvastatin and Zetia #5 chronic obstructive pulmonary disease-patient is on aerosol treatments #6 chronic use of anticoagulants-patient's Xarelto will be held due to surgery tomorrow #7 essential hypertension-patient will remain on his present medication Total clinical time spent by myself addressing the patient's medical issues, reviewing all of his data, and collaborating with patient's care team: 35 minutes Charges/Coding Visit Charges Inpatient E&M: 61132 Subs Hosp L2
--- NOTE | 2024-08-28 17:30 | PCM.POST.ANE ---
Anesthesia: Postop Eval I Current Vital Signs Temperature: 36 F Pulse Rate: 74 Blood Pressure: 131/62 Respiratory Rate: 14 Pulse Ox: 93 Assessment Airway patent: Yes Spontaneous unlabored respirations: Yes nausea: No Vomiting: No Anesthesia Complication: No Fluid Hydration Crystalloid volume administer (ml): 500 Total IV fluid infused: 500 Progress Note Anesthesia document: Postop Eval 1 completed: Yes
--- NOTE | 2024-08-28 21:33 | PCM.POSTANE2 ---
Anesthesia Postop Eval I Sum Postop Eval Completion status Anesthesia document: Postop Eval 1 completed: Yes Anesthesia Postop Eval I Summary Anesthesia Postop Eval I Summary: Anesthesia Postop Eval I: Assessment Summary Airway patent Yes 08/28/24 17:30 COMBINE [email or web address] Spontaneous unlabored Yes 08/28/24 17:30 COMBINE [email or web address] respirations Mental status nausea No 08/28/24 17:30 COMBINE [email or web address] Vomiting No 08/28/24 17:30 COMBINE [email or web address] Anesthesia Postop Eval I: Fluid Summary Crystalloid volume administer 500 08/28/24 17:30 COMBINE OPERATOR.[email or web address] (ml) Colloids volume administered ( ml) Blood Product volume administered (ml) Total IV fluid infused 500 08/28/24 17:30 COMBINE OPERATOR.[email or web address] Anesthesia Postop Eval I: Summary Notes Anesthesia Complication No 08/28/24 17:30 COMBINE OPERATOR.[email or web address] Anesthesia Complication Comment: Post-operative progress note Anesthesia: Postop Eval II Evaluation Mental status: Awake and Calm Pain Level: 0 nausea: No Vomiting: No Complications Anesthesia Complication: No
--- NOTE | 2024-08-28 21:33 | POSTOPAN2_ITS ---
Anesthesia Postop Eval I Sum Postop Eval Completion status Anesthesia document: Postop Eval 1 completed: Yes Anesthesia Postop Eval I Summary Anesthesia Postop Eval I Summary: Anesthesia Postop Eval I: Assessment Summary Airway patent Yes 08/28/24 17:30 GRANULATING [email or web address] Spontaneous unlabored Yes 08/28/24 17:30 GRANULATING BLENDER.[email or web address] respirations Mental status nausea No 08/28/24 17:30 GRANULATING BLENDER.[email or web address] Vomiting No 08/28/24 17:30 GRANULATING BLENDER.[email or web address] Anesthesia Postop Eval I: Fluid Summary Crystalloid volume administer 500 08/28/24 17:30 GRANULATING BLENDER.JYUN (ml) Colloids volume administered ( ml) Blood Product volume administered (ml) Total IV fluid infused 500 08/28/24 17:30 GRANULATING BLENDER.[email or web address] Anesthesia Postop Eval I: Summary Notes Anesthesia Complication No 08/28/24 17:30 GRANULATING BLENDER.[email or web address] Anesthesia Complication Comment: Post-operative progress note Anesthesia: Postop Eval II Evaluation Mental status: Awake and Calm Pain Level: 0 nausea: No Vomiting: No Complications Anesthesia Complication: No
--- NOTE | 2024-08-28 21:33 | POSTOPAN2_ITS ---
Anesthesia Postop Eval I Sum Postop Eval Completion status Anesthesia document: Postop Eval 1 completed: Yes Anesthesia Postop Eval I Summary Anesthesia Postop Eval I Summary: Anesthesia Postop Eval I: Assessment Summary Airway patent Yes 08/28/24 17:30 GRAVURE PRINTING [email or web address] Spontaneous unlabored Yes 08/28/24 17:30 GRAVURE PRINTING MACHINIST.[email or web address] respirations Mental status nausea No 08/28/24 17:30 GRAVURE PRINTING MACHINIST.[email or web address] Vomiting No 08/28/24 17:30 GRAVURE PRINTING MACHINIST.[email or web address] Anesthesia Postop Eval I: Fluid Summary Crystalloid volume administer 500 08/28/24 17:30 GRAVURE PRINTING MACHINIST.JYUN (ml) Colloids volume administered ( ml) Blood Product volume administered (ml) Total IV fluid infused 500 08/28/24 17:30 GRAVURE PRINTING MACHINIST.[email or web address] Anesthesia Postop Eval I: Summary Notes Anesthesia Complication No 08/28/24 17:30 GRAVURE PRINTING MACHINIST.[email or web address] Anesthesia Complication Comment: Post-operative progress note Anesthesia: Postop Eval II Evaluation Mental status: Awake and Calm Pain Level: 0 nausea: No Vomiting: No Complications Anesthesia Complication: No
--- NOTE | 2024-08-28 21:33 | PCM.POSTANE2 ---
Anesthesia Postop Eval I Sum Postop Eval Completion status Anesthesia document: Postop Eval 1 completed: Yes Anesthesia Postop Eval I Summary Anesthesia Postop Eval I Summary: Anesthesia Postop Eval I: Assessment Summary Airway patent Yes 08/28/24 17:30 COLORER HIDES AND SKINS.[email or web address] Spontaneous unlabored Yes 08/28/24 17:30 COLORER HIDES AND SKINS.[email or web address] respirations Mental status nausea No 08/28/24 17:30 COLORER HIDES AND SKINS.[email or web address] Vomiting No 08/28/24 17:30 COLORER HIDES AND SKINS.[email or web address] Anesthesia Postop Eval I: Fluid Summary Crystalloid volume administer 500 08/28/24 17:30 COLORER HIDES AND SKINS.JYUN (ml) Colloids volume administered ( ml) Blood Product volume administered (ml) Total IV fluid infused 500 08/28/24 17:30 COLORER HIDES AND SKINS.JYUN Anesthesia Postop Eval I: Summary Notes Anesthesia Complication No 08/28/24 17:30 COLORER HIDES AND SKINS.[email or web address] Anesthesia Complication Comment: Post-operative progress note Anesthesia: Postop Eval II Evaluation Mental status: Awake and Calm Pain Level: 0 nausea: No Vomiting: No Complications Anesthesia Complication: No
[2024-08-28] MEDS: hydrOXYzine PAM 25 MG Capsule PO (21:56)
[2024-08-29] VITALS (8 sets, daily range): BP systolic 114–144; BP diastolic 49–65; PULSE 73–99; RESP 14–18; TEMP 36.3–38.5; O2SAT 91–95; BMI 29.6
[2024-08-29] MEDS: 0.9% Saline Lock 10 ML Syringe IV ×2 (00:34→22:11)
[2024-08-29] MEDS: Vancomycin HCl 1,500 MG in 0.9% Normal Saline (500mL Bag) 500 ML 250 MG IV ×2 (02:07→13:47)
[2024-08-29] MEDS: Piperacil/Tazobactam 3.375 GM in 0.9% Normal Saline (50mL MB+) 50 ML IV ×3 (06:16→22:02)
[2024-08-29] MEDS: Senna/Docusate Sodium 1 Tablet 2 TABLET PO (08:21)
[2024-08-29] MEDS: Insulin Glargine-YFGN 100 UNIT/ML Pen 60 UNIT SC ×2 (09:17→17:03)
--- NOTE | 2024-08-29 09:54 | ECHOLC_ITS ---
Reason For Study Reason For Study: MURMUR Procedure This was a limited 2D transthoracic echocardiogram. The study was technically difficult. Contrast injection was performed. Exam performed portable in patient room. Left Ventricle Moderately dilated left ventricle. Severe global left ventricular systolic dysfunction. The LV ejection fraction is 30 %. There are regional wall motion abnormalities as specified. Inferolateral and basal inferoseptal hypokinesis. Right Ventricle ICD or pacer leads identified within the right ventricle. Normal systolic function. Atria The left and right atria are normal. Mitral Valve The mitral valve is structurally normal. No prolapse or stenosis seen. No mitral valve insufficiency. Tricuspid Valve Unable to estimate RV systolic pressure due to insufficient tricuspid regurgitant envelope. Aortic Valve Aortic sclerosis, no stenosis. Trivial aortic valve insufficiency. Pulmonic Valve The pulmonic valve is not well visualized. Great Vessels Normal sized aortic root. Pericardium/Pleural No pericardial effusion. Medication Diluted definity 2ml given slow IV push to enhance endocardial definition. MMode/2D Measurements & Calculations LVIDd: 5.0 cm IVSd: 1.2 cm LVIDs: 4.6 cm LVPWd: 1.5 cm LVAd ap4: 48.1 cm2 FS: 7.6 % LVLd ap4: 9.4 cm EDV(MOD-sp4): 202.4 ml EDV(sp4-el): 208.3 ml LVAs ap4: 37.6 cm2 LVLs ap4: 8.6 cm ESV(MOD-sp4): 136.1 ml ESV(sp4-el): 139.6 ml EF(MOD-sp4): 32.7 % EF(sp4-el): 33.0 % SV(MOD-sp4): 66.3 ml SV(sp4-el): 68.7 ml SI(MOD-sp4): 28.4 ml/m2 ECHO/Echo Limited w/Contrast Interpretation Summary The LV ejection fraction is 30 %. Inferolateral and basal inferoseptal hypokinesis unchanged from before. Ordering Physician: Medhat Peoples Referring Physician: HUMBLE FINCH Performed By: Jesenia Leong and Student
--- NOTE | 2024-08-29 11:06 | CON.PCM.ID_ITS ---
Assessment & Plan Assessment/Plan (1) Acute osteomyelitis of left foot: (2) MRSA bacteremia: PLAN: MRSA bacteremia due to L foot osteomyelitis with DM neuropathy - taken to OR 08/28/[address] Bowers for TMA. Wound cx with GNR, staph , strep-like, and GPR. Concern for endocarditis with pacer/ICD and splinter hemorrhages on fingers. Will repeat bcx, check TTE. Will need HARISH early next week. Cont vanc/zosyn. Will follow, thank you (3) Diabetic foot ulcer: HPI Consult Data Date of Consult: 08/29/24 HPI Narrative Reason for Consultation: bacteremia HPI Narrative: PETE ORTIZ, is a 69 M with DM neuropathy, presented 08/26 with about 5-6 days progressive fever, chills, weakness, and L foot pain/redness/swelling/drainage. No known inciting event. No n/v/d. Came to ED, admitted on vanc/zosyn, taken to OR yesterday by Dr. Bowers. Feeling better today, no issues with pacer/ICD, no new back or joint pain. Full ROS performed and neg except as noted above. [facility] Medical History Anxiety Diabetes Arthritis with psoriasis Former smoker Asthma ICD (implantable cardioverter-defibrillator) in place Pacemaker Congestive heart failure (CHF) Myocardial infarct Coronary artery disease Hypertension Abnormal lead impedance of implantable cardioverter-defibrillator Clostridioides difficile infection Hyperglycemia due to type 2 diabetes mellitus Acute kidney injury Gout of right knee Pseudogout of right knee Effusion, right knee Right knee pain Constipation Claudication Essential (primary) hypertension History of non-ST elevation myocardial infarction (NSTEMI) (10/11/13) NSVT (nonsustained ventricular tachycardia) Obesity Secondary pulmonary arterial hypertension Pulmonary embolism (09/2013) COPD (chronic obstructive pulmonary disease) Chronic kidney disease Type 2 diabetes mellitus Old inferior wall myocardial infarction (02/27/05) DVT (deep venous thrombosis) IBS (irritable bowel syndrome) Ischemic cardiomyopathy Atherosclerosis of [place] coronary artery of [place] heart without angina pectoris Hyperlipidemia Home Medications ?Medication ?Instructions ?Recorded ?Last Taken ?Type atorvastatin 80 mg tablet 80 mg PO DAILY cholesterol 0 10/05/13 06/13/24 History nitroglycerin 0.4 mg sublingual 0.4 mg sublingual Q5M PRN Angina 10/14/13 Unknown Rx tablet pain #25 tabs albuterol sulfate 90 mcg/actuation 6.7 g inhalation Q4 H PRN COPD 07/22/16 12/02/22 History aerosol inhaler hydroxyzine HCl 50 mg tablet 50 mg PO QHS sleep 06/13/24 History losartan 50 mg tablet 50 mg PO DAILY blood pressur e 02/01/18 06/14/24 History trazodone 50 mg tablet 50 mg PO QHS sleep 02/25/20 06/13/24 History carvedilol 6.25 mg tablet 6.25 mg PO BID blood pressur e 05/31/20 06/14/24 History umeclidinium 62.5 mcg-vilanterol 1 puff PO DAILY COPD 05/31/20 06/14/24 History 25 mcg/actuation powdr for inhalation ezetimibe 10 mg tablet 10 mg PO DAILY Cholesterol 1 03/05/21 06/14/24 History rivaroxaban 20 mg tablet (Xarelto) 20 mg PO DAILY hx- DVT 01/03/22 08/25/24 History allopurinol 100 mg tablet 100 mg PO BID GOUT 03/06/22 06/14/24 History linaclotide 145 mcg capsule 145 mcg PO DAILY 03/07/23 06/14/24 History (Linzesdavid) dapagliflozin propanediol 5 mg 5 mg PO DAILY 07/13/23 06/14/24 History tablet (Farxiga) levocetirizine 5 mg tablet 5 mg PO DAILY itch 06/14/24 06/14/24 History oxycodone 5 mg tablet 5 mg PO Q6H pain 06/14/24 Un known History dulaglutide 0.75 mg/0.5 mL 0.75 mg subcut QWEEK blood sugar 06/17/24 Unknown History subcutaneous pen injector (Trulicity) furosemide 40 mg tablet 40 mg PO BIDCM diuretic #60 tabs 06/17/24 Unknown Rx insulin glargine 100 unit/mL (3 60 unit (0.6 mL) subcu t 2XD 06/17/24 06/14/24 Rx mL) subcutaneous pen (Lantus Diabetes #15 mL Solostar U-100 Insulin) insulin lispro 100 unit/mL 30 unit (0.3 mL) subcut 3XD 06/17/24 06/14/24 Rx subcutaneous pen (Humalog KwgregorioPen diabetes #15 mL (U-100) Insulin) paroxetine HCl 20 mg tablet (Paxil) 20 mg PO DAILY #60 tabs 06/17/24 Unknown Rx Allergy/AdvReac Type Severity Reaction Status Date / Time No Known Allergies Allergy Verified 08/26/24 11:34 Family History Father CAD (coronary artery disease) Diabetes Colon cancer Heart disease Hypertension Brother CAD (coronary artery disease) Diabetes Kidney disease Mother Cancer Leukemia Brother Diabetes Surgical History Amputated toe of left foot History of cholecystectomy History of implantable cardiac defibrillator (ICD) (02/07/18) History of left heart catheterization (10/13/13) History of coronary artery stent placement (02/27/05) H/O coronary artery bypass surgery (04/18/99) Hx of cataract extraction Social History household members: none housing: house Smoking Status: Former smoker pack-years: 39 second hand exposure: No alcohol intake: former substance use type: does not use caffeine: Yes (1/day) what type of physical activity do you participate in: none Physical Exam Const alert, oriented x3 and no apparent distress General Appearance: cooperative HEENT normocephalic and head/scalp atraumatic Eyes PERRL and EOMs intact bilaterally Neck supple and No nodes Resp normal air movement and clear to auscultation bilaterally Cardio regular rate and regular rhythm Heart Sounds: murmur GI soft to palpation, non-tender and non-distended Extremity no clubbing, cyanosis or edema Extremity Narrative: No spine tenderness General Extremity: no tenderness to palpation of joints or extremities Skin Skin Narrative: reviewed wound photos. R hand splinter hemorrhage on index finger. L hand splinter hemorrhage on index and little fingers. No tenderness or swelling over pacer/ICD. Neuro CN's II-XII intact bilaterally Lab / Micro Data Attestation: I reviewed the patient's lab results. 08/27/24 04:37 08/27/24 04:37 Labs: Laboratory Results - last 24 hr 08/28/24 11:53: POC Glucose 164 H 08/28/24 21:43: POC Glucose 179 H 08/29/24 08:04: POC Glucose 321 H Micro: Microbiology 08/26/24 20:15 Wound Drainage - Toe Gram Stain - Final 08/26/24 20:15 Wound Drainage - Toe Wound Culture - Preliminary Gram negative leilani Staphylococcus aureus Gram positive leilani Alpha hemolytic organism 08/26/24 11:31 Blood Culture (Wb) - Left Hand Bacteria Detection (PCR) - Final Meth. resistant Staph. aureus 08/26/24 11:31 Blood Culture (Wb) - Left Hand Blood Culture - Preliminary Staphylococcus aureus 08/26/24 11:50 Blood Culture (Wb) - Left Hand Blood Culture - Final Staphylococcus aureus 08/26/24 13:07 Urine, Clean Catch Urine Culture - Final Culture exhibits no growth.
--- NOTE | 2024-08-29 12:31 | WOUNDNOTE ---
wound photo: left foot
--- NOTE | 2024-08-29 12:31 | WOUNDNOTE ---
wound photo: left foot
--- NOTE | 2024-08-29 12:34 | WOUNDNOTE ---
wound photo: left foot
--- NOTE | 2024-08-29 12:34 | WOUNDNOTE ---
wound photo: left foot
--- NOTE | 2024-08-29 12:34 | WOUNDNOTE ---
wound photo: right foot
--- NOTE | 2024-08-29 12:34 | WOUNDNOTE ---
wound photo: right foot
--- NOTE | 2024-08-29 12:35 | WOUNDNOTE ---
wound photo: right posterior lower leg
--- NOTE | 2024-08-29 12:35 | WOUNDNOTE ---
wound photo: right posterior lower leg
--- NOTE | 2024-08-29 16:11 | PCM.PN.HOSP ---
Reason for Visit Reason for Visit: Diagnoses Methicillin resistant Staphylococcus aureus infection as the cause of diseases classified elsewhere (08/26/24) Type 2 diabetes mellitus with diabetic polyneuropathy (08/26/24) Type 2 diabetes mellitus with foot ulcer (08/26/24) Non-pressure chronic ulcer of other part of unspecified foot with unspecified severity (08/26/24) Non-pressure chronic ulcer of unspecified part of right lower leg with fat layer exposed (08/26/24) Other acute osteomyelitis, right ankle and foot (08/26/24) Other acute osteomyelitis, left ankle and foot (08/26/24) Acute kidney failure, unspecified (08/26/24) Bacteremia (08/26/24) Subjective Subjective Patient was seen and examined, he refused to follow a diabetic diet and insisted on having a regular diet. Patient's blood culture was positive for MRSA and he was seen by infectious diseases today. Echocardiogram was obtained today which showed a reduced LV fraction of 30%, no evidence of vegetation was noted on the valves. Objective Data Objective Data Vital Signs: Vital Signs Temp Pulse Resp BP Pulse Ox O2 Del Method O2 Flow Rate 98.4 F 74 18 121/57 H 95 Nasal Cannula 2 08/29/24 14:59 08/29/24 14:59 08/29/24 14:59 08/29/24 14:59 08/29/24 14:59 08/29/24 14:59 08/29/24 14:59 Oxygen Flow Rate (L/min) 2 Oxygen Delivery Method Nasal Cannula Weight: 110.3 kg Body Mass Index (BMI) 29.6 Intake & Output: Intake and Output for Last 24 Hours 08/27/24 08/28/24 08/29/24 23:59 23:59 23:59 Intake Total 2012.33 / 2373.33 1770.75 / 2250.75 1880 / 1880 Output Total 300 / 300 5 / 5 Balance 1713.33 / 2073.33 1765.75 / 2245.75 188 / 1880 Lab / Micro Data 08/27/24 04:37 08/29/24 16:06 Labs: Laboratory Results - last 24 hr 08/28/24 21:43: POC Glucose 179 H 08/29/24 08:04: POC Glucose 321 H 08/29/24 11:16: POC Glucose 302 H Micro: Microbiology 08/26/24 20:15 Wound Drainage - Toe Gram Stain - Final 08/26/24 20:15 Wound Drainage - Toe Wound Culture - Preliminary Gram negative leilani Staphylococcus aureus Gram positive leilani Alpha hemolytic organism 08/26/24 20:15 Wound Drainage - Toe Anaerobic Culture - Preliminary 08/26/24 11:31 Blood Culture (Wb) - Left Hand Bacteria Detection (PCR) - Final Meth. resistant Staph. aureus 08/26/24 11:31 Blood Culture (Wb) - Left Hand Blood Culture - Preliminary Staphylococcus aureus 08/26/24 11:50 Blood Culture (Wb) - Left Hand Blood Culture - Final Staphylococcus aureus 08/26/24 13:07 Urine, Clean Catch Urine Culture - Final Culture exhibits no growth. 08/26/24 20:15 Wound - Left Foot Skin and Soft Tissue MRSA/MSSA (PCR - Final Radiography Diagnostic Testing: Radiology Impression Echocardiogram 08/29/24 09:54 Interpretation Summary The LV ejection fraction is 30 %. Inferolateral and basal inferoseptal hypokinesis unchanged from before. Ordering Physician: Medhat Peoples Referring Physician: HUMBLE FINCH Performed By: Jesenia Leong and Student Physical Exam Narrative alert, oriented x3 and no apparent distress General Appearance: cooperative, well kempt and well developed Orientation / Consciousness: awake, oriented to person, oriented to place and oriented to time HEENT normocephalic, head/scalp atraumatic and moist oral mucous membranes Eyes PERRL, EOMs intact bilaterally and conjunctivae normal Neck supple, no JVD, thyroid normal and no carotid bruits General: trachea midline Resp normal respiratory effort, no retractions, no use of accessory muscles and clear to auscultation bilaterally Auscultation: Negative for rales, rhonchi or wheezes Cardio regular rate, regular rhythm, S1 normal heart sound, S2 normal heart sound, no murmurs, no rub and no gallops GI normal to inspection, nondistended, normoactive bowel sounds, soft to palpation, non-tender and non-distended Skin Skin Narrative: Patient's foot areas were not examined by me today, he has surgical dressing over his foot wounds. Neuro oriented x3, CN's II-XII intact bilaterally, moves all extremities, no focal motor deficits and no sensory deficits noted Sensorium / Orientation: awake and alert Speech: speech normal Psych affect normal Assessment & Plan Assessment/Plan (1) MRSA bacteremia: (2) Acute osteomyelitis of left foot: PLAN: Plan 1. Osteomyelitis of the left foot-status post transmetatarsal amputation left foot, debridement of ulceration of the right foot-PT and OT will continue, patient will need to go to a [place] [facility] facility for short-term rehab services #2 neuropathic right foot ulcer secondary to poorly controlled type 2 diabetes-status postdebridement by podiatry #3 poorly controlled type 2 diabetes-blood sugars will be monitored, sliding scale insulin will be administered and his basal insulin will be adjusted as needed #4 hyperlipidemia-patient is on atorvastatin and Zetia #5 chronic obstructive pulmonary disease-patient is on aerosol treatments #6 chronic use of anticoagulants-patient is currently on Xarelto #7 essential hypertension-patient will remain on his present medication #8 MRSA bacteremia-infectious diseases is participating in his care, complicates care, management, recovery, and prognosis-patient had an echocardiogram today that showed no vegetations #9 noncompliance with medical regimen-patient insists on a regular diet, I have decided to place him on a regular diet and monitor his blood sugars. Total clinical time spent by myself addressing the patient's medical issues, reviewing all of his data, and collaborating with patient's care team: 35 minutes Charges/Coding Visit Charges Inpatient E&M: 34921 Subs Hosp L2
--- NOTE | 2024-08-29 16:27 | CASEMGMT ---
Discharge Planning Updates sent to [facility] with request to submit for precert. Saumya Evans DC Planning Asst.
--- NOTE | 2024-08-29 16:27 | CASEMGMT ---
Discharge Planning Updates sent to [facility] with request to submit for precert. Saumya Evans DC Planning Asst.
[2024-08-29 16:57] LABS: Anion Gap 9 (5-15); BUN 14 mg/dL (4-19); BUN/Creat Ratio 10.5 RATIO (10-20); Calcium,Total 7.8 mg/dL (7.6-11.0); Carbon Dioxide 25.1 mmol/L (21.0-32.0); Chloride 104 mmol/L (98-108); Estimated Creatinine Clearance 69.84 ml/min (50-250); Glucose 160 mg/dL (70-99); Magnesium 1.8 mg/dL (1.5-2.2); Potassium 3.4 mmol/L (3.3-5.1)
[2024-08-29] MEDS: Potassium Chloride Oral Tablet 20 MEQ 40 MEQ PO (20:06)
[2024-08-29] MEDS: hydrOXYzine PAM 25 MG Capsule PO (22:04)
[2024-08-30] MEDS: Vancomycin Trough/Random Due 1 LAB MC (02:05)
[2024-08-30 02:35] LABS: Vancomycin, Trough Level 23.0 ug/mL (5.0-15.0)
--- NOTE | 2024-08-30 02:43 | PCM.RX.CS ---
Consult Antibiotic Management Pharmacy has been consulted to manage selected antibiotic: Vancomycin Type of Intervention Type of Consult: Follow-up Labs Labs: Sodium 137 mmol/L (133-145) 08/29/24 16:06 Potassium 3.4 mmol/L (3.3-5.1) 08/29/24 16:06 Chloride 104 mmol/L (98-108) 08/29/24 16:06 Carbon Dioxide 25.1 mmol/L (21.0-32.0) 08/29/24 16:06 Anion Gap 9 (5-15) 08/29/24 16:06 BUN 14 mg/dL (4-19) 08/29/24 16:06 Creatinine 1.32 mg/dL (0.70-1.20) H 08/29/24 16:06 Est GFR (MDRD) Non-Af 58 (>60) L 08/29/24 16:06 BUN/Creatinine Ratio 10.5 RATIO (10-20) 08/29/24 16:06 Glucose 160 mg/dL (70-99) H 08/29/24 16:06 Vancomycin Trough 23.0 ug/mL (5.0-15.0) H 08/30/24 02:04 Microbiology Microbiology: Microbiology 08/26/24 20:15 Wound Drainage - Toe Gram Stain - Final 08/26/24 20:15 Wound Drainage - Toe Wound Culture - Preliminary Gram negative leilani Staphylococcus aureus Gram positive leilani Alpha hemolytic organism 08/26/24 20:15 Wound Drainage - Toe Anaerobic Culture - Preliminary 08/26/24 11:31 Blood Culture (Wb) - Left Hand Bacteria Detection (PCR) - Final Meth. resistant Staph. aureus 08/26/24 11:31 Blood Culture (Wb) - Left Hand Blood Culture - Preliminary Staphylococcus aureus 08/26/24 11:50 Blood Culture (Wb) - Left Hand Blood Culture - Final Staphylococcus aureus 08/26/24 13:07 Urine, Clean Catch Urine Culture - Final Culture exhibits no growth. 08/26/24 20:15 Wound - Left Foot Skin and Soft Tissue MRSA/MSSA (PCR - Final Pharmacy Plan for Drug Dosing Pharmacy Plan for Drug Dosing: VANCOMYCIN LEVEL RECEIVED Current Vancomycin Dose: 1500MG Q12 Number of Doses Received: 7 Vancomycin Level: 23 ML/MIN Hours Since Last Dose: 12 Renal Function: SCr 1.32 mg/dL , CrCl 69mL/min Renal Function Trend: stable Lab/Micro: MRSA in blood cx, prelim staph in wound cx Vancomycin Plan/Comments: 12 hour trough is supratherapeutic at 23 mg/dL (goal 15-20). Will hold dosing and get a random level in 12 hours. Pending Level: 08/30/24 @ 1400 - random Pharmacy Service will continue to monitor and adjust dosing as required.
[2024-08-30 03:00] VITALS: BP 109/56; PULSE 73; RESP 18; TEMP 36.8; O2SAT 99
[2024-08-30 03:38] VITALS: BMI 29.5
--- NOTE | 2024-08-30 05:47 | PCM.PN.SRG ---
Subjective Subjective Patient seen today now 2 days status post transmetatarsal amputation I reviewed his chart. Otherwise seems to be doing well it is noted that he does not want to follow a diabetic diet he does want to do continue to have a regular diet which is causing a significant noncompliance with his blood sugars and healing. Patient has no pain today. Still has significant neuro neuropathy to his feet he did have an echocardiogram which shows an ejection fraction of 30 but no signs of vegetation. Start dressing changes at this point. Objective Data Objective Data Vital Signs: Vital Signs Temp Pulse Resp BP Pulse Ox O2 Del Method O2 Flow Rate 98.3 F 73 18 109/56 L 99 Room Air 2 08/30/24 03:00 08/30/24 03:00 08/30/24 03:00 08/30/24 03:00 08/30/24 03:00 08/30/24 03:00 08/29/24 14:59 Oxygen Flow Rate (L/min) 2 Oxygen Delivery Method Room Air Weight: 109.9 kg Body Mass Index (BMI) 29.5 Intake & Output: Intake and Output for Last 24 Hours 08/28/24 08/29/24 08/30/24 23:59 23:59 23:59 Intake Total 1770.75 / 2250.75 3260 / 3700 490 / 490 Output Total 1200 / 2200 1000 / 1000 Balance 1765.75 / 2245.75 2060 / 1500 -510 / -510 Lab / Micro Data Attestation: I reviewed the patient's lab results. 08/27/24 04:37 08/29/24 16:06 Labs: Laboratory Results - last 24 hr 08/29/24 08:04: POC Glucose 321 H 08/29/24 11:16: POC Glucose 302 H 08/29/24 16:06: Sodium 137, Potassium 3.4, Chloride 104, Carbon Dioxide 25.1, Anion Gap 9, BUN 14, Creatinine 1.32 H, Estim Creat Clear Calc 69.84, Est GFR (MDRD) Non-Af 58 L, BUN/Creatinine Ratio 10.5, Glucose 160 H, Calcium 7.8, Magnesium 1.8 08/29/24 17:00: POC Glucose 138 H 08/29/24 22:09: POC Glucose 70 L 08/30/24 02:04: Vancomycin Trough 23.0 H Micro: Microbiology 08/26/24 20:15 Wound Drainage - Toe Gram Stain - Final 08/26/24 20:15 Wound Drainage - Toe Wound Culture - Preliminary Gram negative leilani Staphylococcus aureus Gram positive leilani Alpha hemolytic organism 08/26/24 20:15 Wound Drainage - Toe Anaerobic Culture - Preliminary 08/26/24 11:31 Blood Culture (Wb) - Left Hand Bacteria Detection (PCR) - Final Meth. resistant Staph. aureus 08/26/24 11:31 Blood Culture (Wb) - Left Hand Blood Culture - Preliminary Staphylococcus aureus 08/26/24 11:50 Blood Culture (Wb) - Left Hand Blood Culture - Final Staphylococcus aureus 08/26/24 13:07 Urine, Clean Catch Urine Culture - Final Culture exhibits no growth. 08/26/24 20:15 Wound - Left Foot Skin and Soft Tissue MRSA/MSSA (PCR - Final Radiography Diagnostic Testing: Radiology Impression Echocardiogram 08/29/24 09:54 Interpretation Summary The LV ejection fraction is 30 %. Inferolateral and basal inferoseptal hypokinesis unchanged from before. Ordering Physician: Medhat Peoples Referring Physician: HUMBLE FINCH Performed By: Jesenia Leong and Student Physical Exam Narrative Patient has had no pain in his feet postsurgery we did a debridement on the right foot with a graft application and bone resection along with a gastroc he is going to need dressing changes at this point. He is also status post transmetatarsal amputation with muscle flap and rotational flap no tendon lengthening. He also had bone anchors applied so that he could be partial weightbearing in the left foot I think if he goes to a penitentiary facility he should remain nonweightbearing on both. Today dressing changed flaps look stable sutures intact right foot graft is in place applied Adaptic dry dressing compression bandage he should follow-up outpatient with us. I will put in discharge orders. Left foot after amputation with bone anchors it is stable thus far, the right foot did have a fractured fifth metatarsal at this is very common for patient with severe cavovarus foot type he did do a gastroc to hopefully help take the pressures off at some point he will need to have the bone resected and the tendon transfers in order to finally get his foot back to normal but this is not someone we can do in the course of infection on the left foot. He will need more surgery on the right foot but probably needs to get his sugars under better control. Const alert, oriented x3, no apparent distress, average body habitus, no limitations, healthy appearing and well nourished Eyes PERRL, EOMs intact bilaterally, conjunctivae normal, no scleral icterus, no papilledema, normal visual nunes by confrontation and fundi normal bilaterally Chest inspection of chest normal, palpation of chest normal, inspection of breasts normal and palpation of breasts normal GI normal to inspection, nondistended, normoactive bowel sounds, soft to palpation, non-tender, non-distended, hepatosplenomegaly, no masses and no bruits Extremity no pedal edema Extremity Narrative: left foot with stable post op sutures intact flaps are viable, rigth foto dressing changed and stable. will f/u outpatient. Assessment & Plan Assessment/Plan (1) MRSA bacteremia: PLAN: Patient has bacteremia may or may not need PICC line as infectious diseases consulted. Left foot did not show any signs of infectious material after I removed the forefoot (2) Acute osteomyelitis of left foot: (3) Diabetic foot ulcer: PLAN: Ulcer and dressing change stable graft is in place. Sedrick intact. Recommend nonweightbearing both feet as this is going to be a chronic issue with the patient I am actually uncertain which foot I would pick to allow him to be weightbearing on so if he could do both nonweightbearing he would benefit everyone. (4) Acute on chronic heart failure with reduced ejection fraction (HFrEF, <= 40%): (5) Ulcer of right lower extremity with fat layer exposed:
--- NOTE | 2024-08-30 06:00 | PCM.OPRPT ---
Operative Report (Standard) Operative Information Date of Procedure: 08/28/24 Pre-Operative Diagnosis: 1. Osteomyelitis left foot with bacteremia 2. Fractured fifth metatarsal right foot 3. Nonhealing ulceration right plantar foot 4. Contracture joint ankle tendon right calf 5. Nonhealing ulceration left foot. 6. Cavovarus foot type bilateral Post-Operative Diagnosis: Same as above Surgery/Procedure Performed: 1. Transmetatarsal amputation left foot 2. Muscle flap with flexor digitorum brevis muscle left foot 3. Rotational advancement flap less than 10 cm? left foot 4. Partial bone excision right plantar foot, metatarsal 5. Gastroc recession open right calf 6. Debridement of ulceration into including subcutaneous tissue and situated prepared for skin graft prep site right foot 7. Application of Integra graft meshed 2 x 2. 100% was used none was wasted data virtualization consultant: No Type of Anesthesia: Local MAC RN Documented Start/Stop Times: Operation Date: 08/28/24 15:30 Case Time Into Pre-Op 08/28/24 13:07 Out of Pre-Op 08/28/24 16:09 Anesthesia Start 08/28/24 16:12 Into Room 08/28/24 16:12 Procedure Start 08/28/24 16:34 Procedure End 08/28/24 17:19 Anesthesia End 08/28/24 17:24 Out of Room 08/28/24 17:24 Into Recovery 08/28/24 17:26 Out of Recovery 08/28/24 18:00 Procedure Start Time: 16:34 Procedure Stop Time: 17:19 Select all DRAINS/GRAFTS/IMPLANTS that apply: Graft Graft details: 2 x 2 Integra meshed graft x 1 Estimated Blood Loss: 20 cc Specimen collected: No Description of surgery: Patient was seen as a consultation in the hospital for an acute infection left foot which the patient's blood pressure was low and possibly showing signs of sepsis patient did not have a high white count his white count never really got over 5 of his white blood cell count. The patient did have an acute infection he had already had amputations he has a very poorly controlled diabetes with nonhealing wound left foot that became severely infected and he has severe diabetic neuropathy. He also had a nonhealing ulceration right plantar fifth metatarsal for over 2 years untreated. Patient was seen in the preoperative holding area where chart was reviewed and consent was signed. I discussed with them all the risks complications of the surgery itself consisting of pain numbness bleeding chance for need for further amputation nonhealing reoccurrence limb loss even . He would like to proceed. The patient was seen he was given antibiotics. Patient was then placed on the operating table in normal supine position I applied a tourniquet to the left calf both lower extremities were then scrubbed prepped and draped in usual aseptic technique. Timeout was then performed. Attention was then directed to the right foot in which I debrided the ulceration into including subcutaneous tissue muscle and fascia and to the area where I prepped it for skin graft prep site by debriding all the necrotic tissue the rolled edges the wound itself after debridement of the callus and the wound measured approximately 1-1/2 x 1-1/2 x 0.3 in depth. I did not probe to bone after debriding it and removing all the necrotic tissue I flushed the area I made an incision on the lateral side of the fifth metatarsal base which I made a 1 cm incision down to including subcutaneous tissue I then planed the soft tissue in order to get it open for the power rasp I inserted a power rasp and bur down as much bone as possible to help reduce a bony prominence or contracture I could not remove the fracture at that point after debriding we flushed close this incision with 3-0 Prolene I then applied a meshed bilayer Integra graft directly to the right foot and then I stapled into place. I applied Adaptic and a dry dressing to the right side. Attention is then directed to the posterior calf patient that I placed the patient's foot in an everted position I made a 4 cm linear longed incision on the back of the posterior calf down to including subcutaneous tissue he had a significant hardened, glycosylated gastroc and fascia that seem to have bound together there was no planes or tissue planes. I therefore made the incision down into the subcutaneous tissue I then made an incision across the gastroc to dorsiflex the foot and noted there was excellent movement I was able to cut about 75% of it. After releasing it the patient did have significant better improvement in contracture release I then closed the incision with 3-0 Prolene and dressed accordingly. Attention was then directed to the left foot which were made to transverse semielliptical incisions over the front part of the foot near the metatarsals and the toes themselves. At that point we did turn on the tourniquet and inflated it to 250 mL mercury. At that point I made 2 transverse semielliptical fishmouth incisions at the distal aspect I then disarticulated the rest of the toes of the fifth the fourth the third and the second which were then removed completely and disarticulated. There was no excess purulent drainage. At that point then once I removed the toes then I used a sagittal saw and created a parabola of metatarsals 234 and 5 by resecting them. I took out the plantar plates. I then flushed the area with copious amounts normal sterile saline. Next I used I dissected the muscle flap free from the soft tissue on the plantar surface once removing it and dissecting I was able to perform the muscle flap. At that point then I made 2 drill holes into the second metatarsal and the fourth metatarsal respectively from dorsal to plantar with a K wire. I therefore then took a 2-0 Prolene suture I went through the muscle flap distally and then up around back through the bone and back out from the distal area in a horizontal mattress fashion and then tied it completely so where the flap was able to rotate and be pushed on top of the bones. I performed this on both the second metatarsal and the fourth metatarsal. Excellent stabilization and been performed. At point then there was noted to be an ulceration on the plantar lateral surface in which I had a cut this area completely then made a circumferential incision on the plantar flap which was a 2 cm wound I cut this out completely after resecting it and cutting out the wound then made an rotational flap just plantar to it. I made a U-shaped plantar lobe and rotated this in place in order to cover the other ulceration that was cut out. After undermining the tissue the flap measured 2 cm x 1 cm in order to close the other wound after cutting this and rotating and undermining it down to the subcutaneous tissue I then closed this with 2-0 Prolene I then removed any excess tissue so there is no dogears on the amputation site I then closed the site with 2-0 Prolene in a simple and vertical mattress suture technique. I used coco as well. The rest of it was then dressed with Adaptic dry dressing compression bandage she tolerated procedure well without complications he was sent back to the room blood loss was minimal at that point we will follow-up with him plan for surgical dressings and see him outpatient. Surgical Findings: Fractured fifth metatarsal with nonhealing ulceration and prominent bone formation could not remove this secondary to tendon transfer not able to be done during full course of infection or ulceration Complications Complications: No Admit VTE Documentation VTE Present on Admission: No VTE Mechan Device Prophylaxis: SCD's
[2024-08-30] MEDS: Piperacil/Tazobactam 3.375 GM in 0.9% Normal Saline (50mL MB+) 50 ML IV ×3 (06:03→21:35)
[2024-08-30 06:40] VITALS: O2SAT 94
[2024-08-30 08:35] VITALS: BP 114/59; PULSE 74; RESP 16; TEMP 37.1; O2SAT 94
[2024-08-30] MEDS: 0.9% Saline Lock 10 ML Syringe IV (08:45)
[2024-08-30] MEDS: Insulin Glargine-YFGN 100 UNIT/ML Pen 60 UNIT SC ×2 (09:40→17:10)
[2024-08-30 15:00] VITALS: O2SAT 88
[2024-08-30 15:04] LABS: Vancomycin, Random Level 17.0 ug/mL (0.0-15.0)
[2024-08-30 15:05] VITALS: BP 120/57; PULSE 71; RESP 18; TEMP 36.6; O2SAT 94
--- NOTE | 2024-08-30 15:52 | PCM.RX.CS ---
Consult Antibiotic Management Pharmacy has been consulted to manage selected antibiotic: Vancomycin Type of Intervention Type of Consult: Follow-up Suspected Infection Suspected Infection: Skin/Soft tissue Prior Doses of Antibiotics Prior Doses of Antibiotics Received/Current Regimen: HELD Labs Labs: Sodium 137 mmol/L (133-145) 08/29/24 16:06 Potassium 3.4 mmol/L (3.3-5.1) 08/29/24 16:06 Chloride 104 mmol/L (98-108) 08/29/24 16:06 Carbon Dioxide 25.1 mmol/L (21.0-32.0) 08/29/24 16:06 Anion Gap 9 (5-15) 08/29/24 16:06 BUN 14 mg/dL (4-19) 08/29/24 16:06 Creatinine 1.32 mg/dL (0.70-1.20) H 08/29/24 16:06 Est GFR (MDRD) Non-Af 58 (>60) L 08/29/24 16:06 BUN/Creatinine Ratio 10.5 RATIO (10-20) 08/29/24 16:06 Glucose 160 mg/dL (70-99) H 08/29/24 16:06 Vancomycin Trough 23.0 ug/mL (5.0-15.0) H 08/30/24 02:04 Random Vancomycin 17.0 ug/mL (0.0-15.0) H 08/30/24 14:06 Microbiology Microbiology: Microbiology 08/26/24 20:15 Wound Drainage - Toe Gram Stain - Final 08/26/24 20:15 Wound Drainage - Toe Wound Culture - Preliminary Acinetobacter radioresistens Meth. resistant Staph. aureus Corynebacterium striatum Actinomyces bovis 08/26/24 11:31 Blood Culture (Wb) - Left Hand Bacteria Detection (PCR) - Final Meth. resistant Staph. aureus 08/26/24 11:31 Blood Culture (Wb) - Left Hand Blood Culture - Final Meth. resistant Staph. aureus 08/26/24 11:50 Blood Culture (Wb) - Left Hand Blood Culture - Final Staphylococcus aureus 08/26/24 13:07 Urine, Clean Catch Urine Culture - Final Culture exhibits no growth. 08/26/24 20:15 Wound - Left Foot Skin and Soft Tissue MRSA/MSSA (PCR - Final Dosing Weight Weight used for dosin kg Goal Trough Goal Trough: 15-20 mcg/mL Pharmacy Plan for Drug Dosing Pharmacy Plan for Drug Dosing: VANCOMYCIN LEVEL RECEIVED Current Vancomycin Dose:1500 MG 12H Number of Doses Received: 0 Vancomycin Level:17 Hours Since Last Dose: 24 Renal Function: 1.32 mg/dL and 69.84 ml/min Renal Function Trend: relatively stable Lab/Micro: Prior MRSA, Vancomycin Plan/Comments: Dose was held for 12 hours. Level is therapeutic. Will reduce dose to 1250 mg q12h and continue to monitor. Pending Level: 09/01/2024 @0300 Pharmacy Service will continue to monitor and adjust dosing as required. Follow-Up Labs Follow-Up Labs: Trough: Vancomycin Date/Time Labs Ordered Labs to be done on [date and time ordered]: 09/01/2024 @0300
[2024-08-30] MEDS: Vancomycin HCl 1,250 MG in 0.9% Normal Saline (250mL Bag) 250 ML 167 MG IV (16:32)
--- NOTE | 2024-08-30 18:48 | PN.HOSP_ITS ---
Reason for Visit Reason for Visit: Diagnoses Methicillin resistant Staphylococcus aureus infection as the cause of diseases classified elsewhere (08/26/24) Type 2 diabetes mellitus with diabetic polyneuropathy (08/26/24) Type 2 diabetes mellitus with foot ulcer (08/26/24) Acute on chronic systolic (congestive) heart failure (08/26/24) Non-pressure chronic ulcer of other part of unspecified foot with unspecified severity (08/26/24) Non-pressure chronic ulcer of unspecified part of right lower leg with fat layer exposed (08/26/24) Other acute osteomyelitis, right ankle and foot (08/26/24) Other acute osteomyelitis, left ankle and foot (08/26/24) Acute kidney failure, unspecified (08/26/24) Bacteremia (08/26/24) Subjective Subjective Patient was seen and examined today, he has no specific complaints. We are waiting approval for the patient to go to an extended care facility for short- term rehab services. Patient remains on his present antibiotic coverage Objective Data Objective Data Vital Signs: Vital Signs Temp Pulse Resp BP Pulse Ox O2 Del Method O2 Flow Rate 97.9 F 71 18 120/57 L 94 Nasal Cannula 2 08/30/24 15:05 08/30/24 15:05 08/30/24 15:05 08/30/24 15:05 08/30/24 15:05 08/30/24 15:05 08/30/24 06:40 Oxygen Flow Rate (L/min) 2 Oxygen Delivery Method Nasal Cannula Weight: 109.9 kg Body Mass Index (BMI) 29.5 Intake & Output: Intake and Output for Last 24 Hours 08/28/24 08/29/24 08/30/24 23:59 23:59 23:59 Intake Total 1770.75 / 2250.75 3260 / 3700 1540 / 1540 Output Total 1200 / 2200 4040 / 4040 Balance 1765.75 / 2245.75 2060 / 1500 -2500 / -2500 Lab / Micro Data 08/27/24 04:37 08/29/24 16:06 Labs: Laboratory Results - last 24 hr 08/29/24 22:09: POC Glucose 70 L 08/30/24 02:04: Vancomycin Trough 23.0 H 08/30/24 08:53: POC Glucose 184 H 08/30/24 12:12: POC Glucose 192 H 08/30/24 14:06: Random Vancomycin 17.0 H 08/30/24 16:36: POC Glucose 249 H Micro: Microbiology 08/26/24 20:15 Wound Drainage - Toe Gram Stain - Final 08/26/24 20:15 Wound Drainage - Toe Wound Culture - Preliminary Acinetobacter radioresistens Meth. resistant Staph. aureus Corynebacterium striatum Actinomyces bovis 08/26/24 11:31 Blood Culture (Wb) - Left Hand Bacteria Detection (PCR) - Final Meth. resistant Staph. aureus 08/26/24 11:31 Blood Culture (Wb) - Left Hand Blood Culture - Final Meth. resistant Staph. aureus 08/26/24 11:50 Blood Culture (Wb) - Left Hand Blood Culture - Final Staphylococcus aureus 08/26/24 13:07 Urine, Clean Catch Urine Culture - Final Culture exhibits no growth. 08/26/24 20:15 Wound - Left Foot Skin and Soft Tissue MRSA/MSSA (PCR - Final Physical Exam Narrative alert, oriented x3 and no apparent distress General Appearance: cooperative, well kempt and well developed Orientation / Consciousness: awake, oriented to person, oriented to place and oriented to time HEENT normocephalic, head/scalp atraumatic and moist oral mucous membranes Eyes PERRL, EOMs intact bilaterally and conjunctivae normal Neck supple, no JVD, thyroid normal and no carotid bruits General: trachea midline Resp normal respiratory effort, no retractions, no use of accessory muscles and clear to auscultation bilaterally Auscultation: Negative for rales, rhonchi or wheezes Cardio regular rate, regular rhythm, S1 normal heart sound, S2 normal heart sound, no murmurs, no rub and no gallops GI normal to inspection, nondistended, normoactive bowel sounds, soft to palpation, non-tender and non-distended Skin Skin Narrative: Patient's foot areas were not examined by me today, he has surgical dressing over his foot wounds. Neuro oriented x3, CN's II-XII intact bilaterally, moves all extremities, no focal motor deficits and no sensory deficits noted Sensorium / Orientation: awake and alert Speech: speech normal Psych affect normal Assessment & Plan Assessment/Plan (1) MRSA bacteremia: (2) Acute osteomyelitis of left foot: PLAN: Plan 1. Osteomyelitis of the left foot-status post transmetatarsal amputation left foot, debridement of ulceration of the right foot-PT and OT will continue, patient will need to go to a intermediate facility for short-term rehab services #2 neuropathic right foot ulcer secondary to poorly controlled type 2 diabetes- status postdebridement by podiatry #3 poorly controlled type 2 diabetes-blood sugars will be monitored, sliding scale insulin will be administered and his basal insulin will be adjusted as needed #4 hyperlipidemia-patient is on atorvastatin and Zetia #5 chronic obstructive pulmonary disease-patient is on aerosol treatments #6 chronic use of anticoagulants-patient is currently on Xarelto #7 essential hypertension-patient will remain on his present medication #8 MRSA bacteremia-infectious diseases is participating in his care, complicates care, management, recovery, and prognosis-patient had an echocardiogram today that showed no vegetations #9 noncompliance with medical regimen-patient insists on a regular diet, I have decided to place him on a regular diet and monitor his blood sugars. Blood sugars appear to be under moderate control at this time. Total clinical time spent by myself addressing the patient's medical issues, reviewing all of his data, and collaborating with patient's care team: 35 minutes Charges/Coding Visit Charges Inpatient E&M: 41319 Subs Hosp L2
[2024-08-30 21:30] VITALS: BP 131/58; PULSE 74; RESP 18; TEMP 36.9; O2SAT 97
[2024-08-30] MEDS: hydrOXYzine PAM 25 MG Capsule PO (21:35)
[2024-08-31 03:39] VITALS: BP 119/59; PULSE 78; RESP 16; TEMP 36.5; O2SAT 94
[2024-08-31] MEDS: Vancomycin HCl 1,250 MG in 0.9% Normal Saline (250mL Bag) 250 ML 167 MG IV ×2 (03:41→16:04)
[2024-08-31 04:34] VITALS: BMI 32.3
[2024-08-31] MEDS: Piperacil/Tazobactam 3.375 GM in 0.9% Normal Saline (50mL MB+) 50 ML IV ×3 (05:31→22:05)
[2024-08-31 06:35] VITALS: O2SAT 93
[2024-08-31] MEDS: Insulin Glargine-YFGN 100 UNIT/ML Pen 60 UNIT SC (09:12)
[2024-08-31 09:15] VITALS: BP 111/50; PULSE 75; RESP 18; TEMP 36.6; O2SAT 96
--- NOTE | 2024-08-31 15:36 | PCM.PN.HOSP ---
Reason for Visit Chief Complaint: Fever and bloody discharge from left third toe for 6 days Subjective Subjective Patient was seen and examined today, he has no complaints for this examiner, blood sugars not well-controlled I will review the patient's insulin and make adjustments. Objective Data Objective Data Vital Signs: Vital Signs Temp Pulse Resp BP Pulse Ox O2 Del Method O2 Flow Rate 97.8 F 75 18 111/50 L 96 Nasal Cannula 2 08/31/24 09:15 08/31/24 09:15 08/31/24 09:15 08/31/24 09:15 08/31/24 09:15 08/31/24 09:15 08/31/24 09:15 Oxygen Flow Rate (L/min) 2 Oxygen Delivery Method Nasal Cannula Weight: 120.6 kg Body Mass Index (BMI) 32.3 Intake & Output: Intake and Output for Last 24 Hours 08/29/24 08/30/24 08/31/24 23:59 23:59 23:59 Intake Total 3260 / 3700 1865 / 1865 1745 / 1745 Output Total 1200 / 2200 4040 / 5240 4540 / 4540 Balance 2060 / 1500 -2175 / -3375 -2795 / -2795 Lab / Micro Data 08/27/24 04:37 08/29/24 16:06 Labs: Laboratory Results - last 24 hr 08/30/24 16:36: POC Glucose 249 H 08/30/24 21:33: POC Glucose 263 H 08/31/24 07:45: POC Glucose 262 H 08/31/24 12:09: POC Glucose 315 H Micro: Microbiology 08/26/24 20:15 Wound Drainage - Toe Gram Stain - Final 08/26/24 20:15 Wound Drainage - Toe Wound Culture - Preliminary Acinetobacter Lwoffi Meth. resistant Staph. aureus Corynebacterium striatum Actinomyces bovis Pseudopropionibacterium propio 08/26/24 11:31 Blood Culture (Wb) - Left Hand Bacteria Detection (PCR) - Final Meth. resistant Staph. aureus 08/26/24 11:31 Blood Culture (Wb) - Left Hand Blood Culture - Final Meth. resistant Staph. aureus 08/26/24 11:50 Blood Culture (Wb) - Left Hand Blood Culture - Final Staphylococcus aureus 08/26/24 13:07 Urine, Clean Catch Urine Culture - Final Culture exhibits no growth. 08/26/24 20:15 Wound - Left Foot Skin and Soft Tissue MRSA/MSSA (PCR - Final Physical Exam Narrative alert, oriented x3 and no apparent distress General Appearance: cooperative, well kempt and well developed Orientation / Consciousness: awake, oriented to person, oriented to place and oriented to time HEENT normocephalic, head/scalp atraumatic and moist oral mucous membranes Eyes PERRL, EOMs intact bilaterally and conjunctivae normal Neck supple, no JVD, thyroid normal and no carotid bruits General: trachea midline Resp normal respiratory effort, no retractions, no use of accessory muscles and clear to auscultation bilaterally Auscultation: Negative for rales, rhonchi or wheezes Cardio regular rate, regular rhythm, S1 normal heart sound, S2 normal heart sound, no murmurs, no rub and no gallops GI normal to inspection, nondistended, normoactive bowel sounds, soft to palpation, non-tender and non-distended Skin Skin Narrative: Patient's foot areas were not examined by me today, he has surgical dressing over his foot wounds. Neuro oriented x3, CN's II-XII intact bilaterally, moves all extremities, no focal motor deficits and no sensory deficits noted Sensorium / Orientation: awake and alert Speech: speech normal Psych affect normal Assessment & Plan Assessment/Plan (1) MRSA bacteremia: (2) Acute osteomyelitis of left foot: PLAN: Plan 1. Osteomyelitis of the left foot-status post transmetatarsal amputation left foot, debridement of ulceration of the right foot-PT and OT will continue, patient will need to go to a long-term facility for short-term rehab services #2 neuropathic right foot ulcer secondary to poorly controlled type 2 diabetes-status postdebridement by podiatry #3 poorly controlled type 2 diabetes-blood sugars will be monitored, sliding scale insulin will be administered and his basal insulin will be adjusted-I increased patient's regular insulin and basal insulin today #4 hyperlipidemia-patient is on atorvastatin and Zetia #5 chronic obstructive pulmonary disease-patient is on aerosol treatments #6 chronic use of anticoagulants-patient is currently on Xarelto #7 essential hypertension-patient will remain on his present medication #8 MRSA bacteremia-infectious diseases is participating in his care, complicates care, management, recovery, and prognosis-patient had an echocardiogram today that showed no vegetations #9 noncompliance with medical regimen-patient insists on a regular diet, I have decided to place him on a regular diet and monitor his blood sugars. Blood sugars appear to be under moderate control at this time. Total clinical time spent by myself addressing the patient's medical issues, reviewing all of his data, and collaborating with patient's care team: 35 minutes Charges/Coding Visit Charges Inpatient E&M: 71163 Subs Hosp L2
[2024-08-31 16:05] VITALS: BP 120/68; PULSE 88; RESP 18; TEMP 37.1; O2SAT 95
[2024-08-31] MEDS: 0.9% Saline Lock 10 ML Syringe IV ×2 (16:05→22:05)
[2024-08-31] MEDS: Insulin Glargine-YFGN 100 UNIT/ML Pen 65 UNIT SC (17:20)
[2024-08-31 22:00] VITALS: BP 120/68; PULSE 67; RESP 18; TEMP 36.8; O2SAT 93
[2024-08-31] MEDS: hydrOXYzine PAM 25 MG Capsule PO (22:10)
[2024-09-01] VITALS (7 sets, daily range): BP systolic 115–138; BP diastolic 56–60; PULSE 72–88; RESP 16; TEMP 36.5–36.9; O2SAT 91–98; BMI 28.4
[2024-09-01 03:29] LABS: Hematocrit 39.0 % (40-54); Hemoglobin 13.1 g/dL (13.0-16.5); Mean Corp Hgb Conc 33.6 g/dL (32-36); Mean Corpuscular Volume 83.5 fL (80-94); Mean Platelet Vol. 10.7 fl (6.2-12.0); Platelet Count 171 K/mm3 (150-450); RBC Distribution Width CV 17.1 % (11.6-14.6); RBC Distribution Width SD 52.0 fl (35.1-43.9); Red Blood Count 4.67 M/mm3 (4.6-6.2); White Blood Count 5.4 K/mm3 (4.4-11.0)
[2024-09-01 04:02] LABS: Anion Gap 12 (5-15); BUN 21 mg/dL (4-19); BUN/Creat Ratio 15.4 RATIO (10-20); Calcium,Total 8.8 mg/dL (7.6-11.0); Carbon Dioxide 28.0 mmol/L (21.0-32.0); Chloride 96 mmol/L (98-108); Estimated Creatinine Clearance 67.07 ml/min (50-250); Glucose 305 mg/dL (70-99); Magnesium 2.0 mg/dL (1.5-2.2); Potassium 3.7 mmol/L (3.3-5.1); Vancomycin, Trough Level 24.8 ug/mL (5.0-15.0)
--- NOTE | 2024-09-01 04:08 | PCM.RX.CS ---
Consult Antibiotic Management Pharmacy has been consulted to manage selected antibiotic: Vancomycin Type of Intervention Type of Consult: Follow-up Suspected Infection Suspected Infection: Bacteremia and Other (MRSA wound) Labs Labs: Sodium 136 mmol/L (133-145) 09/01/24 03:18 Potassium 3.7 mmol/L (3.3-5.1) 09/01/24 03:18 Chloride 96 mmol/L (98-108) L 09/01/24 03:18 Carbon Dioxide 28.0 mmol/L (21.0-32.0) 09/01/24 03:18 Anion Gap 12 (5-15) 09/01/24 03:18 BUN 21 mg/dL (4-19) H 09/01/24 03:18 Creatinine 1.35 mg/dL (0.70-1.20) H 09/01/24 03:18 Est GFR (MDRD) Non-Af 56 (>60) L 09/01/24 03:18 BUN/Creatinine Ratio 15.4 RATIO (10-20) 09/01/24 03:18 Glucose 305 mg/dL (70-99) H 09/01/24 03:18 Vancomycin Trough 24.8 ug/mL (5.0-15.0) H 09/01/24 03:18 Random Vancomycin 17.0 ug/mL (0.0-15.0) H 08/30/24 14:06 Microbiology Microbiology: Microbiology 08/26/24 20:15 Wound Drainage - Toe Gram Stain - Final 08/26/24 20:15 Wound Drainage - Toe Wound Culture - Preliminary Acinetobacter Lwoffi Meth. resistant Staph. aureus Corynebacterium striatum Actinomyces bovis Pseudopropionibacterium propio 08/26/24 11:31 Blood Culture (Wb) - Left Hand Bacteria Detection (PCR) - Final Meth. resistant Staph. aureus 08/26/24 11:31 Blood Culture (Wb) - Left Hand Blood Culture - Final Meth. resistant Staph. aureus 08/26/24 11:50 Blood Culture (Wb) - Left Hand Blood Culture - Final Staphylococcus aureus 08/26/24 13:07 Urine, Clean Catch Urine Culture - Final Culture exhibits no growth. 08/26/24 20:15 Wound - Left Foot Skin and Soft Tissue MRSA/MSSA (PCR - Final Pharmacy Plan for Drug Dosing Pharmacy Plan for Drug Dosing: VANCOMYCIN LEVEL RECEIVED Current Vancomycin Dose: 1250MG Q12 Number of Doses Received: 10 Vancomycin Level: 24.8 MG/DL Hours Since Last Dose: 11 Renal Function: SCr 1.35mg/dL, CrCl 67 mL/min Renal Function Trend: stable Lab/Micro: MRSA in wound Cx, MRSA bacteremia Vancomycin Plan/Comments: 11 hour trough is supratherapeutic at 24.8 mg/dL (goal 15-20). Will hold further dosing and get a random level in 12 hours. Pending Level: 09/01/24 @ 1500 Pharmacy Service will continue to monitor and adjust dosing as required.
[2024-09-01] MEDS: Piperacil/Tazobactam 3.375 GM in 0.9% Normal Saline (50mL MB+) 50 ML IV ×3 (05:28→23:27)
[2024-09-01] MEDS: Insulin Glargine-YFGN 100 UNIT/ML Pen 65 UNIT SC ×2 (09:15→18:18)
--- NOTE | 2024-09-01 10:11 | CASEMGMT ---
Addendum entered by Saumya Evans 09/01/24 15:49: Auth expires today and pt will not be medically ready until tomorrow. Updates sent for new precert. Saumya Evans DC Planning Asst. Addendum entered by Saumya Evans 09/01/24 10:16: RN CM updated. Saumya Evans DC Planning Asst. Original Note: Discharge Planning [address] has obtained auth to admit. Saumya Evans DC Planning Asst.
--- NOTE | 2024-09-01 12:02 | WOUNDNOTE ---
wound photo: left foot
--- NOTE | 2024-09-01 12:02 | WOUNDNOTE ---
wound photo: left foot
--- NOTE | 2024-09-01 12:03 | WOUNDNOTE ---
wound photo: left foot
--- NOTE | 2024-09-01 12:03 | WOUNDNOTE ---
wound photo: left foot
--- NOTE | 2024-09-01 13:53 | E[place]OTEE_ITS ---
Reason For Study Reason For Study: Endocarditis Medication HARISH probe 6VT-D (SN [id number]) passed without difficulty. No complications were noted. Cetacaine Topical [place] given X3 orally. Versed 2 mg given slow IVP. Fentanyl 50 mcg given slow IVP. Performed a rapid injection of agitated mix of 9 cc saline and 1cc air to assess for atrial septal defect. Left Ventricle Normal LV size. The left ventricular ejection fraction is 40 %. There is mild global hypokinesis of the left ventricle. Right Ventricle Normal RV size. ICD or pacer leads identified within the right ventricle. Normal systolic function. Atria Normal atrial septum. The left atrium is mildly enlarged. No thrombus is detected in the left atrial appendage. Normal right atrium. Mitral Valve Normal mitral valve. Mild-Moderate (1-2+) eccentric mitral valve insufficiency. Tricuspid Valve Normal tricuspid valve. Mild (1+) tricuspid valve insufficiency. Aortic Valve Trisinus/trileaflet aortic valve. Mild focal aortic valve calcification. Mild (1+) aortic valve insufficiency. Pulmonic Valve Normal pulmonic valve. Vessels Normal aortic root. Mild atherosclerosis of the aortic arch. Pericardium No pericardial effusion.
--- NOTE | 2024-09-01 13:53 | ECHOTEE_ITS ---
Reason For Study Reason For Study: Endocarditis Medication HARISH probe 6VT-D (SN [id number]) passed without difficulty. No complications were noted. Cetacaine Topical [place] given X3 orally. Versed 2 mg given slow IVP. Fentanyl 50 mcg given slow IVP. Performed a rapid injection of agitated mix of 9 cc saline and 1cc air to assess for atrial septal defect. Left Ventricle Normal LV size. The left ventricular ejection fraction is 40 %. There is mild global hypokinesis of the left ventricle. Right Ventricle Normal RV size. ICD or pacer leads identified within the right ventricle. Normal systolic function. Atria Normal atrial septum. The left atrium is mildly enlarged. No thrombus is detected in the left atrial appendage. Normal right atrium. Mitral Valve Normal mitral valve. Mild-Moderate (1-2+) eccentric mitral valve insufficiency. Tricuspid Valve Normal tricuspid valve. Mild (1+) tricuspid valve insufficiency. Aortic Valve Trisinus/trileaflet aortic valve. Mild focal aortic valve calcification. Mild (1+) aortic valve insufficiency. Pulmonic Valve Normal pulmonic valve. Vessels Normal aortic root. Mild atherosclerosis of the aortic arch. Pericardium No pericardial effusion.
--- NOTE | 2024-09-01 14:51 | PN.ID_ITS ---
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 Bowers for TMA. Wound cx with Acinetobacter, MRSA, corynebacter, actinomyces, rothia, and anaerobes. Concern for endocarditis with pacer/ICD and splinter hemorrhages on fingers. Will order HRAISH. Bcx neg since 08/29/24. Ok for picc. Will follow, d/w hospice case manager (3) Diabetic foot ulcer:
--- NOTE | 2024-09-01 14:51 | PN.ID_ITS ---
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 Bowers for TMA. Wound cx with Acinetobacter, MRSA, corynebacter, actinomyces, rothia, and anaerobes. Concern for endocarditis with pacer/ICD and splinter hemorrhages on fingers. Will order HARISH. Bcx neg since 08/29/24. Ok for picc. Will follow, d/w special education case manager (3) Diabetic foot ulcer:
[2024-09-01 16:27] LABS: Vancomycin, Random Level 16.1 ug/mL (0.0-15.0)
--- NOTE | 2024-09-01 17:35 | PCM.PN.HOSP ---
Reason for Visit Chief Complaint: Fever and bloody discharge from left third toe for 6 days Subjective Subjective Patient was seen and examined today, infectious diseases ordered a PICC line for the patient and a HARISH. Objective Data Objective Data Vital Signs: Vital Signs Temp Pulse Resp BP Pulse Ox O2 Del Method O2 Flow Rate 98.4 F 76 16 130/60 H 97 Nasal Cannula 2 09/01/24 16:13 09/01/24 16:13 09/01/24 16:13 09/01/24 16:13 09/01/24 16:13 09/01/24 16:15 09/01/24 16:15 Oxygen Flow Rate (L/min) 2 Oxygen Delivery Method Nasal Cannula Weight: 106 kg Body Mass Index (BMI) 28.4 Intake & Output: Intake and Output for Last 24 Hours 08/30/24 08/31/24 09/01/24 23:59 23:59 23:59 Intake Total 1865 / 1865 3150 / 3150 1550 / 1550 Output Total 4040 / 5240 7715 / 7715 2325 / 2325 Balance -2175 / -3375 -4565 / -4565 -775 / -775 Lab / Micro Data 09/01/24 03:18 09/01/24 03:18 Labs: Laboratory Results - last 24 hr 08/31/24 17:15: POC Glucose 230 H 08/31/24 22:08: POC Glucose 290 H 09/01/24 03:18: WBC 5.4, RBC 4.67, Hgb 13.1, Hct 39.0 L, MCV 83.5, MCH 28.1, MCHC 33.6, RDW Std Deviation 52.0 H, RDW Coeff of [place] 17.1 H, Plt Count 171, MPV 10.7, Sodium 136, Potassium 3.7, Chloride 96 L, Carbon Dioxide 28.0, Anion Gap 12, BUN 21 H, Creatinine 1.35 H, Estim Creat Clear Calc 67.07, Est GFR (MDRD) Non-Af 56 L, BUN/Creatinine Ratio 15.4, Glucose 305 H, Calcium 8.8, Phosphorus 3.1, Magnesium 2.0, Vancomycin Trough 24.8 H 09/01/24 08:03: POC Glucose 271 H 09/01/24 11:37: POC Glucose 298 H 09/01/24 14:58: Random Vancomycin 16.1 H 09/01/24 16:25: POC Glucose 267 H Micro: Microbiology 08/26/24 20:15 Wound Drainage - Toe Gram Stain - Final 08/26/24 20:15 Wound Drainage - Toe Wound Culture - Final Acinetobacter Lwoffi Meth. resistant Staph. aureus Corynebacterium striatum Actinomyces bovis Rothia kristinae 08/26/24 20:15 Wound Drainage - Toe Anaerobic Culture - Preliminary Anaerobic cocci Gram negative cocco bacillus 08/30/24 08:32 Blood Culture (Wb) - Anticubital Left Blood Culture - Preliminary No growth in 48 hours. 08/29/24 10:51 Blood Culture (Wb) - Left Forearm Blood Culture - Preliminary No growth in 48 hours. 08/26/24 11:31 Blood Culture (Wb) - Left Hand Bacteria Detection (PCR) - Final Meth. resistant Staph. aureus 08/26/24 11:31 Blood Culture (Wb) - Left Hand Blood Culture - Final Meth. resistant Staph. aureus 08/26/24 11:50 Blood Culture (Wb) - Left Hand Blood Culture - Final Staphylococcus aureus 08/26/24 13:07 Urine, Clean Catch Urine Culture - Final Culture exhibits no growth. 08/26/24 20:15 Wound - Left Foot Skin and Soft Tissue MRSA/MSSA (PCR - Final Physical Exam Narrative alert, oriented x3 and no apparent distress General Appearance: cooperative, well kempt and well developed Orientation / Consciousness: awake, oriented to person, oriented to place and oriented to time HEENT normocephalic, head/scalp atraumatic and moist oral mucous membranes Eyes PERRL, EOMs intact bilaterally and conjunctivae normal Neck supple, no JVD, thyroid normal and no carotid bruits General: trachea midline Resp normal respiratory effort, no retractions, no use of accessory muscles and clear to auscultation bilaterally Auscultation: Negative for rales, rhonchi or wheezes Cardio regular rate, regular rhythm, S1 normal heart sound, S2 normal heart sound, no murmurs, no rub and no gallops GI normal to inspection, nondistended, normoactive bowel sounds, soft to palpation, non-tender and non-distended Skin Skin Narrative: Patient's foot areas were not examined by me today, he has surgical dressing over his foot wounds. Neuro oriented x3, CN's II-XII intact bilaterally, moves all extremities, no focal motor deficits and no sensory deficits noted Sensorium / Orientation: awake and alert Speech: speech normal Psych affect normal Assessment & Plan Assessment/Plan (1) MRSA bacteremia: (2) Acute osteomyelitis of left foot: PLAN: Plan 1. Osteomyelitis of the left foot-status post transmetatarsal amputation left foot, debridement of ulceration of the right foot-PT and OT will continue, patient will need to go to a nursing home facility for short-term rehab services #2 neuropathic right foot ulcer secondary to poorly controlled type 2 diabetes-status postdebridement by podiatry #3 poorly controlled type 2 diabetes-blood sugars will be monitored, sliding scale insulin will be administered and his basal insulin will be adjusted-I increased patient's regular insulin and basal insulin today #4 hyperlipidemia-patient is on atorvastatin and Zetia #5 chronic obstructive pulmonary disease-patient is on aerosol treatments #6 chronic use of anticoagulants-patient is currently on Xarelto #7 essential hypertension-patient will remain on his present medication #8 MRSA bacteremia-infectious diseases is participating in his care, complicates care, management, recovery, and prognosis-patient will undergo a HARISH to rule out vegetations, patient will also have a PICC line inserted #9 noncompliance with medical regimen-patient insists on a regular diet, I have decided to place him on a regular diet and monitor his blood sugars. Blood sugars appear to be under moderate control at this time. Total clinical time spent by myself addressing the patient's medical issues, reviewing all of his data, and collaborating with patient's care team: 35 minutes Charges/Coding Visit Charges Inpatient E&M: 65150 Subs Hosp L2
[2024-09-01] MEDS: Vancomycin IV 1,000 MG/200 ML BAG 200 MG IV (18:16)
--- NOTE | 2024-09-01 18:33 | RAD_ITS ---
PROCEDURE: CXR FOR LINE PLACEMENT 09/01/2024 REASON FOR EXAM: PICC LINE PLACEMENT TECHNIQUE: CXR FOR LINE PLACEMENT COMPARISON: 08/26/2024 FINDINGS: Devices: Right upper extremity PICC with catheter terminating at the lower SVC. Left chest wall implanted cardiac device with lead at the right ventricular apex. Lungs/Pleura: Clear. No pneumothorax or sizable pleural effusion. Heart/Mediastinum: Mildly enlarged cardiac silhouette. Bones/Soft tissues: Mild degenerative changes of the spine. RAD/CXR for Line Placement IMPRESSION: Right upper extremity PICC, catheter tip at the lower SVC. No acute pulmonary disease. Mild cardiomegaly. Reading Location: [id number]
--- NOTE | 2024-09-01 18:33 | RAD_ITS ---
PROCEDURE: CXR FOR LINE PLACEMENT 09/01/2024 REASON FOR EXAM: PICC LINE PLACEMENT TECHNIQUE: CXR FOR LINE PLACEMENT COMPARISON: 08/26/2024 FINDINGS: Devices: Right upper extremity PICC with catheter terminating at the lower SVC. Left chest wall implanted cardiac device with lead at the right ventricular apex. Lungs/Pleura: Clear. No pneumothorax or sizable pleural effusion. Heart/Mediastinum: Mildly enlarged cardiac silhouette. Bones/Soft tissues: Mild degenerative changes of the spine. RAD/CXR for Line Placement IMPRESSION: Right upper extremity PICC, catheter tip at the lower SVC. No acute pulmonary disease. Mild cardiomegaly. Reading Location: [id number]
[2024-09-01] MEDS: 0.9% Saline Lock 10 ML Syringe IV (23:28)
[2024-09-01] MEDS: hydrOXYzine PAM 25 MG Capsule PO (23:29)
[2024-09-02] VITALS (8 sets, daily range): BP systolic 96–132; BP diastolic 53–91; PULSE 77–87; RESP 16–18; TEMP 36.5–36.9; O2SAT 93–96; BMI 29.0
[2024-09-02] MEDS: Piperacil/Tazobactam 3.375 GM in 0.9% Normal Saline (50mL MB+) 50 ML IV (05:35)
[2024-09-02] MEDS: Vancomycin IV 1,000 MG/200 ML BAG 200 MG IV (05:36)
[2024-09-02] MEDS: 0.9% Saline Lock 10 ML Syringe IV ×2 (05:37→16:50)
--- NOTE | 2024-09-02 07:56 | CASEMGMT ---
Discharge Planning Avenue has rec'd extension for pt to admit. He must admit by midnight 09/02/24. Saumya Evans DC Planning Asst.
--- NOTE | 2024-09-02 07:56 | CASEMGMT ---
Discharge Planning Avenue has rec'd extension for pt to admit. He must admit by midnight 09/02/24. Saumya Evans DC Planning Asst.
--- NOTE | 2024-09-02 11:15 | PCM.PN.ID ---
Physical Exam Narrative Feeling better, no fever, no n/v/d. HARISH soon. 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 Bowers for TMA. Wound cx with Acinetobacter, MRSA, corynebacter, actinomyces, rothia, and anaerobes. Concern for endocarditis with pacer/ICD and splinter hemorrhages on fingers. Pending HARISH. Bcx neg since 08/29/24. If HARISH is neg for sign of infection, will write for 4 weeks iv vanc with weekly labs, stop date 09/26/24. If HARISH shows infection, may need transfer for pacer removal. Will follow, d/w case management assistant (3) Diabetic foot ulcer:
--- NOTE | 2024-09-02 15:26 | PCM.TXEXTCAR ---
Diet Diet Order/Speech Therapy: INPATIENT Hospital Diet / Speech Therapy Order(s) 09/02/24 15:06 Diet: Regular - General Dietary Modifications:: Consistent Carbohydrate Type of Dietary Supplement:: Glucerna Shake Diet Comments: 120mL chocolate or strawberry with meals; extra 2oz protein Q tray Routine Orders/Code Status Routine Lab Work: - (Weekly CBC, BMP, trough vancomycin levels starting 09/08/2024-results to Dr. Medhat Peoples (ID)) Code Status: DNRCC-A (No intubation) DC O2, CPAP, BIPAP needs Home O2 Discharge instructions: No Wound(s) L first two toes: Wound Type: Neuropathic/Diabetic Foot Ulcer R lateral sole: Wound Type: Neuropathic/Diabetic Foot Ulcer L upper allan: Wound Type: Abrasion L knee: Wound Type: Abrasion R elbow: Wound Type: Abrasion right plantar/lateral foot: Wound Type: Neuropathic/Diabetic Foot Ulcer Dressing Change: betadine gauze left 2nd and 3rd toes: Wound Type: Neuropathic/Diabetic Foot Ulcer Dressing Change: betadine gauze right foot: Wound Type: Neuropathic/Diabetic Foot Ulcer Dressing Change: Adaptic left foot: Wound Type: L TMA site Dressing Change: betadine Adpatic right posterior lower leg: Wound Type: Surgical Incision Dressing Change: dry dressing Therapies Weight Bearing: Non weight bearing (Nonweightbearing bilaterally) Physical Therapy: Eval and Treat Occupational Therapy: Eval and Treat Problem/Diagnosis (1) Acute osteomyelitis of left foot: Status: Acute Code(s): M86.172 - Other acute osteomyelitis, left ankle and foot (2) MRSA bacteremia: Status: Acute Code(s): R78.81 - Bacteremia; B95.62 - Methicillin resistant Staphylococcus aureus infection as the cause of diseases classified elsewhere (3) Diabetic foot ulcer: Status: Acute Code(s): E11.621 - Type 2 diabetes mellitus with foot ulcer; L97.509 - Non-pressure chronic ulcer of other part of unspecified foot with unspecified severity (4) Pseudogout of right knee: Status: Acute Code(s): M11.261 - Other chondrocalcinosis, right knee Plan 1. Osteomyelitis of the left foot-status post transmetatarsal amputation left foot, debridement of ulceration of the right foot-PT and OT will continue, patient will need [facility] for [facility]-term rehab services #2 neuropathic right foot ulcer secondary to poorly controlled type 2 diabetes-status postdebridement by podiatry #3 poorly controlled type 2 diabetes-blood sugars will be monitored, sliding scale insulin will be administered and his basal insulin will be adjusted-I increased patient's regular insulin and basal insulin today #4 hyperlipidemia-patient is on atorvastatin and Zetia #5 chronic obstructive pulmonary disease-patient is on aerosol treatments #6 chronic use of anticoagulants-patient is currently on Xarelto #7 essential hypertension-patient will remain on his present medication #8 MRSA bacteremia-infectious diseases is participating in his care, complicates care, management, recovery, and prognosis-patient will undergo a HARISH to rule out vegetations, patient will also have a PICC line inserted #9 noncompliance with medical regimen-patient insists on a regular diet, I have decided to place him on a regular diet and monitor his blood sugars. Blood sugars appear to be under moderate control at this time. Total clinical time spent by myself addressing the patient's medical issues, reviewing all of his data, and collaborating with patient's care team: 35 minutes Allergies/Procedures Done in Hospital Allergies No Known Allergies Allergy (Verified 08/26/24 11:34) Procedures: 2-D Echocardiogram, Transesophageal Echo and - (Left transmetatarsal amputation, debridement of neuropathic ulceration right foot-08/30/2024) Type of Care/Length of Stay Estimated LOS: Convalescent Care Less Than 30 days Type of Care Needed: Skilled Rehab Potential: Good Prognosis: Good Additional Orders/Day of Discharge H&P will serve as current which was dated: 08/28/24 Day of Discharge: 09/02/24 Dietary and Speech Recommendations Dietitian Recommendations/Changes: Recommend 2200 calorie, carbohydrate-controlled/cardiac diet for better management of hyperglycemia and chronic conditions. Will continue 120mL Glucerna with meals (chocolate or strawberry). Will add extra 2 oz protein Q meal, pt refusing to take PO Jam to support wound healing. Plans for SNF at d/c. Discharge Plan Admission Admit Date/Time: 08/26/24 15:07 Primary Reason for Your Visit: Osteomyelitis left foot, neuropathic right foot ulceration, MRSA bacteremia Attending Provider: Ross Alejandro Primary Care Provider: Bulmaro Garcia Consulting Providers: Kali Lindsay; Cornelio Bowers; Medhat Peoples Discharge Orders/Prescriptions Prescriptions: New vancomycin 1,000 mg recon soln 1,000 mg IV Q12H 24 Days Qty: 48 0RF Rx Instructions: stop date 09/26/24. Dx: MRSA bacteremia. Weekly bmp, cbc, and vanc trough. Fax to [phone]. Routine picc care per protocol. acetaminophen 325 mg Tablet 650 mg PO Q6H PRN PRN (Reason: Pain 1-10 Or Fever>100.7) Qty: 0 0RF ipratropium-albuterol 0.5 mg-3 mg(2.5 mg base)/3 mL Solution For Nebulization 3 ml inhalation 4X/DAY Qty: 0 0RF allopurinol 100 mg Tablet 100 mg PO BID Qty: 0 0RF oxycodone 5 mg Tablet 5 mg PO Q6H 2 Days Qty: 8 0RF insulin lispro [Humalog KwikPen Insulin] 100 unit/mL Insulin Pen 35 unit subcut TIDAC Qty: 0 0RF insulin lispro [Humalog KwikPen Insulin] 100 unit/mL Insulin Pen See Protocol subcut ACHS Qty: 0 0RF Protocol: 4. Sliding Scale Insulin High-Med Dosing Condition: 150-199 mg/dl = 2 units Condition: 200-259 mg/dl = 4 units Condition: 260-324 mg/dl = 6 units Condition: 325-374 mg/dl = 8 units Condition: 375-409 mg/dl = 10 units Condition: 410-449 mg/dl = 11 units Condition: Greater than 449 call physician Protocol Text: Suggested for: - Patients on Total Daily Insulin Dose of 56-80 units - Patient who are known to be insulin resistant or septic HIGH MEDIUM DOSING ALGORITHM insulin glargine-yfgn 100 unit/mL (3 mL) Insulin Pen 65 unit subcut BIDAC Qty: 0 0RF sennosides-docusate sodium [Stimulant Laxative Plus] 8.6-50 mg Tablet 2 tab PO BID PRN PRN (Reason: Constipation) Qty: 0 0RF pantoprazole 40 mg Tablet,Delayed Release (Dr/Ec) 40 mg PO DAILY Qty: 0 0RF Continued hydroxyzine HCl 50 mg tablet 50 mg PO QHS losartan 50 mg tablet 50 mg PO DAILY dapagliflozin propanediol [Farxiga] 5 mg tablet 5 mg PO DAILY atorvastatin 80 MG tablet 80 mg PO DAILY nitroglycerin 0.4 MG tablet 0.4 mg sublingual Q5M PRN (Reason: Angina pain ) Qty: 25 0RF trazodone 50 mg tablet 50 mg PO QHS carvedilol 6.25 MG tablet 6.25 mg PO BID ezetimibe 10 mg tablet 10 mg PO DAILY Xarelto 20 mg tablet 20 mg PO DAILY paroxetine HCl [Paxil] 20 mg tablet 20 mg PO DAILY Qty: 60 0RF furosemide 40 MG tablet 40 mg PO BIDCM Qty: 60 0RF Discontinued albuterol sulfate 6.7 GM HFA aerosol inhaler 6.7 g inhalation Q4H PRN (Reason: COPD) umeclidinium-vilanterol 1 EACH blister with device 1 puff PO DAILY allopurinol 100 mg tablet 100 mg PO BID Linzess 145 mcg capsule 145 mcg PO DAILY levocetirizine 5 mg tablet 5 mg PO DAILY oxycodone 5 mg tablet 5 mg PO Q6H Trulicity 0.75 mg/0.5 mL pen injector 0.75 mg subcut QWEEK insulin lispro [Humalog KwikPen Insulin] 100 unit/mL insulin pen 30 unit subcut 3XD Qty: 15 0RF insulin glargine [Lantus Solostar U-100 Insulin] 100 unit/mL (3 mL) Insulin Pen 60 unit subcut 2XD Qty: 15 0RF Patient Comments: pt states continues to work on dosing with PCP Referrals / Follow Up: Cornelio Bowers MD [Med Staff - Active Staff] - Bulmaro Garcia MD [Primary Care Provider] - Medhat Peoples MD [Med Staff - Active Staff] - See Referral Note (In 2 weeks) Disposition Disposition (needs filled in before D/C Order can be placed): Group Home Facility
--- NOTE | 2024-09-02 15:47 | DS.PCM_ITS ---
Providers Date of Admission: 08/26/24 Date of Discharge: 09/02/24 Primary Care Physician: Dr. Bulmaro Garcia MD Consultations 08/26/24 15:59 Consult: Onc/Wound/music rehabilitation therapist Routine Comment: Consult: Podiatry Routine Consulting Provider: Cornelio Bowers Reason for Consult: Infected left diabetic foot ulcer with fever. EMERGENT Consult: No Notified: Yes Date Notified: 08/26/24 Time Notified: 16:02 Method of Notification: Answering Service 08/29/24 09:29 Consult: Infectious Disease Routine Consulting Provider: Medhat Peoples Reason for Consult: neuropathic foot infection EMERGENT Consult: No Notified: Yes Date Notified: 08/29/24 Time Notified: 09:29 Method of Notification: Verbal Reason For Visit: DIABETIC FOOT ULCER INFECTION Diagnosis Discharge Diagnosis (1) Acute osteomyelitis of left foot: Status: Acute Code(s): M86.172 - Other acute osteomyelitis, left ankle and foot (2) MRSA bacteremia: Status: Acute Code(s): R78.81 - Bacteremia; B95.62 - Methicillin resistant Staphylococcus aureus infection as the cause of diseases classified elsewhere (3) Diabetic foot ulcer: Status: Acute Code(s): E11.621 - Type 2 diabetes mellitus with foot ulcer; L97.509 - Non-pressure chronic ulcer of other part of unspecified foot with unspecified severity (4) Pseudogout of right knee: Status: Acute Code(s): M11.261 - Other chondrocalcinosis, right knee Plan 1. Osteomyelitis of the left foot-status post transmetatarsal amputation left foot, debridement of ulceration of the right foot-PT and OT will continue, patient will need to go to a shelter facility for short-term rehab services #2 neuropathic right foot ulcer secondary to poorly controlled type 2 diabetes- status postdebridement by podiatry #3 poorly controlled type 2 diabetes-blood sugars will be monitored, sliding scale insulin will be administered and his basal insulin will be adjusted-I increased patient's regular insulin and basal insulin today #4 hyperlipidemia-patient is on atorvastatin and Zetia #5 chronic obstructive pulmonary disease-patient is on aerosol treatments #6 chronic use of anticoagulants-patient is currently on Xarelto #7 essential hypertension-patient will remain on his present medication #8 MRSA bacteremia-infectious diseases is participating in his care, complicates care, management, recovery, and prognosis-patient will undergo a HARISH to rule out vegetations, patient will also have a PICC line inserted #9 noncompliance with medical regimen-patient insists on a regular diet, I have decided to place him on a regular diet and monitor his blood sugars. Blood sugars appear to be under moderate control at this time. Total clinical time spent by myself addressing the patient's medical issues, reviewing all of his data, and collaborating with patient's care team: 35 minutes Medications at Discharge Home Medications atorvastatin 80 mg tablet 80 mg PO DAILY cholesterol 10/05/13 nitroglycerin 0.4 mg sublingual tablet 0.4 mg sublingual Q5M PRN Angina pain #25 tabs 10/14/13 hydroxyzine HCl 50 mg tablet 50 mg PO QHS sleep 03/14/17 losartan 50 mg tablet 50 mg PO DAILY blood pressure 02/01/18 trazodone 50 mg tablet 50 mg PO QHS sleep 02/25/20 carvedilol 6.25 mg tablet 6.25 mg PO BID blood pressure 05/31/20 ezetimibe 10 mg tablet 10 mg PO DAILY Cholesterol 01/03/22 rivaroxaban 20 mg tablet (Xarelto) 20 mg PO DAILY hx- DVT 01/03/22 dapagliflozin propanediol 5 mg tablet (Farxiga) 5 mg PO DAILY 07/13/23 furosemide 40 mg tablet 40 mg PO BIDCM diuretic #60 tabs 06/17/24 paroxetine HCl 20 mg tablet (Paxil) 20 mg PO DAILY #60 tabs 06/17/24 acetaminophen 325 mg tablet 650 mg (2 x 325 mg) PO Q6H PRN PRN Pain 1-10 Or Fever>100.7 #0 tabs 09/02/24 allopurinol 100 mg tablet 100 mg PO BID #0 tabs 09/02/24 insulin glargine-yfgn 100 unit/mL (3 mL) subcutaneous pen 65 unit (0.65 mL) subcut BIDAC #0 mL 09/02/24 insulin lispro 100 unit/mL subcutaneous pen (Humalog KwikPen (U-100) Insulin) 35 unit (0.35 mL) subcut TIDAC #0 mL 09/02/24 insulin lispro 100 unit/mL subcutaneous pen (Humalog KwikPen (U-100) Insulin) See Protocol subcut ACHS #0 mL 09/02/24 ipratropium 0.5 mg-albuterol 3 mg (2.5 mg base)/3 mL nebulization soln 3 ml inhalation 4X/DAY #0 mL 09/02/24 oxycodone 5 mg tablet 5 mg PO Q6H 2 days #8 tabs 09/02/24 pantoprazole 40 mg tablet,delayed release 40 mg PO DAILY #0 tabs 09/02/24 sennosides 8.6 mg-docusate sodium 50 mg tablet (Stimulant Laxative Plus) 2 tab PO BID PRN PRN Constipation #0 tabs 09/02/24 vancomycin 1,000 mg intravenous injection 1,000 mg IV Q12H 24 days #48 ea 09/02/24 Hospital Course Operations - (Transmetatarsal amputation of the left foot, debridement of ulceration of right foot-08/28/2024) Procedures 2-D Echocardiogram and Transesophageal Echo Summary of Care Provided Minutes Spent on Discharge: 32 Hospital Course: This 69-year-old white male was seen in the emergency room at [facility] after being brought in by squad due to inability to take care of himself and generalized weakness. Labs obtained showed normal white blood cell count and hemoglobin, creatinine was elevated at 1.23 and BUN was 29. Urinalysis was unremarkable, examination of the lower extremities revealed neuropathic ulceration of the right and left foot. Patient was admitted to PCU and placed on IV antibiotics, he was seen by podiatry, podiatry performed a transmetatarsal amputation of the left foot and debridement of the right foot. Patient's blood culture was positive for MRSA and he was seen by infectious diseases and underwent a transthoracic echo and a transesophageal echo both of which were unremarkable. Patient was seen by PT and OT, due to the fact the patient was nonweightbearing, it was recommended that he go to a shelter facility for skilled services. PICC line was inserted for IV antibiotic usage. On 09/02/2024, patient was seen and examinedalert, oriented x3 and no apparent distress General Appearance: cooperative, well kempt and well developed Orientation / Consciousness: awake, oriented to person, oriented to place and oriented to time HEENT normocephalic, head/scalp atraumatic and moist oral mucous membranes Eyes PERRL, EOMs intact bilaterally and conjunctivae normal Neck supple, no JVD, thyroid normal and no carotid bruits General: trachea midline Resp normal respiratory effort, no retractions, no use of accessory muscles and clear to auscultation bilaterally Auscultation: Negative for rales, rhonchi or wheezes Cardio regular rate, regular rhythm, S1 normal heart sound, S2 normal heart sound, no murmurs, no rub and no gallops GI normal to inspection, nondistended, normoactive bowel sounds, soft to palpation, non-tender and non-distended Skin Skin Narrative: Patient's foot areas were not examined by me today, he has surgical dressing over his foot wounds. Neuro oriented x3, CN's II-XII intact bilaterally, moves all extremities, no focal motor deficits and no sensory deficits noted Sensorium / Orientation: awake and alert Speech: speech normal Psych affect normal Patient appears stable for discharge to shelter facility on 09/02/2024. Weight / BMI Weight Weight: 108.4 kg Body Mass Index (BMI) 29.0 ABG / Lab / Microbiology Data 09/01/24 03:18 09/01/24 03:18 Laboratory: Laboratory Results - last 24 hr 09/01/24 14:58: Random Vancomycin 16.1 H 09/01/24 16:25: POC Glucose 267 H 09/01/24 23:32: POC Glucose 343 H 09/02/24 08:50: POC Glucose 232 H 09/02/24 13:46: POC Glucose 207 H Microbiology: Microbiology 08/30/24 08:32 Blood Culture (Wb) - Anticubital Left Blood Culture - Final No growth in 5 days. 08/29/24 10:51 Blood Culture (Wb) - Left Forearm Blood Culture - Final No growth in 5 days. 08/26/24 20:15 Wound Drainage - Toe Gram Stain - Final 08/26/24 20:15 Wound Drainage - Toe Wound Culture - Final Acinetobacter Lwoffi Meth. resistant Staph. aureus Corynebacterium striatum Actinomyces bovis Rothia kristinae 08/26/24 20:15 Wound Drainage - Toe Anaerobic Culture - Final Anaerobic cocci Bacteroides xylanisolvens 08/26/24 11:31 Blood Culture (Wb) - Left Hand Bacteria Detection (PCR) - Final Meth. resistant Staph. aureus 08/26/24 11:31 Blood Culture (Wb) - Left Hand Blood Culture - Final Meth. resistant Staph. aureus 08/26/24 11:50 Blood Culture (Wb) - Left Hand Blood Culture - Final Staphylococcus aureus 08/26/24 13:07 Urine, Clean Catch Urine Culture - Final Culture exhibits no growth. 08/26/24 20:15 Wound - Left Foot Skin and Soft Tissue MRSA/MSSA (PCR - Final Radiography Diagnostic Testing: Radiology Impression Chest X-Ray 09/01/24 18:33 IMPRESSION: Right upper extremity PICC, catheter tip at the lower SVC. No acute pulmonary disease. Mild cardiomegaly. Reading Location: [id number] Instructions DC O2, CPAP, BIPAP Needs Home O2 Discharge instructions: No Meaningful Use Info Meaningful Use Meaningful Use Diagnoses (Choose all that apply): None applicable Discharge Plan Admission Admit Date/Time: 08/26/24 15:07 Primary Reason for Your Visit: Osteomyelitis left foot, neuropathic right foot ulceration, MRSA bacteremia Attending Provider: Ross Alejandro Primary Care Provider: Bulmaro Garcia Consulting Providers: Kali Lindsay; Cornelio Bowers; Medhat Peoples Discharge Orders/Prescriptions Prescriptions: New vancomycin 1,000 mg recon soln 1,000 mg IV Q12H 24 Days Qty: 48 0RF Rx Instructions: stop date 09/26/24. Dx: MRSA bacteremia. Weekly bmp, cbc, and vanc trough. Fax to [phone]. Routine picc care per protocol. acetaminophen 325 mg Tablet 650 mg PO Q6H PRN PRN (Reason: Pain 1-10 Or Fever>100.7) Qty: 0 0RF ipratropium-albuterol 0.5 mg-3 mg(2.5 mg base)/3 mL Solution For Nebulization 3 ml inhalation 4X/DAY Qty: 0 0RF allopurinol 100 mg Tablet 100 mg PO BID Qty: 0 0RF oxycodone 5 mg Tablet 5 mg PO Q6H 2 Days Qty: 8 0RF insulin lispro [Humalog KwikPen Insulin] 100 unit/mL Insulin Pen 35 unit subcut TIDAC Qty: 0 0RF insulin lispro [Humalog KwikPen Insulin] 100 unit/mL Insulin Pen See Protocol subcut ACHS Qty: 0 0RF Protocol: 4. Sliding Scale Insulin High-Med Dosing Condition: 150-199 mg/dl = 2 units Condition: 200-259 mg/dl = 4 units Condition: 260-324 mg/dl = 6 units Condition: 325-374 mg/dl = 8 units Condition: 375-409 mg/dl = 10 units Condition: 410-449 mg/dl = 11 units Condition: Greater than 449 call physician Protocol Text: Suggested for: - Patients on Total Daily Insulin Dose of 56-80 units - Patient who are known to be insulin resistant or septic HIGH MEDIUM DOSING ALGORITHM insulin glargine-yfgn 100 unit/mL (3 mL) Insulin Pen 65 unit subcut BIDAC Qty: 0 0RF sennosides-docusate sodium [Stimulant Laxative Plus] 8.6-50 mg Tablet 2 tab PO BID PRN PRN (Reason: Constipation) Qty: 0 0RF pantoprazole 40 mg Tablet,Delayed Release (Dr/Ec) 40 mg PO DAILY Qty: 0 0RF Continued hydroxyzine HCl 50 mg tablet 50 mg PO QHS losartan 50 mg tablet 50 mg PO DAILY dapagliflozin propanediol [Farxiga] 5 mg tablet 5 mg PO DAILY atorvastatin 80 MG tablet 80 mg PO DAILY nitroglycerin 0.4 MG tablet 0.4 mg sublingual Q5M PRN (Reason: Angina pain ) Qty: 25 0RF trazodone 50 mg tablet 50 mg PO QHS carvedilol 6.25 MG tablet 6.25 mg PO BID ezetimibe 10 mg tablet 10 mg PO DAILY Xarelto 20 mg tablet 20 mg PO DAILY paroxetine HCl [Paxil] 20 mg tablet 20 mg PO DAILY Qty: 60 0RF furosemide 40 MG tablet 40 mg PO BIDCM Qty: 60 0RF Discontinued albuterol sulfate 6.7 GM HFA aerosol inhaler 6.7 g inhalation Q4H PRN (Reason: COPD) umeclidinium-vilanterol 1 EACH blister with device 1 puff PO DAILY allopurinol 100 mg tablet 100 mg PO BID Linzess 145 mcg capsule 145 mcg PO DAILY levocetirizine 5 mg tablet 5 mg PO DAILY oxycodone 5 mg tablet 5 mg PO Q6H Trulicity 0.75 mg/0.5 mL pen injector 0.75 mg subcut QWEEK insulin lispro [Humalog KwikPen Insulin] 100 unit/mL insulin pen 30 unit subcut 3XD Qty: 15 0RF insulin glargine [Lantus Solostar U-100 Insulin] 100 unit/mL (3 mL) Insulin Pen 60 unit subcut 2XD Qty: 15 0RF Patient Comments: pt states continues to work on dosing with PCP Referrals / Follow Up: Cornelio Bowers MD [Med Staff - Active Staff] - Bulmaro Garcia MD [Primary Care Provider] - Medhat Peoples MD [Med Staff - Active Staff] - See Referral Note (In 2 weeks) Disposition Disposition (needs filled in before D/C Order can be placed): Residential Facility Charges/Coding Visit Charges Inpatient E&M: 42598 Disch Hosp >30min
--- NOTE | 2024-09-02 16:03 | CASEMGMT ---
TIA ESCOBAR completed 7000. Patient discharging to [facility] under skilled LOC. DC Materials Planner/Production Planner completing discharge to [facility].
--- NOTE | 2024-09-02 16:03 | CASEMGMT ---
TIA ESCOBAR completed 7000. Patient discharging to [facility] under skilled LOC. DC Roller Inspector And Mender completing discharge to [facility] [place].
--- NOTE | 2024-09-02 16:27 | CASEMGMT ---
Discharge Planning Discharge orders, signed med list, and transport time sent to [place] [facility] [place]. Physicians will transport pt by cot at 7p. Nursing, RN CM, patient, and his daughter (Janett) updated. Saumya Evans DC Planning Asst.
[2024-09-02] MEDS: Vancomycin HCl 1,000 MG in 0.9% Normal Saline (250mL Bag) 250 ML 250 MG IV (16:49)
[2024-09-02] MEDS: Insulin Glargine-YFGN 100 UNIT/ML Pen 65 UNIT SC (17:14)
== END 2024-09-02 17:51 | disposition skilled nursing facility (03) | DRG 617 ==
LOC: ED 15:10 → PCU 15:29
PROVIDERS: Hospitalist; Internal Medicine Infectious Disease; Podiatrist Foot & Ankle Surgery; Admitting Provider Internal Medicine; Emergency Provider Emergency Medicine; PCP Family Medicine; Visit Provider Internal Medicine
PROC: 0Y6N0Z0 Detachment at Left Foot, Complete, Open Approach (ICD-10-PCS; principal; 2024-08-28 15:15)
DX: E11.69 Type 2 diabetes mellitus with other specified complication (principal); R78.81 Bacteremia; M86.172 Other acute osteomyelitis, left ankle and foot; L03.116 Cellulitis of left lower limb; I13.0 Hypertensive heart and chronic kidney disease with heart failure and stage 1 through stage 4 chronic kidney disease, or unspecified chronic kidney disease; I50.22 Chronic systolic (congestive) heart failure; E11.22 Type 2 diabetes mellitus with diabetic chronic kidney disease; B95.62 Methicillin resistant Staphylococcus aureus infection as the cause of diseases classified elsewhere; Z66 Do not resuscitate; J44.9 Chronic obstructive pulmonary disease, unspecified; I08.0 Rheumatic disorders of both mitral and aortic valves; N18.9 Chronic kidney disease, unspecified; E11.621 Type 2 diabetes mellitus with foot ulcer; S92.351A Displaced fracture of fifth metatarsal bone, right foot, initial encounter for closed fracture; I25.10 Atherosclerotic heart disease of native coronary artery without angina pectoris; E11.42 Type 2 diabetes mellitus with diabetic polyneuropathy; K58.9 Irritable bowel syndrome, unspecified; M10.9 Gout, unspecified; I25.5 Ischemic cardiomyopathy; E78.5 Hyperlipidemia, unspecified; L97.512 Non-pressure chronic ulcer of other part of right foot with fat layer exposed; M11.261 Other chondrocalcinosis, right knee; N17.9 Acute kidney failure, unspecified; Z82.49 Family history of ischemic heart disease and other diseases of the circulatory system; Z79.01 Long term (current) use of anticoagulants; Z95.5 Presence of coronary angioplasty implant and graft; Z86.718 Personal history of other venous thrombosis and embolism; R53.1 Weakness; Z86.711 Personal history of pulmonary embolism; Z87.891 Personal history of nicotine dependence; Z83.3 Family history of diabetes mellitus; Z95.810 Presence of automatic (implantable) cardiac defibrillator; Z91.119 Patient's noncompliance with dietary regimen due to unspecified reason; Z95.1 Presence of aortocoronary bypass graft; Z90.49 Acquired absence of other specified parts of digestive tract
CPT/HCPCS: 36415; 36569; 71045; 73630; 73701; 80048; 80053; 80202; 81001; 82962; 83036; 83605; 83735; 84100; 85025; 85027; 85610; 85652; 85730; 86140; 87040; 87070; 87075; 87077; 87086; 87149; 87186; 87205; 87640; 88307; 88311; 93005; 93308; 93312; 93320; 93325; 94640; 97162; 97166; 97168; 97530; 97535; 97802; 97803; 99285; Q9957; Q9967; A4216; C8924